=== PATIENT | male | born 1940 | race Caucasian/White ===

== ENCOUNTER → 2016-12-13 | Outpatient (CLI) | payer MEDICARE, BC ==
[2016-12-13 11:42] LABS: Anisocytosis Slight; CH 30.1; CHCM 31.1; HCT 39.5 % (39.0-53.0); HDW 2.61; HGB 12.4 gm/dL (13.0-17.5); Hypochromasia Slight; MCH 30.4 pg (25.0-35.0); MCHC 31.4 g/dL (31.0-37.0); MCV 96.9 fL (80.0-100.0); Mean Platelet Volume 7.2; RBC 4.07 m/uL (4.30-5.90); RDW 16.1 % (11.5-15.5); WBC 19.6 k/uL (3.8-10.6)
[2016-12-13 11:58] LABS: Calcium 8.7 mg/dL (8.4-10.2); Potassium 4.4 mmol/L (3.5-5.1)
== END | disposition home or self-care (01) ==
LOC: LABWHC1 11:09
PROVIDERS: ATTEND Internal Medicine Clinical Cardiac Electrophysiology
DX: I42.8 Other cardiomyopathies (principal); E11.9 Type 2 diabetes mellitus without complications; I44.2 Atrioventricular block, complete
CPT/HCPCS: 36415; 80048; 85027

== ENCOUNTER 2016-12-20 12:46 | Day surgery (SDC) | payer MEDICARE, BC ==
[2016-12-17 16:13] VITALS: BMI 27.1
[~2016-12-20 12:46] MED LIST: CLINDAMYCIN 600 MG in SODIUM CHLORIDE 0.9% IRRIGATIO 250 ML IRRIGATION ONE; CLINDAMYCIN 900 MG in DEXTROSE 5% IN WATER 50 ML IVPB ONE; SODIUM CHLORIDE 0.9% 1,000 ML IV SCH
[2016-12-20] MEDS ORDERED: diphenhydrAMINE 50 MG/ML 1 ML VIAL ONE (13:40)
[2016-12-20] MEDS ORDERED: diphenhydrAMINE 50 MG/ML 1 ML VIAL IVP STA (13:41)
[2016-12-20 13:42] LABS: Glucose,Whole Blood 77 mg/dL (75-99)
[2016-12-20] MEDS ORDERED: fentaNYL (PF) 50 MCG/ML 2 ML AMP ONE (15:34)
[2016-12-20] MEDS ORDERED: PROPOFOL 10 MG/ML 20 ML VIAL IV ONE (15:34)
[2016-12-20] MEDS ORDERED: MIDAZOLAM 2 MG/2 ML VIAL ONE (15:34)
[2016-12-20] MEDS ORDERED: LIDOCAINE 2% INJ 20 MG/ML SQ ONE (16:01)
[2016-12-20] MEDS ORDERED: CLINDAMYCIN 600 MG in SODIUM CHLORIDE 0.9% IRRIGATIO 250 ML IRRIGATION ONE (16:19)
[2016-12-20] MEDS ORDERED: LIDOCAINE 1% INJ 10MG/ML (20 ML MDV) SQ ONE (16:51)
[2016-12-20] MEDS ORDERED: HYDROcodone/APAP 5-325MG 1 EACH TAB PO PRN (17:28)
[2016-12-20] MEDS ORDERED: ACETAMINOPHEN TAB 325 MG TAB PO PRN (17:28)
[2016-12-20] MEDS ORDERED: ACETAMINOPHEN IV (For NPO) 1,000 MG in EMPTY BAG 1 BAG IVPB ONE (17:28)
[2016-12-20] MEDS ORDERED: INSULIN DETEMIR 100 UNIT/ML 10 ML VIAL SQ SCH (17:30)
[2016-12-20] MEDS ORDERED: INSULIN LISPRO (humaLOG) 300 UNIT/3 ML VIAL SQ SCH (17:30)
--- NOTE | 2016-12-20 17:30 | P.PCN ---
Preoperative Diagnosis: Transvenous temporary pacing procedure Indication for the procedure: complete heart block, pacemaker dependency Patient was brought to the EP lab in a fasting state. Written informed consent was obtained prior to the procedure. The right groin was prepped and draped as a protocol. A 6-Turkmen sheath was placed in the right femoral vein. Via this, a temporary pacing catheter was placed in the right ventricle. Thresholds were interrogated. Temporary pacing was performed through the rest of the procedure. At the end of the entire procedure, the TVP was removed. The sheath was removed and hemostasis was assured. Patient tolerated the procedure well without any acute complications. Procedure performed Transvenous temporary pacing
[2016-12-20 18:13] LABS: Glucose,Whole Blood 85 mg/dL (75-99)
--- NOTE | 2016-12-20 18:38 | PCN ---
DATE OF PROCEDURE: This is a 76-year-old male patient who has nonischemic cardiomyopathy, complete heart block, status post bi-V ICD which was on advisory and therefore he is brought in for ICD generator change. He has had sustained ventricular tachycardia recurring, antitachycardia pacing. He also has paroxysmal atrial fibrillation. He is on methotrexate and prednisone for rheumatoid arthritis. The patient was brought to the EP lab in a fasting state. Written informed consent was obtained prior to the procedure after transvenous temporary pacing from the right femoral vein. The left pectoral area was prepped and draped as per protocol. IV antibiotics administered. An incision was made directly over the ICD generator and carried down to level of the generator. The generator was explanted. Partial capsulectomy was performed. Leads were freed and inspected and then interrogated. The new generator was implanted, secured to the underlying pectoralis muscle and the wound was closed in 3 layers and dressed per protocol. The explanted generator was a [employer] medical CD 3365-40 Q. serial #[id number] that was originally implanted 02/04/2015. The new generator was a [employer] medical model number MC3571-63 Q serial #[id number]. The RA lead was a [employer] model #5568, serial #[id number]. The RV ICD lead was a [employer] medical model #7122Q 65 cm in length and serial #[id number]. The LV lead was a [employer] medical model #1458 Q 86 cm in length and serial [id number]. The P waves were 4.4 mV. The pacing impedance 340 ohms, pacing threshold 0.75 v at 0.5 ms. Pacing threshold in the RV was 0.75 v at 0.5 ms, pacing impedance 650 ohms. LV pacing impedance was 1050. Pacing threshold 1 v at 0.5 ms. DFT testing under anesthesia: A DC fib shock was used to induce ventricular fibrillation. This was adequately and appropriately detected at least sensitivity without any dropoffs and successfully internally defibrillated with a 10 joule shock in the cathodal polarity. The charge time was 1.6 seconds. Shocking impedance 75 ohms. No postshock noise. RESULT: Successful biventricular ICD generator change for secondary prevention of sudden cardiac , heart failure management and pacing for complete heart block, (pacemaker dependent). PLAN: Continue current medications and hopefully, this can be maximized as an outpatient.
--- NOTE | 2016-12-20 18:40 | DS ---
DATE OF ADMISSION: 12/20/2016 DATE OF DISCHARGE: Mr. Diaz underwent a Bi-V ICD generator change. He will be discharged home tomorrow after completion of IV antibiotics. DFT was at or below 10 joules in the cathodal polarity. He required TVP because he has complete heart block, and pacemaker dependent.
[2016-12-20 18:42] LABS: Glucose,Whole Blood 89 mg/dL (75-99)
[2016-12-20] MEDS: CARVEDILOL 12.5 MG TAB PO SCH (19:49)
[2016-12-20] MEDS: predniSONE 20 MG TAB PO SCH (19:49)
[2016-12-20] MEDS: CLINDAMYCIN 900 MG in DEXTROSE 5% IN WATER 50 ML IVPB SCH ×2 (19:49)
[2016-12-20] MEDS ORDERED: SYMBICORT 80-4.5 MCG INHALER INHALATION SCH (20:00)
[2016-12-20] MEDS ORDERED: PRAVASTATIN SODIUM 40 MG TAB PO SCH (21:00)
[2016-12-20] MEDS ORDERED: MELATONIN 3 MG TABLET PO SCH (21:00)
[2016-12-20] MEDS ORDERED: CARVEDILOL 6.25 MG TAB PO SCH (21:00)
[2016-12-20 22:14] LABS: Glucose,Whole Blood 208 mg/dL (75-99)
[2016-12-21] MEDS: CLINDAMYCIN 900 MG in DEXTROSE 5% IN WATER 50 ML IVPB SCH ×6 (03:28→14:53)
[2016-12-21 06:44] LABS: Glucose,Whole Blood 216 mg/dL (75-99)
[2016-12-21] MEDS ORDERED: INSULIN LISPRO (humaLOG) 300 UNIT/3 ML VIAL SQ SCH ×2 (07:30→12:30)
[2016-12-21] MEDS: predniSONE 20 MG TAB PO SCH (08:10)
[2016-12-21 08:13] VITALS: RESP 18
[2016-12-21 08:19] LABS: Hemoglobin A1C 6.7 % (4.2-6.1)
[2016-12-21] MEDS: CARVEDILOL 12.5 MG TAB PO SCH (08:58)
[2016-12-21] MEDS ORDERED: ASPIRIN 81 MG CHEW PO SCH (09:00)
[2016-12-21] MEDS ORDERED: LOSARTAN 25 MG TAB PO SCH (09:00)
[2016-12-21] MEDS ORDERED: TORSEMIDE 20 MG TAB PO SCH (09:00)
[2016-12-21 12:18] LABS: Glucose,Whole Blood 236 mg/dL (75-99)
[2016-12-21 12:37] VITALS: BP 147/66; PULSE 60; TEMP 97.8
--- NOTE | 2016-12-22 18:22 | PN ---
Mark Diaz is a 76-year-old male patient who underwent Bi-V ICD generator change for a device alert advisory. Postoperatively on the 21 of December, he was doing well. No shortness of breath. No orthopnea or PND, but his blood pressure was quite high and he has been complaining of being short of breath and tired and fatigued. Therefore, I had increased dose of carvedilol the night before. He denies any chest discomfort. There is no hematoma. The wound is healing well. Heart sounds are normal. Breath sounds are normal. No rhonchi. No crackles. No S3 gallop. EXTREMITIES: Warm. No edema. IMPRESSION: 1. Severe cardiomyopathy. 2. Hypertension, uncontrolled. 3. Status post biventricular implantable cardioverter-defibrillator implantation. SUGGEST: Increase the dose of carvedilol and follow up in the pacemaker clinic in 5 days.
== END 2016-12-21 15:48 | disposition home or self-care (01) ==
LOC: CATHEP 12:46 → 3OBS 17:25 → CATHEP 12-21 15:48
PROVIDERS: ATTEND Internal Medicine Clinical Cardiac Electrophysiology
DX: Z45.02 Encounter for adjustment and management of automatic implantable cardiac defibrillator (principal); I42.9 Cardiomyopathy, unspecified; I44.2 Atrioventricular block, complete; I10 Essential (primary) hypertension; E78.2 Mixed hyperlipidemia; E11.9 Type 2 diabetes mellitus without complications; Z79.4 Long term (current) use of insulin; K21.9 Gastro-esophageal reflux disease without esophagitis; M05.10 Rheumatoid lung disease with rheumatoid arthritis of unspecified site; K44.9 Diaphragmatic hernia without obstruction or gangrene; I65.21 Occlusion and stenosis of right carotid artery; Z86.73 Personal history of transient ischemic attack (TIA), and cerebral infarction without residual deficits; Z87.891 Personal history of nicotine dependence; Z79.82 Long term (current) use of aspirin; Z79.52 Long term (current) use of systemic steroids; Z79.899 Other long term (current) drug therapy; Z88.0 Allergy status to penicillin; Z88.1 Allergy status to other antibiotic agents; Z91.041 Radiographic dye allergy status
CPT/HCPCS: 93641; 33264; 83036; C1894; C1769 ×2; C1730; C1882; J2001 ×2; J2250; J1200; J3010; J2704; J7512 ×2

== ENCOUNTER 2017-01-09 16:16 | Inpatient (IN) | payer MEDICARE, BC ==
[2017-01-09] MEDS ORDERED: SODIUM CHLORIDE 0.9% 500 ML IV STA (17:19)
[2017-01-09] MEDS ORDERED: SODIUM CHLORIDE 0.9% 1,000 ML IV STA (17:19)
[2017-01-09] MEDS ORDERED: IPRATROPIUM-ALBUTEROL 3 ML NEB INHALATION STA (17:20)
[2017-01-09] MEDS ORDERED: ACETAMINOPHEN IV (For NPO) 1,000 MG in EMPTY BAG 1 BAG IVPB STA (17:20)
--- NOTE | 2017-01-09 17:32 | ED ---
General Adult HPI - General Chief complaint: Fever Stated complaint: Cough/Weakness Time Seen by Provider: 01/09/17 17:19 Source: patient, family, RN notes reviewed, old records reviewed Mode of arrival: wheelchair Limitations: no limitations - History of Present Illness Initial comments: This is a 76-year-old male here for evaluation. The patient is safe for evaluation of shortness of breath cough and congestion, positive fever. Patient states feels just like prior history of pneumonia, patient has history of COPD and mild heart disease. Patient states he has no significant chest pain at this time, mild diaphoresis occasional with fever. No modifying factors for symptoms at all, not currently on. She was. Patient states symptoms going on for about 2 days progressively worsening, to the patient was worse and unable to get activities done. - Related Data Home Medications Medication Instructions Recorded Confirmed Allopurinol [Allopurinol] 300 mg PO DAILY 05/31/16 01/09/17 Aspirin EC [Ecotrin Low Dose] 81 mg PO DAILY 05/31/16 01/09/17 Insulin Detemir [Levemir Flextouch] 48 - 50 units SQ HS 05/31/16 01/09/17 Pantoprazole Sodium [Pantoprazole 40 mg PO DAILY 05/31/16 01/09/17 Sodium] Pravastatin Sodium [Pravastatin 40 mg PO HS 05/31/16 01/09/17 Sodium] Multivitamin [Men's Multi-Vitamin] 1 tab PO DAILY 12/17/16 01/09/17 Carvedilol [Coreg] 12.5 mg PO BID 01/09/17 01/09/17 Folic Acid 1 mg PO DAILY 01/09/17 01/09/17 INSULIN LISPRO (humaLOG) [humaLOG 7 - 10 units SQ AC-TID 01/09/17 01/09/17 (formulary)] Losartan [Cozaar] 25 mg PO DAILY 01/09/17 01/09/17 Torsemide 10 mg PO DAILY 01/09/17 01/09/17 predniSONE 20 mg PO BID 01/09/17 01/09/17 Allergies Allergy/AdvReac Type Severity Reaction Status Date / Time amlodipine Allergy Swelling Verified 01/09/17 18:41 amoxicillin trihydrate Allergy Nausea & Verified 01/09/17 18:41 [From Augmentin] Vomiting iodine Allergy Rash/Hives Verified 01/09/17 17:08 metronidazole [From Flagyl] Allergy Rash/Hives Verified 01/09/17 18:41 potassium clavulanate Allergy Nausea & Verified 01/09/17 18:41 [From Augmentin] Vomiting shrimp Allergy Rash/Hives Verified 01/09/17 17:08 acarbose AdvReac Abdominal Verified 01/09/17 17:08 Pain doxycycline AdvReac Anaphylaxis Verified 01/09/17 18:41 Review of Systems ROS Statement: Those systems with pertinent positive or pertinent negative responses have been documented in the HPI. ROS Other: All systems not noted in ROS Statement are negative. Past Medical History Past Medical History: COPD, CVA/TIA, Hyperlipidemia, Hypertension Additional Past Medical History / Comment(s): Hiatal hernia, CVA, diverticulosis History of Any Multi-Drug Resistant Organisms: None Reported Past Surgical History: AICD, Back Surgery, Pacemaker Past Psychological History: No Psychological Hx Reported Smoking Status: Former smoker Past Alcohol Use History: None Reported Past Drug Use History: None Reported General Exam Limitations: no limitations General appearance: alert, anxious, in distress Head exam: Present: atraumatic, normocephalic, normal inspection Eye exam: Present: normal appearance, PERRL, EOMI. Absent: scleral icterus, conjunctival injection, periorbital swelling ENT exam: Present: normal exam, mucous membranes moist Neck exam: Present: normal inspection. Absent: tenderness, meningismus, lymphadenopathy Respiratory exam: Present: normal lung sounds bilaterally, wheezes, accessory muscle use, decreased breath sounds, prolonged expiratory. Absent: respiratory distress, rales, rhonchi, stridor Cardiovascular Exam: Present: regular rate, normal rhythm, normal heart sounds. Absent: systolic murmur, diastolic murmur, rubs, gallop, clicks GI/Abdominal exam: Present: soft, normal bowel sounds. Absent: distended, tenderness, guarding, rebound, rigid Extremities exam: Present: normal inspection, full ROM, normal capillary refill. Absent: tenderness, pedal edema, joint swelling, calf tenderness Back exam: Present: normal inspection Neurological exam: Present: alert, oriented X3, CN II-XII intact Psychiatric exam: Present: normal affect, normal mood Skin exam: Present: warm, dry, intact, normal color. Absent: rash Course Vital Signs 01/09/17 01/09/17 01/09/17 17:06 17:39 17:53 Temperature 100.0 F H Pulse Rate 97 100 100 Respiratory 20 Rate Blood Pressure 153/75 O2 Sat by Pulse 97 Oximetry 01/09/17 18:54 Temperature 100.8 F H Pulse Rate 98 Respiratory 18 Rate Blood Pressure 149/86 O2 Sat by Pulse 95 Oximetry - Reevaluation(s) Reevaluation #1: 01/09/17 19:00 Patient with no real significant improvement of breathing and/or symptoms EKG Findings - EKG Comments: EKG Findings:: EKG shows paced rhythm rate of 90, IN 140, QRS 126, QTc 479 Medical Decision Making - Medical Decision Making Rhizomelia reversed if he returns with cough and congestion COPD exacerbation with probable underlying pneumonia positive fever positive flu elevated troponin , and STEMI, no EKG changes. Patient be admitted for cardiopulmonary status and hemodynamic monitoring - Lab Data Result diagrams: 01/09/17 17:25 01/09/17 17:25 Lab Results 01/09/17 01/09/17 01/09/17 Range/Units 17:25 17:25 17:25 WBC 23.1 H (3.8-10.6) k/uL RBC 4.57 (4.30-5.90) m/uL Hgb 13.6 (13.0-17.5) gm/dL Hct 41.6 (39.0-53.0) % MCV 91.1 D (80.0-100.0) fL MCH 29.7 (25.0-35.0) pg MCHC 32.5 (31.0-37.0) g/dL RDW 16.8 H (11.5-15.5) % Plt Count 253 (150-450) k/uL Neutrophils % 59 % Lymphocytes % 35 % Monocytes % 3 % Eosinophils % 1 % Basophils % 1 % Neutrophils # 13.7 H (1.3-7.7) k/uL Lymphocytes # 8.0 H (1.0-4.8) k/uL Monocytes # 0.7 (0-1.0) k/uL Eosinophils # 0.2 (0-0.7) k/uL Basophils # 0.1 (0-0.2) k/uL Anisocytosis Slight PT (9.0-12.0) sec INR (<1.1) APTT (22.0-30.0) sec Sodium 139 (137-145) mmol/L Potassium 3.6 (3.5-5.1) mmol/L Chloride 102 (98-107) mmol/L Carbon Dioxide 27 (22-30) mmol/L Anion Gap 10 mmol/L BUN 26 H (9-20) mg/dL Creatinine 1.30 H (0.66-1.25) mg/dL Est GFR (MDRD) Af Amer >60 (>60 ml/min/1.73 sqM) Est GFR (MDRD) Non-Af 54 (>60 ml/min/1.73 sqM) Glucose 116 H (74-99) mg/dL Plasma Lactic Acid Daljit (0.7-2.0) mmol/L Calcium 8.7 (8.4-10.2) mg/dL Phosphorus 3.0 (2.5-4.5) mg/dL Magnesium 1.7 (1.6-2.3) mg/dL Total Bilirubin 0.9 (0.2-1.3) mg/dL AST 21 (17-59) U/L ALT 43 (21-72) U/L Alkaline Phosphatase 56 (38-126) U/L Total Creatine Kinase 39 L (55-170) U/L CK-MB (CK-2) 0.6 (0.0-2.4) ng/mL CK-MB (CK-2) Rel Index 1.5 Troponin I 0.137 H* (0.000-0.034) ng/mL Total Protein 6.2 L (6.3-8.2) g/dL Albumin 3.4 L (3.5-5.0) g/dL Influenza Type A RNA (Not Detectd) Influenza Type B (PCR) (Not Detectd) 01/09/17 01/09/17 01/09/17 Range/Units 17:25 17:25 17:53 WBC (3.8-10.6) k/uL RBC (4.30-5.90) m/uL Hgb (13.0-17.5) gm/dL Hct (39.0-53.0) % MCV (80.0-100.0) fL MCH (25.0-35.0) pg MCHC (31.0-37.0) g/dL RDW (11.5-15.5) % Plt Count (150-450) k/uL Neutrophils % % Lymphocytes % % Monocytes % % Eosinophils % % Basophils % % Neutrophils # (1.3-7.7) k/uL Lymphocytes # (1.0-4.8) k/uL Monocytes # (0-1.0) k/uL Eosinophils # (0-0.7) k/uL Basophils # (0-0.2) k/uL Anisocytosis PT 9.8 (9.0-12.0) sec INR 1.0 (<1.1) APTT 20.6 L (22.0-30.0) sec Sodium (137-145) mmol/L Potassium (3.5-5.1) mmol/L Chloride (98-107) mmol/L Carbon Dioxide (22-30) mmol/L Anion Gap mmol/L BUN (9-20) mg/dL Creatinine (0.66-1.25) mg/dL Est GFR (MDRD) Af Amer (>60 ml/min/1.73 sqM) Est GFR (MDRD) Non-Af (>60 ml/min/1.73 sqM) Glucose (74-99) mg/dL Plasma Lactic Acid Daljit 1.7 (0.7-2.0) mmol/L Calcium (8.4-10.2) mg/dL Phosphorus (2.5-4.5) mg/dL Magnesium (1.6-2.3) mg/dL Total Bilirubin (0.2-1.3) mg/dL AST (17-59) U/L ALT (21-72) U/L Alkaline Phosphatase (38-126) U/L Total Creatine Kinase (55-170) U/L CK-MB (CK-2) (0.0-2.4) ng/mL CK-MB (CK-2) Rel Index Troponin I (0.000-0.034) ng/mL Total Protein (6.3-8.2) g/dL Albumin (3.5-5.0) g/dL Influenza Type A RNA Detected A (Not Detectd) Influenza Type B (PCR) Detected A (Not Detectd) - Radiology Data Radiology results: report reviewed (Chest x-ray shows possible pneumonia), image reviewed Critical Care Time Critical Care Time: Yes Total Critical Care Time: 31 Disposition Clinical Impression: Influenza, NSTEMI (non-ST elevated myocardial infarction), Fever Disposition: ADMITTED IP TO THIS HOSP Condition: Serious Referrals: Rikki Trent DO [Primary Care Provider] - 1-2 days
[2017-01-09 18:10] LABS: Anisocytosis Slight; Basophils # (A) 0.1 k/uL (0-0.2); Basophils % (A) 1 %; CH 30.6; CHCM 33.6; Eosinophils # (A) 0.2 k/uL (0-0.7); Eosinophils % (A) 1 %; HCT 41.6 % (39.0-53.0); HGB 13.6 gm/dL (13.0-17.5); Luc # (Auto) 0.42; Luc % (Auto) 2; Lymphocytes % (A) 35 %; MCH 29.7 pg (25.0-35.0); MCHC 32.5 g/dL (31.0-37.0); Mean Platelet Volume 7.4; Monocytes # (A) 0.7 k/uL (0-1.0); Monocytes % (A) 3 %; Neutrophils # (A) 13.7 k/uL (1.3-7.7); Neutrophils % (A) 59 %; RBC 4.57 m/uL (4.30-5.90); RDW 16.8 % (11.5-15.5); WBC 23.1 k/uL (3.8-10.6); WBC (Perox) 22.44
[2017-01-09 18:25] LABS: Prothrombin Time 9.8 sec (9.0-12.0)
[2017-01-09 18:32] LABS: MCV 91.1 fL (80.0-100.0)
[2017-01-09 18:35] LABS: ALT 43 U/L (21-72); AST 21 U/L (17-59); Alkaline Phosphatase 56 U/L (38-126); Anion Gap 10 mmol/L; Blood Urea Nitrogen 26 mg/dL (9-20); Calcium 8.7 mg/dL (8.4-10.2); Carbon Dioxide 27 mmol/L (22-30); Chloride 102 mmol/L (98-107); Glucose 116 mg/dL (74-99); Magnesium 1.7 mg/dL (1.6-2.3); Non-African American GFR(MDRD) 54 (>60 ml/min/1.73 sqM); Potassium 3.6 mmol/L (3.5-5.1); Sodium 139 mmol/L (137-145); Total Bilirubin 0.9 mg/dL (0.2-1.3); Total Protein 6.2 g/dL (6.3-8.2)
[2017-01-09 18:40] LABS: Partial Thromboplastin Time 20.6 sec (22.0-30.0)
--- NOTE | 2017-01-09 18:40 | XR ---
EXAMINATION TYPE: XR chest 2V DATE OF EXAM: 01/09/2017 6:35 PM COMPARISON: 10/30/2016 HISTORY: Cough and congestion TECHNIQUE: Frontal and lateral views of the chest are obtained. FINDINGS: There is no heart failure nor confluent pneumonic infiltrate. There are no hilar masses. T here is a left axillary pacemaker with the lead tips in the right ventricle. There are chest leads. T here is no pleural effusion. Bony thorax is intact. IMPRESSION: No active cardiopulmonary disease. There is improved aeration of the lung bases compared to last exam. No heart failure.
[2017-01-09 18:50] LABS: Creatine Kinase MB 0.6 ng/mL (0.0-2.4)
[2017-01-09 18:52] LABS: Troponin I 0.137 ng/mL (0.000-0.034)
[2017-01-09] MEDS ORDERED: OSELTAMIVIR 75 MG CAP PO STA (18:55)
[2017-01-09] MEDS ORDERED: HEPARIN SODIUM,PORCINE 5,000 UNIT/ML 1 ML VIAL IV ONE (18:57)
[2017-01-09] MEDS ORDERED: ASPIRIN 81 MG CHEW PO STA (18:57)
[2017-01-09] MEDS ORDERED: NITROGLYCERIN SL TABS 0.4 MG TAB SUBLINGUAL PRN (18:57)
[2017-01-09] MEDS ORDERED: MORPHINE SULFATE 4 MG/ML SYRINGE IV PRN (18:57)
[2017-01-09] MEDS ORDERED: HEPARIN SODIUM,PORCINE/D5W PMX 25,000 UNIT in DEXTROSE/WATER 1 500ML.BAG IV SCH (19:00)
[2017-01-09] MEDS: SODIUM CHLORIDE 0.9% 1,000 ML IV SCH (19:25)
[2017-01-09] MEDS: IPRATROPIUM-ALBUTEROL 3 ML NEB INHALATION SCH (20:19)
[2017-01-09 23:15] LABS: Appearance,Urine Clear (Clear); Bilirubin,Urine Negative (Negative); Glucose,Urine (UA) Negative (Negative); Ketones,Urine Negative (Negative); Leukocyte Esterase,Urine Negative (Negative); Mucus,Urine Rare /hpf; Nitrite,Urine Negative (Negative); PH, Urine 5.5 (5.0-8.0); Particle Count 775; Protein,Urine 1+ (Negative); RBC,Urine 1 /hpf (0-5); Specific Gravity,Urine 1.012 (1.001-1.035); UA Billing (MACRO vs. MICRO) MICRO; Urobilinogen,Urine <2.0 mg/dL (<2.0); WBC,Urine <1 /hpf (0-5)
[2017-01-10 00:28] LABS: Glucose,Whole Blood 131 mg/dL (75-99)
[2017-01-10 01:06] LABS: Creatine Kinase MB 0.7 ng/mL (0.0-2.4)
[2017-01-10 01:09] LABS: Troponin I 0.137 ng/mL (0.000-0.034)
[2017-01-10] MEDS ORDERED: HEPARIN SODIUM,PORCINE 5,000 UNIT/ML 1 ML VIAL IV PRN (01:31)
[2017-01-10 03:32] VITALS: BMI 29.7
[2017-01-10 06:31] LABS: Mean Platelet Volume 7.7
[2017-01-10 06:32] LABS: Glucose,Whole Blood 182 mg/dL (75-99)
[2017-01-10 06:41] LABS: Cholesterol 169 mg/dL (<200); HDL Cholesterol 61 mg/dL (40-60); Triglycerides 277 mg/dL (<150)
[2017-01-10] MEDS: SODIUM CHLORIDE 0.9% 1,000 ML IV SCH ×3 (06:58→22:18)
[2017-01-10] MEDS: INSULIN LISPRO (humaLOG) 300 UNIT/3 ML VIAL SQ SCH ×4 (06:58→22:20)
[2017-01-10 07:03] LABS: Creatine Kinase MB 0.8 ng/mL (0.0-2.4)
[2017-01-10 07:05] LABS: Troponin I 0.088 ng/mL (0.000-0.034)
[2017-01-10] MEDS: IPRATROPIUM-ALBUTEROL 3 ML NEB INHALATION SCH ×4 (08:16→19:51)
[2017-01-10] MEDS: ASPIRIN 325 MG TAB PO SCH (08:39)
[2017-01-10] MEDS ORDERED: ATORVASTATIN 80 MG TAB PO SCH ×2 (09:00→21:00)
[2017-01-10] MEDS ORDERED: OSELTAMIVIR 75 MG CAP PO SCH (09:00)
[2017-01-10 10:08] LABS: Hemoglobin A1C 7.4 % (4.2-6.1)
--- NOTE | 2017-01-10 10:51 | ECHOF ---
Referral Reason:elevtROP MEASUREMENTS -------- HEIGHT: 182.9 cm WEIGHT: 99.3 kg BP: 169/75 RVIDd: 2.9 cm (< 3.3) IVSd: 1.4 cm (0.6 - 1.1) LVIDd: 4.7 cm (3.9 - 5.3) LVPWd: 1.5 cm (0.6 - 1.1) IVSs: 1.8 cm LVIDs: 3.6 cm LVPWs: 2.0 cm LA Diam: 3.7 cm (2.7 - 3.8) LAESV Index (A-L): 36.61 ml/m Ao Diam: 3.5 cm (2.0 - 3.7) AV Cusp: 2.3 cm (1.5 - 2.6) LA Diam: 3.6 cm (2.7 - 3.8) MV EXCURSION: 12.842 mm (> 18.000) MV EF SLOPE: 96 mm/s (70 - 150) EPSS: 0.9 cm MV E Valerio: 1.17 m/s MV DecT: 191 ms MV A Valerio: 1.12 m/s MV E/A Ratio: 1.04 AR PHT: 612 ms RAP: 5.00 mmHg RVSP: 40.48 mmHg FINDINGS -------- Paced rhythm. Pacerwire seen in RV and RA. This was a technically good study. There is moderate concentric left ventricular hypertrophy. Overall left ventricular systolic function is normal with, an EF between 55 - 60 %. The right ventricle is normal in size. LA is moderately dilated 34-39 ml/m2 The right atrium is normal in size. Aortic valve is trileaflet and is mildly thickened. There is mild aortic regurgitation. The mitral valve leaflets are mildly thickened. Mild mitral annular calcification present. Mild mitral regurgitation is present. Mild tricuspid regurgitation present. There is no evidence of pulmonary hypertension. The right ventricular systolic pressure, as measured by Doppler, is 40.48mmHg. Trace/mild (physiologic) pulmonic regurgitation. The aortic root size is normal. Normal inferior vena cava with normal inspiratory collapse consistent with estimated right atrial pressure of 5 mmHg. Echo free space may represent effusion or a pericardial fat pad. CONCLUSIONS -------- 1. Paced rhythm. 2. There is mild aortic regurgitation. 3. The mitral valve leaflets are mildly thickened. 4. Mild mitral annular calcification present. 5. Mild mitral regurgitation is present. 6. Mild tricuspid regurgitation present. 7. There is no evidence of pulmonary hypertension. 8. The right ventricular systolic pressure, as measured by Doppler, is 40.48mmHg. 9. Trace/mild (physiologic) pulmonic regurgitation. 10. The aortic root size is normal. 11. Echo free space may represent effusion or a pericardial fat pad. 12. Pacerwire seen in RV and RA. 13. This was a technically good study. 14. There is moderate concentric left ventricular hypertrophy. 15. Overall left ventricular systolic function is normal with, an EF between 55 - 60 %. 16. The right ventricle is normal in size. 17. LA is moderately dilated 34-39 ml/m2 18. The right atrium is normal in size. 19. Aortic valve is trileaflet and is mildly thickened. [employer]ATING SAF[employer]Y OFFICER: Lucy Christine RDCS
--- NOTE | 2017-01-10 11:07 | CONS ---
DATE OF CONSULTATION: CHIEF COMPLAINT: Elevated troponin. HISTORY OF PRESENT ILLNESS: Mark is a 74-year-old gentleman with history of sick sinus syndrome, status post permanent pacemaker placement, dyslipidemia, hypertension and insulin-dependent diabetes who presented to hospital with a flulike illness. He has had fever, cough, productive sputum for the last few days and on this admission he had a troponins done that came back elevated for which cardiology has been consulted. His tropes are at 0.1, 0.1 and 0.08. EKG reveals paced rhythm without acute ST-T wave changes. I believe the troponin elevation is related to the acute illness related to flow and patient did not have acute myocardial infarction. He is positive for both influenza A and B. I am going to stop his IV heparin and put him on subcu heparin and continue supportive care. His prognosis is guarded from the flu. Past medical history is significant for hypertension, dyslipidemia, sick sinus syndrome, status post permanent pacemaker placement. MEDICATIONS: 1. He is on pravastatin 40 daily. 2. Protonix. 3. Cozaar 25 daily. 4. Multivitamin. 5. Insulin. 6. Allopurinol. 7. Aspirin. 8. Coreg. 9. Torsemide. THE PATIENT IS ALLERGIC TO AMLODIPINE IODINE, AUGMENTIN, FLAGYL, SHRIMP AND DOXYCYCLINE. FAMILY HISTORY: Negative for premature coronary artery disease. SOCIAL HISTORY: Negative for current smoking, ETOH abuse, or drug abuse. REVIEW OF SYSTEMS: HEENT: Significant for stuffy nose. RESPIRATORY: As described above. CARDIAC: As described above. GI: Negative. GENITOURINARY: Negative. Allergy/immunology: Negative. SKIN: Negative. MUSCULOSKELETAL: Significant for aches and pains. ENDOCRINE: Negative. HEMATOLOGICAL: Negative. Oncological: Negative. DERM: Negative. The rest of the system review is not relevant. On exam, heart rate is 90 beats per minute, blood pressure 198/84, respiratory rate is 18. Chest exam reveals occasional rhonchi bilaterally. Heart exam reveals first and second heart sounds. Systolic murmur at the apex. Abdomen soft. Exam of the extremities did not reveal edema. Peripheral pulses are felt. Labs show the elevated troponins, LDL cholesterol is normal. BUN is 26. Creatinine is 1.3. Potassium is 3.6. Hemoglobin is 13.6, platelet count is 253. ASSESSMENT: 1. Elevated troponin probably related to flu like illness. 2. Uncontrolled hypertension. 3. Flu. 4. Sick sinus syndrome, status post permanent pacemaker placement. PLAN: We will control his blood pressure optimally. He does not require further cardiac evaluation on this admission but on discharge we will set up an appointment with cardiology.
[2017-01-10 11:35] LABS: Glucose,Whole Blood 188 mg/dL (75-99)
[2017-01-10] MEDS: CARVEDILOL 12.5 MG TAB PO SCH ×2 (12:16→17:38)
[2017-01-10] MEDS: LOSARTAN 25 MG TAB PO SCH (12:16)
[2017-01-10] MEDS ORDERED: HYDROcodone/APAP 5-325MG 1 EACH TAB PO PRN (13:51)
[2017-01-10] MEDS ORDERED: ACETAMINOPHEN TAB 500 MG TAB PO PRN (13:51)
[2017-01-10] MEDS ORDERED: ALPRAZolam 0.25 MG TAB PO PRN (13:51)
[2017-01-10] MEDS ORDERED: NON-FORMULARY DRUG (Aspirin Ec 81 MG) PO SCH (14:00)
--- NOTE | 2017-01-10 14:37 | HP ---
DATE OF ADMISSION: The chief complaints are fever and weakness. HISTORY OF PRESENT ILLNESS: This 76-year-old gentleman with a past medical history of diabetes mellitus, hypertension, hyperlipidemia, history of CVA, TIA, history of hiatal hernia, history of cardiomyopathy nonischemic, history of AICD, history of DJD, being followed by Dr. Rikki Trent in [place], was not feeling well for the past couple of days according to the family. The patient had initially cough and sputum and subsequently patient felt tired and weak and patient came to [facility] and admitted for further evaluation of treatment. There is no history of any headache, loss of consciousness, confusion, hematemesis, hematochezia, melena at this time. White count is elevated to 23.1, creatinine is 1.3, glucose is 188, troponin is 0.137, 0.137, 0.088. The EKG present on admission showed paced rhythm. Otherwise, the chest x-ray was also done, which showed no active pulmonary disease. A 2-D echo with a Doppler showed ejection fraction about 55% to 60% with LA moderately dilated at 34 to 39 mL. Medications prior to admission include, home medications are: 1. Torsemide 10 mg p.o. daily. 2. Coreg 12.5 mg p.o. b.i.d. 3. Ecotrin 81 mg p.o. daily. 4. Allopurinol 300 mg b.i.d. 5. Levemir 48 to 50 subQ q.h.s. 6. Humalog scale 7 to 10 units a.c. t.i.d. 7. Folic acid 1 mg daily. 8. Multivitamin 1 p.o. daily. 9. Cozaar 25 mg daily. 10. Prednisone 20 mg p.o. b.i.d. 11. Pravastatin 40 mg q.h.s. 12. Protonix 40 mg daily. ALLERGIES: AMLODIPINE, AMOXICILLIN, LODINE, METRONIDAZOLE, AUGMENTIN, ACARBOSE, DOXYCYCLINE. FAMILY HISTORY: No history of heart disease or strokes in the family. SOCIAL HISTORY: History of smoking. Occasional alcohol intake. REVIEW OF SYSTEMS: ENT: No diminished in vision or hearing. CARDIOVASCULAR: As mentioned earlier. RESPIRATORY SYSTEM: As mentioned earlier. GI: No nausea. : No dysuria. NERVOUS SYSTEM: No numbness or weakness. ALLERGY/IMMUNOLOGY: No asthma or hayfever. MUSCULOSKELETAL: As mentioned earlier. HEMATOLOGY: No history of anemia. ENDOCRINE: No history of diabetes and hypothyroidism. CONSTITUTIONAL: As mentioned earlier. DERMATOLOGY: Negative. RHEUMATOLOGY: Negative. PSYCHIATRY: As mentioned earlier. PHYSICAL EXAM: Patient is alert and oriented x3. Pulse 77, blood pressure 137/66, respirations 18, temperature 98.4, pulse ox 93% on room air. HEENT: Conjunctivae normal. Oral mucosa moist. NECK: No jugular venous distension. No carotid bruit, no lymph node enlargement. CARDIOVASCULAR SYSTEM: S1, S2, muffled. No S3, no S4. RESPIRATORY: Breath sounds diminished at the bases, a few scattered rhonchi, no crackles. Abdomen is soft, nontender. No mass palpable. EXTREMITIES: No edema, nos welling. NERVOUS SYSTEMS: Higher functions as mentioned earlier. Moves all 4 limbs. No focal motor or sensory deficits. LYMPHATICS: No lymph node palpable in neck, axillae or groin. SKIN: No ulcers, rash or bleeding. Labs are WBC is 23.1 and hemoglobin is 13.6. Otherwise APTT is 20.6, creatinine is 1.3. Other labs are noted. Influenza A is positive. ASSESSMENT: 1. Acute influenza A with respiratory distress and as well as acute purulent tracheobronchitis. 2. Increased WBC. 3. Troponin 0.137, rule out acute non-ST segment elevation myocardial infarction. 4. Increased creatinine with chronic kidney disease stage III. 5. Hypertriglyceridemia. 6. Mild hypoalbuminemia. 7. History of nonischemic cardiomyopathy and biventricular AICD. 8. History of cerebrovascular accident, transient ischemic attack. 9. Diabetes mellitus type 2. 10. Hypertension. 11. Hyperlipidemia. 12. History of hiatal hernia. 13. History of degenerative joint disease, back surgery. 14. Remote history nicotine dependence. 15. FULL CODE. RECOMMENDATION: In this 76-year-old gentleman who presented with multiple complex medical issues, will monitor the patient closely. Continue with the current medications. Continue with the symptomatic treatment Tamiflu, empiric antibiotics, bronchodilators. I would recommend a closely follow up with Cardiology. Guarded prognosis because of multiple complex medical issues and further recommendations to follow. Medication reconciliation has also been done. Ejection fraction is noted and will resume the home medications as well. Further recommendations to follow.
[2017-01-10] MEDS ORDERED: LEVOFLOXACIN 500MG-D5W PMX 500 MG in DEXTROSE/WATER 1 100ML.BAG IVPB SCH (15:00)
[2017-01-10 16:58] LABS: Glucose,Whole Blood 192 mg/dL (75-99)
[2017-01-10] MEDS: HEPARIN SODIUM,PORCINE 5,000 UNIT/ML 1 ML VIAL SQ SCH ×2 (17:38→22:19)
[2017-01-10] MEDS ORDERED: INSULIN DETEMIR 100 UNIT/ML 10 ML VIAL SQ SCH (21:00)
[2017-01-10] MEDS ORDERED: MELATONIN 3 MG TABLET PO SCH (21:00)
[2017-01-10] MEDS: predniSONE 20 MG TAB PO SCH (22:19)
[2017-01-10 22:23] LABS: Glucose,Whole Blood 150 mg/dL (75-99)
[2017-01-10 22:57] VITALS: TEMP 98.4
[2017-01-11 06:15] LABS: Anisocytosis Slight; Basophils % (A) 0 %; CH 30.7; CHCM 33.2; Eosinophils % (A) 0 %; HCT 32.5 % (39.0-53.0); HGB 10.3 gm/dL (13.0-17.5); Luc # (Auto) 0.19; Luc % (Auto) 2; Lymphocytes # (A) 2.5 k/uL (1.0-4.8); Lymphocytes % (A) 21 %; MCH 29.6 pg (25.0-35.0); MCHC 31.9 g/dL (31.0-37.0); MCV 92.9 fL (80.0-100.0); Monocytes # (A) 0.3 k/uL (0-1.0); Monocytes % (A) 3 %; Neutrophils % (A) 75 %; RDW 16.5 % (11.5-15.5); WBC 12.1 k/uL (3.8-10.6); WBC (Perox) 11.45
[2017-01-11 06:17] LABS: Anion Gap 7 mmol/L; Blood Urea Nitrogen 17 mg/dL (9-20); Calcium 7.8 mg/dL (8.4-10.2); Carbon Dioxide 25 mmol/L (22-30); Chloride 105 mmol/L (98-107); Glucose 160 mg/dL (74-99); Non-African American GFR(MDRD) >60 (>60 ml/min/1.73 sqM); Potassium 4.2 mmol/L (3.5-5.1); Sodium 137 mmol/L (137-145)
[2017-01-11 07:20] LABS: Glucose,Whole Blood 150 mg/dL (75-99)
[2017-01-11] MEDS ORDERED: PANTOPRAZOLE 40 MG TABLET PO SCH (07:30)
[2017-01-11 07:38] VITALS: RESP 19
[2017-01-11] MEDS: INSULIN LISPRO (humaLOG) 300 UNIT/3 ML VIAL SQ SCH ×2 (07:56→12:22)
[2017-01-11] MEDS: CARVEDILOL 12.5 MG TAB PO SCH (07:57)
[2017-01-11] MEDS: LOSARTAN 25 MG TAB PO SCH (08:48)
[2017-01-11] MEDS: HEPARIN SODIUM,PORCINE 5,000 UNIT/ML 1 ML VIAL SQ SCH (08:48)
[2017-01-11] MEDS: predniSONE 20 MG TAB PO SCH (08:48)
[2017-01-11] MEDS: ASPIRIN 325 MG TAB PO SCH (08:48)
[2017-01-11] MEDS ORDERED: TORSEMIDE 20 MG TAB PO SCH (09:00)
[2017-01-11] MEDS ORDERED: ALLOPURINOL 300 MG TAB PO SCH (09:00)
[2017-01-11] MEDS ORDERED: OSELTAMIVIR 75 MG CAP PO SCH ×2 (09:00→21:00)
[2017-01-11] MEDS: IPRATROPIUM-ALBUTEROL 3 ML NEB INHALATION SCH ×2 (09:56→13:16)
[2017-01-11 11:44] LABS: Glucose,Whole Blood 230 mg/dL (75-99)
[2017-01-11] MEDS ORDERED: MULTIVITAMINS, THERA 1 EACH TAB PO SCH (12:00)
[2017-01-11] MEDS ORDERED: FOLIC ACID 1 MG TAB PO SCH (12:00)
[2017-01-11] MEDS: SODIUM CHLORIDE 0.9% 1,000 ML IV SCH (12:14)
[2017-01-11 12:16] VITALS: BP 128/61; PULSE 85
--- NOTE | 2017-01-12 08:29 | DS ---
DATE OF ADMISSION: 01/09/2017 DATE OF DISCHARGE: 01/11/2017 FINAL DIAGNOSES: 1. Acute influenza A with respiratory distress as well as acute tracheobronchitis. 2. Increased WBC. 3. Troponin 0.137 possibly, indeterminate. 4. Increased creatinine with chronic kidney disease, stage III. 5. Hypertriglyceridemia. 6. Mild hypoalbuminemia. 7. History of nonischemic cardiomyopathy and biventricular automatic implantable cardioverter defibrillator. 8. History of cerebrovascular accident, transient ischemic attack. 9. Diabetes mellitus type 2. 10. Hypertension. 11. Hyperlipidemia. 12. History of hiatal hernia. 13. History of degenerative joint disease, back surgery. 14. Remote history of nicotine dependence. 15. FULL CODE. DISCHARGE DISPOSITION: The patient will be discharged in stable condition with guarded prognosis. Cardiology cleared the patient for discharge. HISTORY OF PRESENT ILLNESS: This 76-year-old gentleman with a past medical history of multiple medical problems was admitted with fever and weakness and influenza A. The patient was treated with Tamiflu and antibiotics and improved significantly. Troponins were found to be 0.137. Dr. Thacker saw the patient and recommended outpatient follow-up. On exam, vitals are stable. CARDIOVASCULAR SYSTEM: S1, S2 muffled. ABDOMEN: Soft. Nervous system: No focal deficits. Creatinine improved to 1.1 and the patient did not have chest pain at all. The patient is keen on going home. Patient and family keen on going home. The patient will be discharged in stable condition with guarded prognosis with the following advice and medications: 1. Diet is cardiac . 2. Activity limited until follow-up. 3. Follow up with Dr. Rikki Trent in 1 to 2 days. 4. Follow up with cardiology as advised in one week and continued follow-up. 5. Medications are Tylenol 500 mg q.6 p.r.n. 6. Allopurinol 300 mg p.o. daily. 7. Ecotrin 81 mg p.o. daily. 8. Coreg 12.5 mg p.o. b.i.d. 9. Folic acid 1 mg p.o. daily. 10. Humalog 7 to 10 units subcu as before. 11. Levemir 48 to 50 units subcu at bedtime as before. 12. Levaquin 500 mg p.o. daily for 5 days. 13. Cozaar 25 mg p.o. daily. 14. Multivitamins one p.o. daily. 15. Nitrostat 0.4 sublingual p.r.n. 16. Tamiflu 75 milligrams p.o. b.i.d. for 3 more days. 17. Protonix 40 mg daily. 18. Pravastatin 40 mg q.h.s. 19. Torsemide 10 mg daily. 20. Prednisone 20 mg p.o. b.i.d. Consider further evaluation including stress test as an outpatient.
== END 2017-01-11 15:56 | disposition home or self-care (01) | DRG 194 ==
LOC: EC 16:16 → 6SEL 18:57
PROVIDERS: ADMIT Hospitalist; ATTEND Hospitalist
DX: J10.1 Influenza due to other identified influenza virus with other respiratory manifestations (principal); J44.0 Chronic obstructive pulmonary disease with (acute) lower respiratory infection; I42.9 Cardiomyopathy, unspecified; E11.22 Type 2 diabetes mellitus with diabetic chronic kidney disease; E88.09 Other disorders of plasma-protein metabolism, not elsewhere classified; J44.1 Chronic obstructive pulmonary disease with (acute) exacerbation; I49.5 Sick sinus syndrome; N18.3 Chronic kidney disease, stage 3 (moderate); R74.8 Abnormal levels of other serum enzymes; E78.1 Pure hyperglyceridemia; D72.829 Elevated white blood cell count, unspecified; I12.9 Hypertensive chronic kidney disease with stage 1 through stage 4 chronic kidney disease, or unspecified chronic kidney disease; J20.9 Acute bronchitis, unspecified; E78.5 Hyperlipidemia, unspecified; R53.1 Weakness; M19.90 Unspecified osteoarthritis, unspecified site; K57.90 Diverticulosis of intestine, part unspecified, without perforation or abscess without bleeding; K44.9 Diaphragmatic hernia without obstruction or gangrene; Z79.82 Long term (current) use of aspirin; Z79.52 Long term (current) use of systemic steroids; Z95.810 Presence of automatic (implantable) cardiac defibrillator; Z86.73 Personal history of transient ischemic attack (TIA), and cerebral infarction without residual deficits; Z79.4 Long term (current) use of insulin; Z87.01 Personal history of pneumonia (recurrent); Z79.899 Other long term (current) drug therapy; Z88.8 Allergy status to other drugs, medicaments and biological substances; Z88.1 Allergy status to other antibiotic agents; Z91.041 Radiographic dye allergy status; Z88.0 Allergy status to penicillin; Z91.013 Allergy to seafood; Z87.891 Personal history of nicotine dependence
CPT/HCPCS: 36415; 71020; 80048; 80053; 80061; 81001; 82550; 82553; 83036; 83605; 83735; 84100; 84484; 85025; 85049; 85610; 85730; 87040; 87086; 87502; 93005; 93306; 94640; 96361; 96365; 96366; 96375; 96376; 99291

== ENCOUNTER → 2017-02-07 | Outpatient (CLI) | payer MEDICARE, BC ==
--- NOTE | 2017-02-07 10:51 | CT ---
EXAMINATION TYPE: High-resolution CT chest DATE OF EXAM: 02/07/2017 9:38 AM COMPARISON: 11/01/2016 HISTORY: 77-year-old male with cough and pneumonia TECHNIQUE: Contiguous high-resolution axial scanning of the chest without IV contrast. 1 mm slice thi ckness with 1 cm gap was utilized per HRCT protocol. Both supine and prone imaging was performed. CT DLP: 236 mGycm Automated exposure control for dose reduction was used. FINDINGS: There is a left anterior chest wall AICD generator with right atrial, right ventricular, and coronary sinus leads. The heart is upper limits of normal in size without pericardial effusion. Aneurysm of the ascending aorta at 4.4 cm a similar prior with mild atherosclerotic arch calcificatio ns and conventional arch vessel branching anatomy. Scattered nonenlarged mediastinal lymph nodes are demonstrated. Mild diffuse bronchial wall thickening is demonstrated. Focal area of endobronchial plugging involvin g apical segmental right upper lobe branch, axial image 14. There are subpleural reticular opacities with mild associated groundglass densities and minimal bronc hiectasis. No centrilobular nodules, tree-in-bud opacities, thickening of the bronchovascular bundles , shannon honeycombing, or mosaic attenuation. No consolidation or pleural effusion. Visualized upper abdomen shows no gross abnormality. Bones: Endplate spondylosis especially within the mid to lower thoracic spine. IMPRESSION: 1. 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 MINIMAL ASSOCIATED BASILAR BRONCHIECTASIS. NSIP IS IN THE DIFFERENTIAL. NO SHANNON HONEYCOMBING. 2. MILD DIFFUSE BRONCHIAL WALL THICKENING COULD REFLECT BRONCHITIS OR CHRONIC ASTHMA. 3. ANEURYSMAL ASCENDING AORTA (4.4 CM).
== END | disposition home or self-care (01) ==
LOC: RADCTMAIN 09:07
PROVIDERS: ATTEND Internal Medicine
DX: J84.9 Interstitial pulmonary disease, unspecified (principal); J94.8 Other specified pleural conditions; J47.9 Bronchiectasis, uncomplicated; I71.2 Thoracic aortic aneurysm, without rupture; J98.09 Other diseases of bronchus, not elsewhere classified
CPT/HCPCS: 71250

== ENCOUNTER 2017-04-08 06:13 | Day surgery (SDC) | payer MEDICARE, BC ==
[2017-04-05 12:09] VITALS: BMI 27.1
[~2017-04-08 06:13] MED LIST changes: +ALPRAZolam 0.25 MG TAB PO PRN; +ALPRAZolam 0.5 MG TAB PO PRN; +ASPIRIN 325 MG TAB PO STA; +ATORVASTATIN 80 MG TAB PO STA; -CLINDAMYCIN 600 MG in SODIUM CHLORIDE 0.9% IRRIGATIO 250 ML IRRIGATION ONE; -CLINDAMYCIN 900 MG in DEXTROSE 5% IN WATER 50 ML IVPB ONE; +NITROGLYCERIN SL TABS 0.4 MG TAB SUBLINGUAL PRN; -SODIUM CHLORIDE 0.9% 1,000 ML IV SCH; +SODIUM CHLORIDE 0.9% 1,000 ML in EMPTY BAG 1 BAG IV ONE
[2017-04-08 06:59] VITALS: RESP 16; TEMP 98.5
[2017-04-08] MEDS ORDERED: ASPIRIN 81 MG CHEW ONE (07:03)
[2017-04-08 07:08] LABS: Basophils % (A) 0 %; CHCM 34.3; Eosinophils % (A) 0 %; HCT 33.9 % (39.0-53.0); HDW 3.44; HGB 11.5 gm/dL (13.0-17.5); Luc # (Auto) 0.27; Luc % (Auto) 1; Lymphocytes # (A) 3.5 k/uL (1.0-4.8); Lymphocytes % (A) 19 %; MCH 31.7 pg (25.0-35.0); MCHC 33.8 g/dL (31.0-37.0); MCV 93.7 fL (80.0-100.0); Mean Platelet Volume 7.1; Monocytes # (A) 0.7 k/uL (0-1.0); Monocytes % (A) 4 %; Neutrophils # (A) 14.6 k/uL (1.3-7.7); Neutrophils % (A) 76 %; Poikilocytosis Slight; RBC 3.62 m/uL (4.30-5.90); RDW 15.3 % (11.5-15.5); WBC 19.1 k/uL (3.8-10.6); WBC (Perox) 18.15
[2017-04-08 07:11] LABS: Glucose,Whole Blood 222 mg/dL (75-99)
[2017-04-08] MEDS ORDERED: INSULIN LISPRO (humaLOG) 300 UNIT/3 ML VIAL SQ ONE ×2 (07:13→14:14)
[2017-04-08] MEDS ORDERED: MIDAZOLAM 2 MG/2 ML VIAL ONE (07:16)
[2017-04-08 07:28] LABS: Calcium 8.9 mg/dL (8.4-10.2); Potassium 5.2 mmol/L (3.5-5.1)
[2017-04-08] MEDS ORDERED: MIDAZOLAM 2 MG/2 ML VIAL IVP ONE (07:49)
[2017-04-08] MEDS ORDERED: LIDOCAINE 2% INJ 20 MG/ML SQ ONE (07:51)
[2017-04-08] MEDS ORDERED: IODIXANOL 320 MG/ML 100 ML INTRAARTER ONE (08:04)
[2017-04-08] MEDS ORDERED: RX INFO: IV CONTRAST WAS GIVEN 1 EACH MISC MISCELLANE PRN (08:16)
[2017-04-08] MEDS ORDERED: SODIUM CHLORIDE 0.9% 1,000 ML IV SCH (08:30)
[2017-04-08] MEDS: INSULIN LISPRO (humaLOG) 300 UNIT/3 ML VIAL SQ SCH ×3 (09:02→11:51)
[2017-04-08 09:17] LABS: Glucose,Whole Blood 228 mg/dL (75-99)
[2017-04-08 12:58] LABS: Glucose,Whole Blood 324 mg/dL (75-99)
[2017-04-08 14:05] LABS: Glucose,Whole Blood 375 mg/dL (75-99)
[2017-04-08 15:25] LABS: Glucose,Whole Blood 360 mg/dL (75-99)
--- NOTE | 2017-04-08 15:26 | CC ---
DATE OF SERVICE: 01/09/2017 PERFORMING PHYSICIAN: Darien Narvaez MD, House [facility]. PROCEDURE PERFORMED: 1. Selective right and left coronary angiogram. 2. Left heart catheterization. INDICATION: This is a pleasant 77-year-old gentleman who was struggling with exertional dyspnea in spite of multiple noninvasive testing. He was brought today to undergo a heart catheterization. APPROACH: Right common femoral artery. COMPLICATIONS: None. LEVEL OF SEDATION: Moderate with a sedation length of 20 minutes. PROCEDURE DESCRIPTION: After obtaining an informed consent, the patient was brought to the [facility]. The right common femoral artery was cannulated using micropuncture technique. The micropuncture wire passed easily. Then I placed a 6 Iraqi sheath in the right common femoral artery. Subsequently, I did selective the right and left coronary angiogram using JR4 and JL4 catheters. Then I did left heart catheterization using a 6 Iraqi pigtail catheter. The procedure was completed without any complication. SELECTIVE CORONARY ANGIOGRAM: 1. The right coronary artery is a large-caliber vessel and it is a dominant vessel. It is angiographically normal. It bifurcates into PDA and PLV branches; both are angiographically normal. 2. The left main is angiographically normal. It bifurcates into the left circumflex and left anterior descending artery. 3. The left circumflex is a small to medium caliber vessel and it is a nondominant vessel. It is angiographically normal. In the midportion, it gives rise to the first obtuse marginal branch and distally runs in the AV groove as a medium caliber vessel. 4. Left anterior descending artery. The proximal LAD is angiographically normal. It gives rise into the first diagonal branch, which is medium size caliber vessel with mild disease only. The mid LAD and distal LAD are angiographically normal. HEMODYNAMICS: The left ventricle end-diastolic pressure was 12 mmHg and no gradient was identified across the aortic valve. CONCLUSION: 1. Mild nonobstructive coronary artery disease. 2. Normal left ventricular end-diastolic pressure.
[2017-04-08 16:37] VITALS: BP 147/78; PULSE 78
== END 2017-04-08 15:50 | disposition home or self-care (01) ==
LOC: CATHCVL 06:13
PROVIDERS: ATTEND Internal Medicine Interventional Cardiology
DX: I25.10 Atherosclerotic heart disease of native coronary artery without angina pectoris (principal); I10 Essential (primary) hypertension; Z87.891 Personal history of nicotine dependence; E78.2 Mixed hyperlipidemia; E66.3 Overweight; Z68.27 Body mass index [BMI] 27.0-27.9, adult; E11.9 Type 2 diabetes mellitus without complications; Z79.4 Long term (current) use of insulin; Z95.810 Presence of automatic (implantable) cardiac defibrillator; I65.21 Occlusion and stenosis of right carotid artery; I44.2 Atrioventricular block, complete; M06.9 Rheumatoid arthritis, unspecified; M05.10 Rheumatoid lung disease with rheumatoid arthritis of unspecified site; Z79.82 Long term (current) use of aspirin; Z79.899 Other long term (current) drug therapy; Z88.1 Allergy status to other antibiotic agents; Z88.0 Allergy status to penicillin; Z91.09 Other allergy status, other than to drugs and biological substances
CPT/HCPCS: 93458; 80048; 85025; 99152; C1769 ×3; C1894 ×2; J2001; J2250; Q9967

== ENCOUNTER 2017-09-23 16:22 | Inpatient (IN) | payer MEDICARE, BC ==
[2017-09-23] MEDS ORDERED: SODIUM CHLORIDE 0.9% 1,000 ML IV STA (17:20)
[2017-09-23] MEDS ORDERED: IPRATROPIUM-ALBUTEROL 3 ML NEB INHALATION STA (17:20)
--- NOTE | 2017-09-23 17:22 | ED ---
SOB HPI - General Chief Complaint: Shortness of Breath Stated Complaint: Weakness, Poss Pneumonia Time Seen by Provider: 09/23/17 17:15 Source: patient, family, RN notes reviewed Mode of arrival: ambulatory Limitations: no limitations - History of Present Illness Initial Comments: This is a 69-year-old male who was sent over from his doctor's office for possible pneumonia. He had cough with yellow phlegm fever for last 2-3 days. He's been fatigued and sleeping a lot. He is short of breath no chest pain no other symptoms at this time. He denies any history of COPD or emphysema. MD Complaint: shortness of breath, cough - Related Data Home Medications Medication Instructions Recorded Confirmed Allopurinol 300 mg PO DAILY 05/31/16 09/23/17 Aspirin EC [Ecotrin Low Dose] 81 mg PO DAILY 05/31/16 09/23/17 Insulin Detemir [Levemir Flextouch] 30 - 35 units SQ HS 05/31/16 09/23/17 Pantoprazole Sodium 40 mg PO DAILY 05/31/16 09/23/17 Pravastatin Sodium 40 mg PO HS 05/31/16 09/23/17 Carvedilol [Coreg] 12.5 mg PO BID 01/09/17 09/23/17 Losartan [Cozaar] 25 mg PO DAILY 01/09/17 09/23/17 Torsemide 10 mg PO DAILY 01/09/17 09/23/17 Abatacept/Maltose [Orencia] 0 mg IVPB Q30D 04/05/17 09/23/17 hydrALAZINE HCL [Apresoline] 25 mg PO BID 04/05/17 09/23/17 Ascorbic Acid [Vitamin C] 1,000 mg PO DAILY 09/23/17 09/23/17 Cholecalciferol [Vitamin D3] 1,000 unit PO DAILY 09/23/17 09/23/17 Insulin Aspart [NovoLOG Flexpen] 10 units SQ AC-TID 09/23/17 09/23/17 Insulin Aspart [NovoLOG Flexpen] See Protocol SQ AC-TID 09/23/17 09/23/17 Isosorbide Mononitrate ER [Imdur] 30 mg PO DAILY 09/23/17 09/23/17 Orencia(Unknown Dose) 1 dose IVPB Q30D 09/23/17 09/23/17 Vitamin B Complex 1 cap PO DAILY 09/23/17 09/23/17 predniSONE 10 mg PO DAILY 09/23/17 09/23/17 Allergies Allergy/AdvReac Type Severity Reaction Status Date / Time amlodipine Allergy Swelling Verified 09/23/17 17:24 doxycycline Allergy Anaphylaxis Verified 09/23/17 17:24 iodine Allergy Rash/Hives Verified 09/23/17 17:24 metronidazole [From Flagyl] Allergy Rash/Hives Verified 09/23/17 17:24 shrimp Allergy Rash/Hives Verified 09/23/17 17:24 acarbose AdvReac Abdominal Verified 09/23/17 17:24 Pain amoxicillin trihydrate AdvReac Nausea & Verified 09/23/17 17:24 [From Augmentin] Vomiting potassium clavulanate AdvReac Nausea & Verified 09/23/17 17:24 [From Augmentin] Vomiting Review of Systems ROS Statement: Those systems with pertinent positive or pertinent negative responses have been documented in the HPI. ROS Other: All systems not noted in ROS Statement are negative. Past Medical History Past Medical History: CVA/TIA, Diabetes Mellitus, Hyperlipidemia, Hypertension, Musculoskeletal Disorder, Renal Disease, Rheumatoid Arthritis (RA) Additional Past Medical History / Comment(s): Hiatal Hernia. CVA in 2005, RECOVERED. HX GOUT. CMP, HAS BI-V ICD. SHORT OF BREATH EASILY. BRUISES EASILY. History of Any Multi-Drug Resistant Organisms: None Reported Past Surgical History: AICD, Back Surgery, Heart Catheterization, Pacemaker, Tonsillectomy Additional Past Surgical History / Comment(s): Recall on AICD/PACEMAKER, [facility] , HAD GENERATOR CHG 12/20/16. BACK SURG X5. Past Anesthesia/Blood Transfusion Reactions: No Reported Reaction Type of Cardiac Device: Permanent Pacemaker, AICD Device Placement Date:: 2016 Past Psychological History: No Psychological Hx Reported Smoking Status: Former smoker Past Alcohol Use History: None Reported Past Drug Use History: None Reported - Past Family History Mother Family Medical History: No Reported History Father History Unknown: Yes General Exam - General Exam Comments Initial Comments: This is a well-developed well-nourished awake alert oriented 3 male Limitations: no limitations General appearance: alert, in no apparent distress Head exam: Present: atraumatic, normocephalic, normal inspection Eye exam: Present: normal appearance, PERRL, EOMI. Absent: scleral icterus, conjunctival injection, periorbital swelling ENT exam: Present: mucous membranes dry Neck exam: Present: normal inspection. Absent: tenderness, meningismus, lymphadenopathy Respiratory exam: Present: rhonchi (Slight left lower lobe rhonchi), decreased breath sounds. Absent: respiratory distress, wheezes, rales, stridor Cardiovascular Exam: Present: normal rhythm, tachycardia, normal heart sounds. Absent: systolic murmur, diastolic murmur, rubs, gallop, clicks GI/Abdominal exam: Present: soft, normal bowel sounds. Absent: distended, tenderness, guarding, rebound, rigid Extremities exam: Present: normal inspection, full ROM, normal capillary refill. Absent: tenderness, pedal edema, joint swelling, calf tenderness Back exam: Present: normal inspection Neurological exam: Present: alert, oriented X3, CN II-XII intact Psychiatric exam: Present: normal affect, normal mood Skin exam: Present: warm, dry, intact, normal color. Absent: rash Course Vital Signs 09/23/17 09/23/17 09/23/17 16:45 17:08 17:56 Temperature 100.3 F H Pulse Rate 110 H 94 Respiratory 20 18 Rate Blood Pressure 140/60 O2 Sat by Pulse 93 L Oximetry 09/23/17 09/23/17 09/23/17 18:01 18:07 18:50 Temperature Pulse Rate 88 91 105 H Respiratory 18 18 Rate Blood Pressure 152/82 168/73 O2 Sat by Pulse 100 98 Oximetry 09/23/17 18:58 Temperature 99.3 F Pulse Rate 104 H Respiratory 18 Rate Blood Pressure 158/87 O2 Sat by Pulse 97 Oximetry - Reevaluation(s) Reevaluation #1: 09/23/17 19:49 Reevaluation after initial treatment reveals minimal improvement in the patient' s status. Medical Decision Making - Medical Decision Making I did discuss findings with patient family members patient be admitted for IV antibiotics [place] receiving hospital treatment consultation by Dr. Isaac. The elevated troponin is likely secondary to the renal status. - Lab Data Result diagrams: 09/23/17 17:12 09/23/17 17:12 Lab Results 09/23/17 09/23/17 09/23/17 Range/Units 17:12 17:12 17:12 WBC 16.6 H (3.8-10.6) k/uL RBC 4.27 L (4.30-5.90) m/uL Hgb 13.0 (13.0-17.5) gm/dL Hct 40.7 (39.0-53.0) % MCV 95.4 (80.0-100.0) fL MCH 30.4 (25.0-35.0) pg MCHC 31.9 (31.0-37.0) g/dL RDW 14.4 (11.5-15.5) % Plt Count 332 (150-450) k/uL Neutrophils % 76 % Lymphocytes % 16 % Monocytes % 6 % Eosinophils % 0 % Basophils % 0 % Neutrophils # 12.6 H (1.3-7.7) k/uL Lymphocytes # 2.6 (1.0-4.8) k/uL Monocytes # 1.1 H (0-1.0) k/uL Eosinophils # 0.1 (0-0.7) k/uL Basophils # 0.0 (0-0.2) k/uL PT (9.0-12.0) sec INR (<1.2) APTT (22.0-30.0) sec Sodium 133 L (137-145) mmol/L Potassium 5.6 H (3.5-5.1) mmol/L Chloride 101 (98-107) mmol/L Carbon Dioxide 20 L (22-30) mmol/L Anion Gap 12 mmol/L BUN 35 H (9-20) mg/dL Creatinine 1.66 H (0.66-1.25) mg/dL Est GFR (MDRD) Af Amer 49 (>60 ml/min/1.73 sqM) Est GFR (MDRD) Non-Af 40 (>60 ml/min/1.73 sqM) Glucose 293 H (74-99) mg/dL Calcium 8.8 (8.4-10.2) mg/dL Magnesium 1.9 (1.6-2.3) mg/dL Total Bilirubin 0.8 (0.2-1.3) mg/dL AST 20 (17-59) U/L ALT 31 (21-72) U/L Alkaline Phosphatase 59 (38-126) U/L Total Creatine Kinase 39 L (55-170) U/L CK-MB (CK-2) 1.0 (0.0-2.4) ng/mL CK-MB (CK-2) Rel Index 2.6 Troponin I 0.066 H* (0.000-0.034) ng/mL NT-Pro-B Natriuret Pep pg/mL Total Protein 6.3 (6.3-8.2) g/dL Albumin 3.4 L (3.5-5.0) g/dL 09/23/17 09/23/17 Range/Units 17:12 17:12 WBC (3.8-10.6) k/uL RBC (4.30-5.90) m/uL Hgb (13.0-17.5) gm/dL Hct (39.0-53.0) % MCV (80.0-100.0) fL MCH (25.0-35.0) pg MCHC (31.0-37.0) g/dL RDW (11.5-15.5) % Plt Count (150-450) k/uL Neutrophils % % Lymphocytes % % Monocytes % % Eosinophils % % Basophils % % Neutrophils # (1.3-7.7) k/uL Lymphocytes # (1.0-4.8) k/uL Monocytes # (0-1.0) k/uL Eosinophils # (0-0.7) k/uL Basophils # (0-0.2) k/uL PT 9.5 (9.0-12.0) sec INR 0.9 (<1.2) APTT 22.2 (22.0-30.0) sec Sodium (137-145) mmol/L Potassium (3.5-5.1) mmol/L Chloride (98-107) mmol/L Carbon Dioxide (22-30) mmol/L Anion Gap mmol/L BUN (9-20) mg/dL Creatinine (0.66-1.25) mg/dL Est GFR (MDRD) Af Amer (>60 ml/min/1.73 sqM) Est GFR (MDRD) Non-Af (>60 ml/min/1.73 sqM) Glucose (74-99) mg/dL Calcium (8.4-10.2) mg/dL Magnesium (1.6-2.3) mg/dL Total Bilirubin (0.2-1.3) mg/dL AST (17-59) U/L ALT (21-72) U/L Alkaline Phosphatase (38-126) U/L Total Creatine Kinase (55-170) U/L CK-MB (CK-2) (0.0-2.4) ng/mL CK-MB (CK-2) Rel Index Troponin I (0.000-0.034) ng/mL NT-Pro-B Natriuret Pep 605 pg/mL Total Protein (6.3-8.2) g/dL Albumin (3.5-5.0) g/dL - EKG Data -: No EKG Interpreted by Me (It appears be a Bi- ventricular pacemaker) - Radiology Data Radiology results: report reviewed (Imaging does show evidence of a left lower lobe atelectasis infiltrate is considered.), image reviewed Disposition Clinical Impression: Left lower lobe pneumonia, Febrile illness, acute, Bronchospasm, Renal insufficiency, Elevated troponin Disposition: ADMITTED IP TO THIS [facility] Condition: Stable Referrals: Jason Isaac MD [STAFF PHYSICIAN] - 1-2 days
[2017-09-23 18:12] LABS: INR 0.9 (<1.2); Partial Thromboplastin Time 22.2 sec (22.0-30.0); Prothrombin Time 9.5 sec (9.0-12.0)
--- NOTE | 2017-09-23 18:18 | XR ---
EXAMINATION TYPE: XR chest 2V DATE OF EXAM: 09/23/2017 COMPARISON: 01/09/2017 HISTORY: Difficulty breathing with history of pneumonia TECHNIQUE: Frontal and lateral views of the chest are obtained. FINDINGS: Retrocardiac airspace disease is unchanged from the prior and likely relates to left basil ar subsegmental atelectasis. Remaining lungs are well aerated. Cardiac silhouette is again enlarged w ith multilead left-sided cardiac device. No pleural effusion or pneumothorax is seen. Osseous structu res are intact with mild degenerative changes of the thoracic spine. IMPRESSION: Left basilar subsegmental atelectasis with no new focal consolidation.
[2017-09-23 18:21] LABS: Calcium 8.8 mg/dL (8.4-10.2); Magnesium 1.9 mg/dL (1.6-2.3); Potassium 5.6 mmol/L (3.5-5.1); Total Bilirubin 0.8 mg/dL (0.2-1.3); Total Protein 6.3 g/dL (6.3-8.2)
[2017-09-23 18:26] LABS: Basophils % (A) 0 %; CH 30.5; CHCM 32.1; Eosinophils # (A) 0.1 k/uL (0-0.7); Eosinophils % (A) 0 %; HCT 40.7 % (39.0-53.0); HDW 2.37; Luc # (Auto) 0.25; Luc % (Auto) 2; Lymphocytes # (A) 2.6 k/uL (1.0-4.8); Lymphocytes % (A) 16 %; MCH 30.4 pg (25.0-35.0); MCHC 31.9 g/dL (31.0-37.0); MCV 95.4 fL (80.0-100.0); Mean Platelet Volume 8.4; Monocytes # (A) 1.1 k/uL (0-1.0); Monocytes % (A) 6 %; Neutrophils # (A) 12.6 k/uL (1.3-7.7); Neutrophils % (A) 76 %; RBC 4.27 m/uL (4.30-5.90); RDW 14.4 % (11.5-15.5); WBC 16.6 k/uL (3.8-10.6); WBC (Perox) 15.52
[2017-09-23 18:37] LABS: Troponin I 0.066 ng/mL (0.000-0.034)
[2017-09-23] MEDS ORDERED: AZITHROMYCIN 500 MG in SODIUM CHLORIDE 0.9% 250 ML IVPB STA (19:52)
[2017-09-23] MEDS ORDERED: PNEUMONIA PROTOCOL UTILIZED 1 EACH MISC PO PRN (19:52)
[2017-09-23] MEDS ORDERED: IPRATROPIUM-ALBUTEROL 3 ML NEB INHALATION PRN (20:59)
[2017-09-23 21:39] LABS: Glucose,Whole Blood 273 mg/dL (75-99)
[2017-09-23] MEDS: INSULIN LISPRO (humaLOG) 300 UNIT/3 ML VIAL SQ SCH (21:41)
[2017-09-23] MEDS: CARVEDILOL 12.5 MG TAB PO SCH (21:41)
[2017-09-23] MEDS: PRAVASTATIN SODIUM 40 MG TAB PO SCH (21:41)
[2017-09-23] MEDS: hydrALAZINE HCL 25 MG TAB PO SCH (21:41)
[2017-09-23] MEDS: MELATONIN 3 MG TABLET PO PRN (21:41)
[2017-09-23] MEDS: SODIUM CHLORIDE 0.9% 1,000 ML IV SCH (21:45)
[2017-09-24] MEDS ORDERED: IPRATROPIUM-ALBUTEROL 3 ML NEB INHALATION SCH
[2017-09-24] MEDS: methylPREDNISolone SOD SUCCI 125 MG/2 ML VIAL IV SCH ×3 (00:02→12:15)
[2017-09-24] MEDS: INSULIN DETEMIR 100 UNIT/ML 10 ML VIAL SQ SCH ×2 (00:10→20:35)
[2017-09-24] MEDS ORDERED: AZITHROMYCIN 500 MG in SODIUM CHLORIDE 0.9% 250 ML IVPB SCH ×2 (01:00→21:00)
[2017-09-24 02:12] VITALS: BMI 27.9
--- NOTE | 2017-09-24 05:37 | HP ---
HISTORY AND PHYSICAL DATE OF SERVICE: 09/23/2017 CHIEF COMPLAINT: Shortness of breath and cough. HISTORY OF PRESENT ILLNESS: This 77-year-old gentleman with a past medical history of CVA, TIA, diabetes, hypertension, hyperlipidemia, being followed by Dr. Rikki Trent in the outpatient setting was complaining of shortness of breath and cough for the past several days. The patient also had mucopurulent sputum. Because of suspicion of pneumonia, the patient came to [facility] from the doctor's office. The patient was found to have left lower lobe pneumonia, admitted for further evaluation and treatment. There is no history of any rigors or chill. No history of headache, loss of consciousness or seizures. The patient also had a fever for the last 2 to 3 days. PAST MEDICAL HISTORY: Diabetes, hypertension, hyperlipidemia, history of rheumatoid arthritis. MEDICATIONS: Home medications are: 1. Prednisone 10 mg p.o. daily. 2. Apresoline 25 mg p.o. b.i.d. 3. Vitamin B complex 1 p.o. daily. 4. Torsemide 10 mg daily. 5. Pravastatin 40 mg q.h.s. 6. Protonix 40 mg daily. 7. Orencia. 8. Cozaar 25 mg p.o. daily. 9. Imdur 30 mg p.o. daily. 10.Levemir 30 to 35 subcutaneously q.h.s. 11.NovoLog FlexPen t.i.d. and 10 t.i.d. 12.Vitamin D3. 1000 daily. 13.Coreg 12.5 mg b.i.d. 14.Ecotrin 81 mg daily. 15.Vitamin C 1000 mg daily. 16.Allopurinol 300 mg p.o. daily. FAMILY HISTORY: No history of heart disease or strokes in the family. SOCIAL HISTORY: History of alcohol occasional. Previous history of smoking. REVIEW OF SYSTEMS: ENT: Diminished hearing and diminished vision. CARDIOVASCULAR: No angina. RESPIRATORY SYSTEM: As mentioned earlier. GI: No nausea. : No dysuria. NERVOUS SYSTEM: No numbness or weakness. ALLERGY: No history of asthma or hayfever. MUSCULOSKELETAL: As mentioned earlier. HEMATOLOGY: No history of anemia. ENDOCRINE: Diabetes. CONSTITUTIONAL: As mentioned earlier. DERMATOLOGY: Negative. RHEUMATOLOGY: As mentioned earlier. PSYCHIATRY: As mentioned earlier. PHYSICAL EXAM: The patient is alert and oriented x3. Pulse is 111, blood pressure 158/87, respirations 18, temperature 99.3, pulse ox 97% on 2 L. HEENT: Conjunctivae normal. Oral mucosa moist. Neck is no jugular venous distention. No lymph node enlargement. CARDIOVASCULAR: S1, S2 muffled. No S3 or S4. RESPIRATORY: Breath sounds diminished at the bases. Bilateral scattered rhonchi and crackles. Expiratory wheezing also present. ABDOMEN: Soft, nontender. No mass palpable. LEGS: No edema, no swelling. NERVOUS SYSTEM: Higher functions as mentioned earlier. Moves all 4 limbs. No focal motor or sensory deficits. LYMPHATICS: No lymphadenopathy of the neck, axillae or groin. LAB INVESTIGATIONS: WBC 16.6, hemoglobin is 13. Sodium 133, potassium 5.6. Troponin 0.066. The chest x-ray noted left basilar atelectasis. The EKG showed ventricular paced rhythm. ASSESSMENT: 1. Acute left lower lobe pneumonia, possibly community acquired. 2. Mild acute renal failure with hyperkalemia. 3. Diabetes mellitus type 2. 4. Troponin 0.066, indeterminate. 5. History of cerebrovascular accident, transient ischemic attack. 6. Hypertension. 7. Hyperlipidemia. 8. History of rheumatoid arthritis. 9. History of chronic renal disease stage 3. 10.History AICD pacemaker. 11.NO CODE, NO CPR, NO VENT. RECOMMENDATIONS AND DISCUSSION: In this 77-year-old gentleman who presented with multiple complex medical issues , we will monitor the patient closely. Continue the current medications. Continue symptomatic treatment. Will initiate broad-spectrum IV antibiotics. Also recommend pulmonology consultations and also a cardiology consultation for elevated troponin also. Otherwise, I would recommend continued monitoring. Repeat labs. Resume the home medications. Otherwise I would also recommend Accu-Cheks a.c. and at bedtime and continue the Levemir also. Symptomatic treatment will be provided. Otherwise, guarded prognosis because of multiple complex medical issues. Further recommendations to follow. MMODL / IJN: [id number] / PEGGY
[2017-09-24 06:15] LABS: Glucose,Whole Blood 208 mg/dL (75-99)
[2017-09-24 06:36] LABS: Basophils % (A) 0 %; CH 30.4; CHCM 31.9; Eosinophils % (A) 0 %; HCT 35.5 % (39.0-53.0); HDW 2.39; HGB 11.1 gm/dL (13.0-17.5); Luc # (Auto) 0.15; Luc % (Auto) 1; Lymphocytes # (A) 1.8 k/uL (1.0-4.8); Lymphocytes % (A) 16 %; MCHC 31.4 g/dL (31.0-37.0); MCV 95.5 fL (80.0-100.0); Mean Platelet Volume 7.5; Monocytes # (A) 0.4 k/uL (0-1.0); Monocytes % (A) 3 %; Neutrophils # (A) 9.3 k/uL (1.3-7.7); Neutrophils % (A) 79 %; RBC 3.72 m/uL (4.30-5.90); RDW 14.3 % (11.5-15.5); WBC 11.7 k/uL (3.8-10.6); WBC (Perox) 11.86
[2017-09-24] MEDS: INSULIN LISPRO (humaLOG) 300 UNIT/3 ML VIAL SQ SCH ×4 (06:43→20:35)
[2017-09-24] MEDS: CARVEDILOL 12.5 MG TAB PO SCH ×2 (06:43→17:30)
[2017-09-24 06:48] LABS: Calcium 8.5 mg/dL (8.4-10.2); Potassium 5.5 mmol/L (3.5-5.1)
--- NOTE | 2017-09-24 08:25 | XR ---
EXAMINATION TYPE: XR chest 2V DATE OF EXAM: 09/24/2017 COMPARISON: Prior chest x-ray 09/23/2017 HISTORY: Pneumonia TECHNIQUE: Frontal and lateral views of the chest are obtained. FINDINGS: Defibrillator is stable. The patient is rotated. Pulmonary artery is enlarged. Thoracic ao rta is likely enlarged. The heart is stable and enlarged. No pneumothorax or pleural effusion. Inters titium is increased. There are overlying cardiac leads. No evident pneumonia. IMPRESSION: Correlate for pulmonary venous hypertension and interstitial edema, there may be underly ing pulmonary artery hypertension. Thoracic aortic aneurysm. Cardiomegaly.
[2017-09-24] MEDS: IPRATROPIUM-ALBUTEROL 3 ML NEB INHALATION SCH ×4 (08:38→20:57)
[2017-09-24] MEDS: ISOSORBIDE MONONITRATE ER 30 MG TAB.ER.24H PO SCH (09:02)
[2017-09-24] MEDS: ALLOPURINOL 300 MG TAB PO SCH (09:02)
[2017-09-24] MEDS: ASPIRIN 81 MG PO SCH (09:02)
[2017-09-24] MEDS: hydrALAZINE HCL 25 MG TAB PO SCH ×2 (09:02→20:28)
[2017-09-24] MEDS: PANTOPRAZOLE 40 MG TABLET PO SCH (09:03)
[2017-09-24] MEDS: LOSARTAN 25 MG TAB PO SCH (09:03)
[2017-09-24] MEDS: TORSEMIDE 20 MG TAB PO SCH (09:03)
--- NOTE | 2017-09-24 09:34 | P.CRDCN ---
History of Present Illness Consult date: 09/24/17 Chief complaint: Shortness of breath History of present illness: This is a pleasant 77-year-old gentleman with a past medical history significant for hypertension, dyslipidemia, and status post bi-V ICD, was referred from his primary care physician to the hospital because of possible pneumonia. The patient has been struggling with fever and chills at home, cough productive of sputum, and overall worsening in the shortness of breath and not feeling well. He was admitted to the hospital and diagnosed with pneumonia and he was started on antibiotic with ceftriaxone as well as azithromycin. He did not have any anginal chest pain or chest discomfort. The cardiac enzymes were checked with mildly increased troponin. But the patient was tachycardic when he presented to the hospital. And he did not have any symptoms of anginal chest pain or chest discomfort. Please note that the patient underwent a heart catheterization earlier this year and that revealed mild nonobstructive CAD. The last echocardiogram from earlier this year as well revealed normal LV function without any significant valvular abnormalities. Past Medical History Past Medical History: CVA/TIA, Diabetes Mellitus, Hyperlipidemia, Hypertension, Musculoskeletal Disorder, Renal Disease, Rheumatoid Arthritis (RA) Additional Past Medical History / Comment(s): Hiatal Hernia. CVA in 2005, RECOVERED. HX GOUT. CMP, HAS BI-V ICD. SHORT OF BREATH EASILY. BRUISES EASILY. History of Any Multi-Drug Resistant Organisms: None Reported Past Surgical History: AICD, Back Surgery, Heart Catheterization, Pacemaker, Tonsillectomy Additional Past Surgical History / Comment(s): Recall on AICD/PACEMAKER, [facility] , HAD GENERATOR CHG 12/20/16. BACK SURG X5. Past Anesthesia/Blood Transfusion Reactions: No Reported Reaction Type of Cardiac Device: Permanent Pacemaker, AICD Device Placement Date:: 2016 Past Psychological History: No Psychological Hx Reported Smoking Status: Former smoker Past Alcohol Use History: None Reported Additional Past Alcohol Use History / Comment(s): SMOKED 30 YEARS, 2 1/2 PPD, QUIT 1991 EST Past Drug Use History: None Reported - Past Family History Mother Family Medical History: No Reported History Father History Unknown: Yes Medications and Allergies Home Medications Medication Instructions Recorded Confirmed Type Allopurinol 300 mg PO DAILY 05/31/16 09/23/17 History Aspirin EC [Ecotrin Low Dose] 81 mg PO DAILY 05/31/16 09/23/17 History Insulin Detemir [Levemir Flextouch] 30 - 35 units SQ HS 05/31/16 09/23/17 History Pantoprazole Sodium 40 mg PO DAILY 05/31/16 09/23/17 History Pravastatin Sodium 40 mg PO HS 05/31/16 09/23/17 History Carvedilol [Coreg] 12.5 mg PO BID 01/09/17 09/23/17 History Losartan [Cozaar] 25 mg PO DAILY 01/09/17 09/23/17 History Torsemide 10 mg PO DAILY 01/09/17 09/23/17 History Abatacept/Maltose [Orencia] 0 mg IVPB Q30D 04/05/17 09/23/17 History hydrALAZINE HCL [Apresoline] 25 mg PO BID 04/05/17 09/23/17 History Ascorbic Acid [Vitamin C] 1,000 mg PO DAILY 09/23/17 09/23/17 History Cholecalciferol [Vitamin D3] 1,000 unit PO DAILY 09/23/17 09/23/17 History Insulin Aspart [NovoLOG Flexpen] 10 units SQ AC-TID 09/23/17 09/23/17 History Insulin Aspart [NovoLOG Flexpen] See Protocol SQ AC-TID 09/23/17 09/23/17 History Isosorbide Mononitrate ER [Imdur] 30 mg PO DAILY 09/23/17 09/23/17 History Orencia(Unknown Dose) 1 dose IVPB Q30D 09/23/17 09/23/17 History Vitamin B Complex 1 cap PO DAILY 09/23/17 09/23/17 History predniSONE 10 mg PO DAILY 09/23/17 09/23/17 History Allergies Allergy/AdvReac Type Severity Reaction Status Date / Time amlodipine Allergy Swelling Verified 09/23/17 17:24 doxycycline Allergy Anaphylaxis Verified 09/23/17 17:24 iodine Allergy Rash/Hives Verified 09/23/17 17:24 metronidazole [From Flagyl] Allergy Rash/Hives Verified 09/23/17 17:24 shrimp Allergy Rash/Hives Verified 09/23/17 17:24 acarbose AdvReac Abdominal Verified 09/23/17 17:24 Pain amoxicillin trihydrate AdvReac Nausea & Verified 09/23/17 17:24 [From Augmentin] Vomiting potassium clavulanate AdvReac Nausea & Verified 09/23/17 17:24 [From Augmentin] Vomiting Physical Exam Vitals: Vital Signs Temp Pulse Pulse Resp BP BP Pulse Ox 09/24/17 08:50 68 09/24/17 08:38 60 09/24/17 08:00 98.6 F 63 16 134/60 94 L 09/24/17 04:00 97.1 F L 64 20 131/63 95 09/24/17 00:00 99.3 F 76 22 145/65 94 L 09/23/17 21:00 98.9 F 111 H 22 157/70 94 L 09/23/17 18:58 99.3 F 104 H 18 158/87 97 09/23/17 18:50 105 H 18 168/73 98 09/23/17 18:07 91 09/23/17 18:01 88 18 152/82 100 09/23/17 17:56 94 09/23/17 17:08 18 09/23/17 16:45 100.3 F H 110 H 20 140/60 93 L Intake and Output 09/23/17 09/24/17 09/24/17 22:59 06:59 14:59 Intake Total 1100 120 Output Total 725 Balance 1100 -725 120 Intake: IV 1100 Azithromycin 500 mg In 250 Sodium Chloride 0.9% 250 ml @ 125 mls/hr IVPB ONCE STA Rx#:[id number] Sodium Chloride 0.9% 1, 800 000 ml @ 100 mls/hr IV . Q10H STA Rx#:[id number] cefTRIAXone 1,000 mg In 50 Sodium Chloride 0.9% 50 ml @ 100 mls/hr IVPB ONCE STA Rx#:[id number] Oral 120 Output: Urine 725 Other: Voiding Method Urinal # Voids 1 Weight 93.44 kg 91.5 kg - Constitutional General appearance: no acute distress - Respiratory Respiratory: bilateral: rhonchi - Cardiovascular Rhythm: regular Heart sounds: normal: S1, S2 Results 09/24/17 05:45 09/24/17 05:45 Cardiac Enzymes 09/23/17 09/23/17 Range/Units 17:12 17:12 AST 20 (17-59) U/L CK-MB (CK-2) 1.0 (0.0-2.4) ng/mL Troponin I 0.066 H* (0.000-0.034) ng/mL Coagulation 09/23/17 Range/Units 17:12 PT 9.5 (9.0-12.0) sec APTT 22.2 (22.0-30.0) sec CBC 09/23/17 09/24/17 Range/Units 17:12 05:45 WBC 16.6 H 11.7 H (3.8-10.6) k/uL RBC 4.27 L 3.72 L (4.30-5.90) m/uL Hgb 13.0 11.1 L (13.0-17.5) gm/dL Hct 40.7 35.5 L (39.0-53.0) % Plt Count 332 260 (150-450) k/uL Comprehensive Metabolic Panel 09/23/17 09/24/17 Range/Units 17:12 05:45 Sodium 133 L 136 L (137-145) mmol/L Potassium 5.6 H 5.5 H (3.5-5.1) mmol/L Chloride 101 106 (98-107) mmol/L Carbon Dioxide 20 L 20 L (22-30) mmol/L BUN 35 H 38 H (9-20) mg/dL Creatinine 1.66 H 1.57 H (0.66-1.25) mg/dL Glucose 293 H 230 H (74-99) mg/dL Calcium 8.8 8.5 (8.4-10.2) mg/dL AST 20 (17-59) U/L ALT 31 (21-72) U/L Alkaline Phosphatase 59 (38-126) U/L Total Protein 6.3 (6.3-8.2) g/dL Albumin 3.4 L (3.5-5.0) g/dL Current Medications Generic Name Dose Route Start Last Admin Trade Name Freq PRN Reason Stop Dose Admin Albuterol/Ipratropium 3 ml 09/24/17 08:00 09/24/17 08:38 Duoneb 0.5 Mg-3 Mg/3 Ml Soln INHALATION 3 ml RT-QID PATTI Administration Albuterol/Ipratropium 3 ml 09/23/17 20:59 Duoneb 0.5 Mg-3 Mg/3 Ml Soln INHALATION RT-Q2H PRN Shortness Of Breath Or Wheezing Allopurinol 300 mg 09/24/17 09:00 09/24/17 09:02 Zyloprim PO 300 mg DAILY PATTI Administration Ascorbic Acid 1,000 mg 09/24/17 12:00 Vitamin C PO DAILY@1200 [facility] Aspirin 81 mg 09/24/17 09:00 09/24/17 09:02 Aspirin PO 81 mg DAILY PATTI Administration Carvedilol 12.5 mg 09/23/17 21:00 09/24/17 06:43 Coreg PO 12.5 mg BID-W/MEALS PATTI Administration Cholecalciferol 1,000 unit 09/24/17 12:00 Vitamin D3 PO DAILY@1200 PATTI Hydralazine HCl 25 mg 09/23/17 21:00 09/24/17 09:02 Apresoline PO 25 mg BID PATTI Administration Ceftriaxone Sodium 1,000 mg/ 50 mls @ 100 mls/hr 09/24/17 18:00 Sodium Chloride IVPB 09/27/17 18:01 Q24H PATTI Sodium Chloride 1,000 mls @ 20 mls/hr 09/23/17 20:00 09/23/17 21:45 Saline 0.9% IV 20 mls/hr .Q24H PATTI Administration Azithromycin 500 mg/ Sodium 250 mls @ 125 mls/hr 09/24/17 21:00 Chloride IVPB HS PATTI Insulin Detemir 35 unit 09/23/17 23:45 09/24/17 00:10 Levemir SQ 35 unit HS PATTI Administration Insulin Human Lispro 0 unit 09/23/17 21:00 09/24/17 06:43 Humalog SQ 3 unit ACHS PATTI Administration Protocol Isosorbide Mononitrate 30 mg 09/24/17 09:00 09/24/17 09:02 Imdur PO 30 mg DAILY PATTI Administration Losartan Potassium 25 mg 09/24/17 09:00 09/24/17 09:03 Cozaar PO 25 mg DAILY PATTI Administration Melatonin 6 mg 09/23/17 20:59 09/23/17 21:41 Melatonin PO 6 mg HS PRN Administration Insomnia Methylprednisolone Sodium Succinate 60 mg 09/24/17 00:00 09/24/17 06:43 Solu-Medrol IV 60 mg Q6HR PATTI Administration Miscellaneous Information 1 each 09/23/17 19:52 Pneumonia Protocol Utilized PO ONCE PRN Per Protocol Pantoprazole Sodium 40 mg 09/24/17 09:00 09/24/17 09:03 Protonix PO 40 mg DAILY PATTI Administration Pravastatin Sodium 40 mg 09/23/17 21:00 09/23/17 21:41 Pravachol PO 40 mg HS PATTI Administration Torsemide 10 mg 09/24/17 09:00 09/24/17 09:03 Demadex PO 10 mg DAILY PATTI Administration Vitamin B Complex/Vit C/Vit E/Zinc 1 each 09/24/17 12:00 Z-Bec PO DAILY@1200 PATTI Intake and Output 09/23/17 09/24/17 09/24/17 22:59 06:59 14:59 Intake Total 1100 120 Output Total 725 Balance 1100 -725 120 Intake: IV 1100 Azithromycin 500 mg In 250 Sodium Chloride 0.9% 250 ml @ 125 mls/hr IVPB ONCE STA Rx#:[id number] Sodium Chloride 0.9% 1, 800 000 ml @ 100 mls/hr IV . Q10H STA Rx#:[id number] cefTRIAXone 1,000 mg In 50 Sodium Chloride 0.9% 50 ml @ 100 mls/hr IVPB ONCE STA Rx#:[id number] Oral 120 Output: Urine 725 Other: Voiding Method Urinal # Voids 1 Weight 93.44 kg 91.5 kg 09/24/17 05:45 09/24/17 05:45 Assessment and Plan Assessment: This is a pleasant 77-year-old gentleman with known hypertension, dyslipidemia, and status post by the ICD was admitted to the hospital was cough productive of sputum associated with fever and chills and he was diagnosed with pneumonia and was started on antibiotic. I am not concerned about the mildly increased troponin which is likely secondary to the tachycardia when he presented to the hospital. The patient underwent a heart catheterization earlier this year and that revealed normal coronaries. From the cardiovascular standpoint of view, I recommended no further cardiac workup and we'll continue following up with him.
[2017-09-24 11:47] LABS: Glucose,Whole Blood 373 mg/dL (75-99)
--- NOTE | 2017-09-24 11:53 | P.CNPUL ---
History of Present Illness Consult date: 09/24/17 Reason for consult: dyspnea History of present illness: A 77-year-old male patient with known history of mild COPD followed up by Dr. Mayo on outpatient basis. The patient came in to the burst department yesterday feeling fatigued and same time was having increased cough and chest congestion and wheezing. Based on this, the patient had a chest x-ray and a pneumonia was suspected and the left lower lobe. The patient was started on broad-spectrum antibiotics including accommodation Rocephin and Zithromax. The patient was started on IV Solu-Medrol and he was admitted to the hospital. Chest x-ray shows also cardiomegaly and some mild pulmonary vascular congestion. The patient had limited troponin elevation of 0.06, however we are aware that the patient's cardiac catheterization from 04/08/2017 showed nonocclusive disease and this was done by Dr. Harris. The patient also has had an echocardiogram from 01/10/2017 that showed a preserved left ventricular systolic function with an ejection fraction of 55-60%. No significant valvular abnormalities noted. The patient however has right ventricular systolic pressure of around 40 mmHg and there may be a mild component of pulmonary hypertension. Clinically the patient is doing better. His white cell count has dropped from 16 down to 11. He is hemodynamically stable. He has a component of chronic renal failure with a creatinine of 1.57 and his potassium level is at 5.5. No EKG changes along with this hyperkalemia. ProBNP level is not elevated at 605. Influenza screen was negative. Currently is afebrile. Pulse ox on room air is around 94%. He has a biventricular AICD that was inserted many years back for history of ischemic artery myopathy. Review of Systems Constitutional: Reports fatigue, Reports poor appetite Eyes: denies blurred vision, denies bulging eye, denies decreased vision Ears: deny: ear discharge, earache, tinnitus Ears, nose, mouth and throat: Reports as per HPI Cardiovascular: Reports dyspnea on exertion, Reports shortness of breath Respiratory: Reports congestion, Reports cough, Reports dyspnea, Reports respiratory infections, Reports wheezing Gastrointestinal: Denies abdominal pain, Denies diarrhea, Denies nausea, Denies vomiting Musculoskeletal: Denies myalgias Musculoskeletal: absent: ankle stiffness, ankle swelling, as per HPI Integumentary: Denies pruritus, Denies rash Neurological: Denies numbness, Denies weakness Psychiatric: Denies anxiety, Denies depression Endocrine: Denies fatigue, Denies weight change Past Medical History Past Medical History: CVA/TIA, Diabetes Mellitus, Hyperlipidemia, Hypertension, Musculoskeletal Disorder, Renal Disease, Rheumatoid Arthritis (RA) Additional Past Medical History / Comment(s): Nonocclusive CAD base and a cardiac catheterization from 2016, chronic renal failure, chronic hyperkalemia, diabetes mellitus, hypertension, hyperlipidemia, rheumatoid arthritis maintained on a combination of methotrexate and prednisone outpatient basis, degenerative arthritis, gout, 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, CVA in 2005, hiatal hernia History of Any Multi-Drug Resistant Organisms: None Reported Past Surgical History: AICD, Back Surgery, Heart Catheterization, Pacemaker, Tonsillectomy Additional Past Surgical History / Comment(s): Biventricular AICD placement, back surgery 5, cardiac catheterization, tonsillectomy Past Anesthesia/Blood Transfusion Reactions: No Reported Reaction Type of Cardiac Device: Permanent Pacemaker, AICD Device Placement Date:: 2016 Past Psychological History: No Psychological Hx Reported Smoking Status: Former smoker Past Alcohol Use History: None Reported Additional Past Alcohol Use History / Comment(s): SMOKED 30 YEARS, 2 1/2 PPD, QUIT 1991 EST Past Drug Use History: None Reported - Past Family History Mother Family Medical History: No Reported History Father History Unknown: Yes Medications and Allergies Home Medications Medication Instructions Recorded Confirmed Type Allopurinol 300 mg PO DAILY 05/31/16 09/23/17 History Aspirin EC [Ecotrin Low Dose] 81 mg PO DAILY 05/31/16 09/23/17 History Insulin Detemir [Levemir Flextouch] 30 - 35 units SQ HS 05/31/16 09/23/17 History Pantoprazole Sodium 40 mg PO DAILY 05/31/16 09/23/17 History Pravastatin Sodium 40 mg PO HS 05/31/16 09/23/17 History Carvedilol [Coreg] 12.5 mg PO BID 01/09/17 09/23/17 History Losartan [Cozaar] 25 mg PO DAILY 01/09/17 09/23/17 History Torsemide 10 mg PO DAILY 01/09/17 09/23/17 History Abatacept/Maltose [Orencia] 0 mg IVPB Q30D 04/05/17 09/23/17 History hydrALAZINE HCL [Apresoline] 25 mg PO BID 04/05/17 09/23/17 History Ascorbic Acid [Vitamin C] 1,000 mg PO DAILY 09/23/17 09/23/17 History Cholecalciferol [Vitamin D3] 1,000 unit PO DAILY 09/23/17 09/23/17 History Insulin Aspart [NovoLOG Flexpen] 10 units SQ AC-TID 09/23/17 09/23/17 History Insulin Aspart [NovoLOG Flexpen] See Protocol SQ AC-TID 09/23/17 09/23/17 History Isosorbide Mononitrate ER [Imdur] 30 mg PO DAILY 09/23/17 09/23/17 History Orencia(Unknown Dose) 1 dose IVPB Q30D 09/23/17 09/23/17 History Vitamin B Complex 1 cap PO DAILY 09/23/17 09/23/17 History predniSONE 10 mg PO DAILY 09/23/17 09/23/17 History Allergies Allergy/AdvReac Type Severity Reaction Status Date / Time amlodipine Allergy Swelling Verified 09/23/17 17:24 doxycycline Allergy Anaphylaxis Verified 09/23/17 17:24 iodine Allergy Rash/Hives Verified 09/23/17 17:24 metronidazole [From Flagyl] Allergy Rash/Hives Verified 09/23/17 17:24 shrimp Allergy Rash/Hives Verified 09/23/17 17:24 acarbose AdvReac Abdominal Verified 09/23/17 17:24 Pain amoxicillin trihydrate AdvReac Nausea & Verified 09/23/17 17:24 [From Augmentin] Vomiting potassium clavulanate AdvReac Nausea & Verified 09/23/17 17:24 [From Augmentin] Vomiting Physical Exam Vitals: Vital Signs Temp Pulse Pulse Resp BP BP Pulse Ox 09/24/17 08:50 68 09/24/17 08:38 60 09/24/17 08:00 98.6 F 63 16 134/60 94 L 09/24/17 04:00 97.1 F L 64 20 131/63 95 09/24/17 00:00 99.3 F 76 22 145/65 94 L 09/23/17 21:00 98.9 F 111 H 22 157/70 94 L 09/23/17 18:58 99.3 F 104 H 18 158/87 97 09/23/17 18:50 105 H 18 168/73 98 09/23/17 18:07 91 09/23/17 18:01 88 18 152/82 100 09/23/17 17:56 94 09/23/17 17:08 18 09/23/17 16:45 100.3 F H 110 H 20 140/60 93 L Intake and Output 09/23/17 09/24/17 09/24/17 22:59 06:59 14:59 Intake Total 1100 120 Output Total 725 Balance 1100 -725 120 Intake: IV 1100 Azithromycin 500 mg In 250 Sodium Chloride 0.9% 250 ml @ 125 mls/hr IVPB ONCE STA Rx#:[id number] Sodium Chloride 0.9% 1, 800 000 ml @ 100 mls/hr IV . Q10H STA Rx#:[id number] cefTRIAXone 1,000 mg In 50 Sodium Chloride 0.9% 50 ml @ 100 mls/hr IVPB ONCE STA Rx#:[id number] Oral 120 Output: Urine 725 Other: Voiding Method Urinal # Voids 1 Weight 93.44 kg 91.5 kg Gen. appearance the patient is calm and comfortable. He is on acute respiratory distress. Head exam was generally normal. There was no scleral icterus or corneal arcus. Mucous membranes were moist.Neck was supple and without jugular venous distension, thyromegaly, or carotid bruits. Carotids were easily palpable bilaterally. There was no adenopathy. Lung sounds are diminished in lung with that there is some few scattered expiratory wheezes.Cardiac exam revealed the PMI to be normally situated and sized. The rhythm was regular and no extrasystoles were noted during several minutes of auscultation. The first and second heart sounds were normal and physiologic splitting of the second heart sound was noted. There were no murmurs, rubs, clicks, or gallops. The patient has an AICD generator over the left anterior chest area. The incision site and the pocket is clean.Abdominal exam revealed normal bowel sounds. The abdomen was soft, non-tender, and without masses, organomegaly, or appreciable enlargement of the abdominal aorta.Examination of the extremities revealed easily palpable radial, femoral and pedal pulses. There was no cyanosis, clubbing or edema.Examination of the skin revealed no evidence of significant rashes, suspicious appearing nevi or other concerning lesions. Neurologically the patient is awake and alert and there is no focal neurological deficit this point Results - Laboratory Findings CBC and BMP: 09/24/17 05:45 09/24/17 05:45 PT/INR, D-dimer PT 9.5 sec (9.0-12.0) 09/23/17 17:12 INR 0.9 (<1.2) 09/23/17 17:12 Abnormal lab findings: Abnormal Labs 09/23/17 09/23/17 09/23/17 17:12 17:12 17:12 WBC 16.6 H RBC 4.27 L Hgb Hct Neutrophils # 12.6 H Monocytes # 1.1 H Sodium 133 L Potassium 5.6 H Carbon Dioxide 20 L BUN 35 H Creatinine 1.66 H Glucose 293 H POC Glucose (mg/dL) Total Creatine Kinase 39 L Troponin I 0.066 H* Albumin 3.4 L 09/23/17 09/24/17 09/24/17 21:37 05:45 05:45 WBC 11.7 H RBC 3.72 L Hgb 11.1 L Hct 35.5 L Neutrophils # 9.3 H Monocytes # Sodium 136 L Potassium 5.5 H Carbon Dioxide 20 L BUN 38 H Creatinine 1.57 H Glucose 230 H POC Glucose (mg/dL) 273 H Total Creatine Kinase Troponin I Albumin 09/24/17 06:12 WBC RBC Hgb Hct Neutrophils # Monocytes # Sodium Potassium Carbon Dioxide BUN Creatinine Glucose POC Glucose (mg/dL) 208 H Total Creatine Kinase Troponin I Albumin - Diagnostic Findings Chest x-ray: image reviewed Assessment and Plan Plan: Assessment 1 acute bronchitis with suspicious left lower lobe pneumonia with secondary shortness of breath 2 nonocclusive coronary artery disease, baseline cardiac Position from 2017 3 chronic renal failure, chronic, stage III 4 chronic hyperkalemia rule out renal tubular acidosis secondary to diabetes mellitus 5 diabetes mellitus 6 hypertension 7 hyperlipidemia 8 gout 9 rheumatoid arthritis treated with a combination of methotrexate and prednisone in the past and currently the patient is taking Orencia and prednisone. As such she is at an increased risk of developing recurrent respiratory tract infections/pneumonia is in the future. 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 He may have an underlying COPD at background. He is having recurrent respiratory tract infection based on chronic immunosuppression related to methotrexate, Orencia and prednisone. For now he has symptoms of an acute bronchitis. May be a limited left lower lobe pneumonia. The patient would benefit from a combination of Rocephin and Zithromax and a prednisone burst taper at a time of discharge. Clinically warranted improved. White cell count is dropped down to 11. No signs of any decompensated heart failure. No signs of septicemia. Chest x-ray was reviewed. We'll continue to follow. Pulse ox is above 90% on room air. We will need a nephrology follow-up on outpatient basis regarding the chronic renal failure and hyperkalemia. Possible renal tubal acidosis.
[2017-09-24] MEDS: ASCORBIC ACID 500 MG TAB PO SCH (12:15)
[2017-09-24] MEDS: CHOLECALCIFEROL 1,000 UNIT TAB PO SCH (12:15)
[2017-09-24] MEDS: B COMPLEX-VIT C-VIT E-ZINC 1 EACH TAB PO SCH (12:15)
[2017-09-24] MEDS ORDERED: SODIUM POLYSTYRENE SULFONATE 15 GM/60 ML BOTTLE PO STA (13:36)
--- NOTE | 2017-09-24 14:23 | PN ---
PROGRESS NOTE DATE OF SERVICE: 09/24/2017 This is 77-year-old gentleman admitted with acute left lower lobe pneumonia, also had acute renal failure, hyperkalemia. The patient will be closely monitored. Patient is on broad-spectrum IV antibiotics. Pulmonary, Dr. Campbell is following the patient closely. Repeat chest x-ray has been noted. PAST MEDICAL HISTORY: Reviewed. REVIEW OF SYSTEMS: CARDIOVASCULAR: No angina or palpitation. RESPIRATION: As mentioned earlier. GI: As mentioned earlier. : As mentioned earlier. NERVOUS SYSTEM: No numbness or weakness. CURRENT MEDICATIONS: Reviews and include: 1. DuoNeb q.i.d. and p.r.n. 2. Zyloprim 300 mg daily. 3. Vitamin C 1000 mg p.o. daily. 4. Aspirin 81 mg p.o. daily. 5. Zithromax 250 mg IV daily. 6. Coreg 12.5 b.i.d. 7. Rocephin 1 g IV daily. 8. Vitamin D3. 9. Apresoline 25 mg p.o. b.i.d. 10.Levemir 35 units subcu b.i.d. and 35 units subcu q.h.s. 11.Humalog scale. 12.Imdur 30 mg. 13.Cozaar. 14.Melatonin. 15.Solu-Medrol 60 IV q.6. 16.Protonix. 17.Demadex. 18.Vitamin B complex. PHYSICAL EXAMINATION: Patient is alert and oriented x3. Pulse is 58, blood pressure 130/65, respirations 16, temperature 97.7, pulse ox 96% on room air. HEENT: Normal, oral mucosa moist. Neck is no jugular venous distention. No carotid bruit, no lymph node enlargement. CARDIOVASCULAR SYSTEM: S1, S2, no S3, no S4. RESPIRATORY: Breath sounds diminished at the bases. Bilateral scattered rhonchi, no crackles. ABDOMEN: Soft, nontender. No mass palpable. LEGS: No edema, no swelling. NERVOUS SYSTEM: No focal deficits. Labs are WBC 11.2, hemoglobin is 7.1, sodium 136, potassium 5.5. ASSESSMENT: 1. Acute left lower lobe pneumonia or bronchopneumonia, possibly community-acquired, present on admission. 2. Mild acute renal failure with hyperkalemia. 3. Diabetes mellitus type 2. 4. Troponin 0.066, indeterminate. 5. History of cerebrovascular accident/transient ischemic attack. 6. Hypertension. 7. Hyperlipidemia. 8. History of rheumatoid arthritis. 9. Chronic kidney disease stage 3. 10.History of AICD pacemaker. RECOMMENDATION AND DISCUSSION: Recommend to continue current medications, continue with the monitoring and symptomatic treatment. Dr. Campbell's input appreciated. Otherwise, continue with the antibiotics empirically. Taper the steroids. Otherwise, would also recommend Kayexalate 1 dose at this time and repeat lytes tomorrow. Otherwise, prognosis guarded because of multiple complex medical issues. Further recommendations to follow. See orders for further details. Discussed with the patient and family who understand. MMODL / IJN: [id number] /
[2017-09-24 16:30] LABS: Glucose,Whole Blood 344 mg/dL (75-99)
[2017-09-24] MEDS: methylPREDNISolone SOD SUCCI 40 MG/ML 1 ML VIAL IV SCH ×2 (17:30→23:27)
[2017-09-24] MEDS ORDERED: AZITHROMYCIN 500 MG TAB PO SCH (18:00)
[2017-09-24] MEDS: SODIUM CHLORIDE 0.9% 1,000 ML IV SCH (20:29)
[2017-09-24] MEDS: PRAVASTATIN SODIUM 40 MG TAB PO SCH (20:29)
[2017-09-24 20:39] LABS: Glucose,Whole Blood 384 mg/dL (75-99)
[2017-09-24] MEDS: MELATONIN 3 MG TABLET PO PRN (22:04)
[2017-09-24 23:21] VITALS: RESP 20
[2017-09-25 08:00] LABS: Glucose,Whole Blood 271 mg/dL (75-99)
[2017-09-25] MEDS: IPRATROPIUM-ALBUTEROL 3 ML NEB INHALATION SCH ×2 (08:08→11:47)
[2017-09-25] MEDS: INSULIN LISPRO (humaLOG) 300 UNIT/3 ML VIAL SQ SCH ×2 (08:13→13:19)
[2017-09-25] MEDS: ASPIRIN 81 MG PO SCH (08:14)
[2017-09-25] MEDS: ALLOPURINOL 300 MG TAB PO SCH (08:14)
[2017-09-25] MEDS: CARVEDILOL 12.5 MG TAB PO SCH (08:14)
[2017-09-25] MEDS: methylPREDNISolone SOD SUCCI 40 MG/ML 1 ML VIAL IV SCH (08:14)
[2017-09-25] MEDS: hydrALAZINE HCL 25 MG TAB PO SCH (08:15)
[2017-09-25] MEDS: PANTOPRAZOLE 40 MG TABLET PO SCH (08:15)
[2017-09-25] MEDS: LOSARTAN 25 MG TAB PO SCH (08:15)
[2017-09-25] MEDS: ISOSORBIDE MONONITRATE ER 30 MG TAB.ER.24H PO SCH (08:15)
[2017-09-25] MEDS: TORSEMIDE 20 MG TAB PO SCH (08:15)
[2017-09-25 08:24] VITALS: BP 137/59; PULSE 68; TEMP 97.7
[2017-09-25 08:28] LABS: Basophils % (A) 0 %; CH 30.5; CHCM 32.6; Eosinophils % (A) 0 %; HCT 32.5 % (39.0-53.0); HDW 2.45; HGB 10.4 gm/dL (13.0-17.5); Luc % (Auto) 1; Lymphocytes # (A) 2.3 k/uL (1.0-4.8); Lymphocytes % (A) 14 %; MCH 30.2 pg (25.0-35.0); MCV 94.2 fL (80.0-100.0); Mean Platelet Volume 7.9; Monocytes # (A) 0.7 k/uL (0-1.0); Monocytes % (A) 4 %; Neutrophils # (A) 13.1 k/uL (1.3-7.7); Neutrophils % (A) 80 %; RBC 3.45 m/uL (4.30-5.90); RDW 14.2 % (11.5-15.5); WBC 16.3 k/uL (3.8-10.6); WBC (Perox) 16.68
[2017-09-25 08:48] LABS: Calcium 8.6 mg/dL (8.4-10.2); Potassium 4.6 mmol/L (3.5-5.1)
--- NOTE | 2017-09-25 10:42 | P.PN ---
<Elissa Arboleda M - Last Filed: 09/25/17 10:35> Subjective Progress Note Date: 09/25/17 Principal diagnosis: Acute bronchitis, suspicious left lower lobe pneumonia, shortness of breath A 77-year-old male patient with known history of mild COPD followed up by Dr. Mayo on outpatient basis. The patient came in to the burst department yesterday feeling fatigued and same time was having increased cough and chest congestion and wheezing. Based on this, the patient had a chest x-ray and a pneumonia was suspected and the left lower lobe. The patient was started on broad-spectrum antibiotics including accommodation Rocephin and Zithromax. The patient was started on IV Solu-Medrol and he was admitted to the hospital. Chest x-ray shows also cardiomegaly and some mild pulmonary vascular congestion. The patient had limited troponin elevation of 0.06, however we are aware that the patient's cardiac catheterization from 04/08/2017 showed nonocclusive disease and this was done by Dr. Harris. The patient also has had an echocardiogram from 01/10/2017 that showed a preserved left ventricular systolic function with an ejection fraction of 55-60%. No significant valvular abnormalities noted. The patient however has right ventricular systolic pressure of around 40 mmHg and there may be a mild component of pulmonary hypertension. Clinically the patient is doing better. His white cell count has dropped from 16 down to 11. He is hemodynamically stable. He has a component of chronic renal failure with a creatinine of 1.57 and his potassium level is at 5.5. No EKG changes along with this hyperkalemia. ProBNP level is not elevated at 605. Influenza screen was negative. Currently is afebrile. Pulse ox on room air is around 94%. He has a biventricular AICD that was inserted many years back for history of ischemic artery myopathy. On 09/25/2017 patient is seen in follow-up on the medical surgical floor. He is resting in bed comfortably, in no acute distress. He states his breathing is much improved, no significant chest congestion or wheezing noted. He has a productive cough with small amount of white and yellow sputum. He has been afebrile, no significant events overnight, on room air with set at 96%. Lung sounds equal air entry bilaterally with a few scattered rales over posterior bases. No episodes of chest pain, hemoptysis, orthopnea. Objective - Vital Signs Vital signs: Vital Signs Temp 97.7 F 09/25/17 07:00 Pulse 66 09/25/17 08:19 Resp 20 09/25/17 07:00 BP 137/59 09/25/17 07:00 Pulse Ox 94 L 09/25/17 07:00 Intake & Output 09/24/17 09/25/17 09/25/17 18:59 06:59 18:59 Intake Total 360 1200 480 Balance 360 1200 480 Weight 92 kg Intake: Oral 360 1200 480 Other: Voiding Method Urinal # Voids 1 2 - Exam GENERAL EXAM: Alert, active, comfortable in no apparent distress. HEAD: Normocephalic/atraumatic. EYES: Normal reaction of pupils, equal size. Conjunctiva pink, sclera white. NOSE: Clear with pink turbinates. THROAT: No erythema or exudates. NECK: No masses, no JVD, no thyroid enlargement, no adenopathy. CHEST: No chest wall deformity. Symmetrical expansion. LUNGS: Equal air entry with few scattered bibasilar crackles, but no wheezes, rhonchi or dullness. CVS: Regular rate and rhythm, normal S1 and S2, no gallops, no murmurs, no rubs ABDOMEN: Soft, nontender. No hepatosplenomegaly, normal bowel sounds, no guarding or rigidity. EXTREMITIES: No clubbing, no edema, no cyanosis, 2+ pulses and upper and lower extremities. MUSCULOSKELETAL: Muscle strength and tone normal. SPINE: No scoliosis or deformity SKIN: No rashes CENTRAL NERVOUS SYSTEM: Alert and oriented 3. No focal deficits, tone is normal in all 4 extremities. PSYCHIATRIC: Alert and oriented 3. Appropriate affect. Intact judgment and insight. - Labs CBC & Chem 7: 09/25/17 07:31 09/25/17 07:31 Labs: Abnormal Lab Results - Last 24 Hours (Table) 09/24/17 09/24/17 09/24/17 Range/Units 11:39 16:28 20:30 WBC (3.8-10.6) k/uL RBC (4.30-5.90) m/uL Hgb (13.0-17.5) gm/dL Hct (39.0-53.0) % Neutrophils # (1.3-7.7) k/uL Sodium (137-145) mmol/L Carbon Dioxide (22-30) mmol/L BUN (9-20) mg/dL Creatinine (0.66-1.25) mg/dL Glucose (74-99) mg/dL POC Glucose (mg/dL) 373 H 344 H 384 H (75-99) mg/dL 09/25/17 09/25/17 09/25/17 Range/Units 07:00 07:31 07:31 WBC 16.3 H (3.8-10.6) k/uL RBC 3.45 L (4.30-5.90) m/uL Hgb 10.4 L (13.0-17.5) gm/dL Hct 32.5 L (39.0-53.0) % Neutrophils # 13.1 H (1.3-7.7) k/uL Sodium 135 L (137-145) mmol/L Carbon Dioxide 18 L (22-30) mmol/L BUN 56 H (9-20) mg/dL Creatinine 1.51 H (0.66-1.25) mg/dL Glucose 246 H (74-99) mg/dL POC Glucose (mg/dL) 271 H (75-99) mg/dL Microbiology - Last 24 Hours (Table) 09/24/17 17:15 Gram Stain - Preliminary Sputum 09/23/17 17:12 Blood Culture - Preliminary Blood No Growth after 24 hours Assessment and Plan Plan: Assessment and Plan Plan: Assessment 1 acute bronchitis with suspicious left lower lobe pneumonia with secondary shortness of breath 2 nonocclusive coronary artery disease, baseline cardiac catheterization from 2017 3 chronic renal failure, chronic, stage III 4 chronic hyperkalemia rule out renal tubular acidosis secondary to diabetes mellitus, resolved, serum potassium is 4.6 today 5 diabetes mellitus 6 hypertension 7 hyperlipidemia 8 gout 9 rheumatoid arthritis treated with a combination of methotrexate and prednisone in the past and currently the patient is taking Orencia and prednisone. As such she is at an increased risk of developing recurrent respiratory tract infections/pneumonia is in the future. 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 Denies any dyspnea, chest congestion, wheezing or hemoptysis. He may have an underlying COPD at background. He is having recurrent respiratory tract infection based on chronic immunosuppression related to methotrexate, Orencia and prednisone. For now he has symptoms of an acute bronchitis. May be a limited left lower lobe pneumonia. The patient would benefit from a combination of Rocephin and Zithromax and a prednisone burst taper at a time of discharge. Clinically improved. White cell count is up to 16.3 which may be related to IV steroids. No signs of any decompensated heart failure. No signs of septicemia. Chest x-ray was reviewed. We'll continue to follow. Pulse ox is above 90% on room air. We will need a nephrology follow-up on outpatient basis regarding the chronic renal failure and hyperkalemia. Possible renal tubal acidosis. I performed a history & physical examination of the patient and discussed their management with my nurse practitioner, Elissa Arboleda. I reviewed the nurse practitioner's note and agree with the documented findings and plan of care. Lung sounds are positive for a few bibasilar crackles. Clinically improved. No signs of septicemia. The findings and the impression was discussed with the patient. I attest to the documentation by the nurse practitioner. Time with Patient: Less than 30 <Samy Campbell - Last Filed: 09/25/17 14:10> Objective - Vital Signs Vital signs: Vital Signs Temp 97.7 F 09/25/17 07:00 Pulse 68 09/25/17 11:56 Resp 20 09/25/17 07:00 BP 137/59 09/25/17 07:00 Pulse Ox 95 09/25/17 11:41 Intake & Output 09/24/17 09/25/17 09/25/17 18:59 06:59 18:59 Intake Total 360 1200 480 Balance 360 1200 480 Weight 92 kg Intake: Oral 360 1200 480 Other: Voiding Method Urinal # Voids 1 2 - Labs CBC & Chem 7: 09/25/17 07:31 09/25/17 07:31 Labs: Abnormal Lab Results - Last 24 Hours (Table) 09/24/17 09/24/17 09/25/17 Range/Units 16:28 20:30 07:00 WBC (3.8-10.6) k/uL RBC (4.30-5.90) m/uL Hgb (13.0-17.5) gm/dL Hct (39.0-53.0) % Neutrophils # (1.3-7.7) k/uL Sodium (137-145) mmol/L Carbon Dioxide (22-30) mmol/L BUN (9-20) mg/dL Creatinine (0.66-1.25) mg/dL Glucose (74-99) mg/dL POC Glucose (mg/dL) 344 H 384 H 271 H (75-99) mg/dL 09/25/17 09/25/17 09/25/17 Range/Units 07:31 07:31 12:25 WBC 16.3 H (3.8-10.6) k/uL RBC 3.45 L (4.30-5.90) m/uL Hgb 10.4 L (13.0-17.5) gm/dL Hct 32.5 L (39.0-53.0) % Neutrophils # 13.1 H (1.3-7.7) k/uL Sodium 135 L (137-145) mmol/L Carbon Dioxide 18 L (22-30) mmol/L BUN 56 H (9-20) mg/dL Creatinine 1.51 H (0.66-1.25) mg/dL Glucose 246 H (74-99) mg/dL POC Glucose (mg/dL) 251 H (75-99) mg/dL Microbiology - Last 24 Hours (Table) 09/24/17 17:15 Gram Stain - Preliminary Sputum 09/23/17 17:12 Blood Culture - Preliminary Blood No Growth after 24 hours Assessment and Plan Plan: Patient is improving. The patient is recovering from left lower lobe pneumonia. Currently is on room air. No respiratory difficulties. No cough sputum production. He is hemodynamically stable. Discharge planning is in progress either today or tomorrow.
[2017-09-25] MEDS: B COMPLEX-VIT C-VIT E-ZINC 1 EACH TAB PO SCH (11:54)
[2017-09-25] MEDS: ASCORBIC ACID 500 MG TAB PO SCH (11:54)
[2017-09-25] MEDS: CHOLECALCIFEROL 1,000 UNIT TAB PO SCH (11:55)
[2017-09-25 13:21] LABS: Glucose,Whole Blood 251 mg/dL (75-99)
--- NOTE | 2017-09-25 14:23 | P.DS ---
Providers Date of admission: 09/23/17 19:52 Attending physician: Macy Back Consults: 09/23/17 19:52 Consult Physician Routine Consulting Provider: Jason Isaac Consult Reason/Comments: Pneumonia, dyspnea, febrile illness Do you want consulting provider notified?: Yes Primary care physician: [facility] Course: This 77-year-old gentleman with a past medical history multiple medical pulses admitted to the possibly left lower lobe bronchopneumonia, . Patient treated symptomatically. Patient was significantly. Dr. Campbell saw the patient. Patient be discharged in a stable condition with guarded prognosis. His On exam vitals are stable. Cardio S1 and S2 normal. Respirator system few crackles. Abdomen soft nontender. Final diagnosis next in 1. Acute left lower lobe pneumonia or bronchopneumonia possibly gram-negative. 2. Mild acute renal failure with hyperkalemia. 3. Diabetes mellitus type 2. 4. Troponin 0.06 significantly. Patient Condition at Discharge: Stable Plan - Discharge Summary New Discharge Prescriptions: New Azithromycin [Zithromax] 500 mg PO HS #5 tab Cefuroxime Axetil [Ceftin] 500 mg PO BID #10 tab predniSONE 10 mg PO DIRECTED #30 tab Albuterol Inhaler [Ventolin Hfa Inhaler] 2 puff INHALATION Q6HR PRN #1 inhaler PRN Reason: Shortness Of Breath Continue Aspirin EC [Ecotrin Low Dose] 81 mg PO DAILY Insulin Detemir [Levemir Flextouch] 30 - 35 units SQ HS Allopurinol 300 mg PO DAILY Pravastatin Sodium 40 mg PO HS Pantoprazole Sodium 40 mg PO DAILY Carvedilol [Coreg] 12.5 mg PO BID Losartan [Cozaar] 25 mg PO DAILY Torsemide 10 mg PO DAILY Abatacept/Maltose [Orencia] 0 mg IVPB Q30D hydrALAZINE HCL [Apresoline] 25 mg PO BID Orencia(Unknown Dose) 1 dose IVPB Q30D Vitamin B Complex 1 cap PO DAILY Isosorbide Mononitrate ER [Imdur] 30 mg PO DAILY Cholecalciferol [Vitamin D3] 1,000 unit PO DAILY Ascorbic Acid [Vitamin C] 1,000 mg PO DAILY Insulin Aspart [NovoLOG Flexpen] 10 units SQ AC-TID Insulin Aspart [NovoLOG Flexpen] See Protocol SQ AC-TID predniSONE 10 mg PO DAILY #0 Discharge Medication List Allopurinol 300 mg PO DAILY 05/31/16 [History] Aspirin EC [Ecotrin Low Dose] 81 mg PO DAILY 05/31/16 [History] Insulin Detemir [Levemir Flextouch] 30 - 35 units SQ HS 05/31/16 [History] Pantoprazole Sodium 40 mg PO DAILY 05/31/16 [History] Pravastatin Sodium 40 mg PO HS 05/31/16 [History] Carvedilol [Coreg] 12.5 mg PO BID 01/09/17 [History] Losartan [Cozaar] 25 mg PO DAILY 01/09/17 [History] Torsemide 10 mg PO DAILY 01/09/17 [History] Abatacept/Maltose [Orencia] 0 mg IVPB Q30D 04/05/17 [History] hydrALAZINE HCL [Apresoline] 25 mg PO BID 04/05/17 [History] Ascorbic Acid [Vitamin C] 1,000 mg PO DAILY 09/23/17 [History] Cholecalciferol [Vitamin D3] 1,000 unit PO DAILY 09/23/17 [History] Insulin Aspart [NovoLOG Flexpen] 10 units SQ AC-TID 09/23/17 [History] Insulin Aspart [NovoLOG Flexpen] See Protocol SQ AC-TID 09/23/17 [History] Isosorbide Mononitrate ER [Imdur] 30 mg PO DAILY 09/23/17 [History] Orencia(Unknown Dose) 1 dose IVPB Q30D 09/23/17 [History] Vitamin B Complex 1 cap PO DAILY 09/23/17 [History] Albuterol Inhaler [Ventolin Hfa Inhaler] 2 puff INHALATION Q6HR PRN #1 inhaler 09/25/17 [Rx] Azithromycin [Zithromax] 500 mg PO HS #5 tab 09/25/17 [Rx] Cefuroxime Axetil [Ceftin] 500 mg PO BID #10 tab 09/25/17 [Rx] predniSONE 10 mg PO DIRECTED #30 tab 09/25/17 [Rx] predniSONE 10 mg PO DAILY #0 09/25/17 [Rx] Follow up Appointment(s)/Referral(s): Jason Isaac MD [STAFF PHYSICIAN] - 3 Days ( wants to make own appointment) Darien Narvaez MD [STAFF PHYSICIAN] - 1 Week ( wants to make own appointments. ) Ambulatory/Diagnostic Orders: Complete Blood Count w/diff [LAB.AMB] Time Frame: 3 Days, Location: Determined By Patient Patient Instructions/Handouts: Pneumonia (DC) Activity/Diet/Wound Care/Special Instructions: Diet: Consistent carb- diabetic diet. activity: limited until follow up. Discharge Disposition: HOME SELF-CARE
[2017-09-26] MEDS ORDERED: LORATADINE 10 MG TAB PO SCH (09:00)
[2017-09-26] MEDS ORDERED: AZITHROMYCIN 500 MG TAB PO SCH (21:00)
== END 2017-09-25 14:08 | disposition home or self-care (01) | DRG 178 ==
LOC: EC 16:22 → 6SEL 19:52 → 4MS4W 09-24 17:00
PROVIDERS: ADMIT Hospitalist; ATTEND Hospitalist
DX: J15.6 Pneumonia due to other Gram-negative bacteria (principal); J44.0 Chronic obstructive pulmonary disease with (acute) lower respiratory infection; N17.9 Acute kidney failure, unspecified; E11.22 Type 2 diabetes mellitus with diabetic chronic kidney disease; E87.5 Hyperkalemia; J20.9 Acute bronchitis, unspecified; J18.0 Bronchopneumonia, unspecified organism; E78.5 Hyperlipidemia, unspecified; I12.9 Hypertensive chronic kidney disease with stage 1 through stage 4 chronic kidney disease, or unspecified chronic kidney disease; I25.10 Atherosclerotic heart disease of native coronary artery without angina pectoris; I51.7 Cardiomegaly; K44.9 Diaphragmatic hernia without obstruction or gangrene; M06.9 Rheumatoid arthritis, unspecified; M10.9 Gout, unspecified; M19.90 Unspecified osteoarthritis, unspecified site; N18.3 Chronic kidney disease, stage 3 (moderate); R00.0 Tachycardia, unspecified; R74.8 Abnormal levels of other serum enzymes; I25.5 Ischemic cardiomyopathy; H91.90 Unspecified hearing loss, unspecified ear; H54.7 Unspecified visual loss; Z79.4 Long term (current) use of insulin; Z79.52 Long term (current) use of systemic steroids; Z79.899 Other long term (current) drug therapy; Z79.82 Long term (current) use of aspirin; Z95.810 Presence of automatic (implantable) cardiac defibrillator; Z87.891 Personal history of nicotine dependence; Z88.8 Allergy status to other drugs, medicaments and biological substances; Z88.1 Allergy status to other antibiotic agents; Z91.041 Radiographic dye allergy status; Z91.013 Allergy to seafood; Z66 Do not resuscitate
CPT/HCPCS: 36415; 71020; 80048; 80053; 82550; 82553; 83735; 83880; 84484; 85025; 85610; 85730; 87040; 87070; 87205; 87502; 93005; 94640; 94760; 96360; 96361; 96365; 99285

== ENCOUNTER → 2018-02-25 | Outpatient (CLI) | payer MEDICARE, BC ==
[2018-02-25 09:00] LABS: Basophils # (A) 0.1 k/uL (0-0.2); Basophils % (A) 1 %; Eosinophils # (A) 0.6 k/uL (0-0.7); Eosinophils % (A) 4 %; HCT 37.3 % (39.0-53.0); HGB 11.9 gm/dL (13.0-17.5); Lymphocytes % (A) 34 %; MCH 27.4 pg (25.0-35.0); MCHC 31.8 g/dL (31.0-37.0); MCV 86.2 fL (80.0-100.0); Mean Platelet Volume 7.6; Monocytes # (A) 0.9 k/uL (0-1.0); Monocytes % (A) 6 %; Neutrophils # (A) 9.2 k/uL (1.3-7.7); Neutrophils % (A) 55 %; Platelet Count 385 k/uL (150-450); RBC 4.33 m/uL (4.30-5.90); RDW 14.5 % (11.5-15.5); Reticulocyte % 1.9 % (0.5-2.0); WBC 16.9 k/uL (3.8-10.6)
[2018-02-25 09:02] LABS: Lymphocytes # (A) 5.7 k/uL (1.0-4.8)
[2018-02-25 10:45] LABS: Calcium 9.4 mg/dL (8.4-10.2); Potassium 4.4 mmol/L (3.5-5.1)
[2018-02-25 11:52] LABS: T4, Free (Free Thyroxine) 1.28 ng/dL (0.78-2.19)
[2018-02-25 16:12] LABS: Iron Saturation 13.24 (15.00-50.00)
[2018-02-25 16:23] LABS: Vitamin D 25 Hydroxy 17.2 ng/mL (30.0-100.0)
[2018-02-25 16:32] LABS: Folate, Serum >24.0 ng/mL
[2018-02-25 19:24] LABS: Hemoglobin A1C 7.2 % (4.0-6.0)
== END | disposition home or self-care (01) ==
LOC: LABWHC1 08:10
PROVIDERS: ATTEND Family Medicine
DX: K90.9 Intestinal malabsorption, unspecified (principal); R73.9 Hyperglycemia, unspecified; R42 Dizziness and giddiness; E03.9 Hypothyroidism, unspecified; N62 Hypertrophy of breast
CPT/HCPCS: 36415; 80048; 82306; 82533; 82607; 82746; 83036; 83540; 83550; 84403; 84439; 84443; 85025; 85045

== ENCOUNTER → 2018-02-26 | Outpatient (CLI) | payer MEDICARE, BC ==
--- NOTE | 2018-02-26 15:35 | CT ---
EXAMINATION TYPE: CT cervical spine wo con DATE OF EXAM: 02/26/2018 COMPARISON: NONE HISTORY: 78-year-old male spinal stenosis, cervical pain TECHNIQUE: Contiguous axial scanning of the cervical spine without IV contrast. Coronal and sagittal reconstructions performed. CT DLP: 986 mGycm Automated exposure control for dose reduction was used. FINDINGS: Extensive patient motion degrading the exam. No craniocervical junction abnormality. There is degenerative change at the C1 dens articulation and evidence of a old type II odontoid fracture. No significant displacement. Some degenerative thickenin g behind the fracture margin mildly narrows the spinal canal. Hypertrophic facet and uncovertebral joint degenerative change throughout as well as advanced disc/en dplate degenerative change particularly from C3 through C7 levels. Grade 1 anterolisthesis at C2-C3 and at C7-T1. No acute fracture identified For the extensive motion artifacts. Along with disc osteophyte complex and ligamentum flavum thickening, there is at least a moderate spi nal canal stenosis at C4-C5 and at least moderate bilateral neuroforaminal stenoses. Mild spinal canal stenoses at C5-C6 and C6-C7. Moderate right and mild left neural foraminal stenosis at C5-C6 and severe right with moderate left neuroforaminal stenosis at C6-C7. IMPRESSION: 1. MOTION DEGRADED EXAM. 2. CHRONIC NONUNITED TYPE II DENS FRACTURE WITHOUT DISPLACEMENT. DEGENERATIVE SOFT TISSUE THICKENING ALONG THE POSTERIOR MARGIN OF THE FRACTURE MILDLY NARROWS THE SPINAL CANAL. 3. ADVANCED MULTILEVEL SPONDYLOTIC CHANGES. GRADE 1 ANTEROLISTHESIS AT C2-C3 AND C7-T1. 4. AT LEAST MODERATE SPINAL CANAL STENOSIS AT C4-C5 AND MILD AT C5-C6 AND C6-C7. 4. VARIABLE MODERATE NEUROFORAMINAL STENOSES MID TO LOWER CERVICAL SPINE, SEVERE ON THE RIGHT AT C6-C 7.
--- NOTE | 2018-02-26 15:42 | CT ---
EXAMINATION TYPE: CT lumbar spine wo con DATE OF EXAM: 02/26/2018 COMPARISON: NONE HISTORY: 78-year-old male spinal stenosis, lumbar pain TECHNIQUE: Contiguous axial scanning of the lumbar spine without IV contrast. Coronal and sagittal re constructions performed. CT DLP: 924 mGycm Automated exposure control for dose reduction was used. FINDINGS: Extrarenal pelvis on the right. Moderate atherosclerotic calcifications are abdominal aorta and iliac arteries. Degenerative changes right greater than left SI joints. Advanced disc session plate degenerative change throughout with degenerated, desiccated, narrowed, di ffusely bulging discs. Vacuum phenomenon is present at L3-L4 and L4-L5. 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 Vertebral body heights are maintained and alignment is preserved. At T12-L1, bulging disc without significant canal or foraminal stenosis. At L1-L2, bulging disc and facet degenerative change causing mild right and [id number] left leyla ral foraminal stenosis without significant spinal canal stenosis. At L2-L3, disc ostomy complex with facet arthropathy. This causes moderate spinal canal stenosis with moderate right and mild left neuroforaminal stenosis. At L3-L4, diffuse disc bulge with hypertrophic facet arthropathy. Suspect prior left-sided laminotomy change. There is a moderate spinal canal stenosis with severe right and [id number] left neurof oraminal stenosis. At L4-L5, there is diffuse disc bulge probably with some extruded disc material giving air tracking f rom the disc interspace along the right posterior aspect of the L4 vertebral body. Hypertrophic facet arthropathy is present. Changes result in at least mild spinal canal stenosis with severe left and m oderate to severe right neural foraminal stenosis. At L5-S1, disc osteophyte complex especially left paracentral location probably impinges the traversi ng left S1 nerve root. Eccentric left-sided disc osteophyte complex impresses onto the exiting left L 5 nerve root. There is mild right neuroforaminal stenosis. Suspect prior right-sided laminotomy here. IMPRESSION: 1. ADVANCED MULTILEVEL SPONDYLOTIC CHANGE WITH A DEGENERATED LEVOCONVEX SCOLIOSIS. NO VERTEBRAL COMPR ESSION COLLAPSE OR MALALIGNMENT. 2. SUSPECT PRIOR LEFT-SIDED LAMINOTOMY AT L3-L4 AND RIGHT-SIDED LAMINOTOMY AT L5-S1. 3. CHANGES RESULT IN MODERATE SPINAL CANAL STENOSIS AT L2-L3 AND L3-L4 AND MILD AT L4-L5. 4. VARIABLE NEUROFORAMINAL STENOSES OUTLINED ABOVE, SEVERE LEFT AND MODERATE TO SEVERE RIGHT L4-L5 AND SEVERE LEFT L5-S1. 5. DISC OSTEOPHYTE COMPLEX MAY ALSO IMPINGE THE TRAVERSING LEFT S1 NERVE ROOT AT L5-S1. 6. RIGHT GREATER THAN LEFT SI JOINT OA.
== END | disposition home or self-care (01) ==
LOC: RADCTMAIN 14:35
PROVIDERS: ATTEND Neurological Surgery
DX: M84.48XA Pathological fracture, other site, initial encounter for fracture (principal); M99.71 Connective tissue and disc stenosis of intervertebral foramina of cervical region; M43.12 Spondylolisthesis, cervical region; M47.812 Spondylosis without myelopathy or radiculopathy, cervical region; M48.061 Spinal stenosis, lumbar region without neurogenic claudication; M41.9 Scoliosis, unspecified; M47.816 Spondylosis without myelopathy or radiculopathy, lumbar region
CPT/HCPCS: 72125; 72131

== ENCOUNTER → 2018-03-04 | Outpatient (CLI) | payer MEDICARE, BC ==
[2018-03-04 09:07] LABS: T4, Free (Free Thyroxine) 1.14 ng/dL (0.78-2.19)
== END | disposition home or self-care (01) ==
LOC: LABWHC1 07:57
PROVIDERS: ATTEND Internal Medicine Endocrinology, Diabetes & Metabolism
DX: R94.6 Abnormal results of thyroid function studies (principal)
CPT/HCPCS: 36415; 84439; 84443

== ENCOUNTER 2018-03-27 20:31 | Inpatient (IN) | payer MEDICARE, BC ==
[2018-03-27] MEDS ORDERED: ACETAMINOPHEN TAB 500 MG TAB PO STA (21:37)
--- NOTE | 2018-03-27 21:40 | ED ---
General Adult HPI - General Chief complaint: Shortness of Breath Stated complaint: SOB Time Seen by Provider: 03/27/18 21:18 Source: patient, family, RN notes reviewed Mode of arrival: wheelchair Limitations: no limitations - History of Present Illness Initial comments: Patient is a pleasant 78-year-old male presenting to the emergency Department with complaints of not feeling well. Symptoms started a couple of days ago. Patient does have cough with yellow sputum production. Patient feels somewhat short of breath. Patient does have a history of similar symptoms previously associated with pneumonia. Patient has no history of COPD. Patient has myalgias and fatigue. - Related Data Home Medications Medication Instructions Recorded Confirmed Allopurinol 300 mg PO DAILY 05/31/16 03/27/18 Aspirin EC [Ecotrin Low Dose] 81 mg PO DAILY 05/31/16 03/27/18 Insulin Detemir [Levemir Flextouch] 30 - 35 units SQ HS 05/31/16 03/27/18 Pantoprazole Sodium 40 mg PO DAILY 05/31/16 03/27/18 Pravastatin Sodium 40 mg PO HS 05/31/16 03/27/18 Carvedilol [Coreg] 12.5 mg PO BID 01/09/17 03/27/18 Losartan [Cozaar] 25 mg PO DAILY 01/09/17 03/27/18 Torsemide 10 mg PO DAILY 01/09/17 03/27/18 hydrALAZINE HCL [Apresoline] 25 mg PO BID 04/05/17 03/27/18 Ascorbic Acid [Vitamin C] 1,000 mg PO DAILY 09/23/17 03/27/18 Cholecalciferol [Vitamin D3] 1,000 unit PO DAILY 09/23/17 03/27/18 Insulin Aspart [NovoLOG Flexpen] 10 units SQ AC-TID 09/23/17 03/27/18 Insulin Aspart [NovoLOG Flexpen] See Protocol SQ AC-TID 09/23/17 03/27/18 Isosorbide Mononitrate ER [Imdur] 30 mg PO DAILY 09/23/17 03/27/18 Vitamin B Complex 1 cap PO DAILY 09/23/17 03/27/18 Allergies Allergy/AdvReac Type Severity Reaction Status Date / Time amlodipine Allergy Swelling Verified 03/27/18 21:26 doxycycline Allergy Anaphylaxis Verified 03/27/18 21:26 iodine Allergy Rash/Hives Verified 03/27/18 21:26 metronidazole [From Flagyl] Allergy Rash/Hives Verified 03/27/18 21:26 shrimp Allergy Rash/Hives Verified 03/27/18 21:26 acarbose AdvReac Abdominal Verified 03/27/18 21:26 Pain amoxicillin trihydrate AdvReac Nausea & Verified 03/27/18 21:26 [From Augmentin] Vomiting potassium clavulanate AdvReac Nausea & Verified 03/27/18 21:26 [From Augmentin] Vomiting Review of Systems ROS Statement: Those systems with pertinent positive or pertinent negative responses have been documented in the HPI. ROS Other: All systems not noted in ROS Statement are negative. Constitutional: Reports: chills, weakness Eyes: Denies: eye pain ENT: Reports: congestion. Denies: ear pain Respiratory: Reports: cough, dyspnea Cardiovascular: Denies: chest pain Endocrine: Reports: fatigue Gastrointestinal: Denies: abdominal pain Genitourinary: Denies: dysuria Musculoskeletal: Denies: back pain Skin: Denies: rash Neurological: Denies: confusion Past Medical History Past Medical History: CVA/TIA, Diabetes Mellitus, Hyperlipidemia, Hypertension, Musculoskeletal Disorder, Renal Disease, Rheumatoid Arthritis (RA), Thyroid Disorder Additional Past Medical History / Comment(s): Nonocclusive CAD base and a cardiac catheterization from 2016, chronic renal failure, chronic hyperkalemia, diabetes mellitus, hypertension, hyperlipidemia, rheumatoid arthritis maintained on a combination of methotrexate and prednisone outpatient basis, degenerative arthritis, gout, 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, CVA in 2005, hiatal hernia History of Any Multi-Drug Resistant Organisms: None Reported Past Surgical History: AICD, Back Surgery, Heart Catheterization, Pacemaker, Tonsillectomy Additional Past Surgical History / Comment(s): Biventricular AICD placement, back surgery 5, cardiac catheterization, tonsillectomy Past Anesthesia/Blood Transfusion Reactions: No Reported Reaction Type of Cardiac Device: Permanent Pacemaker, AICD Device Placement Date:: 2016 Past Psychological History: No Psychological Hx Reported Smoking Status: Former smoker Past Alcohol Use History: None Reported Past Drug Use History: None Reported - Past Family History Mother Family Medical History: No Reported History Father History Unknown: Yes General Exam Limitations: no limitations General appearance: alert, in no apparent distress Head exam: Present: atraumatic Eye exam: Present: normal appearance, PERRL ENT exam: Present: normal oropharynx, other (Mild tenderness over the frontal and maxillary sinuses.) Neck exam: Present: normal inspection Respiratory exam: Present: rales (left base) Cardiovascular Exam: Present: regular rate, normal rhythm GI/Abdominal exam: Present: soft. Absent: tenderness Extremities exam: Present: normal inspection. Absent: pedal edema, calf tenderness Neurological exam: Present: alert Psychiatric exam: Present: normal affect, normal mood Skin exam: Present: normal color Course Vital Signs 03/27/18 03/27/18 03/27/18 20:34 20:56 20:57 Temperature 99.9 F H Pulse Rate 78 69 Respiratory 20 22 18 Rate Blood Pressure 151/73 166/78 O2 Sat by Pulse 97 94 L Oximetry 03/27/18 03/27/18 21:14 22:26 Temperature 100.4 F H 100.4 F H Pulse Rate 66 Respiratory 18 Rate Blood Pressure 161/69 O2 Sat by Pulse 99 Oximetry - Reevaluation(s) Reevaluation #1: 03/27/18 22:45 Patient does meet sepsis criteria diagnosed at 2245. Cultures and lactic acid have been ordered. IV antibiotics will be ordered. Medical Decision Making - Medical Decision Making Patient reevaluated. Patient and family updated. Case was discussed in detail with practitioner Mai raphael, who will admit for Dr. Back. Patient has previously seen Dr. Back. - Lab Data Result diagrams: 03/27/18 20:50 03/27/18 20:50 Lab Results 03/27/18 03/27/18 03/27/18 Range/Units 20:50 20:50 20:50 WBC 15.2 H (3.8-10.6) k/uL RBC 4.13 L (4.30-5.90) m/uL Hgb 11.0 L (13.0-17.5) gm/dL Hct 34.6 L (39.0-53.0) % MCV 83.6 (80.0-100.0) fL MCH 26.5 (25.0-35.0) pg MCHC 31.7 (31.0-37.0) g/dL RDW 15.3 (11.5-15.5) % Plt Count 354 (150-450) k/uL Neutrophils % 57 % Lymphocytes % 29 % Monocytes % 8 % Eosinophils % 4 % Basophils % 1 % Neutrophils # 8.7 H (1.3-7.7) k/uL Lymphocytes # 4.4 (1.0-4.8) k/uL Monocytes # 1.2 H (0-1.0) k/uL Eosinophils # 0.6 (0-0.7) k/uL Basophils # 0.1 (0-0.2) k/uL PT (9.0-12.0) sec INR (<1.2) APTT (22.0-30.0) sec Sodium 140 (137-145) mmol/L Potassium 4.5 (3.5-5.1) mmol/L Chloride 104 (98-107) mmol/L Carbon Dioxide 22 (22-30) mmol/L Anion Gap 14 mmol/L BUN 24 H (9-20) mg/dL Creatinine 1.50 H (0.66-1.25) mg/dL Est GFR (CKD-EPI)AfAm 51 (>60 ml/min/1.73 sqM) Est GFR (CKD-EPI)NonAf 44 (>60 ml/min/1.73 sqM) Glucose 138 H (74-99) mg/dL Plasma Lactic Acid Daljit (0.7-2.0) mmol/L Calcium 8.9 (8.4-10.2) mg/dL Total Bilirubin 0.5 (0.2-1.3) mg/dL AST 17 (17-59) U/L ALT 11 L (21-72) U/L Alkaline Phosphatase 63 (38-126) U/L Total Protein 5.9 L (6.3-8.2) g/dL Albumin 3.3 L (3.5-5.0) g/dL Influenza Type A RNA Not Detected (Not Detectd) Influenza Type B (PCR) Not Detected (Not Detectd) 03/27/18 03/27/18 Range/Units 20:50 20:50 WBC (3.8-10.6) k/uL RBC (4.30-5.90) m/uL Hgb (13.0-17.5) gm/dL Hct (39.0-53.0) % MCV (80.0-100.0) fL MCH (25.0-35.0) pg MCHC (31.0-37.0) g/dL RDW (11.5-15.5) % Plt Count (150-450) k/uL Neutrophils % % Lymphocytes % % Monocytes % % Eosinophils % % Basophils % % Neutrophils # (1.3-7.7) k/uL Lymphocytes # (1.0-4.8) k/uL Monocytes # (0-1.0) k/uL Eosinophils # (0-0.7) k/uL Basophils # (0-0.2) k/uL PT 9.3 (9.0-12.0) sec INR 0.9 (<1.2) APTT 23.1 (22.0-30.0) sec Sodium (137-145) mmol/L Potassium (3.5-5.1) mmol/L Chloride (98-107) mmol/L Carbon Dioxide (22-30) mmol/L Anion Gap mmol/L BUN (9-20) mg/dL Creatinine (0.66-1.25) mg/dL Est GFR (CKD-EPI)AfAm (>60 ml/min/1.73 sqM) Est GFR (CKD-EPI)NonAf (>60 ml/min/1.73 sqM) Glucose (74-99) mg/dL Plasma Lactic Acid Daljit 1.4 (0.7-2.0) mmol/L Calcium (8.4-10.2) mg/dL Total Bilirubin (0.2-1.3) mg/dL AST (17-59) U/L ALT (21-72) U/L Alkaline Phosphatase (38-126) U/L Total Protein (6.3-8.2) g/dL Albumin (3.5-5.0) g/dL Influenza Type A RNA (Not Detectd) Influenza Type B (PCR) (Not Detectd) - Radiology Data Radiology results: image reviewed (Left lower lobe infiltrate versus atelectasis.) Critical Care Time Critical Care Time: Yes Total Critical Care Time: 32 Disposition Clinical Impression: Left lower lobe pneumonia, Sepsis Disposition: ADMITTED IP TO THIS [facility] Is patient prescribed a controlled substance at d/c from ED?: No Referrals: Jason Isaac MD [STAFF PHYSICIAN] - 1-2 days Decision Time: 22:46
[2018-03-27] MEDS ORDERED: SODIUM CHLORIDE 0.9% 500 ML IV SCH (21:45)
[2018-03-27 21:47] LABS: Basophils # (A) 0.1 k/uL (0-0.2); Basophils % (A) 1 %; Eosinophils # (A) 0.6 k/uL (0-0.7); Eosinophils % (A) 4 %; HCT 34.6 % (39.0-53.0); Lymphocytes # (A) 4.4 k/uL (1.0-4.8); Lymphocytes % (A) 29 %; MCH 26.5 pg (25.0-35.0); MCHC 31.7 g/dL (31.0-37.0); MCV 83.6 fL (80.0-100.0); Mean Platelet Volume 7.9; Monocytes # (A) 1.2 k/uL (0-1.0); Monocytes % (A) 8 %; Neutrophils # (A) 8.7 k/uL (1.3-7.7); Neutrophils % (A) 57 %; Platelet Count 354 k/uL (150-450); RBC 4.13 m/uL (4.30-5.90); RDW 15.3 % (11.5-15.5); WBC 15.2 k/uL (3.8-10.6)
[2018-03-27 21:54] LABS: INR 0.9 (<1.2); Partial Thromboplastin Time 23.1 sec (22.0-30.0); Prothrombin Time 9.3 sec (9.0-12.0)
[2018-03-27 22:02] LABS: Albumin 3.3 g/dL (3.5-5.0); Calcium 8.9 mg/dL (8.4-10.2); Potassium 4.5 mmol/L (3.5-5.1); Total Bilirubin 0.5 mg/dL (0.2-1.3); Total Protein 5.9 g/dL (6.3-8.2)
--- NOTE | 2018-03-27 22:33 | XR ---
EXAM: XR Chest, 2 Views CLINICAL HISTORY: Patient c/o SOB and fever. Hx: pneumonia. Reason: Fever TECHNIQUE: Frontal and lateral views of the chest. COMPARISON: Chest radiograph on 02/13/2018 FINDINGS: Hardware: None. Lungs/pleura: Similar left basilar atelectasis versus pneumonia. Small left pleural effusion versus pleural thickening. Heart/mediastinum: Stable mild enlargement of the cardiac silhouette. Left-sided pacemaker/AICD. Soft tissues: Unremarkable. Bones: No acute fracture. Degenerative changes of the spine Upper abdomen: Normal. IMPRESSION: Similar mild left basilar atelectasis versus pneumonia. Small left pleural effusion versus pleural thickening.
[2018-03-27] MEDS ORDERED: AZITHROMYCIN 500 MG in SODIUM CHLORIDE 0.9% 250 ML IVPB STA (22:46)
[2018-03-27] MEDS ORDERED: IPRATROPIUM-ALBUTEROL 3 ML NEB INHALATION PRN (22:46)
[2018-03-27] MEDS ORDERED: PNEUMONIA PROTOCOL UTILIZED 1 EACH MISC PO PRN (22:46)
[2018-03-27] MEDS ORDERED: cefTRIAXone IN SWFI 1,000 MG/10 ML SYRINGE IVP STA (22:46)
[2018-03-27] MEDS: SODIUM CHLORIDE 0.9% 1,000 ML IV SCH (23:05)
[2018-03-27] MEDS ORDERED: MELATONIN 5 MG TABLET PO SCH (23:45)
[2018-03-28 01:14] VITALS: TEMP 98.6
[2018-03-28 04:29] LABS: Appearance,Urine Clear (Clear); Bilirubin,Urine Negative (Negative); Blood,Urine Negative (Negative); Color,Urine Yellow; Glucose,Urine (UA) Negative (Negative); Ketones,Urine Negative (Negative); Leukocyte Esterase,Urine Negative (Negative); Nitrite,Urine Negative (Negative); PH, Urine 5.5 (5.0-8.0); Protein,Urine Negative (Negative); Specific Gravity,Urine 1.015 (1.001-1.035); Urobilinogen,Urine <2.0 mg/dL (<2.0)
[2018-03-28 06:34] VITALS: BP 154/61; PULSE 57; RESP 20
[2018-03-28 07:12] LABS: Glucose,Whole Blood 149 mg/dL (75-99)
[2018-03-28] MEDS: SODIUM CHLORIDE 0.9% 1,000 ML IV SCH (08:18)
--- NOTE | 2018-03-28 09:48 | P.CNPUL ---
History of Present Illness Consult date: 03/28/18 Requesting physician: Macy Back Reason for consult: cough, other Chief complaint: Productive cough, chills, fatigue, body aches History of present illness: Mr. Diaz is a 78-year-old white male patient who presented emergency department on 03/27/2018 at 2138 with complaints of feeling tired, achy, patient was having chills, productive cough with yellow phlegm. Patient sees Dr. James in the pulmonary office, and was told he does not have COPD, the patient carries [id number] smoking history, and she quit 30 years ago. Denied any chest pain, did have some shortness of breath. Other past medical history includes diabetes mellitus, hyperlipidemia, hypertension, CVA/TIA, rheumatoid arthritis, hypothyroidism, chronic renal failure, ischemic cardiomyopathy with a biventricular pacemaker/AICD in place, osteoarthritis. Chest x-ray was completed, and showed mild left basilar atelectasis, small left pleural effusion, but no clear evidence of an infiltrate. Labs showed WBC of 15.2. Hemoglobin of 11.0, BUN of 24, creatinine 1.5. Electrolytes were within normal limits. Plasma lactic acid was 1.4, influenza screen was negative, urinalysis was negative. Patient was started on empiric antibiotics in the form of Rocephin and azithromycin, nebulized treatments, and admitted for further management. Review of Systems All systems: negative Constitutional: Denies chills, Denies fever Eyes: denies blurred vision, denies pain Ears, nose, mouth and throat: Denies headache, Denies sore throat Cardiovascular: Denies chest pain, Denies shortness of breath Respiratory: Reports congestion, Reports cough with sputum, Reports dyspnea, Denies cough Gastrointestinal: Denies abdominal pain, Denies diarrhea, Denies nausea, Denies vomiting Musculoskeletal: Denies myalgias Integumentary: Denies pruritus, Denies rash Neurological: Denies numbness, Denies weakness Psychiatric: Denies anxiety, Denies depression Endocrine: Denies fatigue, Denies weight change Past Medical History Past Medical History: CVA/TIA, Diabetes Mellitus, Hyperlipidemia, Hypertension, Musculoskeletal Disorder, Renal Disease, Rheumatoid Arthritis (RA), Thyroid Disorder Additional Past Medical History / Comment(s): Nonocclusive CAD base and a cardiac catheterization from 2016, chronic renal failure, chronic hyperkalemia, diabetes mellitus, hypertension, hyperlipidemia, rheumatoid arthritis maintained on a combination of methotrexate and prednisone outpatient basis, degenerative arthritis, gout, 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, CVA in 2005, hiatal hernia History of Any Multi-Drug Resistant Organisms: None Reported Past Surgical History: AICD, Back Surgery, Heart Catheterization, Pacemaker, Tonsillectomy Additional Past Surgical History / Comment(s): Biventricular AICD placement, back surgery 5, cardiac catheterization, tonsillectomy Past Anesthesia/Blood Transfusion Reactions: No Reported Reaction Type of Cardiac Device: Permanent Pacemaker, AICD Device Placement Date:: 2016 Past Psychological History: No Psychological Hx Reported Smoking Status: Former smoker Past Alcohol Use History: None Reported Additional Past Alcohol Use History / Comment(s): SMOKED 30 YEARS, 2 1/2 PPD, QUIT 1991 EST Past Drug Use History: None Reported - Past Family History Mother Family Medical History: No Reported History Father History Unknown: Yes Medications and Allergies Home Medications Medication Instructions Recorded Confirmed Type Allopurinol 300 mg PO DAILY 05/31/16 03/27/18 History Aspirin EC [Ecotrin Low Dose] 81 mg PO DAILY 05/31/16 03/27/18 History Insulin Detemir [Levemir Flextouch] 30 - 35 units SQ HS 05/31/16 03/27/18 History Pantoprazole Sodium 40 mg PO DAILY 05/31/16 03/27/18 History Pravastatin Sodium 40 mg PO HS 05/31/16 03/27/18 History Carvedilol [Coreg] 12.5 mg PO BID 01/09/17 03/27/18 History Losartan [Cozaar] 25 mg PO DAILY 01/09/17 03/27/18 History Torsemide 10 mg PO DAILY 01/09/17 03/27/18 History hydrALAZINE HCL [Apresoline] 25 mg PO BID 04/05/17 03/27/18 History Ascorbic Acid [Vitamin C] 1,000 mg PO DAILY 09/23/17 03/27/18 History Cholecalciferol [Vitamin D3] 1,000 unit PO DAILY 09/23/17 03/27/18 History Insulin Aspart [NovoLOG Flexpen] 10 units SQ AC-TID 09/23/17 03/27/18 History Insulin Aspart [NovoLOG Flexpen] See Protocol SQ AC-TID 09/23/17 03/27/18 History Isosorbide Mononitrate ER [Imdur] 30 mg PO DAILY 09/23/17 03/27/18 History Vitamin B Complex 1 cap PO DAILY 09/23/17 03/27/18 History Levothyroxine Sodium [Synthroid] 50 mcg PO DAILY 03/27/18 03/27/18 History Allergies Allergy/AdvReac Type Severity Reaction Status Date / Time amlodipine Allergy Swelling Verified 03/27/18 21:26 doxycycline Allergy Anaphylaxis Verified 03/27/18 21:26 iodine Allergy Rash/Hives Verified 03/27/18 21:26 metronidazole [From Flagyl] Allergy Rash/Hives Verified 03/27/18 21:26 shrimp Allergy Rash/Hives Verified 03/27/18 21:26 acarbose AdvReac Abdominal Verified 03/27/18 21:26 Pain amoxicillin trihydrate AdvReac Nausea & Verified 03/27/18 21:26 [From Augmentin] Vomiting potassium clavulanate AdvReac Nausea & Verified 03/27/18 21:26 [From Augmentin] Vomiting Physical Exam Vitals: Vital Signs Temp Pulse Pulse Resp BP BP Pulse Ox 03/28/18 06:00 98.6 F 57 L 20 154/61 96 03/27/18 23:30 98.6 F 72 22 148/66 93 L 03/27/18 23:01 99.2 F 64 18 150/70 94 L 03/27/18 22:26 100.4 F H 66 18 161/69 99 03/27/18 21:14 100.4 F H 03/27/18 20:57 69 18 166/78 94 L 03/27/18 20:56 22 03/27/18 20:34 99.9 F H 78 20 151/73 97 Intake and Output 03/27/18 03/28/18 03/28/18 22:59 06:59 14:59 Intake Total 800 Balance 800 Intake: IV 800 Sodium Chloride 0.9% 1, 800 000 ml @ 100 mls/hr IV . Q10H [facility] Rx#:[id number] Other: Voiding Method Urinal Weight 92.533 kg - Constitutional General appearance: average body habitus, no acute distress - EENT Eyes: EOMI ENT: NA/AT, normal oropharynx Ears: bilateral: normal - Neck Neck: no lymphadenopathy Carotids: bilateral: upstroke normal Thyroid: bilateral: normal size - Respiratory Respiratory: bilateral: rales (Left posterior pelvis) - Cardiovascular Rhythm: regular Heart sounds: normal: S1, S2 - Gastrointestinal General gastrointestinal: no organomegaly, soft, no tenderness - Integumentary Integumentary: normal turgor - Neurologic Neurologic: CNII-XII intact - Musculoskeletal Musculoskeletal: strength equal bilaterally - Psychiatric Psychiatric: A&O x's 3, appropriate affect, intact judgment & insight Results - Laboratory Findings CBC and BMP: 03/27/18 20:50 03/27/18 20:50 PT/INR, D-dimer PT 9.3 sec (9.0-12.0) 03/27/18 20:50 INR 0.9 (<1.2) 03/27/18 20:50 Abnormal lab findings: Abnormal Labs 03/27/18 03/27/18 03/28/18 20:50 20:50 07:08 WBC 15.2 H RBC 4.13 L Hgb 11.0 L Hct 34.6 L Neutrophils # 8.7 H Monocytes # 1.2 H BUN 24 H Creatinine 1.50 H Glucose 138 H POC Glucose (mg/dL) 149 H ALT 11 L Total Protein 5.9 L Albumin 3.3 L - Diagnostic Findings Chest x-ray: report reviewed, image reviewed Assessment and Plan Plan: Assessment: #1. Mild shortness of breath, chest congestion and cough with production of yellow sputum, and a chest x-ray was negative for any clear-cut evidence of an infiltrate. This is likely related to acute bronchitis #2. Mild leukocytosis #3. Chronic kidney disease #4. Anemia of chronic disease #5. Ischemic cardiomyopathy, history of biventricular pacemaker/AICD #6. Diabetes mellitus #7. Hypertension, hyperlipidemia #8. Osteoarthritis #9. History of CVA/TIA Plan: Patient reports improvement overnight his dyspnea, and chest congestion. Patient is afebrile, vital signs are stable. X-ray was reviewed, and no evidence of an infiltrate was appreciated. Patient is stable for discharge home today from pulmonary standpoint on Medrol Dosepak, and outpatient course of oral antibiotics. Follow-up with Dr. James in the office I performed a history & physical examination of the patient and discussed their management with my nurse practitioner, Elissa Arboleda. I reviewed the nurse practitioner's note and agree with the documented findings and plan of care. Lung sounds are some limited crackles at the left posterior lower base. The findings and the impression was discussed with the patient. I attest to the documentation by the nurse practitioner. Time with Patient: Greater than 30
[2018-03-28 12:40] LABS: Glucose,Whole Blood 176 mg/dL (75-99)
[2018-03-28] MEDS ORDERED: IPRATROPIUM-ALBUTEROL 3 ML NEB INHALATION SCH (13:00)
--- NOTE | 2018-03-28 13:02 | P.HPIM ---
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 Patient blood pressure apparently stays low at home because of which I'm also discontinuing hydralazine which I do not believe is necessary either. Patient presently denied fever chills patient lungs are clear to auscultation. Patient may have had mild the bronchitis mild COPD exacerbation at do not believe patient will need systemic steroids. Patient has an inhaler at home which she doesn't use. Patient will be discharged on 3 days of oral antibiotics for possible bacterial bronchitis. My suspicion is extremely low for pneumonia Review of Systems REVIEW OF SYSTEMS: CONSTITUTIONAL: No fever, no malaise, no fatigue. HEENT: No recent visual problems or hearing problems. Denied any sore throat. CARDIOVASCULAR: No chest pain, orthopnea, PND, no palpitations, no syncope. PULMONARY: As mentioned in HPI GASTROINTESTINAL: No diarrhea, no nausea, no vomiting, no abdominal pain. Normoactive bowel sounds. NEUROLOGICAL: No headaches, no weakness, no numbness. HEMATOLOGICAL: Denies any bleeding or petechiae. GENITOURINARY: Denies any burning micturition, frequency, or urgency. MUSCULOSKELETAL/RHEUMATOLOGICAL: Denies any joint pain, swelling, or any muscle pain. ENDOCRINE: Denies any polyuria or polydipsia. The rest of the 14-point review of systems is negative. 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, CVA in 2005, hiatal hernia History of Any Multi-Drug Resistant Organisms: None Reported Past Surgical History: AICD, Back Surgery, Heart Catheterization, Pacemaker, Tonsillectomy Additional Past Surgical History / Comment(s): Biventricular AICD placement, back surgery 5, cardiac catheterization, tonsillectomy Past Anesthesia/Blood Transfusion Reactions: No Reported Reaction Type of Cardiac Device: Permanent Pacemaker, AICD Device Placement Date:: 2016 Past Psychological History: No Psychological Hx Reported Smoking Status: Former smoker Past Alcohol Use History: None Reported Additional Past Alcohol Use History / Comment(s): SMOKED 30 YEARS, 2 1/2 PPD, QUIT 1991 EST Past Drug Use History: None Reported - Past Family History Mother Family Medical History: No Reported History Father History Unknown: Yes Medications and Allergies Home Medications Medication Instructions Recorded Confirmed Type Allopurinol 300 mg PO DAILY 05/31/16 03/27/18 History Aspirin EC [Ecotrin Low Dose] 81 mg PO DAILY 05/31/16 03/27/18 History Insulin Detemir [Levemir Flextouch] 30 - 35 units SQ HS 05/31/16 03/27/18 History Pantoprazole Sodium 40 mg PO DAILY 05/31/16 03/27/18 History Pravastatin Sodium 40 mg PO HS 05/31/16 03/27/18 History Carvedilol [Coreg] 12.5 mg PO BID 01/09/17 03/27/18 History Losartan [Cozaar] 25 mg PO DAILY 01/09/17 03/27/18 History Ascorbic Acid [Vitamin C] 1,000 mg PO DAILY 09/23/17 03/27/18 History Cholecalciferol [Vitamin D3] 1,000 unit PO DAILY 09/23/17 03/27/18 History Insulin Aspart [NovoLOG Flexpen] 10 units SQ AC-TID 09/23/17 03/27/18 History Insulin Aspart [NovoLOG Flexpen] See Protocol SQ AC-TID 09/23/17 03/27/18 History Isosorbide Mononitrate ER [Imdur] 30 mg PO DAILY 09/23/17 03/27/18 History Vitamin B Complex 1 cap PO DAILY 09/23/17 03/27/18 History Levothyroxine Sodium [Synthroid] 50 mcg PO DAILY 03/27/18 03/27/18 History Azithromycin [Zithromax] 500 mg PO DAILY #3 tab 03/28/18 Rx Allergies Allergy/AdvReac Type Severity Reaction Status Date / Time amlodipine Allergy Swelling Verified 03/27/18 21:26 doxycycline Allergy Anaphylaxis Verified 03/27/18 21:26 iodine Allergy Rash/Hives Verified 03/27/18 21:26 metronidazole [From Flagyl] Allergy Rash/Hives Verified 03/27/18 21:26 shrimp Allergy Rash/Hives Verified 03/27/18 21:26 acarbose AdvReac Abdominal Verified 03/27/18 21:26 Pain amoxicillin trihydrate AdvReac Nausea & Verified 03/27/18 21:26 [From Augmentin] Vomiting potassium clavulanate AdvReac Nausea & Verified 03/27/18 21:26 [From Augmentin] Vomiting Physical Exam Vitals: Vital Signs Temp Pulse Pulse Resp BP BP Pulse Ox 03/28/18 06:00 98.6 F 57 L 20 154/61 96 03/27/18 23:30 98.6 F 72 22 148/66 93 L 03/27/18 23:01 99.2 F 64 18 150/70 94 L 03/27/18 22:26 100.4 F H 66 18 161/69 99 03/27/18 21:14 100.4 F H 03/27/18 20:57 69 18 166/78 94 L 03/27/18 20:56 22 03/27/18 20:34 99.9 F H 78 20 151/73 97 Intake and Output 03/27/18 03/28/18 03/28/18 22:59 06:59 14:59 Intake Total 800 Balance 800 Intake: IV 800 Sodium Chloride 0.9% 1, 800 000 ml @ 100 mls/hr IV . Q10H [facility] Rx#:[id number] Other: Voiding Method Urinal Weight 92.533 kg PHYSICAL EXAMINATION: GENERAL: The patient is alert and oriented x3, not in any acute distress. Well developed, well nourished. HEENT: Pupils are round and equally reacting to light. EOMI. No scleral icterus. No conjunctival pallor. Normocephalic, atraumatic. No pharyngeal erythema. No thyromegaly. CARDIOVASCULAR: S1 and S2 present. No murmurs, rubs, or gallops. PULMONARY: Chest is clear to auscultation, no wheezing or crackles. ABDOMEN: Soft, nontender, nondistended, normoactive bowel sounds. No palpable organomegaly. MUSCULOSKELETAL: No joint swelling or deformity. EXTREMITIES: No cyanosis, clubbing, or pedal edema. NEUROLOGICAL: Gross neurological examination did not reveal any focal deficits. SKIN: No rashes. Results CBC & Chem 7: 03/27/18 20:50 03/27/18 20:50 Labs: Abnormal Lab Results - Last 24 Hours (Table) 03/27/18 03/27/18 03/28/18 Range/Units 20:50 20:50 07:08 WBC 15.2 H (3.8-10.6) k/uL RBC 4.13 L (4.30-5.90) m/uL Hgb 11.0 L (13.0-17.5) gm/dL Hct 34.6 L (39.0-53.0) % Neutrophils # 8.7 H (1.3-7.7) k/uL Monocytes # 1.2 H (0-1.0) k/uL BUN 24 H (9-20) mg/dL Creatinine 1.50 H (0.66-1.25) mg/dL Glucose 138 H (74-99) mg/dL POC Glucose (mg/dL) 149 H (75-99) mg/dL ALT 11 L (21-72) U/L Total Protein 5.9 L (6.3-8.2) g/dL Albumin 3.3 L (3.5-5.0) g/dL 03/28/18 Range/Units 12:34 WBC (3.8-10.6) k/uL RBC (4.30-5.90) m/uL Hgb (13.0-17.5) gm/dL Hct (39.0-53.0) % Neutrophils # (1.3-7.7) k/uL Monocytes # (0-1.0) k/uL BUN (9-20) mg/dL Creatinine (0.66-1.25) mg/dL Glucose (74-99) mg/dL POC Glucose (mg/dL) 176 H (75-99) mg/dL ALT (21-72) U/L Total Protein (6.3-8.2) g/dL Albumin (3.5-5.0) g/dL Microbiology - Last 24 Hours (Table) 03/28/18 04:04 Urine Culture - Preliminary Urine,Voided Thrombosis Risk Factor Assmnt - Choose All That Apply Any of the Below Risk Factors Present?: Yes Each Factor Represents 1 point: Obesity (BMI >25) Each Risk Factor Represents 3 Points: Age 75 years or older Thrombosis Risk Factor Assessment Total Risk Factor Score: 4 Thrombosis Risk Factor Assessment Level: Moderate Risk Assessment and Plan Plan: -Mild shortness of breath: Secondary to bronchitis which resolved at this point of time. Patient was discharged on Ativan for bronchitis I do not believe patient will use any inhaled steroids and he doesn't require oral steroids patient can use albuterol as needed which she has at home. -Leukocytosis reactive in nature -Possibly of chronic kidney disease stage III I'm actually hoping that his kidney function will improve because of which diuretic therapy was discontinued. -Anemia of chronic disease -History of Lyme's disease with the cardiac rhythm abnormalities because of which patient has a pacemaker -Type 2 diabetes mellitus -Hypertension -Osteoarthritis next and-CVA TIA in the past For above-mentioned chronic medical problems patient will continue his home medications.
--- NOTE | 2018-03-28 13:02 | P.DS ---
Providers Date of admission: 03/27/18 22:46 Attending physician: Macy Back Consults: 03/27/18 22:46 Consult Physician Routine Consulting Provider: Jason Isaac Consult Reason/Comments: pneumonia Do you want consulting provider notified?: Yes Primary care physician: Anna Jaques Hospital Course: As mentioned in HPI Patient Condition at Discharge: Good Plan - Discharge Summary Discharge Rx Participant: No New Discharge Prescriptions: New Azithromycin [Zithromax] 500 mg PO DAILY #3 tab Continue Aspirin EC [Ecotrin Low Dose] 81 mg PO DAILY Insulin Detemir [Levemir Flextouch] 30 - 35 units SQ HS Allopurinol 300 mg PO DAILY Pravastatin Sodium 40 mg PO HS Pantoprazole Sodium 40 mg PO DAILY Carvedilol [Coreg] 12.5 mg PO BID Losartan [Cozaar] 25 mg PO DAILY Vitamin B Complex 1 cap PO DAILY Isosorbide Mononitrate ER [Imdur] 30 mg PO DAILY Cholecalciferol [Vitamin D3] 1,000 unit PO DAILY Ascorbic Acid [Vitamin C] 1,000 mg PO DAILY Insulin Aspart [NovoLOG Flexpen] 10 units SQ AC-TID Insulin Aspart [NovoLOG Flexpen] See Protocol SQ AC-TID Levothyroxine Sodium [Synthroid] 50 mcg PO DAILY Discontinued Torsemide 10 mg PO DAILY hydrALAZINE HCL [Apresoline] 25 mg PO BID Discharge Medication List Allopurinol 300 mg PO DAILY 05/31/16 [History] Aspirin EC [Ecotrin Low Dose] 81 mg PO DAILY 05/31/16 [History] Insulin Detemir [Levemir Flextouch] 30 - 35 units SQ HS 05/31/16 [History] Pantoprazole Sodium 40 mg PO DAILY 05/31/16 [History] Pravastatin Sodium 40 mg PO HS 05/31/16 [History] Carvedilol [Coreg] 12.5 mg PO BID 01/09/17 [History] Losartan [Cozaar] 25 mg PO DAILY 01/09/17 [History] Ascorbic Acid [Vitamin C] 1,000 mg PO DAILY 09/23/17 [History] Cholecalciferol [Vitamin D3] 1,000 unit PO DAILY 09/23/17 [History] Insulin Aspart [NovoLOG Flexpen] 10 units SQ AC-TID 09/23/17 [History] Insulin Aspart [NovoLOG Flexpen] See Protocol SQ AC-TID 09/23/17 [History] Isosorbide Mononitrate ER [Imdur] 30 mg PO DAILY 09/23/17 [History] Vitamin B Complex 1 cap PO DAILY 09/23/17 [History] Levothyroxine Sodium [Synthroid] 50 mcg PO DAILY 03/27/18 [History] Azithromycin [Zithromax] 500 mg PO DAILY #3 tab 03/28/18 [Rx] Follow up Appointment(s)/Referral(s): Jason Isaac MD [STAFF PHYSICIAN] - 04/04/18 3:00 pm Rikki Trent DO [Primary Care Provider] - 1 Week Patient Instructions/Handouts: Pneumonia (DC) Discharge Disposition: HOME SELF-CARE
[2018-03-28] MEDS ORDERED: AZITHROMYCIN 500 MG TAB PO SCH (21:00)
[2018-03-28] MEDS ORDERED: cefTRIAXone IN SWFI 1,000 MG/10 ML SYRINGE IVP SCH (23:00)
== END 2018-03-28 12:53 | disposition home or self-care (01) | DRG 202 ==
LOC: EC 20:31 → 4MS4W 22:46
PROVIDERS: ADMIT Hospitalist; ATTEND Hospitalist
DX: J20.9 Acute bronchitis, unspecified (principal); J98.11 Atelectasis; D63.8 Anemia in other chronic diseases classified elsewhere; E03.9 Hypothyroidism, unspecified; E11.22 Type 2 diabetes mellitus with diabetic chronic kidney disease; E78.5 Hyperlipidemia, unspecified; I12.9 Hypertensive chronic kidney disease with stage 1 through stage 4 chronic kidney disease, or unspecified chronic kidney disease; I25.10 Atherosclerotic heart disease of native coronary artery without angina pectoris; I25.5 Ischemic cardiomyopathy; M06.9 Rheumatoid arthritis, unspecified; M19.90 Unspecified osteoarthritis, unspecified site; N18.3 Chronic kidney disease, stage 3 (moderate); E87.5 Hyperkalemia; K44.9 Diaphragmatic hernia without obstruction or gangrene; M10.9 Gout, unspecified; T50.2X5A Adverse effect of carbonic-anhydrase inhibitors, benzothiadiazides and other diuretics, initial encounter; Z79.4 Long term (current) use of insulin; Z79.899 Other long term (current) drug therapy; Z79.82 Long term (current) use of aspirin; Z95.810 Presence of automatic (implantable) cardiac defibrillator; Z87.891 Personal history of nicotine dependence; Z86.73 Personal history of transient ischemic attack (TIA), and cerebral infarction without residual deficits; Z87.01 Personal history of pneumonia (recurrent); Z88.8 Allergy status to other drugs, medicaments and biological substances; Z88.1 Allergy status to other antibiotic agents; Z91.041 Radiographic dye allergy status; Z88.0 Allergy status to penicillin; Z91.013 Allergy to seafood; Y92.009 Unspecified place in unspecified non-institutional (private) residence as the place of occurrence of the external cause
CPT/HCPCS: 36415; 71046; 80053; 81003; 83605; 85025; 85610; 85730; 87040; 87086; 87502; 96374; 99291

== ENCOUNTER 2018-05-01 07:40 | Day surgery (SDC) | payer MEDICARE, BC ==
[2018-04-30 08:29] VITALS: BMI 27.6
[~2018-05-01 07:40] MED LIST changes: -ALPRAZolam 0.25 MG TAB PO PRN; -ALPRAZolam 0.5 MG TAB PO PRN; -ASPIRIN 325 MG TAB PO STA; -ATORVASTATIN 80 MG TAB PO STA; +LACTATED RINGERS 1,000 ML IV SCH; +LIDOCAINE 1% 20 ML VIAL (10MG/ML) FOR IV START INTRADERMA PRN; +MIDAZOLAM 2 MG/2 ML VIAL IV PRN; -NITROGLYCERIN SL TABS 0.4 MG TAB SUBLINGUAL PRN; -SODIUM CHLORIDE 0.9% 1,000 ML in EMPTY BAG 1 BAG IV ONE
[2018-05-01 08:09] VITALS: TEMP 97.8
[2018-05-01] MEDS ORDERED: LACTATED RINGERS 1,000 ML IV ONE (08:22)
[2018-05-01 08:55] LABS: Glucose,Whole Blood 93 mg/dL (75-99)
[2018-05-01] MEDS ORDERED: PROPOFOL 10 MG/ML 20 ML VIAL IV ONE (08:56)
[2018-05-01] MEDS ORDERED: LIDOCAINE 1% INJ 10MG/ML (20 ML MDV) ONE (08:56)
--- NOTE | 2018-05-01 09:48 | P.PCN ---
Date of Procedure: 05/01/18 Procedure(s) Performed: Procedures: 1. Esophagogastroduodenoscopy and biopsy. 2. Colonoscopy and polypectomy. Preoperative diagnosis: Hemoccult-positive stools, history of polyps, and chronic reflux symptoms. Postoperative diagnosis: 1. Small hiatal hernia with no obvious esophagitis or complicated reflux disease. 2. Mild antral gastritis. 3. Sigmoid diverticulosis with no evidence of acute diverticulitis or strictures. 4. Multiple small and diminutive polyps snared but no large polyps or cancer. 5. Low-grade internal hemorrhoids without bleeding at the time of this exam. Preparation: HalfLytely prep. Sedation: Was provided by anesthesia. Brief clinical history: The patient is a 78-year-old male who I have scheduled for this evaluation because of Hemoccult positive stools, history of polyps and chronic reflux symptoms. He denied alarm symptoms or overt bleeding. His last colonoscopy was around 5 years ago. He had no prior upper endoscopy. Procedure: With the patient on his left lateral decubitus position and after informed consent and adequate, I passed the Olympus-GIF 160 video upper endoscope through the cricopharyngeus down the esophagus. GE junction was around 42-43 cm from the incisors and there was a small sliding hiatal hernia but no obvious esophagitis or complicated reflux disease. The endoscope was then passed into the stomach which was insufflated with air and inspected in detail including the retroflex view in the cardia. There was some mottling and erythema in the antrum but no ulcers or erosions. Pyloric channel, duodenal bulb, post bulbar area and descending duodenum appeared within normal limits. Because of his history and symptoms, I obtained biopsies from the duodenum, antrum and esophagus then the endoscope was withdrawn and I proceeded to do colonoscopy. Perianal area did not show any fissures or fistulas. There were no masses felt on digital rectal examination. The Olympus CFQ 160L video colonoscope was then inserted in the rectum in the usual fashion and advanced to the cecum. There were multiple diverticular orifices seen scattered in the sigmoid but no evidence of acute diverticulitis or strictures. Multiple small and diminutive polyps were seen in the cecum, around the hepatic flexure and in the sigmoid which were snared and retrieved by suction but there were no large polyps or cancer. The mucosa appeared healthy. I retroflexed the endoscope in the rectum before the endoscope was withdrawn. Low-grade internal hemorrhoids were noted with no evidence of bleeding. The patient tolerated the procedure well. Plan: The patient was reassured. Discussed dietary measures and local care for hemorrhoids. He will follow up with you as planned and further plans can be made based on his course and biopsy results. I would be happy to see in the future if needed.
[2018-05-01 09:51] VITALS: RESP 18
[2018-05-01 09:55] LABS: Glucose,Whole Blood 95 mg/dL (75-99)
[2018-05-01 10:06] VITALS: BP 170/70; PULSE 70
--- NOTE | 2018-05-05 15:04 | CDI ---
Outpatient Documentation Clarification Form Date: 05/05/18 CDS/Building Superintendent Name: Emam Linda Phone: If any questions, call Heide Carrasco Realtime Reporter at [phone] Patient Name: Mark Diaz Admit Date: 05/01/18 Discharge Date: 05/01/18 ATTENTION: The [facility] Coding Staff appreciate your assistance in clarifying documentation. Please respond to the clarification below the line at the bottom and electronically sign. The [facility] Coding staff will review the response and follow-up if needed. Please note: Queries are made part of the Legal Health Record. If you have any questions, please contact the Realtime Reporter. Dear Dr. Tate, What is the source of the GI bleed? Multiple coding resources that we are required to follow, state that the physician should identify a source and the medical record coder may not assume. Thank you for your kind consideration. MTDD
== END 2018-05-01 10:40 | disposition home or self-care (01) ==
LOC: ORWHC2ENDO 07:40
DX: R19.5 Other fecal abnormalities (principal); D12.0 Benign neoplasm of cecum; D12.3 Benign neoplasm of transverse colon; D12.5 Benign neoplasm of sigmoid colon; K29.70 Gastritis, unspecified, without bleeding; K44.9 Diaphragmatic hernia without obstruction or gangrene; K57.30 Diverticulosis of large intestine without perforation or abscess without bleeding; K64.8 Other hemorrhoids; Z86.010 Personal history of colon polyps; I25.10 Atherosclerotic heart disease of native coronary artery without angina pectoris; E11.9 Type 2 diabetes mellitus without complications; I10 Essential (primary) hypertension; E78.5 Hyperlipidemia, unspecified; M06.9 Rheumatoid arthritis, unspecified; M10.9 Gout, unspecified; E07.9 Disorder of thyroid, unspecified; N19 Unspecified kidney failure; Z95.810 Presence of automatic (implantable) cardiac defibrillator; Z86.73 Personal history of transient ischemic attack (TIA), and cerebral infarction without residual deficits; Z79.890 Hormone replacement therapy; Z79.4 Long term (current) use of insulin; Z79.52 Long term (current) use of systemic steroids; Z79.899 Other long term (current) drug therapy; Z88.1 Allergy status to other antibiotic agents; Z88.8 Allergy status to other drugs, medicaments and biological substances; Z91.09 Other allergy status, other than to drugs and biological substances
CPT/HCPCS: 88305; 45385; 43239; J2001; J2704

== ENCOUNTER 2018-05-06 01:58 | Inpatient (IN) | payer MEDICARE, BC ==
[2018-05-06 02:43] LABS: Basophils # (A) 0.1 k/uL (0-0.2); Basophils % (A) 1 %; Eosinophils # (A) 0.6 k/uL (0-0.7); Eosinophils % (A) 4 %; HCT 23.7 % (39.0-53.0); Hypochromasia Slight; Lymphocytes # (A) 3.9 k/uL (1.0-4.8); Lymphocytes % (A) 28 %; MCH 27.6 pg (25.0-35.0); MCHC 32.3 g/dL (31.0-37.0); MCV 85.6 fL (80.0-100.0); Mean Platelet Volume 7.8; Monocytes % (A) 7 %; Neutrophils # (A) 8.2 k/uL (1.3-7.7); Neutrophils % (A) 58 %; Platelet Count 291 k/uL (150-450); RBC 2.77 m/uL (4.30-5.90); RDW 15.7 % (11.5-15.5); WBC 14.1 k/uL (3.8-10.6)
[2018-05-06 02:45] LABS: HGB 7.6 gm/dL (13.0-17.5)
[2018-05-06 02:57] LABS: Albumin 2.5 g/dL (3.5-5.0); Calcium 7.7 mg/dL (8.4-10.2); Potassium 4.2 mmol/L (3.5-5.1); Prothrombin Time 10.1 sec (9.0-12.0); Total Bilirubin 0.2 mg/dL (0.2-1.3); Total Protein 4.6 g/dL (6.3-8.2)
[2018-05-06 03:01] LABS: Partial Thromboplastin Time 21.5 sec (22.0-30.0)
[2018-05-06 03:12] LABS: Creatine Kinase MB 0.7 ng/mL (0.0-2.4); Troponin I 0.054 ng/mL (0.000-0.034)
[2018-05-06] MEDS ORDERED: NALOXONE 0.4 MG/ML 1 ML VIAL IV PRN (05:36)
[2018-05-06] MEDS: SODIUM CHLORIDE 0.9% 1,000 ML IV SCH ×2 (06:02→15:24)
--- NOTE | 2018-05-06 07:32 | ED ---
GI Bleed HPI - General Chief complaint: GI Bleed Stated complaint: GI BLEED Time Seen by Provider: 05/06/18 02:08 Source: patient Mode of arrival: EMS Limitations: no limitations - History of Present Illness Initial comments: This patient is a 78-year-old man who comes to be evaluated after he has had multiple episodes of painless rectal bleeding. Patient relates that he had upper and lower endoscopy performed on May 01, by Dr. Tate. He had been doing fairly well until about 7:00 yesterday when he went to have a bowel movement and noted there was red blood. Patient believes she has had approximately 10 bowel movements with some red blood associated. Again he is not having any abdominal or perianal pain. He finally decided to seek medical attention when he was starting to experience some generalized weakness as well as fatigue. He denies other symptoms of anemia, including no chest pain, dyspnea, diaphoresis, palpitations, or syncope. The patient denies taking any blood thinning medications other than an aspirin. MD complaint: gross hematochezia Onset/Timin -: days(s) Radiation: none Quality: painless Consistency: constant Improves with: none Worsens with: none Context: other (Recent endoscopy) Treatments Prior to Arrival: none - Related Data Home Medications Medication Instructions Recorded Confirmed Allopurinol 300 mg PO DAILY 05/31/16 05/06/18 Insulin Detemir [Levemir Flextouch] 30 units SQ HS 05/31/16 05/06/18 Pantoprazole Sodium 40 mg PO DAILY 05/31/16 05/06/18 Pravastatin Sodium 40 mg PO HS 05/31/16 05/06/18 Carvedilol [Coreg] 6.25 mg PO BID 01/09/17 05/06/18 Ascorbic Acid [Vitamin C] 500 mg PO DAILY 09/23/17 05/06/18 Cholecalciferol [Vitamin D3] 1,000 unit PO DAILY 09/23/17 05/06/18 Insulin Aspart [NovoLOG Flexpen] See Protocol SQ AC-TID 09/23/17 05/06/18 Levothyroxine Sodium [Synthroid] 50 mcg PO DAILY 03/27/18 05/06/18 predniSONE 5 mg PO DAILY 04/30/18 05/06/18 Gabapentin [Neurontin] 300 mg PO TID 05/06/18 05/06/18 Isosorbide Mononitrate [Isosorbide 30 mg PO DAILY 05/06/18 05/06/18 Mononitrate ER] hydrALAZINE HCL 25 mg PO BID 05/06/18 05/06/18 Previous Rx's Medication Instructions Recorded Aspirin EC [Ecotrin Low Dose] 81 mg PO DAILY #0 05/09/18 Allergies Allergy/AdvReac Type Severity Reaction Status Date / Time amlodipine Allergy Swelling Verified 05/06/18 07:35 doxycycline Allergy Anaphylaxis Verified 05/06/18 07:35 Iodinated Contrast- Oral and Allergy Anaphylaxis Verified 05/06/18 07:36 IV Dye iodine Allergy Rash/Hives Verified 05/06/18 07:35 metronidazole [From Flagyl] Allergy Rash/Hives Verified 05/06/18 07:35 shrimp Allergy Rash/Hives Verified 05/06/18 07:35 acarbose AdvReac Abdominal Verified 05/06/18 07:35 Pain amoxicillin trihydrate AdvReac Nausea & Verified 05/06/18 07:35 [From Augmentin] Vomiting potassium clavulanate AdvReac Nausea & Verified 05/06/18 07:35 [From Augmentin] Vomiting Review of Systems ROS Statement: Those systems with pertinent positive or pertinent negative responses have been documented in the HPI. ROS Other: All systems not noted in ROS Statement are negative. Constitutional: Reports: weakness. Denies: fever, chills Respiratory: Denies: cough, dyspnea Cardiovascular: Denies: chest pain, palpitations, edema, syncope Gastrointestinal: Reports: hematochezia. 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, CVA in 2005, hiatal hernia; recent pneumonia History of Any Multi-Drug Resistant Organisms: None Reported Past Surgical History: AICD, Back Surgery, Heart Catheterization, Pacemaker, Tonsillectomy Additional Past Surgical History / Comment(s): Biventricular AICD placement, back surgery 5, cardiac catheterization, tonsillectomy; colonoscopy Past Anesthesia/Blood Transfusion Reactions: No Reported Reaction Type of Cardiac Device: Permanent Pacemaker, AICD Device Placement Date:: 2016 Past Psychological History: No Psychological Hx Reported Smoking Status: Former smoker Past Alcohol Use History: Occasional Past Drug Use History: None Reported - Past Family History Mother Family Medical History: No Reported History Father History Unknown: Yes General Exam Limitations: no limitations General appearance: alert, in no apparent distress Head exam: Present: atraumatic, normocephalic Eye exam: Present: normal appearance. Absent: scleral icterus, conjunctival injection ENT exam: Present: normal oropharynx Respiratory exam: Present: normal lung sounds bilaterally. Absent: respiratory distress, wheezes, rales, rhonchi, stridor Cardiovascular Exam: Present: regular rate, normal rhythm, normal heart sounds. Absent: systolic murmur, diastolic murmur, rubs, gallop GI/Abdominal exam: Present: soft. Absent: distended, tenderness, guarding, rebound, mass Extremities exam: Present: normal inspection, normal capillary refill. Absent: pedal edema, calf tenderness Back exam: Present: normal inspection. Absent: CVA tenderness (R), CVA tenderness (L) Neurological exam: Present: alert Skin exam: Present: warm, dry, intact, normal color. Absent: rash Course Vital Signs 05/06/18 05/06/18 05/06/18 02:06 02:32 03:08 Temperature 97.5 F L Pulse Rate 73 63 Pulse Rate [ 70 Hotel Manager ] Pulse Rate [ Pulse Oximetery ] Respiratory 20 17 Rate Blood Pressure 146/76 140/47 Blood Pressure [Left Arm] O2 Sat by Pulse 92 L 100 Oximetry 05/06/18 05/06/18 05/06/18 03:36 05:13 06:02 Temperature Pulse Rate 66 74 72 Pulse Rate [ Hotel Manager ] Pulse Rate [ Pulse Oximetery ] Respiratory 15 16 18 Rate Blood Pressure 131/57 137/60 140/67 Blood Pressure [Left Arm] O2 Sat by Pulse 100 99 100 Oximetry 05/06/18 05/06/18 05/06/18 07:58 09:44 12:05 Temperature Pulse Rate 65 68 79 Pulse Rate [ Hotel Manager ] Pulse Rate [ Pulse Oximetery ] Respiratory 18 18 18 Rate Blood Pressure 150/68 161/88 132/57 Blood Pressure [Left Arm] O2 Sat by Pulse 97 98 97 Oximetry 05/06/18 05/06/18 05/06/18 13:54 15:13 15:14 Temperature 98 F 98.6 F Pulse Rate 85 81 Pulse Rate [ Hotel Manager ] Pulse Rate [ 80 Pulse Oximetery ] Respiratory 18 14 18 Rate Blood Pressure 129/52 134/64 Blood Pressure 138/54 [Left Arm] O2 Sat by Pulse 96 98 98 Oximetry 05/06/18 05/06/18 15:23 15:53 Temperature 97.1 F L 97.6 F Pulse Rate 74 60 Pulse Rate [ Hotel Manager ] Pulse Rate [ Pulse Oximetery ] Respiratory 14 14 Rate Blood Pressure 128/58 135/60 Blood Pressure [Left Arm] O2 Sat by Pulse 99 Oximetry Medical Decision Making - Lab Data Result diagrams: 05/09/18 07:12 05/09/18 07:12 Lab Results 05/06/18 05/06/18 05/06/18 Range/Units 02:23 02:23 02:23 WBC 14.1 H (3.8-10.6) k/uL RBC 2.77 L (4.30-5.90) m/uL Hgb 7.6 L D (13.0-17.5) gm/dL Hct 23.7 L (39.0-53.0) % MCV 85.6 (80.0-100.0) fL MCH 27.6 (25.0-35.0) pg MCHC 32.3 (31.0-37.0) g/dL RDW 15.7 H (11.5-15.5) % Plt Count 291 (150-450) k/uL Neutrophils % 58 % Lymphocytes % 28 % Monocytes % 7 % Eosinophils % 4 % Basophils % 1 % Neutrophils # 8.2 H (1.3-7.7) k/uL Lymphocytes # 3.9 (1.0-4.8) k/uL Monocytes # 1.0 (0-1.0) k/uL Eosinophils # 0.6 (0-0.7) k/uL Basophils # 0.1 (0-0.2) k/uL Hypochromasia Slight PT (9.0-12.0) sec INR (<1.2) APTT (22.0-30.0) sec Sodium 140 (137-145) mmol/L Potassium 4.2 (3.5-5.1) mmol/L Chloride 107 (98-107) mmol/L Carbon Dioxide 24 (22-30) mmol/L Anion Gap 9 mmol/L BUN 27 H (9-20) mg/dL Creatinine 1.80 H (0.66-1.25) mg/dL Est GFR (CKD-EPI)AfAm 40 (>60 ml/min/1.73 sqM) Est GFR (CKD-EPI)NonAf 35 (>60 ml/min/1.73 sqM) Glucose 164 H (74-99) mg/dL Plasma Lactic Acid Daljit (0.7-2.0) mmol/L Calcium 7.7 L (8.4-10.2) mg/dL Total Bilirubin 0.2 (0.2-1.3) mg/dL AST 14 L (17-59) U/L ALT 25 (21-72) U/L Alkaline Phosphatase 47 (38-126) U/L Total Creatine Kinase 45 L (55-170) U/L CK-MB (CK-2) 0.7 (0.0-2.4) ng/mL CK-MB (CK-2) Rel Index 1.6 Troponin I 0.054 H* (0.000-0.034) ng/mL Total Protein 4.6 L (6.3-8.2) g/dL Albumin 2.5 L (3.5-5.0) g/dL Blood Type Blood Type Recheck Antibody Screen Crossmatch Spec Expiration Date 05/06/18 05/06/18 05/06/18 Range/Units 02:23 02:23 05:30 WBC (3.8-10.6) k/uL RBC (4.30-5.90) m/uL Hgb (13.0-17.5) gm/dL Hct (39.0-53.0) % MCV (80.0-100.0) fL MCH (25.0-35.0) pg MCHC (31.0-37.0) g/dL RDW (11.5-15.5) % Plt Count (150-450) k/uL Neutrophils % % Lymphocytes % % Monocytes % % Eosinophils % % Basophils % % Neutrophils # (1.3-7.7) k/uL Lymphocytes # (1.0-4.8) k/uL Monocytes # (0-1.0) k/uL Eosinophils # (0-0.7) k/uL Basophils # (0-0.2) k/uL Hypochromasia PT 10.1 (9.0-12.0) sec INR 1.0 (<1.2) APTT 21.5 L (22.0-30.0) sec Sodium (137-145) mmol/L Potassium (3.5-5.1) mmol/L Chloride (98-107) mmol/L Carbon Dioxide (22-30) mmol/L Anion Gap mmol/L BUN (9-20) mg/dL Creatinine (0.66-1.25) mg/dL Est GFR (CKD-EPI)AfAm (>60 ml/min/1.73 sqM) Est GFR (CKD-EPI)NonAf (>60 ml/min/1.73 sqM) Glucose (74-99) mg/dL Plasma Lactic Acid Daljit 1.0 (0.7-2.0) mmol/L Calcium (8.4-10.2) mg/dL Total Bilirubin (0.2-1.3) mg/dL AST (17-59) U/L ALT (21-72) U/L Alkaline Phosphatase (38-126) U/L Total Creatine Kinase (55-170) U/L CK-MB (CK-2) (0.0-2.4) ng/mL CK-MB (CK-2) Rel Index Troponin I (0.000-0.034) ng/mL Total Protein (6.3-8.2) g/dL Albumin (3.5-5.0) g/dL Blood Type A Positive Blood Type Recheck CABO Indicated Antibody Screen NEGATIVE Crossmatch See Detail Spec Expiration Date 05/09/2018 7677 - EKG Data -: EKG Interpreted by Me EKG shows normal: intervals (Normal), ST-T waves (Normal) Rate: normal Interpretation: other (Paced rhythm, rate is approximately 72 bpm) Disposition Clinical Impression: GI bleed, Acute blood loss anemia, Elevated troponin Disposition: ADMITTED IP TO THIS [facility] Condition: Stable Is patient prescribed a controlled substance at d/c from ED?: No
[2018-05-06] MEDS ORDERED: LOSARTAN 25 MG TAB PO SCH (09:00)
[2018-05-06] MEDS ORDERED: TORSEMIDE 20 MG TAB PO SCH (09:00)
[2018-05-06] MEDS ORDERED: hydrALAZINE HCL 25 MG TAB PO SCH (09:00)
[2018-05-06] MEDS: INSULIN ASPART 100 UNIT/ML 1 ML 10 ML VIAL SQ SCH ×4 (09:43→21:22)
--- NOTE | 2018-05-06 09:43 | P.CONS ---
History of Present Illness - Reason for Consult Consult date: 05/06/18 GI bleed Requesting physician: Macy Back - 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 Patient has been experiencing bloody bowel movements for at least 2 weeks in duration a mixture of black/red in color. He underwent EGD colonoscopy evaluation on 05/01/2018 with findings of colonic diverticulosis snare polypectomy cecum, hepatic flexure, sigmoid with no evidence of peptic ulcer disease and small internal hemorrhoids. Patient states he did not bleed when taking his bowel prep however a few bowel movements post colonoscopy were rust colored burgundy in nature. Over the weekend he felt fairly well had a few small bowel movements again very little blood in them however yesterday he had increased abdominal discomfort with multiple episodes of gross bloody diarrhea red in color and presents to hospital for further evaluation. No history GI bleed. Home medications include low-dose aspirin. Admission hemoglobin 7.6. MCV 85. Platelet 291. INR 1.0. BUN 27. Creatinine 1.8. Diffuse abdominal discomfort across the mid to lower abdomen. No emesis fever or chills. Previous hemoglobin has averaged between 10-13 over the last 1-2 years. Last blood tinged bowel movement prior to midnight nursing described as small in nature small amounts of red-colored smears. Review of Systems Constitutional: Denies fever, chills, sweats, weight gain, or loss. HEENT: Negative for migraines, blurred vision or loss, earaches, drainage, tinnitus, oral mucosal lesions, dysphagia, or odynophagia. Cardiac: Negative for chest pain, arrhythmias, or palpitation. Respiratory: Negative for shortness of breath, hemoptysis, cough, or sputum production. Gastrointestinal: See HPI for pertinent findings. Genitourinary: Negative for hematuria, urgency, frequency, polyuria, dysuria, or penile discharge. Musculoskeletal: Negative for muscle aches, swelling, arthritis, and arthralgias. Neurologic: Negative for stroke or TIA. Endocrine: Negative for thyroid problems. Skin: Negative for rash or itching. 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, CVA in 2005, hiatal hernia; recent pneumonia History of Any Multi-Drug Resistant Organisms: None Reported Past Surgical History: AICD, Back Surgery, Heart Catheterization, Pacemaker, Tonsillectomy Additional Past Surgical History / Comment(s): Biventricular AICD placement, back surgery 5, cardiac catheterization, tonsillectomy; colonoscopy Past Anesthesia/Blood Transfusion Reactions: No Reported Reaction Type of Cardiac Device: Permanent Pacemaker, AICD Device Placement Date:: 2016 Past Psychological History: No Psychological Hx Reported Smoking Status: Former smoker Past Alcohol Use History: Occasional Past Drug Use History: None Reported - Past Family History Mother Family Medical History: No Reported History Father History Unknown: Yes Medications and Allergies Home Medications Medication Instructions Recorded Confirmed Type Allopurinol 300 mg PO DAILY 05/31/16 05/06/18 History Aspirin EC [Ecotrin Low Dose] 81 mg PO DAILY 05/31/16 05/06/18 History Insulin Detemir [Levemir Flextouch] 30 units SQ HS 05/31/16 05/06/18 History Pantoprazole Sodium 40 mg PO DAILY 05/31/16 05/06/18 History Pravastatin Sodium 40 mg PO HS 05/31/16 05/06/18 History Carvedilol [Coreg] 6.25 mg PO BID 01/09/17 05/06/18 History Losartan [Cozaar] 25 mg PO DAILY 01/09/17 05/06/18 History Ascorbic Acid [Vitamin C] 500 mg PO DAILY 09/23/17 05/06/18 History Cholecalciferol [Vitamin D3] 1,000 unit PO DAILY 09/23/17 05/06/18 History Insulin Aspart [NovoLOG Flexpen] See Protocol SQ AC-TID 09/23/17 05/06/18 History Levothyroxine Sodium [Synthroid] 50 mcg PO DAILY 03/27/18 05/06/18 History predniSONE 5 mg PO DAILY 04/30/18 05/06/18 History Gabapentin [Neurontin] 300 mg PO TID 05/06/18 05/06/18 History Isosorbide Mononitrate [Isosorbide 30 mg PO DAILY 05/06/18 05/06/18 History Mononitrate ER] Torsemide 10 mg PO DAILY 05/06/18 05/06/18 History hydrALAZINE HCL 25 mg PO BID 05/06/18 05/06/18 History Allergies Allergy/AdvReac Type Severity Reaction Status Date / Time amlodipine Allergy Swelling Verified 05/06/18 07:35 doxycycline Allergy Anaphylaxis Verified 05/06/18 07:35 Iodinated Contrast- Oral and Allergy Anaphylaxis Verified 05/06/18 07:36 IV Dye iodine Allergy Rash/Hives Verified 05/06/18 07:35 metronidazole [From Flagyl] Allergy Rash/Hives Verified 05/06/18 07:35 shrimp Allergy Rash/Hives Verified 05/06/18 07:35 acarbose AdvReac Abdominal Verified 05/06/18 07:35 Pain amoxicillin trihydrate AdvReac Nausea & Verified 05/06/18 07:35 [From Augmentin] Vomiting potassium clavulanate AdvReac Nausea & Verified 05/06/18 07:35 [From Augmentin] Vomiting Physical Exam Vitals: Vital Signs Temp Pulse Pulse Resp BP Pulse Ox 05/06/18 07:58 65 18 150/68 97 05/06/18 06:02 72 18 140/67 100 05/06/18 05:13 74 16 137/60 99 05/06/18 03:36 66 15 131/57 100 05/06/18 03:08 63 17 140/47 100 05/06/18 02:32 70 05/06/18 02:06 97.5 F L 73 20 146/76 92 L Intake and Output 05/05/18 05/06/18 05/06/18 22:59 06:59 14:59 Other: Weight 94.347 kg General appearance: The patient is alert, oriented, in no acute distress. HET: Head is normocephalic and atraumatic. Pupils are equal and reactive. Oropharynx is clear without lesions. Neck: Supple without lymphadenopathy. Trachea midline. Heart: S1 S2. Regular rate and rhythm. Lungs: No crackles or wheezes are heard. Abdomen: Soft, mild tenderness across the bilateral lower abdomen, nondistended with bowel sounds. No peritoneal signs. No palpable organomegaly or masses. Extremities: Normal skin color and turgor. No cyanosis, rash, ulceration, clubbing, or edema. Radial and pedal pulses are 2/4 bilaterally. Neurological: No focal deficits. Strength and sensation are grossly intact. Results CBC & Chem 7: 05/06/18 02:23 05/06/18 02:23 Labs: Abnormal Lab Results - Last 24 Hours (Table) 05/06/18 05/06/18 05/06/18 Range/Units 02:23 02:23 02:23 WBC 14.1 H (3.8-10.6) k/uL RBC 2.77 L (4.30-5.90) m/uL Hgb 7.6 L D (13.0-17.5) gm/dL Hct 23.7 L (39.0-53.0) % RDW 15.7 H (11.5-15.5) % Neutrophils # 8.2 H (1.3-7.7) k/uL APTT (22.0-30.0) sec BUN 27 H (9-20) mg/dL Creatinine 1.80 H (0.66-1.25) mg/dL Glucose 164 H (74-99) mg/dL Calcium 7.7 L (8.4-10.2) mg/dL AST 14 L (17-59) U/L Total Creatine Kinase 45 L (55-170) U/L Troponin I 0.054 H* (0.000-0.034) ng/mL Total Protein 4.6 L (6.3-8.2) g/dL Albumin 2.5 L (3.5-5.0) g/dL 05/06/18 Range/Units 02:23 WBC (3.8-10.6) k/uL RBC (4.30-5.90) m/uL Hgb (13.0-17.5) gm/dL Hct (39.0-53.0) % RDW (11.5-15.5) % Neutrophils # (1.3-7.7) k/uL APTT 21.5 L (22.0-30.0) sec BUN (9-20) mg/dL Creatinine (0.66-1.25) mg/dL Glucose (74-99) mg/dL Calcium (8.4-10.2) mg/dL AST (17-59) U/L Total Creatine Kinase (55-170) U/L Troponin I (0.000-0.034) ng/mL Total Protein (6.3-8.2) g/dL Albumin (3.5-5.0) g/dL Assessment and Plan (1) GI bleed Narrative/Plan: 78-year-old male with a history of rectal bleeding 2 weeks status post EGD colonoscopy 05/01/2018 with no evidence of peptic ulcer disease colonic diverticulosis snare polypectomy 3 cecum, hepatic flexure and sigmoid with internal hemorrhoids. Admitted with post colonoscopy rectal bleeding acute blood loss anemia most likely secondary to snare polypectomy exacerbated by aspirin therapy. Current Visit: Yes Status: Acute Code(s): K92.2 - GASTROINTESTINAL HEMORRHAGE, UNSPECIFIED SNOMED Code(s): 38887346 (2) Acute blood loss anemia Current Visit: Yes Status: Acute Code(s): D62 - ACUTE POSTHEMORRHAGIC ANEMIA SNOMED Code(s): 383654928 (3) Post-polypectomy bleeding Current Visit: Yes Status: Acute Code(s): BHP8484 - SNOMED Code(s): 513936967 (4) Status post colonoscopy with polypectomy Current Visit: Yes Status: Acute Code(s): Z98.890 - OTHER SPECIFIED POSTPROCEDURAL STATES SNOMED Code(s): 151023160959 Plan: 1. Hold aspirin. Clear liquids. CBC at noon if stable repeat in a.m. Repeat endoscopy not planned at this time we will follow closely with you. Thank you for this kind referral and the opportunity to participate in the care of your patient. This consultation was discussed with Dr. Thacker. The impression and plan of care have been directed as dictated.
[2018-05-06 09:44] LABS: Glucose,Whole Blood 135 mg/dL (75-99)
[2018-05-06] MEDS: LEVOTHYROXINE 50 MCG TAB PO SCH (09:46)
[2018-05-06] MEDS: GABAPENTIN 300 MG CAP PO SCH ×3 (09:46→22:01)
[2018-05-06] MEDS: CHOLECALCIFEROL 1,000 UNIT TAB PO SCH ×2 (09:47→12:15)
[2018-05-06] MEDS: CARVEDILOL 6.25 MG TAB PO SCH ×2 (09:48→15:30)
[2018-05-06] MEDS: ISOSORBIDE MONONITRATE ER 30 MG TAB.ER.24H PO SCH (09:48)
[2018-05-06] MEDS: PANTOPRAZOLE 40 MG/10 ML VIAL IV SCH (09:49)
[2018-05-06] MEDS: predniSONE 5 MG TAB PO SCH (09:52)
[2018-05-06 12:46] LABS: Basophils # (A) 0.1 k/uL (0-0.2); Basophils % (A) 0 %; Eosinophils # (A) 0.8 k/uL (0-0.7); Eosinophils % (A) 6 %; HCT 21.7 % (39.0-53.0); Hypochromasia Slight; Lymphocytes # (A) 3.5 k/uL (1.0-4.8); Lymphocytes % (A) 25 %; MCH 27.4 pg (25.0-35.0); MCV 85.7 fL (80.0-100.0); Mean Platelet Volume 8.1; Monocytes # (A) 0.9 k/uL (0-1.0); Monocytes % (A) 7 %; Neutrophils # (A) 8.3 k/uL (1.3-7.7); Neutrophils % (A) 60 %; Platelet Count 279 k/uL (150-450); RBC 2.54 m/uL (4.30-5.90); RDW 15.7 % (11.5-15.5); WBC 13.9 k/uL (3.8-10.6)
[2018-05-06 13:59] LABS: Glucose,Whole Blood 239 mg/dL (75-99)
--- NOTE | 2018-05-06 16:55 | P.HPIM ---
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 Patient has been experiencing bloody bowel movements for at least 2 weeks in duration a mixture of black/red in color. He underwent EGD colonoscopy evaluation on 05/01/2018 with findings of colonic diverticulosis snare polypectomy cecum, hepatic flexure, sigmoid with no evidence of peptic ulcer disease and small internal hemorrhoids. Patient states he did not bleed when taking his bowel prep however a few bowel movements post colonoscopy were rust colored burgundy in nature. Over the weekend he felt fairly well had a few small bowel movements again very little blood in them however yesterday he had increased abdominal discomfort with multiple episodes of gross bloody diarrhea red in color and presents to hospital for further evaluation. Patient doesn't have any more stools since his hospitalization. Patient was evaluated by gastroenterology. Patient aspirin is being held. Patient is complaining of severe lightheadedness, patient's creatinine is elevated to 1.8 baseline is around 1.4. Diuretic therapy will be held ARB will be held, IV fluids will be continued patient's hemoglobin is around 7 considering his acute bleed and symptoms patient received 1 unit of blood transfusion. Review of Systems REVIEW OF SYSTEMS: CONSTITUTIONAL: No fever, no malaise, no fatigue. HEENT: No recent visual problems or hearing problems. Denied any sore throat. CARDIOVASCULAR: No chest pain, orthopnea, PND, no palpitations, no syncope. PULMONARY: No shortness of breath, no cough, no hemoptysis. GASTROINTESTINAL: As mentioned in HPI NEUROLOGICAL: No headaches, no weakness, no numbness. HEMATOLOGICAL: Denies any bleeding or petechiae. GENITOURINARY: Denies any burning micturition, frequency, or urgency. MUSCULOSKELETAL/RHEUMATOLOGICAL: Denies any joint pain, swelling, or any muscle pain. ENDOCRINE: Denies any polyuria or polydipsia. The rest of the 14-point review of systems is negative. Past Medical History Past Medical History: Coronary Artery Disease (CAD), CVA/TIA, Diabetes Mellitus , GERD/Reflux, Hyperlipidemia, Hypertension, Musculoskeletal Disorder, Pneumonia , Renal Disease, Rheumatoid Arthritis (RA), Thyroid Disorder Additional Past Medical History / Comment(s): IDDM type II, ischemic cardiomyopathy, CHB with pacer, bronchitis, chronic renal disease stage III, chronic hyperkalemia, DJD, chronic low back pain, gout R foot at times, hiatal hernia, diverticulosis, colon benign polyp, hypothyroid. History of Any Multi-Drug Resistant Organisms: None Reported Past Surgical History: AICD, Back Surgery, Heart Catheterization, Orthopedic Surgery, Pacemaker, Tonsillectomy Additional Past Surgical History / Comment(s): Biventricular AICD placement/ pacemaker, back surgery 5, EGD recently done 05/01/18, colonoscopies with polypectomy most recently done on 05/01/18, 5 back surgeries. Past Anesthesia/Blood Transfusion Reactions: No Reported Reaction Type of Cardiac Device: Permanent Pacemaker, AICD Device Placement Date:: 2014 Smoking Status: Former smoker - Past Family History Mother Family Medical History: No Reported History Father History Unknown: Yes Family Medical History: No Reported History Additional Family Medical History / Comment(s): Father was healthy and lived to be 88yrs old. Medications and Allergies Home Medications Medication Instructions Recorded Confirmed Type Allopurinol 300 mg PO DAILY 05/31/16 05/06/18 History Aspirin EC [Ecotrin Low Dose] 81 mg PO DAILY 05/31/16 05/06/18 History Insulin Detemir [Levemir Flextouch] 30 units SQ HS 05/31/16 05/06/18 History Pantoprazole Sodium 40 mg PO DAILY 05/31/16 05/06/18 History Pravastatin Sodium 40 mg PO HS 05/31/16 05/06/18 History Carvedilol [Coreg] 6.25 mg PO BID 01/09/17 05/06/18 History Losartan [Cozaar] 25 mg PO DAILY 01/09/17 05/06/18 History Ascorbic Acid [Vitamin C] 500 mg PO DAILY 09/23/17 05/06/18 History Cholecalciferol [Vitamin D3] 1,000 unit PO DAILY 09/23/17 05/06/18 History Insulin Aspart [NovoLOG Flexpen] See Protocol SQ AC-TID 09/23/17 05/06/18 History Levothyroxine Sodium [Synthroid] 50 mcg PO DAILY 03/27/18 05/06/18 History predniSONE 5 mg PO DAILY 04/30/18 05/06/18 History Gabapentin [Neurontin] 300 mg PO TID 05/06/18 05/06/18 History Isosorbide Mononitrate [Isosorbide 30 mg PO DAILY 05/06/18 05/06/18 History Mononitrate ER] Torsemide 10 mg PO DAILY 05/06/18 05/06/18 History hydrALAZINE HCL 25 mg PO BID 05/06/18 05/06/18 History Allergies Allergy/AdvReac Type Severity Reaction Status Date / Time amlodipine Allergy Swelling Verified 05/06/18 07:35 doxycycline Allergy Anaphylaxis Verified 05/06/18 07:35 Iodinated Contrast- Oral and Allergy Anaphylaxis Verified 05/06/18 07:36 IV Dye iodine Allergy Rash/Hives Verified 05/06/18 07:35 metronidazole [From Flagyl] Allergy Rash/Hives Verified 05/06/18 07:35 shrimp Allergy Rash/Hives Verified 05/06/18 07:35 acarbose AdvReac Abdominal Verified 05/06/18 07:35 Pain amoxicillin trihydrate AdvReac Nausea & Verified 05/06/18 07:35 [From Augmentin] Vomiting potassium clavulanate AdvReac Nausea & Verified 05/06/18 07:35 [From Augmentin] Vomiting Physical Exam Vitals: Vital Signs Temp Pulse Pulse Pulse Resp BP BP 05/06/18 15:53 97.6 F 60 14 135/60 05/06/18 15:23 97.1 F L 74 14 128/58 05/06/18 15:14 98.6 F 80 18 138/54 05/06/18 15:13 98 F 81 14 134/64 05/06/18 13:54 85 18 129/52 05/06/18 12:05 79 18 132/57 05/06/18 09:44 68 18 161/88 05/06/18 07:58 65 18 150/68 05/06/18 06:02 72 18 140/67 05/06/18 05:13 74 16 137/60 05/06/18 03:36 66 15 131/57 05/06/18 03:08 63 17 140/47 05/06/18 02:32 70 05/06/18 02:06 97.5 F L 73 20 146/76 Pulse Ox 05/06/18 15:53 99 05/06/18 15:23 05/06/18 15:14 98 05/06/18 15:13 98 05/06/18 13:54 96 05/06/18 12:05 97 05/06/18 09:44 98 05/06/18 07:58 97 05/06/18 06:02 100 05/06/18 05:13 99 05/06/18 03:36 100 05/06/18 03:08 100 05/06/18 02:32 05/06/18 02:06 92 L Intake and Output 05/06/18 05/06/18 05/06/18 06:59 14:59 22:59 Intake Total 0 Balance 0 Intake: Blood Product 0 Rc As-1 Unit 0 [id number] Other: Voiding Method Toilet Weight 94.347 kg PHYSICAL EXAMINATION: GENERAL: The patient is alert and oriented x3, not in any acute distress. Well developed, well nourished. HEENT: Pupils are round and equally reacting to light. EOMI. No scleral icterus. Does have conjunctival pallor. Normocephalic, atraumatic. No pharyngeal erythema. No thyromegaly. CARDIOVASCULAR: S1 and S2 present. No murmurs, rubs, or gallops. PULMONARY: Chest is clear to auscultation, no wheezing or crackles. ABDOMEN: Soft, nontender, nondistended, normoactive bowel sounds. No palpable organomegaly. MUSCULOSKELETAL: No joint swelling or deformity. EXTREMITIES: No cyanosis, clubbing, or pedal edema. NEUROLOGICAL: Gross neurological examination did not reveal any focal deficits. SKIN: No rashes. Results CBC & Chem 7: 05/06/18 11:59 05/06/18 02:23 Labs: Abnormal Lab Results - Last 24 Hours (Table) 05/06/18 05/06/18 05/06/18 Range/Units 02:23 02:23 02:23 WBC 14.1 H (3.8-10.6) k/uL RBC 2.77 L (4.30-5.90) m/uL Hgb 7.6 L D (13.0-17.5) gm/dL Hct 23.7 L (39.0-53.0) % RDW 15.7 H (11.5-15.5) % Neutrophils # 8.2 H (1.3-7.7) k/uL Eosinophils # (0-0.7) k/uL APTT (22.0-30.0) sec BUN 27 H (9-20) mg/dL Creatinine 1.80 H (0.66-1.25) mg/dL Glucose 164 H (74-99) mg/dL POC Glucose (mg/dL) (75-99) mg/dL Calcium 7.7 L (8.4-10.2) mg/dL AST 14 L (17-59) U/L Total Creatine Kinase 45 L (55-170) U/L Troponin I 0.054 H* (0.000-0.034) ng/mL Total Protein 4.6 L (6.3-8.2) g/dL Albumin 2.5 L (3.5-5.0) g/dL Crossmatch 05/06/18 05/06/18 05/06/18 Range/Units 02:23 02:23 09:42 WBC (3.8-10.6) k/uL RBC (4.30-5.90) m/uL Hgb (13.0-17.5) gm/dL Hct (39.0-53.0) % RDW (11.5-15.5) % Neutrophils # (1.3-7.7) k/uL Eosinophils # (0-0.7) k/uL APTT 21.5 L (22.0-30.0) sec BUN (9-20) mg/dL Creatinine (0.66-1.25) mg/dL Glucose (74-99) mg/dL POC Glucose (mg/dL) 135 H (75-99) mg/dL Calcium (8.4-10.2) mg/dL AST (17-59) U/L Total Creatine Kinase (55-170) U/L Troponin I (0.000-0.034) ng/mL Total Protein (6.3-8.2) g/dL Albumin (3.5-5.0) g/dL Crossmatch See Detail 05/06/18 05/06/18 Range/Units 11:59 13:43 WBC 13.9 H (3.8-10.6) k/uL RBC 2.54 L (4.30-5.90) m/uL Hgb 7.0 L* (13.0-17.5) gm/dL Hct 21.7 L (39.0-53.0) % RDW 15.7 H (11.5-15.5) % Neutrophils # 8.3 H (1.3-7.7) k/uL Eosinophils # 0.8 H (0-0.7) k/uL APTT (22.0-30.0) sec BUN (9-20) mg/dL Creatinine (0.66-1.25) mg/dL Glucose (74-99) mg/dL POC Glucose (mg/dL) 239 H (75-99) mg/dL Calcium (8.4-10.2) mg/dL AST (17-59) U/L Total Creatine Kinase (55-170) U/L Troponin I (0.000-0.034) ng/mL Total Protein (6.3-8.2) g/dL Albumin (3.5-5.0) g/dL Crossmatch Thrombosis Risk Factor Assmnt - Choose All That Apply Any of the Below Risk Factors Present?: Yes Each Factor Represents 1 point: Obesity (BMI >25) Other Risk Factors: Yes Each Risk Factor Represents 3 Points: Age 75 years or older Other congenital or acquired thrombophilia - If yes, enter type in comment: No Thrombosis Risk Factor Assessment Total Risk Factor Score: 4 Thrombosis Risk Factor Assessment Level: Moderate Risk Assessment and Plan Plan: -Symptomatic anemia, acute blood loss anemia from probably lower GI bleed: Blood transfusion is on mentioned above, hold off diuretic therapy patient had normal ejection fraction the past, hold off on losartan. Antiplatelet therapy is being held. Patient appears to have post polypectomy bleeding -CVA TIA in the past -Gastroesophageal reflux disease -Type 2 diabetes mellitus -Hypertension -Renal failure: Patient appears to chronic kidney disease stage III with some acute renal failure secondary to excessive diuretic therapy, GI bleed and losartan all of which are being held. -Hypothyroidism continue with levothyroxine Patient has an AICD
[2018-05-06 17:29] LABS: Glucose,Whole Blood 200 mg/dL (75-99)
[2018-05-06 19:00] LABS: Basophils % (A) 0 %; Eosinophils # (A) 0.4 k/uL (0-0.7); Eosinophils % (A) 3 %; HCT 24.3 % (39.0-53.0); HGB 7.7 gm/dL (13.0-17.5); Hypochromasia Slight; Lymphocytes # (A) 2.8 k/uL (1.0-4.8); Lymphocytes % (A) 22 %; MCHC 31.6 g/dL (31.0-37.0); MCV 85.4 fL (80.0-100.0); Mean Platelet Volume 8.1; Monocytes # (A) 0.6 k/uL (0-1.0); Monocytes % (A) 5 %; Neutrophils # (A) 8.6 k/uL (1.3-7.7); Neutrophils % (A) 68 %; Platelet Count 269 k/uL (150-450); RBC 2.85 m/uL (4.30-5.90); RDW 15.6 % (11.5-15.5); WBC 12.7 k/uL (3.8-10.6)
[2018-05-06 19:11] LABS: Ionized Calcium 4.9 mg/dL (4.5-5.3)
[2018-05-06 19:18] LABS: Magnesium 1.8 mg/dL (1.6-2.3); Phosphorus 3.7 mg/dL (2.5-4.5)
[2018-05-06 19:50] LABS: Glucose,Whole Blood 190 mg/dL (75-99)
[2018-05-06] MEDS ORDERED: Magnesium Replacement Protocol 1 EACH MISC MISCELLANE PRN (21:39)
[2018-05-06] MEDS: PRAVASTATIN SODIUM 40 MG TAB PO SCH (22:00)
[2018-05-06] MEDS: MAGNESIUM SULFATE-D5W PMX 1 GM in DEXTROSE/WATER 1 100ML.BAG IVPB SCH ×2 (22:02→23:30)
[2018-05-07] MEDS: SODIUM CHLORIDE 0.9% 1,000 ML IV SCH ×3 (01:45→21:16)
[2018-05-07 06:04] LABS: Magnesium 2.4 mg/dL (1.6-2.3); Phosphorus 3.9 mg/dL (2.5-4.5); Potassium 4.5 mmol/L (3.5-5.1)
[2018-05-07 06:06] LABS: Basophils # (A) 0.1 k/uL (0-0.2); Basophils % (A) 0 %; Eosinophils # (A) 0.9 k/uL (0-0.7); Eosinophils % (A) 7 %; HCT 24.1 % (39.0-53.0); HGB 7.7 gm/dL (13.0-17.5); Hypochromasia Slight; Lymphocytes # (A) 4.2 k/uL (1.0-4.8); Lymphocytes % (A) 30 %; MCH 27.2 pg (25.0-35.0); MCHC 31.7 g/dL (31.0-37.0); MCV 85.8 fL (80.0-100.0); Mean Platelet Volume 7.9; Monocytes # (A) 0.9 k/uL (0-1.0); Monocytes % (A) 7 %; Neutrophils # (A) 7.8 k/uL (1.3-7.7); Neutrophils % (A) 55 %; Platelet Count 259 k/uL (150-450); RBC 2.81 m/uL (4.30-5.90); RDW 15.5 % (11.5-15.5); WBC 14.1 k/uL (3.8-10.6)
[2018-05-07] MEDS: CARVEDILOL 6.25 MG TAB PO SCH ×2 (08:36→17:36)
[2018-05-07] MEDS: LEVOTHYROXINE 50 MCG TAB PO SCH (08:36)
[2018-05-07] MEDS: INSULIN ASPART 100 UNIT/ML 1 ML 10 ML VIAL SQ SCH ×4 (08:37→21:16)
[2018-05-07] MEDS: PANTOPRAZOLE 40 MG/10 ML VIAL IV SCH (08:37)
[2018-05-07] MEDS: ISOSORBIDE MONONITRATE ER 30 MG TAB.ER.24H PO SCH (08:37)
[2018-05-07] MEDS: predniSONE 5 MG TAB PO SCH (08:37)
[2018-05-07] MEDS: GABAPENTIN 300 MG CAP PO SCH ×3 (08:37→21:16)
--- NOTE | 2018-05-07 09:41 | P.CNPUL ---
History of Present Illness Consult date: 05/07/18 Requesting physician: Macy Back Reason for consult: other Chief complaint: Lower GI bleed, bright red stools History of present illness: Mr. Diaz is a 78-year-old white male patient presented to the emergency department on 05/06/2018 at 01 58 with complaints of multiple episodes of painless bright red blood bleeding per rectum. Patient had some weakness, but denied any chest pain or dyspnea. Denied any lightheadedness or dizziness. Patient was recently had upper and lower endoscopy done on 05/01/[address] Biggs. EGD and colonoscopy revealed small hiatal hernia was no esophagitis or complicated reflux disease, mild antral gastritis. Sigmoid diverticulosis with no evidence of acute diverticulitis of strictures, multiple polyps worsening ear , but no large polyps or cancers lesions were noted. There were low-grade internal hemorrhoids without bleeding. Patient was discharged home in stable condition, and was doing relatively well, until he developed the above- mentioned symptoms. Lab work showed hemoglobin of 7.6 on admission, white count of 14.1, platelet count of 291, INR is 1.0, electrolytes were within normal limits, B1 is 27, creatinine is 1.8. Patient had mildly elevated troponin 0.054. EKG showed paced rhythm without acute ischemic changes. Today' s hemoglobin is 7.0, patient had a large bright red stool last night, and again this morning. Patient had 10 or 12 episodes of bright red stools at home. He was started on IV Protonix, maintenance IV fluids are 0.9 at a rate of 100 ML per hour. He was evaluated by GI service, serial H&H's are being drawn, he remained hemodynamically stable, he did receive 2 units of blood this admission. Other medical history includes diabetes mellitus type 2, hypertension, hyperlipidemia, COPD, CVA, chronic renal failure, sick sinus syndrome status post pacemaker implantation, diverticulosis. Patient denies any EtOH abuse, only a social drinker. Remains nothing by mouth, it is possible the source of his bleeding is the polypectomy sites. Denies any acute distress at the time of my evaluation, and is requesting to go home today. He will be kept in the ICU for the most part of the day to monitor for any ongoing bleeding or hemodynamic instability. Review of Systems All systems: negative Constitutional: Denies chills, Denies fever Eyes: denies blurred vision, denies pain Ears, nose, mouth and throat: Denies headache, Denies sore throat Cardiovascular: Denies chest pain, Denies shortness of breath Respiratory: Denies cough Gastrointestinal: Reports change in bowel habits, Reports hematochezia, Denies abdominal pain, Denies diarrhea, Denies nausea, Denies vomiting Musculoskeletal: Denies myalgias Integumentary: Denies pruritus, Denies rash Neurological: Denies numbness, Denies weakness Psychiatric: Denies anxiety, Denies depression Endocrine: Denies fatigue, Denies weight change Past Medical History Past Medical History: Coronary Artery Disease (CAD), CVA/TIA, Diabetes Mellitus , GERD/Reflux, Hyperlipidemia, Hypertension, Musculoskeletal Disorder, Pneumonia , Renal Disease, Rheumatoid Arthritis (RA), Thyroid Disorder Additional Past Medical History / Comment(s): IDDM type II, ischemic cardiomyopathy, CHB with pacer, bronchitis, chronic renal disease stage III, chronic hyperkalemia, DJD, chronic low back pain, gout R foot at times, hiatal hernia, diverticulosis, colon benign polyp, hypothyroid. History of Any Multi-Drug Resistant Organisms: None Reported Past Surgical History: AICD, Back Surgery, Heart Catheterization, Orthopedic Surgery, Pacemaker, Tonsillectomy Additional Past Surgical History / Comment(s): Biventricular AICD placement/ pacemaker, back surgery 5, EGD recently done 05/01/18, colonoscopies with polypectomy most recently done on 05/01/18, 5 back surgeries. Past Anesthesia/Blood Transfusion Reactions: No Reported Reaction Type of Cardiac Device: Permanent Pacemaker, AICD Device Placement Date:: 2014 Smoking Status: Former smoker - Past Family History Mother Family Medical History: No Reported History Father History Unknown: Yes Family Medical History: No Reported History Additional Family Medical History / Comment(s): Father was healthy and lived to be 88yrs old. Medications and Allergies Home Medications Medication Instructions Recorded Confirmed Type Allopurinol 300 mg PO DAILY 05/31/16 05/06/18 History Aspirin EC [Ecotrin Low Dose] 81 mg PO DAILY 05/31/16 05/06/18 History Insulin Detemir [Levemir Flextouch] 30 units SQ HS 05/31/16 05/06/18 History Pantoprazole Sodium 40 mg PO DAILY 05/31/16 05/06/18 History Pravastatin Sodium 40 mg PO HS 05/31/16 05/06/18 History Carvedilol [Coreg] 6.25 mg PO BID 01/09/17 05/06/18 History Losartan [Cozaar] 25 mg PO DAILY 01/09/17 05/06/18 History Ascorbic Acid [Vitamin C] 500 mg PO DAILY 09/23/17 05/06/18 History Cholecalciferol [Vitamin D3] 1,000 unit PO DAILY 09/23/17 05/06/18 History Insulin Aspart [NovoLOG Flexpen] See Protocol SQ AC-TID 09/23/17 05/06/18 History Levothyroxine Sodium [Synthroid] 50 mcg PO DAILY 03/27/18 05/06/18 History predniSONE 5 mg PO DAILY 04/30/18 05/06/18 History Gabapentin [Neurontin] 300 mg PO TID 05/06/18 05/06/18 History Isosorbide Mononitrate [Isosorbide 30 mg PO DAILY 05/06/18 05/06/18 History Mononitrate ER] Torsemide 10 mg PO DAILY 05/06/18 05/06/18 History hydrALAZINE HCL 25 mg PO BID 05/06/18 05/06/18 History Allergies Allergy/AdvReac Type Severity Reaction Status Date / Time amlodipine Allergy Swelling Verified 05/06/18 07:35 doxycycline Allergy Anaphylaxis Verified 05/06/18 07:35 Iodinated Contrast- Oral and Allergy Anaphylaxis Verified 05/06/18 07:36 IV Dye iodine Allergy Rash/Hives Verified 05/06/18 07:35 metronidazole [From Flagyl] Allergy Rash/Hives Verified 05/06/18 07:35 shrimp Allergy Rash/Hives Verified 05/06/18 07:35 acarbose AdvReac Abdominal Verified 05/06/18 07:35 Pain amoxicillin trihydrate AdvReac Nausea & Verified 05/06/18 07:35 [From Augmentin] Vomiting potassium clavulanate AdvReac Nausea & Verified 05/06/18 07:35 [From Augmentin] Vomiting Physical Exam Vitals: Vital Signs Temp Pulse Pulse Resp BP BP Pulse Ox 05/07/18 09:00 78 50 H 145/64 96 05/07/18 08:00 98.1 F 68 13 149/67 98 05/07/18 07:00 60 14 137/68 99 05/07/18 06:00 67 20 149/73 99 05/07/18 05:00 60 16 146/52 97 05/07/18 04:00 98.5 F 63 16 132/53 98 05/07/18 03:00 62 16 128/56 100 05/07/18 02:00 60 16 118/61 100 05/07/18 01:00 72 23 148/63 91 L 05/07/18 00:00 98.2 F 69 16 169/77 92 L 05/06/18 23:00 69 17 179/85 89 L 05/06/18 22:46 97.9 F 74 20 179/85 97 05/06/18 22:00 71 35 H 166/57 94 L 05/06/18 21:14 98.2 F 78 16 160/71 94 L 05/06/18 21:00 79 25 H 153/31 92 L 05/06/18 20:44 98.1 F 81 20 161/65 93 L 05/06/18 20:34 98.3 F 78 23 138/64 93 L 05/06/18 20:24 98.2 F 79 16 158/85 93 L 05/06/18 20:15 89 24 145/67 95 05/06/18 20:00 98.3 F 72 20 157/70 92 L 05/06/18 18:10 97.8 F 83 18 137/84 96 05/06/18 17:10 97.4 F L 74 14 142/63 05/06/18 15:53 97.6 F 60 14 135/60 99 05/06/18 15:23 97.1 F L 74 14 128/58 05/06/18 15:14 98.6 F 80 18 138/54 98 05/06/18 15:13 98 F 81 14 134/64 98 05/06/18 13:54 85 18 129/52 96 05/06/18 12:05 79 18 132/57 97 05/06/18 09:44 68 18 161/88 98 Intake and Output 05/06/18 05/07/18 05/07/18 22:59 06:59 14:59 Intake Total 1930 800 300 Output Total 200 600 Balance 1730 200 300 Intake: IV 300 800 300 Magnesium Sulfate-D5w Pmx 100 100 1 gm In Dextrose/Water 1 100ml.bag @ 100 mls/hr IVPB Q1H PATTI Rx#: [id number] Sodium Chloride 0.9% 1, 200 700 300 000 ml @ 100 mls/hr IV . Q10H PATTI Rx#:[id number] Oral 700 Blood Product 930 As-1 Unit 310 [id number] Rc As-1 Unit 310 [id number] Output: Urine 200 600 Other: Voiding Method Bedside Commode Bedside Commode Bedside Commode Urinal # Voids 0 1 # Bowel Movements 1 Weight 89.8 kg 89.8 kg 89.8 kg - Constitutional General appearance: average body habitus, no acute distress - EENT Eyes: PERRLA ENT: NA/AT Ears: bilateral: normal - Neck Neck: no lymphadenopathy, normal ROM Carotids: bilateral: upstroke normal Thyroid: bilateral: normal size - Respiratory Respiratory: bilateral: CTA - Cardiovascular Rhythm: irregularly irregular Heart sounds: normal: S1, S2 - Gastrointestinal General gastrointestinal: no organomegaly, soft, no tenderness - Integumentary Integumentary: normal turgor - Neurologic Neurologic: CNII-XII intact - Musculoskeletal Musculoskeletal: gait normal, generalized weakness Results - Laboratory Findings CBC and BMP: 05/07/18 05:29 05/07/18 05:29 PT/INR, D-dimer PT 10.1 sec (9.0-12.0) 05/06/18 02:23 INR 1.0 (<1.2) 05/06/18 02:23 Abnormal lab findings: Abnormal Labs 05/06/18 05/06/18 05/06/18 02:23 02:23 02:23 WBC 14.1 H RBC 2.77 L Hgb 7.6 L D Hct 23.7 L RDW 15.7 H Neutrophils # 8.2 H Eosinophils # APTT BUN 27 H Creatinine 1.80 H Glucose 164 H POC Glucose (mg/dL) Calcium 7.7 L Magnesium AST 14 L Total Creatine Kinase 45 L Troponin I 0.054 H* Total Protein 4.6 L Albumin 2.5 L Crossmatch 05/06/18 05/06/18 05/06/18 02:23 02:23 09:42 WBC RBC Hgb Hct RDW Neutrophils # Eosinophils # APTT 21.5 L BUN Creatinine Glucose POC Glucose (mg/dL) 135 H Calcium Magnesium AST Total Creatine Kinase Troponin I Total Protein Albumin Crossmatch See Detail 05/06/18 05/06/18 05/06/18 11:59 13:43 17:26 WBC 13.9 H RBC 2.54 L Hgb 7.0 L* Hct 21.7 L RDW 15.7 H Neutrophils # 8.3 H Eosinophils # 0.8 H APTT BUN Creatinine Glucose POC Glucose (mg/dL) 239 H 200 H Calcium Magnesium AST Total Creatine Kinase Troponin I Total Protein Albumin Crossmatch 05/06/18 05/06/18 05/07/18 18:11 19:48 05:29 WBC 12.7 H 14.1 H RBC 2.85 L 2.81 L Hgb 7.7 L 7.7 L Hct 24.3 L 24.1 L RDW 15.6 H Neutrophils # 8.6 H 7.8 H Eosinophils # 0.9 H APTT BUN Creatinine Glucose POC Glucose (mg/dL) 190 H Calcium Magnesium AST Total Creatine Kinase Troponin I Total Protein Albumin Crossmatch 05/07/18 05:29 WBC RBC Hgb Hct RDW Neutrophils # Eosinophils # APTT BUN 25 H Creatinine 1.40 H Glucose 109 H POC Glucose (mg/dL) Calcium 8.0 L Magnesium 2.4 H AST Total Creatine Kinase Troponin I Total Protein Albumin Crossmatch - Diagnostic Findings Additional studies: 12 EKG reviewed Assessment and Plan Plan: Assessment: #1. Acute blood loss anemia secondary to lower GI bleeding, and the source of bleeding suspected to be the previous polypectomy sites. Patient has been transfused with 2 units of PRBCs for hemoglobin of 7.0 #2. Weakness, lightheadedness cleared to above #3. Recent upper and lower endoscopy on 05/01/2018 revealing small hiatal hernia was no esophagitis or complicated reflux disease, mild antral gastritis. Sigmoid diverticulosis with no evidence of acute diverticulitis of strictures , multiple polyps worsening ear, but no large polyps or cancers lesions were noted. There were low-grade internal hemorrhoids without bleeding. #4. Mild troponin leak, patient denies any chest pain, dyspnea, EKG showed no evidence of acute ischemic changes. #5. History of ischemic cardiomyopathy, with permanent pacemaker/AICD implant #6. Diabetes mellitus type 2 #7. Chronic kidney disease #8. COPD, stable Plan: Continue IV Protonix, continue IV 0.9 normal saline at a rate of 100 ML per hour , repeat hemoglobin this morning, patient is having ongoing bright red bleeding per rectum. GI service is following. Continue clear liquid diet. Continue to follow I performed a history & physical examination of the patient and discussed their management with my nurse practitioner, Elissa Arboleda. I reviewed the nurse practitioner's note and agree with the documented findings and plan of care. Lung sounds are clear. The findings and the impression was discussed with the patient. I attest to the documentation by the nurse practitioner. Time with Patient: Greater than 30
--- NOTE | 2018-05-07 10:28 | P.PN ---
Subjective Progress Note Date: 05/07/18 Principal diagnosis: Rectal bleeding 78-year-old male limited with rectal bleeding suspect post-polypectomy in nature. Patient had 2 small bowel movements last night on the general medical floor there were red blood tinged transfer to the ICU for further monitoring. He received a total of 2 units of blood since admission. Denies abdominal pain. No emesis. Hemoglobin 7.7. Objective - Vital Signs Vital signs: Vital Signs Temp 98.1 F 05/07/18 08:00 Pulse 78 05/07/18 09:00 Resp 50 H 05/07/18 09:00 BP 145/64 05/07/18 09:00 Pulse Ox 96 05/07/18 09:00 Intake & Output 05/06/18 05/07/18 05/07/18 18:59 06:59 18:59 Intake Total 310 2420 300 Output Total 800 Balance 310 1620 300 Weight 89.8 kg 89.8 kg Intake: IV 1100 300 Magnesium Sulfate-D5w Pmx 200 1 gm In Dextrose/Water 1 100ml.bag @ 100 mls/hr IVPB Q1H PATTI Rx#: [id number] Sodium Chloride 0.9% 1, 900 300 000 ml @ 100 mls/hr IV . Q10H PATTI Rx#:[id number] Oral 700 Blood Product 310 620 Rc As-1 Unit 310 [id number] Rc As-1 Unit 310 [id number] Output: Urine 800 Other: Voiding Method Toilet Bedside Commode Bedside Commode Urinal # Voids 0 1 # Bowel Movements 1 - Exam General appearance: The patient is alert, oriented, in no acute distress. HET: Head is normocephalic and atraumatic. Pupils are equal and reactive. Oropharynx is clear without lesions. Neck: Supple without lymphadenopathy. Trachea midline. Heart: S1 S2. Regular rate and rhythm. Lungs: No crackles or wheezes are heard. Abdomen: Soft, nontender, nondistended with bowel sounds. No peritoneal signs. No palpable organomegaly or masses. Extremities: Normal skin color and turgor. No cyanosis, rash, ulceration, clubbing, or edema. Radial and pedal pulses are 2/4 bilaterally. Neurological: No focal deficits. Strength and sensation are grossly intact. - Labs CBC & Chem 7: 05/07/18 05:29 06/13/18 05:29 Labs: Abnormal Lab Results - Last 24 Hours (Table) 05/06/18 05/06/18 05/06/18 Range/Units 02:23 11:59 13:43 WBC 13.9 H (3.8-10.6) k/uL RBC 2.54 L (4.30-5.90) m/uL Hgb 7.0 L* (13.0-17.5) gm/dL Hct 21.7 L (39.0-53.0) % RDW 15.7 H (11.5-15.5) % Neutrophils # 8.3 H (1.3-7.7) k/uL Eosinophils # 0.8 H (0-0.7) k/uL BUN (9-20) mg/dL Creatinine (0.66-1.25) mg/dL Glucose (74-99) mg/dL POC Glucose (mg/dL) 239 H (75-99) mg/dL Calcium (8.4-10.2) mg/dL Magnesium (1.6-2.3) mg/dL Crossmatch See Detail 05/06/18 05/06/18 05/06/18 Range/Units 17:26 18:11 19:48 WBC 12.7 H (3.8-10.6) k/uL RBC 2.85 L (4.30-5.90) m/uL Hgb 7.7 L (13.0-17.5) gm/dL Hct 24.3 L (39.0-53.0) % RDW 15.6 H (11.5-15.5) % Neutrophils # 8.6 H (1.3-7.7) k/uL Eosinophils # (0-0.7) k/uL BUN (9-20) mg/dL Creatinine (0.66-1.25) mg/dL Glucose (74-99) mg/dL POC Glucose (mg/dL) 200 H 190 H (75-99) mg/dL Calcium (8.4-10.2) mg/dL Magnesium (1.6-2.3) mg/dL Crossmatch 05/07/18 05/07/18 Range/Units 05:29 05:29 WBC 14.1 H (3.8-10.6) k/uL RBC 2.81 L (4.30-5.90) m/uL Hgb 7.7 L (13.0-17.5) gm/dL Hct 24.1 L (39.0-53.0) % RDW (11.5-15.5) % Neutrophils # 7.8 H (1.3-7.7) k/uL Eosinophils # 0.9 H (0-0.7) k/uL BUN 25 H (9-20) mg/dL Creatinine 1.40 H (0.66-1.25) mg/dL Glucose 109 H (74-99) mg/dL POC Glucose (mg/dL) (75-99) mg/dL Calcium 8.0 L (8.4-10.2) mg/dL Magnesium 2.4 H (1.6-2.3) mg/dL Crossmatch Assessment and Plan (1) GI bleed Narrative/Plan: 78-year-old male with a history of rectal bleeding 2 weeks status post EGD colonoscopy 05/01/2018 with no evidence of peptic ulcer disease colonic diverticulosis snare polypectomy 3 cecum, hepatic flexure and sigmoid with internal hemorrhoids. Admitted with post colonoscopy rectal bleeding acute blood loss anemia most likely secondary to snare polypectomy exacerbated by aspirin therapy. Current Visit: Yes Status: Acute Code(s): K92.2 - GASTROINTESTINAL HEMORRHAGE, UNSPECIFIED SNOMED Code(s): 13495106 (2) Acute blood loss anemia Current Visit: Yes Status: Acute Code(s): D62 - ACUTE POSTHEMORRHAGIC ANEMIA SNOMED Code(s): 264182860 (3) Post-polypectomy bleeding Current Visit: Yes Status: Acute Code(s): AWG6920 - SNOMED Code(s): 972550620 (4) Status post colonoscopy with polypectomy Current Visit: Yes Status: Acute Code(s): Z98.890 - OTHER SPECIFIED POSTPROCEDURAL STATES SNOMED Code(s): 543789485923 Plan: CBC at noon if stable may transfer back to [facility]. Continue to observe. Will allow clear liquids. Inpatient endoscopy not planned at this time. Assessment and plan a care discussed with Dr. Thacker
[2018-05-07 11:04] LABS: Basophils # (A) 0.1 k/uL (0-0.2); Basophils % (A) 1 %; Eosinophils # (A) 0.9 k/uL (0-0.7); Eosinophils % (A) 6 %; HCT 22.8 % (39.0-53.0); HGB 7.4 gm/dL (13.0-17.5); Hypochromasia Slight; Lymphocytes # (A) 2.8 k/uL (1.0-4.8); Lymphocytes % (A) 19 %; MCH 27.7 pg (25.0-35.0); MCHC 32.3 g/dL (31.0-37.0); MCV 85.9 fL (80.0-100.0); Mean Platelet Volume 7.3; Monocytes # (A) 0.8 k/uL (0-1.0); Monocytes % (A) 6 %; Neutrophils # (A) 9.7 k/uL (1.3-7.7); Neutrophils % (A) 67 %; Platelet Count 248 k/uL (150-450); RBC 2.65 m/uL (4.30-5.90); RDW 15.4 % (11.5-15.5); WBC 14.5 k/uL (3.8-10.6)
[2018-05-07 12:03] LABS: Glucose,Whole Blood 196 mg/dL (75-99)
[2018-05-07 17:33] LABS: Glucose,Whole Blood 240 mg/dL (75-99)
[2018-05-07] MEDS: CHOLECALCIFEROL 1,000 UNIT TAB PO SCH (17:37)
--- NOTE | 2018-05-07 17:39 | P.PN ---
Subjective Patient is admitted for post-polypectomy: Bleeding patient multiple bloody bowel movements today because of which although his hemoglobin is around 7.4 I' m expecting it to drop by tomorrow patient is still complaining of dizziness with transfusing 1 unit of blood. Can you to monitor closely in ICU. Constitutional: Denied any fatigue denied any fever. Cardio vascular: denied any chest pain, palpitations Gastrointestinal denied any nausea vomiting Pulmonary: Denied any shortness of breath cough Neurologic denied any new focal deficits Objective - Vital Signs Vital signs: Vital Signs Temp 98.1 F 05/07/18 16:41 Pulse 74 05/07/18 16:41 Resp 14 05/07/18 16:41 BP 167/65 05/07/18 16:41 Pulse Ox 97 05/07/18 16:00 Intake & Output 05/06/18 05/07/18 05/07/18 18:59 06:59 18:59 Intake Total 310 2420 1310 Output Total 800 400 Balance 310 1620 910 Weight 89.8 kg 89.8 kg Intake: IV 1100 1000 Magnesium Sulfate-D5w Pmx 200 100 1 gm In Dextrose/Water 1 100ml.bag @ 100 mls/hr IVPB Q1H PATTI Rx#: [id number] Sodium Chloride 0.9% 1, 900 900 000 ml @ 100 mls/hr IV . Q10H PATTI Rx#:[id number] Oral 700 Blood Product 310 620 310 Rc As-1 Unit 310 [id number] Rc As-1 Unit 310 [id number] Rc As-1 Unit 310 [id number] Output: Urine 800 400 Other: Voiding Method Toilet Bedside Commode Bedside Commode Urinal # Voids 0 1 # Bowel Movements 1 - Exam PHYSICAL EXAMINATION: GENERAL: The patient is alert and oriented x3, not in any acute distress. Well developed, well nourished. HEENT: Pupils are round and equally reacting to light. EOMI. No scleral icterus. Does have conjunctival pallor. Normocephalic, atraumatic. No pharyngeal erythema. No thyromegaly. CARDIOVASCULAR: S1 and S2 present. No murmurs, rubs, or gallops. PULMONARY: Chest is clear to auscultation, no wheezing or crackles. ABDOMEN: Soft, nontender, nondistended, normoactive bowel sounds. No palpable organomegaly. MUSCULOSKELETAL: No joint swelling or deformity. EXTREMITIES: No cyanosis, clubbing, or pedal edema. NEUROLOGICAL: Gross neurological examination did not reveal any focal deficits. SKIN: No rashes. - Labs CBC & Chem 7: 05/07/18 10:55 05/07/18 05:29 Labs: Abnormal Lab Results - Last 24 Hours (Table) 05/06/18 05/06/18 05/06/18 Range/Units 02:23 18:11 19:48 WBC 12.7 H (3.8-10.6) k/uL RBC 2.85 L (4.30-5.90) m/uL Hgb 7.7 L (13.0-17.5) gm/dL Hct 24.3 L (39.0-53.0) % RDW 15.6 H (11.5-15.5) % Neutrophils # 8.6 H (1.3-7.7) k/uL Eosinophils # (0-0.7) k/uL BUN (9-20) mg/dL Creatinine (0.66-1.25) mg/dL Glucose (74-99) mg/dL POC Glucose (mg/dL) 190 H (75-99) mg/dL Calcium (8.4-10.2) mg/dL Magnesium (1.6-2.3) mg/dL Crossmatch See Detail 05/07/18 05/07/18 05/07/18 Range/Units 05:29 05:29 10:55 WBC 14.1 H 14.5 H (3.8-10.6) k/uL RBC 2.81 L 2.65 L (4.30-5.90) m/uL Hgb 7.7 L 7.4 L (13.0-17.5) gm/dL Hct 24.1 L 22.8 L (39.0-53.0) % RDW (11.5-15.5) % Neutrophils # 7.8 H 9.7 H (1.3-7.7) k/uL Eosinophils # 0.9 H 0.9 H (0-0.7) k/uL BUN 25 H (9-20) mg/dL Creatinine 1.40 H (0.66-1.25) mg/dL Glucose 109 H (74-99) mg/dL POC Glucose (mg/dL) (75-99) mg/dL Calcium 8.0 L (8.4-10.2) mg/dL Magnesium 2.4 H (1.6-2.3) mg/dL Crossmatch 05/07/18 05/07/18 Range/Units 12:01 17:31 WBC (3.8-10.6) k/uL RBC (4.30-5.90) m/uL Hgb (13.0-17.5) gm/dL Hct (39.0-53.0) % RDW (11.5-15.5) % Neutrophils # (1.3-7.7) k/uL Eosinophils # (0-0.7) k/uL BUN (9-20) mg/dL Creatinine (0.66-1.25) mg/dL Glucose (74-99) mg/dL POC Glucose (mg/dL) 196 H 240 H (75-99) mg/dL Calcium (8.4-10.2) mg/dL Magnesium (1.6-2.3) mg/dL Crossmatch Assessment and Plan Plan: -Symptomatic anemia, acute blood loss anemia from lower GI bleed, post polypectomy bleeding: Blood transfusion is on mentioned above, hold off diuretic therapy patient had normal ejection fraction the past, hold off on losartan. Antiplatelet therapy is being held. Patient's creatinine did improve compared to yesterday and is presently 1.4) his baseline continue with IV fluids. Patient is saturating well on room air does not have any pulmonary edema at this time -CVA TIA in the past -Gastroesophageal reflux disease -Type 2 diabetes mellitus -Hypertension -Renal failure: Patient appears to chronic kidney disease stage III with some acute renal failure secondary to excessive diuretic therapy, GI bleed and losartan all of which are being held. -Hypothyroidism continue with levothyroxine Patient has an AICD
[2018-05-07 19:33] LABS: Basophils # (A) 0.1 k/uL (0-0.2); Basophils % (A) 0 %; Eosinophils # (A) 0.5 k/uL (0-0.7); Eosinophils % (A) 3 %; HCT 28.7 % (39.0-53.0); Hypochromasia Slight; Lymphocytes # (A) 3.1 k/uL (1.0-4.8); Lymphocytes % (A) 20 %; MCH 28.5 pg (25.0-35.0); MCHC 32.3 g/dL (31.0-37.0); MCV 88.3 fL (80.0-100.0); Mean Platelet Volume 7.7; Monocytes # (A) 0.7 k/uL (0-1.0); Monocytes % (A) 5 %; Neutrophils # (A) 10.8 k/uL (1.3-7.7); Neutrophils % (A) 70 %; Platelet Count 252 k/uL (150-450); RBC 3.25 m/uL (4.30-5.90); RDW 15.3 % (11.5-15.5); WBC 15.5 k/uL (3.8-10.6)
[2018-05-07 19:41] LABS: HGB 9.3 gm/dL (13.0-17.5)
[2018-05-07 21:08] LABS: Glucose,Whole Blood 170 mg/dL (75-99)
[2018-05-07] MEDS: PRAVASTATIN SODIUM 40 MG TAB PO SCH (21:16)
[2018-05-08 05:25] LABS: Basophils % (A) 0 %; Eosinophils # (A) 0.7 k/uL (0-0.7); Eosinophils % (A) 6 %; HCT 27.1 % (39.0-53.0); HGB 8.7 gm/dL (13.0-17.5); Hypochromasia Slight; Lymphocytes # (A) 2.8 k/uL (1.0-4.8); Lymphocytes % (A) 26 %; MCH 27.9 pg (25.0-35.0); MCHC 31.9 g/dL (31.0-37.0); MCV 87.3 fL (80.0-100.0); Mean Platelet Volume 7.5; Monocytes # (A) 0.6 k/uL (0-1.0); Monocytes % (A) 5 %; Neutrophils # (A) 6.7 k/uL (1.3-7.7); Neutrophils % (A) 61 %; Platelet Count 231 k/uL (150-450); RDW 15.4 % (11.5-15.5); WBC 11.1 k/uL (3.8-10.6)
[2018-05-08 05:39] LABS: Calcium 8.1 mg/dL (8.4-10.2); Magnesium 2.1 mg/dL (1.6-2.3); Phosphorus 3.8 mg/dL (2.5-4.5); Potassium 4.5 mmol/L (3.5-5.1)
[2018-05-08] MEDS: LEVOTHYROXINE 50 MCG TAB PO SCH (06:18)
[2018-05-08 06:58] LABS: Glucose,Whole Blood 104 mg/dL (75-99)
[2018-05-08] MEDS: INSULIN ASPART 100 UNIT/ML 1 ML 10 ML VIAL SQ SCH ×4 (08:49→21:19)
[2018-05-08] MEDS: PANTOPRAZOLE 40 MG/10 ML VIAL IV SCH (08:50)
[2018-05-08] MEDS: ISOSORBIDE MONONITRATE ER 30 MG TAB.ER.24H PO SCH (08:51)
[2018-05-08] MEDS: predniSONE 5 MG TAB PO SCH (08:51)
[2018-05-08] MEDS: CARVEDILOL 6.25 MG TAB PO SCH ×2 (08:51→16:45)
[2018-05-08] MEDS: GABAPENTIN 300 MG CAP PO SCH ×3 (08:51→21:20)
[2018-05-08] MEDS: SODIUM CHLORIDE 0.9% 1,000 ML IV SCH ×2 (08:51→17:36)
--- NOTE | 2018-05-08 10:19 | P.PN ---
Subjective Progress Note Date: 05/08/18 Principal diagnosis: Acute blood loss anemia secondary to lower GI bleeding Mr. Diaz is a 78-year-old white male patient presented to the emergency department on 05/06/2018 at 01 58 with complaints of multiple episodes of painless bright red blood bleeding per rectum. Patient had some weakness, but denied any chest pain or dyspnea. Denied any lightheadedness or dizziness. Patient was recently had upper and lower endoscopy done on 05/01/[address] Biggs. EGD and colonoscopy revealed small hiatal hernia was no esophagitis or complicated reflux disease, mild antral gastritis. Sigmoid diverticulosis with no evidence of acute diverticulitis of strictures, multiple polyps worsening ear , but no large polyps or cancers lesions were noted. There were low-grade internal hemorrhoids without bleeding. Patient was discharged home in stable condition, and was doing relatively well, until he developed the above- mentioned symptoms. Lab work showed hemoglobin of 7.6 on admission, white count of 14.1, platelet count of 291, INR is 1.0, electrolytes were within normal limits, B1 is 27, creatinine is 1.8. Patient had mildly elevated troponin 0.054. EKG showed paced rhythm without acute ischemic changes. Today' s hemoglobin is 7.0, patient had a large bright red stool last night, and again this morning. Patient had 10 or 12 episodes of bright red stools at home. He was started on IV Protonix, maintenance IV fluids are 0.9 at a rate of 100 ML per hour. He was evaluated by GI service, serial H&H's are being drawn, he remained hemodynamically stable, he did receive 2 units of blood this admission. Other medical history includes diabetes mellitus type 2, hypertension, hyperlipidemia, COPD, CVA, chronic renal failure, sick sinus syndrome status post pacemaker implantation, diverticulosis. Patient denies any EtOH abuse, only a social drinker. Remains nothing by mouth, it is possible the source of his bleeding is the polypectomy sites. Denies any acute distress at the time of my evaluation, and is requesting to go home today. He will be kept in the ICU for the most part of the day to monitor for any ongoing bleeding or hemodynamic instability. On 05/08/2018 patient seen again in the intensive care unit. He had 2 red bloody bowel movements yesterday in the morning, and one dark 1 this morning. He remains hemodynamically stable, he has received a total of 3 units of packed red blood cells this admission, and today's hemoglobin is 8.7. Continues on Protonix, IV 0.9 normal saline at a rate of 100 ML per hour, patient is tolerant clear liquid diet, will be progressed to full liquids today. No abdominal pain, no chest pain no shortness of breath. No acute events overnight , right headedness or dizziness. Patient is sitting up in the chair. Anticipate transfer to general medical floor today, GI service is following, and is not planning an endoscopic procedure at this time. The GI bleeding seems to be subsiding, and the source is suspected to be from the previous polypectomy sites. Objective - Vital Signs Vital signs: Vital Signs Temp 98.8 F 05/08/18 04:00 Pulse 60 05/08/18 07:00 Resp 16 05/08/18 07:00 BP 163/66 05/08/18 07:00 Pulse Ox 95 05/08/18 08:32 Intake & Output 05/07/18 05/08/18 05/08/18 18:59 06:59 18:59 Intake Total 1510 2040 Output Total 400 1800 Balance 1110 240 Weight 89.8 kg 88.3 kg Intake: IV 1200 1300 Magnesium Sulfate-D5w Pmx 100 1 gm In Dextrose/Water 1 100ml.bag @ 100 mls/hr IVPB Q1H PATTI Rx#: [id number] Sodium Chloride 0.9% 1, 1100 1300 000 ml @ 100 mls/hr IV . Q10H PATTI Rx#:[id number] Oral 740 Blood Product 310 Rc As-1 Unit 310 [id number] Output: Urine 400 1800 Other: Voiding Method Bedside Commode Bedside Commode Urinal Urinal # Voids 1 0 # Bowel Movements 1 - Exam - Constitutional General appearance: average body habitus, no acute distress - EENT Eyes: PERRLA ENT: NA/AT Ears: bilateral: normal - Neck Neck: no lymphadenopathy, normal ROM Carotids: bilateral: upstroke normal Thyroid: bilateral: normal size - Respiratory Respiratory: bilateral: CTA - Cardiovascular Rhythm: irregularly irregular Heart sounds: normal: S1, S2 - Gastrointestinal General gastrointestinal: no organomegaly, soft, no tenderness - Integumentary Integumentary: normal turgor - Neurologic Neurologic: CNII-XII intact - Musculoskeletal Musculoskeletal: gait normal, generalized weakness - Labs CBC & Chem 7: 05/08/18 05:13 05/08/18 05:13 Labs: Abnormal Lab Results - Last 24 Hours (Table) 05/06/18 05/07/18 05/07/18 Range/Units 02:23 10:55 12:01 WBC 14.5 H (3.8-10.6) k/uL RBC 2.65 L (4.30-5.90) m/uL Hgb 7.4 L (13.0-17.5) gm/dL Hct 22.8 L (39.0-53.0) % Neutrophils # 9.7 H (1.3-7.7) k/uL Eosinophils # 0.9 H (0-0.7) k/uL Chloride (98-107) mmol/L POC Glucose (mg/dL) 196 H (75-99) mg/dL Calcium (8.4-10.2) mg/dL Crossmatch See Detail 05/07/18 05/07/18 05/07/18 Range/Units 17:31 18:17 21:07 WBC 15.5 H (3.8-10.6) k/uL RBC 3.25 L (4.30-5.90) m/uL Hgb 9.3 L D (13.0-17.5) gm/dL Hct 28.7 L (39.0-53.0) % Neutrophils # 10.8 H (1.3-7.7) k/uL Eosinophils # (0-0.7) k/uL Chloride (98-107) mmol/L POC Glucose (mg/dL) 240 H 170 H (75-99) mg/dL Calcium (8.4-10.2) mg/dL Crossmatch 05/08/18 05/08/18 05/08/18 Range/Units 05:13 05:13 06:56 WBC 11.1 H (3.8-10.6) k/uL RBC 3.10 L (4.30-5.90) m/uL Hgb 8.7 L (13.0-17.5) gm/dL Hct 27.1 L (39.0-53.0) % Neutrophils # (1.3-7.7) k/uL Eosinophils # (0-0.7) k/uL Chloride 109 H (98-107) mmol/L POC Glucose (mg/dL) 104 H (75-99) mg/dL Calcium 8.1 L (8.4-10.2) mg/dL Crossmatch Assessment and Plan Plan: Assessment: #1. Acute blood loss anemia secondary to lower GI bleeding, and the source of bleeding suspected to be the previous polypectomy sites. Patient has been transfused with 3 units of PRBCs for hemoglobin of 7.0 #2. Weakness, lightheadedness cleared to above #3. Recent upper and lower endoscopy on 05/01/2018 revealing small hiatal hernia was no esophagitis or complicated reflux disease, mild antral gastritis. Sigmoid diverticulosis with no evidence of acute diverticulitis of strictures , multiple polyps worsening ear, but no large polyps or cancers lesions were noted. There were low-grade internal hemorrhoids without bleeding. #4. Mild troponin leak, patient denies any chest pain, dyspnea, EKG showed no evidence of acute ischemic changes. #5. History of ischemic cardiomyopathy, with permanent pacemaker/AICD implant #6. Diabetes mellitus type 2 #7. Chronic kidney disease #8. COPD, stable Plan: Patient remains hemodynamically stable, and his bleeding seems to be subsiding. No endoscopic studies are planned at this time. Continue with IV Protonix, continue with clear liquid diet, GI service is planning in advancing the diet today. From pulmonary/critical care stay standpoint patient has been stable, and may transfer to general medical floor today. I performed a history & physical examination of the patient and discussed their management with my nurse practitioner, Elissa Arboleda. I reviewed the nurse practitioner's note and agree with the documented findings and plan of care. Lung sounds are clear. The findings and the impression was discussed with the patient. I attest to the documentation by the nurse practitioner. Time with Patient: Greater than 30
--- NOTE | 2018-05-08 10:22 | P.PN ---
Subjective Progress Note Date: 05/08/18 Principal diagnosis: Rectal bleeding 78-year-old male limited with rectal bleeding suspect post-polypectomy in nature. No rectal bleeding since night before last. Received third unit of blood yesterday for reported dizziness since resolved. Tolerating clear liquids requesting advancement. Hemoglobin 8.7. Denies abdominal pain. No emesis. Hemoglobin 7.7. Objective - Vital Signs Vital signs: Vital Signs Temp 98.0 F 05/08/18 08:00 Pulse 60 05/08/18 08:00 Resp 17 05/08/18 08:00 BP 143/70 05/08/18 08:00 Pulse Ox 95 05/08/18 08:32 Intake & Output 05/07/18 05/08/18 05/08/18 18:59 06:59 18:59 Intake Total 1510 2040 Output Total 400 1800 600 Balance 1110 240 -600 Weight 89.8 kg 88.3 kg 88.3 kg Intake: IV 1200 1300 Magnesium Sulfate-D5w Pmx 100 1 gm In Dextrose/Water 1 100ml.bag @ 100 mls/hr IVPB Q1H PATTI Rx#: [id number] Sodium Chloride 0.9% 1, 1100 1300 000 ml @ 100 mls/hr IV . Q10H PATTI Rx#:[id number] Oral 740 Blood Product 310 Rc As-1 Unit 310 [id number] Output: Urine 400 1800 600 Other: Voiding Method Bedside Commode Bedside Commode Bedside Commode Urinal Urinal Urinal # Voids 1 0 0 # Bowel Movements 1 - Exam General appearance: The patient is alert, oriented, in no acute distress. HET: Head is normocephalic and atraumatic. Pupils are equal and reactive. Oropharynx is clear without lesions. Neck: Supple without lymphadenopathy. Trachea midline. Heart: S1 S2. Regular rate and rhythm. Lungs: No crackles or wheezes are heard. Abdomen: Soft, nontender, nondistended with bowel sounds. No peritoneal signs. No palpable organomegaly or masses. Extremities: Normal skin color and turgor. No cyanosis, rash, ulceration, clubbing, or edema. Radial and pedal pulses are 2/4 bilaterally. Neurological: No focal deficits. Strength and sensation are grossly intact. - Labs CBC & Chem 7: 05/08/18 05:13 05/08/18 05:13 Labs: Abnormal Lab Results - Last 24 Hours (Table) 05/06/18 05/07/18 05/07/18 Range/Units 02:23 10:55 12:01 WBC 14.5 H (3.8-10.6) k/uL RBC 2.65 L (4.30-5.90) m/uL Hgb 7.4 L (13.0-17.5) gm/dL Hct 22.8 L (39.0-53.0) % Neutrophils # 9.7 H (1.3-7.7) k/uL Eosinophils # 0.9 H (0-0.7) k/uL Chloride (98-107) mmol/L POC Glucose (mg/dL) 196 H (75-99) mg/dL Calcium (8.4-10.2) mg/dL Crossmatch See Detail 05/07/18 05/07/18 05/07/18 Range/Units 17:31 18:17 21:07 WBC 15.5 H (3.8-10.6) k/uL RBC 3.25 L (4.30-5.90) m/uL Hgb 9.3 L D (13.0-17.5) gm/dL Hct 28.7 L (39.0-53.0) % Neutrophils # 10.8 H (1.3-7.7) k/uL Eosinophils # (0-0.7) k/uL Chloride (98-107) mmol/L POC Glucose (mg/dL) 240 H 170 H (75-99) mg/dL Calcium (8.4-10.2) mg/dL Crossmatch 05/08/18 05/08/18 05/08/18 Range/Units 05:13 05:13 06:56 WBC 11.1 H (3.8-10.6) k/uL RBC 3.10 L (4.30-5.90) m/uL Hgb 8.7 L (13.0-17.5) gm/dL Hct 27.1 L (39.0-53.0) % Neutrophils # (1.3-7.7) k/uL Eosinophils # (0-0.7) k/uL Chloride 109 H (98-107) mmol/L POC Glucose (mg/dL) 104 H (75-99) mg/dL Calcium 8.1 L (8.4-10.2) mg/dL Crossmatch Assessment and Plan (1) GI bleed Narrative/Plan: 78-year-old male with a history of rectal bleeding 2 weeks status post EGD colonoscopy 05/01/2018 with no evidence of peptic ulcer disease colonic diverticulosis snare polypectomy 3 cecum, hepatic flexure and sigmoid with internal hemorrhoids. Admitted with post colonoscopy rectal bleeding acute blood loss anemia most likely secondary to snare polypectomy exacerbated by aspirin therapy. Current Visit: Yes Status: Acute Code(s): K92.2 - GASTROINTESTINAL HEMORRHAGE, UNSPECIFIED SNOMED Code(s): 35419296 (2) Acute blood loss anemia Current Visit: Yes Status: Acute Code(s): D62 - ACUTE POSTHEMORRHAGIC ANEMIA SNOMED Code(s): 492760314 (3) Post-polypectomy bleeding Current Visit: Yes Status: Acute Code(s): FNW9742 - SNOMED Code(s): 796574932 (4) Status post colonoscopy with polypectomy Current Visit: Yes Status: Acute Code(s): Z98.890 - OTHER SPECIFIED POSTPROCEDURAL STATES SNOMED Code(s): 497024375959 Plan: 1. Full liquid diet. CBC monitoring. No plans for repeat endoscopy at this time unless patient continues to bleed. We'll continue to follow with you. Continue to hold aspirin. Assessment and plan a care discussed with Dr. Thacker
[2018-05-08 12:18] LABS: Glucose,Whole Blood 201 mg/dL (75-99)
[2018-05-08] MEDS: CHOLECALCIFEROL 1,000 UNIT TAB PO SCH (13:06)
[2018-05-08 14:47] VITALS: RESP 16
[2018-05-08 17:14] LABS: Glucose,Whole Blood 228 mg/dL (75-99)
[2018-05-08 21:12] LABS: Glucose,Whole Blood 140 mg/dL (75-99)
[2018-05-08] MEDS: LORATADINE-PSEUDOEPH 5-120 MG 1 EACH TAB.ER.12H PO SCH (21:19)
[2018-05-08] MEDS: PRAVASTATIN SODIUM 40 MG TAB PO SCH (21:19)
[2018-05-08] MEDS: BENZOCAINE/MENTHOL LOZENG 1 EACH LOZENGE MUCOUS MEM PRN (21:20)
[2018-05-09 06:06] VITALS: BP 146/61; PULSE 69; TEMP 98.7
[2018-05-09] MEDS: LEVOTHYROXINE 50 MCG TAB PO SCH (06:09)
[2018-05-09] MEDS: SODIUM CHLORIDE 0.9% 1,000 ML IV SCH (06:09)
[2018-05-09 07:14] LABS: Glucose,Whole Blood 122 mg/dL (75-99)
[2018-05-09] MEDS: INSULIN ASPART 100 UNIT/ML 1 ML 10 ML VIAL SQ SCH (07:40)
[2018-05-09 07:53] LABS: Basophils # (A) 0.1 k/uL (0-0.2); Basophils % (A) 0 %; Eosinophils # (A) 0.5 k/uL (0-0.7); Eosinophils % (A) 5 %; HCT 24.4 % (39.0-53.0); HGB 7.8 gm/dL (13.0-17.5); Hypochromasia Slight; Lymphocytes # (A) 2.7 k/uL (1.0-4.8); Lymphocytes % (A) 24 %; MCH 28.1 pg (25.0-35.0); MCHC 32.1 g/dL (31.0-37.0); MCV 87.6 fL (80.0-100.0); Mean Platelet Volume 7.4; Monocytes # (A) 0.8 k/uL (0-1.0); Monocytes % (A) 7 %; Neutrophils # (A) 7.1 k/uL (1.3-7.7); Neutrophils % (A) 63 %; Platelet Count 241 k/uL (150-450); RBC 2.79 m/uL (4.30-5.90); WBC 11.4 k/uL (3.8-10.6)
[2018-05-09] MEDS: ISOSORBIDE MONONITRATE ER 30 MG TAB.ER.24H PO SCH (08:06)
[2018-05-09] MEDS: GABAPENTIN 300 MG CAP PO SCH (08:06)
[2018-05-09] MEDS: LORATADINE-PSEUDOEPH 5-120 MG 1 EACH TAB.ER.12H PO SCH (08:06)
[2018-05-09] MEDS: CARVEDILOL 6.25 MG TAB PO SCH (08:06)
[2018-05-09] MEDS: PANTOPRAZOLE 40 MG/10 ML VIAL IV SCH (08:06)
[2018-05-09] MEDS: CHOLECALCIFEROL 1,000 UNIT TAB PO SCH (08:06)
[2018-05-09] MEDS: predniSONE 5 MG TAB PO SCH (08:06)
[2018-05-09 08:12] LABS: Calcium 8.1 mg/dL (8.4-10.2); Magnesium 1.8 mg/dL (1.6-2.3); Phosphorus 3.1 mg/dL (2.5-4.5); Potassium 4.5 mmol/L (3.5-5.1)
[2018-05-09] MEDS: BENZOCAINE/MENTHOL LOZENG 1 EACH LOZENGE MUCOUS MEM PRN (08:59)
--- NOTE | 2018-05-09 09:42 | P.PN ---
Subjective Progress Note Date: 05/09/18 Principal diagnosis: Rectal bleeding No bleeding. Hemoglobin 7.8. Tolerating full liquids. Denies abdominal pain. Requesting discharge. Objective - Vital Signs Vital signs: Vital Signs Temp 98.7 F 05/09/18 06:05 Pulse 69 05/09/18 06:05 Resp 16 05/09/18 06:05 BP 146/61 05/09/18 06:05 Pulse Ox 96 05/09/18 07:07 Intake & Output 05/08/18 05/09/18 05/09/18 18:59 06:59 18:59 Output Total 1200 Balance -1200 Weight 88.3 kg Output: Urine 1200 Other: Voiding Method Bedside Commode Urinal # Voids 1 1 - Exam General appearance: The patient is alert, oriented, in no acute distress. HET: Head is normocephalic and atraumatic. Pupils are equal and reactive. Oropharynx is clear without lesions. Neck: Supple without lymphadenopathy. Trachea midline. Heart: S1 S2. Regular rate and rhythm. Lungs: No crackles or wheezes are heard. Abdomen: Soft, nontender, nondistended with bowel sounds. No peritoneal signs. No palpable organomegaly or masses. Extremities: Normal skin color and turgor. No cyanosis, rash, ulceration, clubbing, or edema. Radial and pedal pulses are 2/4 bilaterally. Neurological: No focal deficits. Strength and sensation are grossly intact. - Labs CBC & Chem 7: 05/09/18 07:12 05/09/18 07:12 Labs: Abnormal Lab Results - Last 24 Hours (Table) 05/08/18 05/08/18 05/08/18 Range/Units 12:09 16:57 21:07 WBC (3.8-10.6) k/uL RBC (4.30-5.90) m/uL Hgb (13.0-17.5) gm/dL Hct (39.0-53.0) % RDW (11.5-15.5) % Chloride (98-107) mmol/L Glucose (74-99) mg/dL POC Glucose (mg/dL) 201 H 228 H 140 H (75-99) mg/dL Calcium (8.4-10.2) mg/dL 05/09/18 05/09/18 05/09/18 Range/Units 07:10 07:12 07:12 WBC 11.4 H (3.8-10.6) k/uL RBC 2.79 L (4.30-5.90) m/uL Hgb 7.8 L (13.0-17.5) gm/dL Hct 24.4 L (39.0-53.0) % RDW 16.0 H (11.5-15.5) % Chloride 109 H (98-107) mmol/L Glucose 110 H (74-99) mg/dL POC Glucose (mg/dL) 122 H (75-99) mg/dL Calcium 8.1 L (8.4-10.2) mg/dL Assessment and Plan (1) GI bleed Narrative/Plan: 78-year-old male with a history of rectal bleeding 2 weeks status post EGD colonoscopy 05/01/2018 with no evidence of peptic ulcer disease colonic diverticulosis snare polypectomy 3 cecum, hepatic flexure and sigmoid with internal hemorrhoids. Admitted with post colonoscopy rectal bleeding acute blood loss anemia most likely secondary to snare polypectomy exacerbated by aspirin therapy. Current Visit: Yes Status: Acute Code(s): K92.2 - GASTROINTESTINAL HEMORRHAGE, UNSPECIFIED SNOMED Code(s): 15185510 (2) Acute blood loss anemia Current Visit: Yes Status: Acute Code(s): D62 - ACUTE POSTHEMORRHAGIC ANEMIA SNOMED Code(s): 885865364 (3) Post-polypectomy bleeding Current Visit: Yes Status: Acute Code(s): BFH7885 - SNOMED Code(s): 883308863 (4) Status post colonoscopy with polypectomy Current Visit: Yes Status: Acute Code(s): Z98.890 - OTHER SPECIFIED POSTPROCEDURAL STATES SNOMED Code(s): 238287789320 Plan: 1. May resume baby aspirin in 1-2 days. Follow with PCP within a week with repeat CBC in 3-5 days. Return to Hospital if rectal bleeding recurs. Recommend full liquid low residue diet for the next 2-3 days until normal bowel function returns. Discharge per medicine. Assessment and plan a care discussed with Dr. Thacker
--- NOTE | 2018-05-09 11:03 | P.PN ---
Subjective Progress Note Date: 05/09/18 Principal diagnosis: Acute blood loss anemia secondary to lower GI bleeding Mr. Diaz is a 78-year-old white male patient presented to the emergency department on 05/06/2018 at 01 58 with complaints of multiple episodes of painless bright red blood bleeding per rectum. Patient had some weakness, but denied any chest pain or dyspnea. Denied any lightheadedness or dizziness. Patient was recently had upper and lower endoscopy done on 05/01/[address] Biggs. EGD and colonoscopy revealed small hiatal hernia was no esophagitis or complicated reflux disease, mild antral gastritis. Sigmoid diverticulosis with no evidence of acute diverticulitis of strictures, multiple polyps worsening ear , but no large polyps or cancers lesions were noted. There were low-grade internal hemorrhoids without bleeding. Patient was discharged home in stable condition, and was doing relatively well, until he developed the above- mentioned symptoms. Lab work showed hemoglobin of 7.6 on admission, white count of 14.1, platelet count of 291, INR is 1.0, electrolytes were within normal limits, B1 is 27, creatinine is 1.8. Patient had mildly elevated troponin 0.054. EKG showed paced rhythm without acute ischemic changes. Today' s hemoglobin is 7.0, patient had a large bright red stool last night, and again this morning. Patient had 10 or 12 episodes of bright red stools at home. He was started on IV Protonix, maintenance IV fluids are 0.9 at a rate of 100 ML per hour. He was evaluated by GI service, serial H&H's are being drawn, he remained hemodynamically stable, he did receive 2 units of blood this admission. Other medical history includes diabetes mellitus type 2, hypertension, hyperlipidemia, COPD, CVA, chronic renal failure, sick sinus syndrome status post pacemaker implantation, diverticulosis. Patient denies any EtOH abuse, only a social drinker. Remains nothing by mouth, it is possible the source of his bleeding is the polypectomy sites. Denies any acute distress at the time of my evaluation, and is requesting to go home today. He will be kept in the ICU for the most part of the day to monitor for any ongoing bleeding or hemodynamic instability. On 05/08/2018 patient seen again in the intensive care unit. He had 2 red bloody bowel movements yesterday in the morning, and one dark 1 this morning. He remains hemodynamically stable, he has received a total of 3 units of packed red blood cells this admission, and today's hemoglobin is 8.7. Continues on Protonix, IV 0.9 normal saline at a rate of 100 ML per hour, patient is tolerant clear liquid diet, will be progressed to full liquids today. No abdominal pain, no chest pain no shortness of breath. No acute events overnight , right headedness or dizziness. Patient is sitting up in the chair. Anticipate transfer to general medical floor today, GI service is following, and is not planning an endoscopic procedure at this time. The GI bleeding seems to be subsiding, and the source is suspected to be from the previous polypectomy sites. On 05/09/2018 patient seen in follow-up on medical surgical floor. He remains stable, no further GI bleeding in the past 24 hours, today's hemoglobin 7.8, and patient has received 3 units of packed red blood cells during this admission , remains hemodynamically stable. Chest pain no dyspnea, orstable,he is tolerating full liquids,denies any abdominal pain, and cleared for discharge by the GI service. From pulmonary/critical care standpoint, stable at discharge home today. Objective - Vital Signs Vital signs: Vital Signs Temp 98.7 F 05/09/18 06:05 Pulse 69 05/09/18 06:05 Resp 16 05/09/18 06:05 BP 146/61 05/09/18 06:05 Pulse Ox 96 05/09/18 07:07 Intake & Output 05/08/18 05/09/18 05/09/18 18:59 06:59 18:59 Output Total 1200 Balance -1200 Weight 88.3 kg Output: Urine 1200 Other: Voiding Method Bedside Commode Urinal # Voids 1 1 - Exam - Constitutional General appearance: average body habitus, no acute distress - EENT Eyes: PERRLA ENT: NA/AT Ears: bilateral: normal - Neck Neck: no lymphadenopathy, normal ROM Carotids: bilateral: upstroke normal Thyroid: bilateral: normal size - Respiratory Respiratory: bilateral: CTA - Cardiovascular Rhythm: irregularly irregular Heart sounds: normal: S1, S2 - Gastrointestinal General gastrointestinal: no organomegaly, soft, no tenderness - Integumentary Integumentary: normal turgor - Neurologic Neurologic: CNII-XII intact - Musculoskeletal Musculoskeletal: gait normal, generalized weakness - Labs CBC & Chem 7: 05/09/18 07:12 05/09/18 07:12 Labs: Abnormal Lab Results - Last 24 Hours (Table) 05/08/18 05/08/18 05/08/18 Range/Units 12:09 16:57 21:07 WBC (3.8-10.6) k/uL RBC (4.30-5.90) m/uL Hgb (13.0-17.5) gm/dL Hct (39.0-53.0) % RDW (11.5-15.5) % Chloride (98-107) mmol/L Glucose (74-99) mg/dL POC Glucose (mg/dL) 201 H 228 H 140 H (75-99) mg/dL Calcium (8.4-10.2) mg/dL 05/09/18 05/09/18 05/09/18 Range/Units 07:10 07:12 07:12 WBC 11.4 H (3.8-10.6) k/uL RBC 2.79 L (4.30-5.90) m/uL Hgb 7.8 L (13.0-17.5) gm/dL Hct 24.4 L (39.0-53.0) % RDW 16.0 H (11.5-15.5) % Chloride 109 H (98-107) mmol/L Glucose 110 H (74-99) mg/dL POC Glucose (mg/dL) 122 H (75-99) mg/dL Calcium 8.1 L (8.4-10.2) mg/dL Assessment and Plan Plan: Assessment: #1. Acute blood loss anemia secondary to lower GI bleeding, and the source of bleeding suspected to be the previous polypectomy sites. Patient has been transfused with 3 units of PRBCs for hemoglobin of 7.0 #2. Weakness, lightheadedness cleared to above #3. Recent upper and lower endoscopy on 05/01/2018 revealing small hiatal hernia was no esophagitis or complicated reflux disease, mild antral gastritis. Sigmoid diverticulosis with no evidence of acute diverticulitis of strictures , multiple polyps worsening ear, but no large polyps or cancers lesions were noted. There were low-grade internal hemorrhoids without bleeding. #4. Mild troponin leak, patient denies any chest pain, dyspnea, EKG showed no evidence of acute ischemic changes. #5. History of ischemic cardiomyopathy, with permanent pacemaker/AICD implant #6. Diabetes mellitus type 2 #7. Chronic kidney disease #8. COPD, stable Plan: No further GI bleeding, hemoglobin 7.8, tolerating full liquids, and, no dyspnea , no abdominal pain, stable for discharge home today from pulmonary/critical care standpoint. I performed a history & physical examination of the patient and discussed their management with my nurse practitioner, Elissa Arboleda. I reviewed the nurse practitioner's note and agree with the documented findings and plan of care. Lung sounds are clear. The findings and the impression was discussed with the patient. I attest to the documentation by the nurse practitioner. Time with Patient: Less than 30
--- NOTE | 2018-05-09 17:56 | P.PN ---
Subjective Progress Note Date: 05/08/18 Progress note being dictated for Dr. Trejo. Interval history:Patient is admitted for post-polypectomy: Bleeding patient multiple bloody bowel movements today because of which although his hemoglobin is around 7.4 I'm expecting it to drop by tomorrow patient is still complaining of dizziness with transfusing 1 unit of blood. Can you to monitor closely in ICU. Constitutional: Denied any fatigue denied any fever. Cardio vascular: denied any chest pain, palpitations Gastrointestinal denied any nausea vomiting Pulmonary: Denied any shortness of breath cough Neurologic denied any new focal deficits 05/08/2018 hemoglobin remained stable at 8.7 with no further bleeding reported. Denies dizziness, lightheadedness or blurred vision or focal deficits. Denies chest pain, palpitations or increasing shortness of breath. Tolerating clear liquid diet with no nausea or vomiting. Renal function continues to improve. Objective - Vital Signs Vital signs: Vital Signs Temp 97.6 F 05/08/18 14:46 Pulse 76 05/08/18 14:46 Resp 16 05/08/18 14:46 BP 102/53 05/08/18 14:46 Pulse Ox 91 L 05/08/18 14:46 Intake & Output 05/07/18 05/08/18 05/08/18 18:59 06:59 18:59 Intake Total 1510 2040 Output Total 400 1800 1200 Balance 1110 240 -1200 Weight 89.8 kg 88.3 kg 88.3 kg Intake: IV 1200 1300 Magnesium Sulfate-D5w Pmx 100 1 gm In Dextrose/Water 1 100ml.bag @ 100 mls/hr IVPB Q1H PATTI Rx#: [id number] Sodium Chloride 0.9% 1, 1100 1300 000 ml @ 100 mls/hr IV . Q10H PATTI Rx#:[id number] Oral 740 Blood Product 310 Rc As-1 Unit 310 [id number] Output: Urine 400 1800 1200 Other: Voiding Method Bedside Commode Bedside Commode Bedside Commode Urinal Urinal Urinal # Voids 1 0 1 # Bowel Movements 1 - Exam GENERAL: The patient is alert and oriented x3, not in any acute distress. Well developed, well nourished. HEENT: Pupils are round and equally reacting to light. EOMI. No scleral icterus. Does have conjunctival pallor. Normocephalic, atraumatic. No pharyngeal erythema. No thyromegaly. CARDIOVASCULAR: S1 and S2 present. No murmurs, rubs, or gallops. PULMONARY: Chest is clear to auscultation, no wheezing or crackles. ABDOMEN: Soft, nontender, nondistended, normoactive bowel sounds. No palpable organomegaly. MUSCULOSKELETAL: No joint swelling or deformity. EXTREMITIES: No cyanosis, clubbing, or pedal edema. NEUROLOGICAL: Gross neurological examination did not reveal any focal deficits. SKIN: No rashes. - Labs CBC & Chem 7: 05/09/18 07:12 05/09/18 07:12 Labs: Abnormal Lab Results - Last 24 Hours (Table) 05/07/18 05/07/18 05/08/18 Range/Units 18:17 21:07 05:13 WBC 15.5 H 11.1 H (3.8-10.6) k/uL RBC 3.25 L 3.10 L (4.30-5.90) m/uL Hgb 9.3 L D 8.7 L (13.0-17.5) gm/dL Hct 28.7 L 27.1 L (39.0-53.0) % Neutrophils # 10.8 H (1.3-7.7) k/uL Chloride (98-107) mmol/L POC Glucose (mg/dL) 170 H (75-99) mg/dL Calcium (8.4-10.2) mg/dL 05/08/18 05/08/18 05/08/18 Range/Units 05:13 06:56 12:09 WBC (3.8-10.6) k/uL RBC (4.30-5.90) m/uL Hgb (13.0-17.5) gm/dL Hct (39.0-53.0) % Neutrophils # (1.3-7.7) k/uL Chloride 109 H (98-107) mmol/L POC Glucose (mg/dL) 104 H 201 H (75-99) mg/dL Calcium 8.1 L (8.4-10.2) mg/dL 05/08/18 Range/Units 16:57 WBC (3.8-10.6) k/uL RBC (4.30-5.90) m/uL Hgb (13.0-17.5) gm/dL Hct (39.0-53.0) % Neutrophils # (1.3-7.7) k/uL Chloride (98-107) mmol/L POC Glucose (mg/dL) 228 H (75-99) mg/dL Calcium (8.4-10.2) mg/dL Assessment and Plan Assessment: Symptomatic anemia, acute blood loss anemia from lower GI bleed, post polypectomy bleeding:hold off diuretic therapy patient had normal ejection fraction the past. -CVA TIA in the past -Gastroesophageal reflux disease -Type 2 diabetes mellitus -Hypertension -Renal failure: Patient appears to chronic kidney disease stage III with some acute renal failure secondary to excessive diuretic therapy, GI bleed and losartan all of which are being held. -Hypothyroidism Patient has an AICD Plan: Continue on current medication regime ,monitoring and symptomatic treatment. Patient has just transferred out of ICU to regular medical surgical floor. We'll continue monitoring overnight with discharge planning in progress for tomorrow pending clearance from GI. Close monitoring of CBC with repeat labs ordered for a.m. The impression and plan of care has been dictated as directed. : I performed a history and examination of this patient, discussed the same with the dictator. I agree with the dictator's note ,documented as a scribe. Any additional findings or plans will be noted.
--- NOTE | 2018-05-09 18:04 | P.DS ---
Providers Date of admission: 05/06/18 05:36 Expected date of discharge: 05/09/18 Attending physician: Macy Trejo Consults: 05/06/18 05:37 Consult Physician Routine Consulting Provider: Daljit Tate Consult Reason/Comments: GI Bleeding Do you want consulting provider notified?: Yes 05/06/18 18:12 Consult Physician Routine Consulting Provider: Siddharth Simons Consult Reason/Comments: ICU transfere Do you want consulting provider notified?: Yes Primary care physician: [facility] Course: Symptomatic anemia, acute blood loss anemia from lower GI bleed, post polypectomy bleeding:hold off diuretic therapy patient had normal ejection fraction the past. -CVA TIA in the past -Gastroesophageal reflux disease -Type 2 diabetes mellitus -Hypertension -Renal failure: Patient appears to chronic kidney disease stage III with some acute renal failure secondary to excessive diuretic therapy, GI bleed and losartan all of which are being held. -Hypothyroidism Patient has an AICD, history of ischemic cardiomyopathy Hospital course: This is a 78-year-old gentleman admitted with lower GI bleeding , post polypectomy. Evaluated by neurological surgery teacher and GI. Received multiple units of packed RBCs. Recent upper and lower endoscopy on 05/01/2018 reporting small hiatal hernia, no esophagitis or complicated reflux disease, mild antral gastritis, sigmoid diverticulosis with no evidence of acute diverticulitis, multiple polyps, low-grade internal hemorrhoids. Cleared to resume aspirin therapy tomorrow as per GI. Low residue diet. Patient has been cleared by all consults for discharge. Patient is being discharged home in a stable condition with guarded prognosis. EXAM:GENERAL: The patient is alert and oriented x3, not in any acute distress. CARDIOVASCULAR: S1 and S2 present. No murmurs, rubs, or gallops. PULMONARY: Chest is clear to auscultation, no wheezing or crackles. ABDOMEN: Soft, nontender, nondistended, normoactive bowel sounds. No palpable organomegaly. NEUROLOGICAL: Gross neurological examination did not reveal any focal deficits. The impression and plan of care has been dictated as directed. : I performed a history and examination of this patient, discussed the same with the dictator. I agree with the dictator's note ,documented as a scribe. Any additional findings or plans will be noted. Time taken: 35 minutes Patient Condition at Discharge: Stable Plan - Discharge Summary Discharge Rx Participant: No New Discharge Prescriptions: Continue Insulin Detemir [Levemir Flextouch] 30 units SQ HS Allopurinol 300 mg PO DAILY Pravastatin Sodium 40 mg PO HS Pantoprazole Sodium 40 mg PO DAILY Carvedilol [Coreg] 6.25 mg PO BID Cholecalciferol [Vitamin D3] 1,000 unit PO DAILY Ascorbic Acid [Vitamin C] 500 mg PO DAILY Insulin Aspart [NovoLOG Flexpen] See Protocol SQ AC-TID Levothyroxine Sodium [Synthroid] 50 mcg PO DAILY predniSONE 5 mg PO DAILY Isosorbide Mononitrate [Isosorbide Mononitrate ER] 30 mg PO DAILY hydrALAZINE HCL 25 mg PO BID Gabapentin [Neurontin] 300 mg PO TID Aspirin EC [Ecotrin Low Dose] 81 mg PO DAILY #0 Discontinued Torsemide 10 mg PO DAILY Discharge Medication List Allopurinol 300 mg PO DAILY 05/31/16 [History] Insulin Detemir [Levemir Flextouch] 30 units SQ HS 05/31/16 [History] Pantoprazole Sodium 40 mg PO DAILY 05/31/16 [History] Pravastatin Sodium 40 mg PO HS 05/31/16 [History] Carvedilol [Coreg] 6.25 mg PO BID 01/09/17 [History] Ascorbic Acid [Vitamin C] 500 mg PO DAILY 09/23/17 [History] Cholecalciferol [Vitamin D3] 1,000 unit PO DAILY 09/23/17 [History] Insulin Aspart [NovoLOG Flexpen] See Protocol SQ AC-TID 09/23/17 [History] Levothyroxine Sodium [Synthroid] 50 mcg PO DAILY 03/27/18 [History] predniSONE 5 mg PO DAILY 04/30/18 [History] Gabapentin [Neurontin] 300 mg PO TID 05/06/18 [History] Isosorbide Mononitrate [Isosorbide Mononitrate ER] 30 mg PO DAILY 05/06/18 [ History] hydrALAZINE HCL 25 mg PO BID 05/06/18 [History] Aspirin EC [Ecotrin Low Dose] 81 mg PO DAILY #0 05/09/18 [Rx] Follow up Appointment(s)/Referral(s): Lucretia Thacker MD [STAFF PHYSICIAN] - 2 Weeks (patient prefers to make own apt.) Rikki Trent DO [Primary Care Provider] - 3 Days (patient prefers to make own apt.) Ambulatory/Diagnostic Orders: Complete Blood Count w/diff [LAB.AMB] Time Frame: 3 Days, Location: Determined By Patient Patient Instructions/Handouts: Gastrointestinal Bleeding (DC), Low Fiber Diet ( DC), Type 2 Diabetes in Adults (DC) Activity/Diet/Wound Care/Special Instructions: Consistent Carb, low fiber diet Activity as tolerated. Discharge Disposition: HOME SELF-CARE
== END 2018-05-09 10:00 | disposition home or self-care (01) | DRG 920 ==
LOC: EC 01:58 → 6SEL 05:36 → 4MS4W 13:32 → 6ICU 19:39 → 4MS4W 05-08 10:45
PROVIDERS: ADMIT Hospitalist; ATTEND Hospitalist
PROC: 30233N1 Transfusion of Nonautologous Red Blood Cells into Peripheral Vein, Percutaneous Approach (ICD-10-PCS; principal; 2018-05-06)
DX: K91.840 Postprocedural hemorrhage of a digestive system organ or structure following a digestive system procedure (principal); D62 Acute posthemorrhagic anemia; N17.9 Acute kidney failure, unspecified; E03.9 Hypothyroidism, unspecified; E11.22 Type 2 diabetes mellitus with diabetic chronic kidney disease; E78.5 Hyperlipidemia, unspecified; I12.9 Hypertensive chronic kidney disease with stage 1 through stage 4 chronic kidney disease, or unspecified chronic kidney disease; I25.10 Atherosclerotic heart disease of native coronary artery without angina pectoris; I25.5 Ischemic cardiomyopathy; J44.9 Chronic obstructive pulmonary disease, unspecified; K21.9 Gastro-esophageal reflux disease without esophagitis; K44.9 Diaphragmatic hernia without obstruction or gangrene; K57.30 Diverticulosis of large intestine without perforation or abscess without bleeding; K64.8 Other hemorrhoids; M06.9 Rheumatoid arthritis, unspecified; N18.3 Chronic kidney disease, stage 3 (moderate); Y83.8 Other surgical procedures as the cause of abnormal reaction of the patient, or of later complication, without mention of misadventure at the time of the procedure; Z79.4 Long term (current) use of insulin; Z79.82 Long term (current) use of aspirin; Z86.73 Personal history of transient ischemic attack (TIA), and cerebral infarction without residual deficits; Z87.01 Personal history of pneumonia (recurrent); Z87.891 Personal history of nicotine dependence; Z95.810 Presence of automatic (implantable) cardiac defibrillator; Z79.890 Hormone replacement therapy; Z79.899 Other long term (current) drug therapy; Z88.1 Allergy status to other antibiotic agents; Z88.3 Allergy status to other anti-infective agents; Z91.041 Radiographic dye allergy status; Z91.013 Allergy to seafood; R77.8 Other specified abnormalities of plasma proteins; Z86.010 Personal history of colon polyps
CPT/HCPCS: 36415; 80048; 80053; 82330; 82550; 82553; 83605; 83735; 84100; 84484; 85025; 85610; 85730; 86850; 86900; 86901; 86920; 93005; 94760; 96374; 99285

== ENCOUNTER → 2018-05-19 | Outpatient (CLI) | payer MEDICARE, BC ==
[2018-05-19 09:28] LABS: T4, Free (Free Thyroxine) 1.41 ng/dL (0.78-2.19)
== END | disposition home or self-care (01) ==
LOC: LABWHC1 08:31
PROVIDERS: ATTEND Internal Medicine Endocrinology, Diabetes & Metabolism
DX: R94.6 Abnormal results of thyroid function studies (principal)
CPT/HCPCS: 36415; 84439; 84443

== ENCOUNTER 2018-05-30 12:58 | Inpatient (IN) | payer MEDICARE, BC ==
[2018-05-30] MEDS ORDERED: NITROGLYCERIN OINT 1 INCH/GM PACKET TOPICAL STA (13:23)
[2018-05-30] MEDS ORDERED: ASPIRIN 81 MG PO STA (13:23)
--- NOTE | 2018-05-30 13:26 | ED ---
General Adult HPI - General Chief complaint: Chest Pain Stated complaint: Chest Pain, sob Time Seen by Provider: 05/30/18 13:00 Source: patient, RN notes reviewed Mode of arrival: wheelchair Limitations: no limitations - History of Present Illness Initial comments: This is a 78-year-old male who presents emergency department with past medical history significant for diabetes high blood pressure high cholesterol. Patient also has a pacer defibrillator placed. Patient denies any heart attacks in the past or stent placements. Patient comes into the emergency department today complaining of chest pressure. Patient also states he is mildly short of breath. Patient states chest pressure started to a.m. and continues until this time. Patient states it has slightly worsened. Patient states he also has some jaw pain on the right. Patient denies any other radiation. Patient denies any shortness of breath or difficulty breathing. Patient denies any recent fever chills he states he has a dry cough but is not that bad. Patient denies any abdominal pain patient denies nausea vomiting diarrhea. Patient denies any calf pain or leg swelling. Patient denies any patient denies numbness weakness. Patient denies any lightheadedness dizziness or near syncopal episode. Patient denies any recent injury or trauma - Related Data Home Medications Medication Instructions Recorded Confirmed Allopurinol 300 mg PO DAILY 05/31/16 05/30/18 Insulin Detemir [Levemir Flextouch] 30 units SQ HS 05/31/16 05/30/18 Pantoprazole Sodium 40 mg PO DAILY 05/31/16 05/30/18 Pravastatin Sodium 40 mg PO HS 05/31/16 05/30/18 Carvedilol [Coreg] 6.25 mg PO BID 01/09/17 05/30/18 Ascorbic Acid [Vitamin C] 500 mg PO DAILY 09/23/17 05/30/18 Cholecalciferol [Vitamin D3] 1,000 unit PO DAILY 09/23/17 05/30/18 Insulin Aspart [NovoLOG Flexpen] See Protocol SQ AC-TID 09/23/17 05/30/18 Levothyroxine Sodium [Synthroid] 50 mcg PO DAILY 03/27/18 05/30/18 predniSONE 5 mg PO DAILY 04/30/18 05/30/18 Gabapentin [Neurontin] 300 mg PO TID 05/06/18 05/30/18 Isosorbide Mononitrate [Isosorbide 30 mg PO DAILY 05/06/18 05/30/18 Mononitrate ER] hydrALAZINE HCL 25 mg PO BID 05/06/18 05/30/18 Previous Rx's Medication Instructions Recorded Aspirin EC [Ecotrin Low Dose] 81 mg PO DAILY #0 05/09/18 Allergies Allergy/AdvReac Type Severity Reaction Status Date / Time amlodipine Allergy Swelling Verified 05/30/18 14:00 doxycycline Allergy Anaphylaxis Verified 05/30/18 14:00 Iodinated Contrast- Oral and Allergy Anaphylaxis Verified 05/30/18 14:00 IV Dye iodine Allergy Rash/Hives Verified 05/30/18 14:00 metronidazole [From Flagyl] Allergy Rash/Hives Verified 05/30/18 14:00 shrimp Allergy Rash/Hives Verified 05/30/18 14:00 acarbose AdvReac Abdominal Verified 05/30/18 14:00 Pain amoxicillin trihydrate AdvReac Nausea & Verified 05/30/18 14:00 [From Augmentin] Vomiting potassium clavulanate AdvReac Nausea & Verified 05/30/18 14:00 [From Augmentin] Vomiting Review of Systems ROS Statement: Those systems with pertinent positive or pertinent negative responses have been documented in the HPI. ROS Other: All systems not noted in ROS Statement are negative. 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, CVA in 2005, hiatal hernia; recent pneumonia History of Any Multi-Drug Resistant Organisms: None Reported Past Surgical History: AICD, Back Surgery, Heart Catheterization, Pacemaker, Tonsillectomy Additional Past Surgical History / Comment(s): Biventricular AICD placement, back surgery 5, cardiac catheterization, tonsillectomy; colonoscopy Past Anesthesia/Blood Transfusion Reactions: No Reported Reaction Type of Cardiac Device: Permanent Pacemaker, AICD Device Placement Date:: 2016 Past Psychological History: No Psychological Hx Reported Smoking Status: Former smoker Past Alcohol Use History: Occasional Past Drug Use History: None Reported - Past Family History Mother Family Medical History: No Reported History Father History Unknown: Yes Family Medical History: No Reported History Additional Family Medical History / Comment(s): Father was healthy and lived to be 88yrs old. General Exam - General Exam Comments Initial Comments: GENERAL: Patient is well-developed and well-nourished. Patient is nontoxic and well- hydrated and is in mild distress. ENT: Neck is soft and supple. No significant lymphadenopathy is noted. Oropharynx is clear. Moist mucous membranes. Neck has full range of motion without eliciting any pain. EYES: The sclera were anicteric and conjunctiva were pink and moist. Extraocular movements were intact and pupils were equal round and reactive to light. Eyelids were unremarkable. PULMONARY: Unlabored respirations. Good breath sounds bilaterally. No audible rales rhonchi or wheezing was noted. CARDIOVASCULAR: There is a regular rate and rhythm without any murmurs gallops or rubs. ABDOMEN: Soft and nontender with normal bowel sounds. No palpable organomegaly was noted. There is no palpable pulsatile mass. SKIN: Skin is clear with no lesions or rashes and otherwise unremarkable. NEUROLOGIC: Patient is alert and oriented x3. Cranial nerves II through XII are grossly intact. Motor and sensory are also intact. Normal speech, volume and content. Symmetrical smile. MUSCULOSKELETAL: Normal extremities with adequate strength and full range of motion. No lower extremity swelling or edema. No calf tenderness. LYMPHATICS: No significant lymphadenopathy is noted PSYCHIATRIC: Normal psychiatric evaluation. Normal interpersonal interactions appears functionally intact in deals appropriately with others. No signs of depression. No signs of anxiety. Limitations: no limitations Course Vital Signs 05/30/18 05/30/18 05/30/18 13:01 13:19 14:18 Temperature 98.3 F Pulse Rate 71 75 Respiratory 18 18 16 Rate Blood Pressure 132/57 150/67 O2 Sat by Pulse 96 97 Oximetry Medical Decision Making - Medical Decision Making EKG shows a paced rhythm at 80 bpm CA interval is 136 dresses 124 QT interval is 452 QTC is 546. Patient's EKG shows no ST segment elevation or depression. Chest x-ray no acute abnormality I started heparin because the patient's troponin was elevated and his significant story consistent with unstable angina. I admitted the patient wrote admitting orders and consult cardiology. I continue the heparin Nitropaste and aspirin on the floor. - Lab Data Result diagrams: 05/30/18 13:14 05/30/18 13:14 Lab Results 05/30/18 05/30/18 05/30/18 Range/Units 13:14 13:14 13:14 WBC 14.1 H (3.8-10.6) k/uL RBC 3.69 L (4.30-5.90) m/uL Hgb 9.8 L D (13.0-17.5) gm/dL Hct 31.6 L (39.0-53.0) % MCV 85.5 (80.0-100.0) fL MCH 26.5 (25.0-35.0) pg MCHC 31.0 (31.0-37.0) g/dL RDW 15.2 (11.5-15.5) % Plt Count 512 H D (150-450) k/uL Neutrophils % 73 % Lymphocytes % 15 % Monocytes % 6 % Eosinophils % 5 % Basophils % 0 % Neutrophils # 10.3 H (1.3-7.7) k/uL Lymphocytes # 2.1 (1.0-4.8) k/uL Monocytes # 0.8 (0-1.0) k/uL Eosinophils # 0.7 (0-0.7) k/uL Basophils # 0.1 (0-0.2) k/uL Hypochromasia Marked PT (9.0-12.0) sec INR (<1.2) APTT (22.0-30.0) sec Sodium 140 (137-145) mmol/L Potassium 4.7 (3.5-5.1) mmol/L Chloride 101 (98-107) mmol/L Carbon Dioxide 26 (22-30) mmol/L Anion Gap 13 mmol/L BUN 15 (9-20) mg/dL Creatinine 1.28 H (0.66-1.25) mg/dL Est GFR (CKD-EPI)AfAm 61 (>60 ml/min/1.73 sqM) Est GFR (CKD-EPI)NonAf 53 (>60 ml/min/1.73 sqM) Glucose 205 H (74-99) mg/dL Calcium 9.0 (8.4-10.2) mg/dL Magnesium 1.7 (1.6-2.3) mg/dL Total Bilirubin 0.6 (0.2-1.3) mg/dL AST 16 L (17-59) U/L ALT 20 L (21-72) U/L Alkaline Phosphatase 73 (38-126) U/L Total Creatine Kinase 41 L (55-170) U/L CK-MB (CK-2) 0.8 (0.0-2.4) ng/mL CK-MB (CK-2) Rel Index 2.0 Troponin I 0.068 H* (0.000-0.034) ng/mL Total Protein 6.2 L (6.3-8.2) g/dL Albumin 3.5 (3.5-5.0) g/dL 05/30/18 Range/Units 13:14 WBC (3.8-10.6) k/uL RBC (4.30-5.90) m/uL Hgb (13.0-17.5) gm/dL Hct (39.0-53.0) % MCV (80.0-100.0) fL MCH (25.0-35.0) pg MCHC (31.0-37.0) g/dL RDW (11.5-15.5) % Plt Count (150-450) k/uL Neutrophils % % Lymphocytes % % Monocytes % % Eosinophils % % Basophils % % Neutrophils # (1.3-7.7) k/uL Lymphocytes # (1.0-4.8) k/uL Monocytes # (0-1.0) k/uL Eosinophils # (0-0.7) k/uL Basophils # (0-0.2) k/uL Hypochromasia PT 9.4 (9.0-12.0) sec INR 0.9 (<1.2) APTT 22.9 (22.0-30.0) sec Sodium (137-145) mmol/L Potassium (3.5-5.1) mmol/L Chloride (98-107) mmol/L Carbon Dioxide (22-30) mmol/L Anion Gap mmol/L BUN (9-20) mg/dL Creatinine (0.66-1.25) mg/dL Est GFR (CKD-EPI)AfAm (>60 ml/min/1.73 sqM) Est GFR (CKD-EPI)NonAf (>60 ml/min/1.73 sqM) Glucose (74-99) mg/dL Calcium (8.4-10.2) mg/dL Magnesium (1.6-2.3) mg/dL Total Bilirubin (0.2-1.3) mg/dL AST (17-59) U/L ALT (21-72) U/L Alkaline Phosphatase (38-126) U/L Total Creatine Kinase (55-170) U/L CK-MB (CK-2) (0.0-2.4) ng/mL CK-MB (CK-2) Rel Index Troponin I (0.000-0.034) ng/mL Total Protein (6.3-8.2) g/dL Albumin (3.5-5.0) g/dL Critical Care Time Critical Care Time: Yes Total Critical Care Time: 35 Disposition Clinical Impression: Unstable angina pectoris Disposition: ADMITTED IP TO THIS [facility] Referrals: Jason Isaac MD [Primary Care Provider] - 1-2 days Time of Disposition: 14:52
[2018-05-30 13:50] LABS: Basophils # (A) 0.1 k/uL (0-0.2); Basophils % (A) 0 %; Eosinophils # (A) 0.7 k/uL (0-0.7); Eosinophils % (A) 5 %; HCT 31.6 % (39.0-53.0); Hypochromasia Marked; Lymphocytes # (A) 2.1 k/uL (1.0-4.8); Lymphocytes % (A) 15 %; MCH 26.5 pg (25.0-35.0); MCV 85.5 fL (80.0-100.0); Mean Platelet Volume 7.2; Monocytes # (A) 0.8 k/uL (0-1.0); Monocytes % (A) 6 %; Neutrophils # (A) 10.3 k/uL (1.3-7.7); Neutrophils % (A) 73 %; RBC 3.69 m/uL (4.30-5.90); RDW 15.2 % (11.5-15.5); WBC 14.1 k/uL (3.8-10.6)
[2018-05-30 13:51] LABS: HGB 9.8 gm/dL (13.0-17.5); Platelet Count 512 k/uL (150-450)
[2018-05-30 13:54] LABS: Albumin 3.5 g/dL (3.5-5.0); Magnesium 1.7 mg/dL (1.6-2.3); Potassium 4.7 mmol/L (3.5-5.1); Total Bilirubin 0.6 mg/dL (0.2-1.3); Total Protein 6.2 g/dL (6.3-8.2)
[2018-05-30 13:56] LABS: INR 0.9 (<1.2); Partial Thromboplastin Time 22.9 sec (22.0-30.0); Prothrombin Time 9.4 sec (9.0-12.0)
--- NOTE | 2018-05-30 14:00 | XR ---
EXAMINATION TYPE: XR chest 2V DATE OF EXAM: 05/30/2018 COMPARISON: 03/27/2018 TECHNIQUE: PA and lateral views submitted. HISTORY: Chest pain FINDINGS: Subsegmental changes at the left lung base. No overt failure or pneumothorax. No sizable pleural effu shira. Degenerative change of the spine with curvature noted. Cardiac device and cardiomegaly are stab le. Biapical pleural thickening. Interstitial septal thickening at the lung bases suggest chronic int erstitial lung disease. IMPRESSION: 1. Left basilar atelectasis favored over infiltrate correlate clinically. 2. Cardiomegaly. Mild prominence of the ascending aorta suspected, correlate for aneurysm. 3. Correlate for chronic interstitial lung disease.
[2018-05-30 14:14] LABS: Creatine Kinase MB 0.8 ng/mL (0.0-2.4)
[2018-05-30 14:25] LABS: Troponin I 0.068 ng/mL (0.000-0.034)
[2018-05-30] MEDS ORDERED: HEPARIN SODIUM,PORCINE 5,000 UNIT/ML 1 ML VIAL IV ONE (14:50)
[2018-05-30] MEDS ORDERED: NITROGLYCERIN SL TABS 0.4 MG TAB SUBLINGUAL PRN (14:52)
[2018-05-30] MEDS ORDERED: HEPARIN SOD,PORK IN 0.45% NACL 25,000 UNIT in 0.45% NACL 1 500ML.BAG IV SCH ×2 (15:00)
[2018-05-30] MEDS ORDERED: HEPARIN SODIUM,PORCINE 5,000 UNIT/ML 1 ML VIAL IV PRN (15:00)
[2018-05-30 16:29] LABS: Glucose,Whole Blood 177 mg/dL (75-99)
[2018-05-30] MEDS ORDERED: TEMAZEPAM 15 MG CAP PO PRN (17:36)
[2018-05-30] MEDS: CARVEDILOL 6.25 MG TAB PO SCH (18:19)
[2018-05-30] MEDS: NITROGLYCERIN OINT 1 INCH/GM PACKET TOPICAL SCH (18:19)
[2018-05-30] MEDS: INSULIN ASPART 100 UNIT/ML 1 ML 10 ML VIAL SQ SCH ×2 (18:19→22:03)
[2018-05-30 19:57] LABS: Creatine Kinase MB 0.7 ng/mL (0.0-2.4)
[2018-05-30 20:10] LABS: Troponin I 0.05 ng/mL (0.000-0.034)
[2018-05-30] MEDS ORDERED: ACETAMINOPHEN TAB 325 MG TAB PO PRN (20:46)
[2018-05-30] MEDS: hydrALAZINE HCL 25 MG TAB PO SCH (20:55)
[2018-05-30] MEDS ORDERED: PRAVASTATIN SODIUM 40 MG TAB PO SCH (21:00)
[2018-05-30] MEDS ORDERED: INSULIN ASPART 100 UNIT/ML 1 ML 10 ML VIAL SQ SCH (21:00)
[2018-05-30 21:11] LABS: Glucose,Whole Blood 218 mg/dL (75-99)
[2018-05-30] MEDS: INSULIN DETEMIR 100 UNIT/ML 10 ML VIAL SQ SCH ×2 (21:15→22:02)
[2018-05-30] MEDS: GABAPENTIN 300 MG CAP PO SCH (22:03)
[2018-05-31 02:50] LABS: Hemoglobin A1C 6.4 % (4.0-6.0)
[2018-05-31 03:43] LABS: Cholesterol 124 mg/dL (<200); HDL Cholesterol 42 mg/dL (40-60); LDL Cholesterol,Calculated 53 mg/dL (0-99); Triglycerides 147 mg/dL (<150)
[2018-05-31 03:57] LABS: Creatine Kinase MB 0.6 ng/mL (0.0-2.4)
[2018-05-31 04:07] LABS: Troponin I 0.05 ng/mL (0.000-0.034)
[2018-05-31] MEDS: NITROGLYCERIN OINT 1 INCH/GM PACKET TOPICAL SCH ×3 (05:37→12:24)
[2018-05-31 06:05] LABS: Glucose,Whole Blood 102 mg/dL (75-99)
[2018-05-31] MEDS ORDERED: LEVOTHYROXINE 50 MCG TAB PO SCH (06:30)
[2018-05-31 07:51] VITALS: TEMP 98.1
[2018-05-31 08:14] LABS: Calcium 8.6 mg/dL (8.4-10.2); Potassium 4.4 mmol/L (3.5-5.1)
[2018-05-31] MEDS ORDERED: ALLOPURINOL 300 MG TAB PO SCH (09:00)
[2018-05-31] MEDS ORDERED: ASPIRIN 325 MG TAB PO SCH (09:00)
[2018-05-31] MEDS ORDERED: ISOSORBIDE MONONITRATE ER 30 MG TAB.ER.24H PO SCH (09:00)
[2018-05-31] MEDS ORDERED: ASCORBIC ACID 500 MG TAB PO SCH (09:00)
[2018-05-31] MEDS ORDERED: NON-FORMULARY DRUG (Aspirin Ec 81 MG) PO SCH (09:00)
[2018-05-31] MEDS ORDERED: PANTOPRAZOLE 40 MG TABLET PO SCH (09:00)
[2018-05-31] MEDS ORDERED: predniSONE 5 MG TAB PO SCH (09:00)
[2018-05-31] MEDS ORDERED: CHOLECALCIFEROL 1,000 UNIT TAB PO SCH (09:00)
[2018-05-31 09:36] LABS: Glucose,Whole Blood 96 mg/dL (75-99)
[2018-05-31] MEDS: INSULIN ASPART 100 UNIT/ML 1 ML 10 ML VIAL SQ SCH ×2 (09:51→12:24)
[2018-05-31] MEDS: hydrALAZINE HCL 25 MG TAB PO SCH (09:52)
[2018-05-31] MEDS: CARVEDILOL 6.25 MG TAB PO SCH (09:52)
[2018-05-31] MEDS: GABAPENTIN 300 MG CAP PO SCH (09:53)
--- NOTE | 2018-05-31 10:49 | P.CRDCN ---
History of Present Illness Consult date: 05/31/18 Chief complaint: Chest discomfort History of present illness: This is a pleasant 78-year-old gentleman who I see in the office as an outpatient with a past medical history diabetes, hypertension, dyslipidemia, and chronic lung disease, who is also status post AICD, presented to the hospital complaining of chest discomfort. The patient was in his usual state of health until yesterday when he was sleeping at night when he woke up from sleep complaining of chest discomfort as a pressure in the chest with some radiation to the neck. He presented to the emergency room where he was found to be hypertensive. The EKG was checked and showed sinus rhythm without any significant ST or T- wave abnormalities. The cardiac enzymes were checked and came in to be slightly abnormal but they are flat across support. The patient underwent a heart catheterization in March 2017 and that revealed mild nonobstructive coronary artery disease. I feel that the discomfort in the chest is related to uncontrolled hypertension. I did increase the dose of hydralazine to 25 mg by mouth 3 times a day and also increase the dose of Imdur to 60 mg by mouth daily. I recommended keeping the patient overnight to tomorrow but the patient expressed the wishes that he would like to go home. 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 History of Any Multi-Drug Resistant Organisms: None Reported Past Surgical History: AICD, Back Surgery, Heart Catheterization, Pacemaker, Tonsillectomy Additional Past Surgical History / Comment(s): Biventricular AICD placement, back surgery 5, cardiac catheterization, tonsillectomy; colonoscopy Past Anesthesia/Blood Transfusion Reactions: No Reported Reaction Additional Past Anesthesia/Blood Transfusion Reaction / Comment(s): blood transfusion-no reaction Type of Cardiac Device: Permanent Pacemaker, AICD Device Placement Date:: 2016 Smoking Status: Former smoker - Past Family History Mother Family Medical History: No Reported History Father History Unknown: Yes Family Medical History: No Reported History Additional Family Medical History / Comment(s): Father was healthy and lived to be 88yrs old. Medications and Allergies Home Medications Medication Instructions Recorded Confirmed Type Allopurinol 300 mg PO DAILY 05/31/16 05/30/18 History Insulin Detemir [Levemir Flextouch] 30 units SQ HS 05/31/16 05/30/18 History Pantoprazole Sodium 40 mg PO DAILY 05/31/16 05/30/18 History Pravastatin Sodium 40 mg PO HS 05/31/16 05/30/18 History Carvedilol [Coreg] 6.25 mg PO BID 01/09/17 05/30/18 History Ascorbic Acid [Vitamin C] 500 mg PO DAILY 09/23/17 05/30/18 History Cholecalciferol [Vitamin D3] 1,000 unit PO DAILY 09/23/17 05/30/18 History Insulin Aspart [NovoLOG Flexpen] See Protocol SQ AC-TID 09/23/17 05/30/18 History Levothyroxine Sodium [Synthroid] 50 mcg PO DAILY 03/27/18 05/30/18 History predniSONE 5 mg PO DAILY 04/30/18 05/30/18 History Gabapentin [Neurontin] 300 mg PO TID 05/06/18 05/30/18 History Isosorbide Mononitrate [Isosorbide 30 mg PO DAILY 05/06/18 05/30/18 History Mononitrate ER] hydrALAZINE HCL 25 mg PO BID 05/06/18 05/30/18 History Aspirin EC [Ecotrin Low Dose] 81 mg PO DAILY #0 05/09/18 05/30/18 Rx Allergies Allergy/AdvReac Type Severity Reaction Status Date / Time amlodipine Allergy Swelling Verified 05/30/18 14:00 doxycycline Allergy Anaphylaxis Verified 05/30/18 14:00 Iodinated Contrast- Oral and Allergy Anaphylaxis Verified 05/30/18 14:00 IV Dye iodine Allergy Rash/Hives Verified 05/30/18 14:00 metronidazole [From Flagyl] Allergy Rash/Hives Verified 05/30/18 14:00 shrimp Allergy Rash/Hives Verified 05/30/18 14:00 acarbose AdvReac Abdominal Verified 05/30/18 14:00 Pain amoxicillin trihydrate AdvReac Nausea & Verified 05/30/18 14:00 [From Augmentin] Vomiting potassium clavulanate AdvReac Nausea & Verified 05/30/18 14:00 [From Augmentin] Vomiting Physical Exam Vitals: Vital Signs Temp Pulse Pulse Resp BP BP Pulse Ox 05/31/18 07:45 98.1 F 60 12 118/57 93 L 05/31/18 04:00 97.0 F L 70 18 145/78 96 05/31/18 00:00 97.2 F L 76 17 160/80 95 05/30/18 20:00 97.8 F 85 18 185/77 94 L 05/30/18 16:20 64 16 05/30/18 16:10 97 F L 64 16 167/72 95 05/30/18 14:18 75 16 150/67 97 05/30/18 13:19 18 05/30/18 13:01 98.3 F 71 18 132/57 96 Intake and Output 05/30/18 05/31/18 05/31/18 22:59 06:59 14:59 Intake Total 253.333 292.752 Output Total 750 Balance 253.333 -457.248 Intake: IV 100 Heparin Sod,Pork in 0.45% 100 NaCl 25,000 unit In 0.45 % NaCl 1 500ml.bag @ 10. 807 UNITS/KG/HR 20 mls/hr IV .Q24H [facility] Rx#: [id number] Intake, IV Titration 133.333 192.752 Amount Heparin Sod,Pork in 0.45% 133.333 192.752 NaCl 25,000 unit In 0.45 % NaCl 1 500ml.bag @ 10. 807 UNITS/KG/HR 20 mls/hr IV .Q24H [facility] Rx#: [id number] Oral 120 Output: Urine 750 Other: Weight 89 kg - Constitutional General appearance: no acute distress - Respiratory Respiratory: bilateral: CTA - Cardiovascular Rhythm: regular Heart sounds: normal: S1, S2 Results 05/30/18 13:14 05/31/18 02:52 Cardiac Enzymes 05/30/18 05/30/18 05/30/18 Range/Units 13:14 13:14 19:07 AST 16 L (17-59) U/L CK-MB (CK-2) 0.8 0.7 (0.0-2.4) ng/mL Troponin I 0.068 H* 0.050 H* (0.000-0.034) ng/mL 05/31/18 Range/Units 02:52 AST (17-59) U/L CK-MB (CK-2) 0.6 (0.0-2.4) ng/mL Troponin I 0.050 H* (0.000-0.034) ng/mL Coagulation 05/30/18 05/30/18 05/31/18 Range/Units 13:14 21:10 02:52 PT 9.4 (9.0-12.0) sec APTT 22.9 29.0 34.8 H (22.0-30.0) sec Lipids 05/31/18 Range/Units 02:52 Triglycerides 147 (<150) mg/dL Cholesterol 124 (<200) mg/dL HDL Cholesterol 42 (40-60) mg/dL CBC 05/30/18 Range/Units 13:14 WBC 14.1 H (3.8-10.6) k/uL RBC 3.69 L (4.30-5.90) m/uL Hgb 9.8 L D (13.0-17.5) gm/dL Hct 31.6 L (39.0-53.0) % Plt Count 512 H D (150-450) k/uL Comprehensive Metabolic Panel 05/30/18 05/31/18 Range/Units 13:14 02:52 Sodium 140 142 (137-145) mmol/L Potassium 4.7 4.4 (3.5-5.1) mmol/L Chloride 101 107 (98-107) mmol/L Carbon Dioxide 26 25 (22-30) mmol/L BUN 15 17 (9-20) mg/dL Creatinine 1.28 H 1.37 H (0.66-1.25) mg/dL Glucose 205 H 113 H (74-99) mg/dL Calcium 9.0 8.6 (8.4-10.2) mg/dL AST 16 L (17-59) U/L ALT 20 L (21-72) U/L Alkaline Phosphatase 73 (38-126) U/L Total Protein 6.2 L (6.3-8.2) g/dL Albumin 3.5 (3.5-5.0) g/dL Current Medications Generic Name Dose Route Start Last Admin Trade Name Fernando PRN Reason Stop Dose Admin Acetaminophen 650 mg 05/30/18 20:46 05/30/18 21:04 Tylenol Tab PO 650 mg Q4HR PRN Administration Fever and/ or MILD Pain Allopurinol 300 mg 05/31/18 09:00 05/31/18 09:52 Zyloprim PO 300 mg DAILY [facility] Administration Ascorbic Acid 500 mg 05/31/18 09:00 05/31/18 09:53 Vitamin C PO 500 mg DAILY [facility] Administration Aspirin 325 mg 05/31/18 09:00 05/31/18 09:52 Aspirin PO 325 mg DAILY [facility] Administration Carvedilol 6.25 mg 05/30/18 18:30 05/31/18 09:52 Coreg PO 6.25 mg AC-BID [facility] Administration Cholecalciferol 1,000 unit 05/31/18 09:00 05/31/18 09:53 Vitamin D3 PO 1,000 unit DAILY [facility] Administration Gabapentin 300 mg 05/30/18 22:00 05/31/18 09:53 Neurontin PO 300 mg TID [facility] Administration Heparin Sodium (Porcine) 0 unit 05/30/18 15:00 Heparin IV PER PROTOCOL PRN Low PTT Protocol Hydralazine HCl 25 mg 05/30/18 21:00 05/31/18 09:52 Apresoline PO 25 mg BID [facility] Administration Heparin Sodium/Sodium Chloride 500 mls @ 20 mls/hr 05/30/18 15:00 05/31/18 05 :37 25,000 unit/ Sodium Chloride IV 16.8 units/kg/hr .Q24H [facility] 31.09 mls/hr Titration Protocol 10.807 UNITS/KG/HR Insulin Aspart 0 unit 05/30/18 17:56 05/31/18 09:51 Novolog SQ Not Given ACHS [facility] Protocol Insulin Detemir 30 unit 05/30/18 21:00 05/30/18 22:02 Levemir SQ 30 unit HS [facility] Administration Isosorbide Mononitrate 30 mg 05/31/18 09:00 05/31/18 09:54 Imdur PO 30 mg DAILY [facility] Administration Levothyroxine Sodium 50 mcg 05/31/18 06:30 05/31/18 09:52 Synthroid PO 50 mcg 0630 [facility] Administration Nitroglycerin 1 inch 05/30/18 18:00 05/31/18 07:48 Nitro-Bid Oint TOPICAL 1 inch Q6HR [facility] Administration Nitroglycerin 0.4 mg 05/30/18 14:52 Nitrostat SUBLINGUAL Q5M PRN Chest Pain Pantoprazole Sodium 40 mg 05/31/18 09:00 05/31/18 09:54 Protonix PO 40 mg DAILY [facility] Administration Pravastatin Sodium 40 mg 05/30/18 21:00 05/30/18 21:16 Pravachol PO 40 mg HS [facility] Administration Prednisone 5 mg 05/31/18 09:00 05/31/18 09:53 PO 5 mg DAILY [facility] Administration Temazepam 15 mg 05/30/18 17:36 05/30/18 21:05 Restoril PO 15 mg HS PRN Administration Insomnia Intake and Output 05/30/18 05/31/18 05/31/18 22:59 06:59 14:59 Intake Total 253.333 292.752 Output Total 750 Balance 253.333 -457.248 Intake: IV 100 Heparin Sod,Pork in 0.45% 100 NaCl 25,000 unit In 0.45 % NaCl 1 500ml.bag @ 10. 807 UNITS/KG/HR 20 mls/hr IV .Q24H [facility] Rx#: [id number] Intake, IV Titration 133.333 192.752 Amount Heparin Sod,Pork in 0.45% 133.333 192.752 NaCl 25,000 unit In 0.45 % NaCl 1 500ml.bag @ 10. 807 UNITS/KG/HR 20 mls/hr IV .Q24H [facility] Rx#: [id number] Oral 120 Output: Urine 750 Other: Weight 89 kg 05/30/18 13:14 05/31/18 02:52 Assessment and Plan Assessment: Assessment #1 chest discomfort #2 mildly abnormal cardiac enzymes #3 uncontrolled hypertension Plan #1 the abnormal cardiac enzymes is related to uncontrolled hypertension #2 recent heart catheterization showed mild nonobstructive CAD #3 increase the dose of Imdur and increase the dose of hydralazine #4 the patient can be discharged home
[2018-05-31 11:25] VITALS: BP 163/70; PULSE 70; RESP 16
[2018-05-31 11:39] LABS: Glucose,Whole Blood 201 mg/dL (75-99)
[2018-05-31 12:26] LABS: Basophils % (A) 0 %; Eosinophils # (A) 0.6 k/uL (0-0.7); Eosinophils % (A) 5 %; HCT 27.2 % (39.0-53.0); Hypochromasia Marked; Lymphocytes # (A) 3.5 k/uL (1.0-4.8); Lymphocytes % (A) 32 %; MCH 26.8 pg (25.0-35.0); MCHC 30.3 g/dL (31.0-37.0); MCV 88.4 fL (80.0-100.0); Mean Platelet Volume 9.2; Monocytes # (A) 0.9 k/uL (0-1.0); Monocytes % (A) 8 %; Neutrophils # (A) 5.5 k/uL (1.3-7.7); Neutrophils % (A) 51 %; Platelet Count 368 k/uL (150-450); RBC 3.07 m/uL (4.30-5.90); RDW 15.3 % (11.5-15.5); WBC 10.8 k/uL (3.8-10.6)
[2018-05-31 12:29] LABS: HGB 8.2 gm/dL (13.0-17.5)
[2018-05-31] MEDS ORDERED: hydrALAZINE HCL 25 MG TAB PO SCH (16:00)
--- NOTE | 2018-05-31 17:03 | P.HPIM ---
History of Present Illness H&P Date: 05/31/18 Chief Complaint: Chest tightness Patient is a 78-year-old male with a known history of hypertension, diabetes and history of recent GI bleed, and also chronic lung disease, history of AICD placement and multiple other medical problems came to the hospital with complaints of chest discomfort. Patient felt chest tightness yesterday when he was sleeping at night. He woke up with chest discomfort and pressure-like sensation radiating to the neck. Associated some shortness of breath and dizziness. Patient was brought to the hospital for further evaluation. Patient was also found to have uncontrolled hypertension on admission. No complaints of cough or sputum production. No headache or dizziness or lightheadedness at this time. Chest discomfort lasted until he came to ER. Currently her emesis much improved. EKG showed sinus rhythm with nonspecific ST-T wave changes Troponin 0.0503 Chest x-ray showed left basilar atelectasis favored over infiltrate correlate clinically. Cardizem IV. Mild prominence of ascending aorta suspected. Correlate for aneurysm. Correlate for chronic interstitial lung disease. Patient had cardiac catheterization in March 2017 and revealed mild nonobstructive coronary artery disease. Hemoglobin 9.8 and WBC 14.8 Recent upper and lower endoscopy on 05/01/2018 reporting small hiatal hernia, no esophagitis or complicated reflux disease, mild antral gastritis, sigmoid diverticulosis with no evidence of acute diverticulitis, multiple polyps, low- grade internal hemorrhoid Review of Systems Constitutional: Patient denies any fever or chills . No generalized weakness or weight loss. Abdomen: Patient denied nausea vomiting and diarrhea and abdominal pain. Cardiovascular: Patient denies any chest pain or short of breath no palpitations. Respiratory: patient denied any cough is from production. No shortness of breath Neurologic: Patient denied any numbness or tingling headache. Musculoskeletal: Patient denies any complaints of joint swelling or deformity. Skin: Negative Psychiatric: Negative Endocrine: No heat or cold intolerance. No recent weight gain. Genitourinary: No dysuria or hematuria. 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 History of Any Multi-Drug Resistant Organisms: None Reported Past Surgical History: AICD, Back Surgery, Heart Catheterization, Pacemaker, Tonsillectomy Additional Past Surgical History / Comment(s): Biventricular AICD placement, back surgery 5, cardiac catheterization, tonsillectomy; colonoscopy Past Anesthesia/Blood Transfusion Reactions: No Reported Reaction Additional Past Anesthesia/Blood Transfusion Reaction / Comment(s): blood transfusion-no reaction Type of Cardiac Device: Permanent Pacemaker, AICD Device Placement Date:: 2016 Smoking Status: Former smoker - Past Family History Mother Family Medical History: No Reported History Father History Unknown: Yes Family Medical History: No Reported History Additional Family Medical History / Comment(s): Father was healthy and lived to be 88yrs old. Medications and Allergies Home Medications Medication Instructions Recorded Confirmed Type Allopurinol 300 mg PO DAILY 05/31/16 05/30/18 History Insulin Detemir [Levemir Flextouch] 30 units SQ HS 05/31/16 05/30/18 History Pantoprazole Sodium 40 mg PO DAILY 05/31/16 05/30/18 History Pravastatin Sodium 40 mg PO HS 05/31/16 05/30/18 History Carvedilol [Coreg] 6.25 mg PO BID 01/09/17 05/30/18 History Ascorbic Acid [Vitamin C] 500 mg PO DAILY 09/23/17 05/30/18 History Cholecalciferol [Vitamin D3] 1,000 unit PO DAILY 09/23/17 05/30/18 History Insulin Aspart [NovoLOG Flexpen] See Protocol SQ AC-TID 09/23/17 05/30/18 History Levothyroxine Sodium [Synthroid] 50 mcg PO DAILY 03/27/18 05/30/18 History predniSONE 5 mg PO DAILY 04/30/18 05/30/18 History Gabapentin [Neurontin] 300 mg PO TID 05/06/18 05/30/18 History Aspirin EC [Ecotrin Low Dose] 81 mg PO DAILY #0 05/09/18 05/30/18 Rx Isosorbide Mononitrate ER [Imdur] 60 mg PO DAILY #30 tab.er.24h 05/31/18 Rx hydrALAZINE HCL [Apresoline] 25 mg PO TID #90 tab 05/31/18 Rx Allergies Allergy/AdvReac Type Severity Reaction Status Date / Time amlodipine Allergy Swelling Verified 05/30/18 14:00 doxycycline Allergy Anaphylaxis Verified 05/30/18 14:00 Iodinated Contrast- Oral and Allergy Anaphylaxis Verified 05/30/18 14:00 IV Dye iodine Allergy Rash/Hives Verified 05/30/18 14:00 metronidazole [From Flagyl] Allergy Rash/Hives Verified 05/30/18 14:00 shrimp Allergy Rash/Hives Verified 05/30/18 14:00 acarbose AdvReac Abdominal Verified 05/30/18 14:00 Pain amoxicillin trihydrate AdvReac Nausea & Verified 05/30/18 14:00 [From Augmentin] Vomiting potassium clavulanate AdvReac Nausea & Verified 05/30/18 14:00 [From Augmentin] Vomiting Physical Exam Vitals: Vital Signs Temp Pulse Pulse Resp BP BP Pulse Ox 05/31/18 11:25 70 16 163/70 93 L 05/31/18 07:45 98.1 F 60 12 118/57 93 L 05/31/18 04:00 97.0 F L 70 18 145/78 96 05/31/18 00:00 97.2 F L 76 17 160/80 95 05/30/18 20:00 97.8 F 85 18 185/77 94 L 05/30/18 16:20 64 16 05/30/18 16:10 97 F L 64 16 167/72 95 05/30/18 14:18 75 16 150/67 97 05/30/18 13:19 18 05/30/18 13:01 98.3 F 71 18 132/57 96 Intake and Output 05/30/18 05/31/18 05/31/18 22:59 06:59 14:59 Intake Total 253.333 292.752 Output Total 750 Balance 253.333 -457.248 Intake: IV 100 Heparin Sod,Pork in 0.45% 100 NaCl 25,000 unit In 0.45 % NaCl 1 500ml.bag @ 10. 807 UNITS/KG/HR 20 mls/hr IV .Q24H [facility] Rx#: [id number] Intake, IV Titration 133.333 192.752 Amount Heparin Sod,Pork in 0.45% 133.333 192.752 NaCl 25,000 unit In 0.45 % NaCl 1 500ml.bag @ 10. 807 UNITS/KG/HR 20 mls/hr IV .Q24H [facility] Rx#: [id number] Oral 120 Output: Urine 750 Other: Weight 89 kg PHYSICAL EXAMINATION: Patient is lying in the bed comfortably, no acute distress, awake alert and oriented.. HEENT: Normocephalic. Neck is supple. Pupils reactive. Nostrils clear. Oral cavity is moist. Ears reveal no drainage. Neck reveals no JVD, carotid bruits, or thyromegaly. CHEST EXAMINATION: Trachea is central. Symmetrical expansion. Bibasilar diminished air entry. Lung ramirez clear to auscultation and percussion. CARDIAC: Normal S1, S2 with no gallops. No murmurs ABDOMEN: Soft. Bowel sounds normal. No organomegaly. No abdominal bruits. Extremities: reveal no edema. No clubbing or cyanosis Neurologically awake, alert, oriented x3 with well-coordinated movements. No focal deficits noted Skin: No rash or skin lesions. Psychiatric: Coperative. Nonsuicidal Musculoskeletal: No joint swelling or deformity. Normal range of motion. Results CBC & Chem 7: 05/31/18 02:52 05/31/18 02:52 Labs: Abnormal Lab Results - Last 24 Hours (Table) 05/30/18 05/30/18 05/30/18 Range/Units 13:14 13:14 13:14 WBC 14.1 H (3.8-10.6) k/uL RBC 3.69 L (4.30-5.90) m/uL Hgb 9.8 L D (13.0-17.5) gm/dL Hct 31.6 L (39.0-53.0) % Plt Count 512 H D (150-450) k/uL Neutrophils # 10.3 H (1.3-7.7) k/uL APTT (22.0-30.0) sec Creatinine 1.28 H (0.66-1.25) mg/dL Glucose 205 H (74-99) mg/dL POC Glucose (mg/dL) (75-99) mg/dL AST 16 L (17-59) U/L ALT 20 L (21-72) U/L Total Creatine Kinase 41 L (55-170) U/L Troponin I 0.068 H* (0.000-0.034) ng/mL Total Protein 6.2 L (6.3-8.2) g/dL 05/30/18 05/30/18 05/30/18 Range/Units 16:23 19:07 21:10 WBC (3.8-10.6) k/uL RBC (4.30-5.90) m/uL Hgb (13.0-17.5) gm/dL Hct (39.0-53.0) % Plt Count (150-450) k/uL Neutrophils # (1.3-7.7) k/uL APTT (22.0-30.0) sec Creatinine (0.66-1.25) mg/dL Glucose (74-99) mg/dL POC Glucose (mg/dL) 177 H 218 H (75-99) mg/dL AST (17-59) U/L ALT (21-72) U/L Total Creatine Kinase 36 L (55-170) U/L Troponin I 0.050 H* (0.000-0.034) ng/mL Total Protein (6.3-8.2) g/dL 05/31/18 05/31/18 05/31/18 Range/Units 02:52 02:52 02:52 WBC (3.8-10.6) k/uL RBC (4.30-5.90) m/uL Hgb (13.0-17.5) gm/dL Hct (39.0-53.0) % Plt Count (150-450) k/uL Neutrophils # (1.3-7.7) k/uL APTT 34.8 H (22.0-30.0) sec Creatinine 1.37 H (0.66-1.25) mg/dL Glucose 113 H (74-99) mg/dL POC Glucose (mg/dL) (75-99) mg/dL AST (17-59) U/L ALT (21-72) U/L Total Creatine Kinase 35 L (55-170) U/L Troponin I 0.050 H* (0.000-0.034) ng/mL Total Protein (6.3-8.2) g/dL 05/31/18 Range/Units 06:03 WBC (3.8-10.6) k/uL RBC (4.30-5.90) m/uL Hgb (13.0-17.5) gm/dL Hct (39.0-53.0) % Plt Count (150-450) k/uL Neutrophils # (1.3-7.7) k/uL APTT (22.0-30.0) sec Creatinine (0.66-1.25) mg/dL Glucose (74-99) mg/dL POC Glucose (mg/dL) 102 H (75-99) mg/dL AST (17-59) U/L ALT (21-72) U/L Total Creatine Kinase (55-170) U/L Troponin I (0.000-0.034) ng/mL Total Protein (6.3-8.2) g/dL Thrombosis Risk Factor Assmnt - Choose All That Apply Any of the Below Risk Factors Present?: No Other Risk Factors: No Each Risk Factor Represents 3 Points: Age 75 years or older Other congenital or acquired thrombophilia - If yes, enter type in comment: No Thrombosis Risk Factor Assessment Total Risk Factor Score: 3 Thrombosis Risk Factor Assessment Level: Very Low Risk Assessment and Plan Assessment: Chest discomfort / heaviness likely due to uncontrolled hypertension and underlying interstitial lung disease Mild troponin leak. With no evidence of acute EKG changes. Recent history of GI bleed. Status post EGD and colonoscopy, polypectomy. Normocytic anemia with hemoglobin level IX.8 History of ischemic cardiopathy status post AICD. Ejection fraction normal and the recent echocardiogram History of CVA/TIA with no residual weakness GERD Diabetes type 2 insulin-dependent Hypertension. Uncontrolled Chronic kidney disease stage III Hypothyroidism COPD stable Plan: Patient will be continued on telemetry monitoring. Start back on home medications. Hydralazine and Imdur dose increased. Cardiology has seen the patient. Recommended to continue to monitor for 24 hours but patient is eager to be discharged. Continue with insulin dosing and follow-up H&H and renal function. Further recommendations based on the clinical course Prognosis is guarded with multiple medical problems and comorbid conditions. Time with Patient: Greater than 30
--- NOTE | 2018-05-31 17:08 | P.DS ---
Providers Date of admission: 05/30/18 14:52 Expected date of discharge: 05/31/18 Attending physician: Bola Trejo Consults: 05/30/18 14:52 Consult Physician Urgent Consulting Provider: [facility] Reason/Comments: Unstable angina Do you want consulting provider notified?: Yes Primary care physician: Jason Isaac [facility] Course: Discharge diagnosis Chest discomfort / heaviness likely due to uncontrolled hypertension and underlying interstitial lung disease. ACS ruled out Mild troponin leak. With no evidence of acute EKG changes. Recent history of GI bleed. Status post EGD and colonoscopy, polypectomy. Normocytic anemia with hemoglobin level 9.8 History of ischemic cardiopathy status post AICD. Ejection fraction normal and the recent echocardiogram History of CVA/TIA with no residual weakness GERD Diabetes type 2 insulin-dependent Hypertension. Uncontrolled Chronic kidney disease stage III Hypothyroidism COPD stable Hospital course Patient is a 78-year-old male with a known history of hypertension, diabetes and history of recent GI bleed, and also chronic lung disease, history of AICD placement and multiple other medical problems came to the hospital with complaints of chest discomfort. Patient felt chest tightness yesterday when he was sleeping at night. He woke up with chest discomfort and pressure-like sensation radiating to the neck. Associated some shortness of breath and dizziness. Patient was brought to the hospital for further evaluation. Patient was also found to have uncontrolled hypertension on admission. No complaints of cough or sputum production. No headache or dizziness or lightheadedness at this time. Chest discomfort lasted until he came to ER. Currently her emesis much improved. EKG showed sinus rhythm with nonspecific ST-T wave changes Troponin 0.0503 Chest x-ray showed left basilar atelectasis favored over infiltrate correlate clinically. Cardizem IV. Mild prominence of ascending aorta suspected. Correlate for aneurysm. Correlate for chronic interstitial lung disease. Patient had cardiac catheterization in March 2017 and revealed mild nonobstructive coronary artery disease. Hemoglobin 9.8 and WBC 14.8 Recent upper and lower endoscopy on 05/01/2018 reporting small hiatal hernia, no esophagitis or complicated reflux disease, mild antral gastritis, sigmoid diverticulosis with no evidence of acute diverticulitis, multiple polyps, low- grade internal hemorrhoids. Patient denied any hematemesis or melena. Plan: Patient was continued on telemetry monitoring. Started back on home medications. Hydralazine increased to 3 times a day and Imdur dose increased to 60 mg. Cardiology has seen the patient. Recommended to continue to monitor for 24 hours but patient is eager to be discharged. Continued with insulin dosing and follow-up H&H and renal function. Repeat WBC is 10.9 and hemoglobin 8.2. Hemoglobin during last admission was 7.8. Otherwise patient denied any active bleeding hematemesis or melena. Patient was recommended to follow with primary care physician and GI clinic as well as hematology as an outpatient. Otherwise patient is being discharged home today. Discharge physical examination was done and vitals reviewed. Plan discussed with the patient in detail at bedside. Vital Signs 05/31/18 05/31/18 11:25 11:27 Pulse Rate [ 70 Pulse Oximetery ] Respiratory 16 16 Rate Blood Pressure 163/70 [Right Arm] O2 Sat by Pulse 93 L Oximetry Patient Condition at Discharge: Fair Plan - Discharge Summary Discharge Rx Participant: No New Discharge Prescriptions: New hydrALAZINE HCL [Apresoline] 25 mg PO TID #90 tab Isosorbide Mononitrate ER [Imdur] 60 mg PO DAILY #30 tab.er.24h Continue Insulin Detemir [Levemir Flextouch] 30 units SQ HS Allopurinol 300 mg PO DAILY Pravastatin Sodium 40 mg PO HS Pantoprazole Sodium 40 mg PO DAILY Carvedilol [Coreg] 6.25 mg PO BID Cholecalciferol [Vitamin D3] 1,000 unit PO DAILY Ascorbic Acid [Vitamin C] 500 mg PO DAILY Insulin Aspart [NovoLOG Flexpen] See Protocol SQ AC-TID Levothyroxine Sodium [Synthroid] 50 mcg PO DAILY predniSONE 5 mg PO DAILY Gabapentin [Neurontin] 300 mg PO TID Aspirin EC [Ecotrin Low Dose] 81 mg PO DAILY #0 Discontinued Isosorbide Mononitrate [Isosorbide Mononitrate ER] 30 mg PO DAILY hydrALAZINE HCL 25 mg PO BID Discharge Medication List Allopurinol 300 mg PO DAILY 05/31/16 [History] Insulin Detemir [Levemir Flextouch] 30 units SQ HS 05/31/16 [History] Pantoprazole Sodium 40 mg PO DAILY 05/31/16 [History] Pravastatin Sodium 40 mg PO HS 05/31/16 [History] Carvedilol [Coreg] 6.25 mg PO BID 01/09/17 [History] Ascorbic Acid [Vitamin C] 500 mg PO DAILY 09/23/17 [History] Cholecalciferol [Vitamin D3] 1,000 unit PO DAILY 09/23/17 [History] Insulin Aspart [NovoLOG Flexpen] See Protocol SQ AC-TID 09/23/17 [History] Levothyroxine Sodium [Synthroid] 50 mcg PO DAILY 03/27/18 [History] predniSONE 5 mg PO DAILY 04/30/18 [History] Gabapentin [Neurontin] 300 mg PO TID 05/06/18 [History] Aspirin EC [Ecotrin Low Dose] 81 mg PO DAILY #0 05/09/18 [Rx] Isosorbide Mononitrate ER [Imdur] 60 mg PO DAILY #30 tab.er.24h 05/31/18 [Rx] hydrALAZINE HCL [Apresoline] 25 mg PO TID #90 tab 05/31/18 [Rx] Follow up Appointment(s)/Referral(s): Jason Isaac MD [Primary Care Provider] - 1-2 days Quinn Griffin MD [STAFF PHYSICIAN] - 1 Week (Office closed on weekend. Please call to schedule an appointment as a new pt referred by Dr Roth for low hemoglobin. ) Darien Narvaez MD [STAFF PHYSICIAN] - 06/05/18 2:45 pm Patient Instructions/Handouts: Chest Pain (DC) Discharge Disposition: HOME SELF-CARE
[2018-06-01] MEDS ORDERED: ISOSORBIDE MONONITRATE ER 60 MG TAB.ER.24H PO SCH (09:00)
== END 2018-05-31 13:38 | disposition home or self-care (01) | DRG 683 ==
LOC: EC 12:58 → 6SEL 14:52
PROVIDERS: ADMIT Internal Medicine; ATTEND Internal Medicine
DX: I12.9 Hypertensive chronic kidney disease with stage 1 through stage 4 chronic kidney disease, or unspecified chronic kidney disease (principal); J84.9 Interstitial pulmonary disease, unspecified; J98.11 Atelectasis; D64.9 Anemia, unspecified; E03.9 Hypothyroidism, unspecified; E11.22 Type 2 diabetes mellitus with diabetic chronic kidney disease; E78.00 Pure hypercholesterolemia, unspecified; E78.5 Hyperlipidemia, unspecified; J44.9 Chronic obstructive pulmonary disease, unspecified; K21.9 Gastro-esophageal reflux disease without esophagitis; M06.9 Rheumatoid arthritis, unspecified; N18.3 Chronic kidney disease, stage 3 (moderate); Z79.4 Long term (current) use of insulin; Z86.73 Personal history of transient ischemic attack (TIA), and cerebral infarction without residual deficits; Z87.01 Personal history of pneumonia (recurrent); Z87.891 Personal history of nicotine dependence; Z95.810 Presence of automatic (implantable) cardiac defibrillator; I25.5 Ischemic cardiomyopathy; Z88.8 Allergy status to other drugs, medicaments and biological substances; Z88.1 Allergy status to other antibiotic agents; Z91.041 Radiographic dye allergy status; Z79.82 Long term (current) use of aspirin; Z79.890 Hormone replacement therapy; Z79.899 Other long term (current) drug therapy; R74.8 Abnormal levels of other serum enzymes; Z86.010 Personal history of colon polyps; K64.8 Other hemorrhoids; M10.9 Gout, unspecified; Z86.19 Personal history of other infectious and parasitic diseases; K44.9 Diaphragmatic hernia without obstruction or gangrene
CPT/HCPCS: 36415; 71046; 80048; 80053; 80061; 82550; 82553; 83036; 83735; 84484; 85025; 85610; 85730; 93005; 96365; 96376; 99291

== ENCOUNTER → 2018-07-29 | Outpatient (CLI) | payer MEDICARE, BC ==
--- NOTE | 2018-07-30 08:50 | XR ---
EXAMINATION TYPE: XR chest 2V DATE OF EXAM: 07/29/2018 COMPARISON: 05/30/2018 TECHNIQUE: PA and lateral views submitted. HISTORY: cough and congestion FINDINGS: The lungs are clear and there is no pneumothorax, pleural effusion, or focal pneumonia. Cardiac dev ice and cardiomegaly noted. No overt failure. Biapical pleural thickening. Curvature of the spine. Hy pertrophic and degenerative change of the spine. IMPRESSION: 1. No acute process.
== END | disposition home or self-care (01) ==
LOC: RADXRMAIN 15:47
PROVIDERS: ATTEND Internal Medicine
DX: R05 Cough (principal)
CPT/HCPCS: 71046

== ENCOUNTER → 2018-09-17 | Outpatient (CLI) | payer MEDICARE, BC ==
--- NOTE | 2018-09-17 12:54 | XR ---
EXAMINATION TYPE: XR chest 2V DATE OF EXAM: 09/17/2018 COMPARISON: 07/29/2018 TECHNIQUE: PA and lateral views submitted. HISTORY: Cough FINDINGS: The lungs are clear and there is no pneumothorax, pleural effusion, or focal pneumonia. The heart i s enlarged and there is a cardiac device. Hypertrophic changes and degenerative changes of the spine. There is ectasia of the thoracic aorta prominence of the upper mediastinum on the left. IMPRESSION: 1. No acute process. No acute infiltrate. 2. Cardiomegaly with prominence of the upper left mediastinum. Thoracic aortic aneurysm in the differ ential diagnosis. Recommend follow-up CT scan of the chest.
== END | disposition home or self-care (01) ==
LOC: RADXRMAIN 12:28
PROVIDERS: ATTEND Internal Medicine
DX: I51.7 Cardiomegaly (principal); J98.59 Other diseases of mediastinum, not elsewhere classified; R05 Cough
CPT/HCPCS: 71046

== ENCOUNTER → 2018-10-07 | Outpatient (CLI) | payer MEDICARE, BC | LOC: RADCTMAIN 10:30 | PROVIDERS: ATTEND Internal Medicine | DX: Z53.9 Procedure and treatment not carried out, unspecified reason (principal) ==

== ENCOUNTER → 2018-10-13 | Outpatient (CLI) | payer MEDICARE, BC ==
--- NOTE | 2018-10-13 08:49 | CT ---
EXAMINATION TYPE: CT chest wo con DATE OF EXAM: 10/13/2018 COMPARISON: 02/07/2017 HISTORY: Abnormal CXR CT DLP: 319.[address] of the chest was performed with lung and mediastinal window settings submitted. The la ck of contrast limits evaluation of the vascular, mediastinal and parenchymal structures including th e upper abdomen. LUNGS: The lungs are clear and free of infiltrate. No atelectasis. No pulmonary nodule or mass is de tected. No pleural effusion. Persistent basilar subpleural fibrosis with mild bronchiectatic change. Overall appearance may have progressed since the prior study. MEDIASTINUM/RADHA: Thoracic aorta is of normal caliber with limited evaluation given lack of contrast . The heart is not enlarged. No evidence for mediastinal mass. No lymph nodes greater than 1cm. UPPER ABDOMEN: Small layering gallstones identified. OTHER: No significant other abnormality. IMPRESSION: 1. Persistent basilar subpleural fibrosis with mild bronchiectatic change. Overall appearance may madrigal ve progressed since the prior study.
== END | disposition home or self-care (01) ==
LOC: RADCTMAIN 07:42
PROVIDERS: ATTEND Internal Medicine
DX: J84.10 Pulmonary fibrosis, unspecified (principal)
CPT/HCPCS: 71250

== ENCOUNTER → 2018-10-29 | Outpatient (CLI) | payer MEDICARE, BC ==
--- NOTE | 2018-10-29 10:19 | USB ---
Reason for exam: clinical finding. Indicated problem(s): palpable abnormality in the right breast. Physical Findings: Nurse Summary: bilateral prominent tissue posterior nipples, right nipple tenderness on exam (nurse ts). US Breast RT Right limited breast ultrasound including focal area of concern, retroareolar and axilla demonstrates a 2.4 x 2.4 x 0.9cm irregular hypoechoic lesion at the posterior nipple. Left limited breast ultrasound including focal area of concern, retroareolar and axilla demonstrates a 1.4 x 1.6 x 1.2cm irregular hypoechoic lesion at the posterior nipple. Consistent with gynecomastia. These results were verbally communicated with the patient and result sheet given to the patient on 10/29/18. ASSESSMENT: Benign, BI-RAD 2 RECOMMENDATION: Clinical management of the right breast. Manage patient on a clinical basis.
== END | disposition home or self-care (01) ==
LOC: RADUSWWP 09:22
PROVIDERS: ATTEND Internal Medicine
DX: N63.10 Unspecified lump in the right breast, unspecified quadrant (principal)

== ENCOUNTER 2018-11-24 11:02 | Inpatient (IN) | payer MEDICARE, BC ==
[2018-11-24] MEDS ORDERED: ONDANSETRON 4 MG/2 ML VIAL IVP STA (11:58)
[2018-11-24] MEDS ORDERED: SODIUM CHLORIDE 0.9% 1,000 ML IV STA (11:58)
--- NOTE | 2018-11-24 12:02 | ED ---
General Adult HPI - General Chief complaint: Chest Pain Stated complaint: chest pain, flu symptoms Time Seen by Provider: 11/24/18 11:35 Source: patient, family, RN notes reviewed Mode of arrival: wheelchair Limitations: physical limitation - History of Present Illness Initial comments: This is a 78-year-old male who presents emergency department with past medical history significant for having a pacemaker placed. Patient states he woke up this morning and was nauseated and began to vomit. Patient states he also started having diarrhea. Patient states it's ongoing until this time. Patient states he just got out of the bathroom and he did vomit while he was in the. Patient states after she was vomiting quite vigorously he started having some epigastric and lower chest pain. Patient states he feels short of breath as well. Patient denies any recent fever though he stated today he had some chills per patient denies any radiation of this pain. Patient states he was diaphoretic when he was vomiting. Patient states he has minimal epigastric abdominal pain and no pain anywhere else in his abdomen. Patient states no one around him is having similar symptoms. - Related Data Home Medications Medication Instructions Recorded Confirmed Allopurinol 300 mg PO DAILY 05/31/16 08/06/18 Insulin Detemir [Levemir Flextouch] 30 units SQ HS 05/31/16 08/06/18 Pantoprazole Sodium 40 mg PO DAILY 05/31/16 08/06/18 Pravastatin Sodium 40 mg PO HS 05/31/16 08/06/18 Carvedilol [Coreg] 6.25 mg PO BID 01/09/17 08/06/18 Ascorbic Acid [Vitamin C] 500 mg PO DAILY 09/23/17 08/06/18 Cholecalciferol [Vitamin D3] 1,000 unit PO DAILY 09/23/17 08/06/18 Insulin Aspart [NovoLOG Flexpen] See Protocol SQ AC-TID 09/23/17 08/06/18 predniSONE 5 mg PO DAILY 04/30/18 08/06/18 hydrALAZINE HCL [Apresoline] 25 mg PO BID 08/04/18 08/06/18 Previous Rx's Medication Instructions Recorded Aspirin EC [Ecotrin Low Dose] 81 mg PO DAILY #0 05/09/18 Isosorbide Mononitrate ER [Imdur] 60 mg PO DAILY #30 tab.er.24h 05/31/18 Allergies Allergy/AdvReac Type Severity Reaction Status Date / Time amlodipine Allergy Swelling Verified 08/06/18 08:32 doxycycline Allergy Anaphylaxis Verified 08/06/18 08:32 Iodinated Contrast- Oral and Allergy Anaphylaxis Verified 08/06/18 08:32 IV Dye iodine Allergy Rash/Hives Verified 08/06/18 08:32 metronidazole [From Flagyl] Allergy Rash/Hives Verified 08/06/18 08:32 shrimp Allergy Rash/Hives Verified 08/06/18 08:32 acarbose AdvReac Abdominal Verified 08/06/18 08:32 Pain amoxicillin trihydrate AdvReac Nausea & Verified 08/06/18 08:32 [From Augmentin] Vomiting potassium clavulanate AdvReac Nausea & Verified 08/06/18 08:32 [From Augmentin] Vomiting Review of Systems ROS Statement: Those systems with pertinent positive or pertinent negative responses have been documented in the HPI. ROS Other: All systems not noted in ROS Statement are negative. 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 History of Any Multi-Drug Resistant Organisms: None Reported Past Surgical History: AICD, Back Surgery, Heart Catheterization, Pacemaker, Tonsillectomy Additional Past Surgical History / Comment(s): Biventricular AICD placement, back surgery 5, cardiac catheterization, tonsillectomy; colonoscopy Past Anesthesia/Blood Transfusion Reactions: No Reported Reaction Additional Past Anesthesia/Blood Transfusion Reaction / Comment(s): blood transfusion-no reaction Type of Cardiac Device: Permanent Pacemaker, AICD Device Placement Date:: 2016 Past Psychological History: No Psychological Hx Reported Smoking Status: Former smoker Past Alcohol Use History: Occasional Past Drug Use History: None Reported - Past Family History Mother Family Medical History: No Reported History Father History Unknown: Yes Family Medical History: No Reported History Additional Family Medical History / Comment(s): Father was healthy and lived to be 88yrs old. General Exam - General Exam Comments Initial Comments: GENERAL: Patient is well-developed and well-nourished. Patient is nontoxic and well- hydrated and is in mild distress. ENT: Neck is soft and supple. No significant lymphadenopathy is noted. Oropharynx is clear. Dry mucous membranes. Neck has full range of motion without eliciting any pain. EYES: The sclera were anicteric and conjunctiva were pink and moist. Extraocular movements were intact and pupils were equal round and reactive to light. Eyelids were unremarkable. PULMONARY: Unlabored respirations. Good breath sounds bilaterally. No audible rales rhonchi or wheezing was noted. CARDIOVASCULAR: There is a regular rate and rhythm without any murmurs gallops or rubs. Patient states he has some tenderness to palpation of the anterior chest wall ABDOMEN: Patient has minimal epigastric abdominal pain. No palpable organomegaly was noted. There is no palpable pulsatile mass. SKIN: Skin is clear with no lesions or rashes and otherwise unremarkable. NEUROLOGIC: Patient is alert and oriented x3. Cranial nerves II through XII are grossly intact. Motor and sensory are also intact. Normal speech, volume and content. Symmetrical smile. MUSCULOSKELETAL: Normal extremities with adequate strength and full range of motion. LYMPHATICS: No significant lymphadenopathy is noted PSYCHIATRIC: Normal psychiatric evaluation. Normal interpersonal interactions appears functionally intact in deals appropriately with others. No signs of depression. No signs of anxiety. Limitations: physical limitation Course Vital Signs 11/24/18 11/24/18 11/24/18 11:37 12:00 13:00 Temperature 97.8 F Pulse Rate 99 86 73 Respiratory 18 16 16 Rate Blood Pressure 112/60 141/71 153/68 O2 Sat by Pulse 97 98 98 Oximetry Medical Decision Making - Medical Decision Making Patient's EKG shows a paced rhythm at 87 bpm OK interval is 140 QRS is 1:30 for QT intervals 410 QTC is 493. Chest x-ray shows no acute abnormality. I went back and reevaluate the patient after he was hydrated and given Zofran he was sleeping and when I awoke him he felt much better. Patient denied any abdominal pain or chest pain at this time. I spoke with Dr. Chaudhary he agreed to admit the patient admitted the patient and I wrote admitting orders. I may Dr. Chaudhary aware of the elevated troponin as well as a white count. I will be consulting Dr. Griffin - Lab Data Result diagrams: 11/24/18 12:17 11/24/18 12:17 Lab Results 11/24/18 11/24/18 11/24/18 Range/Units 12:17 12:17 12:17 WBC 24.3 H (3.8-10.6) k/uL RBC 5.24 (4.30-5.90) m/uL Hgb 14.7 (13.0-17.5) gm/dL Hct 46.0 (39.0-53.0) % MCV 87.8 (80.0-100.0) fL MCH 28.1 (25.0-35.0) pg MCHC 32.1 (31.0-37.0) g/dL RDW 16.2 H (11.5-15.5) % Plt Count 393 (150-450) k/uL Neutrophils % 72 % Lymphocytes % 18 % Monocytes % 5 % Eosinophils % 3 % Basophils % 0 % Neutrophils # 17.4 H (1.3-7.7) k/uL Lymphocytes # 4.3 (1.0-4.8) k/uL Monocytes # 1.3 H (0-1.0) k/uL Eosinophils # 0.8 H (0-0.7) k/uL Basophils # 0.1 (0-0.2) k/uL Anisocytosis Slight PT (9.0-12.0) sec INR (<1.2) APTT (22.0-30.0) sec Sodium 140 (137-145) mmol/L Potassium 4.6 (3.5-5.1) mmol/L Chloride 102 (98-107) mmol/L Carbon Dioxide 27 (22-30) mmol/L Anion Gap 11 mmol/L BUN 25 H (9-20) mg/dL Creatinine 1.49 H (0.66-1.25) mg/dL Est GFR (CKD-EPI)AfAm 51 (>60 ml/min/1.73 sqM) Est GFR (CKD-EPI)NonAf 44 (>60 ml/min/1.73 sqM) Glucose 217 H (74-99) mg/dL Calcium 9.9 (8.4-10.2) mg/dL Magnesium 1.8 (1.6-2.3) mg/dL Total Bilirubin 0.9 (0.2-1.3) mg/dL AST 18 (17-59) U/L ALT 18 L (21-72) U/L Alkaline Phosphatase 73 (38-126) U/L Total Creatine Kinase 30 L (55-170) U/L CK-MB (CK-2) 0.8 (0.0-2.4) ng/mL CK-MB (CK-2) Rel Index 2.7 Troponin I 0.097 H* (0.000-0.034) ng/mL Total Protein 7.3 (6.3-8.2) g/dL Albumin 3.9 (3.5-5.0) g/dL 11/24/18 Range/Units 12:17 WBC (3.8-10.6) k/uL RBC (4.30-5.90) m/uL Hgb (13.0-17.5) gm/dL Hct (39.0-53.0) % MCV (80.0-100.0) fL MCH (25.0-35.0) pg MCHC (31.0-37.0) g/dL RDW (11.5-15.5) % Plt Count (150-450) k/uL Neutrophils % % Lymphocytes % % Monocytes % % Eosinophils % % Basophils % % Neutrophils # (1.3-7.7) k/uL Lymphocytes # (1.0-4.8) k/uL Monocytes # (0-1.0) k/uL Eosinophils # (0-0.7) k/uL Basophils # (0-0.2) k/uL Anisocytosis PT 9.4 (9.0-12.0) sec INR 0.9 (<1.2) APTT 21.3 L (22.0-30.0) sec Sodium (137-145) mmol/L Potassium (3.5-5.1) mmol/L Chloride (98-107) mmol/L Carbon Dioxide (22-30) mmol/L Anion Gap mmol/L BUN (9-20) mg/dL Creatinine (0.66-1.25) mg/dL Est GFR (CKD-EPI)AfAm (>60 ml/min/1.73 sqM) Est GFR (CKD-EPI)NonAf (>60 ml/min/1.73 sqM) Glucose (74-99) mg/dL Calcium (8.4-10.2) mg/dL Magnesium (1.6-2.3) mg/dL Total Bilirubin (0.2-1.3) mg/dL AST (17-59) U/L ALT (21-72) U/L Alkaline Phosphatase (38-126) U/L Total Creatine Kinase (55-170) U/L CK-MB (CK-2) (0.0-2.4) ng/mL CK-MB (CK-2) Rel Index Troponin I (0.000-0.034) ng/mL Total Protein (6.3-8.2) g/dL Albumin (3.5-5.0) g/dL Disposition Clinical Impression: Gastroenteritis, Chest pain, Leukocytosis Disposition: ADMITTED IP TO THIS HOSP Referrals: Kenyon Chaudhary MD [Primary Care Provider] - 1-2 days Time of Disposition: 13:55
[2018-11-24 12:30] LABS: Anisocytosis Slight; Basophils # (A) 0.1 k/uL (0-0.2); Basophils % (A) 0 %; Eosinophils # (A) 0.8 k/uL (0-0.7); Eosinophils % (A) 3 %; HGB 14.7 gm/dL (13.0-17.5); Lymphocytes # (A) 4.3 k/uL (1.0-4.8); Lymphocytes % (A) 18 %; MCH 28.1 pg (25.0-35.0); MCHC 32.1 g/dL (31.0-37.0); MCV 87.8 fL (80.0-100.0); Mean Platelet Volume 7.7; Monocytes # (A) 1.3 k/uL (0-1.0); Monocytes % (A) 5 %; Neutrophils # (A) 17.4 k/uL (1.3-7.7); Neutrophils % (A) 72 %; Platelet Count 393 k/uL (150-450); RBC 5.24 m/uL (4.30-5.90); RDW 16.2 % (11.5-15.5); WBC 24.3 k/uL (3.8-10.6)
--- NOTE | 2018-11-24 12:37 | XR ---
EXAMINATION TYPE: XR chest 2V DATE OF EXAM: 11/24/2018 COMPARISON: 09/17/2018 INDICATION: Chest pain TECHNIQUE: Frontal and lateral views of the chest are obtained. FINDINGS: The heart size is enlarged. The pulmonary vasculature is normal. The lungs are clear. Pacemaker overlies left chest. IMPRESSION: 1. Mild cardiomegaly
[2018-11-24 12:39] LABS: Albumin 3.9 g/dL (3.5-5.0); Calcium 9.9 mg/dL (8.4-10.2); Magnesium 1.8 mg/dL (1.6-2.3); Potassium 4.6 mmol/L (3.5-5.1); Total Bilirubin 0.9 mg/dL (0.2-1.3); Total Protein 7.3 g/dL (6.3-8.2)
[2018-11-24 12:49] LABS: INR 0.9 (<1.2); Prothrombin Time 9.4 sec (9.0-12.0)
[2018-11-24 12:51] LABS: Partial Thromboplastin Time 21.3 sec (22.0-30.0)
[2018-11-24 13:03] LABS: Creatine Kinase MB 0.8 ng/mL (0.0-2.4)
[2018-11-24 13:14] LABS: Troponin I 0.097 ng/mL (0.000-0.034)
[2018-11-24] MEDS ORDERED: SODIUM CHLORIDE 0.9% 1,000 ML IV ONE (13:56)
[2018-11-24] MEDS ORDERED: ONDANSETRON 4 MG/2 ML VIAL IVP PRN (13:57)
--- NOTE | 2018-11-24 15:25 | P.HPIM ---
History of Present Illness H&P Date: 11/24/18 Chief Complaint: Vomiting and diarrhea This is a 78-year-old male with a known past medical history of ischemic cardiomyopathy status post AICD, coronary disease, CVA, diabetes mellitus, hyperlipidemia, hypertension, rheumatoid arthritis, chronic kidney disease stage III, Lyme disease and was now virus per chart. Patient reports that yesterday evening he started not feeling well. And then around 8:00 this morning he started having multiple episodes of vomiting and diarrhea. He also started have some chest discomfort after the vomiting. He came into the emergency room for further evaluation and treatment he is found to have a white count of 24.3 and elevated troponin of 0.097. Creatinine was elevated at 1.49 but patient does have underlying chronic kidney disease. Patient was given IV fluids and Zofran in the ER with some improvement. Infectious disease has been placed on consult. Blood culture urinalysis and influenza screen has been ordered. Chest x-ray showing mild cardiomegaly. Patient's white count is continuously elevated on his other blood work noted in his chart. Therefore hematology has also been placed on consult. Cardiology consulted for the elevated troponin and chest discomfort. EKG showing an atrial ventricular paced rhythm. Patient denies any fever chills or sweats. Denies any abdominal pain. Denies any urinary symptoms. Denies shortness of breath. Patient and and been eating the same foods. They deny eating any restaurant food or any food this been sitting out too long. They have not done any recent traveling. 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 History of Any Multi-Drug Resistant Organisms: None Reported Past Surgical History: AICD, Back Surgery, Heart Catheterization, Pacemaker, Tonsillectomy Additional Past Surgical History / Comment(s): Biventricular AICD placement, back surgery 5, cardiac catheterization, tonsillectomy; colonoscopy Past Anesthesia/Blood Transfusion Reactions: No Reported Reaction Additional Past Anesthesia/Blood Transfusion Reaction / Comment(s): blood transfusion-no reaction Type of Cardiac Device: Permanent Pacemaker, AICD Device Placement Date:: 2016 Past Psychological History: No Psychological Hx Reported Smoking Status: Former smoker Past Alcohol Use History: Occasional Past Drug Use History: None Reported - Past Family History Mother Family Medical History: No Reported History Father History Unknown: Yes Family Medical History: No Reported History Additional Family Medical History / Comment(s): Father was healthy and lived to be 88yrs old. Medications and Allergies Home Medications Medication Instructions Recorded Confirmed Type Allopurinol 300 mg PO DAILY 05/31/16 08/06/18 History Insulin Detemir [Levemir Flextouch] 30 units SQ HS 05/31/16 08/06/18 History Pantoprazole Sodium 40 mg PO DAILY 05/31/16 08/06/18 History Pravastatin Sodium 40 mg PO HS 05/31/16 08/06/18 History Carvedilol [Coreg] 6.25 mg PO BID 01/09/17 08/06/18 History Ascorbic Acid [Vitamin C] 500 mg PO DAILY 09/23/17 08/06/18 History Cholecalciferol [Vitamin D3] 1,000 unit PO DAILY 09/23/17 08/06/18 History Insulin Aspart [NovoLOG Flexpen] See Protocol SQ AC-TID 09/23/17 08/06/18 History predniSONE 5 mg PO DAILY 04/30/18 08/06/18 History Aspirin EC [Ecotrin Low Dose] 81 mg PO DAILY #0 05/09/18 08/06/18 Rx Isosorbide Mononitrate ER [Imdur] 60 mg PO DAILY #30 tab.er.24h 05/31/18 Rx hydrALAZINE HCL [Apresoline] 25 mg PO BID 08/04/18 08/06/18 History Allergies Allergy/AdvReac Type Severity Reaction Status Date / Time amlodipine Allergy Swelling Verified 08/06/18 08:32 doxycycline Allergy Anaphylaxis Verified 08/06/18 08:32 Iodinated Contrast- Oral and Allergy Anaphylaxis Verified 08/06/18 08:32 IV Dye iodine Allergy Rash/Hives Verified 08/06/18 08:32 metronidazole [From Flagyl] Allergy Rash/Hives Verified 08/06/18 08:32 shrimp Allergy Rash/Hives Verified 08/06/18 08:32 acarbose AdvReac Abdominal Verified 08/06/18 08:32 Pain amoxicillin trihydrate AdvReac Nausea & Verified 08/06/18 08:32 [From Augmentin] Vomiting potassium clavulanate AdvReac Nausea & Verified 08/06/18 08:32 [From Augmentin] Vomiting Physical Exam Vitals: Vital Signs Temp Pulse Resp BP Pulse Ox 11/24/18 14:00 81 15 151/65 98 11/24/18 13:00 73 16 153/68 98 11/24/18 12:00 86 16 141/71 98 11/24/18 11:37 97.8 F 99 18 112/60 97 Intake and Output 11/24/18 11/24/18 11/24/18 06:59 14:59 22:59 Other: Weight 85.275 kg Head normocephalic Neck supple Lungs clear to auscultation bilaterally no wheezing or crackles Heart regular rate and rhythm S1-S2, no rub or gallop Abdomen is soft nontender nondistended positive bowel sounds no hepatosplenomegaly Extremities no edema Neuro alert and orientated to 3 Results CBC & Chem 7: 11/24/18 12:17 11/24/18 12:17 Labs: Abnormal Lab Results - Last 24 Hours (Table) 11/24/18 11/24/18 11/24/18 Range/Units 12:17 12:17 12:17 WBC 24.3 H (3.8-10.6) k/uL RDW 16.2 H (11.5-15.5) % Neutrophils # 17.4 H (1.3-7.7) k/uL Monocytes # 1.3 H (0-1.0) k/uL Eosinophils # 0.8 H (0-0.7) k/uL APTT (22.0-30.0) sec BUN 25 H (9-20) mg/dL Creatinine 1.49 H (0.66-1.25) mg/dL Glucose 217 H (74-99) mg/dL ALT 18 L (21-72) U/L Total Creatine Kinase 30 L (55-170) U/L Troponin I 0.097 H* (0.000-0.034) ng/mL 11/24/18 Range/Units 12:17 WBC (3.8-10.6) k/uL RDW (11.5-15.5) % Neutrophils # (1.3-7.7) k/uL Monocytes # (0-1.0) k/uL Eosinophils # (0-0.7) k/uL APTT 21.3 L (22.0-30.0) sec BUN (9-20) mg/dL Creatinine (0.66-1.25) mg/dL Glucose (74-99) mg/dL ALT (21-72) U/L Total Creatine Kinase (55-170) U/L Troponin I (0.000-0.034) ng/mL Assessment and Plan Assessment: 1. Nausea vomiting and diarrhea with elevated white count. Concerns for possible gastroenteritis. Continue with IV fluid hydration. Continue Zofran as needed. Consult infectious disease. Also check blood culture, urinalysis, influenza. Chest x-ray negative. Check abdominal ultrasound 2. Leukocytosis: White count 24.3 on admission. Concerns that patient's white count has been continuously elevated on previous blood draws. Consult hematology. Patient is on prednisone for rheumatoid arthritis 3. Elevated troponin with chest pain. Consult cardiology. Continue to monitor cardiac enzymes 4. Diabetes mellitus type 2 insulin-dependent. Add sliding scale coverage. Resume home insulin 5. History of ischemic cardiomyopathy status post AICD 6. History of CVA 7. Essential hypertension 8. Rheumatoid arthritis on chronic prednisone 9. Hyperlipidemia 10. Acute on Chronic kidney disease stage III. Continue with IV fluid hydration. Repeat labs in a.m. GI prophylaxis Protonix and DVT prophylaxis subcu heparin Time with Patient: Greater than 30 (Greater than 50% of the total time spent in counseling and coordination of care.I performed an examination of the patient and discussed their management with the physician Chucking Lathe Operator. I have reviewed the Physician Chucking Lathe Operator's notes and agree with the documented findings and plan of care)
[2018-11-24 15:42] LABS: Amylase 81 U/L (30-110); Lipase 133 U/L (23-300)
--- NOTE | 2018-11-24 17:03 | P.CONS ---
History of Present Illness - Reason for Consult Consult date: 11/24/18 Leukocytosis Requesting physician: Jean-Paul March - Chief Complaint not feeling well, nausea chest pain - History of Present Illness Mr Diaz is a pleasant WM with a h/o RA, who was noted to have elevated WBC at 18.1 with an absolute lymphocyte count of 6000. Labs in 05/10 showed a WBC of 22 , with ALC of 7.4 and 5/100 smudge cells. The most numerous cells were still neutrophils, and their increase was felt to be due to ongoing steroid use at those times. However, the elevation of the ALC was felt to be suspicious, and the pt referred here for further evaluation, after the case was d/w Rheumatology. Addtional labs were ordered, confirming a monoclonal B cell population, c/w CLL/SLL. However, off the steroids, ALC dropped to < 5000, indicating a monoclonal lymphocytosis rather than overt CLL. He was thus placed on observation. His RA has been well controlled on Orencia. He was last seen in office by Dr. Griffin in May 2017, in which at this time appeared to have stable disease without need for intervention. 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 History of Any Multi-Drug Resistant Organisms: None Reported Past Surgical History: AICD, Back Surgery, Heart Catheterization, Pacemaker, Tonsillectomy Additional Past Surgical History / Comment(s): Biventricular AICD placement, back surgery 5, cardiac catheterization, tonsillectomy; colonoscopy Past Anesthesia/Blood Transfusion Reactions: No Reported Reaction Additional Past Anesthesia/Blood Transfusion Reaction / Comm: blood transfusion- no reaction Type of Cardiac Device: Permanent Pacemaker, AICD Device Placement Date:: 2016 Past Psychological History: No Psychological Hx Reported Smoking Status: Former smoker Past Alcohol Use History: Occasional Past Drug Use History: None Reported - Past Family History Mother Family Medical History: No Reported History Father History Unknown: Yes Family Medical History: No Reported History Additional Family Medical History / Comment(s): Father was healthy and lived to be 88yrs old. Medications and Allergies Home Medications Medication Instructions Recorded Confirmed Type Allopurinol 300 mg PO DAILY 05/31/16 11/24/18 History Ascorbic Acid [Vitamin C] 500 mg PO DAILY 09/23/17 11/24/18 History Cholecalciferol [Vitamin D3] 1,000 unit PO DAILY 09/23/17 11/24/18 History predniSONE 5 mg PO DAILY 04/30/18 11/24/18 History Aspirin EC [Ecotrin Low Dose] 81 mg PO DAILY #0 05/09/18 11/24/18 Rx Carvedilol [Coreg] 6.25 mg PO DAILY 11/24/18 11/24/18 History Insulin Aspart [NovoLOG Flexpen] 10 unit SQ AC-TID 11/24/18 11/24/18 History Insulin Aspart [NovoLOG Flexpen] See Protocol SQ AC-TID 11/24/18 11/24/18 History Insulin Detemir [Levemir Flextouch] 25 unit SQ HS 11/24/18 11/24/18 History Insulin Detemir [Levemir Flextouch] See Protocol SQ DIRECTED 11/24/18 History Omeprazole [PriLOSEC] 20 mg PO DAILY 11/24/18 11/24/18 History Torsemide [Demadex] 10 mg PO DAILY 11/24/18 11/24/18 History Allergies Allergy/AdvReac Type Severity Reaction Status Date / Time amlodipine Allergy Swelling Verified 11/24/18 15:52 doxycycline Allergy Anaphylaxis Verified 11/24/18 15:52 Iodinated Contrast- Oral and Allergy Anaphylaxis Verified 11/24/18 15:52 IV Dye iodine Allergy Rash/Hives Verified 11/24/18 15:52 metronidazole [From Flagyl] Allergy Rash/Hives Verified 11/24/18 15:52 shrimp Allergy Rash/Hives Verified 11/24/18 15:52 acarbose AdvReac Abdominal Verified 11/24/18 15:52 Pain amoxicillin trihydrate AdvReac Nausea & Verified 11/24/18 15:52 [From Augmentin] Vomiting potassium clavulanate AdvReac Nausea & Verified 11/24/18 15:52 [From Augmentin] Vomiting Physical Exam Vitals: Vital Signs Temp Pulse Resp BP Pulse Ox 11/24/18 15:00 65 18 151/65 100 11/24/18 14:00 81 15 151/65 98 11/24/18 13:00 73 16 153/68 98 11/24/18 12:00 86 16 141/71 98 11/24/18 11:37 97.8 F 99 18 112/60 97 Intake and Output 11/24/18 11/24/18 11/24/18 06:59 14:59 22:59 Other: Weight 85.275 kg - Constitutional General appearance: cooperative, no acute distress - EENT Eyes: anicteric sclerae, EOMI, dentition normal ENT: hard of hearing, NA/AT, normal oropharynx - Neck no lymphadenopathy Neck: normal ROM - Respiratory Respiratory: bilateral: CTA, diminished (bases, no increased effort) - Cardiovascular Rhythm: regular Heart sounds: normal: S1, S2 - Gastrointestinal General gastrointestinal: normal bowel sounds, soft, tenderness - Integumentary Integumentary: pale - Neurologic Neurologic: CNII-XII intact - Musculoskeletal Musculoskeletal: generalized weakness, strength equal bilaterally - Psychiatric Psychiatric: A&O x's 3, appropriate affect Results CBC & Chem 7: 11/24/18 12:17 11/24/18 12:17 Labs: Abnormal Lab Results - Last 24 Hours (Table) 11/24/18 11/24/18 11/24/18 Range/Units 12:17 12:17 12:17 WBC 24.3 H (3.8-10.6) k/uL RDW 16.2 H (11.5-15.5) % Neutrophils # 17.4 H (1.3-7.7) k/uL Monocytes # 1.3 H (0-1.0) k/uL Eosinophils # 0.8 H (0-0.7) k/uL APTT (22.0-30.0) sec BUN 25 H (9-20) mg/dL Creatinine 1.49 H (0.66-1.25) mg/dL Glucose 217 H (74-99) mg/dL ALT 18 L (21-72) U/L Total Creatine Kinase 30 L (55-170) U/L Troponin I 0.097 H* (0.000-0.034) ng/mL 11/24/18 Range/Units 12:17 WBC (3.8-10.6) k/uL RDW (11.5-15.5) % Neutrophils # (1.3-7.7) k/uL Monocytes # (0-1.0) k/uL Eosinophils # (0-0.7) k/uL APTT 21.3 L (22.0-30.0) sec BUN (9-20) mg/dL Creatinine (0.66-1.25) mg/dL Glucose (74-99) mg/dL ALT (21-72) U/L Total Creatine Kinase (55-170) U/L Troponin I (0.000-0.034) ng/mL Chest x-ray: report reviewed Assessment and Plan Plan: Assessment and Recommendations: 78 year old patient with known history of CLL/CLL, hematology consulted for leukocytosis 1. Leukocytosis: - Secondary to his CLL, his baseline is between 18-25WBC. - Other contributing factors per medicine regarding acute events or infections 2. CLL - Stable - May follow-up with Dr. Griffin in office after discharge.
[2018-11-24 18:36] LABS: Hemoglobin A1C 7.4 % (4.0-6.0)
[2018-11-24 18:39] VITALS: BMI 25.4
[2018-11-24 18:45] LABS: Glucose,Whole Blood 149 mg/dL (75-99)
[2018-11-24] MEDS: INSULIN ASPART 100 UNIT/ML 1 ML 10 ML VIAL SQ SCH ×2 (18:56→21:33)
[2018-11-24] MEDS: HEPARIN SODIUM,PORCINE 5,000 UNIT/ML 1 ML VIAL SQ SCH (21:33)
[2018-11-24 21:46] LABS: Glucose,Whole Blood 152 mg/dL (75-99)
[2018-11-24] MEDS: MELATONIN 5 MG TABLET PO SCH (22:42)
[2018-11-25 01:24] LABS: Appearance,Urine Clear (Clear); Bilirubin,Urine Negative (Negative); Blood,Urine Negative (Negative); Color,Urine Yellow; Glucose,Urine (UA) Negative (Negative); Ketones,Urine Negative (Negative); Leukocyte Esterase,Urine Negative (Negative); Nitrite,Urine Negative (Negative); PH, Urine 5.5 (5.0-8.0); Protein,Urine Negative (Negative); Specific Gravity,Urine 1.016 (1.001-1.035); Urobilinogen,Urine <2.0 mg/dL (<2.0)
[2018-11-25 06:30] LABS: Glucose,Whole Blood 121 mg/dL (75-99)
[2018-11-25] MEDS: INSULIN ASPART 100 UNIT/ML 1 ML 10 ML VIAL SQ SCH ×4 (06:32→21:29)
[2018-11-25] MEDS: PANTOPRAZOLE 40 MG TABLET PO SCH (06:52)
[2018-11-25 06:56] LABS: Anisocytosis Slight; Basophils # (A) 0.1 k/uL (0-0.2); Basophils % (A) 0 %; Eosinophils # (A) 0.7 k/uL (0-0.7); Eosinophils % (A) 6 %; HCT 39.5 % (39.0-53.0); HGB 12.4 gm/dL (13.0-17.5); Lymphocytes # (A) 3.4 k/uL (1.0-4.8); Lymphocytes % (A) 30 %; MCH 27.6 pg (25.0-35.0); MCHC 31.3 g/dL (31.0-37.0); MCV 88.4 fL (80.0-100.0); Mean Platelet Volume 8.1; Monocytes # (A) 0.6 k/uL (0-1.0); Monocytes % (A) 5 %; Neutrophils # (A) 6.5 k/uL (1.3-7.7); Neutrophils % (A) 57 %; Platelet Count 244 k/uL (150-450); RBC 4.47 m/uL (4.30-5.90); RDW 16.2 % (11.5-15.5); WBC 11.5 k/uL (3.8-10.6)
[2018-11-25 07:18] LABS: Albumin 2.9 g/dL (3.5-5.0); Calcium 8.3 mg/dL (8.4-10.2); Total Bilirubin 1.2 mg/dL (0.2-1.3)
[2018-11-25] MEDS ORDERED: ASCORBIC ACID 500 MG PO SCH (09:00)
--- NOTE | 2018-11-25 09:03 | US ---
EXAMINATION TYPE: US abdomen complete DATE OF EXAM: 11/25/2018 COMPARISON: NONE CLINICAL HISTORY: 78-year-old male vomiting, nausea. Vomiting TECHNIQUE: Multiple sonographic images of the abdomen are obtained. FINDINGS: EXAM MEASUREMENTS: Liver Length: 15.2 cm Gallbladder Wall: 2.7 mm CBD: 4.8 mm Spleen: 12.0 cm Right Kidney: 10.1 x 4.5 x 4.0 cm Left Kidney: 10.8 x 4.6 x 4.5 cm Pancreas: Obscured by bowel gas Liver: Somewhat echogenic in appearance may be technical or could represent a degree of fatty infiltr ation. Gallbladder: No abnormal gallbladder distention, wall thickening or pericholecystic fluid. The provi ded images suggest some small dependent calculi measuring up to 6 mm not identified by the sonographe r. Evidence for sonographic Ferrair's sign: No CBD: wnl Spleen: wnl Right Kidney: No hydronephrosis. Left Kidney: No hydronephrosis. There is a 1.3 cm lower pole cyst. Upper IVC: wnl Abd Aorta: wnl IMPRESSION: Suggestion of a few 6 mm and smaller gallstones as seen on the provided images but not identified or mentioned by the disk recoater. No sonographic evidence for acute cholecystitis. No biliary ductal dila tation.
[2018-11-25] MEDS: HEPARIN SODIUM,PORCINE 5,000 UNIT/ML 1 ML VIAL SQ SCH ×2 (11:44→21:29)
[2018-11-25] MEDS: ASPIRIN 81 MG PO SCH (11:45)
[2018-11-25] MEDS: ALLOPURINOL 300 MG TAB PO SCH (11:45)
[2018-11-25] MEDS: predniSONE 5 MG TAB PO SCH (11:46)
[2018-11-25] MEDS: CARVEDILOL 6.25 MG TAB PO SCH (11:46)
[2018-11-25] MEDS: CHOLECALCIFEROL 1,000 UNIT TAB PO SCH (11:46)
[2018-11-25] MEDS: TORSEMIDE 20 MG TAB PO SCH (11:47)
[2018-11-25 11:50] LABS: Glucose,Whole Blood 193 mg/dL (75-99)
[2018-11-25] MEDS ORDERED: SODIUM POLYSTYRENE SULFONATE 15 GM/60 ML BOTTLE PO ONE (13:22)
--- NOTE | 2018-11-25 13:35 | P.PN ---
Subjective Progress Note Date: 11/25/18 This is a 78-year-old male with a known past medical history of ischemic cardiomyopathy status post AICD, coronary disease, CVA, diabetes mellitus, hyperlipidemia, hypertension, rheumatoid arthritis, chronic kidney disease stage III, Lyme disease and was now virus per chart. Patient reports that yesterday evening he started not feeling well. And then around 8:00 this morning he started having multiple episodes of vomiting and diarrhea. He also started have some chest discomfort after the vomiting. He came into the emergency room for further evaluation and treatment he is found to have a white count of 24.3 and elevated troponin of 0.097. Creatinine was elevated at 1.49 but patient does have underlying chronic kidney disease. Patient was given IV fluids and Zofran in the ER with some improvement. Infectious disease has been placed on consult. Blood culture urinalysis and influenza screen has been ordered. Chest x-ray showing mild cardiomegaly. Patient's white count is continuously elevated on his other blood work noted in his chart. Therefore hematology has also been placed on consult. Cardiology consulted for the elevated troponin and chest discomfort. EKG showing an atrial ventricular paced rhythm. Patient denies any fever chills or sweats. Denies any abdominal pain. Denies any urinary symptoms. Denies shortness of breath. Patient and and been eating the same foods. They deny eating any restaurant food or any food this been sitting out too long. They have not done any recent traveling. On 11/25/2018 patient was seen and examined he is alert and oriented 3 in no apparent distress he states he has improved significantly he had diarrhea and vomiting prior to presentation all these symptoms has resolved, there is no fever or chills no headache or dizziness no chest pain no shortness of breath no cough no nausea or vomiting no abdominal pain no diarrhea and no urinary symptoms. Potassium is elevated today at 6 white blood count is down to 11 Objective - Vital Signs Vital signs: Vital Signs Temp 98.1 F 11/25/18 11:30 Pulse 72 11/25/18 11:30 Resp 16 11/25/18 11:30 BP 135/64 11/25/18 11:30 Pulse Ox 95 11/25/18 11:30 Intake & Output 11/24/18 11/25/18 11/25/18 18:59 06:59 18:59 Intake Total 930 360 Balance 930 360 Weight 85.27 kg Intake: IV 30 Invasive Line 1 30 Intake, IV Titration 900 Amount Sodium Chloride 0.9% 1, 900 000 ml @ 75 mls/hr IV . [id number] ONE Rx#:[id number] Oral 360 Other: Voiding Method Urinal Urinal # Voids 3 0 - Exam Head normocephalic and atraumatic Neck supple no JVD no goiter Lungs clear to auscultation bilaterally no wheezing or crackles Heart regular rate and rhythm S1-S2, no rub or gallop Abdomen is soft nontender nondistended positive bowel sounds no hepatosplenomegaly Extremities no edema Neuro alert and orientated to 3 - Labs CBC & Chem 7: 11/25/18 05:47 11/25/18 05:47 Labs: Abnormal Lab Results - Last 24 Hours (Table) 11/24/18 11/24/18 11/24/18 Range/Units 12:17 18:42 21:23 WBC (3.8-10.6) k/uL Hgb (13.0-17.5) gm/dL RDW (11.5-15.5) % Potassium (3.5-5.1) mmol/L Chloride (98-107) mmol/L BUN (9-20) mg/dL Glucose (74-99) mg/dL POC Glucose (mg/dL) 149 H 152 H (75-99) mg/dL Hemoglobin A1c 7.4 H (4.0-6.0) % Calcium (8.4-10.2) mg/dL ALT (21-72) U/L Troponin I (0.000-0.034) ng/mL Total Protein (6.3-8.2) g/dL Albumin (3.5-5.0) g/dL 11/24/18 11/25/18 11/25/18 Range/Units 21:48 00:40 05:47 WBC 11.5 H (3.8-10.6) k/uL Hgb 12.4 L (13.0-17.5) gm/dL RDW 16.2 H (11.5-15.5) % Potassium (3.5-5.1) mmol/L Chloride (98-107) mmol/L BUN (9-20) mg/dL Glucose (74-99) mg/dL POC Glucose (mg/dL) (75-99) mg/dL Hemoglobin A1c (4.0-6.0) % Calcium (8.4-10.2) mg/dL ALT (21-72) U/L Troponin I 0.075 H* 0.075 H* (0.000-0.034) ng/mL Total Protein (6.3-8.2) g/dL Albumin (3.5-5.0) g/dL 11/25/18 11/25/18 11/25/18 Range/Units 05:47 06:26 11:44 WBC (3.8-10.6) k/uL Hgb (13.0-17.5) gm/dL RDW (11.5-15.5) % Potassium 6.0 H (3.5-5.1) mmol/L Chloride 111 H (98-107) mmol/L BUN 25 H (9-20) mg/dL Glucose 120 H (74-99) mg/dL POC Glucose (mg/dL) 121 H 193 H (75-99) mg/dL Hemoglobin A1c (4.0-6.0) % Calcium 8.3 L (8.4-10.2) mg/dL ALT 16 L (21-72) U/L Troponin I (0.000-0.034) ng/mL Total Protein 6.0 L (6.3-8.2) g/dL Albumin 2.9 L (3.5-5.0) g/dL Assessment and Plan Plan: 1. Nausea vomiting and diarrhea with elevated white count. Concerns for possible gastroenteritis. Continue with IV fluid hydration. Continue Zofran as needed. Consult infectious disease. Also check blood culture, urinalysis, influenza. Chest x-ray negative. abdominal ultrasound, revealing evidence of multiple small stones in the gallbladder without any evidence of acute cholecystitis 2. Leukocytosis: White count 24.3 on admission. Concerns that patient's white count has been continuously elevated on previous blood draws. Consult hematology. Patient is on prednisone for rheumatoid arthritis. Patient has history of CLL, hematology input review 3. Elevated troponin with chest pain. Consult cardiology. Continue to monitor cardiac enzymes 4. Diabetes mellitus type 2 insulin-dependent. Add sliding scale coverage. Resume home insulin 5. History of ischemic cardiomyopathy status post AICD 6. History of CVA 7. Essential hypertension 8. Rheumatoid arthritis on chronic prednisone 9. Hyperlipidemia 10. Acute on Chronic kidney disease stage III. Continue with IV fluid hydration. Repeat labs in a.m. 11. Hyperkalemia potassium today is 6 will give Kayexalate 15 g today recheck labs in a.m. Patient is clinically improving possible discharge to home tomorrow Most likely diagnosis is gastroenteritis, viral versus food poisoning
--- NOTE | 2018-11-25 14:56 | P.CRDCN ---
History of Present Illness History of present illness: This is Dr. Bales dictating a consult on this patient The patient was interviewed and examined by me IMPRESSION / ASSESSMENT: Patient admitted with gastroenteritis Borderline troponins with a flat trend Biventricular paced rhythm Denies any chest discomfort PLAN: Continue cardiac medications and continue treatment for gastroenteritis When necessary follow-up HPI Patient lives with GI symptoms. Cardiac consulted for abnormal troponins Known biventricular ICD in situ ROS: No fever chills or rigors, no cough, phlegm or expectoration, no nausea, vomiting or diarrhea, no hematuria, dysuria, no musculoskeletal complaints, no strokes or seizures, no skin lesions. EXAMINATION: Afebrile, pulse rate in the 70s, blood pressure 135/64 mmHg Breath sounds are clear no rhonchi no crackles Abdomen soft Extended is warm Heart sounds are normal no murmurs or gallop REVIEW OF LABS, ECG & MEDICAL DATA Potassium 6.0 white count elevated creatinine 1.25 Borderline troponin of 0.08 0.08 and 0.097 Past Medical History Past Medical History: Coronary Artery Disease (CAD), CVA/TIA, Diabetes Mellitus , GI Bleed, Hyperlipidemia, Hypertension, Musculoskeletal Disorder, Renal Disease, Rheumatoid Arthritis (RA), Thyroid Disorder Additional Past Medical History / Comment(s): chronic renal failure, chronic hyperkalemia, gout, 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 History of Any Multi-Drug Resistant Organisms: None Reported Past Surgical History: AICD, Back Surgery, Heart Catheterization, Pacemaker, Tonsillectomy Additional Past Surgical History / Comment(s): Biventricular AICD placement, back surgery 5, cardiac catheterization, tonsillectomy; colonoscopy Past Anesthesia/Blood Transfusion Reactions: No Reported Reaction Additional Past Anesthesia/Blood Transfusion Reaction / Comment(s): blood transfusion-no reaction Type of Cardiac Device: Permanent Pacemaker, AICD Device Placement Date:: 2016 Past Psychological History: No Psychological Hx Reported Smoking Status: Former smoker Past Alcohol Use History: Occasional Past Drug Use History: None Reported - Past Family History Mother Family Medical History: No Reported History Father History Unknown: Yes Family Medical History: No Reported History Additional Family Medical History / Comment(s): Father was healthy and lived to be 88yrs old. Medications and Allergies Home Medications Medication Instructions Recorded Confirmed Type Allopurinol 300 mg PO DAILY 05/31/16 11/24/18 History Ascorbic Acid [Vitamin C] 500 mg PO DAILY 09/23/17 11/24/18 History Cholecalciferol [Vitamin D3] 1,000 unit PO DAILY 09/23/17 11/24/18 History predniSONE 5 mg PO DAILY 04/30/18 11/24/18 History Aspirin EC [Ecotrin Low Dose] 81 mg PO DAILY #0 05/09/18 11/24/18 Rx Carvedilol [Coreg] 6.25 mg PO DAILY 11/24/18 11/24/18 History Insulin Aspart [NovoLOG Flexpen] 10 unit SQ AC-TID 11/24/18 11/24/18 History Insulin Aspart [NovoLOG Flexpen] See Protocol SQ AC-TID 11/24/18 11/24/18 History Insulin Detemir [Levemir Flextouch] 25 unit SQ HS 11/24/18 11/24/18 History Insulin Detemir [Levemir Flextouch] See Protocol SQ DIRECTED 11/24/18 History Omeprazole [PriLOSEC] 20 mg PO DAILY 11/24/18 11/24/18 History Torsemide [Demadex] 10 mg PO DAILY 11/24/18 11/24/18 History Allergies Allergy/AdvReac Type Severity Reaction Status Date / Time amlodipine Allergy Swelling Verified 11/24/18 15:52 doxycycline Allergy Anaphylaxis Verified 11/24/18 15:52 Iodinated Contrast- Oral and Allergy Anaphylaxis Verified 11/24/18 15:52 IV Dye iodine Allergy Rash/Hives Verified 11/24/18 15:52 metronidazole [From Flagyl] Allergy Rash/Hives Verified 11/24/18 15:52 shrimp Allergy Rash/Hives Verified 11/24/18 15:52 acarbose AdvReac Abdominal Verified 11/24/18 15:52 Pain amoxicillin trihydrate AdvReac Nausea & Verified 11/24/18 15:52 [From Augmentin] Vomiting potassium clavulanate AdvReac Nausea & Verified 11/24/18 15:52 [From Augmentin] Vomiting Physical Exam Vitals: Vital Signs Temp Pulse Pulse Resp BP BP Pulse Ox 11/25/18 11:30 98.1 F 72 16 135/64 95 11/25/18 09:25 98.4 F 71 16 130/60 98 11/25/18 04:00 97.6 F 74 15 147/63 96 11/25/18 00:00 97.1 F L 71 16 144/66 95 11/24/18 20:00 98.4 F 69 17 158/78 94 L 11/24/18 18:10 102 H 18 11/24/18 17:55 97.8 F 11/24/18 17:45 97.8 F 11/24/18 17:00 92 18 127/52 95 11/24/18 16:00 92 18 138/58 100 11/24/18 15:00 65 18 151/65 100 Intake and Output 11/24/18 11/25/18 11/25/18 22:59 06:59 14:59 Intake Total 310 620 360 Balance 310 620 360 Intake: IV 10 20 Invasive Line 1 10 20 Intake, IV Titration 300 600 Amount Sodium Chloride 0.9% 1, 300 600 000 ml @ 75 mls/hr IV . [id number] ONE Rx#:[id number] Oral 360 Other: Voiding Method Urinal Urinal Urinal # Voids 1 3 0 Results 11/25/18 05:47 11/25/18 05:47 Cardiac Enzymes 11/24/18 11/25/18 11/25/18 Range/Units 21:48 00:40 05:47 AST 46 (17-59) U/L Troponin I 0.075 H* 0.075 H* (0.000-0.034) ng/mL CBC 11/25/18 Range/Units 05:47 WBC 11.5 H (3.8-10.6) k/uL RBC 4.47 (4.30-5.90) m/uL Hgb 12.4 L (13.0-17.5) gm/dL Hct 39.5 (39.0-53.0) % Plt Count 244 (150-450) k/uL Comprehensive Metabolic Panel 11/25/18 Range/Units 05:47 Sodium 139 (137-145) mmol/L Potassium 6.0 H (3.5-5.1) mmol/L Chloride 111 H (98-107) mmol/L Carbon Dioxide 22 (22-30) mmol/L BUN 25 H (9-20) mg/dL Creatinine 1.25 (0.66-1.25) mg/dL Glucose 120 H (74-99) mg/dL Calcium 8.3 L (8.4-10.2) mg/dL AST 46 (17-59) U/L ALT 16 L (21-72) U/L Alkaline Phosphatase 38 (38-126) U/L Total Protein 6.0 L (6.3-8.2) g/dL Albumin 2.9 L (3.5-5.0) g/dL Current Medications Generic Name Dose Route Start Last Admin Trade Name Freq PRN Reason Stop Dose Admin Allopurinol 300 mg 11/25/18 09:00 11/25/18 11:45 Zyloprim PO 300 mg DAILY [facility] Administration Aspirin 81 mg 11/25/18 09:00 11/25/18 11:45 Aspirin PO 81 mg DAILY [facility] Administration Carvedilol 6.25 mg 11/25/18 09:00 11/25/18 11:46 Coreg PO 6.25 mg DAILY [facility] Administration Cholecalciferol 1,000 unit 11/25/18 09:00 11/25/18 11:46 Vitamin D3 PO 1,000 unit DAILY [facility] Administration Heparin Sodium (Porcine) 5,000 unit 11/24/18 21:00 11/25/18 11:44 Heparin SQ Not Given Q12HR [facility] Insulin Aspart 0 unit 11/24/18 17:30 11/25/18 12:35 Novolog SQ 2 unit ACHS [facility] Administration Protocol Insulin Detemir 25 unit 11/25/18 21:00 Levemir SQ HS [facility] Melatonin 5 mg 11/24/18 22:45 11/24/18 22:42 Melatonin PO 5 mg HS [facility] Administration Ondansetron HCl 4 mg 11/24/18 13:57 Zofran IVP Q6HR PRN Nausea And Vomiting Pantoprazole Sodium 40 mg 11/25/18 07:30 11/25/18 06:52 Protonix PO 40 mg DAILY@0730 [facility] Administration Prednisone 5 mg 11/25/18 09:00 11/25/18 11:46 PO 5 mg DAILY [facility] Administration Torsemide 10 mg 11/25/18 09:00 11/25/18 11:47 Demadex PO 10 mg DAILY [facility] Administration Intake and Output 11/24/18 11/25/18 11/25/18 22:59 06:59 14:59 Intake Total 310 620 360 Balance 310 620 360 Intake: IV 10 20 Invasive Line 1 10 20 Intake, IV Titration 300 600 Amount Sodium Chloride 0.9% 1, 300 600 000 ml @ 75 mls/hr IV . [id number] ONE Rx#:[id number] Oral 360 Other: Voiding Method Urinal Urinal Urinal # Voids 1 3 0 11/25/18 05:47 11/25/18 05:47
[2018-11-25 17:08] LABS: Glucose,Whole Blood 179 mg/dL (75-99)
--- NOTE | 2018-11-25 17:37 | P.CONS ---
History of Present Illness - Reason for Consult Consult date: 11/25/18 - Chief Complaint nausea and emesis - History of Present Illness Pleasant 78-year-old male who has underlying coronary artery disease that is associated with ischemic cardiomyopathy that has required AICD placement as well as diabetes presents to Hospital feeling very poorly. It is sudden onset of abdominal discomfort associated with nausea and emesis. He had multiple bouts and was not able to ingest any fluid or food. Because he felt so poorly. He presented to the emergency center where without evidence of dehydration with acute leukocytosis and a mildly elevated troponin. He subsequently has been admitted it is now fortunately feeling considerably better. The patient does have a significant history of rheumatoid arthritis and is treated with a biological agent Orencia. 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 With hydration the patient is feeling considerably better. No further nausea or emesis. Having no abdominal pain. It is status post holidays and he has been eating leftovers since including [employer]. Noted also in the home as been ill. Review of Systems 78-year-old male feeling better HEENT:Denies headache or acute visual change. Denies sinus or mouth discomforts. Denies neck stiffness or pain. Denies significant oral cavity pain. Denies difficulty on swallowing. Lungs: Denies significant shortness of breath, cough, sputum production, or hemoptysis. Cardiovascular: Denies significant shortness of breath, chest pain, chest wall pain, orthopnea, dyspnea on exertion, syncope Gastrointestinal:[place] per the HPI had severe nausea with emesis no significant or severe abdominal pain. He did not have significant diarrhea. He had no hematemesis melena or hematochezia. Musculoskeletal: denies significant myalgias or arthralgias. No new joint swelling. Denies new back pain. Skin: Denies new rash or lesions. No new ulcers or wounds are related.. Neuro: Denies headache or visual change. Denies any new onset weakness or difficulty with ambulation. Denies falls or seizures. Psychiatric:Denies anxiety or depression. Endocrine: With the illness had significant fatigue which is improving and has not recorded any significant weight loss. 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 History of Any Multi-Drug Resistant Organisms: None Reported Past Surgical History: AICD, Back Surgery, Heart Catheterization, Pacemaker, Tonsillectomy Additional Past Surgical History / Comment(s): Biventricular AICD placement, back surgery 5, cardiac catheterization, tonsillectomy; colonoscopy Past Anesthesia/Blood Transfusion Reactions: No Reported Reaction Additional Past Anesthesia/Blood Transfusion Reaction / Comm: blood transfusion- no reaction Type of Cardiac Device: Permanent Pacemaker, AICD Device Placement Date:: 2016 Past Psychological History: No Psychological Hx Reported Additional Psychological History / Comment(s): and lives with his . Retired. service in the [employer] stationed in the [employer] with no illnesses. No international travel since. Past dogs in the home. No current tobacco or alcohol use Smoking Status: Former smoker Past Alcohol Use History: Occasional Past Drug Use History: None Reported - Past Family History Mother Family Medical History: No Reported History Father History Unknown: Yes Family Medical History: No Reported History Additional Family Medical History / Comment(s): Father was healthy and lived to be 88yrs old. Medications and Allergies Home Medications and Allergies Comment(s): Current Medications Allopurinol (Zyloprim) 300 mg PO DAILY [facility] Last Admin: 11/25/18 11:45 Dose: 300 mg Aspirin (Aspirin) 81 mg PO DAILY [facility] Last Admin: 11/25/18 11:45 Dose: 81 mg Carvedilol (Coreg) 6.25 mg PO DAILY [facility] Last Admin: 11/25/18 11:46 Dose: 6.25 mg Cholecalciferol (Vitamin D3) 1,000 unit PO DAILY [facility] Last Admin: 11/25/18 11:46 Dose: 1,000 unit Heparin Sodium (Porcine) (Heparin) 5,000 unit SQ Q12HR [facility] Last Admin: 11/25/18 11:44 Dose: Not Given Insulin Aspart (Novolog) 0 unit SQ ACHS [facility]; Protocol Last Admin: 11/25/18 12:35 Dose: 2 unit Insulin Detemir (Levemir) 25 unit SQ [facility] Melatonin (Melatonin) 5 mg PO [facility] Last Admin: 11/24/18 22:42 Dose: 5 mg Ondansetron HCl (Zofran) 4 mg IVP Q6HR PRN PRN Reason: Nausea And Vomiting Pantoprazole Sodium (Protonix) 40 mg PO DAILY@0730 [facility] Last Admin: 11/25/18 06:52 Dose: 40 mg Prednisone () 5 mg PO DAILY [facility] Last Admin: 11/25/18 11:46 Dose: 5 mg Torsemide (Demadex) 10 mg PO DAILY [facility] Last Admin: 11/25/18 11:47 Dose: 10 mg Home Medications Medication Instructions Recorded Confirmed Type Allopurinol 300 mg PO DAILY 05/31/16 11/24/18 History Ascorbic Acid [Vitamin C] 500 mg PO DAILY 09/23/17 11/24/18 History Cholecalciferol [Vitamin D3] 1,000 unit PO DAILY 09/23/17 11/24/18 History predniSONE 5 mg PO DAILY 04/30/18 11/24/18 History Aspirin EC [Ecotrin Low Dose] 81 mg PO DAILY #0 05/09/18 11/24/18 Rx Carvedilol [Coreg] 6.25 mg PO DAILY 11/24/18 11/24/18 History Insulin Aspart [NovoLOG Flexpen] 10 unit SQ AC-TID 11/24/18 11/24/18 History Insulin Aspart [NovoLOG Flexpen] See Protocol SQ AC-TID 11/24/18 11/24/18 History Insulin Detemir [Levemir Flextouch] 25 unit SQ 11/24/18 11/24/18 History Insulin Detemir [Levemir Flextouch] See Protocol SQ DIRECTED 11/24/18 History Omeprazole [PriLOSEC] 20 mg PO DAILY 11/24/18 11/24/18 History Torsemide [Demadex] 10 mg PO DAILY 11/24/18 11/24/18 History Allergies Allergy/AdvReac Type Severity Reaction Status Date / Time amlodipine Allergy Swelling Verified 11/24/18 15:52 doxycycline Allergy Anaphylaxis Verified 11/24/18 15:52 Iodinated Contrast- Oral and Allergy Anaphylaxis Verified 11/24/18 15:52 IV Dye iodine Allergy Rash/Hives Verified 11/24/18 15:52 metronidazole [From Flagyl] Allergy Rash/Hives Verified 11/24/18 15:52 shrimp Allergy Rash/Hives Verified 11/24/18 15:52 acarbose AdvReac Abdominal Verified 11/24/18 15:52 Pain amoxicillin trihydrate AdvReac Nausea & Verified 11/24/18 15:52 [From Augmentin] Vomiting potassium clavulanate AdvReac Nausea & Verified 11/24/18 15:52 [From Augmentin] Vomiting Physical Exam Vitals: Vital Signs Temp Pulse Resp BP Pulse Ox 11/25/18 11:30 98.1 F 72 16 135/64 95 11/25/18 09:25 98.4 F 71 16 130/60 98 11/25/18 04:00 97.6 F 74 15 147/63 96 11/25/18 00:00 97.1 F L 71 16 144/66 95 11/24/18 20:00 98.4 F 69 17 158/78 94 L 11/24/18 18:10 102 H 18 11/24/18 17:55 97.8 F 11/24/18 17:45 97.8 F Intake and Output 11/25/18 11/25/18 11/25/18 06:59 14:59 22:59 Intake Total 620 360 Balance 620 360 Intake: IV 20 Invasive Line 1 20 Intake, IV Titration 600 Amount Sodium Chloride 0.9% 1, 600 000 ml @ 75 mls/hr IV . [id number] ONE Rx#:[id number] Oral 360 Other: Voiding Method Urinal Urinal # Voids 3 0 pleasant 78-year-old male feeling better HEENT: Anicteric conjunctiva are pink and moist nasal mucosa grossly intact without significant lesions, there is no thrush.mucosa minimally dry Neck: The neck is supple without significant lymphadenopathy or thyromegaly. Lungs: Good bilateral air entry without significant crackles or wheezing. There is no significant bronchial sounds. There is no egophony or dullness. Heart: Regular rate and rhythm with an audible S1-S2, no S3 no S4. There is no significant murmur click or rub, PMI was nondisplaced. Abdomen: Positive bowel sounds soft and nontender without palpable masses or organomegaly. There was no guarding or rebound. Extremities: The upper extremities have excellent pulses they are symmetric, no significant petechiae or telangiectasia. No splinter hemorrhages were noted. The lower extremities are free from significant edema. The peripheral pulses were 2+ and symmetric. Neuro: Awake alert oriented to person place and time. There are no acute new gross focal sensory motor deficits. Results CBC & Chem 7: 11/25/18 05:47 11/25/18 05:47 Labs: Abnormal Lab Results - Last 24 Hours (Table) 11/24/18 11/24/18 11/24/18 Range/Units 12:17 18:42 21:23 WBC (3.8-10.6) k/uL Hgb (13.0-17.5) gm/dL RDW (11.5-15.5) % Potassium (3.5-5.1) mmol/L Chloride (98-107) mmol/L BUN (9-20) mg/dL Glucose (74-99) mg/dL POC Glucose (mg/dL) 149 H 152 H (75-99) mg/dL Hemoglobin A1c 7.4 H (4.0-6.0) % Calcium (8.4-10.2) mg/dL ALT (21-72) U/L Troponin I (0.000-0.034) ng/mL Total Protein (6.3-8.2) g/dL Albumin (3.5-5.0) g/dL 11/24/18 11/25/18 11/25/18 Range/Units 21:48 00:40 05:47 WBC 11.5 H (3.8-10.6) k/uL Hgb 12.4 L (13.0-17.5) gm/dL RDW 16.2 H (11.5-15.5) % Potassium (3.5-5.1) mmol/L Chloride (98-107) mmol/L BUN (9-20) mg/dL Glucose (74-99) mg/dL POC Glucose (mg/dL) (75-99) mg/dL Hemoglobin A1c (4.0-6.0) % Calcium (8.4-10.2) mg/dL ALT (21-72) U/L Troponin I 0.075 H* 0.075 H* (0.000-0.034) ng/mL Total Protein (6.3-8.2) g/dL Albumin (3.5-5.0) g/dL 11/25/18 11/25/18 11/25/18 Range/Units 05:47 06:26 11:44 WBC (3.8-10.6) k/uL Hgb (13.0-17.5) gm/dL RDW (11.5-15.5) % Potassium 6.0 H (3.5-5.1) mmol/L Chloride 111 H (98-107) mmol/L BUN 25 H (9-20) mg/dL Glucose 120 H (74-99) mg/dL POC Glucose (mg/dL) 121 H 193 H (75-99) mg/dL Hemoglobin A1c (4.0-6.0) % Calcium 8.3 L (8.4-10.2) mg/dL ALT 16 L (21-72) U/L Troponin I (0.000-0.034) ng/mL Total Protein 6.0 L (6.3-8.2) g/dL Albumin 2.9 L (3.5-5.0) g/dL 11/25/18 Range/Units 17:03 WBC (3.8-10.6) k/uL Hgb (13.0-17.5) gm/dL RDW (11.5-15.5) % Potassium (3.5-5.1) mmol/L Chloride (98-107) mmol/L BUN (9-20) mg/dL Glucose (74-99) mg/dL POC Glucose (mg/dL) 179 H (75-99) mg/dL Hemoglobin A1c (4.0-6.0) % Calcium (8.4-10.2) mg/dL ALT (21-72) U/L Troponin I (0.000-0.034) ng/mL Total Protein (6.3-8.2) g/dL Albumin (3.5-5.0) g/dL Laboratory Results WBC 11.5 k/uL (3.8-10.6) H 11/25/18 05:47 RBC 4.47 m/uL (4.30-5.90) 11/25/18 05:47 Hgb 12.4 gm/dL (13.0-17.5) L 11/25/18 05:47 Hct 39.5 % (39.0-53.0) 11/25/18 05:47 MCV 88.4 fL (80.0-100.0) 11/25/18 05:47 MCH 27.6 pg (25.0-35.0) 11/25/18 05:47 MCHC 31.3 g/dL (31.0-37.0) 11/25/18 05:47 RDW 16.2 % (11.5-15.5) H 11/25/18 05:47 Plt Count 244 k/uL (150-450) 11/25/18 05:47 Neutrophils % 57 % 11/25/18 05:47 Lymphocytes % 30 % 11/25/18 05:47 Monocytes % 5 % 11/25/18 05:47 Eosinophils % 6 % 11/25/18 05:47 Basophils % 0 % 11/25/18 05:47 Neutrophils # 6.5 k/uL (1.3-7.7) 11/25/18 05:47 Lymphocytes # 3.4 k/uL (1.0-4.8) 11/25/18 05:47 Monocytes # 0.6 k/uL (0-1.0) 11/25/18 05:47 Eosinophils # 0.7 k/uL (0-0.7) 11/25/18 05:47 Basophils # 0.1 k/uL (0-0.2) 11/25/18 05:47 Anisocytosis Slight 11/25/18 05:47 PT 9.4 sec (9.0-12.0) 11/24/18 12:17 INR 0.9 (<1.2) 11/24/18 12:17 APTT 21.3 sec (22.0-30.0) L 11/24/18 12:17 Sodium 139 mmol/L (137-145) 11/25/18 05:47 Potassium 6.0 mmol/L (3.5-5.1) H 11/25/18 05:47 Chloride 111 mmol/L (98-107) H 11/25/18 05:47 Carbon Dioxide 22 mmol/L (22-30) 11/25/18 05:47 Anion Gap 6 mmol/L 11/25/18 05:47 BUN 25 mg/dL (9-20) H 11/25/18 05:47 Creatinine 1.25 mg/dL (0.66-1.25) 11/25/18 05:47 Est GFR (CKD-EPI)AfAm 63 (>60 ml/min/1.73 sqM) 11/25/18 05:47 Est GFR (CKD-EPI)NonAf 55 (>60 ml/min/1.73 sqM) 11/25/18 05:47 Glucose 120 mg/dL (74-99) H 11/25/18 05:47 POC Glucose (mg/dL) 179 mg/dL (75-99) H 11/25/18 17:03 POC Glu Heel Seat Sander ID Staci Montemayor 11/25/18 17:[address] Glu mg/dL 166 11/24/18 12:17 Hemoglobin A1c 7.4 % (4.0-6.0) H 11/24/18 12:17 Calcium 8.3 mg/dL (8.4-10.2) L 11/25/18 05:47 Magnesium 1.8 mg/dL (1.6-2.3) 11/24/18 12:17 Total Bilirubin 1.2 mg/dL (0.2-1.3) 11/25/18 05:47 AST 46 U/L (17-59) 11/25/18 05:47 ALT 16 U/L (21-72) L 11/25/18 05:47 Alkaline Phosphatase 38 U/L (38-126) 11/25/18 05:47 Total Creatine Kinase 30 U/L (55-170) L 11/24/18 12:17 CK-MB (CK-2) 0.8 ng/mL (0.0-2.4) 11/24/18 12:17 CK-MB (CK-2) Rel Index 2.7 11/24/18 12:17 Troponin I 0.075 ng/mL (0.000-0.034) H* 11/25/18 00:40 Total Protein 6.0 g/dL (6.3-8.2) L 11/25/18 05:47 Albumin 2.9 g/dL (3.5-5.0) L 11/25/18 05:47 Amylase 81 U/L (30-110) 11/24/18 12:17 Lipase 133 U/L (23-300) 11/24/18 12:17 Urine Color Yellow 11/25/18 01:10 Urine Appearance Clear (Clear) 11/25/18 01:10 Urine pH 5.5 (5.0-8.0) 11/25/18 01:10 Ur Specific [place] 1.016 (1.001-1.035) 11/25/18 01:10 Urine Protein Negative (Negative) 11/25/18 01:10 Urine Glucose (UA) Negative (Negative) 11/25/18 01:10 Urine Ketones Negative (Negative) 11/25/18 01:10 Urine Blood Negative (Negative) 11/25/18 01:10 Urine Nitrite Negative (Negative) 11/25/18 01:10 Urine Bilirubin Negative (Negative) 11/25/18 01:10 Urine Urobilinogen <2.0 mg/dL (<2.0) 11/25/18 01:10 Ur Leukocyte Esterase Negative (Negative) 11/25/18 01:10 Influenza Type A RNA Not Detected (Not Detectd) 11/24/18 15:26 Influenza Type B (PCR) Not Detected (Not Detectd) 11/24/18 15:26 Assessment and Plan (1) Gastroenteritis Narrative/Plan: 78-year-old male with a history of rheumatoid arthritis and ischemic cardiomyopathy with an AICD presents to Hospital feeling weak and ill with significant nausea and emesis. Leukocytosis was noted at admission. The patient has received antiemetics and rehydration and with this is feeling considerably better. Appetite is improving. He is having no abdominal pain. He is having no fevers chills rigors or sweats. It is likely the patient has food related gastroenteritis and that he has been eating leftover food from the holiday. Given that he is immunocompromised he is more likely to become ill then his . He responded well to fluids and antiemetic therapy. Leukocytosis is in response to his significant nausea and emesis and his chronic steroid therapy. The potassium was 6.0 morning specimen but it is noted to be a hemolyzed specimen and I believe is being redrawn. There was evidence of significant dehydration at admission with an elevated creatinine of 1.49 is now generally normalized to 1.25. no antimicrobial therapy is required at this point in time. Recheck electrolytes in the morning. Current Visit: Yes Status: Acute Code(s): K52.9 - NONINFECTIVE GASTROENTERITIS AND COLITIS, UNSPECIFIED SNOMED Code(s): 12969508 (2) Leukocytosis Current Visit: Yes Status: Acute Code(s): D72.829 - ELEVATED WHITE BLOOD CELL COUNT, UNSPECIFIED SNOMED Code(s): 532013024
[2018-11-25] MEDS ORDERED: INSULIN DETEMIR 100 UNIT/ML 10 ML VIAL SQ SCH (21:00)
[2018-11-25 21:26] LABS: Glucose,Whole Blood 221 mg/dL (75-99)
[2018-11-25] MEDS: MELATONIN 5 MG TABLET PO SCH (21:29)
[2018-11-26 06:22] LABS: Glucose,Whole Blood 91 mg/dL (75-99)
[2018-11-26] MEDS: INSULIN ASPART 100 UNIT/ML 1 ML 10 ML VIAL SQ SCH ×2 (06:26→12:28)
[2018-11-26] MEDS: PANTOPRAZOLE 40 MG TABLET PO SCH (06:44)
[2018-11-26 07:23] LABS: Anisocytosis Slight; Basophils % (A) 0 %; Eosinophils # (A) 0.5 k/uL (0-0.7); Eosinophils % (A) 4 %; HCT 36.6 % (39.0-53.0); HGB 11.6 gm/dL (13.0-17.5); Lymphocytes # (A) 3.4 k/uL (1.0-4.8); Lymphocytes % (A) 29 %; MCH 27.8 pg (25.0-35.0); MCHC 31.6 g/dL (31.0-37.0); MCV 87.8 fL (80.0-100.0); Mean Platelet Volume 6.9; Monocytes # (A) 0.6 k/uL (0-1.0); Monocytes % (A) 5 %; Neutrophils # (A) 6.9 k/uL (1.3-7.7); Neutrophils % (A) 58 %; Platelet Count 278 k/uL (150-450); RBC 4.17 m/uL (4.30-5.90); RDW 16.2 % (11.5-15.5); WBC 11.8 k/uL (3.8-10.6)
[2018-11-26 07:34] LABS: Albumin 2.9 g/dL (3.5-5.0); Calcium 8.6 mg/dL (8.4-10.2); Potassium 4.2 mmol/L (3.5-5.1); Total Bilirubin 0.4 mg/dL (0.2-1.3); Total Protein 5.6 g/dL (6.3-8.2)
[2018-11-26] MEDS: TORSEMIDE 20 MG TAB PO SCH (09:29)
[2018-11-26] MEDS: ASPIRIN 81 MG PO SCH (09:29)
[2018-11-26] MEDS: CHOLECALCIFEROL 1,000 UNIT TAB PO SCH (09:29)
[2018-11-26] MEDS: ALLOPURINOL 300 MG TAB PO SCH (09:29)
[2018-11-26] MEDS: predniSONE 5 MG TAB PO SCH (09:29)
[2018-11-26] MEDS: CARVEDILOL 6.25 MG TAB PO SCH (09:29)
[2018-11-26] MEDS: HEPARIN SODIUM,PORCINE 5,000 UNIT/ML 1 ML VIAL SQ SCH (09:32)
[2018-11-26] MEDS ORDERED: LACTULOSE 20 GM/30 ML CUP PO PRN (11:25)
[2018-11-26 11:29] LABS: Glucose,Whole Blood 145 mg/dL (75-99)
[2018-11-26] MEDS ORDERED: DOCUSATE 100 MG CAP PO SCH (11:30)
--- NOTE | 2018-11-26 13:11 | P.PN ---
Subjective Progress Note Date: 11/26/18 This is a 78-year-old male with a known past medical history of ischemic cardiomyopathy status post AICD, coronary disease, CVA, diabetes mellitus, hyperlipidemia, hypertension, rheumatoid arthritis, chronic kidney disease stage III, Lyme disease and was now virus per chart. Patient reports that yesterday evening he started not feeling well. And then around 8:00 this morning he started having multiple episodes of vomiting and diarrhea. He also started have some chest discomfort after the vomiting. He came into the emergency room for further evaluation and treatment he is found to have a white count of 24.3 and elevated troponin of 0.097. Creatinine was elevated at 1.49 but patient does have underlying chronic kidney disease. Patient was given IV fluids and Zofran in the ER with some improvement. Infectious disease has been placed on consult. Blood culture urinalysis and influenza screen has been ordered. Chest x-ray showing mild cardiomegaly. Patient's white count is continuously elevated on his other blood work noted in his chart. Therefore hematology has also been placed on consult. Cardiology consulted for the elevated troponin and chest discomfort. EKG showing an atrial ventricular paced rhythm. Patient denies any fever chills or sweats. Denies any abdominal pain. Denies any urinary symptoms. Denies shortness of breath. Patient and and been eating the same foods. They deny eating any restaurant food or any food this been sitting out too long. They have not done any recent traveling. On 11/25/2018 patient was seen and examined he is alert and oriented 3 in no apparent distress he states he has improved significantly he had diarrhea and vomiting prior to presentation all these symptoms has resolved, there is no fever or chills no headache or dizziness no chest pain no shortness of breath no cough no nausea or vomiting no abdominal pain no diarrhea and no urinary symptoms. Potassium is elevated today at 6 white blood count is down to 11 On patient is alert and oriented 3. At this time patient is complaining of constipation. Colace has been added. Patient denies chest pain or shortness breath. Patient denies nausea vomiting or diarrhea. Patient denies any urinary burning or frequency. Objective - Vital Signs Vital signs: Vital Signs Temp 98.1 F 11/26/18 04:00 Pulse 67 11/26/18 04:00 Resp 15 11/26/18 04:00 BP 155/66 11/26/18 04:00 Pulse Ox 94 L 11/26/18 04:00 Intake & Output 11/25/18 11/26/18 11/26/18 18:59 06:59 18:59 Intake Total 480 240 Balance 480 240 Weight 84 kg Intake: Oral 480 240 Other: Voiding Method Urinal Urinal # Voids 1 1 # Bowel Movements 1 - Exam Head normocephalic and atraumatic Neck supple no JVD no goiter Lungs clear to auscultation bilaterally no wheezing or crackles Heart regular rate and rhythm S1-S2, no rub or gallop Abdomen is soft nontender nondistended positive bowel sounds no hepatosplenomegaly Extremities no edema Neuro alert and orientated to 3 - Labs CBC & Chem 7: 11/26/18 06:44 11/26/18 06:44 Labs: Abnormal Lab Results - Last 24 Hours (Table) 11/25/18 11/25/18 11/26/18 Range/Units 17:03 21:21 06:44 WBC 11.8 H (3.8-10.6) k/uL RBC 4.17 L (4.30-5.90) m/uL Hgb 11.6 L (13.0-17.5) gm/dL Hct 36.6 L (39.0-53.0) % RDW 16.2 H (11.5-15.5) % Chloride (98-107) mmol/L BUN (9-20) mg/dL Creatinine (0.66-1.25) mg/dL POC Glucose (mg/dL) 179 H 221 H (75-99) mg/dL AST (17-59) U/L ALT (21-72) U/L Total Protein (6.3-8.2) g/dL Albumin (3.5-5.0) g/dL 11/26/18 11/26/18 Range/Units 06:44 11:25 WBC (3.8-10.6) k/uL RBC (4.30-5.90) m/uL Hgb (13.0-17.5) gm/dL Hct (39.0-53.0) % RDW (11.5-15.5) % Chloride 108 H (98-107) mmol/L BUN 25 H (9-20) mg/dL Creatinine 1.32 H (0.66-1.25) mg/dL POC Glucose (mg/dL) 145 H (75-99) mg/dL AST 13 L (17-59) U/L ALT 16 L (21-72) U/L Total Protein 5.6 L (6.3-8.2) g/dL Albumin 2.9 L (3.5-5.0) g/dL Microbiology - Last 24 Hours (Table) 11/24/18 17:25 Blood Culture - Preliminary Blood No Growth after 24 hours Assessment and Plan Assessment: 1. Nausea vomiting and diarrhea with elevated white count. Concerns for possible gastroenteritis. Continue with IV fluid hydration. Continue Zofran as needed. Consult infectious disease. Also check blood culture, urinalysis, influenza. Chest x-ray negative. abdominal ultrasound, revealing evidence of multiple small stones in the gallbladder without any evidence of acute cholecystitis. Per infectious disease patient likely has food related gastroenteritis. No instrument Mobile therapy is recommended at this point. 2. Leukocytosis: White count 24.3 on admission. Concerns that patient's white count has been continuously elevated on previous blood draws. Consult hematology. Patient is on prednisone for rheumatoid arthritis. Patient has history of CLL, hematology input review. Oncology service is baseline WBC 18- 25. Patient may follow-up with Dr. dover office after discharge 3. Elevated troponin with chest pain. Continue to monitor cardiac enzymes. Per cardiology borderline troponins with a flat trend. Continue cardiac medications and treatment treatment for gastroenteritis follow-up when necessary 4. Diabetes mellitus type 2 insulin-dependent. Add sliding scale coverage. Resume home insulin 5. History of ischemic cardiomyopathy status post AICD 6. History of CVA 7. Essential hypertension 8. Rheumatoid arthritis on chronic prednisone 9. Hyperlipidemia 10. Acute on Chronic kidney disease stage III. Continue with IV fluid hydration. Repeat labs in a.m. creatinine 1.32 11. Hyperkalemia potassium today is 6 will give Kayexalate 15 g today recheck labs in a.m. repeat potassium 4.2 12. Constipation. Colace will be added. DVT prophylaxis heparin. GI prophylaxis Protonix. I performed an examination of the patient and discussed their management with the Nurse Practitioner. I have reviewed the Nurse Practitioner's notes and agree with the documented findings and plan of care Patient is clinically improving possible discharge to home tomorrow Most likely diagnosis is gastroenteritis, viral versus food poisoning
--- NOTE | 2018-11-26 14:26 | P.DS ---
Providers Date of admission: 11/24/18 13:56 Expected date of discharge: 11/26/18 Attending physician: Kenyon Chaudhary Consults: 11/24/18 13:58 Consult Physician Urgent Consulting Provider: Quinn Griffin Consult Reason/Comments: Leukocytosis Do you want consulting provider notified?: Yes 11/24/18 14:13 Consult Physician Stat Consulting Provider: Yossi Bales Consult Reason/Comments: chest pain Do you want consulting provider notified?: Yes 11/24/18 15:12 Consult Physician Routine Consulting Provider: Randolph Moraes Consult Reason/Comments: elevated WBC, vomiting, diarrhea Do you want consulting provider notified?: Yes Primary care physician: Kenyon [facility] Course: Discharge diagnosis 1. Nausea vomiting and diarrhea with elevated white count. Concerns for possible gastroenteritis. Continue with IV fluid hydration. Continue Zofran as needed. Consult infectious disease. Also check blood culture, urinalysis, influenza. Chest x-ray negative. abdominal ultrasound, revealing evidence of multiple small stones in the gallbladder without any evidence of acute cholecystitis. Per infectious disease patient likely has food related gastroenteritis. No antibiotic therapy is recommended at this point. 2. Leukocytosis: White count 24.3 on admission. Concerns that patient's white count has been continuously elevated on previous blood draws. Consult hematology. Patient is on prednisone for rheumatoid arthritis. Patient has history of CLL, hematology input review. Oncology service is baseline WBC 18- 25. Patient may follow-up with Dr. griffin office after discharge 3. Elevated troponin with chest pain. Continue to monitor cardiac enzymes. Per cardiology borderline troponins with a flat trend. Continue cardiac medications and treatment treatment for gastroenteritis follow-up when necessary 4. Diabetes mellitus type 2 insulin-dependent. Resume home insulin 5. History of ischemic cardiomyopathy status post AICD 6. History of CVA 7. Essential hypertension 8. Rheumatoid arthritis on chronic prednisone 9. Hyperlipidemia 10. Acute on Chronic kidney disease stage III. Continue with IV fluid hydration. Repeat labs in a.m. creatinine 1.32 11. Hyperkalemia potassium today is 6 will give Kayexalate 15 g today recheck labs in a.m. repeat potassium 4.2 12. Constipation. Colace will be added. Hospital course This is a 78-year-old male with a known past medical history of ischemic cardiomyopathy status post AICD, coronary disease, CVA, diabetes mellitus, hyperlipidemia, hypertension, rheumatoid arthritis, chronic kidney disease stage III, Lyme disease and was now virus per chart. Patient reports that yesterday evening he started not feeling well. And then around 8:00 this morning he started having multiple episodes of vomiting and diarrhea. He also started have some chest discomfort after the vomiting. He came into the emergency room for further evaluation and treatment he is found to have a white count of 24.3 and elevated troponin of 0.097. Creatinine was elevated at 1.49 but patient does have underlying chronic kidney disease. Patient was given IV fluids and Zofran in the ER with some improvement. Infectious disease has been placed on consult. Blood culture urinalysis and influenza screen has been ordered. Chest x-ray showing mild cardiomegaly. Patient's white count is continuously elevated on his other blood work noted in his chart. Therefore hematology has also been placed on consult. Cardiology consulted for the elevated troponin and chest discomfort. EKG showing an atrial ventricular paced rhythm. Patient denies any fever chills or sweats. Denies any abdominal pain. Denies any urinary symptoms. Denies shortness of breath. Patient and and been eating the same foods. They deny eating any restaurant food or any food this been sitting out too long. They have not done any recent traveling. On 11/25/2018 patient was seen and examined he is alert and oriented 3 in no apparent distress he states he has improved significantly he had diarrhea and vomiting prior to presentation all these symptoms has resolved, there is no fever or chills no headache or dizziness no chest pain no shortness of breath no cough no nausea or vomiting no abdominal pain no diarrhea and no urinary symptoms. Potassium is elevated today at 6 white blood count is down to 11 On 11/26/2018 patient is alert and oriented 3. At this time patient is complaining of constipation. Colace has been added. Patient denies chest pain or shortness breath. Patient denies nausea vomiting or diarrhea. Patient denies any urinary burning or frequency. Patient to be discharged home. Diarrhea has resolved. Patient to follow-up closely with consulting providers and PCP. No need for antibiotics per infectious disease I performed an examination of the patient and discussed their management with the Nurse Practitioner. I have reviewed the Nurse Practitioner's notes and agree with the documented findings and plan of care Patient Condition at Discharge: Stable Plan - Discharge Summary Discharge Rx Participant: No New Discharge Prescriptions: Continue Allopurinol 300 mg PO DAILY Cholecalciferol [Vitamin D3] 1,000 unit PO DAILY Ascorbic Acid [Vitamin C] 500 mg PO DAILY predniSONE 5 mg PO DAILY Aspirin EC [Ecotrin Low Dose] 81 mg PO DAILY #0 Insulin Aspart [NovoLOG Flexpen] 10 unit SQ AC-TID Insulin Detemir [Levemir Flextouch] See Protocol SQ DIRECTED Insulin Detemir [Levemir Flextouch] 25 unit SQ HS Torsemide [Demadex] 10 mg PO DAILY Omeprazole [PriLOSEC] 20 mg PO DAILY Carvedilol [Coreg] 6.25 mg PO DAILY Insulin Aspart [NovoLOG Flexpen] See Protocol SQ AC-TID Discharge Medication List Allopurinol 300 mg PO DAILY 05/31/16 [History] Ascorbic Acid [Vitamin C] 500 mg PO DAILY 09/23/17 [History] Cholecalciferol [Vitamin D3] 1,000 unit PO DAILY 09/23/17 [History] predniSONE 5 mg PO DAILY 04/30/18 [History] Aspirin EC [Ecotrin Low Dose] 81 mg PO DAILY #0 05/09/18 [Rx] Carvedilol [Coreg] 6.25 mg PO DAILY 11/24/18 [History] Insulin Aspart [NovoLOG Flexpen] 10 unit SQ AC-TID 11/24/18 [History] Insulin Aspart [NovoLOG Flexpen] See Protocol SQ AC-TID 11/24/18 [History] Insulin Detemir [Levemir Flextouch] 25 unit SQ HS 11/24/18 [History] Insulin Detemir [Levemir Flextouch] See Protocol SQ DIRECTED 11/24/18 [ History] Omeprazole [PriLOSEC] 20 mg PO DAILY 11/24/18 [History] Torsemide [Demadex] 10 mg PO DAILY 11/24/18 [History] Follow up Appointment(s)/Referral(s): Kenyon Chaudhary MD [Primary Care Provider] - 12/05/18 11:00 am (Saturday) Quinn Griffin MD [STAFF PHYSICIAN] - 1 Week Randolph Moraes MD [STAFF PHYSICIAN] - 1 Week Activity/Diet/Wound Care/Special Instructions: Diet heart healthy Activity as tolerated Discharge Disposition: HOME SELF-CARE
[2018-11-26 14:33] VITALS: PULSE 60; RESP 16
[2018-11-26 14:40] VITALS: BP 146/65; TEMP 97.8
== END 2018-11-26 15:54 | disposition home or self-care (01) | DRG 392 ==
LOC: EC 11:02 → 3SCARD 13:56
PROVIDERS: ADMIT Internal Medicine; ATTEND Internal Medicine
DX: K52.9 Noninfective gastroenteritis and colitis, unspecified (principal); N17.9 Acute kidney failure, unspecified; E86.0 Dehydration; E11.22 Type 2 diabetes mellitus with diabetic chronic kidney disease; E87.5 Hyperkalemia; I25.5 Ischemic cardiomyopathy; K80.20 Calculus of gallbladder without cholecystitis without obstruction; M06.9 Rheumatoid arthritis, unspecified; N18.3 Chronic kidney disease, stage 3 (moderate); E78.5 Hyperlipidemia, unspecified; I12.9 Hypertensive chronic kidney disease with stage 1 through stage 4 chronic kidney disease, or unspecified chronic kidney disease; D72.820 Lymphocytosis (symptomatic); I25.10 Atherosclerotic heart disease of native coronary artery without angina pectoris; K59.00 Constipation, unspecified; E07.9 Disorder of thyroid, unspecified; K44.9 Diaphragmatic hernia without obstruction or gangrene; M10.9 Gout, unspecified; R07.89 Other chest pain; R77.9 Abnormality of plasma protein, unspecified; D72.829 Elevated white blood cell count, unspecified; Z79.4 Long term (current) use of insulin; Z79.52 Long term (current) use of systemic steroids; Z79.899 Other long term (current) drug therapy; Z79.82 Long term (current) use of aspirin; Z88.8 Allergy status to other drugs, medicaments and biological substances; Z88.1 Allergy status to other antibiotic agents; Z91.041 Radiographic dye allergy status; Z88.0 Allergy status to penicillin; Z91.013 Allergy to seafood; Z86.19 Personal history of other infectious and parasitic diseases; Z86.73 Personal history of transient ischemic attack (TIA), and cerebral infarction without residual deficits; Z87.01 Personal history of pneumonia (recurrent); Z87.891 Personal history of nicotine dependence; Z95.810 Presence of automatic (implantable) cardiac defibrillator
CPT/HCPCS: 36415; 71046; 76700; 80053; 81003; 82150; 82550; 82553; 83036; 83690; 83735; 84484; 85025; 85610; 85730; 87040; 87045; 87046; 87502; 93005; 96361; 96374; 99285

== ENCOUNTER 2019-02-27 11:41 | Inpatient (IN) | payer MEDICARE, BC ==
[2019-02-27] MEDS ORDERED: ONDANSETRON 4 MG/2 ML VIAL IVP PRN (13:37)
[2019-02-27] MEDS ORDERED: ACETAMINOPHEN TAB 325 MG TAB PO PRN (13:37)
[2019-02-27] MEDS ORDERED: IPRATROPIUM-ALBUTEROL 3 ML NEB INHALATION PRN (13:44)
--- NOTE | 2019-02-27 13:59 | P.HPIM ---
History of Present Illness H&P Date: 02/27/19 Chief Complaint: Not feeling well This is a 79-year-old male with a known past medical history of ischemic cardiomyopathy status post AICD, CVA, diabetes mellitus, hypertension, rheumatoid arthritis, hyperlipidemia, chronic kidney disease, COPD and CLL. Patient is a direct admit from Dr. Chaudhary's office with complaints of a productive cough with brownish to yellowish sputum for the past 3 days. Patient reports that he had taken Augmentin in the outpatient setting for 2 days with no improvement. In fact he felt that his symptoms were worsening. He was admitted to the hospital for COPD exacerbation with bronchitis and possible pneumonia. He'll be placed on IV Rocephin and azithromycin and IV Solu-Medrol. 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 James and. Ulnar service will be placed on consult. Patient denies any fever, chills, sweats, nausea or vomiting. Does report 2 episodes of diarrhea. Stool for C. diff was ordered. Denies any burning with urination. Review of Systems Please refer to HPI otherwise unremarkable Past Medical History Past Medical History: Coronary Artery Disease (CAD), CVA/TIA, Diabetes Mellitus, GI Bleed, Hyperlipidemia, Hypertension, Musculoskeletal Disorder, Renal Disease, Rheumatoid Arthritis (RA), Thyroid Disorder Additional Past Medical History / Comment(s): chronic renal failure, chronic hyperkalemia, gout, 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 History of Any Multi-Drug Resistant Organisms: None Reported Past Surgical History: AICD, Back Surgery, Heart Catheterization, Pacemaker, Tonsillectomy Additional Past Surgical History / Comment(s): Biventricular AICD placement, back surgery 5, cardiac catheterization, tonsillectomy; colonoscopy Past Anesthesia/Blood Transfusion Reactions: No Reported Reaction Additional Past Anesthesia/Blood Transfusion Reaction / Comment(s): blood transfusion-no reaction Type of Cardiac Device: Permanent Pacemaker, AICD Device Placement Date:: 2016 Past Psychological History: No Psychological Hx Reported Additional Psychological History / Comment(s): and lives with his . 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 No international travel since. Past dogs in the home. No current tobacco or alcohol use Smoking Status: Former smoker Past Alcohol Use History: Occasional Past Drug Use History: None Reported - Past Family History Mother Family Medical History: No Reported History Father History Unknown: Yes Family Medical History: No Reported History Additional Family Medical History / Comment(s): Father was healthy and lived to be 88yrs old. Medications and Allergies Home Medications Medication Instructions Recorded Confirmed Type Allopurinol 300 mg PO DAILY 05/31/16 11/24/18 History Ascorbic Acid [Vitamin C] 500 mg PO DAILY 09/23/17 11/24/18 History Cholecalciferol [Vitamin D3] 1,000 unit PO DAILY 09/23/17 11/24/18 History predniSONE 5 mg PO DAILY 04/30/18 11/24/18 History Aspirin EC [Ecotrin Low Dose] 81 mg PO DAILY #0 05/09/18 11/24/18 Rx Carvedilol [Coreg] 6.25 mg PO DAILY 11/24/18 11/24/18 History Insulin Aspart [NovoLOG Flexpen] 10 unit SQ AC-TID 11/24/18 11/24/18 History Insulin Aspart [NovoLOG Flexpen] See Protocol SQ AC-TID 11/24/18 11/24/18 History Insulin Detemir [Levemir Flextouch] 25 unit SQ HS 11/24/18 11/24/18 History Omeprazole [PriLOSEC] 20 mg PO DAILY 11/24/18 11/24/18 History Torsemide [Demadex] 10 mg PO DAILY 11/24/18 11/24/18 History Pravastatin Sodium [Pravachol] 40 mg PO HS 02/27/19 02/27/19 History Allergies Allergy/AdvReac Type Severity Reaction Status Date / Time amlodipine Allergy Swelling Verified 02/27/19 13:28 doxycycline Allergy Anaphylaxis Verified 02/27/19 13:28 Iodinated Contrast- Oral and Allergy Anaphylaxis Verified 02/27/19 13:28 IV Dye iodine Allergy Rash/Hives Verified 02/27/19 13:28 metronidazole [From Flagyl] Allergy Rash/Hives Verified 02/27/19 13:28 shrimp Allergy Rash/Hives Verified 02/27/19 13:28 acarbose AdvReac Abdominal Verified 02/27/19 13:28 Pain amoxicillin trihydrate AdvReac Nausea & Verified 02/27/19 13:28 [From Augmentin] Vomiting potassium clavulanate AdvReac Nausea & Verified 02/27/19 13:28 [From Augmentin] Vomiting Physical Exam Vitals: Vital Signs Temp Pulse Resp BP Pulse Ox 02/27/19 13:03 98.3 F 80 20 153/69 98 Intake and Output 02/26/19 02/27/19 02/27/19 22:59 06:59 14:59 Other: Weight 85.22 kg Head normocephalic Neck supple Lungs lungs diminished no wheezing or crackles noted Heart regular rate and rhythm S1-S2, no rub or gallop Abdomen is soft nontender nondistended positive bowel sounds no hepatosplenomegaly Extremities no edema Neuro alert and orientated to 3 Thrombosis Risk Factor Assmnt - Choose All That Apply Any of the Below Risk Factors Present?: Yes Each Factor Represents 1 point: Serious lung disease incl. pneumonia (< 1month) Other Risk Factors: Yes Each Risk Factor Represents 3 Points: Age 75 years or older Other congenital or acquired thrombophilia - If yes, enter type in comment: No Thrombosis Risk Factor Assessment Total Risk Factor Score: 4 Thrombosis Risk Factor Assessment Level: Moderate Risk Assessment and Plan Assessment: 1. Productive cough: Possibly bronchitis versus pneumonia. Failed outpatient treatment with Augmentin. Start patient on Rocephin and azithromycin. Check chest x-ray. Consult pulmonary service 2. Acute COPD exacerbation: Start IV Solu-Medrol and bronchodilators. Consult pulmonary service 3. Diabetes mellitus insulin-dependent. Resume home insulin. Add sliding scale coverage scale for steroids. Check A1c 4. Essential hypertension 5. Chronic kidney disease stage III 6. Chronic lymphocytic leukemia 7. CVA 8. Rheumatoid arthritis on chronic prednisone 9. Hyperlipidemia 10. History of ischemic cardiomyopathy status post AICD 11. Diarrhea check stool for C. diff GI prophylaxis Pepcid and DVT prophylaxis subcu heparin Check routine labs CBC and CMP. Start IV steroids bronchodilators. Consult pulmonary service. Reconcile home medications Time with Patient: Greater than 30 (Greater than 50% of the total time spent in counseling and coordination of care.I performed an examination of the patient and discussed their management with the physician Staff Consultant. I have reviewed the Physician Staff Consultant's notes and agree with the documented findings and plan of care)
[2019-02-27 14:05] VITALS: BMI 25.4
--- NOTE | 2019-02-27 14:12 | XR ---
EXAMINATION TYPE: XR chest 2V DATE OF EXAM: 02/27/2019 COMPARISON: 11/24/2019 TECHNIQUE: PA and lateral views submitted. HISTORY: Cough FINDINGS: The lungs are clear and there is no pneumothorax, pleural effusion, or focal pneumonia. Mediastinum is somewhat prominent. Heart size stable. Cardiac device noted. Underlying COPD suspected. Hypertrop hic and degenerative change of the spine. IMPRESSION: 1. Stable findings suggestive of COPD. Upper mediastinum is somewhat prominent but stable from the pr ior exam and may represent ectatic vasculature.
[2019-02-27] MEDS: CARVEDILOL 6.25 MG TAB PO SCH (14:21)
[2019-02-27 14:22] LABS: Basophils # (A) 0.1 k/uL (0-0.2); Basophils % (A) 1 %; Eosinophils # (A) 1.5 k/uL (0-0.7); Eosinophils % (A) 10 %; HGB 13.1 gm/dL (13.0-17.5); Lymphocytes # (A) 4.1 k/uL (1.0-4.8); Lymphocytes % (A) 28 %; MCV 87.5 fL (80.0-100.0); Mean Platelet Volume 9.8; Monocytes % (A) 6 %; Neutrophils # (A) 7.8 k/uL (1.3-7.7); Neutrophils % (A) 53 %; Platelet Count 339 k/uL (150-450); RBC 4.68 m/uL (4.30-5.90); RDW 15.9 % (11.5-15.5); WBC 14.8 k/uL (3.8-10.6)
--- NOTE | 2019-02-27 14:33 | P.CNPUL ---
History of Present Illness Consult date: 02/27/19 Requesting physician: Kenyon Chaudhary Reason for consult: dyspnea Chief complaint: Shortness of breath, cough, congestion History of present illness: This is a very pleasant 79-year-old gentleman who follows with Dr. Chaudhary as his primary care physician. He has a history of coronary artery disease, severe ischemic cardiomyopathy status post BiV AICD, CVA/TIA, diabetes mellitus, GI bleeds, hypertension, hyperlipidemia, chronic renal failure, chronic hyperkalemia, gout, history of West Nile's disease, history of Lyme's disease, rheumatoid arthritis. The patient also follows with Dr. Isaac in our office for history of interstitial lung disease/rheumatoid lung disease and chronic dyspnea on exertion. He had previously been on methotrexate. He is maintained on 5 mg of prednisone daily. His FVC is 78%. He does have a remote [id number] smoking history. FEV1 value 86% of predicted. Not currently on any bronchodilators in the outpatient setting. He is not oxygen dependent. He was seen last 02/02/2019 and at that time his pulmonary status was fine. He presented to his primary care physician earlier today with complaints of increasing shortness of breath, cough and congestion. Yellow productive sputum. Dyspnea on exertion. He was admitted directly for suspected pneumonia. He had been on Augmentin a few days prior without much improvement. He is seen today in consultation on the selective care unit. He is currently awake and alert in no acute distress. No oxygen at present. He is maintaining O2 saturations in the upper 90s. He is afebrile. Hemodynamically stable. He does have a loose nonproductive cough. He also has complaints of 2 episodes of diarrhea. C. diff is pending. Chest x-ray pending. Lab work is pending. He has been initiated on ceftriaxone and azithromycin along with IV Solu-Medrol and DuoNeb inhalations. Lungs sounds with few scattered rhonchi, end expiratory wheeze, diminished. Review of Systems REVIEW OF SYSTEMS: CONSTITUTIONAL: Denies any recent significant weight loss or weight gain. EYES: Denies change in vision. EARS, NOSE, MOUTH, THROAT: Denies headaches, denies sore throat. CARDIOVASCULAR: Denies chest pain, palpitations or syncopal episodes. RESPIRATORY: Positive for shortness of breath, cough, congestion no hemoptysis. GASTROINTESTINAL: Denies change in appetite, denies abdominal pain. Positive for diarrhea 2. GENITOURINARY: Denies hematuria, denies infections. MUSKULOSKELETAL: Denies pain, denies swelling. INTEGUMENTARY: Denies rash, denies eczema. NEUROLOGICAL: Denies recent memory loss, no recent seizure activity. PSYCHIATRIC: Denies anxiety, denies depression. HEMATOLOGIC/LYMPHATIC: Denies anemia, denies enlarged lymph nodes. Past Medical History Past Medical History: Coronary Artery Disease (CAD), CVA/TIA, Diabetes Mellitus, GI Bleed, Hyperlipidemia, Hypertension, Musculoskeletal Disorder, Renal Disease, Rheumatoid Arthritis (RA), Thyroid Disorder Additional Past Medical History / Comment(s): Interstitial lung disease/rheumatoid lung, chronic renal failure, chronic hyperkalemia, gout, 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 History of Any Multi-Drug Resistant Organisms: None Reported Past Surgical History: AICD, Back Surgery, Heart Catheterization, Pacemaker, Tonsillectomy Additional Past Surgical History / Comment(s): Biventricular AICD placement, back surgery 5, cardiac catheterization, tonsillectomy; colonoscopy Past Anesthesia/Blood Transfusion Reactions: No Reported Reaction Additional Past Anesthesia/Blood Transfusion Reaction / Comment(s): blood transfusion-no reaction Type of Cardiac Device: Permanent Pacemaker, AICD Device Placement Date:: 2016 Past Psychological History: No Psychological Hx Reported Additional Psychological History / Comment(s): and lives with his . 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 No international travel since. No current tobacco or alcohol use Smoking Status: Former smoker Past Alcohol Use History: Occasional Additional Past Alcohol Use History / Comment(s): SMOKED 30 YEARS, 2 1/2 PPD, QUIT 1988 EST Past Drug Use History: None Reported - Past Family History Mother Family Medical History: No Reported History Father History Unknown: Yes Family Medical History: No Reported History Additional Family Medical History / Comment(s): Father was healthy and lived to be 88yrs old. Medications and Allergies Home Medications Medication Instructions Recorded Confirmed Type Allopurinol 300 mg PO DAILY 05/31/16 02/27/19 History Ascorbic Acid [Vitamin C] 1,000 mg PO DAILY 09/23/17 02/27/19 History Cholecalciferol [Vitamin D3] 1,000 unit PO DAILY 09/23/17 02/27/19 History predniSONE 5 mg PO DAILY 04/30/18 02/27/19 History Aspirin EC [Ecotrin Low Dose] 81 mg PO DAILY #0 05/09/18 02/27/19 Rx Carvedilol [Coreg] 6.25 mg PO DAILY 11/24/18 02/27/19 History Insulin Aspart [NovoLOG Flexpen] 10 unit SQ AC-TID 11/24/18 02/27/19 History Insulin Aspart [NovoLOG Flexpen] See Protocol SQ AC-TID 11/24/18 02/27/19 History Insulin Detemir [Levemir Flextouch] 30 unit SQ HS 11/24/18 02/27/19 History Omeprazole [PriLOSEC] 20 mg PO DAILY 11/24/18 02/27/19 History Torsemide [Demadex] 10 mg PO DAILY 11/24/18 02/27/19 History Pravastatin Sodium [Pravachol] 40 mg PO HS 02/27/19 02/27/19 History Allergies Allergy/AdvReac Type Severity Reaction Status Date / Time amlodipine Allergy Swelling Verified 02/27/19 13:28 doxycycline Allergy Anaphylaxis Verified 02/27/19 13:28 Iodinated Contrast- Oral and Allergy Anaphylaxis Verified 02/27/19 13:28 IV Dye iodine Allergy Rash/Hives Verified 02/27/19 13:28 metronidazole [From Flagyl] Allergy Rash/Hives Verified 02/27/19 13:28 shrimp Allergy Rash/Hives Verified 02/27/19 13:28 acarbose AdvReac Abdominal Verified 02/27/19 13:28 Pain amoxicillin trihydrate AdvReac Nausea & Verified 02/27/19 13:28 [From Augmentin] Vomiting potassium clavulanate AdvReac Nausea & Verified 02/27/19 13:28 [From Augmentin] Vomiting Physical Exam Vitals: Vital Signs Temp Pulse Resp BP Pulse Ox 02/27/19 13:03 98.3 F 80 20 153/69 98 Intake and Output 02/26/19 02/27/19 02/27/19 22:59 06:59 14:59 Other: Weight 85.22 kg GENERAL EXAM: Alert, active, comfortable in no apparent distress. On room air. HEAD: Normocephalic. EYES: Normal reaction of pupils, equal size. NOSE: Clear with pink turbinates. THROAT: No erythema or exudates. NECK: No masses, no JVD. CHEST: No chest wall deformity. LUNGS: Equal air entry with scattered rhonchi, wheeze, diminished. CVS: S1 and S2 normal with no audible murmur, regular rhythm. ABDOMEN: No hepatosplenomegaly, normal bowel sounds, no guarding or rigidity. SPINE: No scoliosis or deformity SKIN: No rashes CENTRAL NERVOUS SYSTEM: No focal deficits, tone is normal in all 4 extremities. EXTREMITIES: There is no peripheral edema. No clubbing, no cyanosis. Peripheral pulses are intact. Results - Diagnostic Findings Chest x-ray: pending Assessment and Plan Assessment: Impression: #1 Acute exacerbation of chronic obstructive pulmonary disease, care by purulent tracheobronchitis versus community-acquired pneumonia. Chest x-ray and labs pending. #2 Acute on chronic dyspnea secondary to above as well as secondary to interstitial lung disease/rheumatoid lung. #3 Rheumatoid arthritis, previously on methotrexate. Currently on prednisone 5 mg daily. #4 Previous history of [id number] smoking. #5 Coronary artery disease. #6 Ischemic cardiomyopathy status post biventricular AICD placement. #7 Diabetes mellitus. #8 Hyperlipidemia. #9 History of Lyme's disease. #10 History of West Nile's disease. #11 Chronic renal failure. #12 History of hyperkalemia. #13 History of CVA/TIA. #14 History of GI bleed. Plan: The patient was seen and evaluated by Dr. Simons. Chest x-ray and labs will be reviewed. Agree with the current treatment plan including ceftriaxone and azithromycin along with IV Solu-Medrol, bronchodilators. Obtain a sputum sample. Heparin for DVT prophylaxis. We will continue to follow and make further recommendations based on his clinical status. I, the cosigning physician, performed a history & physical examination of the patient. Lungs sounds with bilateral scattered rhonchi, wheeze, diminished. Maintaining good O2 saturations in the 90s on room air. I discussed the assessment and plan of care with my nurse practitioner, Marlene Rg. I attest to the above note as dictated by her. Time with Patient: Greater than 30
[2019-02-27] MEDS: SODIUM CHLORIDE 0.9% 1,000 ML IV SCH (15:05)
[2019-02-27 15:16] LABS: Albumin 3.7 g/dL (3.5-5.0); Calcium 9.6 mg/dL (8.4-10.2); Potassium 5.3 mmol/L (3.5-5.1); Total Bilirubin 0.5 mg/dL (0.2-1.3)
[2019-02-27] MEDS: AZITHROMYCIN 500 MG in SODIUM CHLORIDE 0.9% 250 ML IVPB SCH (15:17)
[2019-02-27] MEDS: IPRATROPIUM-ALBUTEROL 3 ML NEB INHALATION SCH ×2 (15:39→20:08)
[2019-02-27 16:43] LABS: Glucose,Whole Blood 216 mg/dL (75-99)
[2019-02-27] MEDS ORDERED: INSULIN ASPART (NovoLOG) 100 UNIT/ML VIAL SQ SCH (17:30)
[2019-02-27] MEDS: INSULIN ASPART (NovoLOG) 100 UNIT/ML VIAL SQ SCH ×3 (17:57→21:36)
[2019-02-27] MEDS: methylPREDNISolone SOD SUCCI 125 MG/2 ML VIAL IV SCH (17:58)
[2019-02-27 20:56] LABS: Glucose,Whole Blood 102 mg/dL (75-99)
[2019-02-27] MEDS: INSULIN DETEMIR (LEVEMIR) 100 UNIT/ML SYR SQ SCH (21:36)
[2019-02-27] MEDS: HEPARIN SODIUM,PORCINE 5,000 UNIT/ML 1 ML VIAL SQ SCH (21:53)
[2019-02-27] MEDS: PRAVASTATIN SODIUM 40 MG TAB PO SCH (21:53)
[2019-02-27] MEDS: ZOLPIDEM 5 MG TAB PO PRN (22:45)
[2019-02-28] MEDS: methylPREDNISolone SOD SUCCI 125 MG/2 ML VIAL IV SCH ×3 (03:19→17:32)
[2019-02-28] MEDS: SODIUM CHLORIDE 0.9% 1,000 ML IV SCH (06:14)
[2019-02-28 06:33] LABS: Glucose,Whole Blood 313 mg/dL (75-99)
[2019-02-28] MEDS: CARVEDILOL 6.25 MG TAB PO SCH (07:01)
[2019-02-28] MEDS: PANTOPRAZOLE 40 MG TABLET PO SCH ×2 (07:01→21:49)
[2019-02-28] MEDS: IPRATROPIUM-ALBUTEROL 3 ML NEB INHALATION SCH ×4 (07:14→21:35)
[2019-02-28] MEDS: INSULIN ASPART (NovoLOG) 100 UNIT/ML VIAL SQ SCH ×7 (07:23→21:45)
[2019-02-28 07:56] LABS: Anisocytosis Slight; Basophils % (A) 0 %; Eosinophils % (A) 0 %; HCT 39.5 % (39.0-53.0); HGB 12.5 gm/dL (13.0-17.5); Hypochromasia Slight; Lymphocytes # (A) 2.2 k/uL (1.0-4.8); Lymphocytes % (A) 19 %; MCH 28.3 pg (25.0-35.0); MCHC 31.7 g/dL (31.0-37.0); MCV 89.2 fL (80.0-100.0); Mean Platelet Volume 10.1; Monocytes # (A) 0.2 k/uL (0-1.0); Monocytes % (A) 2 %; Neutrophils # (A) 9.3 k/uL (1.3-7.7); Neutrophils % (A) 79 %; Platelet Count 271 k/uL (150-450); RBC 4.43 m/uL (4.30-5.90); RDW 16.3 % (11.5-15.5); WBC 11.8 k/uL (3.8-10.6)
[2019-02-28 08:15] LABS: Albumin 3.3 g/dL (3.5-5.0); Calcium 9.1 mg/dL (8.4-10.2); Potassium 5.5 mmol/L (3.5-5.1); Total Bilirubin 0.4 mg/dL (0.2-1.3); Total Protein 6.4 g/dL (6.3-8.2)
[2019-02-28] MEDS: HEPARIN SODIUM,PORCINE 5,000 UNIT/ML 1 ML VIAL SQ SCH ×2 (09:10→21:43)
[2019-02-28] MEDS: TORSEMIDE 20 MG TAB PO SCH (09:10)
[2019-02-28] MEDS: ASCORBIC ACID 500 MG TAB PO SCH (09:10)
[2019-02-28] MEDS: ALLOPURINOL 300 MG TAB PO SCH (09:10)
[2019-02-28] MEDS: ASPIRIN 81 MG PO SCH (09:10)
[2019-02-28] MEDS: CHOLECALCIFEROL 1,000 UNIT TAB PO SCH (09:10)
[2019-02-28] MEDS: FAMOTIDINE 20 MG TAB PO SCH (09:10)
[2019-02-28] MEDS: AZITHROMYCIN 500 MG in SODIUM CHLORIDE 0.9% 250 ML IVPB SCH (11:37)
--- NOTE | 2019-02-28 11:59 | P.PN ---
Subjective Progress Note Date: 02/28/19 This is a 79-year-old male with a known past medical history of ischemic cardiomyopathy status post AICD, CVA, diabetes mellitus, hypertension, rheumatoid arthritis, hyperlipidemia, chronic kidney disease, COPD and CLL. Patient is a direct admit from Dr. Chaudhary's office with complaints of a productive cough with brownish to yellowish sputum for the past 3 days. Patient reports that he had taken Augmentin in the outpatient setting for 2 days with no improvement. In fact he felt that his symptoms were worsening. He was admitted to the hospital for COPD exacerbation with bronchitis and possible pneumonia. He'll be placed on IV Rocephin and azithromycin and IV Solu-Medrol. His etl consultant is Dr. James and. Ulnar service will be placed on consult. Patient denies any fever, chills, sweats, nausea or vomiting. Does report 2 episodes of diarrhea. Stool for C. diff was ordered. Denies any burning with urination. On 02/28/2019 patient was seen and examined on the telemetry floor he is alert and oriented 3 in no apparent distress vital exam is stable he is still complaining of cough he is complaining of shortness of breath with activity otherwise there is no complaints there is no fever or chills no headache or dizziness no chest pain no shortness of breath no cough no nausea or vomiting no abdominal pain no diarrhea and no urinary symptoms. Objective - Vital Signs Vital signs: Vital Signs Temp 98.0 F 02/28/19 11:37 Pulse 92 02/28/19 11:37 Resp 20 02/28/19 11:37 BP 158/68 02/28/19 11:37 Pulse Ox 99 02/28/19 11:37 Intake & Output 02/27/19 02/28/19 02/28/19 18:59 06:59 18:59 Intake Total 230 250 180 Output Total 200 Balance 230 50 180 Weight 85.22 kg 85.3 kg Intake: Oral 230 250 180 Output: Urine 200 Other: Voiding Method Toilet Toilet Toilet # Voids 1 0 # Bowel Movements 0 - Exam Head normocephalic and atraumatic Neck supple Lungs lungs diminished no wheezing or crackles noted Heart regular rate and rhythm S1-S2, no rub or gallop Abdomen is soft nontender nondistended positive bowel sounds no hepatosplenomegaly Extremities no edema, no cyanosis or clubbing Neuro alert and orientated to 3 no gross focal deficit - Labs CBC & Chem 7: 02/28/19 07:03 02/28/19 07:03 Labs: Abnormal Lab Results - Last 24 Hours (Table) 02/27/19 02/27/19 02/27/19 Range/Units 14:12 14:12 16:41 WBC 14.8 H (3.8-10.6) k/uL Hgb (13.0-17.5) gm/dL RDW 15.9 H (11.5-15.5) % Neutrophils # 7.8 H (1.3-7.7) k/uL Eosinophils # 1.5 H (0-0.7) k/uL Sodium (137-145) mmol/L Potassium 5.3 H (3.5-5.1) mmol/L Carbon Dioxide (22-30) mmol/L BUN 26 H (9-20) mg/dL Creatinine 1.38 H (0.66-1.25) mg/dL Glucose 177 H (74-99) mg/dL POC Glucose (mg/dL) 216 H (75-99) mg/dL ALT (21-72) U/L Albumin (3.5-5.0) g/dL 02/27/19 02/28/19 02/28/19 Range/Units 20:45 06:31 07:03 WBC 11.8 H (3.8-10.6) k/uL Hgb 12.5 L (13.0-17.5) gm/dL RDW 16.3 H (11.5-15.5) % Neutrophils # 9.3 H (1.3-7.7) k/uL Eosinophils # (0-0.7) k/uL Sodium (137-145) mmol/L Potassium (3.5-5.1) mmol/L Carbon Dioxide (22-30) mmol/L BUN (9-20) mg/dL Creatinine (0.66-1.25) mg/dL Glucose (74-99) mg/dL POC Glucose (mg/dL) 102 H 313 H (75-99) mg/dL ALT (21-72) U/L Albumin (3.5-5.0) g/dL 02/28/19 Range/Units 07:03 WBC (3.8-10.6) k/uL Hgb (13.0-17.5) gm/dL RDW (11.5-15.5) % Neutrophils # (1.3-7.7) k/uL Eosinophils # (0-0.7) k/uL Sodium 136 L (137-145) mmol/L Potassium 5.5 H (3.5-5.1) mmol/L Carbon Dioxide 18 L (22-30) mmol/L BUN 29 H (9-20) mg/dL Creatinine 1.31 H (0.66-1.25) mg/dL Glucose 362 H (74-99) mg/dL POC Glucose (mg/dL) (75-99) mg/dL ALT 20 L (21-72) U/L Albumin 3.3 L (3.5-5.0) g/dL Assessment and Plan Plan: 1. Acute purulant bronchitis. Failed outpatient treatment with Augmentin. Start patient on Rocephin and azithromycin. Check chest x-ray. Consult pulmonary service 2. Acute COPD exacerbation: Start IV Solu-Medrol and bronchodilators. Consult pulmonary service 3. Diabetes mellitus insulin-dependent. Resume home insulin. Add sliding scale coverage scale for steroids. Check A1c 4. Essential hypertension 5. Chronic kidney disease stage III 6. Chronic lymphocytic leukemia 7. CVA 8. Rheumatoid arthritis on chronic prednisone 9. Hyperlipidemia 10. History of ischemic cardiomyopathy status post AICD 11. Diarrhea check stool for C. diff GI prophylaxis Pepcid and DVT prophylaxis subcu heparin
[2019-02-28 12:05] LABS: Glucose,Whole Blood 286 mg/dL (75-99)
--- NOTE | 2019-02-28 13:24 | P.PN ---
Subjective Progress Note Date: 02/28/19 Principal diagnosis: Acute tracheobronchitis complicated by bronchospasm. This is a very pleasant 79-year-old gentleman who follows with Dr. Chaudhary as his primary care physician. He has a history of coronary artery disease, severe ischemic cardiomyopathy status post BiV AICD, CVA/TIA, diabetes mellitus, GI bleeds, hypertension, hyperlipidemia, chronic renal failure, chronic hyperkalemia, gout, history of West Nile's disease, history of Lyme's disease, rheumatoid arthritis. The patient also follows with Dr. Isaac in our office for history of interstitial lung disease/rheumatoid lung disease and chronic dyspnea on exertion. He had previously been on methotrexate. He is maintained on 5 mg of prednisone daily. His FVC is 78%. He does have a remote 70-lzwk-vgbq smoking history. FEV1 value 86% of predicted. Not currently on any bronchodilators in the outpatient setting. He is not oxygen dependent. He was seen last 02/02/2019 and at that time his pulmonary status was fine. He presented to his primary care physician earlier today with complaints of increasing shortness of breath, cough and congestion. Yellow productive sputum. Dyspnea on exertion. He was admitted directly for suspected pneumonia. He had been on Augmentin a few days prior without much improvement. He is seen today in consultation on the selective care unit. He is currently awake and alert in no acute distress. No oxygen at present. He is maintaining O2 saturations in the upper 90s. He is afebrile. Hemodynamically stable. He does have a loose nonproductive cough. He also has complaints of 2 episodes of diarrhea. C. diff is pending. Chest x-ray pending. Lab work is pending. He has been initiated on ceftriaxone and azithromycin along with IV Solu-Medrol and DuoNeb i nhalations. Lungs sounds with few scattered rhonchi, end expiratory wheeze, diminished. The patient is seen again today 02/28/2019 in follow-up on the selective care unit. He is awake and alert in no acute distress. Resting quite comfortably in bed. He states he is breathing easier today as compared to yesterday. Maintaining good O2 saturations in the high 90s on room air. He remains afebri le. Hemodynamically stable. White count 11.8. Hemoglobin 12.5. Creatinine 1.31. He remains on IV Solu-Medrol, bronchodilators, ceftriaxone and azithromycin. Objective - Vital Signs Vital signs: Vital Signs Temp 98.0 F 02/28/19 11:37 Pulse 92 02/28/19 11:37 Resp 20 02/28/19 11:37 BP 158/68 02/28/19 11:37 Pulse Ox 99 02/28/19 11:37 Intake & Output 02/27/19 02/28/19 02/28/19 18:59 06:59 18:59 Intake Total 230 250 180 Output Total 200 Balance 230 50 180 Weight 85.22 kg 85.3 kg Intake: Oral 230 250 180 Output: Urine 200 Other: Voiding Method Toilet Toilet Toilet # Voids 1 0 # Bowel Movements 0 - Exam GENERAL EXAM: Alert, active, comfortable in no apparent distress. On room air. HEAD: Normocephalic. EYES: Normal reaction of pupils, equal size. NOSE: Clear with pink turbinates. THROAT: No erythema or exudates. NECK: No masses, no JVD. CHEST: No chest wall deformity. LUNGS: Equal air entry with scattered rhonchi, wheeze, diminished. CVS: S1 and S2 normal with no audible murmur, regular rhythm. ABDOMEN: No hepatosplenomegaly, normal bowel sounds, no guarding or rigidity. SPINE: No scoliosis or deformity SKIN: No rashes CENTRAL NERVOUS SYSTEM: No focal deficits, tone is normal in all 4 extremities. EXTREMITIES: There is no peripheral edema. No clubbing, no cyanosis. Peripheral pulses are intact. - Labs CBC & Chem 7: 02/28/19 07:03 02/28/19 07:03 Labs: Abnormal Lab Results - Last 24 Hours (Table) 02/27/19 02/27/19 02/27/19 Range/Units 14:12 14:12 16:41 WBC 14.8 H (3.8-10.6) k/uL Hgb (13.0-17.5) gm/dL RDW 15.9 H (11.5-15.5) % Neutrophils # 7.8 H (1.3-7.7) k/uL Eosinophils # 1.5 H (0-0.7) k/uL Sodium (137-145) mmol/L Potassium 5.3 H (3.5-5.1) mmol/L Carbon Dioxide (22-30) mmol/L BUN 26 H (9-20) mg/dL Creatinine 1.38 H (0.66-1.25) mg/dL Glucose 177 H (74-99) mg/dL POC Glucose (mg/dL) 216 H (75-99) mg/dL ALT (21-72) U/L Albumin (3.5-5.0) g/dL 02/27/19 02/28/19 02/28/19 Range/Units 20:45 06:31 07:03 WBC 11.8 H (3.8-10.6) k/uL Hgb 12.5 L (13.0-17.5) gm/dL RDW 16.3 H (11.5-15.5) % Neutrophils # 9.3 H (1.3-7.7) k/uL Eosinophils # (0-0.7) k/uL Sodium (137-145) mmol/L Potassium (3.5-5.1) mmol/L Carbon Dioxide (22-30) mmol/L BUN (9-20) mg/dL Creatinine (0.66-1.25) mg/dL Glucose (74-99) mg/dL POC Glucose (mg/dL) 102 H 313 H (75-99) mg/dL ALT (21-72) U/L Albumin (3.5-5.0) g/dL 02/28/19 02/28/19 Range/Units 07:03 12:03 WBC (3.8-10.6) k/uL Hgb (13.0-17.5) gm/dL RDW (11.5-15.5) % Neutrophils # (1.3-7.7) k/uL Eosinophils # (0-0.7) k/uL Sodium 136 L (137-145) mmol/L Potassium 5.5 H (3.5-5.1) mmol/L Carbon Dioxide 18 L (22-30) mmol/L BUN 29 H (9-20) mg/dL Creatinine 1.31 H (0.66-1.25) mg/dL Glucose 362 H (74-99) mg/dL POC Glucose (mg/dL) 286 H (75-99) mg/dL ALT 20 L (21-72) U/L Albumin 3.3 L (3.5-5.0) g/dL Assessment and Plan Assessment: Impression: #1 Acute purulent tracheobronchitis. Chest x-ray shows no pneumonia. #2 Acute on chronic dyspnea secondary to above as well as secondary to interstitial lung disease/rheumatoid lung. #3 Rheumatoid arthritis, previously on methotrexate. Currently on prednisone 5 mg daily. #4 Previous history of 75-cxuq-xgme smoking. #5 Coronary artery disease. #6 Ischemic cardiomyopathy status post biventricular AICD placement. #7 Diabetes mellitus. #8 Hyperlipidemia. #9 History of Lyme's disease. #10 History of West Nile's disease. #11 Chronic renal failure. #12 History of hyperkalemia. #13 History of CVA/TIA. #14 History of GI bleed. Plan: The patient was seen and evaluated by Dr. Simons. Chest x-ray and labs reviewed. Agree with the current treatment plan including ceftriaxone and azithromycin along with IV Solu-Medrol, bronchodilators. Heparin for DVT prophylaxis. We will continue to follow and make further recommendations based on his clinical status. Probable discharge in the a.m. I, the cosigning physician, performed a history & physical examination of the patient. Lungs sounds with bilateral scattered rhonchi, wheeze, diminished. Maintaining good O2 saturations in the 90s on room air. I discussed the assessment and plan of care with my nurse practitioner, Marlene Rg. I attest to the above note as dictated by her.
[2019-02-28 17:05] LABS: Glucose,Whole Blood 190 mg/dL (75-99)
[2019-02-28 20:37] LABS: Glucose,Whole Blood 168 mg/dL (75-99)
[2019-02-28 21:21] LABS: Hemoglobin A1C 7.1 % (4.0-6.0)
[2019-02-28] MEDS: PRAVASTATIN SODIUM 40 MG TAB PO SCH (21:43)
[2019-02-28] MEDS: ZOLPIDEM 5 MG TAB PO PRN (21:43)
[2019-02-28] MEDS: INSULIN DETEMIR (LEVEMIR) 100 UNIT/ML SYR SQ SCH (21:44)
[2019-02-28] MEDS: guaiFENesin-Coden 100-10MG/5ML 10 ML CUP PO PRN (23:27)
[2019-03-01 06:08] LABS: Glucose,Whole Blood 103 mg/dL (75-99)
[2019-03-01] MEDS: PANTOPRAZOLE 40 MG TABLET PO SCH ×2 (06:09→06:38)
[2019-03-01] MEDS: INSULIN ASPART (NovoLOG) 100 UNIT/ML VIAL SQ SCH ×4 (06:09→12:13)
[2019-03-01] MEDS: CARVEDILOL 6.25 MG TAB PO SCH (06:38)
[2019-03-01] MEDS: SODIUM CHLORIDE 0.9% 1,000 ML IV SCH (06:39)
[2019-03-01 07:05] LABS: Anisocytosis Slight; Basophils % (A) 0 %; Eosinophils # (A) 0.1 k/uL (0-0.7); Eosinophils % (A) 1 %; HCT 32.9 % (39.0-53.0); HGB 10.8 gm/dL (13.0-17.5); Lymphocytes # (A) 4.7 k/uL (1.0-4.8); Lymphocytes % (A) 32 %; MCH 27.9 pg (25.0-35.0); MCHC 32.9 g/dL (31.0-37.0); Monocytes # (A) 0.9 k/uL (0-1.0); Monocytes % (A) 6 %; Neutrophils # (A) 8.4 k/uL (1.3-7.7); Neutrophils % (A) 58 %; Platelet Count 301 k/uL (150-450); RBC 3.87 m/uL (4.30-5.90); RDW 16.9 % (11.5-15.5); WBC 14.5 k/uL (3.8-10.6)
[2019-03-01 07:20] LABS: Albumin 2.9 g/dL (3.5-5.0); Calcium 8.8 mg/dL (8.4-10.2); Total Bilirubin 0.3 mg/dL (0.2-1.3); Total Protein 5.6 g/dL (6.3-8.2)
[2019-03-01] MEDS: IPRATROPIUM-ALBUTEROL 3 ML NEB INHALATION SCH ×2 (08:04→12:40)
[2019-03-01] MEDS: AZITHROMYCIN 500 MG in SODIUM CHLORIDE 0.9% 250 ML IVPB SCH (08:26)
[2019-03-01] MEDS: TORSEMIDE 20 MG TAB PO SCH (08:31)
[2019-03-01] MEDS: ALLOPURINOL 300 MG TAB PO SCH (08:32)
[2019-03-01] MEDS: FAMOTIDINE 20 MG TAB PO SCH (08:32)
[2019-03-01] MEDS: CHOLECALCIFEROL 1,000 UNIT TAB PO SCH (08:32)
[2019-03-01] MEDS: ASCORBIC ACID 500 MG TAB PO SCH (08:32)
[2019-03-01] MEDS: guaiFENesin-Coden 100-10MG/5ML 10 ML CUP PO PRN ×2 (08:34→15:13)
[2019-03-01] MEDS: ASPIRIN 81 MG PO SCH (08:34)
[2019-03-01 08:40] VITALS: RESP 20
[2019-03-01] MEDS: methylPREDNISolone SOD SUCCI 125 MG/2 ML VIAL IV SCH ×2 (09:04)
[2019-03-01] MEDS: HEPARIN SODIUM,PORCINE 5,000 UNIT/ML 1 ML VIAL SQ SCH (09:25)
[2019-03-01 11:42] LABS: Glucose,Whole Blood 157 mg/dL (75-99)
--- NOTE | 2019-03-01 12:42 | P.PN ---
Subjective Progress Note Date: 03/01/19 Principal diagnosis: Acute exacerbation of chronic obstructive pulmonary disease This is a very pleasant 79-year-old gentleman who follows with Dr. Chaudhary as his primary care physician. He has a history of coronary artery disease, severe ischemic cardiomyopathy status post BiV AICD, CVA/TIA, diabetes mellitus, GI bleeds, hypertension, hyperlipidemia, chronic renal failure, chronic hyperkalemia, gout, history of West Nile's disease, history of Lyme's disease, rheumatoid arthritis. The patient also follows with Dr. Isaac in our office for history of interstitial lung disease/rheumatoid lung disease and chronic dyspnea on exertion. He had previously been on methotrexate. He is maintained on 5 mg of prednisone daily. His FVC is 78%. He does have a remote 20-pack-ye ar smoking history. FEV1 value 86% of predicted. Not currently on any bronchodilators in the outpatient setting. He is not oxygen dependent. He was seen last 02/02/2019 and at that time his pulmonary status was fine. He presented to his primary care physician earlier today with complaints of in creasing shortness of breath, cough and congestion. Yellow productive sputum. Dyspnea on exertion. He was admitted directly for suspected pneumonia. He had been on Augmentin a few days prior without much improvement. He is seen today in consultation on the selective care unit. He is currently awake and alert in no acute distress. No oxygen at present. He is maintaining O2 saturations in the upper 90s. He is afebrile. Hemodynamically stable. He does have a loose nonproductive cough. He also has complaints of 2 episodes of diarrhea. C. diff is pending. Chest x-ray pending. Lab work is pending. He has been initiated on ceftriaxone and azithromycin along with IV Solu-Medrol and DuoNeb inhalations. Lungs sounds with few scattered rhonchi, end expiratory wheeze, diminished. On 03/01/2019 patient is seen in follow-up on selective care unit. Doing very well, no shortness of breath, no chest pain, his lung sounds are sounding much improved, essentially clear on today's exam, vital signs are stable, room air pulse ox is 95%, no fever or chills, hemodynamically patient is stable, preliminary Gram stain of the sputum showed many gram-positive cocci, gram- negative bacilli final culture is in progress, but clinically patient has improved, less short of breath and congested, continues on Zithromax and Rocephin, patient is on IV steroids 60 mg every 8 hours, nebulized bronch odilators. No acute events overnight. Objective - Vital Signs Vital signs: Vital Signs Temp 97.9 F 03/01/19 11:25 Pulse 60 03/01/19 11:25 Resp 20 03/01/19 11:25 BP 155/67 03/01/19 11:25 Pulse Ox 95 03/01/19 11:25 Intake & Output 02/28/19 03/01/19 03/01/19 18:59 06:59 18:59 Intake Total 1310 Output Total 450 Balance 860 Weight 85.7 kg Intake: Intake, IV Titration 650 Amount Sodium Chloride 0.9% 1, 600 000 ml @ 50 mls/hr IV . Q20H PATTI Rx#:[id number] cefTRIAXone 1 gm In 50 Sodium Chloride 0.9% 50 ml @ 100 mls/hr IVPB Q24HR PATTI Rx#:[id number] Oral 660 Output: Urine 450 Other: Voiding Method Toilet Toilet Toilet # Voids 1 1 # Bowel Movements 0 0 - Exam GENERAL EXAM: Alert, pleasant, 79-year-old white male comfortable in no apparent distress. HEAD: Normocephalic/atraumatic. EYES: Normal reaction of pupils, equal size. Conjunctiva pink, sclera white. NOSE: Clear with pink turbinates. THROAT: No erythema or exudates. NECK: No masses, no JVD, no thyroid enlargement, no adenopathy. CHEST: No chest wall deformity. Symmetrical expansion. LUNGS: Equal air entry with no crackles, wheeze, rhonchi or dullness. CVS: Regular rate and rhythm, normal S1 and S2, no gallops, no murmurs, no rubs ABDOMEN: Soft, nontender. No hepatosplenomegaly, normal bowel sounds, no guarding or rigidity. EXTREMITIES: No clubbing, no edema, no cyanosis, 2+ pulses and upper and lower extremities. MUSCULOSKELETAL: Muscle strength and tone normal. SPINE: No scoliosis or deformity SKIN: No rashes CENTRAL NERVOUS SYSTEM: Alert and oriented -3. No focal deficits, tone is normal in all 4 extremities. PSYCHIATRIC: Alert and oriented -3. Appropriate affect. Intact judgment and insight. - Labs CBC & Chem 7: 04/07/19 06:19 03/01/19 06:19 Labs: Abnormal Lab Results - Last 24 Hours (Table) 02/28/19 02/28/19 02/28/19 Range/Units 07:03 17:04 20:35 WBC (3.8-10.6) k/uL RBC (4.30-5.90) m/uL Hgb (13.0-17.5) gm/dL Hct (39.0-53.0) % RDW (11.5-15.5) % Neutrophils # (1.3-7.7) k/uL BUN (9-20) mg/dL Creatinine (0.66-1.25) mg/dL Glucose (74-99) mg/dL POC Glucose (mg/dL) 190 H 168 H (75-99) mg/dL Hemoglobin A1c 7.1 H (4.0-6.0) % ALT (21-72) U/L Total Protein (6.3-8.2) g/dL Albumin (3.5-5.0) g/dL 03/01/19 03/01/19 03/01/19 Range/Units 06:07 06:19 06:19 WBC 14.5 H (3.8-10.6) k/uL RBC 3.87 L (4.30-5.90) m/uL Hgb 10.8 L (13.0-17.5) gm/dL Hct 32.9 L (39.0-53.0) % RDW 16.9 H (11.5-15.5) % Neutrophils # 8.4 H (1.3-7.7) k/uL BUN 37 H (9-20) mg/dL Creatinine 1.66 H (0.66-1.25) mg/dL Glucose 102 H (74-99) mg/dL POC Glucose (mg/dL) 103 H (75-99) mg/dL Hemoglobin A1c (4.0-6.0) % ALT 20 L (21-72) U/L Total Protein 5.6 L (6.3-8.2) g/dL Albumin 2.9 L (3.5-5.0) g/dL 03/01/19 Range/Units 11:41 WBC (3.8-10.6) k/uL RBC (4.30-5.90) m/uL Hgb (13.0-17.5) gm/dL Hct (39.0-53.0) % RDW (11.5-15.5) % Neutrophils # (1.3-7.7) k/uL BUN (9-20) mg/dL Creatinine (0.66-1.25) mg/dL Glucose (74-99) mg/dL POC Glucose (mg/dL) 157 H (75-99) mg/dL Hemoglobin A1c (4.0-6.0) % ALT (21-72) U/L Total Protein (6.3-8.2) g/dL Albumin (3.5-5.0) g/dL Microbiology - Last 24 Hours (Table) 02/28/19 08:11 Gram Stain - Preliminary Sputum Sputum Culture - Preliminary Assessment and Plan Plan: Assessment: #1 Acute exacerbation of chronic obstructive pulmonary disease, care by purulent tracheobronchitis versus community-acquired pneumonia. Chest x-ray and labs pending. #2 Acute on chronic dyspnea secondary to above as well as secondary to inters titial lung disease/rheumatoid lung. #3 Rheumatoid arthritis, previously on methotrexate. Currently on prednisone 5 mg daily. #4 Previous history of 85-jysv-brgw smoking. #5 Coronary artery disease. #6 Ischemic cardiomyopathy status post biventricular AICD placement. #7 Diabetes mellitus. #8 Hyperlipidemia. #9 History of Lyme's disease. #10 History of West Nile's disease. #11 Chronic renal failure. #12 History of hyperkalemia. #13 History of CVA/TIA. #14 History of GI bleed. Plan: Patient is doing very well, breathing easier, improved congestion, and dyspnea. Vital signs are stable, no fever or chills, from pulmonary perspective patient is stable for discharge home today on the prednisone taper, short course of oral antibiotics, follow-up with Dr. Simons in the office in 7-10 days I performed a history & physical examination of the patient and discussed their management with my nurse practitioner, Elissa Arboleda. I reviewed the nurse practitioner's note and agree with the documented findings and plan of care. Lung sounds are positive for clear breath sounds. The findings and the impression was discussed with the patient. I attest to the documentation by the nurse practitioner. Time with Patient: Less than 30
[2019-03-01 15:00] VITALS: BP 166/74; PULSE 66; TEMP 98.3
--- NOTE | 2019-03-01 16:08 | P.DS ---
Providers Date of admission: 02/27/19 12:18 Expected date of discharge: 03/01/19 Attending physician: Kenyon Chaudhary Consults: 02/27/19 13:21 Consult Physician Routine Consulting Provider: Siddharth Simons Consult Reason/Comments: bronchitis, COPD Do you want consulting provider notified?: Yes Primary care physician: Kenyon Chaudhary [place] [facility] Course: Diagnosis on discharge: 1. Acute purulant bronchitis. Failed outpatient treatment with Augmentin. Start patient on Rocephin and azithromycin. Check chest x-ray. Consult pulmonary service 2. Acute COPD exacerbation: Start IV Solu-Medrol and bronchodilators. Consult pulmonary service 3. Diabetes mellitus insulin-dependent. Resume home insulin. Add sliding scale coverage scale for steroids. Check A1c 4. Essential hypertension 5. Chronic kidney disease stage III 6. Chronic lymphocytic leukemia 7. Previous history of CVA 8. Rheumatoid arthritis on chronic prednisone 9. Hyperlipidemia 10. History of ischemic cardiomyopathy status post AICD 11. Diarrhea check stool for C. diff Hospital course: This is a 79-year-old male with a known past medical history of ischemic cardiomyopathy status post AICD, CVA, diabetes mellitus, hypertension, rheumatoid arthritis, hyperlipidemia, chronic kidney disease, COPD and CLL. Patient is a direct admit from Dr. Chaudhary's office with complaints of a productive cough with brownish to yellowish sputum for the past 3 days. Patient reports that he had taken Augmentin in the outpatient setting for 2 days with no improvement. In fact he felt that his symptoms were worsening. He was admitted to the hospital for COPD exacerbation with bronchitis and possible pneumonia. He'll be placed on IV Rocephin and azithromycin and IV Solu-Medrol. His political research scientist is Dr. James and. Ulnar service will be placed on consult. Patient denies any fever, chills, sweats, nausea or vomiting. Does report 2 episodes of diarrhea. Stool for C. diff was ordered. Denies any burning with urination. On 02/28/2019 patient was seen and examined on the telemetry floor he is alert and oriented 3 in no apparent distress vital exam is stable he is still complaining of cough he is complaining of shortness of breath with activity otherwise there is no complaints there is no fever or chills no headache or dizziness no chest pain no shortness of breath no cough no nausea or vomiting no abdominal pain no diarrhea and no urinary symptoms. On 03/01/2019 patient was seen and examined on the telemetry floor he is doing better he is having less cough and less shortness of breath, patient feeling ready to go home, he will be switched to oral antibiotic and oral steroid and will be discharged home today he has a course of Augmentin and a course of prednisone at home he was told to resume taking these medications, he was given a prescription for Robitussin with codeine and a prescription for Ventolin inhaler, he will be followed in our office within the next 5 days Plan - Discharge Summary Discharge Rx Participant: No New Discharge Prescriptions: New Zolpidem [Ambien] 5 mg PO HS PRN tab PRN Reason: for sleep Amoxic-Pot Clav 500-125 mg [Augmentin 500-125 mg] 1 tab PO Q12HR 8 Days #16 tab Albuterol Sulfate [Proventil Hfa] 2 puff INHALATION Q6HR PRN 30 Days #1 inhaler PRN Reason: Dyspnea guaiFENesin-Coden 100-10MG/5ML [Robitussin AC] 10 ml PO Q8H PRN ml PRN Reason: Cough Continue Allopurinol 300 mg PO DAILY Cholecalciferol [Vitamin D3] 1,000 unit PO DAILY Ascorbic Acid [Vitamin C] 1,000 mg PO DAILY Aspirin EC [Ecotrin Low Dose] 81 mg PO DAILY #0 Insulin Aspart [NovoLOG Flexpen] 10 unit SQ AC-TID Insulin Detemir [Levemir Flextouch] 30 unit SQ HS Torsemide [Demadex] 10 mg PO DAILY Omeprazole [PriLOSEC] 20 mg PO DAILY Carvedilol [Coreg] 6.25 mg PO DAILY Insulin Aspart [NovoLOG Flexpen] See Protocol SQ AC-TID Pravastatin Sodium [Pravachol] 40 mg PO HS Discontinued predniSONE 5 mg PO DAILY Discharge Medication List Allopurinol 300 mg PO DAILY 05/31/16 [History] Ascorbic Acid [Vitamin C] 1,000 mg PO DAILY 09/23/17 [History] Cholecalciferol [Vitamin D3] 1,000 unit PO DAILY 09/23/17 [History] Aspirin EC [Ecotrin Low Dose] 81 mg PO DAILY #0 05/09/18 [Rx] Carvedilol [Coreg] 6.25 mg PO DAILY 11/24/18 [History] Insulin Aspart [NovoLOG Flexpen] 10 unit SQ AC-TID 11/24/18 [History] Insulin Aspart [NovoLOG Flexpen] See Protocol SQ AC-TID 11/24/18 [History] Insulin Detemir [Levemir Flextouch] 30 unit SQ HS 11/24/18 [History] Omeprazole [PriLOSEC] 20 mg PO DAILY 11/24/18 [History] Torsemide [Demadex] 10 mg PO DAILY 11/24/18 [History] Pravastatin Sodium [Pravachol] 40 mg PO HS 02/27/19 [History] Albuterol Sulfate [Proventil Hfa] 2 puff INHALATION Q6HR PRN 30 Days #1 inhaler 03/01/19 [Rx] Amoxic-Pot Clav 500-125 mg [Augmentin 500-125 mg] 1 tab PO Q12HR 8 Days #16 tab 03/01/19 [Rx] Zolpidem [Ambien] 5 mg PO HS PRN tab 03/01/19 [Rx] guaiFENesin-Coden 100-10MG/5ML [Robitussin AC] 10 ml PO Q8H PRN ml 03/01/19 [Rx] Follow up Appointment(s)/Referral(s): Siddharth Simons DO [Doctor of Osteopathic Medicine] - 1 Week Kenyon Chaudhary MD [Primary Care Provider] - 1 Week Patient Instructions/Handouts: Acute Bronchitis (GEN), COPD (Chronic Obstructive Pulmonary Disease) (DC) Discharge Disposition: HOME SELF-CARE
[2019-03-02] MEDS ORDERED: predniSONE 10 MG TAB PO SCH (09:00)
== END 2019-03-01 15:15 | disposition home or self-care (01) | DRG 191 ==
LOC: 3SCARD 12:18
PROVIDERS: ADMIT Internal Medicine; ATTEND Internal Medicine
DX: J44.1 Chronic obstructive pulmonary disease with (acute) exacerbation (principal); J84.9 Interstitial pulmonary disease, unspecified; C91.10 Chronic lymphocytic leukemia of B-cell type not having achieved remission; J44.0 Chronic obstructive pulmonary disease with (acute) lower respiratory infection; J20.9 Acute bronchitis, unspecified; M05.10 Rheumatoid lung disease with rheumatoid arthritis of unspecified site; N18.3 Chronic kidney disease, stage 3 (moderate); E11.22 Type 2 diabetes mellitus with diabetic chronic kidney disease; E78.5 Hyperlipidemia, unspecified; I12.9 Hypertensive chronic kidney disease with stage 1 through stage 4 chronic kidney disease, or unspecified chronic kidney disease; I25.10 Atherosclerotic heart disease of native coronary artery without angina pectoris; I25.5 Ischemic cardiomyopathy; Z86.73 Personal history of transient ischemic attack (TIA), and cerebral infarction without residual deficits; Z79.4 Long term (current) use of insulin; Z79.52 Long term (current) use of systemic steroids; Z79.82 Long term (current) use of aspirin; Z79.899 Other long term (current) drug therapy; Z87.01 Personal history of pneumonia (recurrent); Z87.891 Personal history of nicotine dependence; Z95.810 Presence of automatic (implantable) cardiac defibrillator; Z88.8 Allergy status to other drugs, medicaments and biological substances; Z88.1 Allergy status to other antibiotic agents; Z91.041 Radiographic dye allergy status; Z88.0 Allergy status to penicillin; Z91.013 Allergy to seafood; Z87.19 Personal history of other diseases of the digestive system; R19.7 Diarrhea, unspecified; M10.9 Gout, unspecified; Z86.19 Personal history of other infectious and parasitic diseases
CPT/HCPCS: 71046; 80053; 83036; 85025; 87070; 87205; 87502; 94640

== ENCOUNTER → 2019-05-21 | Outpatient (CLI) | payer MEDICARE, BC ==
--- NOTE | 2019-05-22 08:09 | CT ---
EXAMINATION TYPE: CT chest wo con DATE OF EXAM: 05/21/2019 COMPARISON: 10/13/2018 HISTORY: Cough Unenhanced CT of the chest was performed with lung and mediastinal window settings submitted. The la ck of contrast limits evaluation of the vascular, mediastinal and parenchymal structures including th e upper abdomen. LUNGS: Basilar groundglass infiltrates are noted which may reflect acute inflammatory process. No cassidy dence for focal consolidation.. No atelectasis. No pulmonary nodule or mass is detected. No pleural effusion. No CT evidence of interstitial lung disease. MEDIASTINUM/RADHA: Thoracic aorta measures 4.5 cm AP dimension. There is evidence of cardiomegaly. No evidence for mediastinal mass. No lymph nodes greater than 1cm. UPPER ABDOMEN: No significant abnormality is seen. OTHER: No significant other abnormality. IMPRESSION: 1. Basilar groundglass infiltrates are noted which may reflect acute inflammatory process. No eviden ce for focal consolidation.
== END | disposition home or self-care (01) ==
LOC: RADCTMAIN 15:26
PROVIDERS: ATTEND Internal Medicine
DX: R06.02 Shortness of breath (principal); R05 Cough; R91.8 Other nonspecific abnormal finding of lung field
CPT/HCPCS: 36415; 71250; 82565; 84520

== ENCOUNTER 2019-07-09 23:29 | Emergency (ER) | payer MEDICARE, BC ==
[2019-07-09 23:52] VITALS: BP 160/60; PULSE 69; RESP 20; TEMP 97.7
[2019-07-10] MEDS ORDERED: ACET/COD 300 MG/30 MG STARTER PACK 6 TAB BTL PO STA (00:09)
--- NOTE | 2019-07-10 00:10 | ED ---
General Adult HPI - General Chief complaint: Dental/Oral Stated complaint: Can't remove Dentures Time Seen by Provider: 07/10/19 00:02 Source: patient, RN notes reviewed Mode of arrival: ambulatory Limitations: no limitations - History of Present Illness Initial comments: Patient is a pleasant 79-year-old male presenting to the emergency department after not being able to take his dentures out. Patient states she had all of his teeth removed yesterday. Patient was told to leave his dentures in yesterday and then remove them tonight. Patient states he is not able to move them tonight and it does cause discomfort. Patient feels her may be a little bit of swelling. No fevers. Discomfort is only mild when he is not trying to remove the dentures. No history of similar symptoms previously. - Related Data Home Medications Medication Instructions Recorded Confirmed Allopurinol 300 mg PO DAILY 05/31/16 02/27/19 Ascorbic Acid [Vitamin C] 1,000 mg PO DAILY 09/23/17 02/27/19 Cholecalciferol [Vitamin D3 (25 1,000 unit PO DAILY 09/23/17 02/27/19 Mcg = 1000 Iu)] Carvedilol [Coreg] 6.25 mg PO DAILY 11/24/18 02/27/19 Insulin Aspart [NovoLOG Flexpen] 10 unit SQ AC-TID 11/24/18 02/27/19 Insulin Aspart [NovoLOG Flexpen] See Protocol SQ AC-TID 11/24/18 02/27/19 Insulin Detemir [Levemir Flextouch] 30 unit SQ HS 11/24/18 02/27/19 Omeprazole [PriLOSEC] 20 mg PO DAILY 11/24/18 02/27/19 Torsemide [Demadex] 10 mg PO DAILY 11/24/18 02/27/19 Pravastatin Sodium [Pravachol] 40 mg PO HS 02/27/19 02/27/19 Previous Rx's Medication Instructions Recorded Aspirin EC [Ecotrin Low Dose] 81 mg PO DAILY #0 05/09/18 Albuterol Sulfate [Proventil Hfa] 2 puff INHALATION Q6HR PRN 30 Days 03/01/19 #1 inhaler Amoxic-Pot Clav 500-125 mg 1 tab PO Q12HR 8 Days #16 tab 03/01/19 [Augmentin 500-125 mg] Zolpidem [Ambien] 5 mg PO HS PRN tab 03/01/19 guaiFENesin-Coden 100-10MG/5ML 10 ml PO Q8H PRN ml 03/01/19 [Robitussin AC] Allergies Allergy/AdvReac Type Severity Reaction Status Date / Time amlodipine Allergy Swelling Verified 07/09/19 23:52 doxycycline Allergy Anaphylaxis Verified 07/09/19 23:52 Iodinated Contrast- Oral and Allergy Anaphylaxis Verified 07/09/19 23:52 IV Dye iodine Allergy Rash/Hives Verified 07/09/19 23:52 metronidazole [From Flagyl] Allergy Rash/Hives Verified 07/09/19 23:52 shrimp Allergy Rash/Hives Verified 07/09/19 23:52 acarbose AdvReac Abdominal Verified 07/09/19 23:52 Pain amoxicillin trihydrate AdvReac Nausea & Verified 07/09/19 23:52 [From Augmentin] Vomiting potassium clavulanate AdvReac Nausea & Verified 07/09/19 23:52 [From Augmentin] Vomiting Review of Systems ROS Statement: Those systems with pertinent positive or pertinent negative responses have been documented in the HPI. ROS Other: All systems not noted in ROS Statement are negative. Constitutional: Denies: fever Eyes: Denies: eye pain ENT: Reports: as per HPI. Denies: ear pain Respiratory: Denies: cough Cardiovascular: Denies: chest pain Endocrine: Denies: fatigue Gastrointestinal: Denies: abdominal pain Genitourinary: Denies: dysuria Musculoskeletal: Denies: back pain Skin: Denies: rash Neurological: Denies: weakness Past Medical History Past Medical History: Coronary Artery Disease (CAD), CVA/TIA, Diabetes Mellitus, GI Bleed, Hyperlipidemia, Hypertension, Musculoskeletal Disorder, Renal Disease, Rheumatoid Arthritis (RA), Thyroid Disorder Additional Past Medical History / Comment(s): Interstitial lung disease/rheumatoid lung, chronic renal failure, chronic hyperkalemia, gout, 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 History of Any Multi-Drug Resistant Organisms: None Reported Past Surgical History: AICD, Back Surgery, Heart Catheterization, Pacemaker, Tonsillectomy Additional Past Surgical History / Comment(s): Biventricular AICD placement, back surgery 5, cardiac catheterization, tonsillectomy; colonoscopy Past Anesthesia/Blood Transfusion Reactions: No Reported Reaction Additional Past Anesthesia/Blood Transfusion Reaction / Comment(s): blood transfusion-no reaction Type of Cardiac Device: Permanent Pacemaker, AICD Device Placement Date:: 2016 Past Psychological History: No Psychological Hx Reported Smoking Status: Former smoker Past Alcohol Use History: Occasional Past Drug Use History: None Reported - Past Family History Mother Family Medical History: No Reported History Father History Unknown: Yes Family Medical History: No Reported History Additional Family Medical History / Comment(s): Father was healthy and lived to be 88yrs old. General Exam Limitations: no limitations General appearance: alert, in no apparent distress Head exam: Present: atraumatic Eye exam: Present: normal appearance ENT exam: Present: normal oropharynx, other (Upper gums are adentalus. Patient does have dentures in the lower gumline. Patient has discomfort with mild attempt to remove dentures. No surrounding erythema or swelling visualized with complete mouth exam.) Neck exam: Present: normal inspection Respiratory exam: Present: normal lung sounds bilaterally Cardiovascular Exam: Present: regular rate, normal rhythm Neurological exam: Present: alert Psychiatric exam: Present: normal affect, normal mood Skin exam: Present: normal color Course Vital Signs 07/09/19 23:48 Temperature 97.7 F Pulse Rate 69 Respiratory 20 Rate Blood Pressure 160/60 O2 Sat by Pulse 98 Oximetry Medical Decision Making - Medical Decision Making Patient limits attempt to remove dentures with mild pressure. Options at this time include conscious sedation to remove dentures or pain medication and have patient follow-up tomorrow with his dentist. Patient does agree to the second option which does appear more realistic. Patient will be given Tylenol with codeine starter. Patient is informed to take a dose tonight and to take another dose before seen his dentist in the morning as long as he is not driving. Disposition Clinical Impression: Dentalgia Disposition: HOME SELF-CARE Condition: Stable Instructions (If sedation given, give patient instructions): Toothache (ED) Additional Instructions: Please follow-up in the morning with your dentist. If you have a mixer driver you may take an additional dose of Tylenol with codeine in the morning prior to seeing her dentist. Return for increased pain, swelling, fevers, redness, worsening symptoms or other concerns. Is patient prescribed a controlled substance at d/c from ED?: No Referrals: Kenyon Chaudhary MD [Primary Care Provider] - 1-2 days Time of Disposition: 00:10
== END 2019-07-10 00:21 | disposition home or self-care (01) ==
LOC: EC 23:29
DX: K08.89 Other specified disorders of teeth and supporting structures (principal); I25.10 Atherosclerotic heart disease of native coronary artery without angina pectoris; I12.9 Hypertensive chronic kidney disease with stage 1 through stage 4 chronic kidney disease, or unspecified chronic kidney disease; E11.22 Type 2 diabetes mellitus with diabetic chronic kidney disease; N18.9 Chronic kidney disease, unspecified; E78.5 Hyperlipidemia, unspecified; E07.9 Disorder of thyroid, unspecified; Z79.02 Long term (current) use of antithrombotics/antiplatelets; Z79.4 Long term (current) use of insulin; Z79.899 Other long term (current) drug therapy; Z88.8 Allergy status to other drugs, medicaments and biological substances; Z88.1 Allergy status to other antibiotic agents; Z91.041 Radiographic dye allergy status; Z91.048 Other nonmedicinal substance allergy status; Z91.018 Allergy to other foods; Z88.0 Allergy status to penicillin; Z95.0 Presence of cardiac pacemaker; Z95.5 Presence of coronary angioplasty implant and graft; Z87.891 Personal history of nicotine dependence; Z86.73 Personal history of transient ischemic attack (TIA), and cerebral infarction without residual deficits
CPT/HCPCS: 99282

== ENCOUNTER → 2019-08-12 | Outpatient (CLI) | payer MEDICARE, BC | END | disposition home or self-care (01) | LOC: LABPAT 16:00 | PROVIDERS: ATTEND Orthopaedic Surgery | DX: Z01.812 Encounter for preprocedural laboratory examination (principal) | CPT/HCPCS: 87070 ==

== ENCOUNTER → 2019-10-02 | Outpatient (CLI) | payer MEDICARE, BC ==
--- NOTE | 2019-10-02 11:00 | XR ---
EXAMINATION TYPE: XR chest 2V DATE OF EXAM: 10/02/2019 COMPARISON: NONE TECHNIQUE: PA and lateral views submitted. HISTORY: Heavy chest, SOB FINDINGS: The lungs are clear and there is no pneumothorax, pleural effusion, or focal pneumonia. Heart is pr ominent cardiac device. Arthropathy of the shoulders. Biapical pleural thickening. No overt failure. Hypertrophic and degenerative change of the spine. IMPRESSION: 1. No acute process.
== END | disposition home or self-care (01) ==
LOC: RADXRMAIN 10:29
PROVIDERS: ATTEND Internal Medicine
DX: R05 Cough (principal)
CPT/HCPCS: 71046

== ENCOUNTER → 2019-10-07 | Outpatient (CLI) | payer MEDICARE, BC ==
[2019-10-07 11:45] VITALS: BP 152/58; PULSE 65; RESP 22
--- NOTE | 2019-10-07 12:29 | P.PAINCN ---
History of Present Illness - Reason for Consult Consult date: 10/07/19 - History of Present Illness This is the initial consultation visit for this 79 years old male, with a chronic history of severe low back pain started more than 30 years ago, after falling accident, and from that time on patient was dealing with back pain issues, patient had 6 back surgery, and the last one was more than a year ago, patient continued to have severe low back pain, the pain is constant and increased with any activity,, currently his pain mostly axial is not radiated to the lower extremity, he denies any fever or night sweats. Denies any change in the bowel movement or urination, he is able to ambulate on his own he does not use any walker he does not use a cane, he denies any numbness or tingling sensation in the lower extremities Past Medical History Past Medical History: Coronary Artery Disease (CAD), CVA/TIA, Diabetes Mellitus, GI Bleed, Hyperlipidemia, Hypertension, Musculoskeletal Disorder, Renal Disease, Rheumatoid Arthritis (RA), Thyroid Disorder Additional Past Medical History / Comment(s): current tx for bronchitis,Interstitial lung disease/rheumatoid lung, chronic renal failure, chronic hyperkalemia, gout, 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 History of Any Multi-Drug Resistant Organisms: None Reported Past Surgical History: AICD, Back Surgery, Heart Catheterization, Pacemaker, Tonsillectomy Additional Past Surgical History / Comment(s): Biventricular AICD placement, back surgery 5, cardiac catheterization, colonoscopy Past Anesthesia/Blood Transfusion Reactions: No Reported Reaction Additional Past Anesthesia/Blood Transfusion Reaction / Comm: blood transfusion- no reaction Type of Cardiac Device: Permanent Pacemaker, AICD Device Placement Date:: 2016 Smoking Status: Former smoker - Past Family History Mother Family Medical History: No Reported History Father History Unknown: Yes Family Medical History: No Reported History Additional Family Medical History / Comment(s): Father was healthy and lived to be 88yrs old. Medications and Allergies Home Medications Medication Instructions Recorded Confirmed Type Allopurinol 300 mg PO DAILY 05/31/16 10/07/19 History Cholecalciferol [Vitamin D3 (25 1,000 unit PO DAILY 09/23/17 10/07/19 History Mcg = 1000 Iu)] Aspirin EC [Ecotrin Low Dose] 81 mg PO DAILY #0 05/09/18 10/07/19 Rx Carvedilol [Coreg] 6.25 mg PO DAILY 11/24/18 10/07/19 History Insulin Aspart [NovoLOG Flexpen] 10 unit SQ TID-W/MEALS 11/24/18 10/07/19 History Insulin Aspart [NovoLOG Flexpen] See Protocol SQ AC-TID 11/24/18 10/07/19 History Insulin Detemir [Levemir Flextouch] 36 unit SQ HS 11/24/18 10/07/19 History Omeprazole [PriLOSEC] 20 mg PO DAILY 11/24/18 10/07/19 History Torsemide [Demadex] 10 mg PO DAILY 11/24/18 10/07/19 History Pravastatin Sodium [Pravachol] 40 mg PO HS 02/27/19 10/07/19 History Albuterol Sulfate [Proventil Hfa] 2 puff INHALATION Q6HR PRN 30 Days 03/01/19 10/07/19 Rx #1 inhaler Zolpidem [Ambien] 5 mg PO HS PRN tab 03/01/19 10/07/19 Rx guaiFENesin-Coden 100-10MG/5ML 10 ml PO Q8H PRN ml 03/01/19 10/07/19 Rx [Robitussin AC] Cefuroxime [Ceftin] 500 mg PO DAILY 10/06/19 10/07/19 History Levofloxacin 500 mg PO DAILY 10/06/19 10/07/19 History predniSONE See Taper PO DIRECTED 10/06/19 10/07/19 History Allergies Allergy/AdvReac Type Severity Reaction Status Date / Time amlodipine Allergy Swelling Verified 10/06/19 15:20 doxycycline Allergy Anaphylaxis Verified 10/06/19 15:20 Iodinated Contrast Media Allergy Anaphylaxis Verified 10/06/19 15:20 [Iodinated Contrast- Oral and IV Dye] iodine Allergy Rash/Hives Verified 10/06/19 15:20 metronidazole [From Flagyl] Allergy Rash/Hives Verified 10/06/19 15:20 shrimp Allergy Rash/Hives Verified 10/06/19 15:20 acarbose AdvReac Abdominal Verified 10/06/19 15:20 Pain amoxicillin trihydrate AdvReac Nausea & Verified 10/06/19 15:20 [From Augmentin] Vomiting potassium clavulanate AdvReac Nausea & Verified 10/06/19 15:20 [From Augmentin] Vomiting Physical Exam Vitals: Vital Signs Pulse Resp BP Pulse Ox 10/07/19 11:37 65 22 152/58 97 Intake and Output 10/06/19 10/07/19 10/07/19 22:59 06:59 14:59 Other: Weight 86.183 kg Physical Examinations : -Constitutiona : Cooperative , not in acute distress . -HEENT : nech : supple , no Lymphadenopathy , normal thyroid size . : eyes : no ptosis , no icterus, no photophobia . : ENT : normal of hearing , normal oropharynx , no Thrush . - Respiratory : Chest clear to auscultations Bilaterally , no wheezing , no Rhonchi . - Cardiovascula : regular rate and rhythem , S1 , S2 , no S3 , no S4. - Gastrointestina : abdomen soft no tenderness , bowel sounds , no organomegally . - Genitourinary : Defferred . - neurologic : Cranial nerve II to XII intact , no focal neurological deffecit . -psychatric : alert , oriented X 3 , appropriate affect , intact judgment and insight . -Lymphatic : no Lymphadenopathy . - musculoskeltal : Lumber spine moter stegnth lower extremities ,thigh and legs 4-5/5 Right side , 4- 5/5 Left side deep tendon reflexes : normal Knee Jerk , normal ankle Jerk lumber facet Loading Test =positive Right , posiutive Left Range of motion of the lumbar spine Flexion 30 degrees, extension 10 degrees strait leg raising test = positive at 60 degree on the right side and is negative on the left side Fabere test= positive Right , and positive LT . Sever tenderness over the Sacroiliac joint on the Left sides Gaenslen test= negative right ,and positive left . Seated flexion test= negative right ,and positive Left . Results Labs: MRI of the lumbar spine done at [facility] at 09/14/2019 multilevel lumbar degenerative disc disease and moderate central canal stenosis and hypertrophic facet joint arthropathy at L3 4 L4 5 and L5-S1 and briefness history of laminectomy and bilateral neuroforaminal narrowing at L3-4 ,L4 5 and L5-S1 Assessment and Plan Plan: Assessment and plan= 1-second back surgery syndrome lumbar area. 2-lumbar spondylosis with lumbar facet arthropathy. 3-left sacroiliitis. 4-lumbar spinal stenosis. Patient will be good candidate to have left-sided sacroiliac joint steroid injection, and diagnostic medial branch block lumbar area at L2, L3, L4, L5 Target the facet joint at L3 4, L4 5 , L5-S1 . Procedure risk and benefits and alternatives discussed with the patient and his and they agreed with proceeding Time with Patient: Greater than 30 PQRS Measure Charge Sheet Measure #130: Documentation of Current Meds in Medical Chart: Patient's medications documented in chart Measure #226: Tobacco Use: Screen & Cessation Intervention: Pt not a tobacco user Measure #111: Pneumonia Vaccination: Pneumococcal vaccine administered or previously received Measure #47: Advance Care Plan: Advance care planning discussed & documented, pt chose/unable to give Measure #412: Opioid Treatment Agreement: No documentation of signed opioid treatment agreement Measure #408: Opioid Therapy Follow-up Evaluation: Patient had NO f/u eval minimum every 3 months during opioid therapy Measure #317: Preventitive Care & Scrn High Bld Press & F/U: Pre-hypertensive or hypertensive BP documented, pt will f/u with PCP Measure #128: Body Mass Index (BMI) Screening & Follow-up: BMI documented ABOVE normal parameters - f/u documented Measure #131: Pain Assessment & Follow-up: Pain positive & plan documented, Follow-up scheduled Measure #431: Unhealthy Alcohol Use Preventative Care & Scrn: Patient not identified as an unhealthy alcohol user PQRS Narrative: Smoking Status Former smoker Blood Pressure 152/58 Pain Intensity [Generalized] 8 Scale Used Numeric (1 - 10) Hx Alcohol Use (MH) Yes Home Medications: Ambulatory Orders Allopurinol 300 mg PO DAILY 05/31/16 Cholecalciferol [Vitamin D3 (25 Mcg = 1000 Iu)] 1,000 unit PO DAILY 09/23/17 Aspirin EC [Ecotrin Low Dose] 81 mg PO DAILY #0 05/09/18 Carvedilol [Coreg] 6.25 mg PO DAILY 11/24/18 Insulin Aspart [NovoLOG Flexpen] 10 unit SQ TID-W/MEALS 11/24/18 Insulin Aspart [NovoLOG Flexpen] See Protocol SQ AC-TID 11/24/18 Insulin Detemir [Levemir Flextouch] 36 unit SQ HS 11/24/18 Omeprazole [PriLOSEC] 20 mg PO DAILY 11/24/18 Torsemide [Demadex] 10 mg PO DAILY 11/24/18 Pravastatin Sodium [Pravachol] 40 mg PO HS 02/27/19 Albuterol Sulfate [Proventil Hfa] 2 puff INHALATION Q6HR PRN 30 Days #1 inhaler 03/01/19 Zolpidem [Ambien] 5 mg PO HS PRN tab 03/01/19 guaiFENesin-Coden 100-10MG/5ML [Robitussin AC] 10 ml PO Q8H PRN ml 03/01/19 Cefuroxime [Ceftin] 500 mg PO DAILY 10/06/19 Levofloxacin 500 mg PO DAILY 10/06/19 predniSONE See Taper PO DIRECTED 10/06/19
== END | disposition home or self-care (01) ==
LOC: PNWHC3 11:20
PROVIDERS: ATTEND Specialist
DX: M96.1 Postlaminectomy syndrome, not elsewhere classified (principal); M48.061 Spinal stenosis, lumbar region without neurogenic claudication; M47.816 Spondylosis without myelopathy or radiculopathy, lumbar region; M46.96 Unspecified inflammatory spondylopathy, lumbar region; M46.1 Sacroiliitis, not elsewhere classified; E11.9 Type 2 diabetes mellitus without complications; E78.5 Hyperlipidemia, unspecified; I10 Essential (primary) hypertension; E07.9 Disorder of thyroid, unspecified; M06.9 Rheumatoid arthritis, unspecified; N28.9 Disorder of kidney and ureter, unspecified; Z87.891 Personal history of nicotine dependence; Z95.810 Presence of automatic (implantable) cardiac defibrillator; Z79.82 Long term (current) use of aspirin; Z79.891 Long term (current) use of opiate analgesic; Z79.899 Other long term (current) drug therapy; Z79.1 Long term (current) use of non-steroidal anti-inflammatories (NSAID); Z88.1 Allergy status to other antibiotic agents; Z88.8 Allergy status to other drugs, medicaments and biological substances; Z91.041 Radiographic dye allergy status; Z91.013 Allergy to seafood; Z79.4 Long term (current) use of insulin
CPT/HCPCS: 99211

== ENCOUNTER 2019-10-12 06:54 | Day surgery (SDC) | payer MEDICARE, BC ==
[2019-10-09 11:11] VITALS: BMI 26.8
[2019-10-12 07:47] VITALS: TEMP 97.9
[2019-10-12 07:47] LABS: Glucose,Whole Blood 159 mg/dL (75-99)
[2019-10-12] MEDS ORDERED: LACTATED RINGERS 1,000 ML IV ONE (07:47)
[2019-10-12] MEDS ORDERED: LIDOCAINE 1% 20 ML VIAL (10MG/ML) FOR IV START INTRADERMA ONE (07:48)
--- NOTE | 2019-10-12 08:50 | P.PCN ---
Date of Procedure: 10/12/19 Procedure(s) Performed: Procedure canceled Patient was placed prone on the table for his procedure. When he was placed prone on the table as pressure was 216/98 even after sedation. He is currently on a steroid taper now. Thus given his blood pressures over 200, his current use of oral steroids, and the potential to increase his blood pressure to the use of steroid in the form of Kenalog, the procedure was cancelled. Further instruction will be discussed with his .
[2019-10-12] MEDS ORDERED: IV FLUID CONTINUATION 1,000 ML IV ONE (08:52)
[2019-10-12 09:11] VITALS: RESP 16
[2019-10-12 09:33] VITALS: BP 143/82; PULSE 74
--- NOTE | 2019-10-12 12:16 | FL ---
Fluoroscopy HISTORY: Pain 1 seconds fluoroscopy time supplied to the referring clinician. 1 intraoperative C-arm images docume nt the procedure. See dictated report from anesthesia.
== END 2019-10-12 10:12 | disposition home or self-care (01) ==
LOC: ORPAIN 06:54
PROVIDERS: ATTEND Student in an Organized Health Care Education/Training Program
DX: G89.29 Other chronic pain (principal); Z53.8 Procedure and treatment not carried out for other reasons; M47.896 Other spondylosis, lumbar region; M46.1 Sacroiliitis, not elsewhere classified; M48.061 Spinal stenosis, lumbar region without neurogenic claudication; M51.36 Other intervertebral disc degeneration, lumbar region; J40 Bronchitis, not specified as acute or chronic; I25.10 Atherosclerotic heart disease of native coronary artery without angina pectoris; E78.5 Hyperlipidemia, unspecified; M06.9 Rheumatoid arthritis, unspecified; E07.9 Disorder of thyroid, unspecified; J84.9 Interstitial pulmonary disease, unspecified; I12.9 Hypertensive chronic kidney disease with stage 1 through stage 4 chronic kidney disease, or unspecified chronic kidney disease; E11.22 Type 2 diabetes mellitus with diabetic chronic kidney disease; N18.9 Chronic kidney disease, unspecified; E87.5 Hyperkalemia; M19.90 Unspecified osteoarthritis, unspecified site; I25.9 Chronic ischemic heart disease, unspecified; K44.9 Diaphragmatic hernia without obstruction or gangrene; Z87.01 Personal history of pneumonia (recurrent); Z98.890 Other specified postprocedural states; Z86.73 Personal history of transient ischemic attack (TIA), and cerebral infarction without residual deficits; Z87.19 Personal history of other diseases of the digestive system; Z87.39 Personal history of other diseases of the musculoskeletal system and connective tissue; Z95.810 Presence of automatic (implantable) cardiac defibrillator; Z86.19 Personal history of other infectious and parasitic diseases; Z87.891 Personal history of nicotine dependence; Z79.899 Other long term (current) drug therapy; Z79.82 Long term (current) use of aspirin; Z79.4 Long term (current) use of insulin; Z88.8 Allergy status to other drugs, medicaments and biological substances; Z91.041 Radiographic dye allergy status; Z91.048 Other nonmedicinal substance allergy status; Z88.1 Allergy status to other antibiotic agents; Z91.013 Allergy to seafood; Z88.0 Allergy status to penicillin
CPT/HCPCS: J2250; J3010; 27096

== ENCOUNTER 2019-10-27 07:24 | Day surgery (SDC) | payer MEDICARE, BC ==
[2019-10-21 14:12] VITALS: BMI 27.1
[~2019-10-27 07:24] MED LIST changes: -LIDOCAINE 1% 20 ML VIAL (10MG/ML) FOR IV START INTRADERMA PRN; -MIDAZOLAM 2 MG/2 ML VIAL IV PRN
[2019-10-27 08:04] VITALS: RESP 18; TEMP 97.2
[2019-10-27] MEDS ORDERED: LIDOCAINE 1% 20 ML VIAL (10MG/ML) FOR IV START INTRADERMA ONE (08:04)
[2019-10-27 08:06] LABS: Glucose,Whole Blood 135 mg/dL (75-99)
--- NOTE | 2019-10-27 09:15 | P.PCN ---
Date of Procedure: 10/27/19 Procedure(s) Performed: PREOPERATIVE DIAGNOSIS : 1- Lumbar spondylosis with Facet Arthropathy without myelopathy . 2-left sacroiliitis. 3-Failed back surgery syndrome lumbar area. POSTOPERATIVE DIAGNOSIS: Same as preoperative diagnosis PROCEDURE: 1-Diagnostic bilateral L2 ,L3 , L4 , and L5 medial branch block under fluoroscopy guidance(fluoroscopy images available in the radiology Department ) ( To target the facet joint between L3-4 , L4-5 , and L5-S1 ). 2-left sacroiliac joint steroid injections under fluoroscopy guidance ANESTHESIA: Local with Ropivacain 0.5 % 6 ml , moderate sedation with intravenous Versed 1 mg and Fentanyl 50 mcg. EBL: Minimal COMPLICATION: None. IV FLUIDS: 100 mL of normal saline. PROCEDURE INDICATION: Chronic low back pain secondary to Facet arthropathy and left sacroiliitis unresponsive to conservative treatment. PROCEDURE DESCRIPTION: the patient was seen and identified in the preop holding area , risks and benefits and possible complications of the procedure and alternative were discussed with the patient, and the patient agreed to proceed with the procedure and signed the consent IV was started and vital signs monitored during the procedure and fluoroscopy was used to maximize the benefit and accuracy of the needle placement, and sedation was given to decrease patient anxiety, patient was taken to the procedure room and placed in prone position vital signs monitored in the back prepped with chlorhexidine X3 then under strict sterile technique using a right oblique fluoroscopy ,the junction of the transverse process and the superior articulating process of the right L2 ,L3 , L4 , and L5 vertebra which corresponding to the fluoroscopy image of the eye of the Papito dog on the block side for the medial branches and subsequently , after local infiltration of skin and subcu tissuies with Ropivacaine 0.5 % , one mL at each level ,then 22-gauge Quincke-type needles , 4 needle was used , each one of them placed at the junction of the base of the transverse process and the superior articular process at the appropriate level, and the needle was advanced until the periosteum contacted, needle placement confirmed with AP oblique and lateral view and after appropriate needle placement confirmed, and after negative aspiration for heme and CSF and there was no paresthesia 2 mL of Ropivacaine 0.5% mixed with 10 mg Depo-Medrol , then half mL injected at each level after negative aspiration the needle subsequently removed and the same procedure repeated for the left side at left side at L2 , L3 , L4 and L5 levels. Then after that the left sacroiliac joint injection done under sterile technique, 22-gauge Quincke type needle placed in the left sacroiliac joint under fluoroscopy guidance, we placement confirmed with AP and lateral view, after negative aspiration ropivacaine 0.5% for mL mixed with 20 mg of Depo- Medrol injected in the left sacroiliac joint after negative aspiration, At the end of the procedure and the needles removed and a bandage applied after the sk in was cleaned the cleaning solution patient taken to recovery room in stable condition and monitors in the recovery room for 20-30 minutes and discharged home in stable condition after discharge criteria met and patient will follow up with the pain clinic in 2-4 weeks
[2019-10-27 09:20] VITALS: PULSE 60
[2019-10-27] MEDS ORDERED: IV FLUID CONTINUATION 1,000 ML IV ONE (09:20)
[2019-10-27 09:40] VITALS: BP 151/70
[2019-10-27 09:40] LABS: Glucose,Whole Blood 146 mg/dL (75-99)
--- NOTE | 2019-10-27 10:51 | FL ---
EXAMINATION TYPE: FL guided pain mgmt statistic DATE OF EXAM: 10/27/2019 HISTORY: Flouroscopy time 9 seconds of fluoroscopy provided. IMPRESSION: 1. Fluoroscopy time.
== END 2019-10-27 09:48 | disposition home or self-care (01) ==
LOC: ORPAIN 07:24
PROVIDERS: ATTEND Specialist
DX: G89.29 Other chronic pain (principal); M47.816 Spondylosis without myelopathy or radiculopathy, lumbar region; M46.1 Sacroiliitis, not elsewhere classified; M96.1 Postlaminectomy syndrome, not elsewhere classified; K21.9 Gastro-esophageal reflux disease without esophagitis; E07.9 Disorder of thyroid, unspecified; E11.9 Type 2 diabetes mellitus without complications; M06.9 Rheumatoid arthritis, unspecified; Z86.73 Personal history of transient ischemic attack (TIA), and cerebral infarction without residual deficits; Z88.8 Allergy status to other drugs, medicaments and biological substances; Z88.1 Allergy status to other antibiotic agents; Z88.0 Allergy status to penicillin; Z91.013 Allergy to seafood
CPT/HCPCS: 64493; 64494; 64495; J2250; J3010; G0260; 27096; 99152

== ENCOUNTER 2019-11-10 08:51 | Day surgery (SDC) | payer MEDICARE, BC ==
[2019-11-09 09:38] VITALS: BMI 27.1
[2019-11-10] MEDS ORDERED: LACTATED RINGERS 1,000 ML IV SCH (09:03)
[2019-11-10] MEDS ORDERED: LIDOCAINE 1% 20 ML VIAL (10MG/ML) FOR IV START INTRADERMA ONE (09:13)
[2019-11-10 09:14] VITALS: TEMP 98.1
[2019-11-10 09:29] LABS: Glucose,Whole Blood 132 mg/dL (75-99)
--- NOTE | 2019-11-10 10:24 | P.PCN ---
Date of Procedure: 11/10/19 Procedure(s) Performed: PREOPERATIVE DIAGNOSIS : 1- Lumbar spondylosis with Facet Arthropathy without myelopathy . 2-left sacroiliitis. 3-Failed back surgery syndrome lumbar area. POSTOPERATIVE DIAGNOSIS: Same as preoperative diagnosis PROCEDURE: 1-Diagnostic bilateral L2 ,L3 , L4 , and L5 medial branch block under fluoroscopy guidance(fluoroscopy images available in the radiology Department ) ( To target the facet joint between L3-4 , L4-5 , and L5-S1 ). 2-left sacroiliac joint steroid injections under fluoroscopy guidance ANESTHESIA: Local with Ropivacain 0.5 % 6 ml , moderate sedation with intravenous Versed 1 mg and Fentanyl 50 mcg. EBL: Minimal COMPLICATION: None. IV FLUIDS: 100 mL of normal saline. PROCEDURE INDICATION: Chronic low back pain secondary to Facet arthropathy and left sacroiliitis unresponsive to conservative treatment. PROCEDURE DESCRIPTION: the patient was seen and identified in the preop holding area , risks and benefits and possible complications of the procedure and alternative were discussed with the patient, and the patient agreed to proceed with the procedure and signed the consent IV was started and vital signs monitored during the procedure and fluoroscopy was used to maximize the benefit and accuracy of the needle placement, and sedation was given to decrease patient anxiety, patient was taken to the procedure room and placed in prone position vital signs monitored in the back prepped with chlorhexidine X3 then under strict sterile technique using a right oblique fluoroscopy ,the junction of the transverse process and the superior articulating process of the right L2 ,L3 , L4 , and L5 vertebra which corresponding to the fluoroscopy image of the eye of the Paptio dog on the block side for the medial branches and subsequently , after local infiltration of skin and subcu tissuies with Ropivacaine 0.5 % , one mL at each level ,then 22-gauge Quincke-type needles , 4 needle was used , each one of them placed at the junction of the base of the transverse process and the superior articular process at the appropriate level, and the needle was advanced until the periosteum contacted, needle placement confirmed with AP oblique and lateral view and after appropriate needle placement confirmed, and after negative aspiration for heme and CSF and there was no paresthesia 2 mL of Ropivacaine 0.5% mixed with 10 mg Depo-Medrol , then half mL injected at each level after negative aspiration the needle subsequently removed and the same procedure repeated for the left side at left side at L2 , L3 , L4 and L5 levels. Then after that the left sacroiliac joint injection done under sterile technique, 22-gauge Quincke type needle placed in the left sacroiliac joint under fluoroscopy guidance, we placement confirmed with AP and lateral view, after negative aspiration ropivacaine 0.5% for mL mixed with 20 mg of Depo- Medrol injected in the left sacroiliac joint after negative aspiration, At the end of the procedure and the needles removed and a bandage applied after the skin was cleaned the cleaning solution patient taken to recovery room in stable condition and monitors in the recovery room for 20-30 minutes and discharged home in stable condition after discharge criteria met and patient will follow up with the pain clinic in 2-4 weeks
[2019-11-10] MEDS ORDERED: IV FLUID CONTINUATION 1,000 ML IV ONE (10:26)
[2019-11-10 10:32] VITALS: RESP 18
[2019-11-10 10:46] VITALS: BP 148/78; PULSE 67
--- NOTE | 2019-11-10 11:30 | FL ---
Fluoroscopy HISTORY: Pain 34 seconds fluoroscopy time supplied to the referring clinician. 5 intraoperative C-arm images docum ent the procedure. See dictated report from anesthesia.
== END 2019-11-10 10:56 | disposition home or self-care (01) ==
LOC: ORPAIN 08:51
PROVIDERS: ATTEND Specialist
DX: G89.29 Other chronic pain (principal); M47.816 Spondylosis without myelopathy or radiculopathy, lumbar region; M46.1 Sacroiliitis, not elsewhere classified; M96.1 Postlaminectomy syndrome, not elsewhere classified; Z88.8 Allergy status to other drugs, medicaments and biological substances; Z88.1 Allergy status to other antibiotic agents
CPT/HCPCS: 64493; 64494; 64495; J2250; J1030; J3010; G0260; 27096; 99152

== ENCOUNTER → 2019-12-03 | Outpatient (CLI) | payer MEDICARE, BC ==
[2019-12-03 11:07] VITALS: BP 158/72; PULSE 65; RESP 16
--- NOTE | 2019-12-03 11:29 | P.PAINPG ---
Subjective Progress Note Date: 12/03/19 This is a follow-up visit for this 79 yeara old male, with a chronic history of severe low back pain started more than 30 years ago, diagnosed with failed back surgery syndrome, lumbar spondylosis and left SI joint dysfunction, he underwent left SI joint injection and bilateral L2, L3, L4, L5 medial branch block on 10/27/2019 and 11/10/2019. He returns today for follow-up. He reports 100% pain relief following these procedures, he would like to proceed with radiofrequency ablation of the lumbar region, starting with the left side. Denies any change in the bowel movement or urination, he is able to ambulate on his own he does not use any walker he does not use a cane, he denies any numbness or tingling sensation in the lower extremities Review of systems is negative for chest pain, shortness of breath, new onset weakness, numbness/tingling, abdominal pain, malaise, fever, night sweats, chills, homicidal or suicidal ideation, or bowel or bladder incontinence. Physical Exam Vitals: Reviewed in EMR GENERAL: Well appearing, in no acute distress PSYCH: Mood and affect is appropriate. Awake, alert, and oriented SKIN: Skin color, texture, turgor normal, no rashes or lesions HEENT: Normocephalic, atraumatic. EOM intact CV: No pedal edema RESP: Respirations are unlabored, no audible wheezing GI: Abdomen non-distended MUSCULOSKELETAL: Bilateral lower extremity strength is normal and symmetric. No atrophy or tone abnormalities are noted. Lumbar spine: Straight leg raising in the sitting position is negative for radicular pain. No pain to palpation over the lumbar spine and paraspinous muscles. Significantly restricted lumbar extension. Buttocks: No pain to palpation over the PSIS, sacroiliac joint maneuvers are negative for pain. Extremities: Peripheral joint ROM is full and pain free without obvious instability or laxity in all four extremities. No edema or skin discolorations noted. Gait: Gait is slow NEUR: Bilaterallower extremity coordination and muscle stretch reflexes are physiologic and symmetric. Negative clonus bilaterally. No loss of sensation is noted. Results Labs: MRI of the lumbar spine done at [facility] at 09/14/2019 multilevel lumbar degenerative disc disease and moderate central canal stenosis and hypertrophic facet joint arthropathy at L3 4 L4 5 and L5-S1 and history of laminectomy and bilateral neuroforaminal narrowing at L3-4 ,L4 5 and L5-S1 Assessment and Plan Plan: Assessment and plan= 1- Failed back surgery syndrome lumbar area. 2-lumbar spondylosis with lumbar facet arthropathy. 3-left sacroiliitis. 4-lumbar spinal stenosis. Patient underwent left-sided sacroiliac joint steroid injection, and diagnostic medial branch block lumbar area at L2, L3, L4, L5 2, with excellent relief We will schedule lumbar radiofrequency ablation at L2, L3, L4, L5 for facets L3-4, L4-5 and L5-S1, left side first. Procedure risk and benefits and alternatives discussed with the patient and his and they agreed with proceeding PQRS Measure Charge Sheet Measure #130: Documentation of Current Meds in Medical Chart: Patient's medications documented in chart Measure #226: Tobacco Use: Screen & Cessation Intervention: Pt not a tobacco user Measure #111: Pneumonia Vaccination: Pneumococcal vaccine administered or previously received Measure #47: Advance Care Plan: Advance care planning discussed & documented, pt chose/unable to give Measure #412: Opioid Treatment Agreement: No documentation of signed opioid treatment agreement Measure #408: Opioid Therapy Follow-up Evaluation: Patient had NO f/u eval minimum every 3 months during opioid therapy Measure #317: Preventitive Care & Scrn High Bld Press & F/U: Pre-hypertensive or hypertensive BP documented, pt will f/u with PCP Measure #128: Body Mass Index (BMI) Screening & Follow-up: BMI documented ABOVE normal parameters - f/u documented Measure #131: Pain Assessment & Follow-up: Pain positive & plan documented, Follow-up scheduled Measure #431: Unhealthy Alcohol Use Preventative Care & Scrn: Patient not identified as an unhealthy alcohol user PQRS Measure Charge Sheet PQRS Narrative: Smoking Status Former smoker Pain Intensity [Left Lower 10 Back] Home Medications: Ambulatory Orders Cholecalciferol [Vitamin D3 (25 Mcg = 1000 Iu)] 2,000 unit PO DAILY 09/23/17 Aspirin EC [Ecotrin Low Dose] 81 mg PO DAILY #0 05/09/18 Insulin Aspart [NovoLOG Flexpen] See Protocol SQ AC-TID PRN 11/24/18 Insulin Detemir [Levemir Flextouch] 36 unit SQ HS 11/24/18 Omeprazole [PriLOSEC] 20 mg PO DAILY 11/24/18 Torsemide [Demadex] 10 mg PO DAILY 11/24/18 Pravastatin Sodium [Pravachol] 40 mg PO HS 02/27/19 Albuterol Sulfate [Proventil Hfa] 2 puff INHALATION Q6HR PRN 30 Days #1 inhaler 03/01/19 predniSONE 10 mg PO DAILY 10/06/19 Allopurinol [Zyloprim] 100 mg PO DAILY 10/09/19 Acetaminophen Tab [Tylenol Tab] 500 mg PO TID PRN 10/21/19 amLODIPine [Norvasc] 10 mg PO DAILY 10/21/19 traMADol HCL [Ultram] 50 mg PO TID PRN 10/21/19 Carvedilol [Coreg] 6.25 mg PO BID 11/30/19 HYDROcodone/APAP 7.5-325MG [Garrison 7.5-325] 1 tab PO Q6HR PRN 11/30/19 Controlled Substance Measures - Controlled Substance Measures Is patient prescribed a controlled substance at discharge?: No
== END | disposition home or self-care (01) ==
LOC: PNWHC3 10:43
PROVIDERS: ATTEND Anesthesiology
DX: G89.29 Other chronic pain (principal); M48.061 Spinal stenosis, lumbar region without neurogenic claudication; M47.816 Spondylosis without myelopathy or radiculopathy, lumbar region; M46.96 Unspecified inflammatory spondylopathy, lumbar region; M46.1 Sacroiliitis, not elsewhere classified; M96.1 Postlaminectomy syndrome, not elsewhere classified; Z87.891 Personal history of nicotine dependence; Z79.4 Long term (current) use of insulin; Z79.82 Long term (current) use of aspirin; Z79.899 Other long term (current) drug therapy
CPT/HCPCS: 99211

== ENCOUNTER → 2019-12-15 | Day surgery (SDC) | payer MEDICARE, BC ==
[2019-12-11 15:16] VITALS: BMI 27.1
[~2019-12-15] MED LIST changes: +IV FLUID CONTINUATION 1,000 ML IV ONE; +LIDOCAINE 1% 20 ML VIAL (10MG/ML) FOR IV START INTRADERMA ONE; +MIDAZOLAM 2 MG/2 ML VIAL ONE; +ROPIVACAINE 5MG/ML 20ML VIAL ONE; +fentaNYL (PF) 50 MCG/ML 2 ML AMP ONE; +methylPREDNISolone ACETATE 40 MG/ML 1 ML VIAL ONE
[2019-12-15 08:47] VITALS: RESP 18; TEMP 97.7
[2019-12-15 08:56] LABS: Glucose,Whole Blood 137 mg/dL (75-99)
--- NOTE | 2019-12-15 10:05 | P.PCN ---
Date of Procedure: 12/15/19 Procedure(s) Performed: PREOPERATIVE DIAGNOSIS: 1-Lumbar Spondylosis with Facet Arthropathy without myelopathy. 2- Lumber degenerative disc disease POSTOPERATIVE DIAGNOSIS: 1- Lumbar Spondylosis with Facet Arthropathy without myelopathy. 2- Lumber degenerative disc disease PROCEDURES : Left Radiofrequency thermocoagulation,L2 , L3 , L4 , and L5 medial branch, with fluoroscopic guidance (fluoroscopy images available in the radiology department) ( to denervate the facet joint at L3-4 ,L4-5 ,and L5-S1 levels ) ANESTHESIA: Moderate sedation with intravenous versed mg and fentaneyl mcg, and local infiltration with Ropivacaine 0.5 % . EBL: Minimal PROCEDURE INDICATION: The patient with low back pain secondary to lumbar facet arthropathy who had more than 50% relief of her pain with previous diagnostic lumbar medial branch block with bupivacaine. PROCEDURE DESCRIPTION / TECHNIQUE: The patient was seen and identified in the preoperative area. Risks, benefits, complications, including but not limited to risk of infection ,bleeding , allergic reactions to the medications and no complete pain releife , and alternatives were discussed with the patient, the patient agreed to proceed with the procedure and signed the consent. IV was started. Vital signs remained stable throughout the procedure. Patient was taken to the OR and time out was completed. The patient was placed in the prone position on the procedure table. The lumber area was prepped and draped in the usual sterile fashion. . Vital signs were closely monitored during the procedure .IV sedation was used during the procedure to decrease patients anxiety. Using AP and then oblique fluoroscopy, the ``eye of the Papito dog corresponding to the connection between the superior and transverse articular processes of Left L2 , L3, L4, and L5 were identified, marked, and localized with 1% lidocaine. Subsequently, a 18 -oo radiofrequency cannula with a 10-mm active tip was advanced guided by fluoroscopy to each of the``eyes of the Papito dog at L2, L3, L4, and L5. Each site then underwent sensory testing at 50 Hz and 0 to 1 volt and motor testing at 2.5 Hz and 0 to 3 volt with local stimulation, but no radicular symptoms down the legs. Thereafter the L2 , L3, L4 , and L5 sites underwent radiofrequency thermocoagulation at 80 degrees celsius for 90 seconds after injecting 0.5 ml of PF Ropivacaine 1ml, then after the thermocoagulation done , 1 ml of the block solution containing Depo-Medrol 40 mg and 3 ml of Ropivacaine 0.5% was injected at the Left L2 L3 , L4 , and L5 , levels after negative aspiration of CSF and blood and with no paresthesias. Cannulas were retracted while injecting lidocaine 1% until the needle is out. At the end of the procedure, the skin was cleansed and bandages were applied. COMPLICATIONS: No acute complications. DISPOSITION / PLANS: The patient was placed in a supine position and transferred to the recovery area in a stable condition for observation and was discharged from the recovery room after meeting discharge criteria. Home discharge instructions given to the patient by the staff. The patient was reexamined prior to discharge. The patient will schedule a follow up in the clinic in 2-4 weeks.
[2019-12-15 10:20] LABS: Glucose,Whole Blood 152 mg/dL (75-99)
--- NOTE | 2019-12-15 10:34 | FL ---
Fluoroscopy HISTORY: Pain 13 seconds fluoroscopy time supplied to the referring clinician. 4 intraoperative C-arm images docum ent the procedure. See dictated report from anesthesia.
[2019-12-15 10:38] VITALS: BP 154/78; PULSE 61
== END ==
LOC: ORPAIN 08:12
PROVIDERS: ATTEND Specialist
DX: M47.816 Spondylosis without myelopathy or radiculopathy, lumbar region (principal); M51.36 Other intervertebral disc degeneration, lumbar region; E11.9 Type 2 diabetes mellitus without complications; Z95.0 Presence of cardiac pacemaker
CPT/HCPCS: 64635; 64636 ×2; J2250; J1030; J3010; J2795; 99152; 99153

== ENCOUNTER 2019-12-30 08:19 | Day surgery (SDC) | payer MEDICARE, BC ==
[2019-12-28 16:00] VITALS: BMI 27.9
[~2019-12-30 08:19] MED LIST changes: +BUPIVACAINE (PF) 0.5% 30 ML VIAL ONE; -IV FLUID CONTINUATION 1,000 ML IV ONE; -LIDOCAINE 1% 20 ML VIAL (10MG/ML) FOR IV START INTRADERMA ONE; -ROPIVACAINE 5MG/ML 20ML VIAL ONE
[2019-12-30 08:50] LABS: Glucose,Whole Blood 99 mg/dL (75-99)
[2019-12-30 08:55] VITALS: RESP 16; TEMP 98.2
[2019-12-30] MEDS ORDERED: LIDOCAINE 1% 20 ML VIAL (10MG/ML) FOR IV START INTRADERMA ONE (08:55)
--- NOTE | 2019-12-30 10:02 | P.PCN ---
Date of Procedure: 12/30/19 Procedure(s) Performed: PREOPERATIVE DIAGNOSIS: 1-Lumbar Spondylosis with Facet Arthropathy without myelopathy. 2-myofascial pain syndrome lumbar area (left side). 3-failed back surgery syndrome lumbar area. 4-lumbar degenerative disc disease. POSTOPERATIVE DIAGNOSIS: Same as preoperative diagnosis. PROCEDURES : 1-Right Radiofrequency thermocoagulation, L2 , L3 , L4 , and L5 medial branch, with fluoroscopic guidance (fluoroscopy images available in the radiology department) ( to denervate the facet joint at L3-4 ,L4-5 ,and L5-S1 levels ) 2-trigger point injection left side lumbar para spinal muscles(2 trigger points injected on the left side lumbar para spinal muscles ). ANESTHESIA: Moderate sedation with intravenous versed 2 mg and fentaneyl 50 mcg, and local infiltration with Ropivacaine 0.5 % . EBL: Minimal PROCEDURE INDICATION: The patient with low back pain secondary to lumbar facet arthropathy who had more than 50% relief of her pain with previous diagnostic lumbar medial branch block with bupivacaine. PROCEDURE DESCRIPTION / TECHNIQUE: The patient was seen and identified in the preoperative area. Risks, benefits, complications, including but not limited to risk of infection ,bleeding , allergic reactions to the medications and no complete pain releife , and alternatives were discussed with the patient, the patient agreed to proceed with the procedure and signed the consent. IV was started. Vital signs remained stable throughout the procedure. Patient was taken to the OR and time out was completed. The patient was placed in the prone position on the procedure table. The lumber area was prepped and draped in the usual sterile fashion. . Vital signs were closely monitored during the procedure .IV sedation was used during the procedure to decrease patients anxiety. Using AP and then oblique fluoroscopy, the ``eye of the Papito dog corresponding to the connection between the superior and transverse articular processes of Right L2 , L3, L4, and L5 were identified, marked, and localized with 1% lidocaine. Subsequently, a 18 -dt radiofrequency cannula with a 10-mm active tip was advanced guided by fluoroscopy to each of the``eyes of the Papito dog at Right L2, L3, L4, and L5. Each site then underwent sensory testing at 50 Hz and 0 to 1 volt and motor testing at 2.5 Hz and 0 to 3 volt with local stimulation, but no radicular symptoms down the legs. Thereafter the Right L2 , L3, L4 , and L5 sites underwent radiofrequency thermocoagulation at 80 degrees celsius for 90 seconds after injecting 0.5 ml of PF Ropivacaine 1ml, then after the thermocoagulation done , 1 ml of the block solution containing Depo-Medrol 40 mg and 3 ml of Ropivacaine 0.5% was injected at the Right L2 L3 , L4 , and L5 , levels after negative aspiration of CSF and blood and with no paresthesias. Cannulas were retracted while injecting lidocaine 1% until the needle is out. Then the trigger point injection done on the left side paraspinal muscles 2 trigger point identified in the left side lumbar paraspinal muscles, each one of them injected with ropivacaine 0.5% 2 mL using 25-gauge needle, injection done after negative aspiration, and there was no paresthesia during the injection, patient tolerated the procedure well without any complications (injection done after the area was prepped with chlorhexidine 3 and done in sterile technique ). At the end of the procedure, the skin was cleansed and bandages were applied. COMPLICATIONS: No acute complications. DISPOSITION / PLANS: The patient was placed in a supine position and transferred to the recovery area in a stable condition for observation and was discharged from the recovery room after meeting discharge criteria. Home discharge instructions given to the patient by the staff. The patient was reexamined prior to discharge. The patient will schedule a follow up in the clinic in 2-4 weeks.
[2019-12-30] MEDS ORDERED: IV FLUID CONTINUATION 1,000 ML IV ONE ×2 (10:03)
[2019-12-30 10:07] VITALS: PULSE 60
--- NOTE | 2019-12-30 10:18 | FL ---
Fluoroscopy HISTORY: Pain 10 seconds fluoroscopy time supplied to the referring clinician. 3 intraoperative C-arm images docum ent the procedure. See dictated report from anesthesia.
[2019-12-30 10:19] VITALS: BP 157/71
== END 2019-12-30 10:58 | disposition home or self-care (01) ==
LOC: ORPAIN 08:19
PROVIDERS: ATTEND Specialist
DX: M47.816 Spondylosis without myelopathy or radiculopathy, lumbar region (principal); M79.18 Myalgia, other site; M51.36 Other intervertebral disc degeneration, lumbar region; M96.1 Postlaminectomy syndrome, not elsewhere classified; I10 Essential (primary) hypertension; J84.9 Interstitial pulmonary disease, unspecified; E11.9 Type 2 diabetes mellitus without complications; Z91.013 Allergy to seafood; Z91.041 Radiographic dye allergy status; Z88.1 Allergy status to other antibiotic agents; Z88.8 Allergy status to other drugs, medicaments and biological substances; Z86.73 Personal history of transient ischemic attack (TIA), and cerebral infarction without residual deficits
CPT/HCPCS: 20552; 64635; 64636 ×2; J2250; J1030; J3010; 99152; 99153

== ENCOUNTER → 2020-01-04 | Outpatient (CLI) | payer MEDICARE, BC | END | disposition home or self-care (01) | LOC: LABPAT 11:39 | PROVIDERS: ATTEND Orthopaedic Surgery | DX: Z01.812 Encounter for preprocedural laboratory examination (principal) | CPT/HCPCS: 87070 ==

== ENCOUNTER 2020-01-18 08:19 | Day surgery (SDC) | payer MEDICARE, BC ==
--- NOTE | 2020-01-17 14:03 | HP ---
HISTORY AND PHYSICAL DATE OF SURGERY: 01/18/2020 Mark Diaz is an 79-year-old patient seen with symptomatic right knee osteoarthritis. We discussed options for treatment. He elected to proceed with right total knee arthroplasty. Consent was obtained. Medical clearance was provided by Dr. Chaudhary, cardiac clearance by Dr. Narvaez. PAST MEDICAL HISTORY: Hypertension, hypothyroidism, insulin-dependent diabetes. PAST SURGICAL HISTORY: Lumbar spine surgery. DAILY MEDICATIONS: 1. Insulin. 2. Levothyroxine. 3. Omeprazole. 4. Pravastatin. ALLERGIES: IODINE. SOCIAL HISTORY: He denies tobacco use. PHYSICAL EXAMINATION: Evaluation of the right knee: Range of motion -2/3 to 120. Mild effusion. Tenderness in the medial joint line. Crepitus along the medial and patellofemoral compartments with range of motion. Ligaments stable. Hip rotation without pain. Distal neurovascular exam intact. RADIOGRAPHS: Right knee radiographs revealed moderate to severe osteoarthritic changes with a large osteochondral defect involving the medial femoral condyle. IMPRESSION: 1. Right knee osteoarthritis. 2. Hypertension. 3. Hyperlipidemia. 4. Hypothyroidism. 5. Insulin-dependent diabetes. PLAN: Right total knee arthroplasty. Surgery 01/18/2020. MMODL / IJN: [id number] /
[~2020-01-18 08:19] MED LIST changes: +ACETAMINOPHEN TAB 500 MG TAB PO ONE; -BUPIVACAINE (PF) 0.5% 30 ML VIAL ONE; +HYDROmorphone 0.5 MG/0.5 ML SYRINGE IVP PRN; -LACTATED RINGERS 1,000 ML IV SCH; +LIDOCAINE 1% 20 ML VIAL (10MG/ML) FOR IV START INTRADERMA PRN; +MELOXICAM 7.5 MG TAB PO ONE; +MIDAZOLAM 2 MG/2 ML VIAL IV PRN; -MIDAZOLAM 2 MG/2 ML VIAL ONE; +TRANEXAMIC ACID 1,000 MG in SODIUM CHLORIDE 0.9% 100 ML IVPB ONE; +fentaNYL (PF) 50 MCG/ML 2 ML AMP IVP PRN; -fentaNYL (PF) 50 MCG/ML 2 ML AMP ONE; -methylPREDNISolone ACETATE 40 MG/ML 1 ML VIAL ONE
[2020-01-18 09:04] LABS: Glucose,Whole Blood 129 mg/dL (75-99)
[2020-01-18] MEDS: LACTATED RINGERS 1,000 ML IV SCH ×3 (09:08→19:07)
[2020-01-18] MEDS ORDERED: ONDANSETRON 4 MG/2 ML VIAL IVP ONE (09:10)
[2020-01-18] MEDS ORDERED: DEXAMETHASONE SOD PHOSPHATE 10 MG/ML 1 ML VIAL IV ONE (09:10)
[2020-01-18] MEDS ORDERED: MIDAZOLAM 2 MG/2 ML VIAL IV ONE (09:31)
[2020-01-18] MEDS ORDERED: fentaNYL (PF) 50 MCG/ML 2 ML AMP IV ONE (09:31)
[2020-01-18] MEDS ORDERED: ROPIVACAINE 0.2%-NS ON-Q PUMP 1,090 MG, EMPTY PAIN BALL 1 EACH MISCELLANE PRN (10:03)
--- NOTE | 2020-01-18 10:05 | P.ANPRN ---
Procedure Note - Anesthesia - Nerve Block Performed Right Adductor Canal Infusion Time Out Performed: Yes Date of Procedure: 01/18/20 Procedure Start Time: :33 Procedure Stop Time: :40 Location of Patient: PreOp Indication: Acute Post-Operative Pain, Requested by Surgeon Specifically requested for management of pain by DrYusef: Steve Hernandez Sedation Type: Sedate with meaningful contact maintained Preparation: Sterile Prep Position: Supine Catheter Depth at Skin (cm): 6 Catheter: Indwelling Needle Types: Pajunk Needle Gauge: 18 Ultrasound used to visualize needle placement: Yes Ultrasound used to observe medication spread: Yes Injectate: 0.5% Ropivacaine (see comment for volume) (20 cc) Blood Aspirated: No Pain Paresthesia on Injection Noted: No Resistance on Injection: Normal Image Stored and Saved: Yes Events: Uneventful and Well Tolerated
[2020-01-18] MEDS ORDERED: TRANEXAMIC ACID 1,000 MG/10 ML VIAL ONE (10:07)
[2020-01-18] MEDS ORDERED: ONDANSETRON 4 MG/2 ML VIAL ONE (10:07)
[2020-01-18] MEDS ORDERED: LIDOCAINE 1% INJ 10MG/ML (20 ML MDV) ONE (10:07)
[2020-01-18] MEDS ORDERED: SUCCINYLCHOLINE CHLORIDE 100 MG/5 ML SYR IV ONE (10:07)
[2020-01-18] MEDS ORDERED: PHENYLEPHRINE-0.9% NACL SYG 1 MG/10 ML SYRINGE ONE (10:07)
[2020-01-18] MEDS ORDERED: SODIUM CHLORIDE 0.9% 100 ML BAG ONE (10:07)
[2020-01-18] MEDS ORDERED: PROPOFOL 10 MG/ML 20 ML VIAL IV ONE (10:07)
[2020-01-18] MEDS ORDERED: MIDAZOLAM 2 MG/2 ML VIAL ONE (10:07)
[2020-01-18] MEDS ORDERED: fentaNYL (PF) 50 MCG/ML 2 ML AMP ONE (10:07)
[2020-01-18] MEDS ORDERED: HYDROmorphone (PF) 1 MG/ML ONE (10:07)
[2020-01-18] MEDS ORDERED: LACTATED RINGERS 1,000 ML IV ONE (10:54)
[2020-01-18] MEDS ORDERED: ceFAZolin 3,000 MG in SODIUM CHLORIDE 0.9% IRRIGATIO 3,000 ML IRRIGATION ONE (10:55)
[2020-01-18] MEDS: ROPIVACAINE 246.25 MG, EPINEPHrine 0.5 MG, KETOROLAC 30 MG, cloNIDine HCL/PF 80 MCG, WA... MISCELLANE ONE ×10 (10:57→11:32)
[2020-01-18] MEDS ORDERED: SODIUM CHLORIDE 0.9% 1,000 ML IV SCH (12:15)
[2020-01-18] MEDS ORDERED: ONDANSETRON 4 MG/2 ML VIAL IVP PRN (12:15)
[2020-01-18] MEDS ORDERED: NALOXONE 0.4 MG/ML 1 ML VIAL IV PRN (12:15)
[2020-01-18] MEDS ORDERED: HYDROcodone/APAP 5-325MG 1 EACH TAB PO PRN ×2 (12:15)
[2020-01-18] MEDS ORDERED: HYDROmorphone 0.5 MG/0.5 ML SYRINGE IVP PRN ×3 (12:15)
--- NOTE | 2020-01-18 12:15 | P.OP ---
Date of Procedure: 01/18/20 Preoperative Diagnosis: Right knee osteoarthritis Postoperative Diagnosis: Right knee osteoarthritis Procedure(s) Performed: Right total knee arthroplasty Implants: 1. Depuy attune size 7 right cruciate-retaining cemented femur 2. Depuy attune size 8 right cemented fixed bearing tibial baseplate 3. Depuy attune size 7 fixed bearing cruciate retaining 6 mm polyethylene tibial insert 4. Depuy attune 41 mm all polyethylene cemented patella Anesthesia: GETA, regional (Adductor canal catheter), local Surgeon: Steve Hernandez Chief Investment Officer #1: Michael George Estimated Blood Loss (ml): 35 Pathology: other (Bone) Condition: stable Disposition: PACU Indications for Procedure: 79-year-old patient seen with symptomatic right knee osteoarthritis. After treatment options were discussed, he elected to proceed with total knee arthroplasty. Operative Findings: see description of procedure Description of Procedure: Patient was taken to the operative suite after having an adductor canal catheter placed by the department of anesthesia. Patient underwent a general anesthetic by the department of anesthesia. Patient was given preoperative IV intake antibiotics and TXA. A well-padded tourniquet was placed about the right lower extremity. The lower extremity was then prepped and draped in the normal sterile orthopedic fashion. The extremity was elevated, a tourniquet was insufflated to 300. A standard anterior incision was made sharply through skin. Dissection was taken down through the subcutaneous soft tissues down to the extensor mechanism. A medial arthrotomy was performed, patella was everted and knee was flexed. There was advanced osteoarthritis noted. I introduced my distal intramedullary femoral drill. I then introduced the distal femoral cutting jig. Shen TITUS secured the cutting jig with 2 pins. I held retractors in position while Shen TITUS performed the distal femoral resection through the guide area we now removed her distal femoral cutting guide. We now placed our 4-in-1 femoral cutting block and positioned and it was secured with 2 pins by Shen TITUS while I held the block in position. The distal femoral finishing was now completed. A proximal tibial cutting guide was positioned. I held the guide in the appropriate position with both hands well Shen TITUS inserted stabilizing pins into the guide. Proximal tibial cut was made. We now placed a trial femoral component into position, along with an appropriate size tibial tray and insert. We now took the knee through range of motion and had full extension good flexion and good overall soft tissue balance noted. The patella was everted and stabilized with 2 towel clips held by Shen TITUS while I performed a flush with patellar quad tendon utilizing a fresh sawblade. We templated the patella, appropriate drill holes were made. An appropriate trial patella was positioned, knee was taken through full range of motion with the patella tracking very nicely. The trial patella was removed. Drill holes were made through the femoral component. All trial components were removed after marking off the appropriate rotation of the tibia. Retractors were now positioned along the proximal tibia. An appropriate keel punch was made with the appropriate size tibial guide by myself on Shen TITUS assisted by holding retractors. At this point appropriate size implants were chosen and opened. The joint was irrigated copiously with pulse lavage mechanical irrigation. The posterior capsule was infiltrated with local analgesic. The wound was irrigated with pulse lavage mechanical irrigation. We mixed antibiotic methylmethacrylate. We placed the knee into flexion. We placed multiple retractors assisted by Shen TITUS to expose the proximal tibia. Once the methyl methacrylate was ready, the tibial component was cemented into place removing any excess methylmethacrylate form by both myself and Shen TITUS. The femoral component was cemented into place removing the removing any excess methylmethacrylate performed by both myself and Shen TITUS. We then inserted the appropriate size polyethylene tibial insert. We made sure that it was locked into position. We took the knee into full extension, and then back in a flexion making sure we had removed any excess methylmethacrylate. The patellar component was then cemented down and secured with clamp. Excess methylmethacrylate removed. We kept the knee in full extension, patellar clamp in position until methylmethacrylate had hardened. Once it had hardened the p atellar clamp was removed. The knee was taken through full range of motion. The patella tracked nicely. There was good soft tissue balancing. The tourniquet was now released. Additional hemostasis was achieved via electrocautery. A second gram of TXA was given. The wound again was irrigated with pulse lavage mechanical irrigation. The superficial soft tissues were infiltrated local analgesic. The extensor mechanism was repaired with Vicryl. We checked the repair with range of motion and it was stable. The subcutaneous soft tissues were repaired with Vicryl in layers. The skin was approximated with pernio/Dermabond. Sterile dressings were applied followed by loose web roll and Chiki bandage. The patient was transferred to a bed, and taken to recovery in stable and satisfactory condition. Shen TITUS assisted with this complex procedure.
[2020-01-18] MEDS ORDERED: PROMETHAZINE INJ 25 MG/ML 1 ML VIAL IVPB ONE (12:43)
[2020-01-18 12:59] LABS: Glucose,Whole Blood 224 mg/dL (75-99)
[2020-01-18] MEDS ORDERED: INSULIN ASPART (NovoLOG) 100 UNIT/ML VIAL SQ ONE (13:00)
--- NOTE | 2020-01-18 13:34 | XR ---
EXAMINATION TYPE: XR knee limited RT DATE OF EXAM: 01/18/2020 CLINICAL HISTORY: Right knee pain and arthritis status post total knee replacement. TECHNIQUE: Portable AP and crosstable lateral views of the right knee are obtained immediately posto peratively. COMPARISON: None FINDINGS: Metallic hardware from total right knee arthroplasty is seen and appears satisfactory in a lignment and position. There is evidence of recent surgery with diffuse subcutaneous gas and soft ti ssue swelling noted. IMPRESSION: METALLIC HARDWARE FROM TOTAL RIGHT KNEE ARTHROPLASTY IS SATISFACTORY IN ALIGNMENT.
--- NOTE | 2020-01-18 14:35 | P.CONS ---
History of Present Illness - Reason for Consult Consult date: 01/18/20 Medical Management Requesting physician: Steve Hernandez - Chief Complaint right total knee arthroplasty - History of Present Illness This is a 79-year-old male with a known history of hypertension, diabetes mellitus, hypothyroidism, ischemic cardiomyopathy with AICD, chronic kidney disease stage III, CVA, hyperlipidemia, lymphocytic leukemia, rheumatoid arthritis. Patient presents to the hospital for right total knee arthroplasty with Dr. Hernandez. We have been consulted for medical management. Prior to the procedure patient did have some nausea. Apparently he did have one episode of emesis that was clearish in color. And Phenergan has also been given. Zofran is also on board. Patient denies any abdominal pain or any bowel movement changes. He denies any chest pain or shortness of breath. He reports the nausea is improved. He denies any burning with urination. Review of Systems This for HPI otherwise unremarkable Past Medical History Past Medical History: CVA/TIA, Diabetes Mellitus, GERD/Reflux, Hyperlipidemia, Hypertension, Pneumonia, Rheumatoid Arthritis (RA), Thyroid Disorder Additional Past Medical History / Comment(s): Interstitial lung disease/rheumatoid lung SOB. Gout. CVA in 2005- no residual effects. Hiatal hernia. Bronchitis. states "had [place] virus and possibly lymes disease". Chronic back pain. History of Any Multi-Drug Resistant Organisms: None Reported Past Surgical History: AICD, Appendectomy, Back Surgery, Heart Catheterization, Tonsillectomy Additional Past Surgical History / Comment(s): PAIN CLINIC PROCEDURE ON 12/30/2019. Biventricular AICD placement. Battery change r/t recall. Back surgery 6. Colonoscopy. Cataract sx. O ral sx "to smooth down bones in mouth". Past Anesthesia/Blood Transfusion Reactions: No Reported Reaction Additional Past Anesthesia/Blood Transfusion Reaction / Comm: Blood transfusion- no reaction, BP was high when came in for his 1st pain procedure-procedure was canceled- states no problem since. Type of Cardiac Device: AICD Device Placement Date:: 2016 Past Psychological History: No Psychological Hx Reported Additional Psychological History / Comment(s): . Smoking Status: Former smoker Past Alcohol Use History: Occasional Additional Past Alcohol Use History / Comment(s): SMOKED 30 YEARS, 2 1/2 PPD, QUIT 1988 EST Past Drug Use History: None Reported Additional Drug Use History / Comment(s): . - Past Family History Mother Family Medical History: No Reported History Father History Unknown: Yes Family Medical History: No Reported History Additional Family Medical History / Comment(s): Father was healthy and lived to be 88yrs old. Medications and Allergies Home Medications Medication Instructions Recorded Confirmed Type Cholecalciferol [Vitamin D3 (25 2,000 unit PO DAILY 09/23/17 01/18/20 History Mcg = 1000 Iu)] Aspirin EC [Ecotrin Low Dose] 81 mg PO DAILY #0 05/09/18 01/18/20 Rx Insulin Aspart [NovoLOG Flexpen] See Protocol SQ AC-TID PRN 11/24/18 01/18/20 History Insulin Detemir [Levemir Flextouch] 38 unit SQ HS 11/24/18 01/18/20 History Omeprazole [PriLOSEC] 20 mg PO QAM 11/24/18 01/18/20 History Torsemide [Demadex] 10 mg PO QAM 11/24/18 01/18/20 History Pravastatin Sodium [Pravachol] 40 mg PO HS 02/27/19 01/18/20 History predniSONE 10 mg PO QAM 10/06/19 01/18/20 History Allopurinol [Zyloprim] 100 mg PO PC-SUPPER 10/09/19 01/18/20 History Carvedilol [Coreg] 6.25 mg PO BID 11/30/19 01/18/20 History Levothyroxine Sodium [Synthroid] 25 mcg PO QAM 12/11/19 01/18/20 History amLODIPine [Norvasc] 10 mg PO QAM 12/11/19 01/18/20 History predniSONE 5 mg PO QAM 01/12/20 01/18/20 History Allergies Allergy/AdvReac Type Severity Reaction Status Date / Time amlodipine Allergy Swelling Verified 01/18/20 08:39 doxycycline Allergy Anaphylaxis Verified 01/18/20 08:39 Iodinated Contrast Media Allergy Anaphylaxis Verified 01/18/20 08:39 [Iodinated Contrast- Oral and IV Dye] iodine Allergy Anaphylaxis Verified 01/18/20 08:39 metronidazole [From Flagyl] Allergy Rash/Hives Verified 01/18/20 08:39 shrimp Allergy Rash/Hives Verified 01/18/20 08:39 acarbose AdvReac Abdominal Verified 01/18/20 08:39 Pain amoxicillin trihydrate AdvReac Nausea & Verified 01/18/20 08:39 [From Augmentin] Vomiting potassium clavulanate AdvReac Nausea & Verified 01/18/20 08:39 [From Augmentin] Vomiting Physical Exam Vitals: Vital Signs Temp Pulse Resp BP Pulse Ox 01/18/20 13:15 60 16 140/61 93 L 01/18/20 13:01 62 16 142/67 94 L 01/18/20 12:45 60 16 161/69 92 L 01/18/20 12:28 60 16 149/66 96 01/18/20 08:52 98.2 F 76 16 158/73 96 Intake and Output 01/17/20 01/18/20 01/18/20 22:59 06:59 14:59 Intake Total 1551 Output Total 35 Balance 1516 Intake: IV 1551 Output: Estimated Blood Loss 35 Other: Weight 92 kg Head normocephalic Neck supple Lungs clear to auscultation bilaterally no wheezing or crackles Heart regular rate and rhythm S1-S2, no rub or gallop Abdomen is soft nontender nondistended positive bowel sounds no hepatosplenomegaly Extremities no edema right leg dressing clean dry and intact. Has ice pack in place. Patient has full sensation in his toes. He is to move his foot. No calf tenderness. Neuro alert and orientated to 3 Results Labs: Abnormal Lab Results - Last 24 Hours (Table) 01/18/20 01/18/20 Range/Units 09:00 12:57 POC Glucose (mg/dL) 129 H 224 H (75-99) mg/dL Assessment and Plan Assessment: 1. Osteoarthritis status post Right total knee arthroplasty with Dr. Hernandez. Estimated blood loss 35 mL. Continue pain control per orthopedics. Continue the Lovenox for DVT prophylaxis. 2. Diabetes mellitus insulin-dependent: Resume patient's Levemir and scheduled NovoLog. We'll add sliding scale coverage and check a hemoglobin A1c 3. History of chronic kidney disease stage III. We'll continue to monitor kidney functions closely. We will discontinue the Mobic to avoid any kidney injury. 4. Chronic lymphocytic leukemia 5. History of CVA 6. History of COPD stable 7. History of rheumatoid arthritis on chronic prednisone. 8. History of ischemic cardiacmyopathy status post AICD 9. Hyperlipidemia: Continue Pravachol 10. Hypothyroidism resume Synthroid Thank you for this consultation. We will continue to follow along during patient's hospitalization. Time with Patient: Greater than 30 (Greater than 50% of the total time spent in counseling and coordination of care.I performed an examination of the patient and discussed their management with the physician Glass Blower Helper. I have reviewed the Physician Glass Blower Helper's notes and agree with the documented findings and plan of care)
[2020-01-18 16:56] LABS: Glucose,Whole Blood 213 mg/dL (75-99)
[2020-01-18] MEDS: CARVEDILOL 6.25 MG TAB PO SCH (17:08)
[2020-01-18] MEDS: INSULIN ASPART (NovoLOG) 100 UNIT/ML VIAL SQ SCH ×3 (17:08→20:21)
[2020-01-18] MEDS ORDERED: ALLOPURINOL 100 MG TAB PO SCH (18:30)
[2020-01-18 20:11] LABS: Glucose,Whole Blood 304 mg/dL (75-99)
[2020-01-18] MEDS ORDERED: SENNOSIDES-DOCUSATE SODIUM 1 EACH TAB PO SCH (21:00)
[2020-01-18] MEDS ORDERED: PRAVASTATIN SODIUM 40 MG TAB PO SCH (21:00)
[2020-01-18] MEDS ORDERED: INSULIN DETEMIR (LEVEMIR) 100 UNIT/ML SYR SQ SCH (21:00)
[2020-01-19] MEDS: ENOXAPARIN 30 MG/0.3 ML SYRINGE SQ SCH ×2 (00:05→12:11)
[2020-01-19] MEDS ORDERED: LEVOTHYROXINE 25 MCG TAB PO SCH (06:30)
--- NOTE | 2020-01-19 06:54 | P.PN ---
Progress Note - Text Progress Note Date: 01/19/20 Postoperative day # 1 status post total knee arthroplasty, under spinal anesthesia, and adductor canal catheter placed for postoperative analgesia, currently at ropivacaine 0.2% 8 mL per hour and continuous infusion, visual analogue scale is 2-3/10, patient using oral pain medication for breakthrough pain. Assessment and plan= Acute postoperative pain, adductor canal catheter for pain control, pain is well controlled we'll continue the same management.
[2020-01-19 07:07] LABS: Glucose,Whole Blood 212 mg/dL (75-99)
[2020-01-19] MEDS ORDERED: PANTOPRAZOLE 40 MG TABLET PO SCH (07:30)
[2020-01-19] MEDS: CARVEDILOL 6.25 MG TAB PO SCH (07:45)
[2020-01-19] MEDS: INSULIN ASPART (NovoLOG) 100 UNIT/ML VIAL SQ SCH ×2 (07:46)
[2020-01-19 07:48] VITALS: BP 129/52; PULSE 71; RESP 18; TEMP 97.9
[2020-01-19 07:49] LABS: Basophils % (A) 0 %; Eosinophils % (A) 0 %; HCT 32.8 % (39.0-53.0); HGB 10.2 gm/dL (13.0-17.5); Lymphocytes # (A) 2.9 k/uL (1.0-4.8); Lymphocytes % (A) 13 %; MCHC 31.1 g/dL (31.0-37.0); MCV 86.7 fL (80.0-100.0); Mean Platelet Volume 7.9; Monocytes # (A) 1.4 k/uL (0-1.0); Monocytes % (A) 6 %; Neutrophils % (A) 79 %; Platelet Count 271 k/uL (150-450); RBC 3.78 m/uL (4.30-5.90); RDW 14.8 % (11.5-15.5); WBC 22.7 k/uL (3.8-10.6)
[2020-01-19 08:11] LABS: Albumin 3.2 g/dL (3.5-5.0); Calcium 8.4 mg/dL (8.4-10.2); Potassium 5.4 mmol/L (3.5-5.1); Total Bilirubin 0.1 mg/dL (0.2-1.3); Total Protein 5.7 g/dL (6.3-8.2)
[2020-01-19] MEDS ORDERED: TORSEMIDE 20 MG TAB PO SCH (09:00)
[2020-01-19] MEDS ORDERED: amLODIPine 10 MG TAB PO SCH (09:00)
[2020-01-19] MEDS ORDERED: MELOXICAM 7.5 MG TAB PO SCH (09:00)
[2020-01-19] MEDS ORDERED: predniSONE 10 MG TAB PO SCH (09:00)
[2020-01-19] MEDS ORDERED: CHOLECALCIFEROL 1,000 UNIT TAB PO SCH (09:00)
[2020-01-19] MEDS ORDERED: predniSONE 5 MG TAB PO SCH (09:00)
[2020-01-19] MEDS ORDERED: SODIUM POLYSTYRENE SULFONATE 15 GM/60 ML BOTTLE PO STA (10:03)
[2020-01-19] MEDS ORDERED: FERROUS SULFATE 325 MG TAB PO SCH (10:15)
[2020-01-19 12:06] LABS: Glucose,Whole Blood 72 mg/dL (75-99)
--- NOTE | 2020-01-19 13:24 | P.PN ---
Subjective Progress Note Date: 01/19/20 Principal diagnosis: Status post right total knee arthroplasty Patient evaluated at bedside, his is present. He is doing very well. His tolerated physical therapy very well. His pain is well-controlled. Denies chest pain or shortness of breath. Objective - Vital Signs Vital signs: Vital Signs Temp 97.9 F 01/19/20 07:00 Pulse 71 01/19/20 08:00 Resp 18 01/19/20 08:00 BP 129/52 01/19/20 07:00 Pulse Ox 91 L 01/19/20 07:00 Intake & Output 01/18/20 01/19/20 01/19/20 18:59 06:59 18:59 Intake Total 1551 Output Total 35 250 Balance 1516 -250 Weight 92 kg Intake: IV 1551 Output: Urine 250 Estimated Blood Loss 35 Other: # Voids 1 - Exam Right lower extremity: Incision is clean, dry, and intact. The exofin fusion tape is in good condition. There is bloody serosanguineous drainage noted below the Tegaderm near the abductor canal block. There is minimal soft tissue swelling and ecch ymosis surrounding the medial and lateral aspects of the incision. Calf is soft, no tenderness with palpation. Plantar flexion, dorsiflexion, EHL, FHL are intact. Sensory exam to light touch throughout the extremity is intact, dorsal pedis pulses 2+. - Labs CBC & Chem 7: 01/19/20 07:15 01/19/20 07:15 Labs: Abnormal Lab Results - Last 24 Hours (Table) 01/18/20 01/18/20 01/19/20 Range/Units 16:54 20:02 07:06 WBC (3.8-10.6) k/uL RBC (4.30-5.90) m/uL Hgb (13.0-17.5) gm/dL Hct (39.0-53.0) % Neutrophils # (1.3-7.7) k/uL Monocytes # (0-1.0) k/uL Potassium (3.5-5.1) mmol/L BUN (9-20) mg/dL Creatinine (0.66-1.25) mg/dL Glucose (74-99) mg/dL POC Glucose (mg/dL) 213 H 304 H 212 H (75-99) mg/dL Total Bilirubin (0.2-1.3) mg/dL Total Protein (6.3-8.2) g/dL Albumin (3.5-5.0) g/dL 01/19/20 01/19/20 01/19/20 Range/Units 07:15 07:15 11:54 WBC 22.7 H (3.8-10.6) k/uL RBC 3.78 L (4.30-5.90) m/uL Hgb 10.2 L (13.0-17.5) gm/dL Hct 32.8 L (39.0-53.0) % Neutrophils # 18.0 H (1.3-7.7) k/uL Monocytes # 1.4 H (0-1.0) k/uL Potassium 5.4 H (3.5-5.1) mmol/L BUN 33 H (9-20) mg/dL Creatinine 1.81 H (0.66-1.25) mg/dL Glucose 225 H (74-99) mg/dL POC Glucose (mg/dL) 72 L (75-99) mg/dL Total Bilirubin 0.1 L (0.2-1.3) mg/dL Total Protein 5.7 L (6.3-8.2) g/dL Albumin 3.2 L (3.5-5.0) g/dL Assessment and Plan Plan: Assessment: Postoperative day #1 status post right total knee arthroplasty Plan: Pain control, plan for discharge home on oral medication GI and DVT prophylaxis, aspirin 81 mg twice a day Wound care instructions discussed. Discussed with nursing to remove the abduct or canal block for discharge Icing and elevating techniques discuss Home physical therapy and nursing after discharge Medical recommendations Plan for discharge home today Time with Patient: Less than 30
--- NOTE | 2020-01-19 13:26 | P.DS ---
Providers Date of admission: 01/18/2020 Expected date of discharge: 01/19/20 Attending physician: Steve Hernandez Consults: 01/18/20 12:15 Consult Physician Routine Consulting Provider: Kenyon Chaudhary Consult Reason/Comments: Medical management Do you want consulting provider notified?: Yes Primary care physician: Kenyon Chaudhary [facility] Course: Date of admission: 01/18/2020 Date of discharge: 01/19/2020] Admission diagnosis: Status post right total knee arthroplasty Discharge diagnosis: Same Attending physician: Dr. Hernandez Surgical procedures: Right total knee arthroplasty Brief history: Patient is a 79-year-old male with a history of progressive primary right knee osteoarthritis. At this point patient has failed conservative treatment measures and has opted to proceed with a elective right total knee arthroplasty. Hospital course: Details of patient's surgery can be found in operative report. Patient tolerated the procedure well and was subsequently transported to orthopedic floor. Patient's orthopeidc and medical care was provided daily. Patient had daily laboratory tests performed for evaluation of overall blood counts. Patient had daily physical therapy to include strengthening range of motion as well as education with walker ambulation. Patient had daily CPM usage as part of their physical therapy program. Patient was treated with Lovenox for their postoperative DVT prophylaxis during their inpatient stay. Patient was noted to have a relatively uneventful postoperative course. Patient reported satisfactory pain control with oral pain medications by postoperative day 0. Patient showed satisfactory progress with physical therapy. Patient moved steadily through the program and had no difficulty meeting the goals by postoperative day 1. Given patient's otherwise satisfactory course and having met physical therapy goals, plan is to discharge patient home on postoperative day 1. Discharge condition/disposition: Patient will be discharged home in stable condition. Discharge medications: Instructions are given on resumption of patient's normal daily medications per primary care recommendation, in addition patient will be prescribed [place] 5 mg/325 mg, Colace 100 mg, aspirin 81 mg. Discharge instructions: 1. Wound care and infection precautions, keep incision dry and covered while showering, no lotions, creams, moisturizers. No soaking, tubs, pools, hottubs. Do not scrub over the incision. 2. Weight-bear as tolerated with walker / cane until follow-up. 3. Ice and elevate when necessary. Do not exceed 20 minutes per hour with ice pack. 4. Utilize compression sleeve until seen at first follow up appointment. 5. Visiting nursing care. 6. Home physical therapy including home CPM. 7. Pain meds and anticoagulants per prescription. 8. Pain medication has potential to cause constipation. Increase oral fluid and fiber intake. Contact primary care provider if you have not had a bowel movement within 48 hours after discharge 9. No anti-inflammatory medication until discussed at first post operative visit, this including Motrin, Aleve, Mobic, Diclofenac. 10. Follow up in office at 2 weeks postop with Shen George PA-C 11. Follow up with your primary care doctor 7-10 days after discharge. 12. Contact [facility] with any questions, . Procedures: Right total knee arthroplasty Patient Condition at Discharge: Good Plan - Discharge Summary Discharge Rx Participant: No New Discharge Prescriptions: New Aspirin [Adult Low Dose Aspirin EC] 81 mg PO BID #60 tablet. Docusate [Colace] 100 mg PO DAILY #30 capsule Hydrocodone/Acetaminophen [[place] 5-325] 1 - 2 each PO Q6HR PRN #40 tab PRN Reason: Pain No Action Cholecalciferol [Vitamin D3 (25 Mcg = 1000 Iu)] 2,000 unit PO DAILY Insulin Detemir [Levemir Flextouch] 38 unit SQ HS Torsemide [Demadex] 10 mg PO QAM Omeprazole [PriLOSEC] 20 mg PO QAM Insulin Aspart [NovoLOG Flexpen] See Protocol SQ AC-TID PRN PRN Reason: blood sugar high Pravastatin Sodium [Pravachol] 40 mg PO HS predniSONE 10 mg PO QAM Allopurinol [Zyloprim] 100 mg PO PC-SUPPER Carvedilol [Coreg] 6.25 mg PO BID amLODIPine [Norvasc] 10 mg PO QAM Levothyroxine Sodium [Synthroid] 25 mcg PO QAM predniSONE 5 mg PO QAM Discharge Medication List Cholecalciferol [Vitamin D3 (25 Mcg = 1000 Iu)] 2,000 unit PO DAILY 09/23/17 [History] Insulin Aspart [NovoLOG Flexpen] See Protocol SQ AC-TID PRN 11/24/18 [History] Insulin Detemir [Levemir Flextouch] 38 unit SQ HS 11/24/18 [History] Omeprazole [PriLOSEC] 20 mg PO QAM 11/24/18 [History] Torsemide [Demadex] 10 mg PO QAM 11/24/18 [History] Pravastatin Sodium [Pravachol] 40 mg PO HS 02/27/19 [History] predniSONE 10 mg PO QAM 10/06/19 [History] Allopurinol [Zyloprim] 100 mg PO PC-SUPPER 10/09/19 [History] Carvedilol [Coreg] 6.25 mg PO BID 11/30/19 [History] Levothyroxine Sodium [Synthroid] 25 mcg PO QAM 12/11/19 [History] amLODIPine [Norvasc] 10 mg PO QAM 12/11/19 [History] predniSONE 5 mg PO QAM 01/12/20 [History] Aspirin [Adult Low Dose Aspirin EC] 81 mg PO BID #60 tablet. 01/19/20 [Rx] Docusate [Colace] 100 mg PO DAILY #30 capsule 01/19/20 [Rx] Hydrocodone/Acetaminophen [[place] 5-325] 1 - 2 each PO Q6HR PRN #40 tab 01/19/20 [Rx] Follow up Appointment(s)/Referral(s): [facility],Equipment [NON-STAFF] - As Needed (Continuous Passive Motion knee machine) [facility], [NON-STAFF] - As Needed Michael George PAC [PHYSICIAN AIR COMPRESSOR ENGINEER] - 02/03/20 3:00 pm Kenyon Chaudhary MD [Primary Care Provider] - 01/28/20 9:45 am Activity/Diet/Wound Care/Special Instructions: Orthopedic Discharge Instructions: 1. Wound care and infection precautions, keep incision dry and covered while showering, no lotions, creams, moisturizers. No soaking, pools, hot tubs. Do not scrub over incision. 2. Weight-bear as tolerated with walker / cane until follow-up. 3. Ice and elevate when necessary. Do not exceed 20 minutes per hour with ice pack. 4. Utilize compression sleeve until seen at first follow up appointment. 5. Pain meds and anticoagulants per prescription. 6. Pain medication has potential to cause constipation. Increase oral fluid and fiber intake. Contact primary care provider if you have not had a bowel movement within 48 hours after discharge. 7. No anti-inflammatory medication until discussed at first post operative vis it, this including Motrin, Aleve, Mobic, Diclofenac. 8. Follow up in office at 2 weeks postop with Shen George PA-C 9. Follow up with your primary care doctor 7-10 days after discharge. 10. Contact [facility] with any questions, . Discharge Disposition: HOME WITH HOME HEALTH SERVICES
--- NOTE | 2020-01-19 13:50 | P.PN ---
Subjective Progress Note Date: 01/19/20 This is a 79-year-old male with a known history of hypertension, diabetes mellitus, hypothyroidism, ischemic cardiomyopathy with AICD, chronic kidney disease stage III, CVA, hyperlipidemia, lymphocytic leukemia, rheumatoid arthritis. Patient presents to the hospital for right total knee arthroplasty with Dr. Hernandez. We have been consulted for medical management. Prior to the procedure patient did have some nausea. Apparently he did have one episode of emesis that was clearish in color. And Phenergan has also been given. Zofran is also on board. Patient denies any abdominal pain or any bowel movement changes. He denies any chest pain or shortness of breath. He reports the nausea is improved. He denies any burning with urination. 01/19/2020 patient is postop day #1 status post right total knee arthroplasty. Patient tolerated surgery well. He's been up and ambulating with physical therapy. He reports that his pain is controlled. Orthopedics have cleared him for discharge. He denies any chest pain or shortness of breath. He denies any nausea or vomiting. He reports passing gas no bowel movement yet. Denies any difficulty urinating. Potassium is 5.4 patient received Kayexalate. Patient's hemoglobin is 10.2. Creatinine is 1.81. Patient has known chronic kidney disease. Has known iron deficiency anemia. WBC 22.7 likely relation to patient's prednisone and leukemia Objective - Vital Signs Vital signs: Vital Signs Temp 97.9 F 01/19/20 07:00 Pulse 71 01/19/20 08:00 Resp 18 01/19/20 08:00 BP 129/52 01/19/20 07:00 Pulse Ox 91 L 01/19/20 07:00 Intake & Output 01/18/20 01/19/20 01/19/20 18:59 06:59 18:59 Intake Total 1551 Output Total 35 250 Balance 1516 -250 Weight 92 kg Intake: IV 1551 Output: Urine 250 Estimated Blood Loss 35 Other: # Voids 1 - Exam Head normocephalic Neck supple Lungs clear to auscultation bilaterally no wheezing or crackles Heart regular rate and rhythm S1-S2, no rub or gallop Abdomen is soft nontender nondistended positive bowel sounds no hepatosplenomegaly Extremities no edema bilaterally. Right calf soft nontender Neuro alert and orientated to 3 - Labs CBC & Chem 7: 01/19/20 07:15 01/19/20 07:15 Labs: Abnormal Lab Results - Last 24 Hours (Table) 01/18/20 01/18/20 01/19/20 Range/Units 16:54 20:02 07:06 WBC (3.8-10.6) k/uL RBC (4.30-5.90) m/uL Hgb (13.0-17.5) gm/dL Hct (39.0-53.0) % Neutrophils # (1.3-7.7) k/uL Monocytes # (0-1.0) k/uL Potassium (3.5-5.1) mmol/L BUN (9-20) mg/dL Creatinine (0.66-1.25) mg/dL Glucose (74-99) mg/dL POC Glucose (mg/dL) 213 H 304 H 212 H (75-99) mg/dL Total Bilirubin (0.2-1.3) mg/dL Total Protein (6.3-8.2) g/dL Albumin (3.5-5.0) g/dL 01/19/20 01/19/20 01/19/20 Range/Units 07:15 07:15 11:54 WBC 22.7 H (3.8-10.6) k/uL RBC 3.78 L (4.30-5.90) m/uL Hgb 10.2 L (13.0-17.5) gm/dL Hct 32.8 L (39.0-53.0) % Neutrophils # 18.0 H (1.3-7.7) k/uL Monocytes # 1.4 H (0-1.0) k/uL Potassium 5.4 H (3.5-5.1) mmol/L BUN 33 H (9-20) mg/dL Creatinine 1.81 H (0.66-1.25) mg/dL Glucose 225 H (74-99) mg/dL POC Glucose (mg/dL) 72 L (75-99) mg/dL Total Bilirubin 0.1 L (0.2-1.3) mg/dL Total Protein 5.7 L (6.3-8.2) g/dL Albumin 3.2 L (3.5-5.0) g/dL Assessment and Plan Assessment: 1. Osteoarthritis status post Right total knee arthroplasty with Dr. Hernandez. Estimated blood loss 35 mL. orthopedics recommending aspirin 81 mg twice a day for DVT prophylaxis 2. Diabetes mellitus insulin-dependent: Resume patient's Levemir and scheduled NovoLog. Patient did have some elevated blood sugars. Currently on Levemir 38 units. He usually takes 40 units at home. Recommend that he continues his home insulin at time of discharge 3. History of chronic kidney disease stage III. We'll continue to monitor kidney functions closely. We will discontinue the Mobic to avoid any kidney injury. 4. Chronic lymphocytic leukemia 5. History of CVA 6. History of COPD stable 7. History of rheumatoid arthritis on chronic prednisone. 8. History of ischemic cardiacmyopathy status post AICD 9. Hyperlipidemia: Continue Pravachol 10. Hypothyroidism resume Synthroid 11. Leukocytosis secondary to prednisone and leukemia 12. Hyperkalemia potassium 5.4. Patient received Kayexalate today. Recommend low potassium diet. Repeat BMP in 1 week 13. Anemia likely expected acute blood loss anemia due to surgery. Patient also has a history of chronic iron deficiency anemia and likely anemia due to chronic kidney disease. We'll place patient on iron supplement twice a day. Repeat CBC in 1 week. Patient is medical stable for discharge. We'll have him follow up with Dr. Chaudhary in 1 week. Recommend checking CBC and BMP in 1 week I performed an examination of the patient and discussed their management with the physician Telephone Advice Nurse. I have reviewed the Physician Telephone Advice Nurse's notes and agree with the documented findings and plan of care
[2020-01-19 14:02] LABS: Hemoglobin A1C 7.4 % (4.0-6.0)
== END 2020-01-19 14:53 | disposition home health service (06) ==
LOC: OR 08:19 → 4SSUR 12:06 → OR 01-19 14:53
PROVIDERS: ATTEND Orthopaedic Surgery
DX: M17.11 Unilateral primary osteoarthritis, right knee (principal); I47.1 Supraventricular tachycardia; I42.0 Dilated cardiomyopathy; R06.00 Dyspnea, unspecified; R00.2 Palpitations; E78.5 Hyperlipidemia, unspecified; I12.9 Hypertensive chronic kidney disease with stage 1 through stage 4 chronic kidney disease, or unspecified chronic kidney disease; E11.22 Type 2 diabetes mellitus with diabetic chronic kidney disease; N18.3 Chronic kidney disease, stage 3 (moderate); Z87.891 Personal history of nicotine dependence; Z79.4 Long term (current) use of insulin; E03.9 Hypothyroidism, unspecified; I44.2 Atrioventricular block, complete; Z95.810 Presence of automatic (implantable) cardiac defibrillator; M06.9 Rheumatoid arthritis, unspecified; M05.10 Rheumatoid lung disease with rheumatoid arthritis of unspecified site; J44.9 Chronic obstructive pulmonary disease, unspecified; I35.1 Nonrheumatic aortic (valve) insufficiency; I38 Endocarditis, valve unspecified; I42.8 Other cardiomyopathies; M10.9 Gout, unspecified; I25.10 Atherosclerotic heart disease of native coronary artery without angina pectoris; K21.9 Gastro-esophageal reflux disease without esophagitis; K44.9 Diaphragmatic hernia without obstruction or gangrene; Z86.73 Personal history of transient ischemic attack (TIA), and cerebral infarction without residual deficits; Z85.6 Personal history of leukemia; Z87.01 Personal history of pneumonia (recurrent); G89.29 Other chronic pain; M54.9 Dorsalgia, unspecified; D72.829 Elevated white blood cell count, unspecified; Z98.49 Cataract extraction status, unspecified eye; Z98.890 Other specified postprocedural states; Z79.82 Long term (current) use of aspirin; Z79.890 Hormone replacement therapy; Z79.891 Long term (current) use of opiate analgesic; Z79.52 Long term (current) use of systemic steroids; Z79.899 Other long term (current) drug therapy; Z88.1 Allergy status to other antibiotic agents; Z91.041 Radiographic dye allergy status; Z88.0 Allergy status to penicillin; Z91.013 Allergy to seafood; Z88.8 Allergy status to other drugs, medicaments and biological substances; Z91.048 Other nonmedicinal substance allergy status
CPT/HCPCS: 97161; 64448; 76942; 80053; 85025; 88300; 83036; 73560; 27447; C1776; C1713; J2250; J0171; J1100; J2550; J0690 ×3; J2405; J2001; J3010; J1885; J1650; J1170; J2795 ×2; J2370; J0330; J2704; J0735; J7512 ×2

== ENCOUNTER → 2020-02-01 | Outpatient (CLI) | payer MEDICARE, BC ==
[2020-02-01 14:05] VITALS: BP 129/68; PULSE 67; RESP 16
--- NOTE | 2020-02-01 14:56 | P.PN ---
Progress Note - Text Progress Note Date: 02/01/20 Progress Note Date: 01/29/2020 Patient resents for follow-up visit status post bilateral lumbar radio frequency ablation of the L3-L4, L4-L5, L5-S1 facet joints bilaterally. He denies any improvement from the radiofrequency ablations. He still complaining of low back pain radiating across his low back and upper buttock. He's had a history of multiple lumbar laminectomies without instrumentation. Pain is mostly on the right and upper buttock sometimes radiating into the lateral aspect of the hip. He states is worse with walking and standing for long periods and improved with rest. He denies any neurogenic claudication signs or symptoms, or any radicular symptoms. He denies any pain with flexion or extension of the lumbar spine which is very well preserved. He most recently had a right total knee arthroplasty with Dr. Hernandez and is recovering well. He denies any bowel bladder incontinence or saddle anesthesia. Physical Exam Vitals: Reviewed in EMR GENERAL: Well appearing, in no acute distress PSYCH: Mood and affect is appropriate. Awake, alert, and oriented SKIN: Skin color, texture, turgor normal, no rashes or lesions HEENT: Normocephalic, atraumatic. EOM intact CV: No pedal edema RESP: Respirations are unlabored, no audible wheezing GI: Abdomen non-distended MUSCULOSKELETAL: Bilateral lower extremity strength is normal and symmetric. No atrophy or tone abnormalities are noted. Lumbar spine: Straight leg raising in the sitting position is negative for radicular pain. No pain to palpation over the lumbar spine and paraspinous muscles. Normal flexion and extension. He does endorse pain with external rotation and flexion of the right leg more so than the left. There is tenderness to palpation along the sacroiliac joint on the right greater than left.. Extremities: Peripheral joint ROM is full and pain free without obvious instability or laxity in all four extremities. No edema or skin discolorations noted. Gait: Gait is slow NEUR: Bilateral lower extremity coordination and muscle stretch reflexes are physiologic and symmetric. No loss of sensation is noted. Results Labs: MRI of the lumbar spine done at [facility] at 09/14/2019 multilevel lumbar degenerative disc disease and moderate central canal stenosis and hypertrophic facet joint arthropathy at L3 4 L4 5 and L5-S1 and history of laminectomy and bilateral neuroforaminal narrowing at L3-4 ,L4 5 and L5-S1 Assessment and Plan 1. Failed back surgery syndrome lumbar area. 2. Lumbar spondylosis with lumbar facet arthropathy. 3. Lumbosacral spondylosis. 4. Sacroiliac joint dysfunction, bilateral Plan: 1. We'll schedule patient for bilateral sacroiliac joint injection. He does have significant tenderness to palpation along right SI joint. Did not receive significant relief with radio frequency ablation bilaterally. 2. Discussed the risks and benefits of the procedure with patient detail. They're include but not limited to infection, bleeding/hematoma, rare nerve injury, not receiving benefit from the procedure, making the pain slightly worse. Patient wishes to proceed knowing these risks. PQRS Measure Charge Sheet Measure #130: Documentation of Current Meds in Medical Chart: Patient's medications documented in chart Measure #226: Tobacco Use: Screen & Cessation Intervention: Pt not a tobacco user Measure #111: Pneumonia Vaccination: Pneumococcal vaccine administered or previously received Measure #47: Advance Care Plan: Advance care planning discussed & documented, pt chose/unable to give Measure #412: Opioid Treatment Agreement: No documentation of signed opioid treatment agreement Measure #408: Opioid Therapy Follow-up Evaluation: Patient had NO f/u eval minimum every 3 months during opioid therapy Measure #317: Preventitive Care & Scrn High Bld Press & F/U: Pre-hypertensive or hypertensive BP documented, pt will f/u with PCP Measure #128: Body Mass Index (BMI) Screening & Follow-up: BMI documented ABOVE normal parameters - f/u documented Measure #131: Pain Assessment & Follow-up: Pain positive & plan documented, Follow-up scheduled Measure #431: Unhealthy Alcohol Use Preventative Care & Scrn: Patient not identified as an unhealthy alcohol user PQRS Measure Charge Sheet PQRS Narrative: Smoking Status Former smoker Pain Intensity [Left Lower 10 Back] Home Medications: Ambulatory Orders Cholecalciferol [Vitamin D3 (25 Mcg = 1000 Iu)] 2,000 unit PO DAILY 09/23/17 Aspirin EC [Ecotrin Low Dose] 81 mg PO DAILY #0 05/09/18 Insulin Aspart [NovoLOG Flexpen] See Protocol SQ AC-TID PRN 11/24/18 Insulin Detemir [Levemir Flextouch] 36 unit SQ HS 11/24/18 Omeprazole [PriLOSEC] 20 mg PO DAILY 11/24/18 Torsemide [Demadex] 10 mg PO DAILY 11/24/18 Pravastatin Sodium [Pravachol] 40 mg PO HS 02/27/19 Albuterol Sulfate [Proventil Hfa] 2 puff INHALATION Q6HR PRN 30 Days #1 inhaler 03/01/19 predniSONE 10 mg PO DAILY 10/06/19 Allopurinol [Zyloprim] 100 mg PO DAILY 10/09/19 Acetaminophen Tab [Tylenol Tab] 500 mg PO TID PRN 10/21/19 amLODIPine [Norvasc] 10 mg PO DAILY 10/21/19 traMADol HCL [Ultram] 50 mg PO TID PRN 10/21/19 Carvedilol [Coreg] 6.25 mg PO BID 11/30/19 HYDROcodone/APAP 7.5-325MG [[place] 7.5-325] 1 tab PO Q6HR PRN 11/30/19
== END | disposition home or self-care (01) ==
LOC: PNWHC3 13:17
PROVIDERS: ATTEND Internal Medicine Cardiovascular Disease
DX: M47.816 Spondylosis without myelopathy or radiculopathy, lumbar region (principal); M47.817 Spondylosis without myelopathy or radiculopathy, lumbosacral region; M96.1 Postlaminectomy syndrome, not elsewhere classified; M53.3 Sacrococcygeal disorders, not elsewhere classified; Z87.891 Personal history of nicotine dependence; Z79.82 Long term (current) use of aspirin; Z79.4 Long term (current) use of insulin; Z79.52 Long term (current) use of systemic steroids; Z79.891 Long term (current) use of opiate analgesic; Z79.899 Other long term (current) drug therapy
CPT/HCPCS: 99211

== ENCOUNTER 2020-02-09 06:50 | Day surgery (SDC) | payer MEDICARE, BC ==
[~2020-02-09 06:50] MED LIST changes: -ACETAMINOPHEN TAB 500 MG TAB PO ONE; -HYDROmorphone 0.5 MG/0.5 ML SYRINGE IVP PRN; +LACTATED RINGERS 1,000 ML IV SCH; -LIDOCAINE 1% 20 ML VIAL (10MG/ML) FOR IV START INTRADERMA PRN; -MELOXICAM 7.5 MG TAB PO ONE; -MIDAZOLAM 2 MG/2 ML VIAL IV PRN; -TRANEXAMIC ACID 1,000 MG in SODIUM CHLORIDE 0.9% 100 ML IVPB ONE; -fentaNYL (PF) 50 MCG/ML 2 ML AMP IVP PRN
[2020-02-09 07:41] VITALS: TEMP 97.5
[2020-02-09 07:48] LABS: Glucose,Whole Blood 91 mg/dL (75-99)
[2020-02-09] MEDS ORDERED: ROPIVACAINE 5MG/ML 20ML VIAL ONE (08:17)
[2020-02-09] MEDS ORDERED: methylPREDNISolone ACETATE 40 MG/ML 1 ML VIAL ONE (08:17)
--- NOTE | 2020-02-09 08:28 | P.PCN ---
Date of Procedure: 02/09/20 Surgeon: Wilmer Lemons Pathology: none sent Condition: stable Disposition: PACU Description of Procedure: Preoperative diagnoses= sacroiliac joint dysfunction and sacroiliitis bilateral ly Postoperative diagnoses= same as preoperative diagnosis. Procedure= sacroiliac joint steroid injection under fluoroscopic guidance. Anesthesia= local anesthesia with lidocaine 1% Estimated blood loss=minimal. Procedure indication= the patient had a history of severe chronic low back pain, diagnosed with sacroiliitis and lumbar sacral facet arthropathy unresponsive to conservative treatment. Procedure description= the patient was seen and identified in the preoperative holding area, risks and benefits and alternative of the procedure and possible complications discussed with the patient, patient signed the consent. an IV was started, and vital signs were monitored and were stable throughout the procedure, patient was placed in the prone position or table and the lumbosacral area was prepped and draped with a sterile fashion, vital signs were closely monitored during the procedure.The sacroiliac joint was identified on the AP view of fluoroscopy then the C-arm was tilted to the contralateral oblique position to superimpose the anterior and posterior joint lines on each other and to have a unified joint line with the target point at the inferior one third of this line. I used 22-gauge 3-1/2 inch Quincke spinal needle for this procedure and after getting into the sacroiliac joint I injected 20 mg of Kenalog +2 MLS of Ropivacaine 0.5%. The same procedure was repeated on the contralateral side. Patient tolerated the procedure well without any complication, The patient returned to supine position after the back was cleaned and a Band- Aid applied, the patient transported to recovery room in stable condition and he was monitored for 30 minutes before he was discharged home and then patient was reexamined before going home and patient was discharged in stable condition and patient will follow up with the pain clinic in a few weeks
[2020-02-09 08:42] VITALS: RESP 20
[2020-02-09 08:45] LABS: Glucose,Whole Blood 87 mg/dL (75-99)
--- NOTE | 2020-02-09 08:48 | FL ---
EXAMINATION TYPE: FL guided pain mgmt statistic DATE OF EXAM: 02/09/2020 CLINICAL HISTORY: Bilateral sacroiliac joint pain. TECHNIQUE: Fluoroscopy. COMPARISON: None. FINDINGS: Fluoroscopic guidance was provided during pain relief procedure performed by Dr. Lemons. A total of 17 seconds of fluoroscopic time was utilized during the procedure and two spot images are acquired. Images acquired shows needle localization over the bilateral sacroiliac joints. IMPRESSION: As Above.
[2020-02-09 08:56] VITALS: BP 142/65; PULSE 65
== END 2020-02-09 09:04 | disposition home or self-care (01) ==
LOC: ORPAIN 06:50
PROVIDERS: ATTEND Anesthesiology
DX: G89.29 Other chronic pain (principal); M46.1 Sacroiliitis, not elsewhere classified; M53.3 Sacrococcygeal disorders, not elsewhere classified; I10 Essential (primary) hypertension; I25.10 Atherosclerotic heart disease of native coronary artery without angina pectoris; E11.9 Type 2 diabetes mellitus without complications; Z91.041 Radiographic dye allergy status; Z88.1 Allergy status to other antibiotic agents; Z88.8 Allergy status to other drugs, medicaments and biological substances; Z88.0 Allergy status to penicillin; Z95.0 Presence of cardiac pacemaker
CPT/HCPCS: J1030; J2795; G0260

== ENCOUNTER 2020-02-24 07:21 | Day surgery (SDC) | payer MEDICARE, BC ==
[2020-02-23 13:32] VITALS: BMI 27.8
--- NOTE | 2020-02-23 13:43 | HP ---
HISTORY AND PHYSICAL Surgery scheduled for 02/24/2020. Mark Diaz is an 80-year-old patient who had undergone right total knee arthroplasty on 01/18/2020, injured his right knee several days ago. He states that he was pushing down, scooting in a chair when felt a pop in the knee. He states since that point, he is unable to extend his knee and has significant pain and swelling. He denies any fevers or chills. PAST MEDICAL HISTORY: Insulin-dependent diabetes, hypertension, hyperlipidemia, hypothyroidism. PAST SURGICAL HISTORY: Lumbar spine surgeries. DAILY MEDICATIONS: 1. Allopurinol. 2. Aspirin. 3. Carvedilol. 4. Levothyroxine. 5. NovoLog. 6. Omeprazole. 7. Pravastatin. ALLERGIES: None reported. SOCIAL HISTORY: He denies current tobacco use. PHYSICAL EXAMINATION: Physical evaluation of the right knee: His range of motion is -25 to 85. He has a mild effusion. There is no obvious palpable defect to the medial retinaculum and distal quadriceps tendon. The patient is unable to extend his knee when he tries to extend the knee. It visually subluxes the patella. His collateral ligaments are stable. His incision is well healed. There is no evidence for erythema or infective process. RADIOGRAPHS: Radiographs of the right knee reveal a stable appearing right total knee arthroplasty. IMPRESSION: 1. Right knee medial retinacular/quadriceps tendon tear. 2. History of right total knee arthroplasty. 3. Insulin-dependent diabetes. 4. Hypertension. 5. Hyperlipidemia. PLAN: Right knee open quadriceps tendon and medial retinacular repair. MMODL / IJN: [id number] /
[2020-02-24 08:13] LABS: Glucose,Whole Blood 131 mg/dL (75-99)
[2020-02-24] MEDS: LACTATED RINGERS 1,000 ML IV SCH (08:15)
[2020-02-24] MEDS ORDERED: ONDANSETRON 4 MG/2 ML VIAL IVP ONE (08:16)
[2020-02-24] MEDS ORDERED: HYDROCORTISONE SUCCINATE 100 MG/2 ML VIAL IVP ONE (08:16)
[2020-02-24] MEDS ORDERED: DEXAMETHASONE SOD PHOSPHATE 10 MG/ML 1 ML VIAL IV ONE (08:17)
[2020-02-24 08:37] LABS: Basophils % (A) 0 %; Eosinophils # (A) 0.5 k/uL (0-0.7); Eosinophils % (A) 2 %; HCT 38.7 % (39.0-53.0); HGB 12.7 gm/dL (13.0-17.5); Lymphocytes # (A) 6.5 k/uL (1.0-4.8); Lymphocytes % (A) 28 %; MCH 28.3 pg (25.0-35.0); MCHC 32.7 g/dL (31.0-37.0); MCV 86.5 fL (80.0-100.0); Mean Platelet Volume 7.9; Monocytes # (A) 1.1 k/uL (0-1.0); Monocytes % (A) 5 %; Neutrophils # (A) 14.6 k/uL (1.3-7.7); Neutrophils % (A) 63 %; Platelet Count 369 k/uL (150-450); RBC 4.48 m/uL (4.30-5.90); RDW 15.1 % (11.5-15.5)
[2020-02-24 08:44] LABS: Calcium 9.1 mg/dL (8.4-10.2); Potassium 4.9 mmol/L (3.5-5.1)
[2020-02-24] MEDS ORDERED: LIDOCAINE 1% INJ 10MG/ML (20 ML MDV) ONE (08:48)
[2020-02-24] MEDS ORDERED: PROPOFOL 10 MG/ML 20 ML VIAL IV ONE (08:48)
[2020-02-24] MEDS ORDERED: MIDAZOLAM 2 MG/2 ML VIAL ONE (08:48)
[2020-02-24] MEDS ORDERED: fentaNYL (PF) 50 MCG/ML 2 ML AMP ONE (08:48)
[2020-02-24 08:55] LABS: WBC 23.1 k/uL (3.8-10.6)
[2020-02-24] MEDS ORDERED: ONDANSETRON 4 MG/2 ML VIAL IVP PRN (10:02)
[2020-02-24] MEDS ORDERED: ACETAMINOPHEN TAB 325 MG TAB PO PRN (10:02)
[2020-02-24] MEDS ORDERED: HYDROcodone/APAP 5-325MG 1 EACH TAB PO PRN (10:02)
[2020-02-24] MEDS ORDERED: traMADol 50 MG TAB PO PRN (10:02)
[2020-02-24] MEDS ORDERED: MAGNESIUM HYDROXIDE 2,400 MG/10 ML CUP PO PRN (10:02)
[2020-02-24] MEDS ORDERED: NALOXONE 0.4 MG/ML 1 ML VIAL IV PRN (10:02)
[2020-02-24] MEDS: HYDROmorphone 0.5 MG/0.5 ML SYRINGE IVP PRN ×4 (10:03→19:40)
--- NOTE | 2020-02-24 10:03 | P.OP ---
Date of Procedure: 02/24/20 Preoperative Diagnosis: Right knee quadriceps tendon/medial retinacular tear Postoperative Diagnosis: Right knee quadriceps tendon/medial retinacular tear Procedure(s) Performed: Open repair right knee quadriceps tendon and medial retinacular tear Implants: None Anesthesia: JAJA Surgeon: Steve Hernandez Interior Mechanic #1: Michael George Estimated Blood Loss (ml): 15 Pathology: none sent Condition: stable Disposition: PACU Indications for Procedure: 80-year-old patient who had undergone right total knee arthroplasty approximately 1 month ago injured his right knee with resultant clinical tear of the medial retinaculum and quadriceps tendon. I recommended open repair. Patient was agreeable and consent was obtained. Operative Findings: see description of procedure Description of Procedure: Patient was taken to the operative suite. Patient received preoperative IV antibiotics. The patient underwent a general anesthetic by the department of anesthesia. A well-padded tourniquet was now placed along the proximal right lower extremity. The right lower extremity was prepped and draped in the normal sterile orthopedic fashion. The extremity was elevated and tourniquet insufflated to 300. I now made an incision through the previous cicatrix sharply through skin. We immediately encountered a hemarthrosis which was evacuated. There was complete tear of the medial retinaculum and a tear along the medial aspect of the quadriceps tendon. All residual suture material was removed. We irrigated the joint and wound with pulse lavage mechanical irrigation. We now repaired the medial retinaculum and quadriceps tendon utilizing several #3 Ethibond sutures followed by a generous amount of #3 Vicryl sutures. I now tested the repair with full range of motion of the knee where a good solid repair. We irrigated the subcu soft tissues. The subcutaneous soft tissues and our repaired with 2-0 Vicryl. The skin was repaired with skin chad. The tourniquet was released with immediate capillary refill noted. Sterile dressings were applied. The extremity was placed into a knee immobilizer. The patient was awakened, transferred to a bed and taken recovery in stable condition. Shen TITUS assisted with the procedure.
[2020-02-24] MEDS ORDERED: diphenhydrAMINE 50 MG/ML 1 ML VIAL IVP ONE (10:08)
[2020-02-24 10:11] LABS: Glucose,Whole Blood 165 mg/dL (75-99)
[2020-02-24] MEDS: fentaNYL (PF) 50 MCG/ML 2 ML AMP IVP ONE ×4 (10:27→10:55)
[2020-02-24] MEDS ORDERED: SODIUM CHLORIDE 0.9% 1,000 ML IV ONE ×2 (10:35)
[2020-02-24 11:39] LABS: Glucose,Whole Blood 214 mg/dL (75-99)
[2020-02-24] MEDS: PANTOPRAZOLE 40 MG TABLET PO SCH (13:07)
[2020-02-24 13:09] VITALS: RESP 18
[2020-02-24] MEDS ORDERED: hydrALAZINE HCL 20 MG/ML 1 ML VIAL IVP PRN (15:06)
--- NOTE | 2020-02-24 15:06 | P.CONS ---
History of Present Illness - Reason for Consult Consult date: 02/24/20 Medical management while hospitalized - History of Present Illness Mark Diaz is an 80-year-old male well-known to my practice, with recent history of right total knee arthroplasty done on 01/18/2020 who sustained an injury to his right knee several days ago since then he has been and able to extend his knee and was having pain and swelling in the right knee. Patient was evaluated by Dr. Hernandez and decision was made to proceed with open right knee quadriceps tendon and medial retinacular tear repair. Patient has a known history of hypertension, insulin-dependent diabetes, hyperlipidemia, and history of hypothyroidism Past Medical History Past Medical History: CVA/TIA, Diabetes Mellitus, GERD/Reflux, Hyperlipidemia, Hypertension, Pneumonia, Rheumatoid Arthritis (RA), Thyroid Disorder Additional Past Medical History / Comment(s): Interstitial lung disease/rheumatoid lung, gout, CVA in 2005- no residual effects, hiatal hernia; bronchitis, states "had [place] virus and possibly lymes disease". chronic back pain, SOB, History of Any Multi-Drug Resistant Organisms: None Reported Past Surgical History: AICD, Appendectomy, Back Surgery, Heart Catheterization, Joint Replacement, Tonsillectomy Additional Past Surgical History / Comment(s): Biventricular AICD placement, battery change r/t recall, back surgery 6, colonoscopy, past hx of pain clinic procedure, cataract sx, Oral sx "to smooth down bones in mouth" RIGHT TOTAL KNEE Past Anesthesia/Blood Transfusion Reactions: No Reported Reaction Additional Past Anesthesia/Blood Transfusion Reaction / Comm: blood transfusion- no reaction, BP was high when came in for his 1st pain procedure-procedure was canceled- states no problem since. Type of Cardiac Device: AICD Device Placement Date:: 2016 Smoking Status: Former smoker - Past Family History Father History Unknown: Yes Additional Family Medical History / Comment(s): Father was healthy and lived to be 88yrs old. Mother Family Medical History: Hyperlipidemia, Hypertension, Myocardial Infarction ([place]) Additional Family Medical History / Comment(s): . Medications and Allergies Home Medications Medication Instructions Recorded Confirmed Type Cholecalciferol [Vitamin D3 (25 2,000 unit PO DAILY 09/23/17 02/24/20 History Mcg = 1000 Iu)] Insulin Aspart [NovoLOG Flexpen] See Protocol SQ AC-TID PRN 11/24/18 02/24/20 History Omeprazole [PriLOSEC] 20 mg PO QAM 11/24/18 02/24/20 History Torsemide [Demadex] 10 mg PO QAM 11/24/18 02/24/20 History Pravastatin Sodium [Pravachol] 40 mg PO HS 02/27/19 02/24/20 History predniSONE 10 mg PO QAM 10/06/19 02/24/20 History Allopurinol [Zyloprim] 100 mg PO PC-SUPPER 10/09/19 02/24/20 History Carvedilol [Coreg] 6.25 mg PO BID 11/30/19 02/24/20 History Levothyroxine Sodium [Synthroid] 25 mcg PO QAM 12/11/19 02/24/20 History amLODIPine [Norvasc] 10 mg PO QAM 12/11/19 02/24/20 History Aspirin [Adult Low Dose Aspirin EC] 81 mg PO BID #60 tablet. 01/19/20 02/24/20 Rx Insulin Detemir [Levemir Flextouch] 36 unit SQ HS 02/23/20 02/24/20 History Allergies Allergy/AdvReac Type Severity Reaction Status Date / Time amlodipine Allergy Swelling Verified 02/24/20 07:54 doxycycline Allergy Anaphylaxis Verified 02/24/20 07:54 Iodinated Contrast Media Allergy Anaphylaxis Verified 02/24/20 07:54 [Iodinated Contrast- Oral and IV Dye] iodine Allergy Anaphylaxis Verified 02/24/20 07:54 metronidazole [From Flagyl] Allergy Rash/Hives Verified 02/24/20 07:54 shrimp Allergy Rash/Hives Verified 02/24/20 07:54 acarbose AdvReac Abdominal Verified 02/24/20 07:54 Pain adhesive tape AdvReac SKIN PULLS Verified 02/24/20 07:54 OFF " amoxicillin trihydrate AdvReac Nausea & Verified 02/24/20 07:54 [From Augmentin] Vomiting potassium clavulanate AdvReac Nausea & Verified 02/24/20 07:54 [From Augmentin] Vomiting Physical Exam Vitals: Vital Signs Temp Pulse Pulse Resp BP Pulse Ox 02/24/20 10:52 97.2 F L 60 16 167/70 94 L 02/24/20 10:43 61 16 170/74 98 04/01/20 10:28 60 16 175/79 97 02/24/20 10:13 60 16 183/80 100 02/24/20 09:58 97.7 F 60 16 183/81 98 02/24/20 08:12 98.1 F 71 18 166/77 98 Intake and Output 02/23/20 02/24/20 02/24/20 22:59 06:59 14:59 Intake Total 1125 Output Total 15 Balance 1110 Intake: IV 1125 Output: Estimated Blood Loss 15 Other: Weight 89.81 kg In general patient is alert and oriented 3 in no apparent distress HEENT head normocephalic and atraumatic Neck is supple no JVD no goiter no lymphadenopathy Chest exam reveals a few scattered crackles no wheezing Cardiac exam reveals regular heart sounds no gallops no murmurs Abdomen is soft nontender no organomegaly with normal bowel sounds Extremity exam reveals no edema no cyanosis or clubbing Neurological examination reveals no gross focal deficit Results CBC & Chem 7: 02/24/20 08:10 02/24/20 08:10 Labs: Abnormal Lab Results - Last 24 Hours (Table) 02/24/20 02/24/20 02/24/20 Range/Units 07:56 08:10 08:10 WBC 23.1 H (3.8-10.6) k/uL Hgb 12.7 L (13.0-17.5) gm/dL Hct 38.7 L (39.0-53.0) % Neutrophils # 14.6 H (1.3-7.7) k/uL Lymphocytes # 6.5 H (1.0-4.8) k/uL Monocytes # 1.1 H (0-1.0) k/uL BUN 36 H (9-20) mg/dL Creatinine 1.63 H (0.66-1.25) mg/dL Glucose 145 H (74-99) mg/dL POC Glucose (mg/dL) 131 H (75-99) mg/dL 02/24/20 02/24/20 Range/Units 10:05 11:38 WBC (3.8-10.6) k/uL Hgb (13.0-17.5) gm/dL Hct (39.0-53.0) % Neutrophils # (1.3-7.7) k/uL Lymphocytes # (1.0-4.8) k/uL Monocytes # (0-1.0) k/uL BUN (9-20) mg/dL Creatinine (0.66-1.25) mg/dL Glucose (74-99) mg/dL POC Glucose (mg/dL) 165 H 214 H (75-99) mg/dL Assessment and Plan Plan: 1. Knee injury status post recent total knee replacement, patient was admitted to the hospital by Dr. Hernandez and underwent open repair of the right knee quadriceps tendon and medial retinacular tear 2. Underlying history of hypertension will resume Coreg and give hydralazine when necessary for elevated blood pressure 3. Underlying history of diabetes mellitus will resume long-acting insulin and cover was a sliding scale 4. Pain management and DVT prophylaxis per orthopedic protocol, patient jhonathan nevarez on subcu Lovenox, aspirin, will add Protonix for GI prophylaxis
[2020-02-24 16:52] LABS: Glucose,Whole Blood 317 mg/dL (75-99)
[2020-02-24] MEDS: CARVEDILOL 6.25 MG TAB PO SCH (16:57)
[2020-02-24] MEDS ORDERED: MELATONIN 5 MG TABLET PO PRN (17:07)
[2020-02-24] MEDS: INSULIN ASPART (NovoLOG) 100 UNIT/ML VIAL SQ SCH ×2 (17:48→20:50)
[2020-02-24] MEDS ORDERED: ALLOPURINOL 100 MG TAB PO SCH (18:30)
[2020-02-24 20:21] LABS: Glucose,Whole Blood 299 mg/dL (75-99)
[2020-02-24] MEDS: HYDROcodone/APAP 5-325MG 1 EACH TAB PO PRN (20:50)
[2020-02-24] MEDS: ASPIRIN 81 MG PO SCH (20:50)
[2020-02-24] MEDS: ENOXAPARIN 30 MG/0.3 ML SYRINGE SQ SCH (20:51)
[2020-02-24] MEDS ORDERED: INSULIN DETEMIR (LEVEMIR) 100 UNIT/ML SYR SQ SCH (21:00)
[2020-02-24] MEDS ORDERED: SENNOSIDES-DOCUSATE SODIUM 1 EACH TAB PO SCH (21:00)
[2020-02-24] MEDS ORDERED: PRAVASTATIN SODIUM 40 MG TAB PO SCH (21:00)
[2020-02-25] MEDS: HYDROmorphone 0.5 MG/0.5 ML SYRINGE IVP PRN (00:40)
[2020-02-25] MEDS: LACTATED RINGERS 1,000 ML IV SCH (03:48)
[2020-02-25 04:56] VITALS: BP 140/57; PULSE 58; TEMP 97.8
[2020-02-25] MEDS: HYDROcodone/APAP 5-325MG 1 EACH TAB PO PRN (05:42)
[2020-02-25] MEDS ORDERED: LEVOTHYROXINE 25 MCG TAB PO SCH (06:30)
[2020-02-25 07:00] LABS: Glucose,Whole Blood 136 mg/dL (75-99)
[2020-02-25] MEDS: CARVEDILOL 6.25 MG TAB PO SCH (07:48)
[2020-02-25] MEDS: ENOXAPARIN 30 MG/0.3 ML SYRINGE SQ SCH (07:49)
[2020-02-25] MEDS: ASPIRIN 81 MG PO SCH (07:49)
[2020-02-25] MEDS: INSULIN ASPART (NovoLOG) 100 UNIT/ML VIAL SQ SCH (07:49)
[2020-02-25] MEDS: PANTOPRAZOLE 40 MG TABLET PO SCH (07:49)
[2020-02-25] MEDS ORDERED: predniSONE 10 MG TAB PO SCH (09:00)
[2020-02-25] MEDS ORDERED: FUROSEMIDE 20 MG TAB PO SCH (09:00)
[2020-02-25] MEDS ORDERED: CHOLECALCIFEROL 1,000 UNIT TAB PO SCH (09:00)
--- NOTE | 2020-02-25 09:57 | P.PN ---
Subjective Progress Note Date: 02/25/20 Principal diagnosis: Status post right knee quadriceps tendon/medial retinacular repair Patient evaluated today at bedside, he is resting comfortably. He notes some discomfort in the knee. It is controlled with current medication. Denies any chest pain, shortness of breath, fever or chills. Objective - Vital Signs Vital signs: Vital Signs Temp 97.8 F 02/25/20 04:55 Pulse 58 L 02/25/20 04:55 Resp 18 02/25/20 04:55 BP 140/57 02/25/20 04:55 Pulse Ox 95 02/25/20 04:55 Intake & Output 02/24/20 02/25/20 02/25/20 18:59 06:59 18:59 Intake Total 2425 500 Output Total 15 1050 Balance 2410 -550 Weight 89.81 kg Intake: IV 1125 Intake, IV Titration 100 500 Amount Lactated Ringers 1,000 ml 450 @ 50 mls/hr IV .[facility]H [facility] Rx#:[id number] ceFAZolin 2 gm In Sodium 50 Chloride 0.9% 50 ml @ 100 mls/hr IVPB ONCE ONE Rx# :[id number] ceFAZolin 2 gm In Sodium 50 50 Chloride 0.9% 50 ml @ 100 mls/hr IVPB Q8HR [facility] Rx# :[id number] Oral 1200 Output: Urine 1050 Estimated Blood Loss 15 Other: Voiding Method Urinal Urinal # Voids 2 1 - Exam Right lower extremity: Optifoam dressing intact, minimal soft tissue swelling and ecchymosis. Calf is soft, no tenderness with palpation. Plantar flexion, dorsiflexion, EHL, FHL are intact. Sensory exam light touch throughout extremities intact - Labs CBC & Chem 7: 02/24/20 08:10 02/24/20 08:10 Labs: Abnormal Lab Results - Last 24 Hours (Table) 02/24/20 02/24/20 02/24/20 Range/Units 10:05 11:38 16:51 POC Glucose (mg/dL) 165 H 214 H 317 H (75-99) mg/dL 02/24/20 02/25/20 Range/Units 20:19 06:58 POC Glucose (mg/dL) 299 H 136 H (75-99) mg/dL Assessment and Plan Plan: Assessment: Postoperative day 1 status post medial retinacular repair/quadriceps tendon repair right knee Plan: Pain control, [place] 5 mg/325 mg at discharge Wound care instructions were discussed Knee immobilizer will be worn at all times, discuss this with patient GI and DVT prophylaxis, aspirin 81 mg twice a day Activity level instructions are discussed Plan for follow-up in 2 weeks Time with Patient: Less than 30
--- NOTE | 2020-02-25 10:04 | P.DS ---
Providers Date of admission: 02/24/2020 Expected date of discharge: 02/25/20 Attending physician: Steve Hernandez Consults: 02/24/20 10:02 Consult Physician Routine Consulting Provider: Kenyon Chaudhary Reason/Comments: medical management Do you want consulting provider notified?: Yes Primary care physician: Kenyon Chaudhary [facility] Course: Date of admission: 02/24/2020 Date of discharge: 02/25/2020 Admission diagnosis: Status post open repair right knee medial retinaculum and quadriceps tendon Discharge diagnosis: Same Attending physician: Dr. Hernandez Surgical procedures: Open repair right knee medial retinaculum and quadriceps tendon Brief history: Patient is a 80-year-old male with a history of a previous right knee arthroplasty that was done about a month ago. He was evaluated in the outpatient setting a few days ago after he sustained an injury. It was determined clinically he had a medial retinaculum and quadriceps tendon repair, he was scheduled for surgery. Hospital course: Details of patient's surgery can be found in operative report. Patient tolerated the procedure well and was subsequently transported to orthopedic floor. Patient's orthopeidc and medical care was provided daily. Patient had daily laboratory tests performed for evaluation of overall blood counts. Patient had daily physical therapy to include strengthening range of m otion as well as education with walker ambulation. Patient was treated with Lovenox for their postoperative DVT prophylaxis during their inpatient stay. Patient was noted to have a relatively uneventful postoperative course. Patient reported satisfactory pain control with oral pain medications by postoperative day 0. Patient showed satisfactory progress with physical therapy. Patient moved steadily through the program and had no difficulty meeting the goals by postoperative day 1. Given patient's otherwise satisfactory course and having met physical therapy goals, plan is to discharge patient home on postoperative day 1. Discharge condition/disposition: Patient will be discharged home in stable condition. Discharge medications: Instructions are given on resumption of patient's normal daily medications per primary care recommendation, in addition patient will be prescribed [place] 5 mg/325 mg, Colace 100 mg, aspirin 81 mg. Discharge instructions: 1. Wound care and infection precautions, keep incision dry and covered while showering, no lotions, creams, moisturizers. No soaking, tubs, pools, hottubs. Do not scrub over the incision. 2. Utilize knee immobilizer when ambulating with walker 3. Ice and elevate when necessary. Do not exceed 20 minutes per hour with ice pack. 4. Utilize compression sleeve until seen at first follow up appointment. 5. Visiting nursing care. 7. Pain meds and anticoagulants per prescription. 8. Pain medication has potential to cause constipation. Increase oral fluid and fiber intake. Contact primary care provider if you have not had a bowel movement within 48 hours after discharge 9. No anti-inflammatory medication until discussed at first post operative visit, this including Motrin, Aleve, Mobic, Diclofenac. 10. Follow up in office at 2 weeks postop with Shen George PA-C 11. Follow up with your primary care doctor 7-10 days after discharge. 12. Contact [facility] with any questions, . Procedures: Open repair right knee medial retinacular/quadriceps tendon Patient Condition at Discharge: Good Plan - Discharge Summary Discharge Rx Participant: No New Discharge Prescriptions: New Aspirin [Adult Low Dose Aspirin EC] 81 mg PO BID #60 tablet. Docusate [Colace] 100 mg PO DAILY #30 capsule No Action Cholecalciferol [Vitamin D3 (25 Mcg = 1000 Iu)] 2,000 unit PO DAILY Torsemide [Demadex] 10 mg PO QAM Omeprazole [PriLOSEC] 20 mg PO QAM Insulin Aspart [NovoLOG Flexpen] See Protocol SQ AC-TID PRN PRN Reason: blood sugar high TO SCALE Pravastatin Sodium [Pravachol] 40 mg PO HS predniSONE 10 mg PO QAM Allopurinol [Zyloprim] 100 mg PO PC-SUPPER Carvedilol [Coreg] 6.25 mg PO BID amLODIPine [Norvasc] 10 mg PO QAM Levothyroxine Sodium [Synthroid] 25 mcg PO QAM Insulin Detemir [Levemir Flextouch] 36 unit SQ HS Discharge Medication List Cholecalciferol [Vitamin D3 (25 Mcg = 1000 Iu)] 2,000 unit PO DAILY 09/23/17 [History] Insulin Aspart [NovoLOG Flexpen] See Protocol SQ AC-TID PRN 11/24/18 [History] Omeprazole [PriLOSEC] 20 mg PO QAM 11/24/18 [History] Torsemide [Demadex] 10 mg PO QAM 11/24/18 [History] Pravastatin Sodium [Pravachol] 40 mg PO HS 02/27/19 [History] predniSONE 10 mg PO QAM 10/06/19 [History] Allopurinol [Zyloprim] 100 mg PO PC-SUPPER 10/09/19 [History] Carvedilol [Coreg] 6.25 mg PO BID 11/30/19 [History] Levothyroxine Sodium [Synthroid] 25 mcg PO QAM 12/11/19 [History] amLODIPine [Norvasc] 10 mg PO QAM 12/11/19 [History] Insulin Detemir [Levemir Flextouch] 36 unit SQ HS 02/23/20 [History] Aspirin [Adult Low Dose Aspirin EC] 81 mg PO BID #60 tablet. 02/25/20 [Rx] Docusate [Colace] 100 mg PO DAILY #30 capsule 02/25/20 [Rx] Follow up Appointment(s)/Referral(s): [facility] Visiting Nurse, [NON-STAFF] - 1 Week Michael George PAC [PHYSICIAN OBJECT ORIENTED PROGRAMMER] - 2 Weeks Activity/Diet/Wound Care/Special Instructions: Wound care instructions: 1. Optifoam dressing may be removed on 03/05/2020 2. Once dressing is removed, keep stitches clean and dry while showering Orthopedic Discharge Instructions: 1. Wound care and infection precautions, keep incision dry and covered while showering, no lotions, creams, moisturizers. No soaking, pools, hot tubs. Do not scrub over incision. 2. Utilize a knee immobilizer at all times when ambulating with walker 3. Ice and elevate when necessary. Do not exceed 20 minutes per hour with ice pack. 4. Utilize compression sleeve until seen at first follow up appointment. 5. Pain meds and anticoagulants per prescription. 6. Pain medication has potential to cause constipation. Increase oral fluid and fiber intake. Contact primary care provider if you have not had a bowel movement within 48 hours after discharge. 7. No anti-inflammatory medication until discussed at first post operative visit, this including Motrin, Aleve, Mobic, Diclofenac. 8. Follow up in office at 2 weeks postop with Shen George PA-C 9. Follow up with your primary care doctor 7-10 days after discharge. 10. Contact [facility] with any questions, . Discharge Disposition: HOME WITH HOME HEALTH SERVICES
== END 2020-02-25 11:03 | disposition home health service (06) ==
LOC: OR 07:21 → 5NMEDONC 10:20 → OR 02-25 11:03
PROVIDERS: ATTEND Orthopaedic Surgery
DX: S76.111A Strain of right quadriceps muscle, fascia and tendon, initial encounter (principal); S86.811A Strain of other muscle(s) and tendon(s) at lower leg level, right leg, initial encounter; I10 Essential (primary) hypertension; E11.9 Type 2 diabetes mellitus without complications; E78.5 Hyperlipidemia, unspecified; E03.9 Hypothyroidism, unspecified; K21.9 Gastro-esophageal reflux disease without esophagitis; M10.9 Gout, unspecified; M05.10 Rheumatoid lung disease with rheumatoid arthritis of unspecified site; M54.9 Dorsalgia, unspecified; G89.29 Other chronic pain; Z96.651 Presence of right artificial knee joint; Z87.01 Personal history of pneumonia (recurrent); Z86.73 Personal history of transient ischemic attack (TIA), and cerebral infarction without residual deficits; Z90.49 Acquired absence of other specified parts of digestive tract; Z90.89 Acquired absence of other organs; Z98.890 Other specified postprocedural states; Z95.810 Presence of automatic (implantable) cardiac defibrillator; Z98.49 Cataract extraction status, unspecified eye; Z87.891 Personal history of nicotine dependence; Z82.49 Family history of ischemic heart disease and other diseases of the circulatory system; Z79.4 Long term (current) use of insulin; Z79.52 Long term (current) use of systemic steroids; Z79.02 Long term (current) use of antithrombotics/antiplatelets; Z79.890 Hormone replacement therapy; Z79.82 Long term (current) use of aspirin; Z79.899 Other long term (current) drug therapy; Z88.1 Allergy status to other antibiotic agents; Z88.0 Allergy status to penicillin; Z91.041 Radiographic dye allergy status; Z91.013 Allergy to seafood; Z88.8 Allergy status to other drugs, medicaments and biological substances; Z91.048 Other nonmedicinal substance allergy status; W07.XXXA Fall from chair, initial encounter
CPT/HCPCS: 80048; 85025; 27385; J1200; J1100; J1720; J0690; J2405; J3010; J1650; J1170; 83036

== ENCOUNTER 2020-03-24 06:19 | Day surgery (SDC) | payer MEDICARE, BC ==
[2020-03-23 09:09] VITALS: BMI 27.1
--- NOTE | 2020-03-23 14:00 | HP ---
HISTORY AND PHYSICAL DATE OF SURGERY: 03/24/2020 HISTORY: Mark Diaz is an 80-year-old patient who had previously undergone a total knee replacement. Subsequently, repair of a medial retinacular repair. He was seen in the office with a small open wound drainage consistent with probable recurrent partial retinacular tear. I recommended open repair of that. I discussed the procedure. He was agreeable. Consent was obtained. PAST MEDICAL HISTORY: Hypertension, insulin-dependent diabetes, hyperlipidemia. PAST SURGICAL HISTORY: Total knee arthroplasty. DAILY MEDICATIONS: Allopurinol, aspirin, carvedilol, insulin, pravastatin. ALLERGIES: IODINE. SOCIAL HISTORY: Denies tobacco use. PHYSICAL EVALUATION OF THE RIGHT KNEE: His previous anterior incision is well healed. There is an approximately 1/2 cm wound along the medial aspect of the knee with some synovial fluid-type drainage through that. His range of motion is -2 to 90. He has quadriceps weakness. There is no evidence for any erythema, hyperemia, or evidence for infective process. Homans mows is negative. Distal neurovascular exam is intact. RADIOGRAPHS: Right knee revealed stable-appearing total knee arthroplasty. IMPRESSION: 1. Right knee medial retinacular tear. 2. History of right total knee arthroplasty. 3. History of previous recent medial retinacular repair, right knee. 4. Hypertension. 5. Hyperlipidemia. 6. Insulin-dependent diabetes. PLAN: Right knee open medial retinacular repair. MMODL / IJN: [id number] /
[2020-03-24 06:51] LABS: Glucose,Whole Blood 114 mg/dL (75-99)
[2020-03-24] MEDS ORDERED: ONDANSETRON 4 MG/2 ML VIAL IVP ONE ×2 (06:59→09:16)
[2020-03-24] MEDS ORDERED: LACTATED RINGERS 1,000 ML IV ONE (06:59)
[2020-03-24] MEDS ORDERED: DEXAMETHASONE SOD PHOS (MDV) 100 MG/10 ML VIAL ONE (07:28)
[2020-03-24] MEDS ORDERED: fentaNYL (PF) 50 MCG/ML 2 ML AMP ONE (07:28)
[2020-03-24] MEDS ORDERED: SUCCINYLCHOLINE CHLORIDE 100 MG/5 ML SYR IV ONE (07:28)
[2020-03-24] MEDS ORDERED: PROPOFOL 10 MG/ML 20 ML VIAL IV ONE (07:28)
[2020-03-24] MEDS ORDERED: LIDOCAINE 1% INJ 10MG/ML (20 ML MDV) ONE (07:28)
[2020-03-24] MEDS ORDERED: ceFAZolin 3,000 MG in SODIUM CHLORIDE 0.9% IRRIGATIO 3,000 ML IRRIGATION ONE (07:59)
[2020-03-24] MEDS ORDERED: HYDROmorphone 1 MG/ML 1 ML SYRINGE IVP ONE ×2 (09:00→09:15)
--- NOTE | 2020-03-24 09:01 | P.OP ---
Date of Procedure: 03/24/20 Preoperative Diagnosis: Right knee medial retinacular tear Postoperative Diagnosis: Right knee quadriceps tendon tear Procedure(s) Performed: Right knee open quadriceps tendon repair Anesthesia: JAJA Surgeon: Steve Hernandez [employer] Teacher #1: Michael George Estimated Blood Loss (ml): 5 Pathology: none sent Condition: stable Disposition: PACU Indications for Procedure: 80-year-old patient seen with a small medial wound and symptoms consistent with probable medial retinacular tear with history of previous total knee arthroplasty. I recommended repair. He was agreeable and consent was obtained. Operative Findings: See description of procedure Description of Procedure: Patient was taken to the operative suite. The patient underwent a general anesthetic by the department of anesthesia. The patient received preoperative IV antibiotics. A well-padded tourniquet placed proximal right thigh. Right lower extremity prepped and draped in the normal sterile fashion. The tourniquet was insufflated. I made an incision of the previous cicatrix. I dissected medially. The medial retinaculum had maybe a small rent in it. I did discover a 23 centimeter tear at the quadriceps tendon area. This communicated with the joint. We irrigated the wound out copiously. I repaired the small rent in the medial retinaculum with #3 Vicryl. I repaired the quadriceps tendon tear with #3 Vicryl. We checked the repair with range of motion and noted a solid repair. There was no leakage of any serous/synovial fluid at this time. We irrigated the wound out again. The subcu soft tissues were repaired with 2-0 Vicryl. The skin was repaired with skin chad. The small medial wound was debrided and repaired with nylon suture. We again took drain these range of motion noted good stability. Sterile dressings were applied. The tourniquet was released and immediate capillary refill noted. Sterile web bone Chiki bandage were applied. The patient was awakened, transferred to a bed and taken recovery stable condition. Shen TITUS assisted with the procedure.
[2020-03-24 09:12] VITALS: TEMP 98.3
[2020-03-24] MEDS ORDERED: KETOROLAC 30 MG/ML 1 ML VIAL IVP ONE (09:20)
[2020-03-24] MEDS ORDERED: SODIUM CHLORIDE 0.9% 1,000 ML IV ONE (09:28)
[2020-03-24] MEDS ORDERED: HYDROmorphone 0.5 MG/0.5 ML SYRINGE IVP ONE (09:29)
[2020-03-24 09:36] LABS: Glucose,Whole Blood 123 mg/dL (75-99)
[2020-03-24] MEDS ORDERED: diphenhydrAMINE 50 MG/ML 1 ML VIAL IVP ONE (09:42)
[2020-03-24 10:15] LABS: Glucose,Whole Blood 158 mg/dL (75-99)
[2020-03-24] MEDS ORDERED: HYDROcodone/APAP 5-325MG 1 EACH TAB PO ONE (10:18)
[2020-03-24 10:46] VITALS: BP 147/70; PULSE 66; RESP 18
== END 2020-03-24 11:10 | disposition home or self-care (01) ==
LOC: OR 06:19
PROVIDERS: ATTEND Orthopaedic Surgery
DX: S76.111A Strain of right quadriceps muscle, fascia and tendon, initial encounter (principal); S86.811A Strain of other muscle(s) and tendon(s) at lower leg level, right leg, initial encounter; I10 Essential (primary) hypertension; E78.5 Hyperlipidemia, unspecified; E11.9 Type 2 diabetes mellitus without complications; Z79.4 Long term (current) use of insulin; Z96.651 Presence of right artificial knee joint; Z79.82 Long term (current) use of aspirin; Z79.899 Other long term (current) drug therapy; Z88.0 Allergy status to penicillin; Z88.1 Allergy status to other antibiotic agents; Z91.048 Other nonmedicinal substance allergy status; Z95.810 Presence of automatic (implantable) cardiac defibrillator; Z79.890 Hormone replacement therapy; Z79.52 Long term (current) use of systemic steroids; Z90.49 Acquired absence of other specified parts of digestive tract; Z98.890 Other specified postprocedural states; X58.XXXA Exposure to other specified factors, initial encounter
CPT/HCPCS: 87635; 27385; J1200; J0690 ×2; J2405; J2001; J3010; J1885; J1170 ×2; J1100; J0330; J2704

== ENCOUNTER 2020-04-28 15:53 | Emergency (ER) | payer MEDICARE, BC ==
[2020-04-28 16:59] LABS: Albumin 3.7 g/dL (3.5-5.0); Calcium 9.4 mg/dL (8.4-10.2); Potassium 4.7 mmol/L (3.5-5.1); Total Bilirubin 0.4 mg/dL (0.2-1.3); Total Protein 6.6 g/dL (6.3-8.2)
[2020-04-28 17:10] LABS: Basophils # (A) 0.1 k/uL (0-0.2); Basophils % (A) 1 %; Eosinophils # (A) 0.7 k/uL (0-0.7); Eosinophils % (A) 4 %; HCT 38.8 % (39.0-53.0); HGB 11.6 gm/dL (13.0-17.5); Hypochromasia Moderate; Lymphocytes # (A) 4.6 k/uL (1.0-4.8); Lymphocytes % (A) 27 %; MCH 25.6 pg (25.0-35.0); MCV 85.5 fL (80.0-100.0); Mean Platelet Volume 7.5; Monocytes # (A) 0.8 k/uL (0-1.0); Monocytes % (A) 5 %; Neutrophils # (A) 10.8 k/uL (1.3-7.7); Neutrophils % (A) 62 %; Platelet Count 421 k/uL (150-450); RBC 4.54 m/uL (4.30-5.90); RDW 14.5 % (11.5-15.5); WBC 17.4 k/uL (3.8-10.6)
--- NOTE | 2020-04-28 17:12 | ED ---
General Adult HPI - General Chief complaint: Shortness of Breath Stated complaint: SOB Time Seen by Provider: 04/28/20 16:00 Source: patient, RN notes reviewed, old records reviewed Mode of arrival: ambulatory Limitations: physical limitation - History of Present Illness Initial comments: This is an 80-year-old male who presents to the emergency department from Dr. Isaac's office. Dr. Isaac wanted the patient have a computed tomography scan to rule out PE even though he thought this was very low probability. Recent arrived I told him I would order this but the patient informed me that he can have IV contrast. Patient states she's been short of breath for quite a while and he said his heart worked up and he was told it was not his heart Dr. Isaac told him his pulmonary function tests were normal so they're trying to get to the bottom of this after many months of shortness of breath. Patient states there is no change in his symptoms today he denies any chest pain or palpitations. Patient denies any lightheadedness or dizziness. Patient denies any fever chills or cough per patient denies abdominal pain. Once I realized with the patient was here for I spoke with Dr. Isaac he wanted the patient to get a VQ scan because of the kidney dysfunction the patient has an he was unaware of this when he ordered the CT. - Related Data Home Medications Medication Instructions Recorded Confirmed Cholecalciferol [Vitamin D3 (25 2,000 unit PO DAILY 09/23/17 03/23/20 Mcg = 1000 Iu)] Insulin Aspart [NovoLOG Flexpen] See Protocol SQ AC-TID PRN 11/24/18 03/23/20 Omeprazole [PriLOSEC] 20 mg PO QAM 11/24/18 03/23/20 Torsemide [Demadex] 10 mg PO QAM 11/24/18 03/23/20 Pravastatin Sodium [Pravachol] 40 mg PO HS 02/27/19 03/23/20 predniSONE 10 mg PO QAM 10/06/19 03/23/20 Allopurinol [Zyloprim] 100 mg PO PC-SUPPER 10/09/19 03/23/20 Carvedilol [Coreg] 6.25 mg PO BID 11/30/19 03/23/20 Levothyroxine Sodium [Synthroid] 25 mcg PO QAM 12/11/19 03/23/20 amLODIPine [Norvasc] 10 mg PO QAM 12/11/19 03/23/20 Insulin Detemir [Levemir Flextouch] 36 unit SQ HS 02/23/20 03/23/20 Aspirin [Adult Low Dose Aspirin EC] 81 mg PO DAILY 03/23/20 03/23/20 HYDROcodone/APAP 5-325MG [[place] 1 - 2 tab PO Q6HR PRN 03/23/20 03/23/20 5-325] Previous Rx's Medication Instructions Recorded Cephalexin [Keflex] 500 mg PO Q6HR 7 Days #28 cap 03/24/20 Hydrocodone/Acetaminophen [[place] 1 each PO Q6HR PRN #28 tab 03/24/20 5-325] Allergies Allergy/AdvReac Type Severity Reaction Status Date / Time amlodipine Allergy Swelling Verified 04/28/20 16:03 doxycycline Allergy Anaphylaxis Verified 04/28/20 16:03 Iodinated Contrast Media Allergy Anaphylaxis Verified 04/28/20 16:03 [Iodinated Contrast- Oral and IV Dye] iodine Allergy Anaphylaxis Verified 04/28/20 16:03 metronidazole [From Flagyl] Allergy Rash/Hives Verified 04/28/20 16:03 shrimp Allergy Rash/Hives Verified 04/28/20 16:03 acarbose AdvReac Abdominal Verified 04/28/20 16:03 Pain adhesive tape AdvReac SKIN PULLS Verified 04/28/20 16:03 OFF " amoxicillin trihydrate AdvReac Nausea & Verified 04/28/20 16:03 [From Augmentin] Vomiting potassium clavulanate AdvReac Nausea & Verified 04/28/20 16:03 [From Augmentin] Vomiting Review of Systems ROS Statement: Those systems with pertinent positive or pertinent negative responses have been documented in the HPI. ROS Other: All systems not noted in ROS Statement are negative. Past Medical History Past Medical History: CVA/TIA, Diabetes Mellitus, GERD/Reflux, Hearing Disorder / Deafness, Hyperlipidemia, Hypertension, Musculoskeletal Disorder, Pneumonia, Rheumatoid Arthritis (RA), Thyroid Disorder Additional Past Medical History / Comment(s): Hx CMP w/ BiVICD. 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 chronic back pain, SOB. Hx Rt Total Knee, then injury to tendon w/ repair, ongoing Rt Knee wound,wearing brace. History of Any Multi-Drug Resistant Organisms: None Reported Past Surgical History: AICD, Appendectomy, Back Surgery, Heart Catheterization, Joint Replacement, Tonsillectomy Additional Past Surgical History / Comment(s): Biventricular AICD placement/[employer], battery change r/t recall, Back surgery 6, colonoscopy, past hx of pain clinic procedure, cataract sx, Oral sx "to smooth down bones in mouth." 01/18/20 RT TOTAL KNEE; 02/24/20 Repair Rt knee tendon. Past Anesthesia/Blood Transfusion Reactions: No Reported Reaction Additional Past Anesthesia/Blood Transfusion Reaction / Comment(s): blood transfusion-no reaction; BP was high when came in for his 1st pain procedure- procedure was canceled- states no problem since. Type of Cardiac Device: AICD Device Placement Date:: 2016 Past Psychological History: No Psychological Hx Reported Smoking Status: Former smoker Past Alcohol Use History: Occasional Past Drug Use History: None Reported - Past Family History Father History Unknown: Yes Mother Family Medical History: Hyperlipidemia, Hypertension, Myocardial Infarction ([place]) Additional Family Medical History / Comment(s): . General Exam - General Exam Comments Initial Comments: GENERAL: Patient is well-developed and well-nourished. Patient is nontoxic and well- hydrated and is in no acute distress. ENT: Neck is soft and supple. No significant lymphadenopathy is noted. Oropharynx is clear. Moist mucous membranes. Neck has full range of motion without eliciting any pain. EYES: The sclera were anicteric and conjunctiva were pink and moist. Extraocular movements were intact and pupils were equal round and reactive to light. Eyelids were unremarkable. PULMONARY: Unlabored respirations. Good breath sounds bilaterally. No audible rales rhonchi or wheezing was noted. CARDIOVASCULAR: There is a regular rate and rhythm without any murmurs gallops or rubs. ABDOMEN: Soft and nontender with normal bowel sounds. SKIN: Skin is clear with no lesions or rashes and otherwise unremarkable. NEUROLOGIC: Patient is alert and oriented x3. Cranial nerves II through XII are grossly intact. Motor and sensory are also intact. Normal speech, volume and content. Symmetrical smile. MUSCULOSKELETAL: Normal extremities with adequate strength and full range of motion. No lower extremity swelling or edema. No calf tenderness. LYMPHATICS: No significant lymphadenopathy is noted PSYCHIATRIC: Normal psychiatric evaluation. Limitations: physical limitation Course Vital Signs 04/28/20 04/28/20 16:00 16:03 Temperature 98.1 F Pulse Rate 60 Respiratory 20 20 Rate Blood Pressure 142/70 O2 Sat by Pulse 95 Oximetry Medical Decision Making - Medical Decision Making EKG shows a paced rhythm at 60 bpm NH interval 292 QRS on a 42 QT intervals 460 QTC is 460. Patient's EKG shows no ST segment elevation or depression. I spoke with Dr. Isaac he wanted the patient have a VQ scan he stated that if the VQ scan was low or intermediate probability the patient was to be sent home and follow-up with him. I went back in the room after the VQ scan came back low probability and the patient was feeling fine and wanted to be discharged. Patient agrees he will follow-up with Dr. Isaac - Lab Data Result diagrams: 04/28/20 15:25 04/28/20 15:25 Lab Results 04/28/20 04/28/20 04/28/20 Range/Units 15:25 15:25 15:25 WBC 17.4 H (3.8-10.6) k/uL RBC 4.54 (4.30-5.90) m/uL Hgb 11.6 L (13.0-17.5) gm/dL Hct 38.8 L (39.0-53.0) % MCV 85.5 (80.0-100.0) fL MCH 25.6 (25.0-35.0) pg MCHC 30.0 L (31.0-37.0) g/dL RDW 14.5 (11.5-15.5) % Plt Count 421 (150-450) k/uL Neutrophils % 62 % Lymphocytes % 27 % Monocytes % 5 % Eosinophils % 4 % Basophils % 1 % Neutrophils # 10.8 H (1.3-7.7) k/uL Lymphocytes # 4.6 (1.0-4.8) k/uL Monocytes # 0.8 (0-1.0) k/uL Eosinophils # 0.7 (0-0.7) k/uL Basophils # 0.1 (0-0.2) k/uL Hypochromasia Moderate D-Dimer 2.54 H (<0.60) mg/L FEU Sodium 137 (137-145) mmol/L Potassium 4.7 (3.5-5.1) mmol/L Chloride 105 (98-107) mmol/L Carbon Dioxide 23 (22-30) mmol/L Anion Gap 9 mmol/L BUN 26 H (9-20) mg/dL Creatinine 1.92 H (0.66-1.25) mg/dL Est GFR (CKD-EPI)AfAm 37 (>60 ml/min/1.73 sqM) Est GFR (CKD-EPI)NonAf 32 (>60 ml/min/1.73 sqM) Glucose 61 L (74-99) mg/dL Calcium 9.4 (8.4-10.2) mg/dL Total Bilirubin 0.4 (0.2-1.3) mg/dL AST 19 (17-59) U/L ALT 11 (4-49) U/L Alkaline Phosphatase 68 (38-126) U/L Total Protein 6.6 (6.3-8.2) g/dL Albumin 3.7 (3.5-5.0) g/dL Disposition Clinical Impression: Chronic dyspnea Disposition: HOME SELF-CARE Instructions (If sedation given, give patient instructions): Dyspnea (ED) Is patient prescribed a controlled substance at d/c from ED?: No Referrals: Kenyon Chaudhary MD [Primary Care Provider] - 1-2 days Time of Disposition: 18:33
--- NOTE | 2020-04-28 18:26 | NM ---
EXAMINATION TYPE: NM pul vent and perfuse DATE OF EXAM: 04/28/2020 COMPARISON: Outside chest x-ray earlier today. HISTORY: Shortness of breath and wheezing. Elevated d-dimer. TECHNIQUE: Utilizing inhalation of 35.6 mCi Tc 99m DTPA aerosol and intravenous injection of 4.8 mCi of Tc 99m MAA, ventilation and perfusion images are acquired post injection in multiple projections. FINDINGS: Central clumping of particles on ventilation images consistent with underlying COPD. Improved radiotr acer uptake on perfusion images There is no evidence of mismatched defects. IMPRESSION: Low scintigraphic evidence for acute pulmonary embolism.
[2020-04-28 18:59] VITALS: BP 140/60; PULSE 66; RESP 16; TEMP 97.9
== END 2020-04-28 19:01 | disposition home or self-care (01) ==
LOC: EC 15:53
DX: R06.00 Dyspnea, unspecified (principal); E11.9 Type 2 diabetes mellitus without complications; K21.9 Gastro-esophageal reflux disease without esophagitis; I10 Essential (primary) hypertension; E78.5 Hyperlipidemia, unspecified; Z79.4 Long term (current) use of insulin; Z79.82 Long term (current) use of aspirin; Z79.02 Long term (current) use of antithrombotics/antiplatelets; Z79.890 Hormone replacement therapy; Z79.899 Other long term (current) drug therapy; Z88.8 Allergy status to other drugs, medicaments and biological substances; Z88.1 Allergy status to other antibiotic agents; Z91.041 Radiographic dye allergy status; Z91.048 Other nonmedicinal substance allergy status; Z91.013 Allergy to seafood; Z88.0 Allergy status to penicillin; Z87.891 Personal history of nicotine dependence; Z95.810 Presence of automatic (implantable) cardiac defibrillator; Z86.73 Personal history of transient ischemic attack (TIA), and cerebral infarction without residual deficits
CPT/HCPCS: 99285; 36415; 93005; 85379; 80053; 85025; 78582; A9540; A9567

== ENCOUNTER → 2020-05-18 | Outpatient (CLI) | payer MEDICARE, BC ==
[2020-05-18 09:15] VITALS: BP 131/60; PULSE 71; RESP 18
--- NOTE | 2020-05-18 09:34 | P.PAINPG ---
Subjective Progress Note Date: 05/18/20 This is follow up visit for this 79 years old male, with a chronic history of severe low back pain started more than 30 years ago, after falling accident, and from that time on patient was dealing with back pain issues, patient had 6 back surgery, he is diagnosed with failed back surgery syndrome and lumbar area, and lumbar spondylosis with lumbar facet arthropathy, and sacroiliitis, status post RFA of the medial branch lumbar area, and sacroiliac joint steroid injection, he continued to have severe and constant low back pain, he denies any fever or night sweats. Denies any change in the bowel movement or urination, he is able to ambulate on his own he does not use any walker he does not use a cane, he denies any numbness or tingling sensation in the lower extremities Objective - Vital Signs Vital signs: Vital Signs Temp Pulse 71 05/18/20 09:08 Resp 18 05/18/20 09:08 BP 131/60 05/18/20 09:08 Pulse Ox - Exam -Constitutiona : Cooperative , not in acute distress . -HEENT : nech : supple , no Lymphadenopathy , normal thyroid size . : eyes : no ptosis , no icterus, no photophobia . - neurologic : Cranial nerve II to XII intact , no focal neurological deffecit . -psychatric : alert , oriented X 3 , appropriate affect , intact judgment and insight . -Lymphatic : no Lymphadenopathy . - musculoskeltal : Lumber spine moter stegnth lower extremities ,thigh and legs 4-5/5 Right side , 4- 5/5 Left side deep tendon reflexes : normal Knee Jerk , normal ankle Jerk lumber facet Loading Test =positive Right , posiutive Left Range of motion of the lumbar spine Flexion 30 degrees, extension 10 degrees strait leg raising test = positive at 60 degree on the right side and is negative on the left side Fabere test= positive Right , and positive LT . Assessment and Plan Plan: Assessment and plan= chronic severe low back pain secondary to failed back surgery syndrome and lumbar area Lumbar spondylosis with lumbar facet arthropathy, sacroiliitis. Patient continued to have severe low back pain after RFA of the medial branch lumbar area, and after left sacroiliac joint steroid injection Recommend to start patient on Neurontin 100 mg twice a day and new prescription given, Mobic 7.5 mg daily. Patient could benefit from caudal epidural steroid injection with lysis of epidural adhesions. Narcotic agreement signed today. Time with Patient: Less than 30 PQRS Measure Charge Sheet Measure #130: Documentation of Current Meds in Medical Chart: Patient's medications documented in chart Measure #226: Tobacco Use: Screen & Cessation Intervention: Pt not a tobacco user Measure #111: Pneumonia Vaccination: Pneumococcal vaccine administered or previously received Measure #47: Advance Care Plan: Advance care planning discussed & documented, pt chose/unable to give Measure #412: Opioid Treatment Agreement: Documented signed opioid trtmnt agreemnt min once during opioid trtmnt Measure #408: Opioid Therapy Follow-up Evaluation: Patient had f/u eval minimum every 3 months during opioid therapy Measure #317: Preventitive Care & Scrn High Bld Press & F/U: Normal blood pressure, f/u not required Measure #128: Body Mass Index (BMI) Screening & Follow-up: BMI documented ABOVE normal parameters - f/u documented Measure #131: Pain Assessment & Follow-up: Pain positive & plan documented, Follow-up scheduled Measure #431: Unhealthy Alcohol Use Preventative Care & Scrn: Patient not identified as an unhealthy alcohol user PQRS Narrative: Smoking Status Former smoker Blood Pressure 131/60 Pain Intensity [Lower Back] 9 Scale Used Numeric (1 - 10) Hx Alcohol Use (MH) No Home Medications: Ambulatory Orders Cholecalciferol [Vitamin D3 (25 Mcg = 1000 Iu)] 2,000 unit PO DAILY 09/23/17 Insulin Aspart [NovoLOG Flexpen] See Protocol SQ AC-TID PRN 11/24/18 Omeprazole [PriLOSEC] 20 mg PO QAM 11/24/18 Torsemide [Demadex] 10 mg PO QAM 11/24/18 Pravastatin Sodium [Pravachol] 40 mg PO HS 02/27/19 predniSONE 10 mg PO QAM 10/06/19 Allopurinol [Zyloprim] 100 mg PO AC-SUPPER 10/09/19 Carvedilol [Coreg] 6.25 mg PO BID 11/30/19 Levothyroxine Sodium [Synthroid] 25 mcg PO QAM 12/11/19 amLODIPine [Norvasc] 10 mg PO QAM 12/11/19 Insulin Detemir [Levemir Flextouch] 36 unit SQ HS 02/23/20 Aspirin [Adult Low Dose Aspirin EC] 81 mg PO DAILY 03/23/20 HYDROcodone/APAP 7.5-325MG [[facility] 7.5-325] 1 tab PO Q4H PRN 05/12/20 Controlled Substance Measures - Controlled Substance Measures Is patient prescribed a controlled substance at discharge?: Yes When asked, does pt state using other controlled substances?: No If prescribed controlled substance>3 days was MAPS reviewed?: Yes If Rx opioid, was Start Talking consent form obtained?: Yes If opioid is for acute pain is fill amount 7 days or less?: No Was information provided regarding opioid addiction?: Yes
== END | disposition home or self-care (01) ==
LOC: PNWHC3 08:37
PROVIDERS: ATTEND Specialist
DX: G89.29 Other chronic pain (principal); M47.816 Spondylosis without myelopathy or radiculopathy, lumbar region; M96.1 Postlaminectomy syndrome, not elsewhere classified; M46.1 Sacroiliitis, not elsewhere classified; Z98.890 Other specified postprocedural states; Z87.891 Personal history of nicotine dependence; Z79.4 Long term (current) use of insulin; Z79.890 Hormone replacement therapy; Z79.82 Long term (current) use of aspirin; Z79.891 Long term (current) use of opiate analgesic; Z79.899 Other long term (current) drug therapy
CPT/HCPCS: 99211

== ENCOUNTER 2020-05-19 10:13 | Day surgery (SDC) | payer MEDICARE, BC ==
[2020-05-19 10:49] VITALS: TEMP 97
[2020-05-19] MEDS ORDERED: LACTATED RINGERS 1,000 ML IV ONE (10:50)
[2020-05-19 10:53] LABS: Glucose,Whole Blood 180 mg/dL (75-99)
[2020-05-19] MEDS ORDERED: fentaNYL (PF) 50 MCG/ML 2 ML AMP ONE (11:28)
[2020-05-19] MEDS ORDERED: methylPREDNISolone ACETATE 40 MG/ML 1 ML VIAL ONE (11:28)
[2020-05-19] MEDS ORDERED: SODIUM CHLORIDE 0.9% (PF) 10 ML VIAL ONE (11:28)
[2020-05-19] MEDS ORDERED: IOPAMIDOL M200 10 ML VIAL ONE (11:28)
[2020-05-19] MEDS ORDERED: MIDAZOLAM 2 MG/2 ML VIAL ONE (11:28)
--- NOTE | 2020-05-19 11:49 | P.PCN ---
Date of Procedure: 05/19/20 Procedure(s) Performed: PREOP DIAGNOSIS: 1- Lumbar postlaminectomy syndrome. 2-lumbar spondylosis with lumbar facet arthropathy without myelopathy POSTOP DIAGNOSIS:1- Lumbar postlaminectomy syndrome. 2-lumbar spondylosis with lumbar facet arthropathy without myelopathy PROCEDURE: 1-Caudal epidural steroid injection with epidurolysis and epidurogram under fluoroscopic guidance. (Fluoroscopy images available in the radiology Department ) ANESTHESIA: Local with 1% lidocaine 3 ml ,and moderate sedation, with Versed 2 mg and fentanyl 100 g. EBL: Minimal. PROCEDURE INDICATION: The patient with post-laminectomy syndrome with low back pain and radiculopathy radiating down in both legs, here for a caudal epidural steroid injection with epidurolysis. PROCEDURE DESCRIPTION: The patient was seen and identified in the preoperative area. Risks, benefits, complications, and alternatives were discussed with the patient. The patient agreed to proceed with the procedure and signed the consent. IV was started, and vital signs were stable. Patient was taken to the OR and time out was completed. The patient was placed in the prone position on procedure table and a pillow was placed under the abdomen to reduce lumbar lordosis. The lumbosacral area was prepped and draped in the usual sterile fashion. Vital signs were closely monitored during the procedure. lateral view and the anterior-posterior plates of the sacrum were identified with infiltration of the area overlying the sacral hiatus with 1% lidocaine .A 17 gauge RK epidural needle was used to advance through the sacral hiatus into the caudal epidural space. Omnipaque was not injected because patient had an ALLERGY to iodine. the position of the needle was verified to be in the midline. A Racz catheter was introduced into the epidural space and was advanced towards the L5-S1 interspace under direct fluoroscopic guidance. Multiple passes were made with the catheter for lysis of epidural adhesions. Depo-Medrol 40 mg with 3ml of preservative free Lidocaine 1% and 5 ml of preservative free normal saline was injected slowly. Additional spread was seen to L4 under fluoroscopy. The needle and the catheter were withdrawn intact. note= Omnipaque was not injected because patient had an ALLERGY to iodine COMPLICATIONS: None. DISPOSITION / PLANS: The patient was placed in a supine position and transferred to the recovery area in a stable condition for observation and was discharged from the recovery room after meeting discharge criteria. Home discharge instructions given to the patient by the staff. The patient was reexamined prior to discharge. The patient will schedule a follow up in the clinic in 2-4 weeks.
[2020-05-19 11:55] VITALS: PULSE 68; RESP 16
[2020-05-19] MEDS ORDERED: IV FLUID CONTINUATION 800 ML IV ONE (11:55)
[2020-05-19 11:58] LABS: Glucose,Whole Blood 209 mg/dL (75-99)
[2020-05-19 12:18] VITALS: BP 150/62
[2020-05-19] MEDS ORDERED: LACTATED RINGERS 1,000 ML IV SCH (12:53)
--- NOTE | 2020-05-19 13:09 | FL ---
EXAMINATION TYPE: FL guided pain mgmt statistic DATE OF EXAM: 05/19/2020 HISTORY: Fluoroscopy time 6 seconds of fluoroscopy provided. IMPRESSION: 1. Fluoroscopy time.
== END 2020-05-19 12:40 | disposition home or self-care (01) ==
LOC: ORPAIN 10:13
PROVIDERS: ATTEND Specialist
DX: M47.26 Other spondylosis with radiculopathy, lumbar region (principal); M96.1 Postlaminectomy syndrome, not elsewhere classified; E11.9 Type 2 diabetes mellitus without complications; Z88.0 Allergy status to penicillin; Z88.1 Allergy status to other antibiotic agents; Z91.013 Allergy to seafood; Z91.041 Radiographic dye allergy status; Z91.048 Other nonmedicinal substance allergy status
CPT/HCPCS: 62264; J2250; J1030; J3010; Q9966; C1894; 99152

== ENCOUNTER → 2020-05-24 | Outpatient (CLI) | payer MEDICARE, BC ==
--- NOTE | 2020-05-24 19:04 | CT ---
EXAMINATION TYPE: CT soft tissue neck wo con DATE OF EXAM: 05/24/2020 COMPARISON: Correlation cervical spine 02/26/2018 HISTORY: 80-year-old male with Sore throat TECHNIQUE: Contiguous axial scanning of the soft tissues of the neck without IV contrast. Coronal and sagittal reconstructions performed. CT DLP: 679 mGycm Automated exposure control for dose reduction was used. FINDINGS: Lack of IV contrast limits assessment of the cervical mucosal space and vascular structures. Mild generalized supratentorial volume loss. Visualized orbits and globes, paranasal sinuses, and mas toid air cells appear clear. Nasopharynx and oropharynx appear clear. Epiglottis and prevertebral soft tissues within normal limits. Glottic and subglottic structures as well as the tracheal column appear clear. Mild aneurysm proximal arch at 4.1 cm. 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 Hazy densities in the [place] ngs likely relate to areas of generalized atelectasis. Left-sided pacemaker generator is present with leads going along the left brachycephalic vein. Noncontrast appearance of the thyroid and parotid glands show no gross abnormality. The submandibular glands are atrophic. No cervical lymphadenopathy identified. Moderate to severe atherosclerotic calcifications of the bilateral carotid bifurcations. Moderate to advanced spondylitic change throughout the cervical spine. Grade 1 anterolisthesis at C2- C3. Chronic ununited type II dens fracture. Grade 1 anterolisthesis C7-T1. IMPRESSION: 1. LIMITED ASSESSMENT OF THE CERVICAL MUCOSAL SPACE AND VASCULAR STRUCTURES DUE TO LACK OF IV CONTRAS T. 2. NO OBVIOUS MUCOSAL SPACE LESION. NO RETROPHARYNGEAL SOFT TISSUE THICKENING. NO CERVICAL LYMPHADENO MARY ANNE SEEN. 3. MILDLY ANEURYSMAL PROXIMAL ARCH OF 4.1 CM. MEDIASTINAL LIPOMATOSIS INCIDENTALLY NOTED. ATROPHIC JACOBSEN BMANDIBULAR GLANDS. 4. MODERATE TO SEVERE ATHEROSCLEROTIC CHANGES AT THE BILATERAL CAROTID BIFURCATIONS. CAROTID DOPPLER ULTRASOUND CAN BE CONSIDERED IF CONCERN FOR CAROTID STENOSIS.
== END | disposition home or self-care (01) ==
LOC: RADCTMAIN 14:41
PROVIDERS: ATTEND Internal Medicine
DX: I65.23 Occlusion and stenosis of bilateral carotid arteries (principal); R59.0 Localized enlarged lymph nodes
CPT/HCPCS: 70490

== ENCOUNTER 2020-06-02 09:21 | Day surgery (SDC) | payer MEDICARE, BC ==
[2020-05-31 10:08] VITALS: BMI 26.6
[2020-06-02] MEDS ORDERED: fentaNYL (PF) 50 MCG/ML 2 ML AMP ONE (10:25)
[2020-06-02] MEDS ORDERED: MIDAZOLAM 2 MG/2 ML VIAL ONE (10:25)
[2020-06-02] MEDS ORDERED: methylPREDNISolone ACETATE 40 MG/ML 1 ML VIAL ONE (10:25)
--- NOTE | 2020-06-02 10:40 | P.PCN ---
Date of Procedure: 06/02/20 Procedure(s) Performed: PREOP DIAGNOSIS: 1- Lumbar postlaminectomy syndrome. 2-lumbar spondylosis with lumbar facet arthropathy without myelopathy POSTOP DIAGNOSIS:1- Lumbar postlaminectomy syndrome. 2-lumbar spondylosis with lumbar facet arthropathy without myelopathy PROCEDURE: 1-Caudal epidural steroid injection with epidurolysis and epidurogram under fluoroscopic guidance. (Fluoroscopy images available in the radiology Department ) ANESTHESIA: Local with 1% lidocaine 3 ml ,and moderate sedation, with Versed 2 mg and fentanyl 100 g. EBL: Minimal. PROCEDURE INDICATION: The patient with post-laminectomy syndrome with low back pain and radiculopathy radiating down in both legs, here for a caudal epidural steroid injection with epidurolysis. PROCEDURE DESCRIPTION: The patient was seen and identified in the preoperative area. Risks, benefits, complications, and alternatives were discussed with the patient. The patient agreed to proceed with the procedure and signed the consent. IV was started, and vital signs were stable. Patient was taken to the OR and time out was completed. The patient was placed in the prone position on procedure table and a pillow was placed under the abdomen to reduce lumbar lordosis. The lumbosacral area was prepped and draped i n the usual sterile fashion. Vital signs were closely monitored during the procedure. lateral view and the anterior-posterior plates of the sacrum were identified with infiltration of the area overlying the sacral hiatus with 1% lidocaine .A 17 gauge RK epidural needle was used to advance through the sacral hiatus into the caudal epidural space. Omnipaque was not injected because patient had an ALLERGY to iodine. the position of the needle was verified to be in the midline. A Racz catheter was introduced into the epidural space and was advanced towards the L5-S1 interspace under direct fluoroscopic guidance. Multiple passes were made with the catheter for lysis of epidural adhesions. Depo-Medrol 40 mg with 3ml of preservative free Lidocaine 1% and 5 ml of preservative free normal saline was injected slowly. Additional spread was seen to L4 under fluoroscopy. The needle and the catheter were withdrawn intact. note= Omnipaque was not injected because patient had an ALLERGY to iodine COMPLICATIONS: None. DISPOSITION / PLANS: The patient was placed in a supine position and transferred to the recovery area in a stable condition for observation and was discharged from the recovery room after meeting discharge criteria. Home discharge instructions given to the patient by the staff. The patient was reexamined prior to discharge. The patient will schedule a follow up in the clinic in 2-4 weeks.
[2020-06-02] MEDS ORDERED: IV FLUID CONTINUATION 1,000 ML IV ONE (10:46)
[2020-06-02 10:57] LABS: Glucose,Whole Blood 130 mg/dL (75-99)
--- NOTE | 2020-06-02 11:51 | FL ---
Fluoroscopy HISTORY: Pain 7 seconds fluoroscopy time supplied to the referring clinician. 4 intraoperative C-arm images docume nt the procedure. See dictated report from anesthesia.
[2020-06-02 15:27] LABS: Glucose,Whole Blood 105 mg/dL (75-99)
[2020-06-03 08:40] VITALS: BP 145/72; PULSE 61; RESP 18; TEMP 98.3
== END 2020-06-02 11:17 | disposition home or self-care (01) ==
LOC: ORPAIN 09:21
PROVIDERS: ATTEND Specialist
DX: M96.1 Postlaminectomy syndrome, not elsewhere classified (principal); M47.26 Other spondylosis with radiculopathy, lumbar region; E11.9 Type 2 diabetes mellitus without complications; Z88.1 Allergy status to other antibiotic agents; Z91.041 Radiographic dye allergy status; Z91.013 Allergy to seafood; Z95.0 Presence of cardiac pacemaker
CPT/HCPCS: 62264; J2250; J1030; J3010; C1894

== ENCOUNTER → 2020-06-16 | Outpatient (CLI) | payer MEDICARE, BC ==
[2020-06-16 13:23] VITALS: BP 119/59; PULSE 84; RESP 18
--- NOTE | 2020-06-17 08:32 | P.PAINPG ---
Subjective Progress Note Date: 06/16/20 This is a follow up visit for this 80 year old male, with a chronic history of severe low back pain started more than 30 years ago, after falling accident, and from that time on patient was dealing with back pain issues, patient had 6 back surgeries, he is diagnosed with failed back surgery syndrome and lumbar area, and lumbar spondylosis with lumbar facet arthropathy, and sacroiliitis, status post caudal epidural steroid injection with lysis visit of the lesions 2 done on 05/19/2020 and 06/02/2020. In the past, he has undergone RFA of the medial branch lumbar area, and sacroiliac joint steroid injection, he returns today for follow-up. He reports no significant benefit from any procedure we have done. He has also trialed several different medications including neuropathic pain medications and narcotics with no significant benefit. Pain is primarily located in the low back, rated as 9/10, described as aching, worse with walking and any movements. He does not describe any relieving factors. He is very frustrated with the pain level and the fact that no medications or procedures have helped him. He denies any fever or night sweats. Denies any change in the bowel movement or urination, he is able to ambulate on his own he does not use any walker he does not use a cane, he denies any numbness or tingling sensation in the lower extremities Review of systems is negative for chest pain, shortness of breath, new onset weakness, numbness/tingling, abdominal pain, malaise, fever, night sweats, chills, homicidal or suicidal ideation, or bowel or bladder incontinence. Physical exam: Vitals: Reviewed in EMR GENERAL: Well appearing, in no acute distress PSYCH: Mood and affect is appropriate. Awake, alert, and oriented SKIN: Skin color, texture, turgor normal, no rashes or lesions HEENT: Normocephalic, atraumatic. EOM intact CV: No pedal edema RESP: Respirations are unlabored, no audible wheezing GI: Abdomen non-distended MUSCULOSKELETAL: Bilateral lower extremity strength is normal and symmetric. No atrophy or tone abnormalities are noted. Lumbar spine: Straight leg raising in the sitting position is negative for radicular pain. Tenderness to palpation over the lumbar spine and paraspinous muscles bilaterally. Positive for pain with facet loading. Surgical scar visible and well-healed Buttocks: No pain to palpation over the PSIS Extremities: Peripheral joint ROM is full and pain free without obvious instability or laxity in all four extremities. No edema or skin discolorations noted. NEUR: Bilateral lower extremity coordination and muscle stretch reflexes are physiologic and symmetric. Negative clonus bilaterally. No loss of sensation is noted. Assessment and Plan Plan: Assessment and plan= chronic severe low back pain secondary to failed back surgery syndrome lumbar area Lumbar spondylosis with lumbar facet arthropathy, sacroiliitis. Patient has undergone several different procedures including caudal epidural steroid injection with lysis of adhesions, RFA of the medial branch lumbar area, sacroiliac joint steroid injection with no benefit noted from any procedure. He has also trialed different medications including neuropathic pain medications and opioids with no significant benefit. Today, we had a lengthy discussion regarding options for low back pain. Since he has failed multiple medication options and multiple interventional pain procedures, I recommended evaluation for spinal cord stimulator. He was provided a handout for [employer] [facility]. I will fax over his information to [facility] in [place] for him to be scheduled for a spinal cord stimulator trial. I also ordered a thoracic spine computed tomography scan for preoperative evaluation. Of note, he does have a defibrillator. Follow-up: With [facility] in [place]. He will return to our pain clinic when necessary PQRS Measure Charge Sheet Measure #130: Documentation of Current Meds in Medical Chart: Patient's medications documented in chart Measure #226: Tobacco Use: Screen & Cessation Intervention: Pt not a tobacco user Measure #111: Pneumonia Vaccination: Pneumococcal vaccine administered or previously received Measure #47: Advance Care Plan: Advance care planning discussed & documented, pt chose/unable to give Measure #412: Opioid Treatment Agreement: Documented signed opioid trtmnt agreemnt min once during opioid trtmnt Measure #408: Opioid Therapy Follow-up Evaluation: Patient had f/u eval minimum every 3 months during opioid therapy Measure #128: Body Mass Index (BMI) Screening & Follow-up: BMI documented within normal parameters Measure #131: Pain Assessment & Follow-up: Pain positive & plan documented, Follow-up when necessary Measure #431: Unhealthy Alcohol Use Preventative Care & Scrn: Patient not identified as an unhealthy alcohol user Objective - Vital Signs Vital signs: Intake & Output 06/15/20 06/16/20 06/16/20 18:59 06:59 18:59 Weight 89.358 kg PQRS Measure Charge Sheet PQRS Narrative: Smoking Status Former smoker Pain Intensity [Lower Back] 8 Hx Alcohol Use (MH) No Home Medications: Ambulatory Orders Cholecalciferol [Vitamin D3 (25 Mcg = 1000 Iu)] 2,000 unit PO DAILY 09/23/17 Insulin Aspart [NovoLOG Flexpen] See Protocol SQ AC-TID PRN 11/24/18 Omeprazole [PriLOSEC] 20 mg PO QAM 11/24/18 Torsemide [Demadex] 10 mg PO QAM 11/24/18 Pravastatin Sodium [Pravachol] 40 mg PO HS 02/27/19 predniSONE 10 mg PO QAM 10/06/19 allopurinoL [Zyloprim] 100 mg PO AC-SUPPER 10/09/19 Carvedilol [Coreg] 6.25 mg PO BID 11/30/19 Levothyroxine Sodium [Synthroid] 25 mcg PO QAM 12/11/19 Insulin Detemir [Levemir Flextouch] 36 unit SQ HS 02/23/20 Aspirin [Adult Low Dose Aspirin EC] 81 mg PO DAILY 03/23/20 HYDROcodone/APAP 7.5-325MG [[facility] 7.5-325] 1 tab PO Q4H PRN 05/12/20 Controlled Substance Measures - Controlled Substance Measures Is patient prescribed a controlled substance at discharge?: No
== END | disposition home or self-care (01) ==
LOC: PNWHC3 12:50
PROVIDERS: ATTEND Anesthesiology
DX: G89.29 Other chronic pain (principal); M47.816 Spondylosis without myelopathy or radiculopathy, lumbar region; M46.1 Sacroiliitis, not elsewhere classified; M46.96 Unspecified inflammatory spondylopathy, lumbar region; M96.1 Postlaminectomy syndrome, not elsewhere classified; Z87.891 Personal history of nicotine dependence; Z79.899 Other long term (current) drug therapy; Z79.52 Long term (current) use of systemic steroids; Z79.4 Long term (current) use of insulin; Z79.82 Long term (current) use of aspirin; Z79.890 Hormone replacement therapy; Z79.891 Long term (current) use of opiate analgesic
CPT/HCPCS: 99211

== ENCOUNTER → 2020-07-05 | Outpatient (CLI) | payer MEDICARE, BC ==
--- NOTE | 2020-07-05 11:18 | CT ---
EXAMINATION TYPE: CT thoracic spine wo con DATE OF EXAM: 07/05/2020 COMPARISON: 2 view chest x-ray May 18, 2020. HISTORY: Post laminectomy syndrome. History of 6 prior back surgeries with persistent back pain. CT DLP: 1097.7 mGycm Automated exposure control for dose reduction was used. FINDINGS: There is associated scoliosis that is levoconvex curvature in the upper thoracic spine and dextroconvex in curvature in the mid to lower thoracic spine. Spine is straightened on sagittal image s. Vertebral body heights are maintained. [id number] disc space narrowing with vacuum disc phen omenon at T10-T11 level. Moderate multilevel anterior and lateral spurring greatest right aspect of t he mid thoracic spine and anterior aspect in the mid to lower thoracic spine and left aspect and the inferior thoracic spine. Severe disc space narrowing with posterior spurring effacing anterior thecal sac and marginal spurrin g causing moderate to severe bilateral neural foraminal narrowing at C6-C7 level on axial image 5 and sagittal image 26. Small spur effacing the anterior thecal sac at T4-T5 level axial image 39. Posterior spur disc complex effacing the anterior thecal sac at T10-T11 level axial image 91 and sagi ttal image 28. [id number] multilevel facet arthropathy in the lower thoracic spine on axial images. Visualized lungs show chronic emphysematous and pulmonary fibrotic changes with basilar honeycombing or fibrosis. Cardiomegaly with multi lead pacemaker/AICD noted on localizer. Mild/moderate calcified plaque in the visualized aorta. IMPRESSION: As above.
== END | disposition home or self-care (01) ==
LOC: RADCTMAIN 07-01 15:19
PROVIDERS: ATTEND Anesthesiology
DX: M48.061 Spinal stenosis, lumbar region without neurogenic claudication (principal); M96.1 Postlaminectomy syndrome, not elsewhere classified; M46.96 Unspecified inflammatory spondylopathy, lumbar region
CPT/HCPCS: 72128

== ENCOUNTER → 2020-07-13 | Outpatient (CLI) | payer MEDICARE, BC ==
[2020-07-13 10:54] VITALS: BP 158/72; PULSE 72; RESP 18; TEMP 97.6
--- NOTE | 2020-07-13 12:15 | P.PAINPG ---
Subjective Progress Note Date: 07/13/20 his is a follow up visit for this 80 year old male, with a chronic history of severe low back pain started more than 30 years ago, after falling accident, and from that time on patient was dealing with back pain issues, patient had 6 back surgeries, he is diagnosed with failed back surgery syndrome and lumbar area, and lumbar spondylosis with lumbar facet arthropathy, and sacroiliitis, status post caudal epidural steroid injection with lysis visit of the lesions 2 done on 05/19/2020 and 06/02/2020. In the past, he has undergone RFA of the medial branch lumbar area, and sacroiliac joint steroid injection unfortunately with no significant relief. We referred him to [facility] in [place] for consideration of SCS trial. He returns for follow up today. Patient unfortunately is a significant amount of pain and feels nothing is helping with this pain. He is scheduled to see [facility] in [place] for consideration of spinal cord stim trial this month. Patient is unsure which medications he has been taking from our clinic, recalls gabapentin and low back but is unsure of anything that is helpful. At this point he would like a refill the gabapentin and mobic. Pain is primarily located in the low back, rated as 9/10, described as aching, worse with walking and any movements. He does not describe any relieving factors. He is very frustrated with the pain level and the fact that no medications or procedures have helped him. He denies any fever or night sweats. Denies any change in the bowel movement or urination, he is able to ambulate on his own he does not use any walker he does not use a cane, he denies any numbness or tingling sensation in the lower extremities Review of systems is negative for chest pain, shortness of breath, new onset weakness, numbness/tingling, abdominal pain, malaise, fever, night sweats, chills, homicidal or suicidal ideation, or bowel or bladder incontinence. Physical exam: Vitals: Reviewed in EMR GENERAL: Well appearing, in no acute distress PSYCH: Mood and affect is appropriate. Awake, alert, and oriented SKIN: Skin color, texture, turgor normal, no rashes or lesions HEENT: Normocephalic, atraumatic. EOM intact CV: No pedal edema RESP: Respirations are unlabored, no audible wheezing GI: Abdomen non-distended MUSCULOSKELETAL: Bilateral lower extremity strength is normal and symmetric. No atrophy or tone abnormalities are noted. Lumbar spine: Straight leg raising in the sitting position is negative for radicular pain. Tenderness to palpation over the lumbar spine and paraspinous muscles bilaterally. Positive for pain with facet loading. Surgical scar visible and well-healed Buttocks:pain to palpation over the PSIS Extremities: Peripheral joint ROM is full and pain free without obvious instability or laxity in all four extremities. No edema or skin discolorations noted. NEUR: Bilateral lower extremity coordination and muscle stretch reflexes are physiologic and symmetric. Negative clonus bilaterally. No loss of sensation is noted. Assessment and Plan Plan: Assessment and plan= chronic severe low back pain secondary to failed back surgery syndrome lumbar area Lumbar spondylosis with lumbar facet arthropathy, sacroiliitis. Patient has undergone several different procedures including caudal epidural steroid injection with lysis of adhesions, RFA of the medial branch lumbar area, sacroiliac joint steroid injection with no benefit noted from any procedure. He has also trialed different medications including neuropathic pain medications and opioids with no significant benefit. Today, we had a lengthy discussion regarding options for low back pain. Since he has failed multiple medication options and multiple interventional pain procedures, he had been referred to [place] [facility] for consideration of spinal cord stimulator. He is scheduled to see them this month as well. I refilled gabapentin 100 mg twice a day and Mobic 7.5 once a day. He is very frustrated in general this pain control and walked out of the interview just due to the fact that he is having so much pain. Of note he has a defibrillator. Follow-up: With [facility] in [place]. He will return to our pain clinic when necessary PQRS Measure Charge Sheet PQRS Narrative: Smoking Status Former smoker Pain Intensity [Lower Back] 8 Hx Alcohol Use (MH) No Controlled Substance Measures - Controlled Substance Measures Is patient prescribed a controlled substance at discharge?: No PQRS Measure Charge Sheet Measure #226: Tobacco Use: Screen & Cessation Intervention: Pt not a tobacco user Measure #111: Pneumonia Vaccination: Pneumococcal vaccine administered or previously received Measure #47: Advance Care Plan: Advance care planning discussed & documented, pt chose/unable to give Measure #412: Opioid Treatment Agreement: Documented signed opioid trtmnt agreemnt min once during opioid trtmnt Measure #408: Opioid Therapy Follow-up Evaluation: Patient had f/u eval minimum every 3 months during opioid therapy Measure #131: Pain Assessment & Follow-up: Pain positive & plan documented, Follow-up scheduled Measure #431: Unhealthy Alcohol Use Preventative Care & Scrn: Patient not identified as an unhealthy alcohol user PQRS Narrative: Smoking Status Former smoker Pain Intensity [Lower Back] 10 Hx Alcohol Use (MH) No Home Medications: Ambulatory Orders Cholecalciferol [Vitamin D3 (25 Mcg = 1000 Iu)] 2,000 unit PO DAILY 09/23/17 Insulin Aspart [NovoLOG Flexpen] See Protocol SQ AC-TID PRN 11/24/18 Omeprazole [PriLOSEC] 20 mg PO QAM 11/24/18 Torsemide [Demadex] 10 mg PO QAM 11/24/18 Pravastatin Sodium [Pravachol] 40 mg PO HS 02/27/19 predniSONE 10 mg PO QAM 10/06/19 allopurinoL [Zyloprim] 100 mg PO AC-SUPPER 10/09/19 Carvedilol [Coreg] 6.25 mg PO BID 11/30/19 Levothyroxine Sodium [Synthroid] 25 mcg PO QAM 12/11/19 Insulin Detemir [Levemir Flextouch] 36 unit SQ HS 02/23/20 Aspirin [Adult Low Dose Aspirin EC] 81 mg PO DAILY 03/23/20 HYDROcodone/APAP 7.5-325MG [[place] 7.5-325] 1 tab PO Q4H PRN 05/12/20 Gabapentin [Neurontin] 100 mg PO BID 30 Days #60 cap 07/13/20 Meloxicam [Mobic] 7.5 mg PO DAILY 30 Days #30 tab 07/13/20 Controlled Substance Measures - Controlled Substance Measures Is patient prescribed a controlled substance at discharge?: No
== END | disposition home or self-care (01) ==
LOC: PNWHC3 10:23
PROVIDERS: ATTEND Anesthesiology
DX: G89.29 Other chronic pain (principal); M47.816 Spondylosis without myelopathy or radiculopathy, lumbar region; M96.1 Postlaminectomy syndrome, not elsewhere classified; M46.1 Sacroiliitis, not elsewhere classified; Z87.891 Personal history of nicotine dependence; Z79.4 Long term (current) use of insulin; Z79.890 Hormone replacement therapy; Z79.82 Long term (current) use of aspirin; Z79.891 Long term (current) use of opiate analgesic; Z79.1 Long term (current) use of non-steroidal anti-inflammatories (NSAID); Z79.899 Other long term (current) drug therapy
CPT/HCPCS: 99211

== ENCOUNTER → 2020-07-25 | Outpatient (CLI) | payer MEDICARE, BC ==
[2020-07-25 07:56] VITALS: BP 112/72; PULSE 86; RESP 16; TEMP 98.1
--- NOTE | 2020-07-26 09:44 | P.PAINPG ---
Subjective Progress Note Date: 07/25/20 his is a follow up visit for this 80 year old male, with a chronic history of severe low back pain started more than 30 years ago, after falling accident, and from that time on patient was dealing with back pain issues, patient had 6 back surgeries, he is diagnosed with failed back surgery syndrome and lumbar area, and lumbar spondylosis with lumbar facet arthropathy, and sacroiliitis, status post caudal epidural steroid injection with lysis visit of the lesions 2 done on 05/19/2020 and 06/02/2020. In the past, he has undergone RFA of the medial branch lumbar area, and sacroiliac joint steroid injection unfortunately with no significant relief. We referred him to [place] [facility] in [place] for consideration of SCS trial. He returns for follow up today. Patient unfortunately is a significant amount of pain and feels nothing is helping with this pain. He is scheduled to see [place] [facility] in [place] for consideration of spinal cord stim trial this month. Patient is unsure which medications he has been taking from our clinic, recalls gabapentin and low back but is unsure of anything that is helpful. At this point he would like a refill the gabapentin and mobic. Pain is primarily located in the low back, rated as 9/10, described as aching, worse with walking and any movements. He does not describe any relieving factors. He is very frustrated with the pain level and the fact that no medications or procedures have helped him. He denies any fever or night sweats. Denies any change in the bowel movement or urination, he is able to ambulate on his own he does not use any walker he does not use a cane, he denies any numbness or tingling sensation in the lower extremities Review of systems is negative for chest pain, shortness of breath, new onset weakness, numbness/tingling, abdominal pain, malaise, fever, night sweats, chills, homicidal or suicidal ideation, or bowel or bladder incontinence. Patient had the spinal cord stimulator percutaneous lead trial done last week at [facility], and he is here today for percutaneous lead removal and f or documentation about the results of the spinal cord stimulator , patient reported that he had almost 30% improvement of his pain, he is not very satisfied with the results, he is not willing to proceed with the permanent implant because of inadequate coverage, for this reason I don't recommend the implantation of the permanent leads Physical exam: Vitals: Reviewed in EMR GENERAL: Well appearing, in no acute distress PSYCH: Mood and affect is appropriate. Awake, alert, and oriented SKIN: Skin color, texture, turgor normal, no rashes or lesions HEENT: Normocephalic, atraumatic. EOM intact CV: No pedal edema RESP: Respirations are unlabored, no audible wheezing GI: Abdomen non-distended MUSCULOSKELETAL: Bilateral lower extremity strength is normal and symmetric. No atrophy or tone abnormalities are noted. Lumbar spine: Straight leg raising in the sitting position is negative for radicular pain. Tenderness to palpation over the lumbar spine and paraspinous muscles bilaterally. Positive for pain with facet loading. Surgical scar visible and well-healed Buttocks:pain to palpation over the PSIS Extremities: Peripheral joint ROM is full and pain free without obvious insta bility or laxity in all four extremities. No edema or skin discolorations noted. NEUR: Bilateral lower extremity coordination and muscle stretch reflexes are physiologic and symmetric. Negative clonus bilaterally. No loss of sensation is noted. Assessment and plan= chronic severe low back pain secondary to failed back surgery syndrome lumbar area Lumbar spondylosis with lumbar facet arthropathy, sacroiliitis. Patient has undergone several different procedures including caudal epidural steroid injection with lysis of adhesions, RFA of the medial branch lumbar area, sacroiliac joint steroid injection with no benefit noted from any procedure. Patient is not a candidate for spinal cord stimulator implant, because he got 30% improvement of his pain after the trial. Recommend continue Neurontin 100 mg twice a day and Mobic 7.5 mg daily and patient given prescription for [place] 7.5/325 every 8 hours dispense 90 . Patient signed a narcotic agreement, and I discussed with the patient the risks and benefits of opioid Lengthy discussion with the patient about side effect of the opioid . Procedure note= under strict sterile technique the back prepped with chlorhexidine 3, using suture removal kit I was able to remove the percutaneous lead under sterile technique to leads removed and the tip was intact, and a dressing was applied The procedure area was cleaned is no sign of infection no discharge no erythema, and patient will follow up in the pain clinic in 4 weeks Objective - Vital Signs Vital signs: Vital Signs Temp 98.1 F 07/25/20 07:52 Pulse 86 07/25/20 07:52 Resp 16 07/25/20 07:52 BP 112/72 07/25/20 07:52 Pulse Ox 97 07/25/20 07:52 PQRS Measure Charge Sheet Measure #130: Documentation of Current Meds in Medical Chart: Patient's medications documented in chart Measure #226: Tobacco Use: Screen & Cessation Intervention: Pt not a tobacco user Measure #111: Pneumonia Vaccination: Pneumococcal vaccine administered or previously received Measure #47: Advance Care Plan: Advance care planning discussed & documented, pt chose/unable to give Measure #412: Opioid Treatment Agreement: Documented signed opioid trtmnt agreemnt min once during opioid trtmnt Measure #408: Opioid Therapy Follow-up Evaluation: Patient had f/u eval minimum every 3 months during opioid therapy Measure #317: Preventitive Care & Scrn High Bld Press & F/U: Normal blood pressure, f/u not required Measure #128: Body Mass Index (BMI) Screening & Follow-up: BMI documented ABOVE normal parameters - f/u documented Measure #131: Pain Assessment & Follow-up: Pain positive & plan documented, Follow-up scheduled Measure #431: Unhealthy Alcohol Use Preventative Care & Scrn: Patient identified as unhealthy alcohol user; counseling given PQRS Narrative: Smoking Status Former smoker Narcotic Agreement Date Signed 05/19/20 Blood Pressure 112/72 Pain Intensity [Generalized] 8 Scale Used Numeric (1 - 10) Hx Alcohol Use (MH) No Home Medications: Ambulatory Orders Cholecalciferol [Vitamin D3 (25 Mcg = 1000 Iu)] 2,000 unit PO DAILY 09/23/17 Insulin Aspart [NovoLOG Flexpen] See Protocol SQ AC-TID PRN 11/24/18 Omeprazole [PriLOSEC] 20 mg PO QAM 11/24/18 Torsemide [Demadex] 10 mg PO QAM 11/24/18 Pravastatin Sodium [Pravachol] 40 mg PO HS 02/27/19 predniSONE 10 mg PO QAM 10/06/19 allopurinoL [Zyloprim] 100 mg PO AC-SUPPER 10/09/19 Carvedilol [Coreg] 6.25 mg PO BID 11/30/19 Levothyroxine Sodium [Synthroid] 25 mcg PO QAM 12/11/19 Insulin Detemir [Levemir Flextouch] 36 unit SQ HS 02/23/20 Aspirin [Adult Low Dose Aspirin EC] 81 mg PO DAILY 03/23/20 HYDROcodone/APAP 7.5-325MG [[place] 7.5-325] 1 tab PO Q8HR PRN 05/12/20 Gabapentin [Neurontin] 100 mg PO BID 30 Days #60 cap 07/13/20 Meloxicam [Mobic] 7.5 mg PO DAILY 30 Days #30 tab 07/13/20 Controlled Substance Measures - Controlled Substance Measures Is patient prescribed a controlled substance at discharge?: Yes
== END | disposition home or self-care (01) ==
LOC: PNWHC3 07:30
PROVIDERS: ATTEND Specialist
DX: M47.816 Spondylosis without myelopathy or radiculopathy, lumbar region (principal); M46.1 Sacroiliitis, not elsewhere classified; M96.1 Postlaminectomy syndrome, not elsewhere classified; G89.29 Other chronic pain; Z87.891 Personal history of nicotine dependence; Z79.4 Long term (current) use of insulin; Z79.890 Hormone replacement therapy; Z79.82 Long term (current) use of aspirin; Z79.899 Other long term (current) drug therapy
CPT/HCPCS: 99211

== ENCOUNTER → 2020-08-10 | Outpatient (CLI) | payer MEDICARE, BC ==
--- NOTE | 2020-08-10 08:44 | CT ---
EXAMINATION TYPE: CT lumbar spine wo con DATE OF EXAM: 08/10/2020 8:19 AM COMPARISON: CT lumbar spine February 26, 2018. Outside lumbar spine x-ray July 29, 2020 HISTORY: Low back pain into right thigh with right leg weakness, history of prior surgery L4-L5 level all probation. CT DLP: 850.5 mGycm Automated exposure control for dose reduction was used. Unenhanced CT of the lumbar spine was performed. Bone and soft tissue window settings are submitted as well as coronal and sagittal reconstructions. There are 5 lumbar type vertebra redemonstrated. Persistent levoconvex scoliosis centered at L2-L3 le becca. Persistent loss of normal lumbar lordosis on sagittal images. Stable grade 1 anterolisthesis L3 on L4 and retrolisthesis L4 on L5. Vertebral body heights are maintained. Since prior CT there is int erval surgical change posteriorly at L3 and L4 levels sagittal image 28 for reference. Persistent lester rly advanced disc space narrowing L5-S1 level with posterior spur. Additional multilevel dqog-tw-xtzi rate disc space narrowing along with moderate multilevel anterior and lateral spurring is redemonstra cee. Without interval change. Findings greatest along the right aspect. Vacuum disc phenomenon noted L3-L4 and L4-L5 level similar to prior. At T12-L1, stable small posterior spur disc complex mildly effacing anterior thecal sac. At L1-L2, stable mild facet degenerative change with bkfw-er-aabtitde broad disc bulge mildly effacin g the anterior thecal sac with mild right and dsvx-dk-caqhfxgn left neural foraminal stenosis redemon strated. No significant interval change. At L2-L3, interval posterior surgery. Persistent moderate left-sided facet arthropathy. Surrounding scar tissue. Interval improvement in posterior effacement. Moderate broad disc bulge tez ins present. Stable moderate right and mild left-sided neural foraminal narrowing. At L3-L4, persistent moderate to severe facet arthropathy. Interval posterior osseous resection. Spon dylolisthesis with moderate to severe broad-based disc bulge effaces the anterior thecal sac. Persist ent severe right and moderate left-sided neural foraminal narrowing.Progression of right-sided narrow ing noted, sagittal image 24 shows definitive exiting right L3 nerve root effacement. At L4-L5, persistent sgke-ad-gqnbrrrh bilateral facet arthropathy. Interval posterior osseous resecti on. Spondylolisthesis with mild/moderate broad-based disc protrusion mildly effaces left anterolatera l thecal sac. Persistent severe left and moderate right neural foraminal stenosis. For reference sagi ttal image 33. Effacement exiting left L4 nerve is present. No significant change from prior of this finding. At L5-S1, moderate left greater than right facet arthropathy bilaterally redemonstrated. Left paracen tral spur disc complex effaces central left S1 nerve similar to prior axial image 73. Persistent mode cuix-ef-cuumoc left and mild right-sided neural foraminal narrowing. Suspect prior right-sided lamino antwan here similar to prior. Spurring and narrowing right greater than left bilateral sacroiliac joints is redemonstrated. Moderat e calcified plaque of the abdominal aorta extends into branch vessels. IMPRESSION: Underlying levoconvex scoliosis. Interval successful multilevel posterior decompression m id to lower lumbar spine. Alignment stable. Multilevel degenerative changes redemonstrated as detaile d above.
== END | disposition home or self-care (01) ==
LOC: RADCTMAIN 07:54
PROVIDERS: ATTEND Orthopaedic Surgery
DX: M47.896 Other spondylosis, lumbar region (principal); M41.9 Scoliosis, unspecified; Z91.048 Other nonmedicinal substance allergy status
CPT/HCPCS: 72131

== ENCOUNTER 2020-08-16 11:41 | Day surgery (SDC) | payer MEDICARE, BC ==
[2020-08-15 13:15] VITALS: BMI 25.4
[2020-08-16 12:06] VITALS: TEMP 98.3
[2020-08-16 12:08] LABS: Glucose,Whole Blood 180 mg/dL (75-99)
[2020-08-16] MEDS ORDERED: LACTATED RINGERS 1,000 ML IV ONE (12:10)
[2020-08-16] MEDS ORDERED: ROPIVACAINE 5MG/ML 20ML VIAL ONE (12:46)
[2020-08-16] MEDS ORDERED: TRIAMCINOLONE ACETONIDE 40 MG/ML 1 ML VIAL ONE (12:46)
[2020-08-16] MEDS ORDERED: MIDAZOLAM 2 MG/2 ML VIAL ONE (12:46)
[2020-08-16 13:07] VITALS: PULSE 60; RESP 16
[2020-08-16] MEDS ORDERED: IV FLUID CONTINUATION 700 ML IV ONE (13:10)
[2020-08-16 13:22] VITALS: BP 175/72
--- NOTE | 2020-08-16 15:07 | FL ---
Fluoroscopy HISTORY: Pain 7 seconds fluoroscopy time supplied to the referring clinician. 1 intraoperative C-arm images docume nt the procedure. See dictated report from anesthesia.
--- NOTE | 2020-08-17 11:59 | P.PCN ---
Date of Procedure: 08/16/20 Description of Procedure: Preoperative diagnoses: rightsacroilitis Postoperative diagnoses: right sacroilitis. Procedure: right sacroiliac joint steroid injection under fluoroscopic guidance. Surgeon: Brodie Gagnon MD Anesthesia: [2 mL of 1% lidocaine and moderate sedation per [facility] gu[facility] ], sedation time 7 min Fluoroscopy was used for the procedure and fluoroscopic images were saved to the radiology portion of the patient's chart. EBL: None Procedure indication: The patient had a history of severe chronic low back pain, diagnosed with sacroiliitis unresponsive to conservative treatment. Procedure description: The patient was seen and identified in the preoperative holding area, risks and benefits and alternative of the procedure and possible complications discussed with the patient, and patient agreed with the preceding, patient signed the consent, an IV was started, and vital signs were monitored and were stable throughout the procedure, patient was placed in the prone position on table and the lumbosacral area was prepped and draped with a sterile fashion, vital signs were closely monitored during the procedure, the fluoroscopy camera was placed in the contralateral oblique view on the right sacroiliac joint and the lower part of the joint was identified . Then the skin and subcutaneous tissue was anesthetized using 2 mL of 1% lidocaine then a 22- gauge Quincke-type spinal needle advanced slowly under fluoroscopy and placed in the posterior and inferior border of the right sacroiliac joint, placement confirmed with AP and lateral view, and after appropriate needle placement confirmed and after negative aspiration for heme, 1 mL of Isovue 200 was inject ed revealing intra-articular spread. Then a solution consisting of 3ml of ropivacaine 0.5% and 40 mg of Kenalog injected after negative aspiration, no paresthesia during the injection, no resistance to injection, and the needle was removed. The procedure was then repeated on the left side. Total of 40 mg of Kenalog was used for the procedure. Patient tolerated the procedure well without any complication. The patient was returned to supine position after the back was cleaned and a Band-Aid applied, the patient was transported to recovery room in stable condition and monitored for 30 minutes before being discharged home. The patient will follow up with the pain clinic in a few weeks
== END 2020-08-16 13:38 | disposition home or self-care (01) ==
LOC: ORPAIN 11:41
PROVIDERS: ATTEND Anesthesiology
DX: G89.29 Other chronic pain (principal); M46.1 Sacroiliitis, not elsewhere classified; M54.5 Low back pain; E11.9 Type 2 diabetes mellitus without complications; Z91.041 Radiographic dye allergy status; Z88.0 Allergy status to penicillin; Z88.1 Allergy status to other antibiotic agents
CPT/HCPCS: J2250; J3301; J2795; G0260; 27096

== ENCOUNTER → 2020-08-22 | Outpatient (CLI) | payer MEDICARE, BC ==
--- NOTE | 2020-08-16 13:00 | P.PCN ---
Date of Procedure: 08/16/20 Description of Procedure: Preoperative diagnoses: rightsacroilitis Postoperative diagnoses: right sacroilitis. Procedure: right sacroiliac joint steroid injection under fluoroscopic guidance. Surgeon: Brodie Gagnon MD Anesthesia: [2 mL of 1% lidocaine and moderate sedation per [facility] ], sedation time 7 min Fluoroscopy was used for the procedure and fluoroscopic images were saved to the radiology portion of the patient's chart. EBL: None Procedure indication: The patient had a history of severe chronic low back pain, diagnosed with sacroiliitis unresponsive to conservative treatment. Procedure description: The patient was seen and identified in the preoperative holding area, risks and benefits and alternative of the procedure and possible complications discussed with the patient, and patient agreed with the preceding, patient signed the consent, an IV was started, and vital signs were monitored and were stable throughout the procedure, patient was placed in the prone position on table and the lumbosacral area was prepped and draped with a sterile fashion, vital signs were closely monitored during the procedure, the fluoroscopy camera was placed in the contralateral oblique view on the right sacroiliac joint and the lower part of the joint was identified . Then the skin and subcutaneous tissue was anesthetized using 2 mL of 1% lidocaine then a 22- gauge Quincke-type spinal needle advanced slowly under fluoroscopy and placed in the posterior and inferior border of the right sacroiliac joint, placement confirmed with AP and lateral view, and after appropriate needle placement confirmed and after negative aspiration for heme, 1 mL of Isovue 200 was inject ed revealing intra-articular spread. Then a solution consisting of 3ml of ropivacaine 0.5% and 40 mg of Kenalog injected after negative aspiration, no paresthesia during the injection, no resistance to injection, and the needle was removed. The procedure was then repeated on the left side. Total of 40 mg of Kenalog was used for the procedure. Patient tolerated the procedure well without any complication. The patient was returned to supine position after the back was cleaned and a Band-Aid applied, the patient was transported to recovery room in stable condition and monitored for 30 minutes before being discharged home. The patient will follow up with the pain clinic in a few weeks
[2020-08-22 08:47] VITALS: BP 152/61; PULSE 71; RESP 18; TEMP 98
--- NOTE | 2020-08-22 09:41 | P.PAINPG ---
Subjective Progress Note Date: 08/22/20 This is a follow-up visit for this 17-year-old years old male with a chronic history of severe low back pain is diagnosed with failed back surgery syndrome lumbar area, lumbar spondylosis with lumbar facet arthropathy and sacroiliitis, patient had no benefit from interventional pain management, and he feels spinal cord stimulator trial, recently we did right sacroiliac joint steroid injection patient reported that he had only 20% benefit from it , he continued to have severe pain, the pain increases with any activity, the intensity of the pain interferes with the quality of life Objective - Vital Signs Vital signs: Vital Signs Temp 98 F 08/22/20 08:43 Pulse 71 08/22/20 08:43 Resp 18 08/22/20 08:43 BP 152/61 08/22/20 08:43 Pulse Ox 100 08/22/20 08:43 - Exam . -Constitutiona : Cooperative , not in acute distress . -HEENT : nech : supple , no Lymphadenopathy , normal thyroid size . : eyes : no ptosis , no icterus, no photophobia . - neurologic : Cranial nerve II to XII intact , no focal neurological deffecit . -psychatric : alert , oriented X 3 , appropriate affect , intact judgment and insight . -Lymphatic : no Lymphadenopathy . - musculoskeltal : Lumber spine moter stegnth lower extremities ,thigh and legs 4-5/5 Right side , 4- 5/5 Left side deep tendon reflexes : normal Knee Jerk , normal ankle Jerk lumber facet Loading Test =positive Right , posiutive Left Range of motion of the lumbar spine Flexion 30 degrees, extension 10 degrees strait leg raising test = positive at 60 degree on the right side and is negative on the left side Fabere test= positive Right , and positive LT . Assessment and Plan Plan: Assessment and plan= chronic severe low back pain secondary to failed back surgery syndrome and lumbar area Lumbar spondylosis with lumbar facet arthropathy, Right sacroiliitis. Patient continued to have severe low back pain after RFA of the medial branch lumbar area, and after sacroiliac joint steroid injection Recommend continue current medication [place] 7.5/325 every 8 hours when necessary Narcotic agreement already signed. Risk and benefit of opioid Discussed with the patient. She will follow up with orthopedic/spine surgeon for evaluation for possible surgical interventions PQRS Measure Charge Sheet Measure #130: Documentation of Current Meds in Medical Chart: Patient's medications documented in chart Measure #226: Tobacco Use: Screen & Cessation Intervention: Pt not a tobacco user Measure #111: Pneumonia Vaccination: Pneumococcal vaccine administered or previously received Measure #47: Advance Care Plan: Advance care planning discussed & documented, pt chose/unable to give Measure #412: Opioid Treatment Agreement: Documented signed opioid trtmnt agreemnt min once during opioid trtmnt Measure #408: Opioid Therapy Follow-up Evaluation: Patient had f/u eval minimum every 3 months during opioid therapy Measure #317: Preventitive Care & Scrn High Bld Press & F/U: Pre-hypertensive or hypertensive BP documented, pt will f/u with PCP Measure #128: Body Mass Index (BMI) Screening & Follow-up: BMI documented within normal parameters Measure #131: Pain Assessment & Follow-up: Pain positive & plan documented, Follow-up scheduled Measure #431: Unhealthy Alcohol Use Preventative Care & Scrn: Patient not identified as an unhealthy alcohol user PQRS Narrative: Smoking Status Former smoker Narcotic Agreement Date Signed 05/19/20 Blood Pressure 152/61 Pain Intensity [Back] 5 Scale Used Numeric (1 - 10) Hx Alcohol Use (MH) No Home Medications: Ambulatory Orders Cholecalciferol [Vitamin D3 (25 Mcg = 1000 Iu)] 2,000 unit PO DAILY 09/23/17 Insulin Aspart [NovoLOG Flexpen] See Protocol SQ AC-TID PRN 11/24/18 Omeprazole [PriLOSEC] 20 mg PO QAM 11/24/18 Torsemide [Demadex] 10 mg PO QAM 11/24/18 Pravastatin Sodium [Pravachol] 40 mg PO HS 02/27/19 predniSONE 10 mg PO QAM 10/06/19 allopurinoL [Zyloprim] 100 mg PO AC-SUPPER 10/09/19 Carvedilol [Coreg] 6.25 mg PO BID 11/30/19 Levothyroxine Sodium [Synthroid] 25 mcg PO QAM 12/11/19 Insulin Detemir [Levemir Flextouch] 36 unit SQ HS 02/23/20 Aspirin [Adult Low Dose Aspirin EC] 81 mg PO DAILY 03/23/20 HYDROcodone/APAP 7.5-325MG [[place] 7.5-325] 1 tab PO Q8HR PRN #90 tab 08/22/20 HYDROcodone/APAP 7.5-325MG [[place] 7.5-325] 1 tab PO Q8HR PRN 30 Days #90 tab 08/22/20 Controlled Substance Measures - Controlled Substance Measures Is patient prescribed a controlled substance at discharge?: Yes
== END | disposition home or self-care (01) ==
LOC: PNWHC3 08:36
PROVIDERS: ATTEND Specialist
DX: G89.29 Other chronic pain (principal); M47.816 Spondylosis without myelopathy or radiculopathy, lumbar region; M46.1 Sacroiliitis, not elsewhere classified; M96.1 Postlaminectomy syndrome, not elsewhere classified; Z98.890 Other specified postprocedural states; Z87.891 Personal history of nicotine dependence; Z79.4 Long term (current) use of insulin; Z79.82 Long term (current) use of aspirin
CPT/HCPCS: 99211

== ENCOUNTER → 2020-09-26 | Outpatient (CLI) | payer MEDICARE, BC | END | disposition home or self-care (01) | LOC: LABPAT 09:24 | PROVIDERS: ATTEND Orthopaedic Surgery | DX: Z01.812 Encounter for preprocedural laboratory examination (principal); M41.86 Other forms of scoliosis, lumbar region; M47.816 Spondylosis without myelopathy or radiculopathy, lumbar region; Z79.01 Long term (current) use of anticoagulants | CPT/HCPCS: 36415; 80051; 85025; 85610; 86850; 86900; 86901; 87070 ==

== ENCOUNTER 2020-10-04 05:45 | Inpatient (IN) | payer MEDICARE, BC ==
[2020-09-26 10:52] LABS: Anisocytosis Slight; Basophils # (A) 0.1 k/uL (0-0.2); Basophils % (A) 1 %; Eosinophils # (A) 0.3 k/uL (0-0.7); Eosinophils % (A) 2 %; HCT 42.3 % (39.0-53.0); HGB 13.1 gm/dL (13.0-17.5); Hypochromasia Slight; Lymphocytes # (A) 6.2 k/uL (1.0-4.8); Lymphocytes % (A) 36 %; MCH 27.9 pg (25.0-35.0); MCV 89.9 fL (80.0-100.0); Mean Platelet Volume 7.6; Monocytes # (A) 0.7 k/uL (0-1.0); Monocytes % (A) 4 %; Neutrophils # (A) 9.4 k/uL (1.3-7.7); Neutrophils % (A) 55 %; Platelet Count 313 k/uL (150-450); RDW 16.4 % (11.5-15.5); WBC 17.2 k/uL (3.8-10.6)
[2020-09-26 10:59] LABS: INR 0.9 (<1.2); Prothrombin Time 9.3 sec (9.0-12.0)
[2020-09-30 16:16] VITALS: BMI 27.3
[~2020-10-04 05:45] MED LIST changes: +ACETAMINOPHEN TAB 500 MG TAB PO ONE; +DEXAMETHASONE SOD PHOSPHATE 4 MG/ML 1 ML VIAL IV ONE; +GABAPENTIN 300 MG CAP PO ONE; -LACTATED RINGERS 1,000 ML IV SCH; +LIDOCAINE 1% (10MG/ML) FOR IV START INTRADERMA PRN; +MIDAZOLAM 2 MG/2 ML VIAL IV PRN; +ONDANSETRON 4 MG/2 ML VIAL IVP ONE; +TRANEXAMIC ACID 1,000 MG in SODIUM CHLORIDE 0.9% 100 ML IVPB ONE
[2020-10-04] MEDS: LACTATED RINGERS 1,000 ML IV SCH (06:21)
[2020-10-04 06:28] LABS: Glucose,Whole Blood 115 mg/dL (75-99)
[2020-10-04] MEDS ORDERED: MIDAZOLAM 2 MG/2 ML VIAL IVP ONE (06:38)
[2020-10-04] MEDS ORDERED: HYDROCORTISONE SUCCINATE 100 MG/2 ML VIAL IVP ONE (06:57)
[2020-10-04] MEDS ORDERED: TRANEXAMIC ACID 2,000 MG in SODIUM CHLORIDE 0.9% 80 ML IV ONE (07:00)
[2020-10-04] MEDS ORDERED: ETOMIDATE 2 MG/ML 10 ML VIAL ONE (07:21)
[2020-10-04] MEDS ORDERED: CALCIUM CHLORIDE 100 MG/ML 10 ML SYRINGE ONE (07:21)
[2020-10-04] MEDS ORDERED: INSULIN REGULAR 100 UNIT/ML VIAL ONE (07:21)
[2020-10-04] MEDS ORDERED: TRANEXAMIC ACID 1,000 MG/10 ML VIAL ONE (07:21)
[2020-10-04] MEDS ORDERED: ROCURONIUM 10 MG/ML (10 ML VIAL) IV ONE (07:21)
[2020-10-04] MEDS ORDERED: GLYCOPYRROLATE 0.2 MG/ML 2 ML VIAL ONE (07:21)
[2020-10-04] MEDS ORDERED: KETAMINE 10 MG/ML 20 ML VIAL ONE (07:21)
[2020-10-04] MEDS ORDERED: ALBUMIN HUMAN 5% (12.5gm) 250 ML BOTTLE IVPB ONE (07:21)
[2020-10-04] MEDS ORDERED: SUCCINYLCHOLINE CHLORIDE 100 MG/5 ML SYR IV ONE (07:21)
[2020-10-04] MEDS ORDERED: HYDROmorphone (PF) 1 MG/ML ONE (07:21)
[2020-10-04] MEDS ORDERED: PROPOFOL 10 MG/ML 20 ML VIAL IV ONE (07:21)
[2020-10-04] MEDS ORDERED: HEPARIN SODIUM,PORCINE 10,000 UNIT/ML 1 ML VIAL ONE (07:21)
[2020-10-04] MEDS ORDERED: PHENYLEPHRINE-0.9% NACL SYG 1 MG/10 ML SYRINGE ONE (07:21)
[2020-10-04] MEDS ORDERED: ceFAZolin 1,000 MG VIAL ONE (07:21)
[2020-10-04] MEDS ORDERED: LIDOCAINE 1% INJ 10MG/ML (20 ML MDV) ONE (07:21)
[2020-10-04] MEDS ORDERED: SODIUM CHLORIDE 0.9% IRRIG 1,000 ML BTL IRRIGATION ONE (07:21)
[2020-10-04] MEDS ORDERED: ePHEDrine SULFATE/0.9% NACL/PF 50 MG/5 ML SYRINGE IV ONE (07:21)
[2020-10-04] MEDS ORDERED: fentaNYL (PF) 50 MCG/ML 2 ML AMP ONE (07:21)
[2020-10-04] MEDS ORDERED: SODIUM CHLORIDE 0.9% 100 ML BAG ONE ×2 (07:21)
[2020-10-04 09:03] LABS: Anisocytosis Slight; HCT 30.9 % (39.0-53.0); HGB 10.3 gm/dL (13.0-17.5); MCH 28.6 pg (25.0-35.0); MCHC 33.4 g/dL (31.0-37.0); MCV 85.5 fL (80.0-100.0); Mean Platelet Volume 7.7; Platelet Count 303 k/uL (150-450); RBC 3.62 m/uL (4.30-5.90); RDW 16.6 % (11.5-15.5); WBC 17.4 k/uL (3.8-10.6)
[2020-10-04] MEDS ORDERED: BUPIVACAINE (PF) 0.25% 30 ML VIAL SQ ONE (09:03)
[2020-10-04] MEDS ORDERED: THROMBIN (BOVINE) 5,000 UNIT VIAL TOPICAL ONE ×2 (09:04→09:05)
[2020-10-04] MEDS ORDERED: GELATIN SPONGE,ABSORB (LARGE) 1 EACH SPONGE TOPICAL ONE (09:06)
[2020-10-04] MEDS ORDERED: GELATIN SPONGE,ABSORBABLE 1 GM POWDER TOPICAL ONE (09:06)
[2020-10-04 09:11] LABS: Potassium 4.5 mmol/L (3.5-5.1)
[2020-10-04 10:14] LABS: Glucose,Whole Blood 131 mg/dL (75-99)
[2020-10-04 10:52] LABS: Anisocytosis Slight; MCH 28.6 pg (25.0-35.0); MCHC 33.3 g/dL (31.0-37.0); MCV 85.8 fL (80.0-100.0); Mean Platelet Volume 7.9; Platelet Count 304 k/uL (150-450); RBC 3.49 m/uL (4.30-5.90); RDW 16.6 % (11.5-15.5); WBC 15.7 k/uL (3.8-10.6)
[2020-10-04 13:31] LABS: Glucose,Whole Blood 188 mg/dL (75-99)
[2020-10-04 13:49] LABS: Anisocytosis Slight; HCT 28.9 % (39.0-53.0); HGB 9.6 gm/dL (13.0-17.5); MCH 28.6 pg (25.0-35.0); MCHC 33.2 g/dL (31.0-37.0); Mean Platelet Volume 7.7; Platelet Count 267 k/uL (150-450); RBC 3.36 m/uL (4.30-5.90); RDW 16.7 % (11.5-15.5); WBC 18.1 k/uL (3.8-10.6)
[2020-10-04 14:30] LABS: Calcium 8.1 mg/dL (8.4-10.2); Potassium 5.6 mmol/L (3.5-5.1)
[2020-10-04] MEDS ORDERED: VANCOMYCIN 1,000 MG VIAL MISCELLANE ONE (14:49)
[2020-10-04 14:51] LABS: Allen Test Performed? Yes
[2020-10-04 14:52] LABS: ABG Base Excess -2.4 mmol/L; ABG HCO3 23 mmol/L (21-25); ABG Oxygen Saturation 99.6 % (94-97); ABG PCO2 44 mmHg (35-45); ABG PH 7.34 (7.35-7.45); ABG PO2 249 mmHg (83-108)
--- NOTE | 2020-10-04 15:19 | P.HPOR ---
History of Present Illness Chief Complaint: I have low back pain and cannot walk far anymore because my legs are weak Occupation: Retired Age: 80 year Height: 6' Weight: 204 lbs BP:130/74 BMI: 27.67 kg/m2 Physical Therapy: Yes How many sessions? several Did it help? temporary Injections: Yes How many? several with the most recent 06/16/2020 Did they help?temporary No Activity Modifications: unable to do daily activity without severe pain can only walk 50 ft before too painful. Brace: No This 80 year old male returns for a follow up on his low back pain and would like to discuss scheduling surgery. Patient notes right sided pain. He takes [place] as needed. Patient ambulates independently. He has done PT, injections, RF ablation, Nerve stimulator trial and nothing has helped his pain. He is frustrated due to this taking so much time and he says he has been dealing with this for over 2 years now. He has recently visited his Pulmonary, cardiology, and PCP doctors who have all cleared him to have a surgical procedure. He states he is done with the conservative measures, he is unable to perform his ADLs to his satisfaction and he wants to have surgery. He feels that he has done everything else possible and nothing has worked and while surgery is his last resort he feels that it will help him as nothing else has. His is in the room with him again today and she agrees as he is suffering and miserable at this time due to his back pain, leg pain, weakness in his LE, inability to ambulate more than 20 ft. The SI joint injections did NOT help him at all.He feels that he has tried all of the conservative measure possible and is tired of these things and getting the "run around" from people. He states he wants surgery and is ready for it as he will ever be. He understands that surgery is difficult and can be a long recovery and his is in the room and is supportive of him at this time. He denies any f/c/sob/cp at this time. Review of Systems 14 points review of systems completed and as stated in HPI or otherwise n egative. Past Medical History Past Medical History: CVA/TIA, Diabetes Mellitus, GERD/Reflux, Hearing Disorder / Deafness, Hyperlipidemia, Hypertension, Musculoskeletal Disorder, Pneumonia, Rheumatoid Arthritis (RA), Thyroid Disorder Additional Past Medical History / Comment(s): Hx CMP w/ BiVICD. Interstitial lung disease/rheumatoid lung, gout, CVA in 2006- no residual effects, hiatal hernia; bronchitis, states "had [place] virus, possibly lymes disease". chronic back pain, History of Any Multi-Drug Resistant Organisms: None Reported Past Surgical History: AICD, Appendectomy, Back Surgery, Heart Catheterization, Joint Replacement, Tonsillectomy Additional Past Surgical History / Comment(s): Biventricular AICD placement/[employer], battery change r/t recall, Back surgery 6, colonoscopy, past hx of pain clinic procedure, cataract sx, Oral sx "to smooth down bones in mouth." 01/18/20 RT TOTAL KNEE; 02/24/20 Repair Rt knee tendon. Past Anesthesia/Blood Transfusion Reactions: No Reported Reaction Additional Past Anesthesia/Blood Transfusion Reaction / Comment(s): blood transfusion-no reaction; BP was high when came in for his 1st pain procedure- procedure was canceled- states no problem since. Type of Cardiac Device: AICD Device Placement Date:: 2016 Smoking Status: Former smoker - Past Family History Father History Unknown: Yes Mother Family Medical History: Hyperlipidemia, Hypertension, Myocardial Infarction ([place]) Additional Family Medical History / Comment(s): . Medications and Allergies Home Medications Medication Instructions Recorded Confirmed Type Cholecalciferol [Vitamin D3 (25 2,000 unit PO DAILY 09/23/17 09/30/20 History Mcg = 1000 Iu)] Insulin Aspart [NovoLOG Flexpen] See Protocol SQ AC-TID PRN 11/24/18 09/30/20 H istory Omeprazole [PriLOSEC] 20 mg PO QAM 11/24/18 09/30/20 History Torsemide [Demadex] 10 mg PO QAM 11/24/18 09/30/20 History Pravastatin Sodium [Pravachol] 40 mg PO HS 02/27/19 09/30/20 History predniSONE 10 mg PO QAM 10/06/19 09/30/20 History allopurinoL [Zyloprim] 100 mg PO AC-SUPPER 10/09/19 09/30/20 History Carvedilol [Coreg] 6.25 mg PO BID 11/30/19 09/30/20 History Levothyroxine Sodium [Synthroid] 25 mcg PO QAM 12/11/19 09/30/20 History Insulin Detemir [Levemir Flextouch] 36 unit SQ HS 02/23/20 09/30/20 History Aspirin [Adult Low Dose Aspirin EC] 81 mg PO DAILY 03/23/20 09/30/20 History HYDROcodone/APAP 7.5-325MG [[place] 1 tab PO Q8HR PRN 30 Days #90 tab 08/22/20 Rx 7.5-325] Calcium Carbonate [Calcium] 600 mg PO BID 09/30/20 09/30/20 History Allergies Allergy/AdvReac Type Severity Reaction Status Date / Time amlodipine Allergy swelling Verified 09/30/20 16:09 of feet doxycycline Allergy Anaphylaxis Verified 09/30/20 16:09 Iodinated Contrast Media Allergy Anaphylaxis Verified 09/30/20 16:09 [Iodinated Contrast- Oral and IV Dye] iodine Allergy Anaphylaxis Verified 09/30/20 16:09 metronidazole [From Flagyl] Allergy Rash/Hives Verified 09/30/20 16:09 shrimp Allergy Rash/Hives Verified 09/30/20 16:09 acarbose AdvReac Abdominal Verified 09/30/20 16:09 Pain adhesive tape AdvReac SKIN PULLS Verified 09/30/20 16:09 OFF " amoxicillin trihydrate AdvReac Nausea & Verified 09/30/20 16:09 [From Augmentin] Vomiting potassium clavulanate AdvReac Nausea & Verified 09/30/20 16:09 [From Augmentin] Vomiting Physical Examination Osteopathic Statement: *. No significant issues noted on an osteopathic structu ral exam other than those noted in the History and Physical/Consult. General: Awake, alert, appropriate for age, in no acute distress. HEENT: No unusual neck masses around region of lateral neck triangle, thyroid, supraclavicular groove Heart: Regular rate and rhythm, normal S1, S2 and no murmur/gallop. Lungs: Clear to auscultation bilaterally with no use of accessory muscles. Extremities: Skin warm and dry without acute lesions, coloration, temperature, skin intact, no tenderness or erythema Integument: Hairy patches: Absent Dorsal skin dimples: Absent Cafe au lait spots: Absent Surgical incisions: Surgical incisions: well healed midline lumbar incision without pain on palpation Palpation: Palpation: Please see Pain drawing on Intake sheet for further detail. Midline spinal tenderness: yes lumbar sacral E6 Paralumbar tenderness: yes bilateral E6 Parathoracic tenderness: No E6 Buttocks tenderness: yes bilateral E6 Special findings: none POSTURAL and MUSCULO-SKELETAL EVALUATION: Coronal Balance: Neutral Recumbent testing: Patient is able to lay flat on back Sagittal Balance: Neutral Shoulder Profile: level Pelvic Girdle: level Neck ROM: Unrestricted Lumbar ROM: Unrestricted Shoulder ROM: Symmetric in abduction, ER/IR Hip ROM: Symmetric in abduction, adduction, ER/IR Knee ROM: Symmetric and intact in Flexion / extension Hands: Normal appearance Feet: Normal appearance VASCULAR STATUS : LEFT RIGHT Wrist Pulses intact intact Pedal Pulses (Dors. pedis & post.tibialis) intact intact Color normal normal Edema Absent Absent NEUROLOGIC EXAMINATION: Mental Status: Awake and alert, fully oriented, with normal attention, concentration and memory, and fluent, appropriate speech. Cranial Nerves: I: Olfactory not tested. II: Visual acuity normal, no visual field deficit noted with confrontation. III,IV: Normal pupillary reflexes & intact extraocular movements without nystagmus. V,: Intact symmetrical facial sensation. VII: Intact symmetrical facial motor movement VIII: Hearing intact. IX,X: Intact gag, swallow, & normal voice. XI: Sternocleidomastoid, trapezius function intact. XII: Tongue midline with normal movements. L'hermitte's Sign: Neg Sp[place]ling'Sign: Neg Cubital percussion test: Neg Lona-Tinel sign - Carpal region: Neg Straight Leg Raising: positive on the right with compression Crossed straight leg raise: negative O8 MOTOR EXAM (0-5/5, N/T) STRENGTH RIGHT LEFT Shoulder Abd (not part of the CANDACE score) 5 5 Elbow Flexors 5 5 Elbow Extensor 5 5 Wrist Dorsiflexors 5 5 Finger Abductor 5 5 Commercial Lines Manager 5 5 Hip Flexor (Not part of CANDACE Motor score) 5 5 Knee Flexor 5 5 Knee Extensor 5 5 Ankle dorsiflexor 5 5 Ankle plantarflexion 5 5 Extensor hallucis 5 5 REFLEXES(0-4/2, NT) RIGHT LEFT Upper Extremities 2 2 Lower Extremities 2 2 Pathological Reflexes RIGHT LEFT Modi's Absent Absent Clonus Absent Absent Muscle appearance: Normal tone, no faciculations Rectal Tone: not tested Sensory system (0-4, N/T) Test type RU ENID RL LL Joint-Position 2 2 2 2 Vibration 2 2 2 2 Pain & LT sense 2 2 2 2 Dermatomal Deficit: none none none none Gait and Functional Evaluation: Ambulatory aids: Independent Romberg's test: Intact bilaterally Toe heel walk / heel-toe walk intact while maintaining satisfactory balance? yes Squatting/straightening w/o assistance to a min of 60 degree knee flexion? yes Single leg stance: intact [place] pos, bi/L Hand and finger dexterity intact bilaterally? yes Disdiadochokinesis examination negative bilaterally? yes Results CT of the lumbar spine is reviewed. Pt has widespread spondylosis of the lumbar spine with lumbar degenerative scoliosis. There are vaccum discs from L3-L5 and L5-S1 appears partially autofused. He has evidence of previous laminectomy defect from L2-S1 howevere there is residual foraminal stenosis from L3-S1 b/l due to facet overgrowth, disc collapse and deformity. There are no fractures or dislocations noted. AP/LAT/FLEX/EXT views of the lumbar spine were obtained in office today and reviewed. These demonstrate severe Spondylotic changes within the lumbar spine with degenerative scoliosis, post surgical changes from L2-L5, facet arthropathy and sagittal as well as coronal imbalance. There is approximately 18 of robin nal deformity with a levoscoliosis. patient demonstrates 18 of lumbar lordosis with a pelvic incidence of approximate a 64. This shows a PI: LL mismatch of 45.there are large overflowing osteophytes of the anterior portion of the spinal column. There is severe facet arthrosis throughout the lumbar spine.AP of the pelvis demonstrates level pelvic brim congruent femoral acetabular joints with moderate to severe osteoarthritic changes no fractures or dislocations noted. There is increased sclerosis within the right SI joint compared to the left. - Labs Labs: H & H 09/26/20 Range/Units 10:25 Hgb 13.1 (13.0-17.5) gm/dL Hct 42.3 (39.0-53.0) % Coagulation 09/26/20 Range/Units 10:25 INR 0.9 (<1.2) Result Diagrams: 09/26/20 10:25 09/26/20 10:25 Assessment and Plan Assessment: 1. Degenerative lumbar scoliosis with sagittal and coronal imbalance 2. L3-4 and L4-5 severe spondylosis 3. Neurogenic claudication 4. 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 Complex medical patient Plan: Spine Surgery Risk Review [Mark Diaz] is a [80 yo active male] presenting for evaluation of [low back pain, neurogenic claudication, LE weakness, inability to ambulate]. It was my pleasure to have seen and examined [Mark Diaz]. In our visit today we have had a chance to go over subjective complaints, physical examination findings and treatments including the natural course history without intervention and various interventional options. The patients imaging demonstrates [PI:LL mismatch, severe degenerative lumbar scoliosis, spondylosis, stenosis s/p multiple surgereis]. On physical exam, [Mark Diaz] demonstrates [LE weakness, inability to ambulate more than 20 ft without pain and difficulty, positive sagittal balance]. I have explained to the patient that as their condition progresses it will cause further neurological deficits and eventual paralysis. Based on the patients imaging, physical exam, and the rapid progression and disabling nature of their symptoms, at this time I recommend surgery in the form or a: [lumbar decompr ession and fusion]. I discussed the risk and benefits of this procedure at length with [Justice Diaz]. The patient [and his agreed to considered pursuing the procedure abovementioned. Prior to surgery, she should follow up with her PCP (Cardio, ID, IM etc) for clearance. Questions were invited and an swered, and the patient wishes to proceed as outlined below. Currently, I am recommendin.One stage procedure. Thoracic 10 to pelvis posterior stabilized fusion with Lumbar 3 to Lumbar 5 interbody fusion with screws, cages, rods and bone graft. 2.Follow up with PCP for surgical clearance 3.Review of surgical risks and benefits as well as an educational packet on the proposed surgical procedure. Risks: All surgical procedures come with inherent risks, including those related to positioning, anesthesia, intraoperative findings, and postoperative complications. It is important to understand that surgery does not come with any guarantee of a successful outcome as complications and adverse events are always possible. The patient was given a handout in office today discussing the surgical procedure and risks associated with the intervention, both of which were discussed with the patient. These risks include but are not limited to the following: * Experiencing same, different or even worse symptoms in back, neck, arms, or legs compared to before surgery. Requiring further surgery or other forms of treatment presently or at some time in the future at same or other levels of the intended spine surgery. On an extreme but fortunately relatively rare basis severe complication such as blindness, stroke, heart attack, temporary and/or permanent nerve injury, paralysis, coma, or may occur, sometimes without known explanation. Surgical complications may include but are not limited to risk of infection, fluid accumulation in the surgical dissection site, including a seroma or hematoma, that requires additional surgery, wound drainage, bleeding, new numbness or weakness, vision changes/loss, spinal fluid leakage, non-healing and/or infected incision, headaches, difficulty or inability to swallow, hoarseness, hemopneumothorax, pneumothorax, impotence, retrograde ejaculation, vaginal dryness; injury to nerves, spinal cord, blood vessels, lymphatics or other vital organs (i.e., bowel injury, injury to the great vessels); h eterotopic bone formation; complications related to the hardware such as screws, rods, cages including misplaced hardware, device failure, instrumentation at the wrong spine level, hardware fracture/breakage, or hardware loosening; vertebral failure of the spinal column above or below the newly placed hardware; retained surgical instrumentations or devices and the need for further surgery. * Medical risks of the planned spine surgery include but are not limited to generalized Infections to the whole body or local areas outside of the surgical site (sepsis), heart attack, bleeding, anaphylaxis, meningitis, seizure, epilepsy, hearing loss, burn desir, laceration of the head or other areas of the body, bruising, hypersensitivity of the skin, bladder over distension; allergic reaction; shoulder injury related to positioning; fat, blood and air clots to other areas of the body like heart, lungs, brain; failure of internal organs such as lungs, kidneys, liver and excessive bleeding. If blood transfusions are necessary, note that transfusions may cause intolerance reactions such as anaphylaxis or other complex reactions. Despite best efforts, the results of spine surgery might not heal in terms of bone, soft tissues such as skin, fascia, ligaments, and joints. Additionally, in order to achieve best possible results, spine surgery may be carried out beyond the initially planned levels and involve decompression, fusion including insertion of hardware at levels other than the original intended area of surgical interest change some portions of the procedure in order to ensure the best possible outcomes. With spine surgery and spinal fusion, there are different off label uses of instrumentation (devices, implants and hardware) as well as biological substances (bone morphogenic proteins, demineralized bone matrix) as well as using extra bone from allograft sources (i.e. cadaver bone) or autograft (iliac crest bone, ribs, or the spine itself). The patient has been given information about these practices and their inherent risks and benefits. [facility] is an educational center that serves as a training facility for neurosurgical and orthopedic spine residents and fellows. Residents are physicians who are completing their surgical intensive training following medical school. They assist in the operating room with direct supervision of the attending surgeons. [place] are surgeons who have completed their training and eligible for board certification. They have opted for an elective year of more specialized training in their field. They assist in the operating room under the supervision of the attending surgeons. Physician assistants are [facility] trained surgical providers who function in the outpatient, inpatient, and operating room setting under the direct supervision of the attending surgeon. [facility] has multiple operating rooms with single and overlapping rooms running daily. They currently function under the required guidelines as produced by the [facility] Finance Committee with regards to the overlapping rooms and will continue to comply with changes to this policy as they occur. The requirements include and are complied with as follows: (1) the critical portions of the overlapping rooms will not occur at the same time, (2) the attending physician will be physically present during the critical portions of the procedure and immediately available during the entire case, and (3) a back-up attending is designated should the primary attending not be immediately available. The patient has had a chance to review all the listed information, has been given print outs detailing this information, and has had all his/her questions answered to their satisfaction. It was my pleasure to have seen and examined [Mark Diaz]. In our visit today we have had a chance to go over my understanding of our patient's current condition, the natural course history without intervention and various interventional options. Questions were invited and answered, and the patient wishes to proceed as outlined above. I have seen and examined the patient for 25 minutes and we have spent more than 50% of the time in repeat and detailed counseling about the patient's condition, its natural course history with out and as much as can be predicted with surgery and re-review of various surgical treatment options. In conclusion, [Mark Diaz] and [His ] requested we proceed with the above suggested surgery and are willing to accept risks and limitations of the suggested surgery as nature of the disease process and our best attempts at treatment for the condition. Thank you again for allowing us to be part of your patient's care. Please don't hesitate to contact me if you have any further questions. Time with Patient: Greater than 30
[2020-10-04] MEDS ORDERED: HYDROmorphone 0.5 MG/0.5 ML SYRINGE IVP PRN (15:48)
[2020-10-04] MEDS ORDERED: DEXAMETHASONE SOD PHOSPHATE 10 MG/ML 1 ML VIAL IV PRN (15:52)
[2020-10-04] MEDS ORDERED: CYCLOBENZAPRINE 10 MG TAB PO PRN (15:52)
[2020-10-04] MEDS ORDERED: ONDANSETRON 4 MG/2 ML VIAL IVP PRN (15:52)
--- NOTE | 2020-10-04 15:57 | XR ---
EXAM TYPE: LUMBAR SPINE X RAY SERIES COMPARISON: NONE HISTORY: Postsurgical TECHNIQUE: 2 views are submitted. FINDINGS: Intraoperative view of the lumbar spine demonstrates postsurgical changes. Resolution is limited by i ntraoperative technique IMPRESSION: 1. Intraoperative changes.
--- NOTE | 2020-10-04 15:59 | FL ---
EXAMINATION TYPE: FL guidance operating room DATE OF EXAM: 10/04/2020 HISTORY: Fluoroscopy time 4 minutes and 16 seconds of fluoroscopy provided. IMPRESSION: 1. Fluoroscopy time.
[2020-10-04] MEDS ORDERED: HYDROCORTISONE SUCCINATE 100 MG/2 ML VIAL IV ONE (16:01)
[2020-10-04 16:27] LABS: Glucose,Whole Blood 167 mg/dL (75-99)
[2020-10-04] MEDS: HYDROmorphone 0.5 MG/0.5 ML SYRINGE IVP PRN ×3 (16:32→20:44)
[2020-10-04] MEDS ORDERED: SODIUM CHLORIDE 0.9% 1,000 ML IV ONE (17:21)
[2020-10-04] MEDS: GABAPENTIN 300 MG CAP PO SCH ×2 (20:30→22:10)
[2020-10-04] MEDS: 0.9% NACL WITH KCL 20 MEQ/L 1,000 ML IV SCH (20:30)
[2020-10-04] MEDS: DOCUSATE 100 MG CAP PO SCH (20:49)
[2020-10-05] MEDS: 0.9% NACL WITH KCL 20 MEQ/L 1,000 ML IV SCH ×3 (02:50→16:48)
[2020-10-05 06:48] LABS: Glucose,Whole Blood 192 mg/dL (75-99)
[2020-10-05 07:13] LABS: Anisocytosis Slight; Basophils % (A) 0 %; Eosinophils # (A) 0.1 k/uL (0-0.7); Eosinophils % (A) 0 %; HGB 9.3 gm/dL (13.0-17.5); Lymphocytes # (A) 3.1 k/uL (1.0-4.8); Lymphocytes % (A) 21 %; MCH 28.1 pg (25.0-35.0); MCHC 32.1 g/dL (31.0-37.0); MCV 87.5 fL (80.0-100.0); Mean Platelet Volume 7.9; Monocytes # (A) 0.7 k/uL (0-1.0); Monocytes % (A) 4 %; Neutrophils # (A) 11.2 k/uL (1.3-7.7); Neutrophils % (A) 73 %; Platelet Count 205 k/uL (150-450); RBC 3.32 m/uL (4.30-5.90); RDW 16.7 % (11.5-15.5); WBC 15.3 k/uL (3.8-10.6)
[2020-10-05] MEDS: LACTATED RINGERS 1,000 ML IV SCH (07:23)
[2020-10-05] MEDS: oxyCODONE-APAP 10-325MG 1 EACH TAB PO PRN ×2 (07:45→13:33)
--- NOTE | 2020-10-05 08:18 | P.PN ---
Progress Note - Text Progress Note Date: 10/05/20 Subjective: Patient was seen and examined this morning. He is awake and alert and doing very well. We did efface time call with his Staci he was very happy to see her. He states his pain is under control at this time he has no pain down his legs and he feels that his back is more stable. He denies any fevers chills shortness of breath or chest pain. Denies any nausea vomiting. He denies any numbness or tingling. Objective: Vital signs are stable at this time. Patient is slightly hypertensive however doing well. Laboratories are reviewed and as stated in chart. Hemoglobin dropped to 9.6 however this is a minimal drop and he is asymptomatic. Lumbar spine exam: Dressing is clean dry and intact. Drain is in place and has good output. There is a partially 50 mL and at this morning. Serosanguineous No hematomas. Minimal tenderness to palpation. Patient has 5/5 strength in all major muscle groups the lower extremities bilaterally. 5/5 strength all major muscle groups of the upper extremity's bilaterally. Patient has a chronically weak right shoulder secondary to rotator cuff tear. Sensation is intact to light touch L2 to S1. Palpable dorsalis pedis was posterior tibial pulses Compartments soft and compressible Negative Lolita's bilaterally Negative Babinskis bilaterally No clonus Assessment: 80-year-old male postop day 1 L2 to pelvis fusion, L2-3, L3 4, L4 5 interbody fusion with decompression, doing well Plan: -Check postoperative CT today -Up ad etelvina., TLSO ordered. TLSO when up and about and walking no need for in bed or in chair -All meals out of bed -Aggressive ambulation protocol -Gooden when up and about -Pain control as needed -Okay to start heparin today for DVT prophylaxis -PT/OT evaluation and treatment -GI prophylaxis, docusate and MiraLAX -Medical evaluation, appreciate help with management -ELOS: 1-2 days. Dispo will be to home with home care likely.
--- NOTE | 2020-10-05 08:55 | P.OP ---
Date of Procedure: 10/04/20 Preoperative Diagnosis: 1. Degenerative lumbar scoliosis with sagittal and coronal imbalance 2. L2-3, L3-4 and L4-5 severe spondylosis 3. Neurogenic claudication 4. 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 Complex medical patient Postoperative Diagnosis: 1. Degenerative lumbar scoliosis with sagittal and coronal imbalance 2. L2-3, L3-4 and L4-5 severe spondylosis 3. Neurogenic claudication 4. 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 Complex medical patient Procedure(s) Performed: 1. L2 to Pelvis posterolateral stabilized fusion 2. L2-3, L3-4 and L4-5 Interdiscal osteotomy (3 column osteotomy) for deformity correction 3. L2-3, L3-4 and L4-5 interbody fusion 4. L2-S1 revision decompressive laminectomy Implants: Sina [place] screws 6.5 and 7.5 mm x 50, 55. Illiac bolts 9.5mm x 70 and 80 mm Prolift cages x 2 8-13 mm 12 deg lordotic 11 mm Peek Alutian Cage Anesthesia: GETA Surgeon: Golden Price (NESTOR Rodriguez was present for the entirety of the case, all major portions and was neecssary and instrumental to the case) Estimated Blood Loss (ml): 450 (Cell saver 100 cc back) IV fluids (ml): 3,800 Urine output (ml): 200 Pathology: none sent Condition: stable Disposition: PACU Indications for Procedure: This 80 year old male returns for a follow up on his low back pain and would like to discuss scheduling surgery. Patient notes right sided pain. He takes [place] as needed. Patient ambulates independently. He has done PT, injections, RF ablation, Nerve stimulator trial and nothing has helped his pain. He is frustrated due to this taking so much time and he says he has been dealing with this for over 2 years now. He has recently visited his Pulmonary, cardiology, and PCP doctors who have all cleared him to have a surgical procedure. He states he is done with the conservative measures, he is unable to perform his ADLs to his satisfaction and he wants to have surgery. He feels that he has done everything else possible and nothing has worked and while surgery is his last resort he feels that it will help him as nothing else has. His is in the room with him again today and she agrees as he is suffering and miserable at this time due to his back pain, leg pain, weakness in his LE, inability to ambulate more than 20 ft. The SI joint injections did NOT help him at all.He feels that he has tried all of the conservative measure possible and is tired of these things and getting the "run around" from people. He states he wants surgery and is ready for it as he will ever be. He understands that surgery is difficult and can be a long recovery and his is in the room and is supportive of him at this time. He denies any f/c/sob/cp at this time. Operative Findings: Diffuse scarring of the dural sac with dysmorphic and extremely hypertrophic facet joints with gross instability noted at L3-4 and L4-5 with L2-3 collapse, severe. No dural tearing, lesions or punctate lesions. IONM signals remained stable through the case. All screws tested above 20 mA Description of Procedure: The patient was seen and examined in the preoperative area. All preoperative protocols were followed. Informed consent was obtained risks and benefits of the procedure were discussed at length. Risks including bleeding infection damage to the surrounding tissue and risk of reoperation were discussed with the patient. Risk of anesthesia up to and including was a discussed with the patient. These are outlined in the risk review. They were willing to accept these risks and all of the risks of surgery. The patient was given a weight- based dose of antibiotics in the form of 2 g Ancef IVPB 1. The patient was seen and evaluated by the anesthesia team who deemed them fit for surgery. The site was marked, the patient was willing to proceed with the procedure. The patient was transferred to the operative suite by the Department of anesthesia. They were then drifted off to sleep by the department anesthesia GETA. The patient tolerated this well. Gooden catheter was placed by the nursing staff, atraumatically. Once confirmation of lines and ventilation the patient was transferred to a prone Andrea table very K carefully. All bony prominences including wrists, elbows, axilla, chest, hips, and thighs, and feet were padded very well. Special attention was paid to the genitalia and these were padded accordingly. SCDs were placed on bilateral lower extremities and were connected. Arms were well padded and placed on arm boards up and out in the 9090 position. Once in position, again we confirmed good ventilation capabilities and that lines were running appropriately. The patient's lumbothoracic spine was then exposed. 1010s were placed outlining the incision site. Standard alcohol was used to clean the incision site and allowed to dry. C-arm was used to biomark the patient and confirm level for incision which was marked with a skin marker. Operative briefing was performed with all teams and everyone in agreement to proceed. The patient was then prepped and draped in a normal sterile fashion. Timeout was then performed and all parties were in agreement with the procedure to be performed. Sharp incision was made in the previously marked skin, electrocautery dissection was then taken down to the lumbar sacral and thoracolumbar fascia which was identified and cleaned with a Richardson. Previous surgeries caused extensive scarring of this area and there were Ethibond stitches to ronnell the fascia in this area which were removed. Electrocautery dissection was then taken over the spinous processes in a subperiosteal fashion down and out to the facet joints from L1 to the pelvis. Care was taken in the midline of L2 down to S1 due to previous laminectomy. The scar tissue formation over the dural sac was removed. This allowed visualization of the bony edges of the previous laminectomies which were then followed out past the facets into the tissue TPs bilaterally. Once all transverse processes were visualized from L1 down to the pelvis the PSIS was exposed bilaterally for visualization of pelvic screw placement. Meticulous hemostasis was obtained using bipolar electrocautery as well as FloSeal. Once good visualization of been obtained under fluoroscopic guidance pedicle screws were placed from L2 to the pelvis. This was done in a sequential fashion by first using a bur for an opening hole followed by a pedicle finder and a feeler. A 55 tap was used to start screw threads. Screws then placed atraumatically in all these areas. Once screws were placed a 3-D Ziehm spin was obtained intraoperatively to check screw placement. All screws were in good position. Once this was accomplished screws were then tested with intraoperative neuro monitoring and all screws tested above 20 mA. We then proceeded to cementing of fenestrated screws which were placed at L2 and L3 bilaterally. The centering jig was placed in the screw heads and under live fluoroscopic imaging cement was placed into the L2 screws bilaterally followed by the L3 screws bilaterally. Careful attention was paid to any cement extravasation which did not happen. There is no change in vital signs intraoperative neuro monitoring during the cementing of screws. Once this had been accomplished a malleable template was used to template the rods which were then bent and set aside to be ready for insertion if needed. Decompression then ensued from L2 to S1. This was followed by right-sided interbody placements at L2-3, L3 4, L3 5. At L2-3 a 11 mm static peek cage was placed on the right-hand side for a transforaminal approach. An intradiscal osteotomy (3 column) was performed to allow for deformity correction as well as entrance into the disc space due to collapse. Sequential same shaving allowed for preparation of the endplates. Allograft and autograft placed anterior to the cage as well as within the cage and under fluoroscopic guidance the cage was impacted into place and confirmed to be in good position. This transforaminal approach was repeated at L34 and L4 5 levels. An intradiscal osteotomy (3 column) was performed to allow for deformity correction as well as entrance into the disc space due to collapse. Sequential shaving at these levels to prepare the endplates followed by bear claws to remove any excess cartilage and to obtain bleeding bone. Allograft and autograft were placed anterior to the cage. At the L3 4 and L4 5 levels and expandable prolific cage was placed. This was done under lateral fluoroscopic guidance for good cage placement. The cages then expanded under fluoroscopic guidance to ensure no violation of the endplates. Once in good position and good expansion have been obtained the case was back filled with more autograft and allograft. This all was done under live fluoroscopic imaging which ensured good cage. Placement, no endplate violation, no cage migration. Final AP confirmed good placement of the cages as well. The wound was then copiously irrigated with 2 L of normal sterile saline followed by Irricept followed by 1 L of normal sterile saline. With this having been accomplished, we now performed our final decortication of the transverse processes as well as lamina sacral Bee and SI joints bilaterally. Rods were then placed within the pelvic screws and secured into place and sequentially reduced into to the heads bilaterally. We performed a load reduction up to L2. The set caps were then final tightened with a torque wrench. 2 cross-links were placed and final tightened. Meticulous hemostasis was performed. A mixture of autograft and allograft was then placed in the posterior lateral gutters. A small round Vitaliy drain was placed on the right hand with the patient and this was placed deep. Surgicel was placed over the dura. There were no dural leaks. 2 g of vancomycin powder were then placed into the wound. The wound was then closed with #1 Vicryl in the lumbosacral fascia as well as 0 PDS in simple fashion followed by 2-0 Vicryl in the subcutaneous tissue followed by chad in the skin which was then covered with skin glue. This was dressed sterilely with an operative foam dressing. The drain was stitched in place with a 2-0 Vicryl. This was then covered with a drain sponge and Tegaderm. The patient was transferred back to his hospital bed atraumatically. Drain continued to hold suction and were in good position. Patient was then awakened and extubated by the department of anesthesia having tolerated the procedure very well with no complications. She was transferred to the postoperative care unit in stable condition.
[2020-10-05] MEDS: GABAPENTIN 300 MG CAP PO SCH ×3 (09:30→21:34)
[2020-10-05] MEDS: DOCUSATE 100 MG CAP PO SCH ×2 (09:30→21:34)
[2020-10-05] MEDS: polyethylene glycoL 3350 17 GM POWD.PACK PO SCH (09:30)
[2020-10-05] MEDS: LEVOTHYROXINE 25 MCG TAB PO SCH (09:49)
[2020-10-05] MEDS: carvediloL 6.25 MG TAB PO SCH ×2 (09:49→16:50)
--- NOTE | 2020-10-05 09:52 | CT ---
EXAMINATION TYPE: CT lumbar spine wo con DATE OF EXAM: 10/05/2020 8:20 AM COMPARISON: 08/10/2020 HISTORY: post op lumbar fusion CT DLP: 1799.6 mGycm Automated exposure control for dose reduction was used. Unenhanced CT of the lumbar spine was performed. Bone and soft tissue window settings are submitted as well as coronal and sagittal reconstructions. Subcutaneous air is present in a small amount of com patible with postsurgical state. I do not see evidence for definite collection to suggest abscess. St reak artifact does limit evaluation. Extensive decompressive laminectomy change with pedicular screws and intervertebral spacers in place. Postoperative alignment is stable relative to preoperative examination. IMPRESSION: Extensive postsurgical changes as discussed.
[2020-10-05 11:31] LABS: Glucose,Whole Blood 245 mg/dL (75-99)
[2020-10-05 11:46] LABS: African American GFR (CKD) 42.9 (60.0-200.0); Anion Gap 7.7 mmol/L (4.00-12.00); BUN/Creat Ratio 14.71 Ratio (12.00-20.00); Calcium 8.7 mg/dL (8.7-10.3); Carbon Dioxide 25.3 mmol/L (21.6-31.8); Potassium 4.9 mmol/L (3.5-5.5)
--- NOTE | 2020-10-05 11:50 | P.CONS ---
History of Present Illness - Reason for Consult Consult date: 10/05/20 Medical management Requesting physician: Golden Price - Chief Complaint Lumbar scoliosis - History of Present Illness This is an 80-year-old male patient presented to the hospital for an elective lumbar fusion for degenerative lumbar scoliosis with sagittal and coronal imbalance with Dr. Price. Patient is currently postop day 1. Patient has a past medical history of AICD, CVA, diabetes mellitus, GERD, hyperlipidemia, essential hypertension, rheumatoid arthritis, GERD, deafness. Today patient is currently sitting up in chair. Patient reports that his back pain is improved. Patient has been up. Dressing is clean dry and intact. White blood cell is abby vated but patient is maintained on daily prednisone along with seeming dexamethasone during procedure. Patient denies any acute complaints. Patient denies chest pain or shortness of breath. Patient denies nausea vomiting or diarrhea. Patient denies any urinary burning or frequency Review of Systems Please refer to HPI otherwise unremarkable Past Medical History Past Medical History: CVA/TIA, Diabetes Mellitus, GERD/Reflux, Hearing Disorder / Deafness, Hyperlipidemia, Hypertension, Musculoskeletal Disorder, Pneumonia, Rheumatoid Arthritis (RA), Thyroid Disorder Additional Past Medical History / Comment(s): Hx CMP w/ BiVICD. Interstitial lung disease/rheumatoid lung, gout, CVA in 2006- no residual effects, hiatal hernia; bronchitis, states "had [place] virus, possibly lymes disease". chronic back pain, History of Any Multi-Drug Resistant Organisms: None Reported Past Surgical History: AICD, Appendectomy, Back Surgery, Heart Catheterization, Joint Replacement, Tonsillectomy Additional Past Surgical History / Comment(s): Biventricular AICD placement/St [facility], battery change r/t recall, Back surgery 6, colonoscopy, past hx of pain clinic procedure, cataract sx, Oral sx "to smooth down bones in mouth." 01/18/20 RT TOTAL KNEE; 02/24/20 Repair Rt knee tendon. Past Anesthesia/Blood Transfusion Reactions: No Reported Reaction Additional Past Anesthesia/Blood Transfusion Reaction / Comm: blood transfusion- no reaction; BP was high when came in for his 1st pain procedure-procedure was canceled- states no problem since. Type of Cardiac Device: AICD Device Placement Date:: 2016 Smoking Status: Former smoker - Past Family History Father History Unknown: Yes Mother Family Medical History: Hyperlipidemia, Hypertension, Myocardial Infarction ([place]) Additional Family Medical History / Comment(s): . Medications and Allergies Home Medications Medication Instructions Recorded Confirmed Type Cholecalciferol [Vitamin D3 (25 2,000 unit PO DAILY 09/23/17 09/30/20 History Mcg = 1000 Iu)] Insulin Aspart [NovoLOG Flexpen] See Protocol SQ AC-TID PRN 11/24/18 09/30/20 History Omeprazole [PriLOSEC] 20 mg PO QAM 11/24/18 09/30/20 History Torsemide [Demadex] 10 mg PO QAM 11/24/18 09/30/20 History Pravastatin Sodium [Pravachol] 40 mg PO HS 02/27/19 09/30/20 History predniSONE 10 mg PO QAM 10/06/19 09/30/20 History allopurinoL [Zyloprim] 100 mg PO AC-SUPPER 10/09/19 09/30/20 History Carvedilol [Coreg] 6.25 mg PO BID 11/30/19 09/30/20 History Levothyroxine Sodium [Synthroid] 25 mcg PO QAM 12/11/19 09/30/20 History Insulin Detemir [Levemir Flextouch] 36 unit SQ HS 02/23/20 09/30/20 History Aspirin [Adult Low Dose Aspirin EC] 81 mg PO DAILY 03/23/20 09/30/20 History HYDROcodone/APAP 7.5-325MG [[place] 1 tab PO Q8HR PRN 30 Days #90 tab 08/22/20 09/30/20 Rx 7.5-325] Calcium Carbonate [Calcium] 600 mg PO BID 09/30/20 09/30/20 History Allergies Allergy/AdvReac Type Severity Reaction Status Date / Time amlodipine Allergy swelling Verified 10/04/20 06:18 of feet doxycycline Allergy Anaphylaxis Verified 10/04/20 06:18 Iodinated Contrast Media Allergy Anaphylaxis Verified 10/04/20 06:18 [Iodinated Contrast- Oral and IV Dye] iodine Allergy Anaphylaxis Verified 10/04/20 06:18 metronidazole [From Flagyl] Allergy Rash/Hives Verified 10/04/20 06:18 shrimp Allergy Rash/Hives Verified 10/04/20 06:18 acarbose AdvReac Abdominal Verified 10/04/20 06:18 Pain adhesive tape AdvReac SKIN PULLS Verified 10/04/20 06:18 OFF " amoxicillin trihydrate AdvReac Nausea & Verified 10/04/20 06:18 [From Augmentin] Vomiting potassium clavulanate AdvReac Nausea & Verified 10/04/20 06:18 [From Augmentin] Vomiting Physical Exam Vitals: Vital Signs Temp Pulse Resp BP Pulse Ox 10/05/20 07:12 98.9 F 91 17 166/67 96 10/05/20 02:29 98.4 F 87 166/77 93 L 10/05/20 00:02 16 10/04/20 19:59 97.6 F 79 172/64 93 L 10/04/20 19:44 77 176/67 10/04/20 19:29 80 170/66 10/04/20 19:14 85 168/63 10/04/20 18:59 77 176/66 94 L 10/04/20 18:44 82 167/71 92 L 10/04/20 18:29 77 165/70 92 L 10/04/20 18:14 76 166/66 93 L 10/04/20 17:59 77 165/69 92 L 10/04/20 17:15 80 16 155/55 93 L 10/04/20 17:00 79 16 152/67 97 10/04/20 16:45 75 16 164/72 95 10/04/20 16:30 71 16 170/75 94 L 10/04/20 16:15 71 16 158/73 96 10/04/20 16:00 72 16 157/69 96 10/04/20 15:42 97.3 F L 69 16 151/68 96 Intake and Output 10/04/20 10/05/20 10/05/20 22:59 06:59 14:59 Intake Total 200 Output Total 810 695 80 Balance -610 -695 -80 Intake: IV 200 Output: Drainage 100 70 80 Back 100 70 80 Urine 260 625 Estimated Blood Loss 450 Other: Voiding Method Indwelling Catheter Indwelling Catheter Weight 85.2 kg Head normocephalic Neck supple Lungs clear to auscultation bilaterally no wheezing or crackles Heart regular rate and rhythm S1-S2, no rub or gallop Abdomen is soft nontender nondistended positive bowel sounds no hepatosplenomegaly Extremities no edema Neuro alert and orientated to 3. Hard of hearing Back dressing is clean dry and intact small amount of shadowing noted to lower dressing Results CBC & Chem 7: 10/05/20 06:44 10/04/20 13:25 Labs: Abnormal Lab Results - Last 24 Hours (Table) 10/04/20 10/04/20 10/04/20 Range/Units 13:25 13:25 13:29 WBC 18.1 H (3.8-10.6) k/uL RBC 3.36 L (4.30-5.90) m/uL Hgb 9.6 L (13.0-17.5) gm/dL Hct 28.9 L (39.0-53.0) % RDW 16.7 H (11.5-15.5) % Neutrophils # (1.3-7.7) k/uL ABG pH (7.35-7.45) ABG pO2 (83-108) mmHg ABG O2 Saturation (94-97) % Sodium 134 L (137-145) mmol/L Potassium 5.6 H (3.5-5.1) mmol/L BUN 26 H (9-20) mg/dL Creatinine 1.80 H (0.66-1.25) mg/dL Glucose 188 H (74-99) mg/dL POC Glucose (mg/dL) 188 H (75-99) mg/dL Calcium 8.1 L (8.4-10.2) mg/dL 10/04/20 10/04/20 10/05/20 Range/Units 14:43 16:25 06:44 WBC 15.3 H (3.8-10.6) k/uL RBC 3.32 L (4.30-5.90) m/uL Hgb 9.3 L (13.0-17.5) gm/dL Hct 29.0 L (39.0-53.0) % RDW 16.7 H (11.5-15.5) % Neutrophils # 11.2 H (1.3-7.7) k/uL ABG pH 7.34 L (7.35-7.45) ABG pO2 249 H (83-108) mmHg ABG O2 Saturation 99.6 H (94-97) % Sodium (137-145) mmol/L Potassium (3.5-5.1) mmol/L BUN (9-20) mg/dL Creatinine (0.66-1.25) mg/dL Glucose (74-99) mg/dL POC Glucose (mg/dL) 167 H (75-99) mg/dL Calcium (8.4-10.2) mg/dL 10/05/20 10/05/20 Range/Units 06:46 11:29 WBC (3.8-10.6) k/uL RBC (4.30-5.90) m/uL Hgb (13.0-17.5) gm/dL Hct (39.0-53.0) % RDW (11.5-15.5) % Neutrophils # (1.3-7.7) k/uL ABG pH (7.35-7.45) ABG pO2 (83-108) mmHg ABG O2 Saturation (94-97) % Sodium (137-145) mmol/L Potassium (3.5-5.1) mmol/L BUN (9-20) mg/dL Creatinine (0.66-1.25) mg/dL Glucose (74-99) mg/dL POC Glucose (mg/dL) 192 H 245 H (75-99) mg/dL Calcium (8.4-10.2) mg/dL Assessment and Plan Assessment: 1. Status post lumbar fusion with decompression. Patient is currently postop day 1. 2. Diabetes mellitus type 2. Sliding scale and home insulin ordered 3. History of CVA in 2005 4. Hyperlipidemia. Maintained on statin 5. History of biventricular AICD placement 6. Essential hypertension 7. Rheumatoid arthritis 8. Hypothyroidism. Maintained on Synthroid 9. Hyperlipidemia. Maintained on statin 10. History of GERD 11. Elevated WBC this is likely secondary to steroids. Patient received dexamethasone during procedure and is maintained on daily prednisone. Denies any acute complaints 12. Chronic kidney disease. Creatinine 1.80 bun is 26 this does appear around patient's baseline Thank you for this consultation we'll continue to follow patient closely throughout stay Per patient upon discharge patient is planning to return home Time with Patient: Greater than 30 (Greater than 60% of the total time spent in counseling and coordination of care)
--- NOTE | 2020-10-05 13:11 | CDI ---
Documentation Clarification Form Date: 10/05/2020 01:01:23 PM From: Caren Alvarez CCS, CCDS Admit Date: 10/04/2020 05:45:00 AM Patient Name: Mark Diaz Visit Number: [id number] Discharge Date: ATTENTION: The Clinical Documentation Specialists (CDI) and [facility] Coding Staff appreciate your assistance in clarifying documentation. Please respond to the clarification below the line at the bottom and electronically sign. The CDI & [facility] Coding staff will review the response and follow-up if needed. Please note: Queries are made part of the Legal Health Record. If you have any questions, please contact the author of this message via ITS. Dr. Kenyon Chaudhary: CKD is documented in the 10/05 Medical Management Consult without further specificity: "Chronic kidney disease. Creatinine 1.80, BUN is 26, this does appear around patient's baseline." History/Risk Factors: CKD nos, IDDM II, Hypertension, Hypothyroidism, Hyperlipidemia. Clinical Indicators: Patient is admitted on 10/04 for elective Lumbar Fusion due to severe Lumbar stenosis, scoliosis & neurogenic claudication. Per Medical Management Consult, patient's baseline Cr & BUN is 1.80 & 26. Current Creatinine on 10/04: 1.80^, BUN 26^, GFR 35 10/05 Creatinine: 1.7^, BUN (25.0), GFR 27.0*. Historical GFR on 09/25/2017: 45 Treatment Postop Spinal Surgery: IV Zofran, IV Dilaudid, IV Cefazolin, IV SoluCortef, IV Kcl, O2 2 - 8Lnc on 10/04. 2Lnc - RA on 10/05. Nephrology is not consulted. In order to capture the severity of condition, please clarify the stage of the CKD, if known: CKD Stage 3 (GFR 30-59) o Stage 3a o Stage 3b o Other, unspecified CKD Stage 4 (GFR 15-29) Other, please specify Unable to determine (Last Revision: December 2019) chronic kidney stage 3 MTDD
[2020-10-05] MEDS: INSULIN ASPART (NovoLOG) 100 UNIT/ML VIAL SQ SCH ×3 (13:22→21:34)
[2020-10-05 16:38] LABS: Glucose,Whole Blood 200 mg/dL (75-99)
[2020-10-05] MEDS: CALCIUM CARBONATE 500 MG CHEWABLE PO SCH (16:48)
[2020-10-05] MEDS: allopurinoL 100 MG TAB PO SCH (16:48)
[2020-10-05 20:24] LABS: Glucose,Whole Blood 185 mg/dL (75-99)
[2020-10-05] MEDS: INSULIN DETEMIR (LEVEMIR) 100 UNIT/ML SYR SQ SCH (21:34)
[2020-10-05] MEDS: PRAVASTATIN SODIUM 40 MG TAB PO SCH (21:34)
[2020-10-06] MEDS: LEVOTHYROXINE 25 MCG TAB PO SCH (05:53)
[2020-10-06 06:45] LABS: Anisocytosis Slight; Basophils # (A) 0.1 k/uL (0-0.2); Basophils % (A) 0 %; Eosinophils # (A) 0.3 k/uL (0-0.7); Eosinophils % (A) 2 %; HCT 28.2 % (39.0-53.0); HGB 8.8 gm/dL (13.0-17.5); Hypochromasia Slight; Lymphocytes # (A) 4.3 k/uL (1.0-4.8); Lymphocytes % (A) 28 %; MCH 27.6 pg (25.0-35.0); MCHC 31.3 g/dL (31.0-37.0); MCV 88.2 fL (80.0-100.0); Mean Platelet Volume 7.7; Monocytes % (A) 6 %; Neutrophils # (A) 9.4 k/uL (1.3-7.7); Neutrophils % (A) 61 %; Platelet Count 217 k/uL (150-450); RBC 3.19 m/uL (4.30-5.90); RDW 17.1 % (11.5-15.5); WBC 15.5 k/uL (3.8-10.6)
[2020-10-06 06:59] LABS: Glucose,Whole Blood 125 mg/dL (75-99)
[2020-10-06] MEDS: INSULIN ASPART (NovoLOG) 100 UNIT/ML VIAL SQ SCH ×4 (07:13→21:40)
[2020-10-06] MEDS: polyethylene glycoL 3350 17 GM POWD.PACK PO SCH (07:19)
[2020-10-06] MEDS: carvediloL 6.25 MG TAB PO SCH ×2 (07:19→17:42)
[2020-10-06] MEDS: predniSONE 10 MG TAB PO SCH (07:19)
[2020-10-06] MEDS: GABAPENTIN 300 MG CAP PO SCH (07:19)
[2020-10-06] MEDS: CALCIUM CARBONATE 500 MG CHEWABLE PO SCH ×2 (07:19→17:38)
[2020-10-06] MEDS: 0.9% NACL WITH KCL 20 MEQ/L 1,000 ML IV SCH ×2 (07:19→17:43)
[2020-10-06] MEDS: TORSEMIDE 20 MG TAB PO SCH (07:19)
[2020-10-06] MEDS: PANTOPRAZOLE 40 MG TABLET PO SCH (07:19)
[2020-10-06] MEDS: CHOLECALCIFEROL 1,000 UNIT TAB PO SCH (07:19)
[2020-10-06] MEDS: DOCUSATE 100 MG CAP PO SCH ×2 (07:19→21:56)
[2020-10-06] MEDS ORDERED: HYDROmorphone 0.5 MG/0.5 ML SYRINGE IVP PRN (10:03)
--- NOTE | 2020-10-06 10:07 | P.PN ---
Progress Note - Text Progress Note Date: 10/06/20 Subjective: Patient was seen and examined this morning. He is slightly more confused this morning. He did receive a dose of Dilaudid at 3 AM. We did face time call with his Staci he was very happy to see her. He denies any pain at this time he has no pain down his legs and he feels that his back is more stable. He denies any fevers chills shortness of breath or chest pain. Denies any nausea vomiting. He denies any numbness or tingling. Medicine notes reviewed appreciate consult management Objective: Vital signs are stable at this time. Patient is slightly hypertensive however doing well. He is a little bit more sedated and confused this morning with this is likely due to medication sensitivity. Laboratories are reviewed and as stated in chart. Labs are stable at this time Lumbar spine exam: Dressing is clean dry and intact. Drain is in place and has good output. There is a partially 50 mL and at this morning. Serosanguineous. No hematomas. Minimal tenderness to palpation. Patient has 5/5 strength in all major muscle groups the lower extremities bilaterally. 5/5 strength all major muscle groups of the upper extremity's bilaterally. Patient has a chronically weak right shoulder secondary to rotator cuff tear. Sensation is intact to light touch L2 to S1. Palpable dorsalis pedis was posterior tibial pulses Compartments soft and compressible Negative Lolita's bilaterally Negative Babinskis bilaterally No clonus Assessment: 80-year-old male postop day 2 L2 to pelvis fusion, L2-3, L3 4, L4 5 interbody fusion with decompression, doing well, confusion likely due to medication and kendra to opoids. Plan: -Postoperative CT reviewed. All hardware in good position. Cages in good position. Reduction of coronal and sagittal planes noted. -Up ad etelvina., TLSO ordered. TLSO when up and about and walking no need for in bed or in chair -All meals out of bed -Aggressive ambulation protocol -Gooden out today. Trial voids. PVR measurements. -Pain control as needed. Decreased dosages and change to regiment of scheduled Tylenol 1000 mg every 6 hours. OxyIR 5 mg every 6 hours when necessary pain. No IV narcotics. -heparin today for DVT prophylaxis -PT/OT evaluation and treatment -GI prophylaxis, docusate and MiraLAX -Medical management -ELOS: 1-2 days. Dispo will be to home with home care likely.
[2020-10-06 11:30] LABS: Glucose,Whole Blood 162 mg/dL (75-99)
[2020-10-06] MEDS: ACETAMINOPHEN TAB 500 MG TAB PO SCH ×2 (12:40→17:43)
[2020-10-06 16:57] LABS: Glucose,Whole Blood 176 mg/dL (75-99)
[2020-10-06] MEDS: allopurinoL 100 MG TAB PO SCH (17:42)
--- NOTE | 2020-10-06 18:29 | P.PN ---
Subjective Progress Note Date: 10/06/20 This is an 80-year-old male patient presented to the hospital for an elective lumbar fusion for degenerative lumbar scoliosis with sagittal and coronal imbalance with Dr. Price. Patient is currently postop day 1. Patient has a past medical history of AICD, CVA, diabetes mellitus, GERD, hyperlipidemia, essential hypertension, rheumatoid arthritis, GERD, deafness. Today patient is currently sitting up in chair. Patient reports that his back pain is improved. Patient has been up. Dressing is clean dry and intact. White blood cell is elevated but patient is maintained on daily prednisone along with seeming dexamethasone during procedure. Patient denies any acute complaints. Patient denies chest pain or shortness of breath. Patient denies nausea vomiting or diarrhea. Patient denies any urinary burning or frequency On 10/06/2020 patient was seen and examined on the medical floor he is alert and oriented 3 he is complaining of severe weakness otherwise he denies any complaints there is no fever or chills no headache or dizziness no chest pain no shortness of breath no cough no nausea or vomiting no abdominal pain no diarrhea and no urinary symptoms Objective - Vital Signs Vital signs: Vital Signs Temp 98.9 F 10/06/20 07:00 Pulse 59 L 10/06/20 07:00 Resp 18 10/06/20 00:00 BP 165/67 10/06/20 07:00 Pulse Ox 92 L 10/06/20 07:00 Intake & Output 10/05/20 10/06/20 10/06/20 18:59 06:59 18:59 Intake Total 1300 Output Total 120 690 100 Balance -120 610 -100 Intake: Intake, IV Titration 1300 Amount 0.9% NaCl with KCl 20 Meq 1200 /l 1,000 ml @ 100 mls/hr IV .Q10H PATTI Rx#: [id number] ceFAZolin 2 gm In Sodium 100 Chloride 0.9% 50 ml @ 100 mls/hr IVPB Q8HR PATTI Rx# :[id number] Output: Drainage 120 90 100 Back 120 90 100 Urine 600 Other: Voiding Method Indwelling Catheter Indwelling Catheter - Exam Head normocephalic Neck supple Lungs clear to auscultation bilaterally no wheezing or crackles Heart regular rate and rhythm S1-S2, no rub or gallop Abdomen is soft nontender nondistended positive bowel sounds no hepatosplenomegaly Extremities no edema Neuro alert and orientated to 3. Hard of hearing Back dressing is clean dry and intact small amount of shadowing noted to lower dressing - Labs CBC & Chem 7: 10/06/20 06:07 10/05/20 06:44 Labs: Abnormal Lab Results - Last 24 Hours (Table) 10/05/20 10/05/20 10/06/20 Range/Units 16:35 20:23 06:07 WBC 15.5 H (3.8-10.6) k/uL RBC 3.19 L (4.30-5.90) m/uL Hgb 8.8 L (13.0-17.5) gm/dL Hct 28.2 L (39.0-53.0) % RDW 17.1 H (11.5-15.5) % Neutrophils # 9.4 H (1.3-7.7) k/uL POC Glucose (mg/dL) 200 H 185 H (75-99) mg/dL 10/06/20 10/06/20 Range/Units 06:57 11:28 WBC (3.8-10.6) k/uL RBC (4.30-5.90) m/uL Hgb (13.0-17.5) gm/dL Hct (39.0-53.0) % RDW (11.5-15.5) % Neutrophils # (1.3-7.7) k/uL POC Glucose (mg/dL) 125 H 162 H (75-99) mg/dL Assessment and Plan Assessment: 1. Status post lumbar fusion with decompression. Patient is currently postop day 1. 2. Diabetes mellitus type 2. Sliding scale and home insulin ordered 3. History of CVA in 2005 4. Hyperlipidemia. Maintained on statin 5. History of biventricular AICD placement 6. Essential hypertension 7. Rheumatoid arthritis 8. Hypothyroidism. Maintained on Synthroid 9. Hyperlipidemia. Maintained on statin 10. History of GERD 11. Elevated WBC this is likely secondary to steroids. Patient received dexamethasone during procedure and is maintained on daily prednisone. Denies a ny acute complaints 12. Chronic kidney disease. Creatinine 1.80 bun is 26 this does appear around patient's baseline Thank you for this consultation we'll continue to follow patient closely throu ghout stay Per patient upon discharge patient is planning to return home
[2020-10-06 20:50] LABS: Glucose,Whole Blood 143 mg/dL (75-99)
[2020-10-06] MEDS: INSULIN DETEMIR (LEVEMIR) 100 UNIT/ML SYR SQ SCH (21:55)
[2020-10-06] MEDS: PRAVASTATIN SODIUM 40 MG TAB PO SCH (21:56)
[2020-10-07] MEDS: ACETAMINOPHEN TAB 500 MG TAB PO SCH ×5 (00:02→23:31)
[2020-10-07] MEDS: 0.9% NACL WITH KCL 20 MEQ/L 1,000 ML IV SCH ×3 (00:03→23:35)
[2020-10-07] MEDS: LEVOTHYROXINE 25 MCG TAB PO SCH (05:55)
[2020-10-07 07:19] LABS: Glucose,Whole Blood 68 mg/dL (75-99)
[2020-10-07 07:35] LABS: Glucose,Whole Blood 69 mg/dL (75-99)
[2020-10-07 07:51] LABS: Glucose,Whole Blood 74 mg/dL (75-99)
[2020-10-07 08:09] LABS: Anisocytosis Slight; Basophils % (A) 0 %; Eosinophils # (A) 0.4 k/uL (0-0.7); Eosinophils % (A) 3 %; HCT 25.7 % (39.0-53.0); HGB 8.2 gm/dL (13.0-17.5); Hypochromasia Slight; Lymphocytes # (A) 3.4 k/uL (1.0-4.8); Lymphocytes % (A) 27 %; MCH 28.1 pg (25.0-35.0); MCHC 31.8 g/dL (31.0-37.0); MCV 88.4 fL (80.0-100.0); Monocytes # (A) 0.6 k/uL (0-1.0); Monocytes % (A) 5 %; Neutrophils # (A) 7.9 k/uL (1.3-7.7); Neutrophils % (A) 62 %; Platelet Count 197 k/uL (150-450); RBC 2.91 m/uL (4.30-5.90); RDW 16.8 % (11.5-15.5); WBC 12.6 k/uL (3.8-10.6)
--- NOTE | 2020-10-07 09:12 | P.PN ---
Progress Note - Text Progress Note Date: 10/07/20 Subjective: Patient was seen and examined this morning. He is doing much better this morning much more coherent been up to the bathroom and had a bowel movement. He denies any pain at this time he has no pain down his legs and he feels that his back is more stable. He denies any fevers chills shortness of breath or chest pain. Denies any nausea vomiting. He denies any numbness or tingling. Medicine notes reviewed appreciate consult management Objective: Vital signs are stable at this time. Patient is slightly hypertensive however doing well. He is a little bit more sedated and confused this morning with this is likely due to medication sensitivity. Laboratories are reviewed and as stated in chart. Labs are stable at this time Lumbar spine exam: Dressing is clean dry and intact. Drain is in place and has good output. There is a partially 50 mL and at this morning. Serosanguineous. No hematomas. Minimal tenderness to palpation. Patient has 5/5 strength in all major muscle groups the lower extremities bilaterally. 5/5 strength all major muscle groups of the upper extremity's bilaterally. Patient has a chronically weak right shoulder secondary to rotator cuff tear. Sensation is intact to light touch L2 to S1. Palpable dorsalis pedis was posterior tibial pulses Compartments soft and compressible Negative Lolita's bilaterally Negative Babinskis bilaterally No clonus Assessment: 80-year-old male postop day 2 L2 to pelvis fusion, L2-3, L3 4, L4 5 interbody fusion with decompression, doing well, confusion likely due to medication and kendra to opoids. Plan: -Up ad etelvina., TLSO ordered. TLSO when up and about and walking no need for in bed or in chair -All meals out of bed -Aggressive ambulation protocol -Pain control as needed. Decreased dosages and change to regiment of scheduled Tylenol 1000 mg every 6 hours. OxyIR 5 mg every 6 hours when necessary pain. No IV narcotics. -heparin today for DVT prophylaxis -PT/OT evaluation and treatment -GI prophylaxis, docusate and MiraLAX -Medical management -ELOS: 1-2 days. Discussed dispose with case management as well as PT and OT for recommendations. Patient's is at home however she is elderly and it depends on how much care he would need at home care can come out making get by with a several be great but I feel like he may need a few days in rehab before he goes home to get strong. The patient and his are amenable to this.
[2020-10-07] MEDS: DOCUSATE 100 MG CAP PO SCH ×2 (09:29→21:47)
[2020-10-07] MEDS: predniSONE 10 MG TAB PO SCH (09:29)
[2020-10-07] MEDS: TORSEMIDE 20 MG TAB PO SCH (09:30)
[2020-10-07] MEDS: PANTOPRAZOLE 40 MG TABLET PO SCH (09:30)
[2020-10-07] MEDS: carvediloL 6.25 MG TAB PO SCH ×2 (09:30→17:30)
[2020-10-07] MEDS: CHOLECALCIFEROL 1,000 UNIT TAB PO SCH (09:30)
[2020-10-07] MEDS: INSULIN ASPART (NovoLOG) 100 UNIT/ML VIAL SQ SCH ×4 (09:31→21:47)
[2020-10-07] MEDS: CALCIUM CARBONATE 500 MG CHEWABLE PO SCH ×2 (09:31→17:30)
[2020-10-07] MEDS: polyethylene glycoL 3350 17 GM POWD.PACK PO SCH (09:31)
[2020-10-07 11:04] LABS: Albumin 2.8 g/dL (3.80-4.90); Albumin/Globulin Ratio 1.75 (1.60-3.17); Anion Gap 7.2 mmol/L (4.00-12.00); BUN/Creat Ratio 16.67 Ratio (12.00-20.00); Calcium 8.3 mg/dL (8.7-10.3); Carbon Dioxide 25.8 mmol/L (21.6-31.8); Globulin 1.6 g/dL (1.6-3.3); Non-African American GFR(CKD) 34.5 (60.0-200.0); Potassium 4.8 mmol/L (3.5-5.5); Total Bilirubin 0.5 mg/dL (0.3-1.2); Total Protein 4.4 g/dL (6.2-8.2)
--- NOTE | 2020-10-07 11:15 | CDI ---
Documentation Clarification Form Date: 10/07/2020 11:03:25 AM From: Caren Alvarez CCS, CCDS Admit Date: 10/04/2020 05:45:00 AM Patient Name: Mark Diaz Visit Number: [id number] Discharge Date: ATTENTION: The Clinical Documentation Specialists (CDI) and [facility] Coding Staff appreciate your assistance in clarifying documentation. Please respond to the clarification below the line at the bottom and electronically sign. The CDI & [facility] Coding staff will review the response and follow-up if needed. Please note: Queries are made part of the Legal Health Record. If you have any questions, please contact the author of this message via ITS. Dr. Kenyon Chaudhary: Please render your opinion on the clinical significance of the patients hemoglobin/hematocrit levels. History/Risk Factors: Lumbar Scoliosis, CVA, AICD, DM, GERD, Hyperlipidemia, Hypertension, CKD nos, RA. 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 Procedure: L2 - Pelvis Posterolateral stabilized fusion. L2-3, L3-4 & L4-5 Interdiscal osteotomy (3 col) for deformity correction. L2-3, L3-4 & L4-5 interbody fusion. L2-S1 revision Decompressive laminectomy. Hgb 09/26: 13.1; 10/04: 10.3 - 9.6*; 10/05: 9.3*; 10/06: 8.8*; 10/07: 8.2* Hct: 09/26: 42.3; 10/04: 30.9* - 28.9*; 10/05: 29.0*; 10/06: 28.2*; 10/07: 25.7* Treatment 10/04: IV Dilaudid, IV Cefazolin, IV SoluCortef, IV Kcl. po Prednisone restarted 10/06. In order to capture the severity of condition, please clarify if the labs/clinical indicators signify: Acute blood loss anemia Was this an expected or unexpected post procedural condition, please specify: - Drug induced anemia Anemia of chronic kidney disease Unable to determine Other, please specify (Last Form Revision: January 2020) expected acute blood loss anemia MTDD
[2020-10-07 11:49] LABS: Glucose,Whole Blood 135 mg/dL (75-99)
--- NOTE | 2020-10-07 11:54 | P.PN ---
Subjective Progress Note Date: 10/07/20 This is an 80-year-old male patient presented to the hospital for an elective lumbar fusion for degenerative lumbar scoliosis with sagittal and coronal imbalance with Dr. Price. Patient is currently postop day 1. Patient has a past medical history of AICD, CVA, diabetes mellitus, GERD, hyperlipidemia, essential hypertension, rheumatoid arthritis, GERD, deafness. Today patient is currently sitting up in chair. Patient reports that his back pain is improved. Patient has been up. Dressing is clean dry and intact. White blood cell is elevated but patient is maintained on daily prednisone along with seeming dexamethasone during procedure. Patient denies any acute complaints. Patient denies chest pain or shortness of breath. Patient denies nausea vomiting or diarrhea. Patient denies any urinary burning or frequency On 10/06/2020 patient was seen and examined on the medical floor he is alert and oriented 3 he is complaining of severe weakness otherwise he denies any complaints there is no fever or chills no headache or dizziness no chest pain no shortness of breath no cough no nausea or vomiting no abdominal pain no diarrhea and no urinary symptoms On 10/07/2020 patient is alert and oriented 3. Patient has been working with physical therapy but it appears that they are recommending rehab. Discussed with patient and rehab was encouraged. Patient denies chest pain. Patient denies shortness breath. Patient denies nausea vomiting or diarrhea. Patient denies any urinary burning or frequency Objective - Vital Signs Vital signs: Vital Signs Temp 97.9 F 10/07/20 07:00 Pulse 63 10/07/20 07:00 Resp 16 10/07/20 07:00 BP 156/58 10/07/20 07:00 Pulse Ox 90 L 10/07/20 07:00 Intake & Output 10/06/20 10/07/20 10/07/20 18:59 06:59 18:59 Intake Total 200 650 Output Total 960 700 30 Balance -760 -50 -30 Intake: Intake, IV Titration 500 Amount 0.9% NaCl with KCl 20 Meq 500 /l 1,000 ml @ 100 mls/hr IV .Q10H PATTI Rx#: [id number] Oral 200 150 Output: Drainage 160 30 Back 160 30 Urine 800 700 Other: Voiding Method Indwelling Catheter # Voids 0 - Exam Head normocephalic Neck supple Lungs clear to auscultation bilaterally no wheezing or crackles Heart regular rate and rhythm S1-S2, no rub or gallop Abdomen is soft nontender nondistended positive bowel sounds no hepatosplenomegaly Extremities no edema Neuro alert and orientated to 3. Hard of hearing Back dressing is clean dry and intact small amount of shadowing noted to lower dressing - Labs CBC & Chem 7: 10/07/20 06:36 10/07/20 06:36 Labs: Abnormal Lab Results - Last 24 Hours (Table) 10/06/20 10/06/20 10/07/20 Range/Units 16:55 20:47 06:36 WBC 12.6 H (3.8-10.6) k/uL RBC 2.91 L (4.30-5.90) m/uL Hgb 8.2 L (13.0-17.5) gm/dL Hct 25.7 L (39.0-53.0) % RDW 16.8 H (11.5-15.5) % Neutrophils # 7.9 H (1.3-7.7) k/uL Chloride (96-109) mmol/L BUN (9.0-27.0) mg/dL Creatinine (0.6-1.5) mg/dL Est GFR (CKD-EPI)AfAm (60.0-200.0) Est GFR (CKD-EPI)NonAf (60.0-200.0) Glucose (70-110) mg/dL POC Glucose (mg/dL) 176 H 143 H (75-99) mg/dL Calcium (8.7-10.3) mg/dL ALT (10-49) U/L Total Protein (6.2-8.2) g/dL Albumin (3.80-4.90) g/dL 10/07/20 10/07/20 10/07/20 Range/Units 06:36 07:17 07:33 WBC (3.8-10.6) k/uL RBC (4.30-5.90) m/uL Hgb (13.0-17.5) gm/dL Hct (39.0-53.0) % RDW (11.5-15.5) % Neutrophils # (1.3-7.7) k/uL Chloride 111 H (96-109) mmol/L BUN 30.0 H (9.0-27.0) mg/dL Creatinine 1.8 H (0.6-1.5) mg/dL Est GFR (CKD-EPI)AfAm 40.0 L (60.0-200.0) Est GFR (CKD-EPI)NonAf 34.5 L (60.0-200.0) Glucose 65 L (70-110) mg/dL POC Glucose (mg/dL) 68 L 69 L (75-99) mg/dL Calcium 8.3 L (8.7-10.3) mg/dL ALT 9 L (10-49) U/L Total Protein 4.4 L (6.2-8.2) g/dL Albumin 2.80 L (3.80-4.90) g/dL 10/07/20 10/07/20 Range/Units 07:49 11:46 WBC (3.8-10.6) k/uL RBC (4.30-5.90) m/uL Hgb (13.0-17.5) gm/dL Hct (39.0-53.0) % RDW (11.5-15.5) % Neutrophils # (1.3-7.7) k/uL Chloride (96-109) mmol/L BUN (9.0-27.0) mg/dL Creatinine (0.6-1.5) mg/dL Est GFR (CKD-EPI)AfAm (60.0-200.0) Est GFR (CKD-EPI)NonAf (60.0-200.0) Glucose (70-110) mg/dL POC Glucose (mg/dL) 74 L 135 H (75-99) mg/dL Calcium (8.7-10.3) mg/dL ALT (10-49) U/L Total Protein (6.2-8.2) g/dL Albumin (3.80-4.90) g/dL Assessment and Plan Assessment: 1. Status post lumbar fusion with decompression. Patient is currently postop day 3. 2. Diabetes mellitus type 2. Sliding scale and home insulin ordered 3. History of CVA in 2005 4. Hyperlipidemia. Maintained on statin 5. History of biventricular AICD placement 6. Essential hypertension 7. Rheumatoid arthritis 8. Hypothyroidism. Maintained on Synthroid 9. Hyperlipidemia. Maintained on statin 10. History of GERD 11. Elevated WBC this is likely secondary to steroids. Patient received dexamethasone during procedure and is maintained on daily prednisone. Denies any acute complaints 12. Chronic kidney disease. Creatinine 1.80 bun is 26 this does appear around patient's baseline Thank you for this consultation we'll continue to follow patient closely throughout stay Patient will likely need rehab upon discharge to discuss case management
[2020-10-07 11:57] LABS: Anisocytosis Slight; Basophils % (A) 0 %; Eosinophils # (A) 0.4 k/uL (0-0.7); Eosinophils % (A) 3 %; HCT 25.9 % (39.0-53.0); HGB 8.4 gm/dL (13.0-17.5); Hypochromasia Slight; Lymphocytes # (A) 3.1 k/uL (1.0-4.8); Lymphocytes % (A) 25 %; MCH 28.6 pg (25.0-35.0); MCHC 32.2 g/dL (31.0-37.0); MCV 88.6 fL (80.0-100.0); Mean Platelet Volume 7.8; Monocytes # (A) 0.5 k/uL (0-1.0); Monocytes % (A) 4 %; Neutrophils # (A) 7.9 k/uL (1.3-7.7); Neutrophils % (A) 65 %; Platelet Count 214 k/uL (150-450); RBC 2.92 m/uL (4.30-5.90); WBC 12.2 k/uL (3.8-10.6)
[2020-10-07 17:23] LABS: Glucose,Whole Blood 142 mg/dL (75-99)
[2020-10-07] MEDS: allopurinoL 100 MG TAB PO SCH (17:30)
[2020-10-07 21:25] LABS: Glucose,Whole Blood 169 mg/dL (75-99)
[2020-10-07] MEDS: PRAVASTATIN SODIUM 40 MG TAB PO SCH (21:47)
[2020-10-07] MEDS: INSULIN DETEMIR (LEVEMIR) 100 UNIT/ML SYR SQ SCH (21:47)
[2020-10-08] MEDS: ACETAMINOPHEN TAB 500 MG TAB PO SCH (06:15)
[2020-10-08] MEDS: LEVOTHYROXINE 25 MCG TAB PO SCH (06:15)
[2020-10-08 06:53] LABS: Anisocytosis Slight; Basophils % (A) 0 %; Eosinophils # (A) 0.4 k/uL (0-0.7); Eosinophils % (A) 3 %; HGB 7.8 gm/dL (13.0-17.5); Hypochromasia Slight; Lymphocytes # (A) 3.4 k/uL (1.0-4.8); Lymphocytes % (A) 30 %; MCH 27.2 pg (25.0-35.0); MCHC 31.3 g/dL (31.0-37.0); MCV 86.6 fL (80.0-100.0); Mean Platelet Volume 8.2; Monocytes # (A) 0.5 k/uL (0-1.0); Monocytes % (A) 5 %; Neutrophils # (A) 6.9 k/uL (1.3-7.7); Neutrophils % (A) 60 %; Platelet Count 223 k/uL (150-450); RBC 2.89 m/uL (4.30-5.90); RDW 17.2 % (11.5-15.5); WBC 11.5 k/uL (3.8-10.6)
[2020-10-08 06:58] LABS: Glucose,Whole Blood 83 mg/dL (75-99)
[2020-10-08] MEDS: INSULIN ASPART (NovoLOG) 100 UNIT/ML VIAL SQ SCH (07:29)
[2020-10-08 07:40] VITALS: BP 150/56; PULSE 66; RESP 18; TEMP 98
[2020-10-08] MEDS: polyethylene glycoL 3350 17 GM POWD.PACK PO SCH (07:53)
[2020-10-08] MEDS: CHOLECALCIFEROL 1,000 UNIT TAB PO SCH (07:53)
[2020-10-08] MEDS: CALCIUM CARBONATE 500 MG CHEWABLE PO SCH (07:53)
[2020-10-08] MEDS: DOCUSATE 100 MG CAP PO SCH (07:55)
[2020-10-08] MEDS: TORSEMIDE 20 MG TAB PO SCH (07:55)
[2020-10-08] MEDS: carvediloL 6.25 MG TAB PO SCH (07:55)
[2020-10-08] MEDS: predniSONE 10 MG TAB PO SCH (07:55)
[2020-10-08] MEDS: PANTOPRAZOLE 40 MG TABLET PO SCH (07:55)
--- NOTE | 2020-10-08 08:50 | P.PN ---
Progress Note - Text Progress Note Date: 10/08/20 Subjective: Patient was seen and examined this morning. He is doing much better this morning much more coherent been up to the bathroom and had a bowel movement. He denies any pain at this time he has no pain down his legs and he feels that his back is more stable. He denies any fevers chills shortness of breath or chest pain. Denies any nausea vomiting. He denies any numbness or tingling. Medicine notes reviewed appreciate consult management Objective: Vital signs are stable at this time. Patient is slightly hypertensive however doing well. He is a little bit more sedated and confused this morning with this is likely due to medication sensitivity. Laboratories are reviewed and as stated in chart. Labs are stable at this time Lumbar spine exam: Dressing is clean dry and intact. Drain is in place and has good output. There is a partially 50 mL and at this morning. Serosanguineous. No hematomas. Minimal tenderness to palpation. Patient has 5/5 strength in all major muscle groups the lower extremities bilaterally. 5/5 strength all major muscle groups of the upper extremity's bilaterally. Patient has a chronically weak right shoulder secondary to rotator cuff tear. Sensation is intact to light touch L2 to S1. Palpable dorsalis pedis was posterior tibial pulses Compartments soft and compressible Negative Lolita's bilaterally Negative Babinskis bilaterally No clonus Assessment: 80-year-old male postop day 3 L2 to pelvis fusion, L2-3, L3 4, L4 5 interbody fusion with decompression, doing well, confusion likely due to medication and kendra to opoids. Plan: -Up ad etelvina., TLSO ordered. TLSO when up and about and walking no need for in bed or in chair -All meals out of bed -Aggressive ambulation protocol -Pain control as needed. Decreased dosages and change to regiment of scheduled Tylenol 1000 mg every 6 hours. OxyIR 5 mg every 6 hours when necessary pain. No IV narcotics. -heparin today for DVT prophylaxis -PT/OT evaluation and treatment -GI prophylaxis, docusate and MiraLAX -Medical management -Dispo: To rehab today. Discussed with pt and via facetime.
[2020-10-08] MEDS: 0.9% NACL WITH KCL 20 MEQ/L 1,000 ML IV SCH (09:49)
[2020-10-08 09:58] LABS: African American GFR (CKD) 42.9 (60.0-200.0); Albumin 2.8 g/dL (3.80-4.90); Albumin/Globulin Ratio 1.75 (1.60-3.17); BUN/Creat Ratio 19.41 Ratio (12.00-20.00); Calcium 8.2 mg/dL (8.7-10.3); Globulin 1.6 g/dL (1.6-3.3); Potassium 4.9 mmol/L (3.5-5.5); Total Bilirubin 0.4 mg/dL (0.3-1.2); Total Protein 4.4 g/dL (6.2-8.2)
[2020-10-08 10:43] LABS: % Iron Saturation 6.37 (15.00-50.00)
--- NOTE | 2020-10-08 13:04 | P.PN ---
Subjective Progress Note Date: 10/08/20 This is an 80-year-old male patient presented to the hospital for an elective lumbar fusion for degenerative lumbar scoliosis with sagittal and coronal imbalance with Dr. Price. Patient is currently postop day 1. Patient has a past medical history of AICD, CVA, diabetes mellitus, GERD, hyperlipidemia, essential hypertension, rheumatoid arthritis, GERD, deafness. Today patient is currently sitting up in chair. Patient reports that his back pain is improved. Patient has been up. Dressing is clean dry and intact. White blood cell is elevated but patient is maintained on daily prednisone along with seeming dexamethasone during procedure. Patient denies any acute complaints. Patient denies chest pain or shortness of breath. Patient denies nausea vomiting or diarrhea. Patient denies any urinary burning or frequency On 10/06/2020 patient was seen and examined on the medical floor he is alert and oriented 3 he is complaining of severe weakness otherwise he denies any complaints there is no fever or chills no headache or dizziness no chest pain no shortness of breath no cough no nausea or vomiting no abdominal pain no diarrhea and no urinary symptoms On 10/07/2020 patient is alert and oriented 3. Patient has been working with physical therapy but it appears that they are recommending rehab. Discussed with patient and rehab was encouraged. Patient denies chest pain. Patient denies shortness breath. Patient denies nausea vomiting or diarrhea. Patient denies any urinary burning or frequency 10/08/2020 patient was seen and examined on the medical floor he is alert and oriented 3 in no apparent distress he is complaining of pain in his back otherwise he denies any complaints there is no fever or chills no headache or dizziness no chest pain no shortness of breath no cough no nausea or vomiting no abdominal pain no diarrhea and no urinary symptoms. He is scheduled to be discharged today to [facility] on [facility] for rehabilitation. Will follow patient at [facility] on [facility] for further evaluation and treatment. Objective - Vital Signs Vital signs: Vital Signs Temp 98.0 F 10/08/20 07:00 Pulse 66 10/08/20 07:00 Resp 18 10/08/20 07:00 BP 150/56 10/08/20 07:00 Pulse Ox 98 10/08/20 07:00 Intake & Output 10/07/20 10/08/20 10/08/20 18:59 06:59 18:59 Output Total 30 450 Balance -30 -450 Output: Drainage 30 Back 30 Urine 450 Other: Voiding Method Toilet Toilet Urinal Urinal # Voids 3 3 # Bowel Movements 1 - Exam Head normocephalic Neck supple Lungs clear to auscultation bilaterally no wheezing or crackles Heart regular rate and rhythm S1-S2, no rub or gallop Abdomen is soft nontender nondistended positive bowel sounds no hepatosplenomegaly Extremities no edema Neuro alert and orientated to 3. Hard of hearing Back dressing is clean dry and intact small amount of shadowing noted to lower dressing - Labs CBC & Chem 7: 10/08/20 06:04 10/08/20 06:04 Labs: Abnormal Lab Results - Last 24 Hours (Table) 10/07/20 10/07/20 10/08/20 Range/Units 17:21 21:22 06:04 WBC 11.5 H (3.8-10.6) k/uL RBC 2.89 L (4.30-5.90) m/uL Hgb 7.8 L (13.0-17.5) gm/dL Hct 25.0 L (39.0-53.0) % RDW 17.2 H (11.5-15.5) % Chloride (96-109) mmol/L BUN (9.0-27.0) mg/dL Creatinine (0.6-1.5) mg/dL Est GFR (CKD-EPI)AfAm (60.0-200.0) Est GFR (CKD-EPI)NonAf (60.0-200.0) POC Glucose (mg/dL) 142 H 169 H (75-99) mg/dL Calcium (8.7-10.3) mg/dL Iron (65-175) ug/dL TIBC (228-460) ug/dL % Saturation (15.00-50.00) ALT (10-49) U/L Total Protein (6.2-8.2) g/dL Albumin (3.80-4.90) g/dL 10/08/20 10/08/20 Range/Units 06:04 06:04 WBC (3.8-10.6) k/uL RBC (4.30-5.90) m/uL Hgb (13.0-17.5) gm/dL Hct (39.0-53.0) % RDW (11.5-15.5) % Chloride 110 H (96-109) mmol/L BUN 33.0 H (9.0-27.0) mg/dL Creatinine 1.7 H (0.6-1.5) mg/dL Est GFR (CKD-EPI)AfAm 42.9 L (60.0-200.0) Est GFR (CKD-EPI)NonAf 37.0 L (60.0-200.0) POC Glucose (mg/dL) (75-99) mg/dL Calcium 8.2 L (8.7-10.3) mg/dL Iron 13 L (65-175) ug/dL TIBC 204 L (228-460) ug/dL % Saturation 6.37 L (15.00-50.00) ALT 9 L (10-49) U/L Total Protein 4.4 L (6.2-8.2) g/dL Albumin 2.80 L (3.80-4.90) g/dL Assessment and Plan Assessment: 1. Status post lumbar fusion with decompression. Patient is currently postop day 3. 2. Diabetes mellitus type 2. Sliding scale and home insulin ordered 3. History of CVA in 2005 4. Hyperlipidemia. Maintained on statin 5. History of biventricular AICD placement 6. Essential hypertension 7. Rheumatoid arthritis 8. Hypothyroidism. Maintained on Synthroid 9. Hyperlipidemia. Maintained on statin 10. History of GERD 11. Elevated WBC this is likely secondary to steroids. Patient received dexamethasone during procedure and is maintained on daily prednisone. Denies any acute complaints 12. Chronic kidney disease. Creatinine 1.80 bun is 26 this does appear around patient's baseline Thank you for this consultation we'll continue to follow patient closely throughout stay Patient will likely need rehab upon discharge to discuss case management
== END 2020-10-08 10:55 | DRG 454 ==
LOC: 2ORMAIN 05:45 → 4SSUR 17:12
PROVIDERS: ADMIT Orthopaedic Surgery; ATTEND Orthopaedic Surgery
PROC: 0SG1071 Fusion of 2 or more Lumbar Vertebral Joints with Autologous Tissue Substitute, Posterior Approach, Posterior Column, Open Approach (ICD-10-PCS; 2020-10-04)
PROC: 0QB00ZZ Excision of Lumbar Vertebra, Open Approach (ICD-10-PCS; 2020-10-04)
PROC: 01NB0ZZ Release Lumbar Nerve, Open Approach (ICD-10-PCS; 2020-10-04)
PROC: 0SG10AJ Fusion of 2 or more Lumbar Vertebral Joints with Interbody Fusion Device, Posterior Approach, Anterior Column, Open Approach (ICD-10-PCS; principal; 2020-10-04 07:00)
DX: M41.56 Other secondary scoliosis, lumbar region (principal); J84.9 Interstitial pulmonary disease, unspecified; D62 Acute posthemorrhagic anemia; M05.10 Rheumatoid lung disease with rheumatoid arthritis of unspecified site; E11.22 Type 2 diabetes mellitus with diabetic chronic kidney disease; N18.30 Chronic kidney disease, stage 3 unspecified; M46.1 Sacroiliitis, not elsewhere classified; Z79.4 Long term (current) use of insulin; M47.816 Spondylosis without myelopathy or radiculopathy, lumbar region; M48.062 Spinal stenosis, lumbar region with neurogenic claudication; E78.5 Hyperlipidemia, unspecified; H91.90 Unspecified hearing loss, unspecified ear; I12.9 Hypertensive chronic kidney disease with stage 1 through stage 4 chronic kidney disease, or unspecified chronic kidney disease; K21.9 Gastro-esophageal reflux disease without esophagitis; E03.9 Hypothyroidism, unspecified; M10.9 Gout, unspecified; G89.29 Other chronic pain; T38.0X5A Adverse effect of glucocorticoids and synthetic analogues, initial encounter; Z79.899 Other long term (current) drug therapy; Z79.82 Long term (current) use of aspirin; Z79.890 Hormone replacement therapy; Z79.52 Long term (current) use of systemic steroids; Z86.73 Personal history of transient ischemic attack (TIA), and cerebral infarction without residual deficits; Z87.01 Personal history of pneumonia (recurrent); Z95.810 Presence of automatic (implantable) cardiac defibrillator; Z90.49 Acquired absence of other specified parts of digestive tract; Z98.890 Other specified postprocedural states; Z98.49 Cataract extraction status, unspecified eye; Z87.891 Personal history of nicotine dependence; Z88.0 Allergy status to penicillin; Z88.8 Allergy status to other drugs, medicaments and biological substances; Z88.1 Allergy status to other antibiotic agents; Z91.041 Radiographic dye allergy status; Z82.49 Family history of ischemic heart disease and other diseases of the circulatory system
CPT/HCPCS: 36415; 72100; 72131; 80048; 80051; 80053; 82805; 83540; 83550; 85025; 85027; 85610; 86850; 86891; 86900; 86901; 87070

== ENCOUNTER 2021-02-01 06:40 | Day surgery (SDC) | payer MEDICARE, BC ==
[2021-01-30 09:23] VITALS: BMI 27.1
[~2021-02-01 06:40] MED LIST changes: -ACETAMINOPHEN TAB 500 MG TAB PO ONE; -DEXAMETHASONE SOD PHOSPHATE 4 MG/ML 1 ML VIAL IV ONE; -GABAPENTIN 300 MG CAP PO ONE; +LACTATED RINGERS 1,000 ML IV SCH; -MIDAZOLAM 2 MG/2 ML VIAL IV PRN; -ONDANSETRON 4 MG/2 ML VIAL IVP ONE; -TRANEXAMIC ACID 1,000 MG in SODIUM CHLORIDE 0.9% 100 ML IVPB ONE
[2021-02-01 07:18] VITALS: TEMP 97.6
[2021-02-01] MEDS ORDERED: LIDOCAINE 1% (10MG/ML) FOR IV START INTRADERMA ONE (07:20)
[2021-02-01] MEDS ORDERED: LACTATED RINGERS 1,000 ML IV ONE (07:20)
[2021-02-01 07:27] LABS: Glucose,Whole Blood 101 mg/dL (75-99)
[2021-02-01] MEDS ORDERED: PROPOFOL 10 MG/ML 20 ML VIAL IV ONE (07:38)
[2021-02-01] MEDS ORDERED: LIDOCAINE 1% INJ 10MG/ML (20 ML MDV) ONE (07:38)
--- NOTE | 2021-02-01 08:09 | P.PCN ---
Date of Procedure: 02/01/21 Procedure(s) Performed: Brief history: Patient is a pleasant 79-year-old white male scheduled for an elective upper endoscopy as well as colonoscopy as a part of evaluation of Iron deficiency anemia. Procedure performed: Esophagogastroduodenoscopy with biopsy Colonoscopy with snare polypectomy, argon plasma coagulation Preoperative diagnosis: Iron deficiency anemia Anesthesia: MAC Procedure: After informed consent was obtained from the patient was brought into the endoscopy unit and IV sedation was administered by anesthesia under continuous monitoring. Initially upper endoscopy was done. The Olympus GF 160 video endoscope was inserted inserted into the mouth and esophagus intubated without a ny difficulty and was gradually advanced into the stomach and duodenum and carefully examined. The bulb and second part of the duodenum appeared normal. His were done from the duodenum to rule out celiac disease. The scope was then withdrawn into the stomach adequately insufflated with air and upon careful examination the antrum had mild gastritis and biopsies were done from this area. The body, cardia and fundus appeared normal. The scope was then withdrawn into the esophagus. The GE junction was located at 40 cm to the incisors. It appeared regular with no erythema erosions or ulcerations. Rest of the esophagus appeared normal. Patient tolerated the procedure well. At this time the patient continued to remain sedation. Initial digital rectal examination was normal. Olympus CF 160 video colonoscope was then inserted into the rectum and gradually advanced to the cecum without any difficulty. Careful examination was performed as the scope was gradually being withdrawn. The prep was excellent. The base of the cecum there was a 5 mm and 2 cm broad-based polyps removed by snare polypectomy. Also there was a 1.5 cm nonbleeding arteriovenous malformation was coagulated using argon plasma. The rest of the cecum, ascending colon appeared normal. The transverse colon there was a 5 mm polyp that was removed by snare polypectomy. Rest of the transverse colon, descending colon, sigmoid colon and rectum appeared normal. scattered sigmoid diverticulosis seen. Retroflexion was performed in the rectum and grade 2 internal hemorrhoidsr were noted. Patient tolerated the procedure well. Impression: 1. Upper endoscopy revealed mild antral gastritis and small hiatal hernia 2. Colonoscopy revealed: a) 5 mm and 2 cm broad-based cecal polyp status post polypectomy b) 5 mm descending colon polyp serous posterior polypectomy c) 1.5 cm nonbleeding arteriovenous malformation in the cecum status post argon plasma coagulation d) scattered sigmoid diverticulosis e) 2 grade 2 internal hemorrhoids Recommendations: Findings of this examination were discussed with the patient as well as his family. He was advised to follow with the biopsy results. If the biopsy shows an adenoma he can have a repeat colonoscopy in 3 years.
[2021-02-01 08:17] VITALS: PULSE 60; RESP 16
[2021-02-01 08:32] VITALS: BP 164/71
== END 2021-02-01 09:00 | disposition home or self-care (01) ==
LOC: ORWHC2ENDO 06:40
PROVIDERS: ATTEND Internal Medicine Gastroenterology
DX: D12.0 Benign neoplasm of cecum (principal); D12.4 Benign neoplasm of descending colon; Q27.33 Arteriovenous malformation of digestive system vessel; D50.9 Iron deficiency anemia, unspecified; K29.50 Unspecified chronic gastritis without bleeding; K44.9 Diaphragmatic hernia without obstruction or gangrene; K57.30 Diverticulosis of large intestine without perforation or abscess without bleeding; M06.9 Rheumatoid arthritis, unspecified; K64.1 Second degree hemorrhoids; Z95.810 Presence of automatic (implantable) cardiac defibrillator; J40 Bronchitis, not specified as acute or chronic; E07.9 Disorder of thyroid, unspecified; M10.9 Gout, unspecified; Z86.73 Personal history of transient ischemic attack (TIA), and cerebral infarction without residual deficits; Z97.2 Presence of dental prosthetic device (complete) (partial); K21.9 Gastro-esophageal reflux disease without esophagitis; Z79.4 Long term (current) use of insulin; Z79.82 Long term (current) use of aspirin; Z79.899 Other long term (current) drug therapy; Z88.1 Allergy status to other antibiotic agents; Z88.0 Allergy status to penicillin
CPT/HCPCS: 88305; 45382; 45385; 43239; J2001; J2704

== ENCOUNTER → 2021-04-10 | Outpatient (CLI) | payer MEDICARE, BC ==
--- NOTE | 2021-04-10 15:27 | CT ---
EXAMINATION TYPE: CT lumbar spine wo con DATE OF EXAM: 04/10/2021 2:20 PM COMPARISON: CT lumbar spine October 05, 2020 HISTORY: Low back pain; weakness in both legs. Most recent surgery October 04, 2020 CT DLP: 1014 mGycm Automated exposure control for dose reduction was used. Unenhanced CT of the lumbar spine was performed. Bone and soft tissue window settings are submitted as well as coronal and sagittal reconstructions. Persistent posterior interpedicular rods and screws transfixing L2-S1 levels bilaterally. Persistent vertebral plasty at L2 level. Persistent and stable grade 1 anterolisthesis L3 on L4. Artificial disc material L2-L3 level redemonstrated. Artificial metallic disc material L3-L4 and L4-L5 level redemon strated. Moderate to severe disc space narrowing L5-S1 level redemonstrated. Levoconvex scoliosis ranjeet tered at L2-L3 level redemonstrated. Loss of normal lumbar lordosis. Hardware positioning and alignme nt stable. Extensive artifact from metallic fusion hardware again seen. Evidence of posterior decompression L2-L 5 levels. No significant interval change. No new large posterior disc herniations. Axial images at T12-L1 level demonstrate mild to moderate broad disc bulge mildly effacing the anteri or thecal sac and mild facet arthropathy. Axial images at L1-L2 level demonstrate vacuum disc phenomenon and moderate broad disc bulge effacing the anterior thecal sac. Sigmoid colonic diverticula partially imaged. Moderate calcified plaque of the aorta extends into bra nmh vessels. Some cortical thinning both kidneys redemonstrated. IMPRESSION: As above. No significant change from most recent CT.
== END | disposition home or self-care (01) ==
LOC: RADCTMAIN 13:52
PROVIDERS: ATTEND Orthopaedic Surgery
DX: M51.26 Other intervertebral disc displacement, lumbar region (principal); M48.07 Spinal stenosis, lumbosacral region; M43.16 Spondylolisthesis, lumbar region; M41.9 Scoliosis, unspecified; M12.88 Other specific arthropathies, not elsewhere classified, other specified site
CPT/HCPCS: 72131

== ENCOUNTER → 2021-05-03 | Outpatient (CLI) | payer MEDICARE, BC ==
[2021-05-03 20:10] LABS: Basophils # (A) 0.11 X 10*3/uL (0.00-0.10); Basophils % (A) 0.7 %; Eosinophils # (A) 1.04 X 10*3/uL (0.04-0.35); Eosinophils % (A) 6.4 %; HCT 42.5 % (39.6-50.0); HGB 13.2 g/dL (13.0-17.0); Lymphocytes # (A) 6.31 X 10*3/uL (0.90-5.00); Lymphocytes % (A) 39.1 %; MCH 29.7 pg (27.0-32.0); MCHC 31.1 g/dL (32.0-37.0); MCV 95.7 fL (80.0-97.0); Mean Platelet Volume 11.7 fL (9.5-12.2); Monocytes # (A) 1.35 X 10*3/uL (0.20-1.00); Monocytes % (A) 8.4 %; Neutrophils # (A) 7.19 X 10*3/uL (1.80-7.70); Neutrophils % (A) 44.6 %; Platelet Count 316 X 10*3/uL (140-440); RBC 4.44 X 10*6/uL (4.40-5.60); RDW 16.5 % (11.5-14.5); WBC 16.13 X 10*3/uL (4.50-10.00)
[2021-05-03 21:26] LABS: ALT 18 U/L (10-49); AST 18 U/L (14-35); African American GFR (CKD) 53.8 (60.0-200.0); Alkaline Phosphatase 58 U/L (41-126); C Reactive Protein <0.4 mg/dL (0.0-0.8); Calcium 8.9 mg/dL (8.7-10.3); Carbon Dioxide 26.4 mmol/L (21.6-31.8); Chloride 105 mmol/L (96-109); Globulin 2.5 g/dL (1.6-3.3); Glucose 153 mg/dL (70-110); Non-African American GFR(CKD) 46.5 (60.0-200.0); Potassium 4.6 mmol/L (3.5-5.5); Sodium 141 mmol/L (135-145); Total Bilirubin 0.4 mg/dL (0.3-1.2)
[2021-05-03 23:54] LABS: Erythrocyte Sedimentation Rate 29 mm/Hr (0-20)
== END | disposition home or self-care (01) ==
LOC: LABWHC1 11:47
PROVIDERS: ATTEND Orthopaedic Surgery
DX: M54.5 Low back pain (principal)
CPT/HCPCS: 36415; 80053; 85025; 85652; 86140

== ENCOUNTER → 2021-05-19 | Outpatient (CLI) | payer MEDICARE, BC ==
--- NOTE | 2021-05-19 16:52 | CT ---
EXAMINATION TYPE: CT lumbar spine wo con DATE OF EXAM: 05/19/2021 COMPARISON: 04/10/2021 HISTORY: Low back pain. CT DLP: 527 mGycm CONTRAST: None TECHNIQUE: CT of the lumbar spine is performed on a spiral scan at 3 mm thick sections. Reconstructed images are performed in the coronal and sagittal planes. FINDINGS: Fixation pedicle screws are present L2-L5. Laminectomies performed through these levels. S 1 pedicle screws are present There is straightening of the lumbar spine sagittal plane. Scoliosis is probably projection. Vacuum d isc phenomenon is present L1-L2 3 disc spaces are utilized at L3-4 L4-5. There is loss of disc at L5- S1. There is some mild disc bulging with anterior thecal sac compression is present at L1-2. IMPRESSION: 1. Postsurgical changes and advanced degenerative disc changes through the lumbar spine. No spinal ca nal stenosis is evident. 2. Scoliosis
== END | disposition home or self-care (01) ==
LOC: RADCTMAIN 15:56
PROVIDERS: ATTEND Orthopaedic Surgery
DX: M51.36 Other intervertebral disc degeneration, lumbar region (principal); M41.86 Other forms of scoliosis, lumbar region
CPT/HCPCS: 72131

== ENCOUNTER 2021-06-05 09:38 | Inpatient (IN) | payer MEDICARE, BC ==
--- NOTE | 2021-06-05 10:27 | ED ---
Neuro HPI - General Chief Complaint: Neuro Symptoms/Deficit Stated Complaint: R Arm Numbness Source: family Mode of arrival: wheelchair Limitations: physical limitation - History of Present Illness Is the patient presenting with stroke symptoms?: Yes Initial Comments: Patient is an 81-year-old male with past history of CVA, diabetes, hypertension who presents to the emergency department with a reported stroke like symptoms. Patient went to bed at 10 PM last night asymptomatic. Awoke at 8 AM this morning with right-sided numbness and tingling. Patient also had weakness in his right lower extremity. Patient is not on any blood thinners. No facial droop or speech difficulties. Patient had no previous deficits from prior stroke. No recent head trauma. Patient denies any visual changes. Denies any chest pain. No other alleviating, ST or modifying factors - Related Data Home Medications: Home Medications Medication Instructions Recorded Confirmed Omeprazole [PriLOSEC] 20 mg PO DAILY 11/24/18 06/05/21 Torsemide [Demadex] 10 mg PO DAILY 11/24/18 06/05/21 Pravastatin Sodium [Pravachol] 40 mg PO HS 02/27/19 06/05/21 predniSONE 10 mg PO Q48H 10/06/19 06/05/21 allopurinoL [Zyloprim] 100 mg PO AC-SUPPER 10/09/19 06/05/21 Carvedilol [Coreg] 6.25 mg PO BID 11/30/19 06/05/21 Aspirin [Adult Low Dose Aspirin EC] 81 mg PO DAILY 03/23/20 06/05/21 Gabapentin 300 mg PO TID 01/30/21 06/05/21 Calcium Carbonate/Vitamin D3 1 tab PO DAILY 06/05/21 06/05/21 [Calcium 600 mg-Vit D3 5 mcg (200 unit)] INSULIN ASPART (NovoLOG) [NovoLOG 14 unit SQ AC-TID 06/05/21 06/05/21 (formulary)] INSULIN ASPART (NovoLOG) [NovoLOG See Protocol SQ AC-TID PRN 06/05/21 06/05/21 (formulary)] Insulin Detemir (Levemir) [Levemir] 28 unit SQ HS 06/05/21 06/05/21 Insulin Detemir (Levemir) [Levemir] See Protocol SQ HS PRN 06/05/21 06/05/21 Tamsulosin HCl [Flomax] 0.4 mg PO DAILY 06/05/21 06/05/21 oxyCODONE-APAP 5-325MG [Percocet 1 - 2 tab PO Q4-6H PRN 06/05/21 06/05/21 5-325 mg] predniSONE 5 mg PO Q48H 06/05/21 06/05/21 Allergies/Adverse Reactions: Allergies Allergy/AdvReac Type Severity Reaction Status Date / Time amlodipine Allergy swelling Verified 06/05/21 10:54 of feet doxycycline Allergy Anaphylaxis Verified 06/05/21 10:54 Iodinated Contrast Media Allergy Anaphylaxis Verified 06/05/21 10:54 [Iodinated Contrast- Oral and IV Dye] iodine Allergy Anaphylaxis Verified 06/05/21 10:54 metronidazole [From Flagyl] Allergy Rash/Hives Verified 06/05/21 10:54 shrimp Allergy Rash/Hives Verified 06/05/21 10:54 acarbose AdvReac Abdominal Verified 06/05/21 10:54 Pain adhesive tape AdvReac SKIN PULLS Verified 06/05/21 10:54 OFF " amoxicillin trihydrate AdvReac Nausea & Verified 06/05/21 10:54 [From Augmentin] Vomiting potassium clavulanate AdvReac Nausea & Verified 06/05/21 10:54 [From Augmentin] Vomiting Review of Systems ROS Statement: Those systems with pertinent positive or pertinent negative responses have been documented in the HPI. ROS Other: All systems not noted in ROS Statement are negative. General Exam Limitations: physical limitation Stroke MDM - Lab Data Result diagrams: 06/05/21 10:12 06/05/21 10:12 Lab Results 06/05/21 06/05/21 06/05/21 Range/Units 10:12 10:12 10:12 WBC 15.8 H (3.8-10.6) k/uL RBC 5.07 (4.30-5.90) m/uL Hgb 15.2 (13.0-17.5) gm/dL Hct 47.5 (39.0-53.0) % MCV 93.7 (80.0-100.0) fL MCH 29.9 (25.0-35.0) pg MCHC 32.0 (31.0-37.0) g/dL RDW 15.4 (11.5-15.5) % Plt Count 340 (150-450) k/uL MPV 8.2 Neutrophils % 55 % Lymphocytes % 32 % Monocytes % 5 % Eosinophils % 5 % Basophils % 1 % Neutrophils # 8.8 H (1.3-7.7) k/uL Lymphocytes # 5.0 H (1.0-4.8) k/uL Monocytes # 0.7 (0-1.0) k/uL Eosinophils # 0.8 H (0-0.7) k/uL Basophils # 0.1 (0-0.2) k/uL Manual Slide Review Performed RBC Morphology Normal PT 9.5 (9.0-12.0) sec INR 0.9 (<1.2) APTT 22.7 (22.0-30.0) sec Sodium 136 L (137-145) mmol/L Potassium 5.2 H (3.5-5.1) mmol/L Chloride 99 (98-107) mmol/L Carbon Dioxide 29 (22-30) mmol/L Anion Gap 8 mmol/L BUN 28 H (9-20) mg/dL Creatinine 1.38 H (0.66-1.25) mg/dL Est GFR (CKD-EPI)AfAm 55 (>60 ml/min/1.73 sqM) Est GFR (CKD-EPI)NonAf 47 (>60 ml/min/1.73 sqM) Glucose 206 H (74-99) mg/dL POC Glucose (mg/dL) (75-99) mg/dL POC Glu High Tension Tester ID Calcium 9.4 (8.4-10.2) mg/dL Total Bilirubin 0.7 (0.2-1.3) mg/dL AST 23 (17-59) U/L ALT 13 (4-49) U/L Alkaline Phosphatase 77 (38-126) U/L Troponin I (0.000-0.034) ng/mL Total Protein 6.5 (6.3-8.2) g/dL Albumin 3.6 (3.5-5.0) g/dL 06/05/21 06/05/21 Range/Units 10:12 10:12 WBC (3.8-10.6) k/uL RBC (4.30-5.90) m/uL Hgb (13.0-17.5) gm/dL Hct (39.0-53.0) % MCV (80.0-100.0) fL MCH (25.0-35.0) pg MCHC (31.0-37.0) g/dL RDW (11.5-15.5) % Plt Count (150-450) k/uL MPV Neutrophils % % Lymphocytes % % Monocytes % % Eosinophils % % Basophils % % Neutrophils # (1.3-7.7) k/uL Lymphocytes # (1.0-4.8) k/uL Monocytes # (0-1.0) k/uL Eosinophils # (0-0.7) k/uL Basophils # (0-0.2) k/uL Manual Slide Review RBC Morphology PT (9.0-12.0) sec INR (<1.2) APTT (22.0-30.0) sec Sodium (137-145) mmol/L Potassium (3.5-5.1) mmol/L Chloride (98-107) mmol/L Carbon Dioxide (22-30) mmol/L Anion Gap mmol/L BUN (9-20) mg/dL Creatinine (0.66-1.25) mg/dL Est GFR (CKD-EPI)AfAm (>60 ml/min/1.73 sqM) Est GFR (CKD-EPI)NonAf (>60 ml/min/1.73 sqM) Glucose (74-99) mg/dL POC Glucose (mg/dL) 203 H (75-99) mg/dL POC Glu High Tension Tester ID [place], Agueda Calcium (8.4-10.2) mg/dL Total Bilirubin (0.2-1.3) mg/dL AST (17-59) U/L ALT (4-49) U/L Alkaline Phosphatase (38-126) U/L Troponin I 0.110 H* (0.000-0.034) ng/mL Total Protein (6.3-8.2) g/dL Albumin (3.5-5.0) g/dL - Medical Decision Making Upon arrival patient is placed in room 8. NIH is obtained and the patient scores a 3. Stroke is activated with an onset of time as 10 PM last night. I did speak with Dr. Moffett. IV is placed. I did send over the patient to CT however CT is requesting that he be pretreated before contrasted is administered. Patient was given retreatment medications. Laboratory studies were obtained. Review laboratory studies demonstrate a creatinine of 1.3, troponin is 0.110. CT of the patient's brain demonstrates age-related atrophic and chronic small vessel ischemic change. CT injected demonstrates proximal ICA of 70% occlusion and right 50-60%. Results are discussed with the patient. He is given a full dose aspirin. Recommend hospital physician for vascular and neurology consult. NH remained stable. Patient did agree to this and he was transported to floor in stable condition 06/05/21 10:49 EKG demonstrates atrial sensed ventricularly paced rhythm with a rate of 79. HI interval 144. QRS 138. QTC of 499. No acute ST segment elevations or depressions. Past Medical History Past Medical History: CVA/TIA, Diabetes Mellitus, GERD/Reflux, Hearing Disorder / Deafness, Hyperlipidemia, Hypertension, Musculoskeletal Disorder, Pneumonia, Rheumatoid Arthritis (RA), Thyroid Disorder Additional Past Medical History / Comment(s): LOW IRON LEVELS AND FATIGUE. Hx CMP w/ BiVICD. 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 chronic back pain, History of Any Multi-Drug Resistant Organisms: None Reported Past Surgical History: AICD, Appendectomy, Back Surgery, Heart Catheterization, Joint Replacement, Tonsillectomy Additional Past Surgical History / Comment(s): Biventricular AICD placement/[employer], battery change r/t recall, Back surgery 6, colonoscopy, past hx of pain clinic procedure, cataract sx, Oral sx "to smooth down bones in mouth." 01/18/20 RT TOTAL KNEE; 02/24/20 Repair Rt knee tendon. Past Anesthesia/Blood Transfusion Reactions: No Reported Reaction Additional Past Anesthesia/Blood Transfusion Reaction / Comment(s): blood transfusion-no reaction; BP was high when came in for his 1st pain procedure- procedure was canceled- states no problem since. Type of Cardiac Device: AICD Device Placement Date:: 2016 Past Psychological History: No Psychological Hx Reported Smoking Status: Former smoker Past Alcohol Use History: None Reported Past Drug Use History: None Reported - Past Family History Father History Unknown: Yes Mother Family Medical History: Hyperlipidemia, Hypertension, Myocardial Infarction (MS) Additional Family Medical History / Comment(s): . Course Vital Signs 06/05/21 06/05/21 06/05/21 09:44 10:00 10:02 Temperature 97.8 F Pulse Rate 81 70 71 Pulse Rate [ Pulse Oximetery ] Respiratory 18 16 16 Rate Blood Pressure 152/68 162/65 174/68 Blood Pressure [Right Arm] O2 Sat by Pulse 97 96 97 Oximetry 06/05/21 06/05/21 11:16 12:35 Temperature 98.4 F Pulse Rate 60 Pulse Rate [ 74 Pulse Oximetery ] Respiratory 16 18 Rate Blood Pressure 179/77 Blood Pressure 194/86 [Right Arm] O2 Sat by Pulse 98 94 L Oximetry - Reevaluation(s) Reevaluation #1: Patient is not allergic to contrast. Told not to take due to decreased creatinine. I recommended CT due to acute stroke symptoms. Patient will be hydrated. Spoke with electrocardiograph technician who states she will not do CT without radiologist approval - calling radiologist now. I stated pt is okay for CT with contrast and requesting them to take patient. 06/05/21 10:25 Reevaluation #2: 06/05/21 10:28 Dr. Mcnamara requesting pretreatment meds - will not perform CT without meds. Meds ordered. CT delayed due to this reason Reevaluation #3: Case discussed with Dr. Maldonado 06/05/21 10:32 Disposition Clinical Impression: Cerebrovascular accident (CVA), Right sided weakness Disposition: ADMITTED IP TO THIS [facility] Condition: Serious Is patient prescribed a controlled substance at d/c from ED?: No Decision to Admit Reason: Admit from EC Decision Date: 06/05/21 Decision Time: 12:04
[2021-06-05] MEDS ORDERED: SODIUM CHLORIDE 0.9% 1,000 ML IV ONE (10:29)
[2021-06-05] MEDS ORDERED: diphenhydrAMINE 50 MG/ML 1 ML VIAL IVP STA (10:29)
[2021-06-05] MEDS ORDERED: methylPREDNISolone SOD SUCCI 125 MG/2 ML VIAL IV STA (10:29)
[2021-06-05] MEDS ORDERED: FAMOTIDINE 20 MG/2 ML VIAL IV STA (10:29)
[2021-06-05 10:32] LABS: Glucose,Whole Blood 203 mg/dL (75-99)
--- NOTE | 2021-06-05 11:15 | CT ---
EXAMINATION TYPE: CT brain wo con DATE OF EXAM: 06/05/2021 COMPARISON: None HISTORY: CODE STROKE CT DLP: 1675.[address] of the brain was performed. The ventricles, basal cisterns and sulci overlying the cerebral convexities demonstrate mild enlargem ent. Remote insult posterior right parietal region. There is no evidence for intracranial hemorrhage or sulcal effacement. There is decreased attenuation about the periventricular white matter and deep white matter of both c erebral hemispheres, compatible with chronic small vessel ischemia. Differential diagnosis does inclu de demyelination. No mass effects are seen.No midline shift. Osseous calvarium is intact. If symptoms persist consider MRI. IMPRESSION: 1. Age related atrophic and chronic small vessel ischemic change without acute intracranial process s een at this time.
--- NOTE | 2021-06-05 11:50 | CT ---
EXAMINATION TYPE: CT angio head neck DATE OF EXAM: 06/05/2021 COMPARISON: None HISTORY: CODE STROKE CT DLP: 1675.7 mGycm CONTRAST: Performed without and with IV Contrast, patient injected with 65 ml mL of Isovue 370. Combination Contrast CTA cervical carotids and [place] CTA cervical carotids with 3-D recons truction Contrast CTA of the cervical carotids was performed 3-D reconstruction imaging obtained at a separate workstation. Right carotid system: Mild plaque is seen of the right common carotid artery. There is mild plaque a lso noted at the carotid bulb and proximal ICA. Estimated diameter reduction of 50-60%. ECA is null nt. Right vertebral artery appears unremarkable. Left carotid system: Mild plaque is seen of the left common carotid artery. There is mild to moderat e plaque also noted at the carotid bulb and proximal ICA. Estimated diameter reduction approximately 70%. ECA is patent. Left vertebral artery appears unremarkable. IMPRESSION: 1. Estimated diameter reduction proximal left ICA of 70% on the right 50-60%. CTA [place] with 3-D reconstruction Contrast CTA of the [place] was performed 3-D reconstruction imaging obtained at a separate workstation. Vertebrobasilar system as well as intracranial portions of the internal carotid arteries and their ma [place] tributaries are patent. I do not see evidence for sizable aneurysm or vascular malformation. Pl ease note MRI provides greater sensitivity and specificity. Visualized brain appears grossly unremar kable. IMPRESSION: 1. No significant abnormality.
[2021-06-05] MEDS ORDERED: ASPIRIN 325 MG TAB PO STA (12:01)
[2021-06-05] MEDS: SODIUM CHLORIDE 0.9% 1,000 ML IV SCH ×2 (12:07→20:35)
[2021-06-05 12:14] LABS: Albumin 3.6 g/dL (3.5-5.0); Calcium 9.4 mg/dL (8.4-10.2); INR 0.9 (<1.2); Partial Thromboplastin Time 22.7 sec (22.0-30.0); Potassium 5.2 mmol/L (3.5-5.1); Prothrombin Time 9.5 sec (9.0-12.0); Total Bilirubin 0.7 mg/dL (0.2-1.3); Total Protein 6.5 g/dL (6.3-8.2)
[2021-06-05 12:18] LABS: Basophils # (A) 0.1 k/uL (0-0.2); Basophils % (A) 1 %; Eosinophils # (A) 0.8 k/uL (0-0.7); Eosinophils % (A) 5 %; HCT 47.5 % (39.0-53.0); HGB 15.2 gm/dL (13.0-17.5); Lymphocytes % (A) 32 %; MCH 29.9 pg (25.0-35.0); MCV 93.7 fL (80.0-100.0); Mean Platelet Volume 8.2; Monocytes # (A) 0.7 k/uL (0-1.0); Monocytes % (A) 5 %; Neutrophils # (A) 8.8 k/uL (1.3-7.7); Neutrophils % (A) 55 %; Platelet Count 340 k/uL (150-450); RBC 5.07 m/uL (4.30-5.90); RDW 15.4 % (11.5-15.5); WBC 15.8 k/uL (3.8-10.6)
[2021-06-05] MEDS ORDERED: ATORVASTATIN 40 MG TAB PO SCH (12:30)
[2021-06-05] MEDS: CLOPIDOGREL 75 MG TAB PO SCH (15:03)
[2021-06-05] MEDS: oxyCODONE-APAP 5-325MG 1 EACH TAB PO PRN (15:07)
--- NOTE | 2021-06-05 15:49 | P.CNNES ---
History of Present Illness Consult date: 06/05/21 Requesting physician: Erin Kaplan Reason for Consult: Acute right-sided weakness, acute CVA History of Present Illness: Patient is a 81-year-old right-handed male, brought in by his to the hospital today at 9:38 AM for possible CVA. Patient has history of diabetes hypertension, currently taking aspirin 81 mg daily. Patient went to bed last night at 10-11 p.m. in usual state of health. He slept through the night. He woke up this morning at 8 AM and could not pick his right arm or right leg. He did not have any slurred speech or facial droop. His helped him get up, and gave him some coffee. After some time, his symptoms improved to the point that he was able to get up. As his symptoms persisted his brought him to the hospital. He states that his symptoms are significantly improved. Vital signs on arrival blood pressure 152/68, pulse [address] head showed age-related atrophic and chronic small vessel ischemic changes without acute intracranial process seen at this time. CTA of head and neck showed estimated diameter reduction proximal left ICA of 70%, and on the right 50-60%. CTA of [place] of [place] is normal. EKG shows atrial sensed ventricular paced rhythm. Biventricular pacemaker detected. Patient's blood tests shows WBC 15.8 hemoglobin 15.2 and platelets are normal 340. PT/PTT normal, sodium 136 potassium 5.2, BUN 28, creatinine 1.38. Troponin is mildly elevated 0.11/0.034. Patient's last hemoglobin A1c 6.6 on 11/16/2020. Lipid panel was normal with LDL 59.4 on 11/16/2020. B12 431, TSH normal. Patient was not a candidate for TPA, as he woke up with this neurological symptoms and last known well was 10 hours prior to waking up. Patient takes aspirin 81 mg, gabapentin 300 mg 3 times a day, Flomax, insulin, oxycodone, prednisone 5 mg every 48 hours, Coreg 6.25 mg twice a day, allopurinol, prednisone 10 mg every 48 hours Pravachol 40 mg and Demadex. Patient has history of diabetes since 1996. He has "arthritis of the lungs". He had history of a small stroke in 2005, that affected his left hand but recovered very well. Patient has hypertension, hyperlipidemia. He has smoked 2 packs per day for 30 years, quit in 1996. Review of Systems As above in detail. Denies any headache, problem with the vision. Denies any double vision, hoarseness, sore throat, dysphagia. Denies any chest pain shortness of breath. Denies any wheezing cough. No fever or chills. No rash. Patient does have arthritis. Denies anxiety and depression. No weight loss. History of right total knee replacement, low back pain. Back surgeries. Past Medical History Past Medical History: CVA/TIA, Diabetes Mellitus, GERD/Reflux, Hearing Disorder / Deafness, Hyperlipidemia, Hypertension, Musculoskeletal Disorder, Pneumonia, Rheumatoid Arthritis (RA), Thyroid Disorder Additional Past Medical History / Comment(s): LOW IRON LEVELS AND FATIGUE. Hx CMP w/ BiVICD. 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 chronic back pain, History of Any Multi-Drug Resistant Organisms: None Reported Past Surgical History: AICD, Appendectomy, Back Surgery, Heart Catheterization, Joint Replacement, Tonsillectomy Additional Past Surgical History / Comment(s): Biventricular AICD placement/[employer], battery change r/t recall, Back surgery 6, colonoscopy, past hx of pain clinic procedure, cataract sx, Oral sx "to smooth down bones in mouth." 01/18/20 RT TOTAL KNEE; 02/24/20 Repair Rt knee tendon. Past Anesthesia/Blood Transfusion Reactions: No Reported Reaction Additional Past Anesthesia/Blood Transfusion Reaction / Comment(s): blood transfusion-no reaction; BP was high when came in for his 1st pain procedure-procedure was canceled- states no problem since. Type of Cardiac Device: AICD Device Placement Date:: 2016 Past Psychological History: No Psychological Hx Reported Smoking Status: Former smoker Past Alcohol Use History: None Reported Past Drug Use History: None Reported - Past Family History Father History Unknown: Yes Mother Family Medical History: Hyperlipidemia, Hypertension, Myocardial Infarction ([place]) Additional Family Medical History / Comment(s): . Medications and Allergies Home Medications Medication Instructions Recorded Confirmed Type Omeprazole [PriLOSEC] 20 mg PO DAILY 11/24/18 06/05/21 History Torsemide [Demadex] 10 mg PO DAILY 11/24/18 06/05/21 History Pravastatin Sodium [Pravachol] 40 mg PO HS 02/27/19 06/05/21 History predniSONE 10 mg PO Q48H 10/06/19 06/05/21 History allopurinoL [Zyloprim] 100 mg PO AC-SUPPER 10/09/19 06/05/21 History Carvedilol [Coreg] 6.25 mg PO BID 11/30/19 06/05/21 History Aspirin [Adult Low Dose Aspirin EC] 81 mg PO DAILY 03/23/20 06/05/21 History Gabapentin 300 mg PO TID 01/30/21 06/05/21 History Calcium Carbonate/Vitamin D3 1 tab PO DAILY 06/05/21 06/05/21 History [Calcium 600 mg-Vit D3 5 mcg (200 unit)] INSULIN ASPART (NovoLOG) [NovoLOG 14 unit SQ AC-TID 06/05/21 06/05/21 History (formulary)] INSULIN ASPART (NovoLOG) [NovoLOG See Protocol SQ AC-TID PRN 06/05/21 06/05/21 History (formulary)] Insulin Detemir (Levemir) [Levemir] 28 unit SQ HS 06/05/21 06/05/21 History Insulin Detemir (Levemir) [Levemir] See Protocol SQ HS PRN 06/05/21 06/05/21 History Tamsulosin HCl [Flomax] 0.4 mg PO DAILY 06/05/21 06/05/21 History oxyCODONE-APAP 5-325MG [Percocet 1 - 2 tab PO Q4-6H PRN 06/05/21 06/05/21 History 5-325 mg] predniSONE 5 mg PO Q48H 06/05/21 06/05/21 History Allergies Allergy/AdvReac Type Severity Reaction Status Date / Time amlodipine Allergy swelling Verified 06/05/21 10:54 of feet doxycycline Allergy Anaphylaxis Verified 06/05/21 10:54 Iodinated Contrast Media Allergy Anaphylaxis Verified 06/05/21 10:54 [Iodinated Contrast- Oral and IV Dye] iodine Allergy Anaphylaxis Verified 06/05/21 10:54 metronidazole [From Flagyl] Allergy Rash/Hives Verified 06/05/21 10:54 shrimp Allergy Rash/Hives Verified 06/05/21 10:54 acarbose AdvReac Abdominal Verified 06/05/21 10:54 Pain adhesive tape AdvReac SKIN PULLS Verified 06/05/21 10:54 OFF " amoxicillin trihydrate AdvReac Nausea & Verified 06/05/21 10:54 [From Augmentin] Vomiting potassium clavulanate AdvReac Nausea & Verified 06/05/21 10:54 [From Augmentin] Vomiting Physical Examination - Vital Signs Vital Signs: Vital Signs Temp Pulse Resp BP Pulse Ox 06/05/21 11:16 60 16 179/77 98 06/05/21 10:02 71 16 174/68 97 06/05/21 10:00 70 16 162/65 96 06/05/21 09:44 97.8 F 81 18 152/68 97 Intake and Output 06/04/21 06/05/21 06/05/21 22:59 06:59 14:59 Other: Weight 90.718 kg Patient is an elderly male, in no acute distress. Patient is alert, awake, oriented to time place and person. Speech and language functions are normal. Attention, concentration and fund of knowledge is adequate. On cranial examination, pupils are round and reacting to light, visual ramirez are full on confrontation with no neglect on double simultaneous stimulation, extraocular muscles are intact with no nystagmus. Face is symmetric, tongue protrudes to the midline. Palatal elevation and sensation normal, hearing and shoulder shrug normal, facial sensation normal. On muscle strength testing, there is no pronator drift and the strength is normal in arms and legs distally and proximally, except right deltoid 4- and right hip flexion about 5-4+. Deep tendon reflexes are 1+ and plantars are downgoing. Sensory to touch is decreased in the right arm and leg as compared to left. Cerebellar function showed no ataxia for [id number] testing. No dysdiadochokinesia. Tone and bulk of muscles normal. Gait: Patient is able to walk, although appears slightly wobbly but has much improved as compared to this morning. On general examination, there is no carotid bruit or murmur, S1-S2 audible. Abdomen is soft nontender. Chest is clear. Peripheral pulses are present. Results - Laboratory Findings CBC and BMP: 06/05/21 10:12 06/05/21 10:12 Abnormal Lab Findings: Abnormal Labs 06/05/21 06/05/21 06/05/21 10:12 10:12 10:12 WBC 15.8 H Neutrophils # 8.8 H Lymphocytes # 5.0 H Eosinophils # 0.8 H Sodium 136 L Potassium 5.2 H BUN 28 H Creatinine 1.38 H Glucose 206 H POC Glucose (mg/dL) Troponin I 0.110 H* 06/05/21 10:12 WBC Neutrophils # Lymphocytes # Eosinophils # Sodium Potassium BUN Creatinine Glucose POC Glucose (mg/dL) 203 H Troponin I Assessment and Plan Assessment: * Probable acute stroke/TIA manifesting with right hemiparesis mainly involving the right arm and leg. Patient still has slightly decreased sensation of the right arm and leg as compared to the left, and also with mild proximal weakne ss in the same extremities. * Diabetes * Hypertension * Hyperlipidemia * Bilateral ICA stenosis, left side 70% (symptomatic), whereas moderate 50-60% right side. * Pacemaker placement. * X tobacco use Plan: * Patient probably has stroke/TIA. Patient's neurological symptoms have much improved, with mild residual right-sided numbness involving arm and leg. * Patient was on aspirin 81 mg. We will add Plavix 75 mg to the regimen. * Patient has bilateral ICA stenosis. Suggest vascular surgical consultation. * 2-D echo with bubble study to rule out PFO. * Fasting lipid panel, hemoglobin A1c. * Telemetry monitoring rule out arrhythmia/A. fib. * Patient cannot have MRI due to pacemaker. * Neurology will follow.
--- NOTE | 2021-06-05 16:02 | P.GSCN ---
History of Present Illness Consult date: 06/05/21 Reason for Consult: CVA, carotid stenosis History of present illness: This is a 81-year-old white male who presented to the emergency department as a code stroke with complaints of right upper and lower extremity weakness that began today. He has a past medical history of TIA, diabetes mellitus, GERD, hearing disorder, hyperlipidemia, hypertension, rheumatoid arthritis, thyroid disorder, coronary artery disease status post biventricular AICD and previous heart catheterization. He states he's had no previous symptoms, this has not recurred before although after looking at discharge states that he had a CVA in 2005 with no residual effects. States he was a former smoker but quit many years ago. He is no longer having any symptoms. States that he has a history of left ICA stenosis and it has been followed, however he is unsure by who. He denies any shortness of breath, chest pain, abdominal pain, nausea, vomiting, or other focal deficits. On admission he had a CT of the brain showing age-related atrophic and chronic small vessel ischemic changes without acute intracranial process seen at this time. CT a of head and neck shows estimated diameter reduction proximal left ICA of 70% and on the right 50-60%. No significant abnormality in the brain. He currently has been on aspirin and Plavix. Review of Systems 14 point review of systems was completed all pertinent positives and negatives as stated in the HPI. Past Medical History Past Medical History: CVA/TIA, Diabetes Mellitus, GERD/Reflux, Hearing Disorder / Deafness, Hyperlipidemia, Hypertension, Musculoskeletal Disorder, Pneumonia, Rheumatoid Arthritis (RA), Thyroid Disorder Additional Past Medical History / Comment(s): LOW IRON LEVELS AND FATIGUE. Hx CMP w/ BiVICD. 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 chronic back pain, History of Any Multi-Drug Resistant Organisms: None Reported Past Surgical History: AICD, Appendectomy, Back Surgery, Heart Catheterization, Joint Replacement, Tonsillectomy Additional Past Surgical History / Comment(s): Biventricular AICD placement/[employer], battery change r/t recall, Back surgery 6, colonoscopy, past hx of pain clinic procedure, cataract sx, Oral sx "to smooth down bones in mouth." 01/18/20 RT TOTAL KNEE; 02/24/20 Repair Rt knee tendon. Past Anesthesia/Blood Transfusion Reactions: No Reported Reaction Additional Past Anesthesia/Blood Transfusion Reaction / Comm: blood transfusion- no reaction; BP was high when came in for his 1st pain procedure-procedure was canceled- states no problem since. Type of Cardiac Device: AICD Device Placement Date:: 2016 Past Psychological History: No Psychological Hx Reported Smoking Status: Former smoker Past Alcohol Use History: None Reported Past Drug Use History: None Reported - Past Family History Father History Unknown: Yes Mother Family Medical History: Hyperlipidemia, Hypertension, Myocardial Infarction ([place]) Additional Family Medical History / Comment(s): . Medications and Allergies Home Medications Medication Instructions Recorded Confirmed Type Omeprazole [PriLOSEC] 20 mg PO DAILY 11/24/18 06/05/21 History Torsemide [Demadex] 10 mg PO DAILY 11/24/18 06/05/21 History Pravastatin Sodium [Pravachol] 40 mg PO HS 02/27/19 06/05/21 History predniSONE 10 mg PO Q48H 10/06/19 06/05/21 History allopurinoL [Zyloprim] 100 mg PO AC-SUPPER 10/09/19 06/05/21 History Carvedilol [Coreg] 6.25 mg PO BID 11/30/19 06/05/21 History Aspirin [Adult Low Dose Aspirin EC] 81 mg PO DAILY 03/23/20 06/05/21 History Gabapentin 300 mg PO TID 01/30/21 06/05/21 History Calcium Carbonate/Vitamin D3 1 tab PO DAILY 06/05/21 06/05/21 History [Calcium 600 mg-Vit D3 5 mcg (200 unit)] INSULIN ASPART (NovoLOG) [NovoLOG 14 unit SQ AC-TID 06/05/21 06/05/21 History (formulary)] INSULIN ASPART (NovoLOG) [NovoLOG See Protocol SQ AC-TID PRN 06/05/21 06/05/21 History (formulary)] Insulin Detemir (Levemir) [Levemir] 28 unit SQ HS 06/05/21 06/05/21 History Insulin Detemir (Levemir) [Levemir] See Protocol SQ HS PRN 06/05/21 06/05/21 History Tamsulosin HCl [Flomax] 0.4 mg PO DAILY 06/05/21 06/05/21 History oxyCODONE-APAP 5-325MG [Percocet 1 - 2 tab PO Q4-6H PRN 06/05/21 06/05/21 History 5-325 mg] predniSONE 5 mg PO Q48H 06/05/21 06/05/21 History Allergies Allergy/AdvReac Type Severity Reaction Status Date / Time amlodipine Allergy swelling Verified 06/05/21 10:54 of feet doxycycline Allergy Anaphylaxis Verified 06/05/21 10:54 Iodinated Contrast Media Allergy Anaphylaxis Verified 06/05/21 10:54 [Iodinated Contrast- Oral and IV Dye] iodine Allergy Anaphylaxis Verified 06/05/21 10:54 metronidazole [From Flagyl] Allergy Rash/Hives Verified 06/05/21 10:54 shrimp Allergy Rash/Hives Verified 06/05/21 10:54 acarbose AdvReac Abdominal Verified 06/05/21 10:54 Pain adhesive tape AdvReac SKIN PULLS Verified 06/05/21 10:54 OFF " amoxicillin trihydrate AdvReac Nausea & Verified 06/05/21 10:54 [From Augmentin] Vomiting potassium clavulanate AdvReac Nausea & Verified 06/05/21 10:54 [From Augmentin] Vomiting Surgical - Exam Vital Signs Temp Pulse Resp BP Pulse Ox 97.8 F 81 18 152/68 97 06/05/21 09:44 06/05/21 09:44 06/05/21 09:44 06/05/21 09:44 06/05/21 09:44 General appearance: The patient is alert, oriented, in no acute distress. HET: Head is normocephalic and atraumatic. Pupils are equal and reactive. Neck: Supple without lymphadenopathy. Trachea midline. No carotid bruit noted. Heart: S1 S2. Regular rate and rhythm. Lungs: Clear to auscultation. Abdomen: Soft, nontender, nondistended. Extremities: Normal skin color and turgor. No cyanosis, rash, ulceration, clubbing, or edema. Palpable bilateral radial pulses, palpable left dorsalis pedis and right posterior tibialis. Neurological: No focal deficits. Strength and sensation are grossly intact. Results - Labs 06/05/21 10:12 06/05/21 10:12 Abnormal Lab Results - Last 24 Hours (Table) 06/05/21 06/05/21 06/05/21 Range/Units 10:12 10:12 10:12 WBC 15.8 H (3.8-10.6) k/uL Neutrophils # 8.8 H (1.3-7.7) k/uL Lymphocytes # 5.0 H (1.0-4.8) k/uL Eosinophils # 0.8 H (0-0.7) k/uL Sodium 136 L (137-145) mmol/L Potassium 5.2 H (3.5-5.1) mmol/L BUN 28 H (9-20) mg/dL Creatinine 1.38 H (0.66-1.25) mg/dL Glucose 206 H (74-99) mg/dL POC Glucose (mg/dL) (75-99) mg/dL Troponin I 0.110 H* (0.000-0.034) ng/mL 06/05/21 Range/Units 10:12 WBC (3.8-10.6) k/uL Neutrophils # (1.3-7.7) k/uL Lymphocytes # (1.0-4.8) k/uL Eosinophils # (0-0.7) k/uL Sodium (137-145) mmol/L Potassium (3.5-5.1) mmol/L BUN (9-20) mg/dL Creatinine (0.66-1.25) mg/dL Glucose (74-99) mg/dL POC Glucose (mg/dL) 203 H (75-99) mg/dL Troponin I (0.000-0.034) ng/mL Diabetes panel 06/05/21 Range/Units 10:12 Sodium 136 L (137-145) mmol/L Potassium 5.2 H (3.5-5.1) mmol/L Chloride 99 (98-107) mmol/L Carbon Dioxide 29 (22-30) mmol/L BUN 28 H (9-20) mg/dL Creatinine 1.38 H (0.66-1.25) mg/dL Glucose 206 H (74-99) mg/dL Calcium 9.4 (8.4-10.2) mg/dL AST 23 (17-59) U/L ALT 13 (4-49) U/L Alkaline Phosphatase 77 (38-126) U/L Total Protein 6.5 (6.3-8.2) g/dL Albumin 3.6 (3.5-5.0) g/dL Calcium panel 06/05/21 Range/Units 10:12 Calcium 9.4 (8.4-10.2) mg/dL Albumin 3.6 (3.5-5.0) g/dL Pituitary panel 06/05/21 Range/Units 10:12 Sodium 136 L (137-145) mmol/L Potassium 5.2 H (3.5-5.1) mmol/L Chloride 99 (98-107) mmol/L Carbon Dioxide 29 (22-30) mmol/L BUN 28 H (9-20) mg/dL Creatinine 1.38 H (0.66-1.25) mg/dL Glucose 206 H (74-99) mg/dL Calcium 9.4 (8.4-10.2) mg/dL Adrenal panel 06/05/21 Range/Units 10:12 Sodium 136 L (137-145) mmol/L Potassium 5.2 H (3.5-5.1) mmol/L Chloride 99 (98-107) mmol/L Carbon Dioxide 29 (22-30) mmol/L BUN 28 H (9-20) mg/dL Creatinine 1.38 H (0.66-1.25) mg/dL Glucose 206 H (74-99) mg/dL Calcium 9.4 (8.4-10.2) mg/dL Total Bilirubin 0.7 (0.2-1.3) mg/dL AST 23 (17-59) U/L ALT 13 (4-49) U/L Alkaline Phosphatase 77 (38-126) U/L Total Protein 6.5 (6.3-8.2) g/dL Albumin 3.6 (3.5-5.0) g/dL - Imaging Comments: CT of the brain showing age-related atrophic and chronic small vessel ischemic changes without acute intracranial process seen at this time. CTA of head and neck shows estimated diameter reduction proximal left ICA of 70% and on the right 50-60%. No significant abnormality in the brain. He currently has been on aspirin and Plavix. Assessment and Plan Assessment: 1. Right upper and lower extremity weakness 2. Bilateral internal carotid artery stenosis 3. History coronary artery disease, status post AICD 4. History of CVA/TIA 5. Diabetes mellitus 6. Hyperlipidemia 7. Hypertension 8. Rheumatoid arthritis 9. Thyroid disorder Plan: 1. CTA head and neck reviewed 2. Carotid Doppler ultrasound ordered 3. Continue aspirin, Plavix, and statin 4. Cardiology consult for possible carotid endarterectomy/TCAR 5. Further recommendations to follow Thank you for this consultation and allowing us take part in the plan of care of your patient during his hospital stay The impression and plan of care has been dictated as directed. Dr. Jha I performed a history and examination of this patient, discussed the same with the dictator. I agree with the dictator's note ,documented as a scribe. Any additional findings or plans will be noted.
--- NOTE | 2021-06-05 16:18 | XR ---
EXAMINATION TYPE: XR chest 2V DATE OF EXAM: 06/05/2021 HISTORY: Shortness of breath. COMPARISON: 10/02/2019 TECHNIQUE: Single view of the chest is submitted. FINDINGS: Demonstrated are scattered senescent parenchymal change. There is no evidence for focal infiltrate. The heart is stable. Hilar and mediastinal structures are within normal limits. Degenerative changes are seen of the dorsal spine. IMPRESSION: 1. Chronic changes without evidence for acute pulmonary disease.
[2021-06-05] MEDS: ATORVASTATIN 40 MG TAB PO SCH (16:20)
[2021-06-05] MEDS: GABAPENTIN 300 MG CAP PO SCH ×2 (16:20→20:34)
[2021-06-05] MEDS: carvediloL 6.25 MG TAB PO SCH (16:21)
[2021-06-05] MEDS: allopurinoL 100 MG TAB PO SCH (16:21)
[2021-06-05 16:49] LABS: Glucose,Whole Blood 334 mg/dL (75-99)
--- NOTE | 2021-06-05 17:02 | US ---
EXAMINATION TYPE: US carotid duplex BILAT DATE OF EXAM: 06/05/2021 COMPARISON: CTA 06/05/2021 CLINICAL HISTORY: CVA. Difficult exam. EXAM MEASUREMENTS: RIGHT: Peak Systolic Velocity (PSV) cm/sec ----- Right CCA: 89.0 ----- Right ICA: 151 ----- Right ECA: 123 ICA/CCA ratio: 1.7 RIGHT: End Diastole cm/sec ----- Right CCA: 6.5 ----- Right ICA: 10.9 ----- Right ECA: 0.0 LEFT: Peak Systolic Velocity (PSV) cm/sec ----- Left CCA: 130 ----- Left ICA: 98.2 ----- Left ECA: 174 ICA/CCA ratio: 0.7 LEFT: End Diastole cm/sec ----- Left CCA: 0.0 ----- Left ICA: 0.0 ----- Left ECA: 0.0 VERTEBRALS (direction of flow): Right Vertebral: Antegrade Left Vertebral: Antegrade Rhythm: Normal Severe amount of plaque visualized bilaterally. Elevated velocities right ICA, left CCA, and left ECA IMPRESSION: There is extensive calcified plaque and measurements of the velocity are not reliable in view of the extensive shadowing. There is antegrade flow in the vertebral arteries. There is estimated more than 70% stenosis in both internal carotid arteries. There are high resistanc e waveforms and decreased diastolic flow in the internal carotid arteries. Criteria for Assigning % of Stenosis / Diameter reduction (Estimation based on the indirect measurements of the internal carotid artery velocities (ICA PSV). 1. Normal (no stenosis)=ICA PSV < 125 cm/s: ratio < 2.0: ICA EDV<40 cm/s. 2. Less than 50% stenosis=ICA PSV < 125 cm/s: ratio < 2.0: ICA EDV<40 cm/s. 3. 50 to 69% stenosis=ICA PSV of 125 to 230 cm/s: ration 2.0 ? 4.0: ICA EDV 40-100 cm/s. 4. Greater than 70% stenosis to near occlusion= ICA PSV > 230 cm/s: ratio > 4.0: ICA EDV > 100 cm/s. 5. Near occlusion= ICA PSV velocities may be low or undetectable: variable ratio and ICA EDV. 6. Total occlusion=unable to detect flow.
[2021-06-05] MEDS: INSULIN ASPART (NovoLOG) 100 UNIT/ML VIAL SQ SCH ×3 (17:29→20:33)
--- NOTE | 2021-06-05 18:38 | ECHOF ---
Referral Reason:Stroke MEASUREMENTS -------- HEIGHT: 177.8 cm WEIGHT: 90.7 kg BP: IVSd: 1.8 cm (0.6 - 1.1) LVIDd: 4.1 cm (3.9 - 5.3) LVPWd: 1.5 cm (0.6 - 1.1) EDV(Teich): 74 ml IVSs: 2.1 cm LVIDs: 2.3 cm LVPWs: 2.2 cm %IVS Thck: 18 % ESV(Teich): 18 ml EF(Teich): 76 % %FS: 44 % SV(Teich): 56 ml RVIDd: 2.2 cm (< 3.3) IVC: 19.43 mm LALs A4C: 6.5 cm LAAs A4C: 24.7 cm LAESV A-L A4C: 80 ml LAESV MOD A4C: 72 ml LALs A2C: 6.9 cm LAAs A2C: 26.1 cm LAESV A-L A2C: 84 ml LAESV MOD A2C: 77 ml LAESV(A-L): 85 ml LAESV Index (A-L): 40.56 ml/m Ao Diam: 3.8 cm (2.0 - 3.7) LA Diam: 4.3 cm (2.7 - 3.8) AV Cusp: 2.3 cm (1.5 - 2.6) EPSS: 0.9 cm MV E Valerio: 0.96 m/s MV DecT: 274 ms MV Dec Gordon: 3.5 m/s MV A Valerio: 1.05 m/s MV E/A Ratio: 0.92 MV PHT: 79 ms AV Vmax: 1.45 m/s AV maxP.39 mmHg AR Vmax: 3.59 m/s AR maxP.47 mmHg AR PHT: 1083 ms AR Dec Time: 3736 ms AR Dec Gordon: 1.0 m/s TR Vmax: 2.15 m/s TR maxP.57 mmHg RAP: 5.00 mmHg RVSP: 23.57 mmHg MV EF SLOPE: 38.63 mm/s (70 - 150) MV EXCURSION: 17.01 mm (> 18.000) FINDINGS -------- This was a technically good study. The left ventricular size is normal. There is moderate concentric left ventricular hypertrophy. O verall left ventricular systolic function is normal with, an EF between 55 - 60 %. Left ventricular fillimg pressure cannot be estimated due to paced rhythm. The right ventricle is normal in size. LA is severely dilated >40 ml/m2 The right atrial size is normal. Electronic pacemaker lead seen in the right atrial cavity. The aortic valve is trileaflet and appears structurally normal. There is mild aortic regurgitation. The mitral valve is normal. The mitral valve leaflets are mildly thickened. Mild mitral regurgita tion is present. The tricuspid valve appears structurally normal. Mild tricuspid regurgitation present. Right vent ricular systolic pressure is normal at < 35 mmHg. There is no pulmonic regurgitation present. The aortic root size is normal. Normal inferior vena cava with normal inspiratory collapse consistent with estimated right atrial pre ssure of 5 mmHg. There is no pericardial effusion. CONCLUSIONS -------- 1. The left ventricular size is normal. 2. There is moderate concentric left ventricular hypertrophy. 3. Overall left ventricular systolic function is normal with, an EF between 55 - 60 %. 4. Left ventricular fillimg pressure cannot be estimated due to paced rhythm. 5. LA is severely dilated >40 ml/m2 6. Electronic pacemaker lead seen in the right atrial cavity. 7. There is mild aortic regurgitation. 8. The mitral valve leaflets are mildly thickened. 9. Mild mitral regurgitation is present. 10. Mild tricuspid regurgitation present. 11. There is no pericardial effusion. DRUM PRINTER: Opal Conte RDCS
[2021-06-05 20:16] LABS: Glucose,Whole Blood 351 mg/dL (75-99)
[2021-06-05] MEDS: HEPARIN SODIUM,PORCINE/PF 5,000 UNIT/0.5 ML SYRINGE SQ SCH (20:33)
[2021-06-05] MEDS: INSULIN DETEMIR (LEVEMIR) 100 UNIT/ML SYR SQ SCH (20:33)
[2021-06-05] MEDS ORDERED: PRAVASTATIN SODIUM 40 MG TAB PO SCH (21:00)
[2021-06-05] MEDS: ALPRAZolam 0.25 MG TAB PO PRN (23:01)
[2021-06-06] MEDS: oxyCODONE-APAP 5-325MG 1 EACH TAB PO PRN ×2 (02:57→20:01)
[2021-06-06 05:53] LABS: Glucose,Whole Blood 240 mg/dL (75-99)
[2021-06-06] MEDS: carvediloL 6.25 MG TAB PO SCH ×2 (06:30→15:25)
[2021-06-06] MEDS: PANTOPRAZOLE 40 MG TABLET PO SCH (06:30)
[2021-06-06 07:40] LABS: Glucose,Whole Blood 244 mg/dL (75-99)
[2021-06-06 08:01] LABS: Basophils % (A) 0 %; Eosinophils % (A) 0 %; HCT 39.6 % (39.0-53.0); HGB 13.3 gm/dL (13.0-17.5); Lymphocytes # (A) 3.3 k/uL (1.0-4.8); Lymphocytes % (A) 18 %; MCHC 33.6 g/dL (31.0-37.0); MCV 92.4 fL (80.0-100.0); Mean Platelet Volume 7.5; Monocytes # (A) 0.8 k/uL (0-1.0); Monocytes % (A) 4 %; Neutrophils # (A) 13.9 k/uL (1.3-7.7); Neutrophils % (A) 76 %; Platelet Count 305 k/uL (150-450); RBC 4.28 m/uL (4.30-5.90); RDW 14.8 % (11.5-15.5); WBC 18.2 k/uL (3.8-10.6)
[2021-06-06 08:06] LABS: Albumin 3.1 g/dL (3.5-5.0); Calcium 9.1 mg/dL (8.4-10.2); Potassium 5.1 mmol/L (3.5-5.1); Total Bilirubin 0.3 mg/dL (0.2-1.3); Total Protein 5.8 g/dL (6.3-8.2)
[2021-06-06] MEDS: INSULIN ASPART (NovoLOG) 100 UNIT/ML VIAL SQ SCH ×7 (08:49→19:55)
[2021-06-06] MEDS: CLOPIDOGREL 75 MG TAB PO SCH (08:50)
[2021-06-06] MEDS: CALCIUM CARB-VIT D 500 MG-5 MCG TAB PO SCH (08:50)
[2021-06-06] MEDS: TAMSULOSIN 0.4 MG CAP.ER.24H PO SCH (08:50)
[2021-06-06] MEDS: ATORVASTATIN 40 MG TAB PO SCH (08:50)
[2021-06-06] MEDS: GABAPENTIN 300 MG CAP PO SCH ×3 (08:50→19:55)
[2021-06-06] MEDS: ASPIRIN 81 MG PO SCH (08:51)
[2021-06-06] MEDS: ASPIRIN 325 MG TAB PO SCH (08:51)
[2021-06-06] MEDS: HEPARIN SODIUM,PORCINE/PF 5,000 UNIT/0.5 ML SYRINGE SQ SCH ×2 (08:51→19:54)
[2021-06-06] MEDS ORDERED: NON FORMULARY DRUG (Omeprazole 20 MG Capsule.Dr) PO SCH (09:00)
[2021-06-06] MEDS ORDERED: predniSONE 5 MG TAB PO SCH (09:00)
--- NOTE | 2021-06-06 09:30 | HP ---
HISTORY AND PHYSICAL DATE OF SERVICE: 06/05/2021 CHIEF COMPLAINTS: Right arm numbness and weakness. HISTORY OF PRESENT ILLNESS: This 81-year-old gentleman with a past medical history of CVA, TIA, diabetes, GERD, hypertension, hyperlipidemia, history of DJD, hypothyroidism, AICD, history of appendectomy, history of back surgery, being followed by Dr. Madalyn Doss and Opal benavidez in the outpatient setting, was complaining of right arm numbness and weakness. The patient woke up with symptoms this morning and the patient is rating a nih scale of 3. The patient evaluation in the ER, the patient underwent CT of the brain, which I reviewed personally, showed age-related changes small-vessel ischemic changes. A CT angio of the head was also done, which showed left proximal ICA stenosis 70% and right 50-60%. Patient admitted for evaluation and treatment. There is no history of fever, rigors. No headache, loss of consciousness, seizures. PAST MEDICAL HISTORY: History of CVA, TIA, diabetes mellitus, GERD, hypertension, hyperlipidemia, history of DJD, history of hypothyroidism, history of rheumatoid arthritis. MEDICATIONS: Admission home medications are zyloprim, Demadex, Coreg, Prilosec, NovoLog, Levemir, Percocet, aspirin, prednisone, Flomax, calcium with vitamin D3. ALLERGIES: AMLODIPINE,CONTRAST DYES, FLAGYL, SHRIMP, POTASSIUM SOCIAL HISTORY: History of smoking. REVIEW OF SYSTEMS: ENT: Diminished vision. CARDIOVASCULAR: No angina. RESPIRATION: Mentioned earlier. GI: As mentioned. : No dysuria. NERVOUS SYSTEM: Mentioned earlier. ALLERGY: No asthma or hay fever. MUSCULOSKELETAL: As mentioned earlier. ENDOCRINE: Diabetes and hypothyroidism. HEMATOLOGY/ONCOLOGY: No history of anemia. RHEUMATOLOGY: Negative. RHEUMATOLOGY: Negative. PSYCHIATRY: As mentioned earlier. PHYSICAL EXAM: Patient is alert, oriented x2. Pulse 74, blood pressure 190/83, respiration 18, temperature 98.4, pulse ox 94% on room air. HEENT: Conjunctivae normal. Oral mucosa moist. NECK: No JVD. CARDIOVASCULAR: S1, S2, muffled. LUNGS: Respiration at the bases, no rhonchi, no crackles. ABDOMEN: Soft, nontender. No mass palpable. NERVOUS SYSTEM: As mentioned earlier. No cranial deficit appreciated. Minimal weakness, numbness of the right arm and right leg also present. Pulses are diminished. Gait not tested. SKIN: No ulcer seen. JOINTS: No active deforming arthropathy. LYMPHATICS: No lymph nodes. LAB: At this time shows WBC 10.8, hemoglobin 15.2, sodium 132, potassium 5.2, creatinine 1.38. Troponin 0.110. ASSESSMENT: 1. Numbness and weakness of the right side, possible acute CVA, acute stroke involving the left hemisphere. 2. Left carotid stenosis 70% and right carotid stenosis around 50-60%. 3. Increased WBC. 4. Hyponatremia. 5. Hyperkalemia. 6. Acute renal failure with acute tubular necrosis. 7. Chronic kidney disease, stage 2 baseline. 8. Troponin 0.110, indeterminate. 9. History of CVA, TIA. 10.Diabetes mellitus, type 2. 11.Gastroesophageal reflux disease. 12.Hypertension. 13.History of pneumonia. 14.History rheumatoid arthritis. 15.History of iron deficiency anemia. 16.History of hypothyroidism. 17.History of gout. 18.History of biventricular AICD. 19.History of nicotine dependence. RECOMMENDATION: This 81-year-old gentleman who presented with multiple complex medical issues, we will monitor the patient closely, continue the current management, antiplatelet agents. Neurology evaluation. Resume the home medications. hypertension. DVT prophylaxis. Full neurovascular workup. Cardiology consultation because of elevated troponin. Vascular surgery consultation. Overall prognosis guarded because of multiple complex medical issues. Discussed with the family at the bedside. DISHA / ANAND: [id number] / MTDD
--- NOTE | 2021-06-06 09:46 | P.PN ---
Subjective Progress Note Date: 06/06/21 Principal diagnosis: Left-sided weakness, TIA, carotid stenosis Patient is seen and examined lying in bed. He states he's had no acute changes through the night. He denies any weakness in his upper or lower extremities. Denies any other focal deficits. Denies any shortness of breath or chest pain. He underwent carotid Doppler yesterday showing approximately 70% stenosis in bilateral internal carotid arteries. Objective - Vital Signs Vital signs: Vital Signs Temp 97.7 F 06/06/21 03:18 Pulse 72 06/06/21 03:18 Resp 16 06/06/21 03:18 BP 164/88 06/06/21 03:18 Pulse Ox 94 L 06/06/21 03:18 Intake & Output 06/05/21 06/06/21 06/06/21 18:59 06:59 18:59 Intake Total 480 250 Balance 480 250 Weight 90.718 kg Intake: Oral 480 250 Other: Voiding Method Toilet # Voids 1 - Exam General appearance: The patient is alert, oriented, in no acute distress. HET: Head is normocephalic and atraumatic. Pupils are equal and reactive. Neck: Supple without lymphadenopathy. Trachea midline. Heart: S1 S2. Regular rate and rhythm. Lungs: Clear to auscultation. Abdomen: Soft, nontender, nondistended. Extremities: Normal skin color and turgor. No cyanosis, rash, ulceration, clubbing, or edema. Neurological: No focal deficits. Strength and sensation are grossly intact. - Labs CBC & Chem 7: 06/06/21 07:28 06/06/21 07:28 Labs: Abnormal Lab Results - Last 24 Hours (Table) 06/05/21 06/05/21 06/05/21 Range/Units 10:12 10:12 10:12 WBC 15.8 H (3.8-10.6) k/uL RBC (4.30-5.90) m/uL Neutrophils # 8.8 H (1.3-7.7) k/uL Lymphocytes # 5.0 H (1.0-4.8) k/uL Eosinophils # 0.8 H (0-0.7) k/uL Sodium 136 L (137-145) mmol/L Potassium 5.2 H (3.5-5.1) mmol/L BUN 28 H (9-20) mg/dL Creatinine 1.38 H (0.66-1.25) mg/dL Glucose 206 H (74-99) mg/dL POC Glucose (mg/dL) (75-99) mg/dL Troponin I 0.110 H* (0.000-0.034) ng/mL Total Protein (6.3-8.2) g/dL Albumin (3.5-5.0) g/dL 06/05/21 06/05/21 06/05/21 Range/Units 10:12 16:46 20:14 WBC (3.8-10.6) k/uL RBC (4.30-5.90) m/uL Neutrophils # (1.3-7.7) k/uL Lymphocytes # (1.0-4.8) k/uL Eosinophils # (0-0.7) k/uL Sodium (137-145) mmol/L Potassium (3.5-5.1) mmol/L BUN (9-20) mg/dL Creatinine (0.66-1.25) mg/dL Glucose (74-99) mg/dL POC Glucose (mg/dL) 203 H 334 H 351 H (75-99) mg/dL Troponin I (0.000-0.034) ng/mL Total Protein (6.3-8.2) g/dL Albumin (3.5-5.0) g/dL 06/06/21 06/06/21 06/06/21 Range/Units 05:52 07:28 07:28 WBC 18.2 H (3.8-10.6) k/uL RBC 4.28 L (4.30-5.90) m/uL Neutrophils # 13.9 H (1.3-7.7) k/uL Lymphocytes # (1.0-4.8) k/uL Eosinophils # (0-0.7) k/uL Sodium 134 L (137-145) mmol/L Potassium (3.5-5.1) mmol/L BUN 31 H (9-20) mg/dL Creatinine 1.44 H (0.66-1.25) mg/dL Glucose 265 H (74-99) mg/dL POC Glucose (mg/dL) 240 H (75-99) mg/dL Troponin I (0.000-0.034) ng/mL Total Protein 5.8 L (6.3-8.2) g/dL Albumin 3.1 L (3.5-5.0) g/dL 06/06/21 Range/Units 07:36 WBC (3.8-10.6) k/uL RBC (4.30-5.90) m/uL Neutrophils # (1.3-7.7) k/uL Lymphocytes # (1.0-4.8) k/uL Eosinophils # (0-0.7) k/uL Sodium (137-145) mmol/L Potassium (3.5-5.1) mmol/L BUN (9-20) mg/dL Creatinine (0.66-1.25) mg/dL Glucose (74-99) mg/dL POC Glucose (mg/dL) 244 H (75-99) mg/dL Troponin I (0.000-0.034) ng/mL Total Protein (6.3-8.2) g/dL Albumin (3.5-5.0) g/dL Assessment and Plan Assessment: 1. Symptomatic right carotid stenosis 2. Left upper and lower extremity weakness, likely TIA 3. Bilateral internal carotid artery stenosis 4. History coronary artery disease, status post AICD 5. History of CVA/TIA 6. Diabetes mellitus 7. Hyperlipidemia 8. Hypertension 9. Rheumatoid arthritis 10. Thyroid disorder Plan: 1. CTA head and neck reviewed 2. Carotid Doppler ultrasound ordered and reviewed 3. Continue aspirin, Plavix, and statin 4. Cardiology consult for possible carotid endarterectomy/TCAR 5. Discussion had with patient and regarding possible surgical intervention including risks and benefits of both cartotid endartectomy and whittaker s Carotid artery revascularization 6. Patient may be discharged home from a vascular surgical standpoint with outpatient follow up with Dr. Gooden and will plan to schedule patient next week for TCAR Thank you for this consultation and allowing us take part in the plan of care of your patient during his hospital stay The impression and plan of care has been dictated as directed. Dr. Blanca I performed a history and examination of this patient, discussed the same with the dictator. I agree with the dictator's note ,documented as a scribe. Any additional findings or plans will be noted.
--- NOTE | 2021-06-06 11:21 | P.CRDCN ---
History of Present Illness Consult date: 06/06/21 History of present illness: HISTORY OF PRESENT ILLNESS: This is a 81-year-old male with a past medical history significant for mild nonobstructive coronary artery disease, carotid stenosis, previous CVA, hypertension, hyperlipidemia, and diabetes. Patient follows in the office with Dr. Narvaez. We have been asked to see the patient in consultation for cardiac clearance. Patient examined at the bedside. Patient presented to the hospital secondary to right sided weakness. Patient denied having any vision or speech difficulty. At the time of examination, the patient states his right-sided weakness has resolved. Patient denies any chest pain or pressure. He denies shortness of breath. Patient is able to lay flat in bed without dyspnea. Patie nt states he is able to ambulate in his room without shortness of breath. EKG reveals biventricular paced rhythm. Chest xray chronic changes without evidence for acute pulmonary disease Laboratory data: WBC 18.2. Hemoglobin 13.3. Platelet count 305. Sodium 134. Potassium 5.1. BUN 31. Creatinine 1.44. Current home cardiac medications include Demadex 10 mg daily, carvedilol 6.25 mg twice a day, pravastatin 40 mg daily, aspirin 81 mg daily Most recent echocardiogram obtained in March 2020 revealed ejection fraction 55%. Moderate aortic regurgitation. [id number] mitral regurgitation. Mild tricuspid regurgitation repeat echocardiogram performed this admission revealed ejection fraction 55- 60%, atrophic pacemaker lead seen in the right atrial cavity. Mild tricuspid regurgitation. Patient underwent a low level treadmill exercise stress test in 2016 which was inconclusive secondary to baseline EKG abnormalities due to paced rhythm. carotid Doppler: Estimated more than 70% stenosis in both internal carotid arteries. CT angio head and neck: Estimated diameter reduction proximal left internal carotid artery of 70% and right 50-60% Patient underwent cardiac catheterization in March 2017 revealing mild nonobstructive coronary artery disease. Normal left ventricular end-diastolic pressure. CT of brain: Age related atrophic and chronic small vessel ischemic changes without acute intracranial process REVIEW OF SYSTEMS: At the time of my exam: CONSTITUTIONAL: Denies fever or chills. HEENT: Denies blurred vision, vision changes, or eye pain. Denies hemoptysis CARDIOVASCULAR: Denies chest pain. Denies orthopnea. Denies PND. Denies palpitations RESPIRATORY: Denies shortness of breath. GASTROINTESTINAL: Denies abdominal pain. Denies nausea or vomiting. HEMATOLOGIC: Denies bleeding disorders. GENITOURINARY: Denies any blood in urine. SKIN: Denies pruitis. Denies rash. PHYSICAL EXAM: VITAL SIGNS: Reviewed. GENERAL: Well-developed in no acute distress. HEENT: Head is normocephalic. Pupils are equal, round. Sclerae anicteric. Mucous membranes of the mouth are moist. Neck supple. No JVD or thyromegaly LUNGS: Respirations even and unlabored. Lungs essentially clear to auscultation bilaterally. HEART: Regular rate and rhythm. S1 and S2 heard. Soft systolic murmur. ABDOMEN: Soft. Nondistended. Nontender. EXTREMITIES: Normal range of motion. No clubbing or cyanosis. Peripheral pulses intact. No lower extremity edema NEUROLOGIC: Awake and alert. Oriented x 3. ASSESSMENT: Acute CVA/TIA Mild nonobstructive coronary artery disease Previous CVA Hypertension Hyperlipidemia Diabetes Valvular heart disease PLAN: Continue current cardiac medications Patient has no complaints of angina and is not clinically in heart failure There are no absolute contraindications to undergo intervention with vascular surgery for carotid stenosis Nurse practitioner note has been reviewed by physician. Signing provider agrees with the documented findings, assessment, and plan of care. Past Medical History Past Medical History: CVA/TIA, Diabetes Mellitus, GERD/Reflux, Hearing Disorder / Deafness, Hyperlipidemia, Hypertension, Musculoskeletal Disorder, Pneumonia, Rheumatoid Arthritis (RA), Thyroid Disorder Additional Past Medical History / Comment(s): LOW IRON LEVELS AND FATIGUE. Hx CMP w/ BiVICD. Interstitial lung disease/rheumatoid lung, gout, CVA in 2006- no residual effects, hiatal hernia; bronchitis, states "had [place] virus, possibly lymes disease". chronic back pain, History of Any Multi-Drug Resistant Organisms: None Reported Past Surgical History: AICD, Appendectomy, Back Surgery, Heart Catheterization, Joint Replacement, Tonsillectomy Additional Past Surgical History / Comment(s): Biventricular AICD placement/[employer], battery change r/t recall, Back surgery 6, colonoscopy, past hx of pain clinic procedure, cataract sx, Oral sx "to smooth down bones in mouth." 01/18/20 RT TOTAL KNEE; 02/24/20 Repair Rt knee tendon. Past Anesthesia/Blood Transfusion Reactions: No Reported Reaction Additional Past Anesthesia/Blood Transfusion Reaction / Comment(s): blood transfusion-no reaction; BP was high when came in for his 1st pain procedure- procedure was canceled- states no problem since. Type of Cardiac Device: AICD Device Placement Date:: 2016 Past Psychological History: No Psychological Hx Reported Smoking Status: Former smoker Past Alcohol Use History: None Reported Past Drug Use History: None Reported - Past Family History Father History Unknown: Yes Mother Family Medical History: Hyperlipidemia, Hypertension, Myocardial Infarction ([place]) Additional Family Medical History / Comment(s): . Medications and Allergies Home Medications Medication Instructions Recorded Confirmed Type Omeprazole [PriLOSEC] 20 mg PO DAILY 11/24/18 06/05/21 History Torsemide [Demadex] 10 mg PO DAILY 11/24/18 06/05/21 History Pravastatin Sodium [Pravachol] 40 mg PO HS 02/27/19 06/05/21 History predniSONE 10 mg PO Q48H 10/06/19 06/05/21 History allopurinoL [Zyloprim] 100 mg PO AC-SUPPER 10/09/19 06/05/21 History Carvedilol [Coreg] 6.25 mg PO BID 11/30/19 06/05/21 History Aspirin [Adult Low Dose Aspirin EC] 81 mg PO DAILY 03/23/20 06/05/21 History Gabapentin 300 mg PO TID 01/30/21 06/05/21 History Calcium Carbonate/Vitamin D3 1 tab PO DAILY 06/05/21 06/05/21 History [Calcium 600 mg-Vit D3 5 mcg (200 unit)] INSULIN ASPART (NovoLOG) [NovoLOG 14 unit SQ AC-TID 06/05/21 06/05/21 History (formulary)] INSULIN ASPART (NovoLOG) [NovoLOG See Protocol SQ AC-TID PRN 06/05/21 06/05/21 History (formulary)] Insulin Detemir (Levemir) [Levemir] 28 unit SQ HS 06/05/21 06/05/21 History Insulin Detemir (Levemir) [Levemir] See Protocol SQ HS PRN 06/05/21 06/05/21 History Tamsulosin HCl [Flomax] 0.4 mg PO DAILY 06/05/21 06/05/21 History oxyCODONE-APAP 5-325MG [Percocet 1 - 2 tab PO Q4-6H PRN 06/05/21 06/05/21 History 5-325 mg] predniSONE 5 mg PO Q48H 06/05/21 06/05/21 History Allergies Allergy/AdvReac Type Severity Reaction Status Date / Time amlodipine Allergy swelling Verified 06/05/21 10:54 of feet doxycycline Allergy Anaphylaxis Verified 06/05/21 10:54 Iodinated Contrast Media Allergy Anaphylaxis Verified 06/05/21 10:54 [Iodinated Contrast- Oral and IV Dye] iodine Allergy Anaphylaxis Verified 06/05/21 10:54 metronidazole [From Flagyl] Allergy Rash/Hives Verified 06/05/21 10:54 shrimp Allergy Rash/Hives Verified 06/05/21 10:54 acarbose AdvReac Abdominal Verified 06/05/21 10:54 Pain adhesive tape AdvReac SKIN PULLS Verified 06/05/21 10:54 OFF " amoxicillin trihydrate AdvReac Nausea & Verified 06/05/21 10:54 [From Augmentin] Vomiting potassium clavulanate AdvReac Nausea & Verified 06/05/21 10:54 [From Augmentin] Vomiting Physical Exam Vitals: Vital Signs Temp Pulse Pulse Resp BP BP Pulse Ox 06/06/21 03:18 97.7 F 72 16 164/88 94 L 06/06/21 00:00 98.6 F 82 16 158/70 93 L 06/05/21 20:00 97.7 F 83 18 132/69 94 L 06/05/21 17:58 96 06/05/21 15:40 98.4 F 74 18 194/86 94 L 06/05/21 15:21 98 F 72 16 198/84 94 L 06/05/21 14:00 74 16 06/05/21 11:16 60 16 179/77 98 06/05/21 10:02 71 16 174/68 97 06/05/21 10:00 70 16 162/65 96 06/05/21 09:44 97.8 F 81 18 152/68 97 Intake and Output 06/05/21 06/06/21 06/06/21 22:59 06:59 14:59 Intake Total 240 240 Balance 240 240 Intake: Oral 240 240 Other: Voiding Method Toilet Toilet # Voids 1 1 Results 06/06/21 07:28 06/06/21 07:28 Cardiac Enzymes 06/05/21 06/05/21 06/06/21 Range/Units 10:12 10:12 07:28 AST 23 18 (17-59) U/L Troponin I 0.110 H* (0.000-0.034) ng/mL Coagulation 06/05/21 Range/Units 10:12 PT 9.5 (9.0-12.0) sec APTT 22.7 (22.0-30.0) sec CBC 06/05/21 06/06/21 Range/Units 10: 07:28 WBC 15.8 H 18.2 H (3.8-10.6) k/uL RBC 5.07 4.28 L (4.30-5.90) m/uL Hgb 15.2 13.3 (13.0-17.5) gm/dL Hct 47.5 39.6 (39.0-53.0) % Plt Count 340 305 (150-450) k/uL Comprehensive Metabolic Panel 06/05/21 06/06/21 Range/Units 10: 07:28 Sodium 136 L 134 L (137-145) mmol/L Potassium 5.2 H 5.1 (3.5-5.1) mmol/L Chloride 99 102 (98-107) mmol/L Carbon Dioxide 29 26 (22-30) mmol/L BUN 28 H 31 H (9-20) mg/dL Creatinine 1.38 H 1.44 H (0.66-1.25) mg/dL Glucose 206 H 265 H (74-99) mg/dL Calcium 9.4 9.1 (8.4-10.2) mg/dL AST 23 18 (17-59) U/L ALT 13 13 (4-49) U/L Alkaline Phosphatase 77 70 (38-126) U/L Total Protein 6.5 5.8 L (6.3-8.2) g/dL Albumin 3.6 3.1 L (3.5-5.0) g/dL Current Medications Generic Name Dose Route Start Last Admin Trade Name Freq PRN Reason Stop Dose Admin Allopurinol 100 mg 06/05/21 17:30 06/05/21 16:21 Allopurinol 100 Mg Tab PO 100 mg AC-SUPPER PATTI Administration Alprazolam 0.25 mg 06/05/21 15:12 06/05/21 23:01 Alprazolam 0.25 Mg Tab PO 0.25 mg TID PRN Administration Anxiety Aspirin 325 mg 06/06/21 09:00 Aspirin 325 Mg Tab PO DAILY PATTI Aspirin 81 mg 06/06/21 09:00 Aspirin 81 Mg PO DAILY PATTI Atorvastatin Calcium 40 mg 06/05/21 15:30 06/05/21 16:20 Atorvastatin 40 Mg Tab PO 40 mg DAILY PATTI Administration Calcium Carbonate 1 each 06/06/21 09:00 Calcium Carb-Vit D 500 Mg-5 Mcg Tab PO DAILY PATTI Carvedilol 6.25 mg 06/05/21 17:30 06/06/21 06:30 Carvedilol 6.25 Mg Tab PO 6.25 mg AC-BID PATTI Administration Clopidogrel Bisulfate 75 mg 06/05/21 14:30 06/05/21 15:03 Clopidogrel 75 Mg Tab PO 75 mg DAILY PATTI Administration Gabapentin 300 mg 06/05/21 16:00 06/05/21 20:34 Gabapentin 300 Mg Cap PO 300 mg TID PATTI Administration Heparin Sodium (Porcine) 5,000 unit 06/05/21 21:00 06/05/21 20:33 Heparin Sodium,Porcine/Pf 5,000 Unit/0.5 Ml Syringe SQ 5,000 unit Q12HR PATTI Administration Sodium Chloride 1,000 mls @ 50 mls/hr 06/05/21 12:15 06/05/21 20:35 Saline 0.9% IV 50 mls/hr .Q20H PATTI Administration Insulin Aspart 14 unit 06/05/21 17:30 06/05/21 17:29 Insulin Aspart (Novolog) 100 Unit/Ml Vial SQ 14 unit AC-TID PATTI Administration Insulin Aspart 0 unit 06/05/21 17:30 06/05/21 20:33 Insulin Aspart (Novolog) 100 Unit/Ml Vial SQ 6 unit ACHS PATTI Administration Protocol Insulin Detemir 28 unit 06/05/21 21:00 06/05/21 20:33 Insulin Detemir (Levemir) 100 Unit/Ml Syr SQ 28 unit HS PATTI Administration Oxycodone/Acetaminophen 1 each 06/05/21 12:22 06/06/21 02:57 Oxycodone-Apap 5-325mg 1 Each Tab PO 1 each Q4H PRN Administration Pain Pantoprazole Sodium 40 mg 06/06/21 07:30 06/06/21 06:30 Pantoprazole 40 Mg Tablet PO 40 mg AC-BRKFST PATTI Administration Prednisone 5 mg 06/06/21 09:00 Prednisone 5 Mg Tab PO Q48H PATTI Prednisone 10 mg 06/07/21 09:00 Prednisone 10 Mg Tab PO Q48H PATTI Tamsulosin HCl 0.4 mg 06/06/21 09:00 Tamsulosin 0.4 Mg Cap.Er.24h PO DAILY PATTI Intake and Output 06/05/21 06/06/21 06/06/21 22:59 06:59 14:59 Intake Total 240 240 Balance 240 240 Intake: Oral 240 240 Other: Voiding Method Toilet Toilet # Voids 1 1 06/06/21 07:28 06/06/21 07:28
[2021-06-06 11:54] LABS: Glucose,Whole Blood 177 mg/dL (75-99)
--- NOTE | 2021-06-06 15:01 | P.PN ---
Subjective Progress Note Date: 06/06/21 Patient was seen for a follow-up. Patient states all symptoms have resolved. No deficits. Telemetry showing dual-paced, V-paced rhythm, PVCs and couplets. Objective - Vital Signs Vital signs: Vital Signs Temp 97.7 F 06/06/21 03:18 Pulse 83 06/06/21 12:00 Resp 16 06/06/21 12:00 BP 149/72 06/06/21 12:00 Pulse Ox 98 06/06/21 12:00 Intake & Output 06/05/21 06/06/21 06/06/21 18:59 06:59 18:59 Intake Total 480 430 Balance 480 430 Weight 90.718 kg Intake: Oral 480 430 Other: Voiding Method Toilet Toilet # Voids 1 1 - Exam Patient is an elderly male, very pleasant, in no acute distress. Patient is alert awake oriented to time place and person. Speech and language functions are normal. Attention, concentration and fund of knowledge is adequate. On cranial examination, pupils are round and reacting to light, visual ramirez are full on confrontation, extraocular muscles are intact with no nystagmus. Face is symmetric, tongue protrudes to the midline. Palatal elevation and sensation normal, hearing and shoulder shrug normal, facial sensation normal. Shoulder shrug normal. On muscle strength testing, there is no pronator drift and the strength is normal in arms and legs distally and proximally. Deep tendon reflexes are symmetric and plantars downgoing. Sensory to touch is equal with no neglect. Cerebellar function showed no ataxia for [id number] testing. No dysdiadochokinesia. Tone and bulk of muscles normal. Gait normal. On general examination, there is no carotid bruit or murmur, S1-S2 audible. Abdomen is soft nontender. Chest is clear. Peripheral pulses are present. No edema. - Labs CBC & Chem 7: 06/06/21 07:28 06/06/21 07:28 Labs: Abnormal Lab Results - Last 24 Hours (Table) 06/05/21 06/05/21 06/06/21 Range/Units 16:46 20:14 05:52 WBC (3.8-10.6) k/uL RBC (4.30-5.90) m/uL Neutrophils # (1.3-7.7) k/uL Sodium (137-145) mmol/L BUN (9-20) mg/dL Creatinine (0.66-1.25) mg/dL Glucose (74-99) mg/dL POC Glucose (mg/dL) 334 H 351 H 240 H (75-99) mg/dL Total Protein (6.3-8.2) g/dL Albumin (3.5-5.0) g/dL 06/06/21 06/06/21 06/06/21 Range/Units 07:28 07:28 07:36 WBC 18.2 H (3.8-10.6) k/uL RBC 4.28 L (4.30-5.90) m/uL Neutrophils # 13.9 H (1.3-7.7) k/uL Sodium 134 L (137-145) mmol/L BUN 31 H (9-20) mg/dL Creatinine 1.44 H (0.66-1.25) mg/dL Glucose 265 H (74-99) mg/dL POC Glucose (mg/dL) 244 H (75-99) mg/dL Total Protein 5.8 L (6.3-8.2) g/dL Albumin 3.1 L (3.5-5.0) g/dL 06/06/21 Range/Units 11:52 WBC (3.8-10.6) k/uL RBC (4.30-5.90) m/uL Neutrophils # (1.3-7.7) k/uL Sodium (137-145) mmol/L BUN (9-20) mg/dL Creatinine (0.66-1.25) mg/dL Glucose (74-99) mg/dL POC Glucose (mg/dL) 177 H (75-99) mg/dL Total Protein (6.3-8.2) g/dL Albumin (3.5-5.0) g/dL Assessment and Plan Assessment: * Probable TIA manifesting with right hemiparesis mainly involving the right arm and leg. All neuro deficits has now resolved. * Diabetes * Hypertension * Hyperlipidemia * Bilateral ICA stenosis, left side 70% (symptomatic), whereas moderate 50-60% right side. * Pacemaker placement. * X tobacco use Plan: * Patient probably has stroke/TIA. Patient's neurological symptoms have much improved, with mild residual right-sided numbness involving arm and leg. * Patient was on aspirin 81 mg. We will add Plavix 75 mg to the regimen. * Vascular surgery seen the patient, recommending revascularization surgery as an outpatient. * Patient has bilateral ICA stenosis. Suggest vascular surgical consultation. * 2-D echo with bubble study revealed normal left ventricular size. Moderate concentric LVH. EF is between 55-60%. Left atrium is severely dilated. Electronic pacemaker lead seen in the right atrial cavity. Mild ER. * Fasting lipid panel with cholesterol 154, LDL 59.4, HDL 56 and triglycerides 193. Continue Lipitor 40 mg. * Hemoglobin A1c 6.6 on 11/16/2020. * Telemetry monitoring revealed paced rhythm, no evidence of A. fib. * Patient cannot have MRI due to pacemaker. * Neurologically clear for discharge.
[2021-06-06] MEDS: allopurinoL 100 MG TAB PO SCH (15:25)
[2021-06-06 15:42] LABS: Chol/HDL Ratio 3.76; LDL Cholesterol,Calculated 78.4 mg/dL (0.0-131.0); VLDL Calculation 37.6 mg/dL (5.00-40.00)
[2021-06-06 16:31] LABS: Glucose,Whole Blood 329 mg/dL (75-99)
--- NOTE | 2021-06-06 16:49 | PN ---
PROGRESS NOTE DATE OF SERVICE: 06/06/2021 This 81-year-old gentleman admitted with right arm weakness, numbness had features of acute stroke. The patient also had carotid stenosis. Vascular surgery is following the patient closely. No chest pain. No palpitations. No fever. A 2D echo with Doppler was ordered by Cardiology, shows ejection fraction about 50-60 percent, severely dilated LA, mild aortic regurgitation, mild mitral regurgitation and mild tricuspid regurgitation. No chest pain. No palpitations. No fever. PHYSICAL EXAMINATION: Alert and oriented x2. Pulse 87. Blood pressure 154/76, respirations 16, temperature 97.7, pulse ox 99% on room air. HEENT: Conjunctivae normal. NECK: NO JVD. CARDIOVASCULAR: S1, S2 muffled. RESPIRATORY: Breath sounds diminished in the bases. A few scattered rhonchi. ABDOMEN: Soft, nontender. NERVOUS SYSTEM: Mild diffuse weakness. LABS: WBC 8.2 and creatinine is 1.44. ASSESSMENT: 1. Numbness and weakness of the right leg possible acute cerebrovascular accident and acute stroke involving the left hemisphere. 2. Left carotid artery stenosis 70%, right carotid artery stenosis, 50 to 60%. 3. Troponin 0.113 indeterminate. 4. Hyponatremia. 5. Hyperkalemia. 6. Acute renal failure with acute tubular necrosis. 7. Chronic kidney stage 2 baseline. 8. History of cerebrovascular accident, transient ischemic attack. 9. Diabetes mellitus type 2. 10.History of gastroesophageal reflux disease. 11.Hypertension. 12.History of pneumonia. 13.History of rheumatoid arthritis. 14.History of iron deficiency anemia. 15.History of hypothyroidism. 16.History of gout. 17.History of interventricular AICD. 18.History of nicotine dependence. 19.Hyponatremia. 20.Increased WBC. RECOMMENDATIONS AND DISCUSSION: Recommend to continue current medications, management and symptomatic treatment. Otherwise, at this time I recommend continue with antiplatelet agents. Continue with Lipitor. Closely follow with Vascular Surgery. Monitor blood sugars closely. I would also recommend UA on a stat basis. Otherwise guarded prognosis because of multiple complex medical issues. Further recommendations to follow. MMODL / IJN: [id number] /
[2021-06-06 19:42] LABS: Glucose,Whole Blood 173 mg/dL (75-99)
[2021-06-06 20:27] LABS: Appearance,Urine Clear (Clear); Bilirubin,Urine Negative (Negative); Blood,Urine Negative (Negative); Color,Urine Light Yellow; Glucose,Urine (UA) 1+ (Negative); Ketones,Urine Negative (Negative); Leukocyte Esterase,Urine Negative (Negative); Nitrite,Urine Negative (Negative); Protein,Urine Negative (Negative); Specific Gravity,Urine 1.016 (1.001-1.035); Urobilinogen,Urine <2.0 mg/dL (<2.0)
[2021-06-06] MEDS: INSULIN DETEMIR (LEVEMIR) 100 UNIT/ML SYR SQ SCH (20:39)
[2021-06-06] MEDS: ALPRAZolam 0.25 MG TAB PO PRN (23:10)
[2021-06-06 23:57] VITALS: PULSE 60; RESP 16
[2021-06-07] MEDS: SODIUM CHLORIDE 0.9% 1,000 ML IV SCH (03:14)
[2021-06-07 03:31] VITALS: TEMP 98.4
[2021-06-07] MEDS: carvediloL 6.25 MG TAB PO SCH (06:27)
[2021-06-07] MEDS: PANTOPRAZOLE 40 MG TABLET PO SCH (06:27)
[2021-06-07] MEDS: oxyCODONE-APAP 5-325MG 1 EACH TAB PO PRN (06:40)
[2021-06-07 07:26] LABS: Glucose,Whole Blood 102 mg/dL (75-99)
[2021-06-07] MEDS: ASPIRIN 325 MG TAB PO SCH (08:01)
[2021-06-07 08:08] LABS: Basophils # (A) 0.1 k/uL (0-0.2); Basophils % (A) 0 %; Eosinophils # (A) 0.3 k/uL (0-0.7); Eosinophils % (A) 2 %; HCT 40.3 % (39.0-53.0); HGB 13.1 gm/dL (13.0-17.5); Lymphocytes # (A) 4.7 k/uL (1.0-4.8); Lymphocytes % (A) 34 %; MCH 30.4 pg (25.0-35.0); MCHC 32.5 g/dL (31.0-37.0); MCV 93.5 fL (80.0-100.0); Mean Platelet Volume 7.8; Monocytes # (A) 0.6 k/uL (0-1.0); Monocytes % (A) 4 %; Neutrophils % (A) 57 %; Platelet Count 277 k/uL (150-450); RBC 4.31 m/uL (4.30-5.90); RDW 15.5 % (11.5-15.5)
[2021-06-07 08:14] LABS: Calcium 9.3 mg/dL (8.4-10.2)
[2021-06-07] MEDS: CLOPIDOGREL 75 MG TAB PO SCH (08:38)
[2021-06-07] MEDS: ASPIRIN 81 MG PO SCH (08:38)
[2021-06-07] MEDS: INSULIN ASPART (NovoLOG) 100 UNIT/ML VIAL SQ SCH ×2 (08:38)
[2021-06-07] MEDS: CALCIUM CARB-VIT D 500 MG-5 MCG TAB PO SCH (08:38)
[2021-06-07] MEDS: ATORVASTATIN 40 MG TAB PO SCH (08:38)
[2021-06-07] MEDS: GABAPENTIN 300 MG CAP PO SCH (08:39)
[2021-06-07] MEDS: HEPARIN SODIUM,PORCINE/PF 5,000 UNIT/0.5 ML SYRINGE SQ SCH (08:39)
[2021-06-07] MEDS: TAMSULOSIN 0.4 MG CAP.ER.24H PO SCH (08:39)
[2021-06-07] MEDS ORDERED: predniSONE 10 MG TAB PO SCH (09:00)
[2021-06-07 10:12] VITALS: BP 189/75
--- NOTE | 2021-06-07 11:58 | P.PN ---
Subjective Progress Note Date: 06/07/21 HISTORY OF PRESENT ILLNESS: This is a 81-year-old male with a past medical history significant for mild nonobstructive coronary artery disease, carotid stenosis, previous CVA, hypert ension, hyperlipidemia, and diabetes. Patient follows in the office with Dr. Narvaez. We have been asked to see the patient in consultation for cardiac clearance. Patient examined at the bedside. Patient presented to the hospital secondary to right sided weakness. Patient denied having any vision or speech difficulty. At the time of examination, the patient states his right-sided weakness has resolved. Patient denies any chest pain or pressure. He denies shortness of breath. Patient is able to lay flat in bed without dyspnea. Patient states he is able to ambulate in his room without shortness of breath. EKG reveals biventricular paced rhythm. Chest xray chronic changes without evidence for acute pulmonary disease Laboratory data: WBC 18.2. Hemoglobin 13.3. Platelet count 305. Sodium 134. Potassium 5.1. BUN 31. Creatinine 1.44. Current home cardiac medications include Demadex 10 mg daily, carvedilol 6.25 mg twice a day, pravastatin 40 mg daily, aspirin 81 mg daily Most recent echocardiogram obtained in March 2020 revealed ejection fraction 55%. Moderate aortic regurgitation. [id number] mitral regurgitation. Mild tricuspid regurgitation repeat echocardiogram performed this admission revealed ejection fraction 55- 60%, atrophic pacemaker lead seen in the right atrial cavity. Mild tricuspid regurgitation. Patient underwent a low level treadmill exercise stress test in 2016 which was inconclusive secondary to baseline EKG abnormalities due to paced rhythm. carotid Doppler: Estimated more than 70% stenosis in both internal carotid arteries. CT angio head and neck: Estimated diameter reduction proximal left internal carotid artery of 70% and right 50-60% Patient underwent cardiac catheterization in March 2017 revealing mild nonobstructive coronary artery disease. Normal left ventricular end-diastolic pressure. CT of brain: Age related atrophic and chronic small vessel ischemic changes without acute intracranial process 06/07/2021 Patient examined this morning at the bedside. Patient denies chest pain or pressure. He denies shortness of breath. Vital signs stable. Echocardiogram completed revealed ejection fraction 55-60%. Mild aortic regurgitation. Mild mitral regurgitation. Mild tricuspid regurgitation. PHYSICAL EXAM: VITAL SIGNS: Reviewed. GENERAL: Well-developed in no acute distress. HEENT: Head is normocephalic. Pupils are equal, round. Sclerae anicteric. Mucous membranes of the mouth are moist. Neck supple. No JVD or thyromegaly LUNGS: Respirations even and unlabored. Lungs essentially clear to auscultation bilaterally. HEART: Regular rate and rhythm. S1 and S2 heard. Soft systolic murmur. ABDOMEN: Soft. Nondistended. Nontender. EXTREMITIES: Normal range of motion. No clubbing or cyanosis. Peripheral pulses intact. No lower extremity edema NEUROLOGIC: Awake and alert. Oriented x 3. ASSESSMENT: Acute CVA/TIA Mild nonobstructive coronary artery disease Previous CVA Hypertension Hyperlipidemia Diabetes Valvular heart disease PLAN: Continue current cardiac medications Patient has no complaints of angina and is not clinically in heart failure There are no absolute contraindications to undergo intervention with vascular surgery for carotid stenosis Plan is for patient to be discharged home today and will be brought back next week for vascular intervention We will sign off. Please reconsult if needed. Nurse practitioner note has been reviewed by physician. Signing provider agrees with the documented findings, assessment, and plan of care. Objective - Vital Signs Vital signs: Vital Signs Temp 98.4 F 06/07/21 03:29 Pulse 60 06/07/21 08:00 Resp 16 06/07/21 08:00 BP 189/75 06/07/21 08:00 Pulse Ox 97 06/07/21 08:00 Intake & Output 06/06/21 06/07/21 06/07/21 18:59 06:59 18:59 Intake Total 670 480 240 Output Total 300 200 Balance 370 280 240 Weight 86.5 kg Intake: Oral 670 480 240 Output: Urine 300 200 Other: Voiding Method Toilet Toilet # Voids 1 1 - Labs CBC & Chem 7: 06/07/21 07:27 06/07/21 07:27 Labs: Abnormal Lab Results - Last 24 Hours (Table) 06/06/21 06/06/21 06/06/21 Range/Units 07:28 16:29 19:41 WBC (3.8-10.6) k/uL Neutrophils # (1.3-7.7) k/uL BUN (9-20) mg/dL Creatinine (0.66-1.25) mg/dL POC Glucose (mg/dL) 329 H 173 H (75-99) mg/dL Triglycerides 188.0 H (0.0-149.0) mg/dL Urine Glucose (UA) (Negative) 06/06/21 06/07/21 06/07/21 Range/Units 20:14 07:25 07:27 WBC 14.0 H (3.8-10.6) k/uL Neutrophils # 8.0 H (1.3-7.7) k/uL BUN (9-20) mg/dL Creatinine (0.66-1.25) mg/dL POC Glucose (mg/dL) 102 H (75-99) mg/dL Triglycerides (0.0-149.0) mg/dL Urine Glucose (UA) 1+ H (Negative) 06/07/21 Range/Units 07:27 WBC (3.8-10.6) k/uL Neutrophils # (1.3-7.7) k/uL BUN 33 H (9-20) mg/dL Creatinine 1.51 H (0.66-1.25) mg/dL POC Glucose (mg/dL) (75-99) mg/dL Triglycerides (0.0-149.0) mg/dL Urine Glucose (UA) (Negative)
[2021-06-07 12:10] LABS: Glucose,Whole Blood 110 mg/dL (75-99)
--- NOTE | 2021-06-07 12:40 | P.PN ---
Subjective Progress Note Date: 06/07/21 Patient was seen for a follow-up. Patient states all symptoms have resolved. No deficits. Patient is laying comfortably in the bed. Denies headache. Telemetry showing dual-paced, V-paced rhythm, PVCs and couplets. Objective - Vital Signs Vital signs: Vital Signs Temp 98.4 F 06/07/21 03:29 Pulse 60 06/07/21 08:00 Resp 16 06/07/21 08:00 BP 189/75 06/07/21 08:00 Pulse Ox 97 06/07/21 08:00 Intake & Output 06/06/21 06/07/21 06/07/21 18:59 06:59 18:59 Intake Total 670 480 240 Output Total 300 200 Balance 370 280 240 Weight 86.5 kg Intake: Oral 670 480 240 Output: Urine 300 200 Other: Voiding Method Toilet Toilet # Voids 1 1 - Exam Patient is an elderly male, very pleasant, in no acute distress. Patient is alert awake oriented to time place and person. Speech and language functions are normal. Attention, concentration and fund of knowledge is adequate. On cranial examination, pupils are round and reacting to light, visual ramirez are full on confrontation, extraocular muscles are intact with no nystagmus. Face is symmetric, tongue protrudes to the midline. Palatal elevation and sensation normal, hearing and shoulder shrug normal, facial sensation normal. Shoulder shrug normal. On muscle strength testing, there is no pronator drift and the strength is normal in arms and legs distally and proximally. Deep tendon reflexes are symmetric and plantars downgoing. Sensory to touch is equal with no neglect. Cerebellar function showed no ataxia for [id number] testing. No dysdiadochokinesia. Tone and bulk of muscles normal. Gait normal. On general examination, there is no carotid bruit or murmur, S1-S2 audible. Abdomen is soft nontender. Chest is clear. Peripheral pulses are present. No edema. - Labs CBC & Chem 7: 06/07/21 07:27 06/07/21 07:27 Labs: Abnormal Lab Results - Last 24 Hours (Table) 06/06/21 06/06/21 06/06/21 Range/Units 07:28 16:29 19:41 WBC (3.8-10.6) k/uL Neutrophils # (1.3-7.7) k/uL BUN (9-20) mg/dL Creatinine (0.66-1.25) mg/dL POC Glucose (mg/dL) 329 H 173 H (75-99) mg/dL Triglycerides 188.0 H (0.0-149.0) mg/dL Urine Glucose (UA) (Negative) 06/06/21 06/07/21 06/07/21 Range/Units 20:14 07:25 07:27 WBC 14.0 H (3.8-10.6) k/uL Neutrophils # 8.0 H (1.3-7.7) k/uL BUN (9-20) mg/dL Creatinine (0.66-1.25) mg/dL POC Glucose (mg/dL) 102 H (75-99) mg/dL Triglycerides (0.0-149.0) mg/dL Urine Glucose (UA) 1+ H (Negative) 06/07/21 06/07/21 Range/Units 07:27 12:08 WBC (3.8-10.6) k/uL Neutrophils # (1.3-7.7) k/uL BUN 33 H (9-20) mg/dL Creatinine 1.51 H (0.66-1.25) mg/dL POC Glucose (mg/dL) 110 H (75-99) mg/dL Triglycerides (0.0-149.0) mg/dL Urine Glucose (UA) (Negative) Assessment and Plan Assessment: * Probable TIA manifesting with right hemiparesis mainly involving the right arm and leg. All neuro deficits has now resolved. * Diabetes * Hypertension * Hyperlipidemia * Bilateral ICA stenosis, left side 70% (symptomatic), whereas moderate 50-60% right side. * Pacemaker placement. * X tobacco use Plan: * Patient probably had a TIA. Patient's neurological symptoms have much completely resolved. NIH stroke scale 0. * Patient was on aspirin 81 mg. We will add Plavix 75 mg to the regimen. * Vascular surgery seen the patient, recommending revascularization surgery as an outpatient in 1 week. * 2-D echo with bubble study revealed normal left ventricular size. Moderate concentric LVH. EF is between 55-60%. Left atrium is severely dilated. Electronic pacemaker lead seen in the right atrial cavity. Mild ER. * Fasting lipid panel with cholesterol 154, LDL 59.4, HDL 56 and triglycerides 193. Continue Lipitor 40 mg. * Hemoglobin A1c 6.6 on 11/16/2020. * Telemetry monitoring revealed paced rhythm, no evidence of A. fib. * Patient cannot have MRI due to pacemaker. * Neurologically clear for discharge. Patient will follow up with less neurosurgery as outpatient.
--- NOTE | 2021-06-07 13:32 | P.PN ---
Subjective Progress Note Date: 06/07/21 Principal diagnosis: Left-sided weakness, TIA, carotid stenosis Patient seen and examined lying in bed. He is without any changes through the night. He has no complaints of any focal deficit. No complaints of right upper or lower extremity weakness. Plan is for discharge and follow up next week for outpatient TCAR. Objective - Vital Signs Vital signs: Vital Signs Temp 98.4 F 06/07/21 03:29 Pulse 60 06/07/21 03:29 Resp 16 06/07/21 03:29 BP 153/62 06/07/21 03:29 Pulse Ox 95 06/07/21 03:29 Intake & Output 06/06/21 06/07/21 06/07/21 18:59 06:59 18:59 Intake Total 670 480 Output Total 300 200 Balance 370 280 Weight 86.5 kg Intake: Oral 670 480 Output: Urine 300 200 Other: Voiding Method Toilet Toilet # Voids 1 1 - Exam General appearance: The patient is alert, oriented, in no acute distress. HET: Head is normocephalic and atraumatic. Pupils are equal and reactive. Neck: Supple without lymphadenopathy. Trachea midline. Heart: S1 S2. Regular rate and rhythm. Lungs: Clear to auscultation. Abdomen: Soft, nontender, nondistended. Extremities: Normal skin color and turgor. No cyanosis, rash, ulceration, clubbing, or edema. Neurological: No focal deficits. Strength and sensation are grossly intact. - Labs CBC & Chem 7: 06/07/21 07:27 06/07/21 07:27 Labs: Abnormal Lab Results - Last 24 Hours (Table) 06/06/21 06/06/21 06/06/21 Range/Units 07:28 11:52 16:29 WBC (3.8-10.6) k/uL Neutrophils # (1.3-7.7) k/uL BUN (9-20) mg/dL Creatinine (0.66-1.25) mg/dL POC Glucose (mg/dL) 177 H 329 H (75-99) mg/dL Triglycerides 188.0 H (0.0-149.0) mg/dL Urine Glucose (UA) (Negative) 06/06/21 06/06/21 06/07/21 Range/Units 19:41 20:14 07:25 WBC (3.8-10.6) k/uL Neutrophils # (1.3-7.7) k/uL BUN (9-20) mg/dL Creatinine (0.66-1.25) mg/dL POC Glucose (mg/dL) 173 H 102 H (75-99) mg/dL Triglycerides (0.0-149.0) mg/dL Urine Glucose (UA) 1+ H (Negative) 06/07/21 06/07/21 Range/Units 07:27 07:27 WBC 14.0 H (3.8-10.6) k/uL Neutrophils # 8.0 H (1.3-7.7) k/uL BUN 33 H (9-20) mg/dL Creatinine 1.51 H (0.66-1.25) mg/dL POC Glucose (mg/dL) (75-99) mg/dL Triglycerides (0.0-149.0) mg/dL Urine Glucose (UA) (Negative) Assessment and Plan Assessment: 1. Symptomatic left sided carotid stenosis 2. Right upper and lower extremity weakness, likely TIA 3. Bilateral internal carotid artery stenosis 4. History coronary artery disease, status post AICD 5. History of CVA/TIA 6. Diabetes mellitus 7. Hyperlipidemia 8. Hypertension 9. Rheumatoid arthritis 10. Thyroid disorder Plan: 1. CTA head and neck reviewed 2. Carotid Doppler ultrasound ordered and reviewed 3. Continue aspirin, Plavix, and statin 4. Cardiology consulted for clearance for possible carotid endarterectomy/TCAR 5. Discussion had with patient and regarding possible surgical intervention including risks and benefits of both cartotid endartectomy and trans Carotid artery revascularization 6. Patient may be discharged home from a vascular surgical standpoint with outpatient follow up with Dr. Gooden and will plan to schedule patient next week for TCAR Thank you for this consultation and allowing us take part in the plan of care of your patient during his hospital stay The impression and plan of care has been dictated as directed. Dr. Gooden I performed a history and examination of this patient, discussed the same with the dictator. I agree with the dictator's note ,documented as a scribe. Any additional findings or plans will be noted.
--- NOTE | 2021-06-07 14:40 | P.DS ---
Providers Date of admission: 06/05/21 12:20 Expected date of discharge: 06/07/21 Attending physician: Macy Back Consults: 06/05/21 12:20 Consult Physician Urgent Consulting Provider: Edda Gooden Consult Reason/Comments: acute cva, carotid disease Do you want consulting provider notified?: Yes Consult Physician Urgent Consulting Provider: Carri Reeves Consult Reason/Comments: acute right sided weakness, acute cva Do you want consulting provider notified?: Yes 06/05/21 15:22 Consult Physician Routine Consulting Provider: Darien Narvaez Consult Reason/Comments: cardiac clearance for carotid endartectomy Do you want consulting provider notified?: Yes Primary care physician: Madalyn Doss Hospital Course: Final diagnosis Numbness and weakness of the right leg possible acute cerebrovascular accident an acute stroke involving the left hemisphere Left carotid artery stenosis 70%, right carotid artery stenosis 50-60% Troponin 0.113 indeterminate Hyponatremia Hyperkalemia Acute renal failure with acute tubular necrosis Chronic kidney disease stage II baseline History of CVA, TIA Diabetes mellitus type 2 history of gastroesophageal reflux disease hypertension History of pneumonia history of rheumatoid arthritis History of iron deficiency anemia History of hypothyroidism history of gout History of intraventricular AICD placement, unable to have MRI History of nicotine dependence Increased white blood count Discharge disposition Patient is being discharged in a stable condition with guarded prognosis to home. Patient will follow-up with Dr. Madalyn Doss in the outpatient setting upon discharge. Patient is to also follow-up with vascular surgery Dr. Gooden at his scheduled appointment in 2 weeks. Patient will continue on baby aspirin along with Plavix upon discharge. Patient also instructed to follow-up with his neurologist in the outpatient setting. Total time taken is greater than 35 minutes. Hospital course This is an 81-year-old male who was recently admitted with right arm weakness, numbness features of an acute stroke being closely monitored. Vascular surgery along with neurology closely following. Patient was started on Plavix and will continue along with aspirin 81 mg and will be following closely with Dr. Gooden in the outpatient setting in 1-2 weeks as he was found to have carotid stenosis of the left side proximally 70% and right carotid artery stenosis 50-60%. Patient states his symptoms have resolved and is adamant about being discharged today. Multiple medical consultations have cleared the patient for discharge and recommending continued outpatient monitoring closely with neurologist along with vascular surgery. Also instructed to follow-up with primary care provider this week. Prescription provided to monitor kidney functions along with electrolytes and CBC in the outpatient setting. Currently no reports of chest pain, shortness of breath, or palpitations. Patient is afebrile. No reports of nausea or vomiting and patient is tolerating diet. Patient will be discharged home today. On exam vital signs are stable. Cardio S1, S2 are muffled. Respiratory system shows diminished breath sounds at the bases with no wheezing or rhonchi noted. Abdomen is soft and nontender. Nervous system shows no focal deficits. Please refer to medication reconciliation sheet for a list of medications. Patient Condition at Discharge: Stable Plan - Discharge Summary New Discharge Prescriptions: New Clopidogrel [Plavix] 75 mg PO DAILY #30 tab Continue Omeprazole [PriLOSEC] 20 mg PO DAILY Pravastatin Sodium [Pravachol] 40 mg PO HS predniSONE 10 mg PO Q48H allopurinoL [Zyloprim] 100 mg PO AC-SUPPER Carvedilol [Coreg] 6.25 mg PO BID Aspirin [Adult Low Dose Aspirin EC] 81 mg PO DAILY Gabapentin 300 mg PO TID Tamsulosin HCl [Flomax] 0.4 mg PO DAILY Calcium Carbonate/Vitamin D3 [Calcium 600 mg-Vit D3 5 mcg (200 unit)] 1 tab PO DAILY Insulin Detemir (Levemir) [Levemir] See Protocol SQ HS PRN PRN Reason: HIGH BLOOD SUGAR INSULIN ASPART (NovoLOG) [NovoLOG (formulary)] 14 unit SQ AC-TID INSULIN ASPART (NovoLOG) [NovoLOG (formulary)] See Protocol SQ AC-TID PRN PRN Reason: HIGH BLOOD SUGAR oxyCODONE-APAP 5-325MG [Percocet 5-325 mg] 1 - 2 tab PO Q4-6H PRN PRN Reason: Pain predniSONE 5 mg PO Q48H Insulin Detemir (Levemir) [Levemir] 28 unit SQ HS Discontinued Torsemide [Demadex] 10 mg PO DAILY Discharge Medication List Omeprazole [PriLOSEC] 20 mg PO DAILY 11/24/18 [History] Pravastatin Sodium [Pravachol] 40 mg PO HS 02/27/19 [History] predniSONE 10 mg PO Q48H 10/06/19 [History] allopurinoL [Zyloprim] 100 mg PO AC-SUPPER 10/09/19 [History] Carvedilol [Coreg] 6.25 mg PO BID 11/30/19 [History] Aspirin [Adult Low Dose Aspirin EC] 81 mg PO DAILY 03/23/20 [History] Gabapentin 300 mg PO TID 01/30/21 [History] Calcium Carbonate/Vitamin D3 [Calcium 600 mg-Vit D3 5 mcg (200 unit)] 1 tab PO DAILY 06/05/21 [History] INSULIN ASPART (NovoLOG) [NovoLOG (formulary)] 14 unit SQ AC-TID 06/05/21 [Hi story] INSULIN ASPART (NovoLOG) [NovoLOG (formulary)] See Protocol SQ AC-TID PRN 06/05/21 [History] Insulin Detemir (Levemir) [Levemir] 28 unit SQ HS 06/05/21 [History] Insulin Detemir (Levemir) [Levemir] See Protocol SQ HS PRN 06/05/21 [History] Tamsulosin HCl [Flomax] 0.4 mg PO DAILY 06/05/21 [History] oxyCODONE-APAP 5-325MG [Percocet 5-325 mg] 1 - 2 tab PO Q4-6H PRN 06/05/21 [History] predniSONE 5 mg PO Q48H 06/05/21 [History] Clopidogrel [Plavix] 75 mg PO DAILY #30 tab 06/07/21 [Rx] Follow up Appointment(s)/Referral(s): Madalyn Doss MD [Primary Care Provider] - 06/12/21 2:00 pm Edda Gooden DO [STAFF PHYSICIAN] - 06/21/21 9:30 am Ambulatory/Diagnostic Orders: Complete Blood Count w/diff [LAB.AMB] Time Frame: 3 Days, Location: None Selected Patient Instructions/Handouts: Peripheral Artery Disease (DC), Stroke (DC), Type 2 Diabetes in the Older Adult (DC) Activity/Diet/Wound Care/Special Instructions: Activity Limited until follow-up Follow-up with primary care provider upon discharge Follow-up with vascular surgery as discussed continue with medications as prescribed continue to hold torsemide until follow-up with primary care provider Repeat labs in 2-3 days to monitor kidney functions and white blood count continue with heart healthy diet and consistent carb diet Continue to monitor blood sugars before meals and at bedtime and keep a diary for primary care follow-up Discharge Disposition: HOME SELF-CARE
== END 2021-06-07 13:16 | disposition home or self-care (01) | DRG 64 ==
LOC: EC 09:38 → 3SCARD 12:20
PROVIDERS: ADMIT Hospitalist; ATTEND Hospitalist
DX: I63.232 Cerebral infarction due to unspecified occlusion or stenosis of left carotid arteries (principal); N17.0 Acute kidney failure with tubular necrosis; G81.91 Hemiplegia, unspecified affecting right dominant side; E87.1 Hypo-osmolality and hyponatremia; R29.703 NIHSS score 3; E03.9 Hypothyroidism, unspecified; E87.5 Hyperkalemia; E78.5 Hyperlipidemia, unspecified; E11.22 Type 2 diabetes mellitus with diabetic chronic kidney disease; N18.2 Chronic kidney disease, stage 2 (mild); H91.90 Unspecified hearing loss, unspecified ear; K21.9 Gastro-esophageal reflux disease without esophagitis; M19.90 Unspecified osteoarthritis, unspecified site; M06.9 Rheumatoid arthritis, unspecified; I08.0 Rheumatic disorders of both mitral and aortic valves; I49.3 Ventricular premature depolarization; I65.21 Occlusion and stenosis of right carotid artery; I25.10 Atherosclerotic heart disease of native coronary artery without angina pectoris; M10.9 Gout, unspecified; I12.9 Hypertensive chronic kidney disease with stage 1 through stage 4 chronic kidney disease, or unspecified chronic kidney disease; Z96.651 Presence of right artificial knee joint; Z79.4 Long term (current) use of insulin; Z79.82 Long term (current) use of aspirin; Z79.899 Other long term (current) drug therapy; Z79.52 Long term (current) use of systemic steroids; Z86.73 Personal history of transient ischemic attack (TIA), and cerebral infarction without residual deficits; Z95.810 Presence of automatic (implantable) cardiac defibrillator; Z87.891 Personal history of nicotine dependence; Z87.01 Personal history of pneumonia (recurrent); Z90.49 Acquired absence of other specified parts of digestive tract; Z82.49 Family history of ischemic heart disease and other diseases of the circulatory system; Z88.8 Allergy status to other drugs, medicaments and biological substances; Z88.1 Allergy status to other antibiotic agents; Z91.041 Radiographic dye allergy status; Z91.013 Allergy to seafood
CPT/HCPCS: 36415; 70450; 70496; 70498; 71046; 80048; 80053; 80061; 81003; 82150; 84484; 85025; 85610; 85730; 93005; 93306; 93880; 96361; 96374; 96375; 99285

== ENCOUNTER → 2021-06-08 | Outpatient (CLI) | payer MEDICARE, BC ==
[2021-06-08 15:34] LABS: HCT 42.1 % (39.6-50.0); HGB 13.3 g/dL (13.0-17.0); MCH 30.5 pg (27.0-32.0); MCHC 31.6 g/dL (32.0-37.0); MCV 96.6 fL (80.0-97.0); Mean Platelet Volume 11.5 fL (9.5-12.2); Platelet Count 324 X 10*3/uL (140-440); RBC 4.36 X 10*6/uL (4.40-5.60); RDW 15.1 % (11.5-14.5); WBC 17.23 X 10*3/uL (4.50-10.00)
[2021-06-08 16:39] LABS: Basophils # (M) 0 X 10*3/uL (0.00-0.10); Eosinophils # (M) 0.34 X 10*3/uL (0.04-0.35); Lymphocytes # (M) 8.79 X 10*3/uL (0.90-5.00); Monocytes # (M) 0.52 X 10*3/uL (0.20-1.00); Neutrophils # (M) 7.58 X 10*3/uL (2.00-8.90); Neutrophils % (M) 44 %; Smudge Cells PRESENT
[2021-06-08 20:35] LABS: African American GFR (CKD) 53.8 (60.0-200.0); Anion Gap 9.9 mmol/L (4.00-12.00); BUN/Creat Ratio 22.86 Ratio (12.00-20.00); Calcium 8.4 mg/dL (8.7-10.3); Carbon Dioxide 24.1 mmol/L (21.6-31.8); Non-African American GFR(CKD) 46.5 (60.0-200.0)
== END | disposition home or self-care (01) ==
LOC: LABWHC1 09:11
PROVIDERS: ATTEND Registered Nurse
DX: D72.829 Elevated white blood cell count, unspecified (principal); R94.4 Abnormal results of kidney function studies
CPT/HCPCS: 36415; 80048; 85025

== ENCOUNTER 2021-06-23 07:48 | Inpatient (IN) | payer MEDICARE, BC ==
[2021-06-22 09:07] VITALS: BMI 27.6
[~2021-06-23 07:48] MED LIST changes: +ALPRAZolam 0.25 MG TAB PO PRN; +ALPRAZolam 0.5 MG TAB PO PRN; +ASPIRIN 81 MG PO PRN; +CLINDAMYCIN 600 MG in SODIUM CHLORIDE 0.9% 250 ML IRRIGATION PRN; +CLINDAMYCIN 900 MG in DEXTROSE 5% IN WATER 50 ML IVPB PRN; +CLOPIDOGREL 75 MG TAB PO PRN; -LACTATED RINGERS 1,000 ML IV SCH; -LIDOCAINE 1% (10MG/ML) FOR IV START INTRADERMA PRN; +NITROGLYCERIN SL TABS 0.4 MG TAB SUBLINGUAL PRN; +SODIUM CHLORIDE 0.9% 1,000 ML in EMPTY BAG 1 BAG IV ONE
[2021-06-23 08:25] LABS: Glucose,Whole Blood 239 mg/dL (75-99)
[2021-06-23 08:43] LABS: Basophils % (A) 0 %; Eosinophils % (A) 0 %; HCT 41.9 % (39.0-53.0); HGB 14.1 gm/dL (13.0-17.5); Lymphocytes # (A) 2.9 k/uL (1.0-4.8); Lymphocytes % (A) 23 %; MCH 31.9 pg (25.0-35.0); MCHC 33.6 g/dL (31.0-37.0); Mean Platelet Volume 8.1; Monocytes # (A) 0.1 k/uL (0-1.0); Monocytes % (A) 1 %; Neutrophils # (A) 8.9 k/uL (1.3-7.7); Neutrophils % (A) 73 %; Platelet Count 275 k/uL (150-450); RBC 4.41 m/uL (4.30-5.90); RDW 14.3 % (11.5-15.5); WBC 12.2 k/uL (3.8-10.6)
[2021-06-23 08:52] LABS: Potassium 5.1 mmol/L (3.5-5.1)
[2021-06-23] MEDS ORDERED: INSULIN ASPART (NovoLOG) 100 UNIT/ML VIAL SQ ONE ×2 (08:53→21:33)
[2021-06-23] MEDS ORDERED: HEPARIN SODIUM,PORCINE 10,000 UNIT/ML 1 ML VIAL ONE (11:08)
[2021-06-23] MEDS ORDERED: DEXMEDETOMIDINE/0.9% NACL(PMX) 400 MCG/100 ML IV ONE (11:08)
[2021-06-23] MEDS ORDERED: PHENYLEPHRINE-0.9% NACL SYG 1,000 MCG/10 ML SYRINGE ONE (11:08)
[2021-06-23] MEDS ORDERED: SUCCINYLCHOLINE CHLORIDE 100 MG/5 ML SYR IV ONE (11:08)
[2021-06-23] MEDS ORDERED: NITROGLYCERIN-D5W PMX 50 MG/250 ML BOTTLE IV ONE (11:08)
[2021-06-23] MEDS ORDERED: fentaNYL (PF) 50 MCG/ML 2 ML AMP ONE (11:08)
[2021-06-23] MEDS ORDERED: INSULIN REGULAR 100 UNIT/ML VIAL (IV) IV ONE (11:08)
[2021-06-23] MEDS ORDERED: PROTAMINE SULFATE 10 MG/ML 5 ML VIAL IV ONE (11:08)
[2021-06-23] MEDS ORDERED: PROPOFOL 10 MG/ML 20 ML VIAL IV ONE (11:08)
[2021-06-23] MEDS ORDERED: GELATIN SPONGE,ABSORB (LARGE) 1 EACH SPONGE TOPICAL ONE (12:54)
[2021-06-23] MEDS ORDERED: THROMBIN (BOVINE) 5,000 UNIT VIAL TOPICAL ONE (12:54)
[2021-06-23] MEDS ORDERED: LIDOCAINE 1% INJ 10MG/ML (20 ML MDV) SQ ONE (12:55)
[2021-06-23] MEDS ORDERED: HEPARIN SODIUM,PORCINE 10,000 UNIT in SODIUM CHLORIDE 0.9% 1,000 ML IRRIGATION ONE (12:55)
[2021-06-23 12:57] LABS: Glucose,Whole Blood 245 mg/dL (75-99)
[2021-06-23] MEDS ORDERED: BENZOCAINE/MENTHOL LOZENG 1 EACH LOZENGE MUCOUS MEM PRN (13:18)
[2021-06-23] MEDS ORDERED: MAG HYDROX/AL HYDROX/SIMETH 30 ML CUP PO PRN (13:18)
[2021-06-23] MEDS ORDERED: TRIMETHOBENZAMIDE 100 MG/ML 2 ML VIAL IM PRN (13:18)
[2021-06-23] MEDS ORDERED: ACETAMINOPHEN TAB 325 MG TAB PO PRN (13:18)
--- NOTE | 2021-06-23 13:18 | P.OP ---
Date of Procedure: 06/23/21 Description of Procedure: Preoperative diagnosis:[ Left] internal carotid artery [high-grade stenosis, symptomatic, greater than 70%] Postoperative diagnosis: Same Procedure: [Left]Transcarotid artery revascularization with stenting. [Right] common femoral vein central venous catheter placement under ultrasound guidance Surgeon: Edda Gooden DO Speech/Language Therapist: [Dayan Scanlon] Anesthesia: Gen. endotracheal Complications: None Condition: Stable Flow reversal time: [8] minutes Lesion length: [20] mm Indication for procedure: [Mark is an 81-year-old male who previously came in with right-sided weakness and some speech difficulties and was found to have high-grade left internal carotid artery stenosis, 70%. At that time he was initiated on dual antiplatelet therapy and plan to come back for a left trans- carotid artery revascularization given his age and symptomatically nature of his disease. Risks and benefits were discussed with he and his family who seemingly understood and were willing to proceed as such ] Operative narrative: After written and informed consent was obtained the patient all risks benefits and competitions were described the patient was brought to the [facility] and laid in a supine position. The area of the neck and groins were prepped and draped in usual sterile fashion after appropriate anesthetic was performed per the anesthesiologist. A timeout was performed in normal fashion and antibiotics were administered prior to incision. Utilizing ultrasound the left common carotid artery was located and a transverse incision was created overlying this area.. Dissection was carried between the sternocleidomastoid musculature down to the carotid sheath. The sheath was then incised and the common carotid artery was located and dissected free in a circumferential manner and controlled with umbilical tape. Once controlled, attention was placed down to the common femoral vein and utilizing ultrasound the vein was cannulated and the 8-[place] sheath was placed in normal fashion. Attention was then placed back to the carotid artery and the patient was administered heparin and followed with ACTs and redosed as needed for ACT above 250. A pursestring suture was then placed at the common carotid artery with 5-0 Prolene and utilizing a micropuncture needle the common carotid artery was accessed and wire was placed followed by a 4-[place] sheath. Carotid angiogram was then showing the areas of stenosis in the internal carotid artery, although hard to find an area of 70% stenosis on this image. Given his symptomatic nature and still greater than 50% stenosis the plan was to go forward with the procedure. Stiff wire was then placed followed by the 8 [place] sheath. Flow reversal was then established with the enroute PLATE MAKER system after patient's blood pressure was increased to above 160, heart rate above 60 and ACT above 250. 014 wire was then placed across the lesion followed by a 6 x 30 mm [place] balloon and balloon angioplasty was performed followed by an 10 x 40 mm [place] stent. Postdilatation was [not] performed and final angiogram was obtained demonstrating complete resolution of the stenosis. All guidewires and catheters were removed and the sheath was removed and the arteriotomy was secured with the previously placed pursestring suture. Hemostasis was assured with Gelfoam and thrombin. The area was irrigated and closed. The platysma was closed with 3-0 Vicryl. The skin was closed with running 4-0 Monocryl in subcuticular fashionThe femoral sheath was also removed and pressure was held for hemostasis. The patient all procedure well and was moving all extremities and following commands. The patient was then sent to PACU for recovery.
[2021-06-23] MEDS ORDERED: IV FLUID CONTINUATION 1,000 ML IV ONE (13:21)
[2021-06-23 13:28] LABS: Glucose,Whole Blood 248 mg/dL (75-99)
--- NOTE | 2021-06-23 13:39 | IR ---
EXAMINATION TYPE: IR stent intravas non coronary DATE OF EXAM: 06/23/2021 COMPARISON: NONE HISTORY: Fluoroscopy time. Fluoroscopy was provided to the referring clinician.
[2021-06-23 14:33] LABS: Glucose,Whole Blood 220 mg/dL (75-99)
[2021-06-23 16:23] LABS: Glucose,Whole Blood 209 mg/dL (75-99)
[2021-06-23] MEDS ORDERED: allopurinoL 100 MG TAB PO SCH (17:30)
[2021-06-23] MEDS ORDERED: INSULIN ASPART (NovoLOG) 100 UNIT/ML VIAL SQ SCH (17:30)
[2021-06-23 18:26] LABS: Glucose,Whole Blood 299 mg/dL (75-99)
[2021-06-23] MEDS ORDERED: oxyCODONE-APAP 5-325MG 1 EACH TAB PO PRN (18:32)
[2021-06-23] MEDS: INSULIN ASPART (NovoLOG) 100 UNIT/ML VIAL SQ SCH ×2 (18:46→21:49)
[2021-06-23] MEDS: carvediloL 6.25 MG TAB PO SCH (18:47)
[2021-06-23] MEDS ORDERED: PRAVASTATIN SODIUM 40 MG TAB PO SCH (21:00)
[2021-06-23] MEDS ORDERED: INSULIN DETEMIR (LEVEMIR) 100 UNIT/ML SYR SQ SCH (21:00)
[2021-06-23 21:13] LABS: Glucose,Whole Blood 425 mg/dL (75-99)
[2021-06-23] MEDS ORDERED: hydrALAZINE HCL 20 MG/ML 1 ML VIAL IVP STA (21:13)
[2021-06-23] MEDS: GABAPENTIN 300 MG CAP PO SCH (21:48)
--- NOTE | 2021-06-24 01:12 | P.CONS ---
History of Present Illness - Reason for Consult Consult date: 06/23/21 Medical management - Chief Complaint Status post left carotid revascularization. - History of Present Illness Patient is a 81-year-old male with a known history of hypertension, hyperlipidemia, diabetes type 2 insulin-dependent, diabetic peripheral neuropathy, pancreatitis, hypothyroidism, cardiomyopathy status post biventricular ICD, interstitial lung disease and history of CVA 2005 and recent admission due to CVA with right-sided weakness and speech difficulties. Was admitted hospital for elective carotid stent placement. Patient had ultrasound duplex on 06/05/2021 showed more than 70% stenosis seen in left internal carotid artery.. Today patient underwent transcarotid artery revascularization with stenting.. Patient tolerated the procedure well. Currently denies any complaints of chest pain or shortness of breath. No nausea vomiting or abdominal pain. No headache or dizziness. Laboratory data show WBC 12.2 hemoglobin 14.1 and platelets 275 Sodium 132 potassium 5.1 BUN 37 creatinine 1.38 and blood sugar is 239 Review of Systems Constitutional: Patient denies any fever or chills . No generalized weakness or weight loss. Abdomen: Patient denied nausea vomiting and diarrhea and abdominal pain. Cardiovascular: Patient denies any chest pain or short of breath no palpitations. Respiratory: patient denied any cough or sputum production. No shortness of breath Neurologic: Patient denied any numbness or tingling headache. Musculoskeletal: Patient denies any complaints of joint swelling or deformity. Skin: Negative Psychiatric: Negative Endocrine: No heat or cold intolerance. No recent weight gain. Genitourinary: No dysuria or hematuria. All other 14 point ROS negative except the above Past Medical History Past Medical History: CVA/TIA, Diabetes Mellitus, GERD/Reflux, Hearing Disorder / Deafness, Hyperlipidemia, Hypertension, Musculoskeletal Disorder, Pneumonia, Renal Disease, Rheumatoid Arthritis (RA), Thyroid Disorder Additional Past Medical History / Comment(s): LOW IRON LEVELS AND FATIGUE. Hx CMP w/ BiVICD. 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 chronic back pain, recent adm. due to CVA, hx. chronic elevated white count, anemia per spouse History of Any Multi-Drug Resistant Organisms: None Reported Past Surgical History: AICD, Appendectomy, Back Surgery, Heart Catheterization, Joint Replacement, Tonsillectomy Additional Past Surgical History / Comment(s): Biventricular AICD placement/[facility] [employer], battery change r/t recall, Back surgery 6, colonoscopy, past hx of pain clinic procedure, cataract sx, Oral sx "to smooth down bones in mouth." 01/18/20 RT TOTAL KNEE; 02/24/20 Repair Rt knee tendon. Past Anesthesia/Blood Transfusion Reactions: No Reported Reaction Additional Past Anesthesia/Blood Transfusion Reaction / Comm: blood transfusion- no reaction; BP was high when came in for his 1st pain procedure-procedure was canceled- states no problem since. Type of Cardiac Device: AICD Device Placement Date:: 2016 Smoking Status: Former smoker - Past Family History Father History Unknown: Yes Mother Family Medical History: Hyperlipidemia, Hypertension, Myocardial Infarction (MD) Additional Family Medical History / Comment(s): . Medications and Allergies Home Medications Medication Instructions Recorded Confirmed Type Omeprazole [PriLOSEC] 20 mg PO DAILY 11/24/18 06/23/21 History Pravastatin Sodium [Pravachol] 40 mg PO HS 02/27/19 06/23/21 History predniSONE 10 mg PO Q48H 10/06/19 06/23/21 History allopurinoL [Zyloprim] 100 mg PO AC-SUPPER 10/09/19 06/23/21 History Carvedilol [Coreg] 6.25 mg PO BID 11/30/19 06/23/21 History Aspirin [Adult Low Dose Aspirin EC] 81 mg PO DAILY 03/23/20 06/23/21 History Gabapentin 300 mg PO TID 01/30/21 06/23/21 History Calcium Carbonate/Vitamin D3 1 tab PO DAILY 06/05/21 06/23/21 History [Calcium 600 mg-Vit D3 5 mcg (200 unit)] INSULIN ASPART (NovoLOG) [NovoLOG See Protocol SQ AC-TID 06/05/21 06/23/21 History (formulary)] Insulin Detemir (Levemir) [Levemir] 28 unit SQ HS 06/05/21 06/23/21 History Tamsulosin HCl [Flomax] 0.4 mg PO DAILY 06/05/21 06/23/21 History oxyCODONE-APAP 5-325MG [Percocet 1 tab PO Q4-6H PRN 06/05/21 06/23/21 History 5-325 mg] predniSONE 5 mg PO Q48H 06/05/21 06/23/21 History Clopidogrel [Plavix] 75 mg PO DAILY #30 tab 06/07/21 06/23/21 Rx Allergies Allergy/AdvReac Type Severity Reaction Status Date / Time amlodipine Allergy swelling Verified 06/22/21 08:33 of feet doxycycline Allergy Anaphylaxis Verified 06/22/21 08:33 Iodinated Contrast Media Allergy Anaphylaxis Verified 06/22/21 08:33 [Iodinated Contrast- Oral and IV Dye] iodine Allergy Anaphylaxis Verified 06/22/21 08:33 metronidazole [From Flagyl] Allergy Rash/Hives Verified 06/22/21 08:33 shrimp Allergy Rash/Hives Verified 06/22/21 08:33 acarbose AdvReac Abdominal Verified 06/22/21 08:33 Pain adhesive tape AdvReac SKIN PULLS Verified 06/22/21 08:33 OFF " amoxicillin trihydrate AdvReac Nausea & Verified 06/22/21 08:33 [From Augmentin] Vomiting potassium clavulanate AdvReac Nausea & Verified 06/22/21 08:33 [From Augmentin] Vomiting Physical Exam Vitals: Vital Signs Temp Pulse Pulse Resp BP BP BP 06/23/21 15:00 60 15 06/23/21 14:50 60 12 06/23/21 14:40 60 14 06/23/21 14:31 97.9 F 60 19 134/62 06/23/21 14:06 60 16 127/62 142/51 06/23/21 13:50 60 16 140/51 06/23/21 13:35 60 18 131/62 135/47 06/23/21 13:21 97.3 F L 60 16 146/47 06/23/21 08:20 97.7 F 61 16 194/85 195/84 Pulse Ox 06/23/21 15:00 91 L 06/23/21 14:50 94 L 06/23/21 14:40 92 L 06/23/21 14:31 92 L 06/23/21 14:06 96 06/23/21 13:50 98 06/23/21 13:35 97 06/23/21 13:21 96 06/23/21 08:20 94 L Intake and Output 06/23/21 06/23/21 06/23/21 06:59 14:59 22:59 Intake Total 53 50 Balance 53 50 Intake: IV 53 50 0.9NS 50 Other: Weight 85.5 kg ABP, PAP, CO, CI - Last 8 Hours Arterial Blood Pressure 145/53 Arterial Blood Pressure 141/51 Arterial Blood Pressure 142/54 Arterial Blood Pressure 141/52 Results CBC & Chem 7: 06/23/21 08:25 06/23/21 08:25 Labs: Abnormal Lab Results - Last 24 Hours (Table) 06/23/21 06/23/21 06/23/21 Range/Units 08:16 08:25 08:25 WBC 12.2 H (3.8-10.6) k/uL Neutrophils # 8.9 H (1.3-7.7) k/uL Sodium 132 L (137-145) mmol/L BUN 37 H (9-20) mg/dL Creatinine 1.38 H (0.66-1.25) mg/dL Glucose 281 H (74-99) mg/dL POC Glucose (mg/dL) 239 H (75-99) mg/dL 06/23/21 06/23/21 06/23/21 Range/Units 12:56 13:26 14:31 WBC (3.8-10.6) k/uL Neutrophils # (1.3-7.7) k/uL Sodium (137-145) mmol/L BUN (9-20) mg/dL Creatinine (0.66-1.25) mg/dL Glucose (74-99) mg/dL POC Glucose (mg/dL) 245 H 248 H 220 H (75-99) mg/dL 06/23/21 Range/Units 16:12 WBC (3.8-10.6) k/uL Neutrophils # (1.3-7.7) k/uL Sodium (137-145) mmol/L BUN (9-20) mg/dL Creatinine (0.66-1.25) mg/dL Glucose (74-99) mg/dL POC Glucose (mg/dL) 209 H (75-99) mg/dL Assessment and Plan Assessment: High-grade carotid stenosis status post left carotid revascularization with stent placement. Recent history of CVA with right-sided numbness and weakness. Diabetes type 2 insulin-dependent Diabetic peripheral neuropathy Hypertension Interstitial lung disease/rheumatoid lung Rheumatoid arthritis Hypothyroidism Cardiomyopathy status post biventricular ICD placement History of CVA/TIA. Hypertension Hyperlipidemia Previous history of smoking DVT prophylaxis Plan: Patient is status post left carotid revascularization and stent placement. Continue to monitor the patient in the MICU. Continue with neurochecks. Patient's blood sugar is elevated and will be continued insulin sliding scale and Levemir 28 units at bedtime as per home dose. Continue with aspirin, plavix, Coreg and statins. Continue pain management with [place] and gabapentin. Will continue to follow and further recommendations based on clinical course. Follow-up CBC and BMP. Thank you for your consult. Time with Patient: Greater than 30
[2021-06-24 04:43] LABS: Basophils # (A) 0.1 k/uL (0-0.2); Basophils % (A) 0 %; Eosinophils % (A) 0 %; HCT 38.3 % (39.0-53.0); HGB 13.1 gm/dL (13.0-17.5); Lymphocytes # (A) 4.4 k/uL (1.0-4.8); Lymphocytes % (A) 19 %; MCHC 34.1 g/dL (31.0-37.0); MCV 93.9 fL (80.0-100.0); Mean Platelet Volume 8.4; Monocytes # (A) 1.4 k/uL (0-1.0); Monocytes % (A) 6 %; Neutrophils # (A) 16.8 k/uL (1.3-7.7); Neutrophils % (A) 72 %; Platelet Count 304 k/uL (150-450); RBC 4.08 m/uL (4.30-5.90); RDW 14.4 % (11.5-15.5); WBC 23.2 k/uL (3.8-10.6)
[2021-06-24 06:33] LABS: Glucose,Whole Blood 146 mg/dL (75-99)
[2021-06-24] MEDS: carvediloL 6.25 MG TAB PO SCH (06:46)
[2021-06-24] MEDS: INSULIN ASPART (NovoLOG) 100 UNIT/ML VIAL SQ SCH ×2 (06:46→12:38)
[2021-06-24 07:05] VITALS: PULSE 60; RESP 14
[2021-06-24] MEDS ORDERED: TAMSULOSIN 0.4 MG CAP.ER.24H PO SCH (08:30)
[2021-06-24] MEDS ORDERED: CLOPIDOGREL 75 MG TAB PO SCH (09:00)
[2021-06-24] MEDS ORDERED: ASPIRIN 81 MG PO SCH ×2 (09:00)
[2021-06-24] MEDS ORDERED: CALCIUM CARB-VIT D 500 MG-5 MCG TAB PO SCH (09:00)
[2021-06-24] MEDS: GABAPENTIN 300 MG CAP PO SCH (09:13)
[2021-06-24 10:06] VITALS: BP 172/71; TEMP 98.8
[2021-06-24 10:59] LABS: Potassium 4.6 mmol/L (3.5-5.1)
[2021-06-24 12:09] LABS: Glucose,Whole Blood 251 mg/dL (75-99)
--- NOTE | 2021-06-24 12:38 | P.DS ---
Providers Date of admission: 06/23/21 07:48 Attending physician: Edda Gooden DO Consults: 06/23/21 13:18 Consult Physician Routine Consulting Provider: Sagrario Rodriguez Reason/Comments: post carotid surgery Do you want consulting provider notified?: Yes 06/23/21 15:38 Consult Physician Routine Consulting Provider: aMcy Back Reason/Comments: medical management;dr. sagrario rodriguez patient Do you want consulting provider notified?: Yes Primary care physician: Sagrario Rodriguez Hospital Course: Mark is an 81-year-old male who came into the hospital on 06/23/2021 for a trans-carotid artery revascularization due to with symptomatic left internal carotid artery stenosis. He tolerated the procedure well. He is tolerating a diet, urinating without difficulty and maintaining blood pressures appropriately. The arterial line has been removed. His incision is clean and dry. He is ready to go home and already is dressed to do so Plan - Discharge Summary Discharge Rx Participant: No New Discharge Prescriptions: No Action Omeprazole [PriLOSEC] 20 mg PO DAILY Pravastatin Sodium [Pravachol] 40 mg PO HS predniSONE 10 mg PO Q48H allopurinoL [Zyloprim] 100 mg PO AC-SUPPER Carvedilol [Coreg] 6.25 mg PO BID Aspirin [Adult Low Dose Aspirin EC] 81 mg PO DAILY Gabapentin 300 mg PO TID Tamsulosin HCl [Flomax] 0.4 mg PO DAILY Calcium Carbonate/Vitamin D3 [Calcium 600 mg-Vit D3 5 mcg (200 unit)] 1 tab PO DAILY INSULIN ASPART (NovoLOG) [NovoLOG (formulary)] See Protocol SQ AC-TID oxyCODONE-APAP 5-325MG [Percocet 5-325 mg] 1 tab PO Q4-6H PRN PRN Reason: Pain predniSONE 5 mg PO Q48H Insulin Detemir (Levemir) [Levemir] 28 unit SQ HS Clopidogrel [Plavix] 75 mg PO DAILY #30 tab Discharge Medication List Omeprazole [PriLOSEC] 20 mg PO DAILY 11/24/18 [History] Pravastatin Sodium [Pravachol] 40 mg PO HS 02/27/19 [History] predniSONE 10 mg PO Q48H 10/06/19 [History] allopurinoL [Zyloprim] 100 mg PO AC-SUPPER 10/09/19 [History] Carvedilol [Coreg] 6.25 mg PO BID 11/30/19 [History] Aspirin [Adult Low Dose Aspirin EC] 81 mg PO DAILY 03/23/20 [History] Gabapentin 300 mg PO TID 01/30/21 [History] Calcium Carbonate/Vitamin D3 [Calcium 600 mg-Vit D3 5 mcg (200 unit)] 1 tab PO DAILY 06/05/21 [History] INSULIN ASPART (NovoLOG) [NovoLOG (formulary)] See Protocol SQ AC-TID 06/05/21 [History] Insulin Detemir (Levemir) [Levemir] 28 unit SQ HS 06/05/21 [History] Tamsulosin HCl [Flomax] 0.4 mg PO DAILY 06/05/21 [History] oxyCODONE-APAP 5-325MG [Percocet 5-325 mg] 1 tab PO Q4-6H PRN 06/05/21 [History] predniSONE 5 mg PO Q48H 06/05/21 [History] Clopidogrel [Plavix] 75 mg PO DAILY #30 tab 06/07/21 [Rx] Follow up Appointment(s)/Referral(s): Edda Gooden DO [STAFF PHYSICIAN] - 2 Weeks Activity/Diet/Wound Care/Special Instructions: Resume regular activity. May shower tomorrow. Resume regular medications. May take [id number] medications for pain control Discharge Disposition: HOME SELF-CARE
== END 2021-06-24 13:40 | disposition home or self-care (01) | DRG 36 ==
LOC: 2ORMAIN 07:48 → EDSTATUS 10:00 → 2SICU 13:16
PROVIDERS: ADMIT Surgery; ATTEND Surgery
PROC: 037L3DZ Dilation of Left Internal Carotid Artery with Intraluminal Device, Percutaneous Approach (ICD-10-PCS; principal; 2021-06-23 10:00)
DX: I65.22 Occlusion and stenosis of left carotid artery (principal); E03.9 Hypothyroidism, unspecified; E11.42 Type 2 diabetes mellitus with diabetic polyneuropathy; E78.5 Hyperlipidemia, unspecified; I10 Essential (primary) hypertension; H91.90 Unspecified hearing loss, unspecified ear; K21.9 Gastro-esophageal reflux disease without esophagitis; M10.9 Gout, unspecified; Z95.810 Presence of automatic (implantable) cardiac defibrillator; Z87.891 Personal history of nicotine dependence; Z82.49 Family history of ischemic heart disease and other diseases of the circulatory system; Z79.899 Other long term (current) drug therapy; Z79.82 Long term (current) use of aspirin; Z79.4 Long term (current) use of insulin; Z79.02 Long term (current) use of antithrombotics/antiplatelets
CPT/HCPCS: 37215; 80048; 85025

== ENCOUNTER → 2021-07-26 | Outpatient (CLI) | payer MEDICARE, BC ==
--- NOTE | 2021-07-26 15:52 | XR ---
Scoliosis series HISTORY: Scoliosis Frontal and lateral views of the thoracic lumbar spine on 4 images There is an S-shaped thoracic lumbar scoliosis present. Postop changes are noted status post posterio r fusion at the lumbar spine extending to the sacrum and bilateral ilium. Some vertebroplasty change is present at L2. Lateral view of the thoracic spine shows reversal the normal kyphosis of the lower thoracic spine. The scoliosis centered at the upper thoracic spine at approximately T3-4 shows a levoscoliosis of [place] roximately 18 degrees, dextroscoliosis centered at the lower thoracic spine at approximately T10-11 s hows a scoliosis of approximately 18 degrees. Levoscoliosis centered at approximately L3 shows a curv ature of approximately 21 degrees. There is underlying degenerative disc change. Thoracic and lumbar vertebral bodies show preserved height. Kyphosis is centered at L1-2. Atherosclerotic vascular calcif ications are present. There are intracardiac defibrillator leads present. IMPRESSION: Spinal curvatures as described. Generative disc disease and findings above.
== END | disposition home or self-care (01) ==
LOC: RADXRMAIN 11:33
PROVIDERS: ATTEND Orthopaedic Surgery
DX: M41.85 Other forms of scoliosis, thoracolumbar region (principal); M51.36 Other intervertebral disc degeneration, lumbar region
CPT/HCPCS: 72082

== ENCOUNTER → 2021-08-28 | Outpatient (CLI) | payer MEDICARE, BC ==
[2021-08-28 11:03] VITALS: BP 144/69; PULSE 90; RESP 20; TEMP 98.1
--- NOTE | 2021-08-28 11:06 | P.PAINPG ---
Subjective Progress Note Date: 08/28/21 Principal diagnosis: lumbar back pain Mr. Diaz is a 81 -year-old pleasant male came to the [facility] pain clinic for follow-up visit . Patient has ongoing pain for many years. patient had a total of 6 lumbar back surgeries. The last surgery was sep [address] Price. patient is taking and Neurontin 300 mg 3 times a day as needed along with Tylenol 500 mg 3 times a day. Which is helping to some extent in relieving his pain. His neurosurgeon recommended to follow up with pain clinic for further management. Patient had computed tomography scan done on the 04/13/2021 showed fixation pedicle screws present L2 to L5. Laminectomies performed throughout these levels. S1 pedicle screws are present. Patient describes pain is aching, throbbing, constant type of pain. Pain is radiating to up to knee area bilaterally Patient rated pain levels are 8 out of 10 in severity. With the help of medications pain levels are 5-6out of 10 in severity. Activities making pain worse. Medications, resting, interventional procedures helping in relieving patient's pain. Patient pain some days better than others. Overall activities decreased secondary to pain. Because of the pain sometimes patient is feeling lack of sleep, interest, and en ergy. Denied any bowel or bladder problems at this time. Patient is using long stick for walking support. Patient denies any suicidal or homicidal ideations intent or plan. Patient denies any auditory or visual hallucinations. Patient denied any red flag symptoms related to pain. Objective - Exam General: Well-developed, well-nourished, no acute distress HEENT: Normocephalic, and atraumatic Neck: Supple, no neck swelling Psychiatric: Appropriate mood, and affect DIRECTOR OF RESEARCH AND DEVELOPMENT: No noticeable focal neurological deficits Musculoskeletal: Upper extremity: Normal strength, and range of motion. Sensation grossly intact Lower extremity: Normal strength, and decreased range of motion secondary to pain Lumbar spine: Paravertebral tenderness: positive . healed lumbar scar. Lumbar facet load test : positive Strait leg raising test: not done Sacroiliac joint tenderness: Positive Thigh thrust test: Positive SI joint compression test: Positive Fabere test: Positive - Constitutional Constitutional Comment(s): 13 point review of symptoms negative except as mentioned in the history of present illness. 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 Diagnoses, prognosis, and multiple treatment options including but not limited to physical therapy, interventional therapy, adjunct medication therapy, narcotic medication, and surgical options were discussed with the patient. And all questions were answered to the patient's satisfaction. #2 Opioid agreement: Patient was discussed regarding the medication side effects, and complications associated with narcotic use. Also counsels against driving while using narcotic medications, and also against using any alcohol or illicit or recreational drugs in conjunction with opioids. Patient understood the consequences. Patient has signed narcotic agreement and was again asked to re-read this document and will be given a copy to take home if requested. This document outlines the policies of the [facility]. It specifically counsels the patient to not misuse, overuse, abuse, divert, or sell medications, and to take them as prescribed by only one healthcare provider and store the medications in a safe and preferably locked location. This document also counsels against driving while using narcotic medications and also against using any alcohol or illicit or recreational drugs in conjunction with opioids. The patient verbalized understanding to staff that lack of compliance with any of the above will likely result in failure to renew narcotic prescriptions, possible discharge from the clinic, and possible legal ramifications thereafter. #3 Patient was counseled on importance of regular exercise. Including shruthi chi, aerobic exercises as tolerated. Which helps for chronic pain, and overall well- being. Patient also counseled regarding importance of weight control rolling chronic pain, and overall other health issues. #4 consultation: none #5 investigations: MAPS , urine drug test- reviewed #6 interventional procedures: bilateral sacroiliac joint injection, and lumbar trigger point injection. Procedure, complications, and alternatives discussed with the patient. And answered all the questions. #7 medications #1 Neurontin 300 mg by mouth every 8 hours dispense 90 with no refill #2 Tylenol 500 mg by mouth by mouth every 8 hours dispense 90, total dose of Tylenol not more than 2 g per day Medication side effects, complications, long-term consequences discussed with the patient. Patient recommended to contact the pain clinic if noticed any issues with given medications. #8 morphine milligrams equivalents dose ( MME) per day: 0 from the pain clinic. but patient maps showed he was given 6 days worth of Percocet by Dr. staci Palafox.. but patient and her family refused to admit that Getting any narcotic medications from anyone and that are not aware with Dr. Palafox #9 disposition scheduled to follow up with pain clinic in [ ] . I have spent 20minutes with this patient. Including but not limited to: uced-dw-peto time, on physical examination, electronic medical record review, counseling, and documentation. Time with Patient: Less than 30 PQRS Measure Charge Sheet Measure #130: Documentation of Current Meds in Medical Chart: Patient's medica tions documented in chart (White) Measure #226: Tobacco Use: Screen & Cessation Intervention: Pt not a tobacco user Measure #111: Pneumonia Vaccination: Pneumococcal vaccine administered or previously received Measure #47: Advance Care Plan: Advance care planning discussed & documented, plan or surrogate given Measure #412: Opioid Treatment Agreement: Documented signed opioid trtmnt agreemnt min once during opioid trtmnt Measure #408: Opioid Therapy Follow-up Evaluation: Patient had f/u eval minimum every 3 months during opioid therapy Measure #317: Preventitive Care & Scrn High Bld Press & F/U: Pre-hypertensive or hypertensive BP documented, pt will f/u with PCP Measure #128: Body Mass Index (BMI) Screening & Follow-up: BMI documented within normal parameters (he was referred by ) Measure #131: Pain Assessment & Follow-up: Pain positive & plan documented ( he had surgery in his right) Measure #431: Unhealthy Alcohol Use Preventative Care & Scrn: Patient not identified as an unhealthy alcohol user - Pain Location Back Non-Pharmacological Interventions: Inactivity, Position/Reposition PQRS Narrative: Smoking Status Former smoker Narcotic Agreement Date Signed 05/19/20 Pain Intensity [Back] 7 Scale Used Numeric (1 - 10) Hx Alcohol Use (MH) No Home Medications: Ambulatory Orders Omeprazole [PriLOSEC] 20 mg PO DAILY 11/24/18 Pravastatin Sodium [Pravachol] 40 mg PO HS 02/27/19 predniSONE 10 mg PO Q48H 10/06/19 allopurinoL [Zyloprim] 100 mg PO AC-SUPPER 10/09/19 Carvedilol [Coreg] 6.25 mg PO BID 11/30/19 Aspirin [Adult Low Dose Aspirin EC] 81 mg PO DAILY 03/23/20 Gabapentin 300 mg PO BID 01/30/21 Calcium Carbonate/Vitamin D3 [Calcium 600 mg-Vit D3 5 mcg (200 unit)] 1 tab PO DAILY 06/05/21 INSULIN ASPART (NovoLOG) [NovoLOG (formulary)] See Protocol SQ TID-W/MEALS 06/05/21 Insulin Detemir (Levemir) [Levemir] 0 unit SQ DIRECTED 06/05/21 Tamsulosin HCl [Flomax] 0.4 mg PO W/SUPPER 06/05/21 predniSONE 5 mg PO Q48H 06/05/21 Alpha Lipoic Acid 50 mg PO DAILY 08/23/21 Clopidogrel [Plavix] 75 mg PO DAILY 08/23/21 Gabapentin 600 mg PO HS 08/23/21 Nf-Tumeric 1 tab PO DAILY 08/23/21 Torsemide [Demadex] 10 mg PO DAILY 08/23/21 Controlled Substance Measures - Controlled Substance Measures Is patient prescribed a controlled substance at discharge?: Yes When asked, does pt state using other controlled substances?: Yes If prescribed controlled substance>3 days was MAPS reviewed?: Yes If Rx opioid, was Start Talking consent form obtained?: Yes If opioid is for acute pain is fill amount 7 days or less?: No Was information provided regarding opioid addiction?: Yes
== END ==
LOC: PNWHC3 10:07
DX: M96.1 Postlaminectomy syndrome, not elsewhere classified (principal); M47.816 Spondylosis without myelopathy or radiculopathy, lumbar region; M79.18 Myalgia, other site; M53.3 Sacrococcygeal disorders, not elsewhere classified; G89.4 Chronic pain syndrome; Z87.891 Personal history of nicotine dependence; Z88.8 Allergy status to other drugs, medicaments and biological substances; Z88.1 Allergy status to other antibiotic agents; Z91.041 Radiographic dye allergy status; Z91.048 Other nonmedicinal substance allergy status; Z91.013 Allergy to seafood
CPT/HCPCS: 99211

== ENCOUNTER 2021-10-04 13:44 | Inpatient (IN) | payer MEDICARE, BC ==
[2021-10-04] MEDS ORDERED: SODIUM CHLORIDE 0.9% 1,000 ML IV STA (14:37)
[2021-10-04] MEDS ORDERED: ONDANSETRON 4 MG/2 ML VIAL IVP STA (14:37)
--- NOTE | 2021-10-04 14:59 | ED ---
Chest Pain HPI - General Chief Complaint: Chest Pain Stated Complaint: chest pain Time Seen by Provider: 10/04/21 14:03 Source: patient Mode of arrival: wheelchair Limitations: no limitations - History of Present Illness Initial Comments: 81-year-old male with multiple medical conditions including CVA, diabetes, high blood pressure, hypertension and cardiomyopathy with AICD placement who presents emergency Department with multiple complaints. Patient reports to left-sided chest pain without radiation. Has associated shortness of breath and dry cough. Also reports to nausea and vomiting with lower abdominal pain. Admits to abdominal cramping with diarrhea. Denies any black or bloody stools. No ripping or tearing sensation to his back. No numbness, tingling or weakness in his extremities. Denies any fevers. No sick contacts. Patient is vaccinated against Covid. Admits that he was just placed on [place] for pain control. Patient does have chronic back pain. Denies any changes in his back pain. Denies eating any tainted foods. No recent antibiotic use. No other alleviating, precipitating or modifying factors - Related Data Home Medications Medication Instructions Recorded Confirmed Omeprazole [PriLOSEC] 20 mg PO QAM 11/24/18 10/18/21 Pravastatin Sodium [Pravachol] 40 mg PO HS 02/27/19 10/18/21 predniSONE 10 mg PO Q48H 10/06/19 10/18/21 allopurinoL [Zyloprim] 100 mg PO DAILY 10/09/19 10/18/21 Carvedilol [Coreg] 6.25 mg PO BID 11/30/19 10/18/21 Aspirin [Adult Low Dose Aspirin EC] 81 mg PO DAILY 03/23/20 10/18/21 Calcium Carbonate/Vitamin D3 1 tab PO DAILY 06/05/21 10/18/21 [Calcium 600 mg-Vit D3 5 mcg (200 unit)] INSULIN ASPART (NovoLOG) [NovoLOG See Protocol SQ TID-W/MEALS PRN 06/05/21 10/18/21 (formulary)] Insulin Detemir (Levemir) [Levemir] 10 unit SQ HS 06/05/21 10/18/21 Tamsulosin HCl [Flomax] 0.4 mg PO W/SUPPER 06/05/21 10/18/21 predniSONE 5 mg PO Q48H 06/05/21 10/18/21 Clopidogrel [Plavix] 75 mg PO DIRECTED 08/23/21 10/18/21 Gabapentin 300 mg PO TID 08/23/21 10/18/21 Torsemide [Demadex] 10 mg PO DAILY 08/23/21 10/18/21 Previous Rx's Medication Instructions Recorded Pantoprazole [Protonix] 40 mg PO AC-BRKFST #30 tab 10/06/21 Allergies Allergy/AdvReac Type Severity Reaction Status Date / Time amlodipine Allergy swelling Verified 10/18/21 09:25 of feet doxycycline Allergy Anaphylaxis Verified 10/18/21 09:25 Iodinated Contrast Media Allergy Anaphylaxis Verified 10/18/21 09:25 [Iodinated Contrast- Oral and IV Dye] iodine Allergy Anaphylaxis Verified 10/18/21 09:25 metronidazole [From Flagyl] Allergy Rash/Hives Verified 10/18/21 09:25 shrimp Allergy Rash/Hives Verified 10/18/21 09:25 acarbose AdvReac Abdominal Verified 10/18/21 09:25 Pain adhesive tape AdvReac SKIN PULLS Verified 10/18/21 09:25 OFF " amoxicillin trihydrate AdvReac Nausea & Verified 10/18/21 09:25 [From Augmentin] Vomiting potassium clavulanate AdvReac Nausea & Verified 10/18/21 09:25 [From Augmentin] Vomiting Review of Systems ROS Statement: Those systems with pertinent positive or pertinent negative responses have been documented in the HPI. ROS Other: All systems not noted in ROS Statement are negative. EKG Findings - EKG Comments: EKG Findings:: EKG demonstrates atrial sensed ventricularly paced rhythm. Rate of 82. When necessary interval 140. QRS 152. QTC of 486. Pacemaker captures appropriately. No acute ST segment elevations or depressions Past Medical History Past Medical History: CVA/TIA, Diabetes Mellitus, GERD/Reflux, Hearing Disorder / Deafness, Hyperlipidemia, Hypertension, Musculoskeletal Disorder, Pneumonia, Renal Disease, Rheumatoid Arthritis (RA), Thyroid Disorder Additional Past Medical History / Comment(s): LOW IRON LEVELS AND FATIGUE. Hx CMP w/ BiVICD. 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 chronic back pain, recent adm. due to CVA, hx. chronic elevated white count, anemia per spouse History of Any Multi-Drug Resistant Organisms: None Reported Past Surgical History: AICD, Appendectomy, Back Surgery, Heart Catheterization, Joint Replacement, Tonsillectomy Additional Past Surgical History / Comment(s): Biventricular AICD placement/[employer], battery change r/t recall, Back surgery 6, colonoscopy, past hx of pain clinic procedure, cataract sx, Oral sx "to smooth down bones in mouth." 01/18/20 RT TOTAL KNEE; 02/24/20 Repair Rt knee tendon. Past Anesthesia/Blood Transfusion Reactions: No Reported Reaction Additional Past Anesthesia/Blood Transfusion Reaction / Comment(s): blood transfusion-no reaction; BP was high when came in for his 1st pain procedure- procedure was canceled- states no problem since. Type of Cardiac Device: AICD Device Placement Date:: 2016 Past Psychological History: No Psychological Hx Reported Smoking Status: Former smoker Past Alcohol Use History: Occasional Past Drug Use History: None Reported - Past Family History Father History Unknown: Yes Mother Family Medical History: Hyperlipidemia, Hypertension, Myocardial Infarction ([place]) Additional Family Medical History / Comment(s): . General Exam Limitations: no limitations General appearance: alert, in no apparent distress Head exam: Present: atraumatic, normocephalic, normal inspection Eye exam: Present: normal appearance, PERRL, EOMI. Absent: scleral icterus, conjunctival injection, periorbital swelling ENT exam: Present: normal exam, mucous membranes moist Neck exam: Present: normal inspection. Absent: tenderness, meningismus, lymphadenopathy Respiratory exam: Present: normal lung sounds bilaterally. Absent: respiratory distress, wheezes, rales, rhonchi, stridor Cardiovascular Exam: Present: regular rate, normal rhythm, normal heart sounds. Absent: systolic murmur, diastolic murmur, rubs, gallop, clicks GI/Abdominal exam: Present: soft, normal bowel sounds. Absent: distended, tenderness, guarding, rebound, rigid Extremities exam: Present: normal inspection, full ROM, normal capillary refill. Absent: tenderness, pedal edema, joint swelling, calf tenderness Back exam: Present: normal inspection Neurological exam: Present: alert, oriented X3, CN II-XII intact Psychiatric exam: Present: normal affect, normal mood Skin exam: Present: warm, dry, intact, normal color. Absent: rash Course Vital Signs 10/04/21 10/04/21 10/04/21 13:54 15:00 16:00 Temperature 98.2 F Pulse Rate 95 77 80 Respiratory 22 16 18 Rate Blood Pressure 120/64 146/80 147/64 O2 Sat by Pulse 98 96 95 Oximetry 10/04/21 10/04/21 10/04/21 17:00 18:00 20:37 Temperature Pulse Rate 80 79 82 Respiratory 20 18 16 Rate Blood Pressure 143/66 152/68 132/80 O2 Sat by Pulse 95 95 94 L Oximetry Chest Pain MDM - MDM Upon arrival patient is placed into room 4. A thorough history and physical exam was performed. IV is established. Patient was given 4 mg of Zofran for his nausea and started on gentle fluids at 50 mL per hour. Labs are conducted. Patient swab for Covid. Chest x-rays performed. Laboratory studies are reviewed. White count of 17.9. Glucose 62. Patient is given an amp of dextrose. Troponin 0.202. Covid is negative. Chest x-ray is performed which demonstrates no acute process. Recommended admission for elevated troponin and initially a heparin drip was ordered. Soak with Dr. Back who requested that a PCR Covid test be sent and the patient change to Lovenox subcu daily. Also requesting CT of the chest abdomen and pelvis which does not demonstrate any acute process. Patient will be admitted to trend his troponins with cardio evaluation. Patient remained in stable condition awaiting a bed on the floor Disposition Clinical Impression: Chest pain, Nausea and vomiting, NSTEMI (non-ST elevated myocardial infarction), Hypoglycemia Disposition: ADMITTED IP TO THIS HOSP Condition: Serious Is patient prescribed a controlled substance at d/c from ED?: No Decision to Admit Reason: Admit from EC Decision Date: 10/04/21 Decision Time: 16:40
[2021-10-04 15:08] LABS: Basophils # (A) 0.1 k/uL (0-0.2); Basophils % (A) 1 %; Eosinophils # (A) 0.8 k/uL (0-0.7); Eosinophils % (A) 4 %; HGB 15.4 gm/dL (13.0-17.5); Lymphocytes # (A) 5.9 k/uL (1.0-4.8); Lymphocytes % (A) 33 %; MCH 31.6 pg (25.0-35.0); MCHC 33.5 g/dL (31.0-37.0); MCV 94.2 fL (80.0-100.0); Mean Platelet Volume 8.3; Monocytes % (A) 5 %; Neutrophils # (A) 9.6 k/uL (1.3-7.7); Neutrophils % (A) 53 %; Platelet Count 324 k/uL (150-450); RBC 4.89 m/uL (4.30-5.90); RDW 13.9 % (11.5-15.5); WBC 17.9 k/uL (3.8-10.6)
[2021-10-04 15:20] LABS: Albumin 3.6 g/dL (3.5-5.0); Calcium 9.4 mg/dL (8.4-10.2); Magnesium 1.9 mg/dL (1.6-2.3); Potassium 4.4 mmol/L (3.5-5.1); Total Bilirubin 0.7 mg/dL (0.2-1.3); Total Protein 6.6 g/dL (6.3-8.2)
[2021-10-04 15:29] LABS: INR 0.9 (<1.2); Prothrombin Time 9.7 sec (9.0-12.0)
--- NOTE | 2021-10-04 15:43 | XR ---
EXAMINATION TYPE: XR chest 2V DATE OF EXAM: 10/04/2021 COMPARISON: Chest x-ray 06/05/2021, CT 06/05/2021 HISTORY: Chest pain TECHNIQUE: Frontal and lateral views of the chest are obtained. FINDINGS: There is no focal air space opacity, pleural effusion, or pneumothorax seen. The cardiac silhouette size is stable accounting for differences in technique, prominence of the mediastinum is c hronic, there are prominent epicardial fat pads. There is a generator in left pectoral region, leads are present in the coronary sinus, right atrium and right ventricle as on prior exam. The osseous st ructures are intact. IMPRESSION: No acute cardiopulmonary process.
[2021-10-04] MEDS ORDERED: ASPIRIN 81 MG PO STA (15:45)
[2021-10-04] MEDS ORDERED: HEPARIN SODIUM 1,000 UN/ML (10ML VL) IV PRN (15:46)
[2021-10-04] MEDS ORDERED: HEPARIN SODIUM 1,000 UN/ML (10ML VL) IV ONE (15:46)
[2021-10-04] MEDS ORDERED: HEPARIN SOD,PORK IN 0.45% NACL 25,000 UNIT in 0.45% NACL 1 250ML.BAG IV SCH (16:00)
[2021-10-04] MEDS ORDERED: DEXTROSE 50% SYRINGE 50 ML IVP STA (16:42)
[2021-10-04] MEDS ORDERED: SODIUM CHLORIDE 0.9% 1,000 ML IV SCH (16:45)
[2021-10-04] MEDS ORDERED: NALOXONE 0.4 MG/ML 1 ML VIAL IV PRN (16:45)
[2021-10-04] MEDS ORDERED: ONDANSETRON 4 MG/2 ML VIAL IVP PRN (16:45)
[2021-10-04] MEDS ORDERED: CLOPIDOGREL 75 MG TAB PO SCH (18:15)
[2021-10-04] MEDS: ENOXAPARIN 40 MG/0.4 ML SYRINGE SQ SCH (18:17)
--- NOTE | 2021-10-04 19:01 | HP ---
HISTORY AND PHYSICAL DATE OF SERVICE: 10/04/2021 CHIEF COMPLAINTS: Chest pain, nausea, vomiting, diarrhea. HISTORY OF PRESENT ILLNESS: This 81-year-old gentleman with a past medical history of multiple medical problems, including CVA, TIA, diabetes mellitus, GERD, history of hypertension, hyperlipidemia, history of hypothyroidism, history of AICD, history of apparent low ejection fraction, chronic CHF, being followed by Dr. Doss in the outpatient setting, was not feeling well over the past several days; at least 2 or 3 days. The patient was not feeling well and the patient also had some chest pain which was mostly left-sided. Patient also had some nausea, vomiting and significant diarrhea. The patient came to [facility] and was admitted for further evaluation and treatment. The COVID-19 testing was negative, but the patient had multiple abnormalities, including elevated WBC, elevated creatinine indicating some dehydration, and elevated troponin up to 0.202. Patient had some amount of chronic elevation of troponin, but this is definitely significantly more. There is no history of any fever, rigor or chills at this time. PAST MEDICAL HISTORY: History of diabetes mellitus, type 2, history of hypertension, hyperlipidemia, history of musculoskeletal disorder, history of pneumonia, history of rheumatoid arthritis, multiple other medical issues. HOME MEDICATIONS: Reviewed. They include Percocet, Levemir, NovoLog, Demadex, Flomax, prednisone, Pravachol, Prilosec, Glucophage, Plavix, zyloprim, Coreg, calcium with vitamin D. Doses are reviewed. Other medications are reviewed. ALLERGIES: MULTIPLE. AMLODIPINE, DOXYCYCLINE, IODINATED CONTRAST DYES, FLAGYL, SHRIMP, [QAMARKER] ADHESIVE TAPES, AMOXICILLIN. FAMILY HISTORY: History of hypertension, hyperlipidemia, history of myocardial infarction. SOCIAL HISTORY: History of alcohol. No current smoking. Previous history of smoking. REVIEW OF SYSTEMS: ENT: Diminished hearing. Diminished vision. CARDIOVASCULAR SYSTEM: As mentioned earlier. RESPIRATORY SYSTEM: As mentioned earlier. GI: As mentioned earlier. : No dysuria. NERVOUS SYSTEM: No numbness, weakness. ALLERGY/IMMUNOLOGY: As mentioned earlier. HEMATOLOGY/ONCOLOGY: No history of anemia. ENDOCRINE: As mentioned earlier. CONSTITUTIONAL: As mentioned earlier. DERMATOLOGY: Negative. RHEUMATOLOGY: Negative. PSYCHIATRY: As mentioned earlier. PHYSICAL EXAMINATION: Patient alert and oriented x3. Pulse is 95, blood pressure 120/64, respiration 22, temperature 98.2, pulse ox 98% on room air. HEENT: Conjunctivae normal. Oral mucosa moist. NECK: No jugular venous distention. No carotid bruit. No lymph node enlargement. CARDIOVASCULAR: S1, S2 muffled. RESPIRATION: Breath sounds diminished at the bases. A few scattered rhonchi. ABDOMEN: Soft. Obese. Non-tender. No mass palpable. No guarding or rigidity. No ascites. LEGS: No edema. No swelling. NERVOUS SYSTEM: Higher functions as mentioned earlier. Moves all 4 limbs. No focal motor or sensory deficit. LYMPHATICS: No lymph node palpable in neck, axillae or groin. SKIN: No ulcer, rash, bleeding. JOINTS: No active deforming arthropathy. LABS: WBC 17.2, hemoglobin 15.4, sodium 139, potassium 3.4. Creatinine is 1.39. Troponin 0.202. Otherwise, the chest x-ray, which was reviewed personally by me, showed no acute abnormality, probably some minimal increased bronchovascular markings. The EKG in the ER, reviewed personally by me, showed paced rhythm. ASSESSMENT: 1. Chest pain, nausea, vomiting, diarrhea; possible acute gastroenteritis. Rule out acute viral syndrome and COVID-19. 2. Dehydration with acute renal failure with acute tubular necrosis. 3. Increased white count. 4. Troponin elevated at 0.202. Rule out acute ogw-FK-twnezxi-elevation myocardial infarction. 5. Hypoglycemia. 6. History of cerebrovascular accident, transient ischemic attack. 7. Diabetes mellitus, type 2, history. 8. Gastroesophageal reflux disease. 9. Hard of hearing. 10.Hypertension. 11.Hyperlipidemia. 12.History of degenerative joint disease. 13.History of pneumonia. 14.History of rheumatoid arthritis. 15.History of hyp thyroidism. 16.History of iron deficiency anemia. 17.History of cardiomyopathy with biventricular AICD. 18.History of interstitial lung disease and rheumatoid lung. 19.History of gout. 20.History of cerebrovascular accident. 21.History of West Nile virus/Lyme disease. 22.History of AICD. 23.History of appendectomy. 24.History of back surgery, degenerative joint disease. 25.History of cataracts. 26.Remote history of nicotine dependence. 27.FULL CODE. RECOMMENDATIONS AND DISCUSSION: In this 81-year-old gentleman who presented with multiple complex medical issues, we will monitor the patient closely. I would provide symptomatic treatment with IV fluids. Will check the COVID-19 PCR testing. Also check D-dimer; if it is elevated, I would also recommend a V/Q scan, and CT scan of the chest without any contrast also may be done along with CT of the abdomen and pelvis. The overall prognosis is guarded because of multiple complex medical issues, which I discussed with the patient and his at the bedside, who understand and agree. Further recommendations to follow. A copy of this dictation is being forwarded to Dr. Madalyn Doss, who is the primary physician. MMODL / IJN: [id number] /
--- NOTE | 2021-10-04 19:08 | CT ---
EXAMINATION TYPE: CT ChestAbdPelvis wo con DATE OF EXAM: 10/04/2021 COMPARISON: Chest CT scan 05/21/2019. Abdomen CT scan 05/31/2016 HISTORY: Abdominal pain, leukocytosis. CT DLP: 950.9 mGycm Automated exposure control for dose reduction was used. Images obtained from the thoracic inlet to the floor the pelvis without contrast. There is some mild interstitial infiltrate and subsegmental atelectasis at the posterior lung bases. There is no pleural effusion. Heart is borderline enlarged. There is no pericardial effusion. There i s coronary artery calcification. Thoracic aorta is atheromatous. There are no hilar masses. There is no significant mediastinal adenopathy. There are a few paratracheal lymph nodes less than 1 cm. There are calcified small gallstones. Liver shows no focal defect. Spleen is intact. There is no panc reatic mass. The stomach is intact. There is no adrenal mass. Kidneys have normal size. There is no hydronephrosis. There is metallic ova l-shaped density in the posterior right:. There is no retroperitoneal adenopathy. Abdominal aorta is atheromatous. Bladder distends smoothly. T here is no inguinal hernia. There are numerous sigmoid diverticula. There is no diverticulitis. There is no evidence of thickened appendix. Appendix not clearly seen. Terminal ileum appears normal. Ther e is no sign of a bowel obstruction. There is multilevel posterior fusion surgery in the lumbar spine. There is multilevel spondylotic tammy nges in the thoracic and lumbar spine. Sternum is intact. The bony pelvis is intact. There is no evid ence of hip fracture. There is no mesenteric edema. There is no ascites or free air. IMPRESSION: Extensive posterior fusion surgery in the spine. New graft cholelithiasis. Mild subsegmental atelectasis at the lung bases. This appears improved compared to old exam. No acute abnormality within the abdomen pelvis. Sigmoid diverticulosis.
[2021-10-04 19:26] LABS: C Reactive Protein 3.5 mg/dL (<1.0)
[2021-10-04] MEDS: GABAPENTIN 300 MG CAP PO SCH (19:30)
[2021-10-04] MEDS: INSULIN DETEMIR (LEVEMIR) 100 UNIT/ML SYR SQ SCH (20:32)
[2021-10-04] MEDS: carvediloL 6.25 MG TAB PO SCH (20:32)
[2021-10-04] MEDS: TEMAZEPAM 15 MG CAP PO PRN (20:32)
[2021-10-04] MEDS: PRAVASTATIN SODIUM 40 MG TAB PO SCH (20:32)
[2021-10-04 20:35] LABS: Glucose,Whole Blood 206 mg/dL (75-99)
[2021-10-04 21:05] LABS: Glucose,Whole Blood 186 mg/dL (75-99)
[2021-10-05] MEDS: GABAPENTIN 300 MG CAP PO SCH ×3 (04:07→21:57)
[2021-10-05 06:02] LABS: Glucose,Whole Blood 91 mg/dL (75-99)
[2021-10-05] MEDS: carvediloL 6.25 MG TAB PO SCH ×2 (06:37→17:26)
[2021-10-05] MEDS: PANTOPRAZOLE 40 MG TABLET PO SCH (06:37)
[2021-10-05] MEDS ORDERED: PANTOPRAZOLE 40 MG TABLET PO SCH (07:30)
[2021-10-05 08:07] LABS: Calcium 8.9 mg/dL (8.4-10.2); Potassium 4.8 mmol/L (3.5-5.1)
[2021-10-05 08:08] LABS: INR 0.9 (<1.2); Prothrombin Time 9.9 sec (9.0-12.0)
--- NOTE | 2021-10-05 08:43 | CDI ---
Documentation Clarification Form Date: 10/05/2021 08:30:37 AM From: Yelena Almonte RN CCDS Admit Date: 10/04/2021 04:47:00 PM Patient Name: Mark Diaz Visit Number: [id number] Discharge Date: ATTENTION: The Clinical Documentation Specialists (CDI) and [facility] Coding Staff appreciate your assistance in clarifying documentation. Please respond to the clarification below the line at the bottom and electronically sign. The CDI & [facility] Coding staff will review the response and follow-up if needed. Please note: Queries are made part of the Legal Health Record. If you have any questions, please contact the author of this message via ITS. Dr. Macy Back Your patient has the documented diagnosis of unspecified CHF 10/04, H&P. Additional information regarding the type and acuity of CHF is requested. History/Risk Factors: [id number] presents to the ED for chest pain, nausea, vomiting and diarrhea. Medical History: H&P, 10/04. Chronic CHF, DM & HTN. Clinical Indicators: VS/Pulse OX 10/04: B/P 120/64, HR 95, Temp 98.2, RR 22, SpO2 98% ra BNP 10/04: 2210 Echocardiogram Results:06/05/21 Moderate concentric left ventricular hypertrophy. Left ventricular systolic function is normal with, an EF between 55-60%. LA severely dilated, Mild aortic regurgitation. Mitral valve leaflets are mildly thickened. Mild mitral regurgitation. Mild tricuspid regurgitation present. Chest X Ray 10/04: No acute cardiopulmonary process. Home Medications: H&P, 10/04. Demadex and Coreg Treatment: 10/04 to current Coreg AC-BID. In your professional opinion, can you please clarify the [acuity and type] of CHF if known? [ ] Chronic Diastolic Heart Failure (preserved EF) [ ] Other, please specify [ ] Unable to determine (Template Last Revised: December 2020) Chronic Diastolic Heart Failure (preserved EF) MTDD
[2021-10-05 09:29] LABS: HCT 41.6 % (39.0-53.0); HGB 13.5 gm/dL (13.0-17.5); MCH 31.2 pg (25.0-35.0); MCHC 32.4 g/dL (31.0-37.0); MCV 96.3 fL (80.0-100.0); Mean Platelet Volume 8.2; Platelet Count 262 k/uL (150-450); RBC 4.32 m/uL (4.30-5.90); RDW 13.9 % (11.5-15.5); WBC 15.1 k/uL (3.8-10.6)
[2021-10-05] MEDS: CALCIUM CARB-VIT D 500 MG-5 MCG TAB PO SCH (09:43)
[2021-10-05] MEDS: ENOXAPARIN 40 MG/0.4 ML SYRINGE SQ SCH ×2 (09:43→09:52)
[2021-10-05] MEDS: allopurinoL 100 MG TAB PO SCH (09:43)
--- NOTE | 2021-10-05 11:25 | P.CRDCN ---
History of Present Illness Consult date: 10/05/21 History of present illness: HISTORY OF PRESENT ILLNESS: This is a 81-year-old male with a past medical history significant for hypertension, hyperlipidemia, aortic insufficiency, carotid disease status post left carotid revascularization, and biventricular AICD.. Patient follows in the office with Dr. Narvaez. We have been asked to see the patient in consultation for chest pain. Patient examined at the bedside. Patient states he presented to the hospital with a chief complaint of diarrhea. He states he has been having diarrhea for the past 2-3 days. Patient currently states his diarrhea has resolved. He does report having some chest discomfort has been constant over the past 1.5 days. He states the pain is worse with deep inspiration. He is unsure if the pain was worse with movement or chest wall to palpation. He denied any radiation of the pain. At the time of my examination, the patient denied any chest pain or discomfort. EKG reveals paced rhythm Chest xray negative for acute process Laboratory data: WBC 15.1. Hemoglobin 13.5. Platelet count 262. Sodium 140. Potassium 4.8. BUN 31. Creatinine 1.76. Troponin 0.202. 0.191. 0.193. CT abdomen and pelvis: Mild subsegmental atelectasis at lung bases. This appears improved compared to old exam. No acute abnormality within the abdomen and pelvis. Sigmoid diverticulosis. Extensive posterior fusion surgery in the spine. Most recent echocardiogram obtained in May 2021 revealed ejection fraction 55- 60%, mild mitral regurgitation, and mild tricuspid regurgitation. He underwent cardiac catheterization in March 2017 revealing minimal coronary artery disease. REVIEW OF SYSTEMS: At the time of my exam: CONSTITUTIONAL: Denies fever or chills. HEENT: Denies blurred vision, vision changes, or eye pain. Denies hemoptysis CARDIOVASCULAR: Denies chest pain. Denies orthopnea. Denies PND. Denies palpitations RESPIRATORY: Denies shortness of breath. GASTROINTESTINAL: Denies abdominal pain. Denies nausea or vomiting. HEMATOLOGIC: Denies bleeding disorders. GENITOURINARY: Denies any blood in urine. SKIN: Denies pruitis. Denies rash. PHYSICAL EXAM: VITAL SIGNS: Reviewed. GENERAL: Well-developed in no acute distress. HEENT: Head is normocephalic. Pupils are equal, round. Sclerae anicteric. Mucous membranes of the mouth are moist. Neck supple. No JVD or thyromegaly LUNGS: Respirations even and unlabored. Lungs essentially clear to auscultation bilaterally. HEART: Regular rate and rhythm. S1 and S2 heard. ABDOMEN: Soft. Nondistended. Nontender. EXTREMITIES: Normal range of motion. No clubbing or cyanosis. Peripheral pulses intact. No lower extremity edema NEUROLOGIC: Awake and alert. Oriented x 3. ASSESSMENT: Diarrhea x 2-3 days, resolved Chest pain, atypical, resolved Acute kidney injury Chronic kidney disease Abnormal troponins, acute coronary syndrome ruled out Hypertension Hyperlipidemia History of aortic insufficiency Carotid disease status post left carotid revascularization History of biventricular AICD PLAN: An acute coronary event has been ruled out Resume home cardiac medications Obtain 2D echo to assess cardiac structure and function If echo does not reveal any significant abnormalities, the patient may be discharged home today and follow up outpatient with Dr. Narvaez Nurse practitioner note has been reviewed by physician. Signing provider agrees with the documented findings, assessment, and plan of care. Past Medical History Past Medical History: CVA/TIA, Diabetes Mellitus, GERD/Reflux, Hearing Disorder / Deafness, Hyperlipidemia, Hypertension, Musculoskeletal Disorder, Pneumonia, Renal Disease, Rheumatoid Arthritis (RA), Thyroid Disorder Additional Past Medical History / Comment(s): LOW IRON LEVELS AND FATIGUE. Hx CMP w/ BiVICD. 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 chronic back pain, recent adm. due to CVA, hx. chronic elevated white count, anemia per spouse History of Any Multi-Drug Resistant Organisms: None Reported Past Surgical History: AICD, Appendectomy, Back Surgery, Heart Catheterization, Joint Replacement, Tonsillectomy Additional Past Surgical History / Comment(s): Biventricular AICD placement/[employer], battery change r/t recall, Back surgery 6, colonoscopy, past hx of pain clinic procedure, cataract sx, Oral sx "to smooth down bones in mouth." 01/18/20 RT TOTAL KNEE; 02/24/20 Repair Rt knee tendon. Past Anesthesia/Blood Transfusion Reactions: No Reported Reaction Additional Past Anesthesia/Blood Transfusion Reaction / Comment(s): blood whittaker sfusion-no reaction; BP was high when came in for his 1st pain procedure- procedure was canceled- states no problem since. Type of Cardiac Device: AICD Device Placement Date:: 2016 Past Psychological History: No Psychological Hx Reported Smoking Status: Former smoker Past Alcohol Use History: Occasional Additional Past Alcohol Use History / Comment(s): STARTED SMOKING AT AGE 16, SMOKED 1- 2 1/2 PPD, QUIT 1980 EST. Occasional use of alcohol Past Drug Use History: None Reported - Past Family History Father History Unknown: Yes Mother Family Medical History: Hyperlipidemia, Hypertension, Myocardial Infarction ([place]) Additional Family Medical History / Comment(s): . Medications and Allergies Home Medications Medication Instructions Recorded Confirmed Type Omeprazole [PriLOSEC] 20 mg PO DAILY 11/24/18 10/04/21 History Pravastatin Sodium [Pravachol] 40 mg PO HS 02/27/19 10/04/21 History predniSONE 10 mg PO Q48H 10/06/19 10/04/21 History allopurinoL [Zyloprim] 100 mg PO DAILY 10/09/19 10/04/21 History Carvedilol [Coreg] 6.25 mg PO BID 11/30/19 10/04/21 History Aspirin [Adult Low Dose Aspirin EC] 81 mg PO DAILY 03/23/20 10/04/21 History Calcium Carbonate/Vitamin D3 1 tab PO DAILY 06/05/21 10/04/21 History [Calcium 600 mg-Vit D3 5 mcg (200 unit)] INSULIN ASPART (NovoLOG) [NovoLOG See Protocol SQ TID-W/MEALS 06/05/21 10/04/21 History (formulary)] Insulin Detemir (Levemir) [Levemir] 20 unit SQ HS 06/05/21 10/04/21 History Tamsulosin HCl [Flomax] 0.4 mg PO W/SUPPER 06/05/21 10/04/21 History predniSONE 5 mg PO Q48H 06/05/21 10/04/21 History Clopidogrel [Plavix] 75 mg PO DIRECTED 08/23/21 10/04/21 History Gabapentin 300 mg PO Q8H 08/23/21 10/04/21 History Torsemide [Demadex] 10 mg PO DAILY 08/23/21 10/04/21 History INSULIN ASPART (NovoLOG) [NovoLOG 10 unit SQ AC-TID 10/04/21 10/04/21 History (formulary)] oxyCODONE-APAP 5-325MG [Percocet 1 tab PO QID PRN 10/04/21 10/04/21 History 5-325 mg] Allergies Allergy/AdvReac Type Severity Reaction Status Date / Time amlodipine Allergy swelling Verified 10/04/21 16:25 of feet doxycycline Allergy Anaphylaxis Verified 10/04/21 16:25 Iodinated Contrast Media Allergy Anaphylaxis Verified 10/04/21 16:25 [Iodinated Contrast- Oral and IV Dye] iodine Allergy Anaphylaxis Verified 10/04/21 16:25 metronidazole [From Flagyl] Allergy Rash/Hives Verified 10/04/21 16:25 shrimp Allergy Rash/Hives Verified 10/04/21 16:25 acarbose AdvReac Abdominal Verified 10/04/21 16:25 Pain adhesive tape AdvReac SKIN PULLS Verified 10/04/21 16:25 OFF " amoxicillin trihydrate AdvReac Nausea & Verified 10/04/21 16:25 [From Augmentin] Vomiting potassium clavulanate AdvReac Nausea & Verified 10/04/21 16:25 [From Augmentin] Vomiting Physical Exam Vitals: Vital Signs Temp Pulse Pulse Resp BP BP Pulse Ox 10/05/21 08:00 98.7 F 62 18 124/61 100 10/05/21 03:55 98.6 F 60 18 110/57 98 10/04/21 23:20 68 17 102/56 94 L 10/04/21 21:10 98 F 81 18 142/63 92 L 10/04/21 20:37 82 16 132/80 94 L 10/04/21 18:00 79 18 152/68 95 10/04/21 17:00 80 20 143/66 95 10/04/21 16:00 80 18 147/64 95 10/04/21 15:00 77 16 146/80 96 10/04/21 13:54 98.2 F 95 22 120/64 98 Intake and Output 10/04/21 10/05/21 10/05/21 22:59 06:59 14:59 Output Total 335 Balance -335 Output: Urine 335 Other: Voiding Method Urinal Urinal # Voids 1 Weight 92.986 kg 78.5 kg Results 10/05/21 07:13 10/05/21 07:13 Cardiac Enzymes 10/04/21 10/04/21 10/04/21 Range/Units 14:41 14:41 18:24 AST 26 (17-59) U/L Lactate Dehydrogenase (313-618) U/L Troponin I 0.202 H* 0.191 H* (0.000-0.034) ng/mL 10/04/21 10/04/21 Range/Units 18:41 21:15 AST (17-59) U/L Lactate Dehydrogenase 421 (313-618) U/L Troponin I 0.193 H* (0.000-0.034) ng/mL Coagulation 10/04/21 10/04/21 10/05/21 Range/Units 14:41 21:15 07:13 PT 9.7 9.9 (9.0-12.0) sec APTT 19.0 L 24.6 (22.0-30.0) sec CBC 10/04/21 10/05/21 Range/Units 14:41 07:13 WBC 17.9 H 15.1 H (3.8-10.6) k/uL RBC 4.89 4.32 (4.30-5.90) m/uL Hgb 15.4 13.5 (13.0-17.5) gm/dL Hct 46.0 41.6 (39.0-53.0) % Plt Count 324 262 (150-450) k/uL Comprehensive Metabolic Panel 10/04/21 10/05/21 Range/Units 14:41 07:13 Sodium 139 140 (137-145) mmol/L Potassium 4.4 4.8 (3.5-5.1) mmol/L Chloride 108 H 108 H (98-107) mmol/L Carbon Dioxide 21 L 26 (22-30) mmol/L BUN 28 H 31 H (9-20) mg/dL Creatinine 1.39 H 1.76 H (0.66-1.25) mg/dL Glucose 62 L 102 H (74-99) mg/dL Calcium 9.4 8.9 (8.4-10.2) mg/dL AST 26 (17-59) U/L ALT 17 (4-49) U/L Alkaline Phosphatase 60 (38-126) U/L Total Protein 6.6 (6.3-8.2) g/dL Albumin 3.6 (3.5-5.0) g/dL Current Medications Generic Name Dose Route Start Last Admin Trade Name Freq PRN Reason Stop Dose Admin Allopurinol 100 mg 10/05/21 09:00 10/05/21 09:43 Allopurinol 100 Mg Tab PO 100 mg DAILY PATTI Administration Calcium Carbonate 1 each 10/05/21 09:00 10/05/21 09:43 Calcium Carb-Vit D 500 Mg-5 Mcg Tab PO 1 each DAILY PATTI Administration Carvedilol 6.25 mg 10/04/21 21:00 10/05/21 06:37 Carvedilol 6.25 Mg Tab PO 6.25 mg AC-BID PATTI Administration Enoxaparin Sodium 40 mg 10/04/21 17:00 10/05/21 09:52 Enoxaparin 40 Mg/0.4 Ml Syringe SQ Not Given DAILY PATTI Gabapentin 300 mg 10/04/21 19:00 10/05/21 09:44 Gabapentin 300 Mg Cap PO 300 mg Q8H PATTI Administration Insulin Detemir 20 unit 10/04/21 21:00 10/04/21 20:32 Insulin Detemir (Levemir) 100 Unit/Ml Syr SQ 20 unit HS PATTI Administration Naloxone HCl 0.2 mg 10/04/21 16:45 Naloxone 0.4 Mg/Ml 1 Ml Vial IV Q2M PRN Opioid Reversal Ondansetron HCl 4 mg 10/04/21 16:45 Ondansetron 4 Mg/2 Ml Vial IVP Q8HR PRN Nausea And Vomiting Oxycodone/Acetaminophen 1 each 10/04/21 18:07 Oxycodone-Apap 5-325mg 1 Each Tab PO QID PRN Pain Pantoprazole Sodium 40 mg 10/05/21 07:30 10/05/21 06:37 Pantoprazole 40 Mg Tablet PO 40 mg AC-BRKFST PATTI Administration Pravastatin Sodium 40 mg 10/04/21 21:00 10/04/21 20:32 Pravastatin Sodium 40 Mg Tab PO 40 mg HS PATTI Administration Tamsulosin HCl 0.4 mg 10/05/21 17:30 Tamsulosin 0.4 Mg Cap.Er.24h PO W/SUPPER PATTI Temazepam 15 mg 10/04/21 18:08 10/04/21 20:32 Temazepam 15 Mg Cap PO 15 mg HS PRN Administration Insomnia Intake and Output 10/04/21 10/05/21 10/05/21 22:59 06:59 14:59 Output Total 335 Balance -335 Output: Urine 335 Other: Voiding Method Urinal Urinal # Voids 1 Weight 92.986 kg 78.5 kg 10/05/21 07:13 10/05/21 07:13
[2021-10-05 11:30] LABS: Glucose,Whole Blood 177 mg/dL (75-99)
[2021-10-05 15:33] LABS: Lymphocytes # (M) 6.19 k/uL (1.0-4.8); Monocytes # (M) 0.76 k/uL (0-1.0); Neutrophils # (M) 7.85 k/uL (1.3-7.7); Neutrophils % (M) 52 %; Nucleated Red Blood Cells 0 /100 WBC (0-0); Total Cells Counted 100
[2021-10-05 16:18] LABS: Glucose,Whole Blood 139 mg/dL (75-99)
[2021-10-05] MEDS: oxyCODONE-APAP 5-325MG 1 EACH TAB PO PRN ×2 (17:25→21:57)
[2021-10-05] MEDS: SODIUM CHLORIDE 0.9% 1,000 ML IV SCH (17:26)
[2021-10-05] MEDS ORDERED: TAMSULOSIN 0.4 MG CAP.ER.24H PO SCH (17:30)
[2021-10-05 17:53] LABS: Appearance,Urine Clear (Clear); Bilirubin,Urine Negative (Negative); Blood,Urine Negative (Negative); Color,Urine Yellow; Glucose,Urine (UA) Negative (Negative); Ketones,Urine Negative (Negative); Leukocyte Esterase,Urine Negative (Negative); Nitrite,Urine Negative (Negative); Protein,Urine Trace (Negative); Specific Gravity,Urine 1.019 (1.001-1.035); Urobilinogen,Urine <2.0 mg/dL (<2.0)
--- NOTE | 2021-10-05 18:05 | ECHOF ---
Referral Reason:LV function MEASUREMENTS -------- HEIGHT: 182.9 cm WEIGHT: 78.5 kg BP: RVIDd: 2.9 cm (< 3.3) IVSd: 1.5 cm (0.6 - 1.1) LVIDd: 4.5 cm (3.9 - 5.3) LVPWd: 1.5 cm (0.6 - 1.1) IVSs: 1.8 cm LVIDs: 2.7 cm LVPWs: 2.1 cm LAESV Index (A-L): 58.14 ml/m Ao Diam: 2.7 cm (2.0 - 3.7) AV Cusp: 2.0 cm (1.5 - 2.6) LA Diam: 4.1 cm (2.7 - 3.8) MV EXCURSION: 17.658 mm (> 18.000) MV EF SLOPE: 57 mm/s (70 - 150) EPSS: 0.6 cm MV E Valerio: 1.11 m/s MV DecT: 260 ms MV A Valerio: 0.80 m/s MV E/A Ratio: 1.40 AR PHT: 537 ms RAP: 5.00 mmHg RVSP: 36.81 mmHg FINDINGS -------- Sinus rhythm. Pacerwire seen in RV and RA. This was a technically adequate study. The left ventricular size is normal. There is moderate concentric left ventricular hypertrophy. O verall left ventricular systolic function is normal with, an EF between 55 - 60 %. The right ventricle is normal in size. LA is severely dilated >40 ml/m2 The right atrial size is normal. Interatrial and interventricular septum intact. Aortic valve is trileaflet and is mildly thickened. There is moderate aortic regurgitation. There is no evidence of aortic stenosis. Moderate mitral annular calcification present. Moderate mitral regurgitation is present. Mild tricuspid regurgitation present. There is mild pulmonary hypertension. The right ventricular systolic pressure, as measured by Doppler, is 36.81mmHg. There is no pulmonic regurgitation present. The aortic root size is normal. IVC Not well visulized. There is no pericardial effusion. CONCLUSIONS -------- 1. Pacerwire seen in RV and RA. 2. There is moderate concentric left ventricular hypertrophy. 3. Overall left ventricular systolic function is normal with, an EF between 55 - 60 %. 4. LA is severely dilated >40 ml/m2 5. There is moderate aortic regurgitation. 6. Moderate mitral annular calcification present. 7. Moderate mitral regurgitation is present. 8. Mild tricuspid regurgitation present. 9. There is mild pulmonary hypertension. INFORMATION TECHNOLOGY INTERN: Laurie Mcarthur RDCS
[2021-10-05 19:40] VITALS: TEMP 97.6
[2021-10-05 19:41] LABS: Glucose,Whole Blood 134 mg/dL (75-99)
--- NOTE | 2021-10-05 21:07 | PN ---
PROGRESS NOTE DATE OF SERVICE: 10/05/2021 This 81-year-old gentleman who was admitted with chest pain and abdominal discomfort also had continued diarrhea. Patient had renal failure also. No chest pain. No palpitation. Extremely keen on going home at this time. Cardiology saw the patient and a 2D echo with Doppler was done which showed ejection fraction about 50% to 60%. There is moderate mitral regurgitation and moderate mitral annular calcification also. Otherwise, Cardiology has recommended continuing the current medications. No chest pain. No palpitations. No fever. PHYSICAL EXAMINATION: Alert and oriented x3. Pulse is 58, blood pressure 152/65, respiration 17, temperature 97.6, pulse ox 94% on room air. HEENT: Conjunctivae normal. NECK: No jugular venous distention. CARDIOVASCULAR: S1, S2 muffled. RESPIRATION: Breath sounds diminished at the bases. A few rhonchi. No crackles. ABDOMEN: Soft, nontender. NERVOUS SYSTEM: No focal deficit. LABS: WBC 15.1, creatinine is 1.76. ASSESSMENT: 1. Chest pain, nausea, vomiting, diarrhea; possible acute gastroenteritis, viral syndrome. Rule out acute COVID-19 infection. 2. Dehydration with acute renal failure, acute tubular necrosis. 3. Increased white count. 4. Troponin elevated up to 0.202 of undetermined significance. Myocardial infarction ruled out per Cardiology. 5. Hypoglycemia. 6. History of cerebrovascular accident, transient ischemic attack. 7. Diabetes mellitus, type 2 history. 8. Gastroesophageal reflux disease. 9. Hard of hearing. 10.Hypertension. 11.Hyperlipidemia. 12.History of degenerative joint disease. 13.History of pneumonia. 14.History of rheumatoid arthritis. 15.History of hypothyroidism. 16.History of iron deficiency anemia. 17.History of cardiomyopathy with biventricular AICD. 18.Interstitial lung disease and rheumatoid lung. 19.History of gout. 20.History of cerebrovascular accident. 21.History of West Nile virus/Lyme disease. 22.History of AICD. 23.History of appendectomy. 24.History of back surgery, degenerative joint disease. 25.History of cataracts. 26.Remote history of nicotine dependence. 27.FULL CODE. RECOMMENDATIONS AND DISCUSSION: I recommend to continue current medications, continue with symptomatic treatment. Repeat labs. Continue with IV fluids at 75 mL/hour. Avoid nephrotoxic medications and consult Dr. Vargas. C difficile, which has not been done. Otherwise, I would recommend to follow the patient closely. The prognosis is guarded because of multiple complex medical issues. Further recommendations to follow. MMODL / IJN: [id number] /
[2021-10-05] MEDS: TEMAZEPAM 15 MG CAP PO PRN (21:56)
[2021-10-05] MEDS: PRAVASTATIN SODIUM 40 MG TAB PO SCH (21:56)
[2021-10-05] MEDS: INSULIN DETEMIR (LEVEMIR) 100 UNIT/ML SYR SQ SCH (21:58)
[2021-10-06] MEDS: oxyCODONE-APAP 5-325MG 1 EACH TAB PO PRN ×2 (02:42→08:17)
[2021-10-06] MEDS: SODIUM CHLORIDE 0.9% 1,000 ML IV SCH (02:42)
[2021-10-06] MEDS: GABAPENTIN 300 MG CAP PO SCH ×2 (03:55→08:18)
[2021-10-06 05:53] LABS: Glucose,Whole Blood 58 mg/dL (75-99)
[2021-10-06] MEDS: PANTOPRAZOLE 40 MG TABLET PO SCH (05:58)
[2021-10-06] MEDS: carvediloL 6.25 MG TAB PO SCH (05:58)
[2021-10-06 06:06] LABS: Glucose,Whole Blood 54 mg/dL (75-99)
[2021-10-06 06:20] LABS: Glucose,Whole Blood 60 mg/dL (75-99)
[2021-10-06] MEDS ORDERED: DEXTROSE 50% SYRINGE 50 ML IVP STA (06:20)
[2021-10-06 06:40] LABS: Glucose,Whole Blood 59 mg/dL (75-99)
[2021-10-06 06:49] LABS: Glucose,Whole Blood 112 mg/dL (75-99)
[2021-10-06] MEDS: ENOXAPARIN 40 MG/0.4 ML SYRINGE SQ SCH (08:18)
[2021-10-06] MEDS: CALCIUM CARB-VIT D 500 MG-5 MCG TAB PO SCH (08:18)
[2021-10-06] MEDS: allopurinoL 100 MG TAB PO SCH (08:18)
[2021-10-06 08:42] VITALS: BP 160/67; PULSE 60; RESP 16
[2021-10-06 09:22] LABS: HCT 42.9 % (39.0-53.0); MCH 31.9 pg (25.0-35.0); MCHC 32.7 g/dL (31.0-37.0); MCV 97.5 fL (80.0-100.0); Mean Platelet Volume 7.9; Platelet Count 244 k/uL (150-450); RDW 13.8 % (11.5-15.5); WBC 12.6 k/uL (3.8-10.6)
--- NOTE | 2021-10-06 09:27 | P.NPCON ---
History of Present Illness - Reason for Consult acute renal failure, chronic renal failure - History of Present Illness Reason for consultation: Acute kidney injury on chronic kidney disease History of present illness: Patient is a 81-year-old male seen in renal consultation for acute kidney injury on chronic kidney disease. Patient has chronic kidney disease stage IIIa with baseline creatinine in the range of 1.3-1.5. Creatinine was 1.76 yesterday. He presented to the hospital with left-sided chest pain he describes the pain as sharp. No pain in his arm. No shortness of breath. Patient states the chest pain is now resolved. He has been evaluated by cardiology. Echocardiogram revealed ejection fraction of 55-60% with moderate mitral regurgitation. Has been voiding. No hematuria or dysuria. Patient does have history of diabetes. He was initially on IV fluids but now off. Oral intake is fair. Denies use of nonsteroidals. Vital signs are stable. General: The patient appeared well nourished and normally developed. HEENT: Head exam is unremarkable. LUNGS: Breath sounds decreased. HEART: Rate and Rhythm are regular. ABDOMEN: Soft, no distention. EXTREMITITES: No edema. Past Medical History Past Medical History: CVA/TIA, Diabetes Mellitus, GERD/Reflux, Hearing Disorder / Deafness, Hyperlipidemia, Hypertension, Musculoskeletal Disorder, Pneumonia, Renal Disease, Rheumatoid Arthritis (RA), Thyroid Disorder Additional Past Medical History / Comment(s): LOW IRON LEVELS AND FATIGUE. Hx CMP w/ BiVICD. 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 chronic back pain, recent adm. due to CVA, hx. chronic elevated white count, anemia per spouse History of Any Multi-Drug Resistant Organisms: None Reported Past Surgical History: AICD, Appendectomy, Back Surgery, Heart Catheterization, Joint Replacement, Tonsillectomy Additional Past Surgical History / Comment(s): Biventricular AICD placement/[employer], battery change r/t recall, Back surgery 6, colonoscopy, past hx of pain clinic procedure, cataract sx, Oral sx "to smooth down bones in mouth." 01/18/20 RT TOTAL KNEE; 02/24/20 Repair Rt knee tendon. Past Anesthesia/Blood Transfusion Reactions: No Reported Reaction Additional Past Anesthesia/Blood Transfusion Reaction / Comment(s): blood transfusion-no reaction; BP was high when came in for his 1st pain procedure- procedure was canceled- states no problem since. Type of Cardiac Device: AICD Device Placement Date:: 2016 Past Psychological History: No Psychological Hx Reported Smoking Status: Former smoker Past Alcohol Use History: Occasional Additional Past Alcohol Use History / Comment(s): STARTED SMOKING AT AGE 16, SMOKED 1- 2 1/2 PPD, QUIT 1980 EST. Occasional use of alcohol Past Drug Use History: None Reported - Past Family History Father History Unknown: Yes Mother Family Medical History: Hyperlipidemia, Hypertension, Myocardial Infarction ([place]) Additional Family Medical History / Comment(s): . Medications and Allergies Home Medications Medication Instructions Recorded Confirmed Type Omeprazole [PriLOSEC] 20 mg PO DAILY 11/24/18 10/04/21 History Pravastatin Sodium [Pravachol] 40 mg PO HS 02/27/19 10/04/21 History predniSONE 10 mg PO Q48H 10/06/19 10/04/21 History allopurinoL [Zyloprim] 100 mg PO DAILY 10/09/19 10/04/21 History Carvedilol [Coreg] 6.25 mg PO BID 11/30/19 10/04/21 History Aspirin [Adult Low Dose Aspirin EC] 81 mg PO DAILY 03/23/20 10/04/21 History Calcium Carbonate/Vitamin D3 1 tab PO DAILY 06/05/21 10/04/21 History [Calcium 600 mg-Vit D3 5 mcg (200 unit)] INSULIN ASPART (NovoLOG) [NovoLOG See Protocol SQ TID-W/MEALS 06/05/21 10/04/21 History (formulary)] Insulin Detemir (Levemir) [Levemir] 20 unit SQ HS 06/05/21 10/04/21 History Tamsulosin HCl [Flomax] 0.4 mg PO W/SUPPER 06/05/21 10/04/21 History predniSONE 5 mg PO Q48H 06/05/21 10/04/21 History Clopidogrel [Plavix] 75 mg PO DIRECTED 08/23/21 10/04/21 History Gabapentin 300 mg PO Q8H 08/23/21 10/04/21 History Torsemide [Demadex] 10 mg PO DAILY 08/23/21 10/04/21 History INSULIN ASPART (NovoLOG) [NovoLOG 10 unit SQ AC-TID 10/04/21 10/04/21 History (formulary)] oxyCODONE-APAP 5-325MG [Percocet 1 tab PO QID PRN 10/04/21 10/04/21 History 5-325 mg] Allergies Allergy/AdvReac Type Severity Reaction Status Date / Time amlodipine Allergy swelling Verified 10/04/21 16:25 of feet doxycycline Allergy Anaphylaxis Verified 10/04/21 16:25 Iodinated Contrast Media Allergy Anaphylaxis Verified 10/04/21 16:25 [Iodinated Contrast- Oral and IV Dye] iodine Allergy Anaphylaxis Verified 10/04/21 16:25 metronidazole [From Flagyl] Allergy Rash/Hives Verified 10/04/21 16:25 shrimp Allergy Rash/Hives Verified 10/04/21 16:25 acarbose AdvReac Abdominal Verified 10/04/21 16:25 Pain adhesive tape AdvReac SKIN PULLS Verified 10/04/21 16:25 OFF " amoxicillin trihydrate AdvReac Nausea & Verified 10/04/21 16:25 [From Augmentin] Vomiting potassium clavulanate AdvReac Nausea & Verified 10/04/21 16:25 [From Augmentin] Vomiting Physical Exam Vitals: Vital Signs Temp Pulse Resp BP Pulse Ox 10/06/21 08:00 60 16 160/67 97 10/06/21 04:00 68 18 142/62 98 10/05/21 19:39 97.6 F 65 17 152/65 95 10/05/21 16:54 58 L 17 10/05/21 16:01 98.2 F 95 16 173/75 96 10/05/21 12:00 60 18 160/68 98 Intake and Output 10/05/21 10/06/21 10/06/21 22:59 06:59 14:59 Intake Total 240 485 Output Total 200 550 Balance 40 -65 Intake: Oral 240 485 Output: Urine 200 550 Other: Voiding Method Urinal Urinal # Voids 1 1 Weight 78.9 kg Results - Lab Results Most recent lab results Calcium 8.9 mg/dL (8.4-10.2) 10/05/21 07:13 Magnesium 1.9 mg/dL (1.6-2.3) 10/04/21 14:41 10/05/21 07:13 10/05/21 07:13 Assessment and Plan Plan: Assessment: 1. Acute kidney injury secondary to hemodynamic ATN. Creatinine 1.76 yesterday. UA fairly benign. No hydronephrosis noted on CAT scan. 2. Chronic kidney disease stage IIIa with baseline creatinine in the range of 1.3-1.5 secondary to nephrosclerosis. 3. Atypical chest pain. Resolved. Cardiology following. 4. Diabetes mellitus. Plan: Encourage oral intake. Avoid nephrotoxins. If renal function stable today, he can be discharged home. Follow up outpatient in 1-2 weeks. Thank you for the consultation. I will continue to follow the patient with you during his hospital stay.
[2021-10-06 09:31] LABS: Calcium 8.5 mg/dL (8.4-10.2); Potassium 4.5 mmol/L (3.5-5.1)
[2021-10-06 10:23] LABS: Eosinophils # (M) 0.88 k/uL (0-0.7); Lymphocytes # (M) 4.91 k/uL (1.0-4.8); Monocytes # (M) 1.01 k/uL (0-1.0); Neutrophils # (M) 5.92 k/uL (1.3-7.7); Neutrophils % (M) 47 %; Nucleated Red Blood Cells 0 /100 WBC (0-0); Total Cells Counted 200
[2021-10-06 11:45] LABS: Glucose,Whole Blood 149 mg/dL (75-99)
--- NOTE | 2021-10-06 15:49 | PN ---
PROGRESS NOTE Mr. Diaz has a known case of hypertension, hyperlipidemia, aortic insufficiency, biventricular AICD, being followed by Dr. Narvaez. We were asked to see the patient because of complaints of chest pain, though patient came mainly to the hospital with complaints of diarrhea for the last 2-3 days. He had some chest pain which seemed to be respirophasic and atypical. Previous lab work showed a creatinine of 1.76 on admission. Cardiac-meelndez, patient seems to be stable. Patient was seen by ambulance driver today. His lab values showed creatinine of 1.57, which is an improvement compared to the previous reading. Most probably his high creatinine is related to prerenal azotemia. From cardiac standpoint, patient is stable. No further cardiac workup is suggested. Physical examination at this time reveals an 81-year-old gentleman who is alert, oriented, does not appear to be in acute distress. Blood pressure is fluctuating between 140 and 150. Pulse is 60. Respirations 16. Lungs are clear. Heart is regular. No JVD. His lab values showed improved creatinine of 1.57. White count was 12,000. FINAL IMPRESSION: 1. Prerenal azotemia, probably related to diarrhea. 2. Diarrhea. 3. Atypical chest pain. 4. History of cardiomyopathy and biventricular pacemaker. PLAN: From cardiac standpoint, patient does not need any further workup. When medically stable, patient could be discharged home to have followup with Dr. Narvaez. DISHA / ANAND: [id number] /
== END 2021-10-06 15:21 | disposition home or self-care (01) | DRG 683 ==
LOC: EC 13:44 → 3SCARD 16:47
PROVIDERS: ADMIT Hospitalist; ATTEND Hospitalist
DX: N17.0 Acute kidney failure with tubular necrosis (principal); I42.9 Cardiomyopathy, unspecified; I13.0 Hypertensive heart and chronic kidney disease with heart failure and stage 1 through stage 4 chronic kidney disease, or unspecified chronic kidney disease; J84.9 Interstitial pulmonary disease, unspecified; I50.32 Chronic diastolic (congestive) heart failure; K52.9 Noninfective gastroenteritis and colitis, unspecified; R07.9 Chest pain, unspecified; E03.9 Hypothyroidism, unspecified; E11.649 Type 2 diabetes mellitus with hypoglycemia without coma; E78.5 Hyperlipidemia, unspecified; E86.0 Dehydration; G89.29 Other chronic pain; H91.90 Unspecified hearing loss, unspecified ear; I08.0 Rheumatic disorders of both mitral and aortic valves; N18.31 Chronic kidney disease, stage 3a; E11.22 Type 2 diabetes mellitus with diabetic chronic kidney disease; K21.9 Gastro-esophageal reflux disease without esophagitis; M05.10 Rheumatoid lung disease with rheumatoid arthritis of unspecified site; Z20.822 Contact with and (suspected) exposure to COVID-19; Z79.4 Long term (current) use of insulin; Z79.82 Long term (current) use of aspirin; Z79.899 Other long term (current) drug therapy; Z82.49 Family history of ischemic heart disease and other diseases of the circulatory system; Z86.73 Personal history of transient ischemic attack (TIA), and cerebral infarction without residual deficits; Z87.01 Personal history of pneumonia (recurrent); Z87.891 Personal history of nicotine dependence; Z90.49 Acquired absence of other specified parts of digestive tract; Z95.810 Presence of automatic (implantable) cardiac defibrillator
CPT/HCPCS: 36415; 71046; 71250; 74176; 80048; 80053; 81003; 83615; 83690; 83735; 83880; 84484; 85025; 85379; 85610; 85730; 86140; 87636; 93005; 93306; 96361; 96374; 99285

== ENCOUNTER 2021-10-11 15:15 | Emergency (ER) | payer MEDICARE, BC ==
[2021-10-11 15:59] VITALS: TEMP 98.3
[2021-10-11] MEDS ORDERED: ONDANSETRON 4 MG/2 ML VIAL IVP STA (16:14)
[2021-10-11] MEDS ORDERED: SODIUM CHLORIDE 0.9% 1,000 ML IV STA (16:14)
[2021-10-11 18:27] LABS: HCT 41.3 % (39.0-53.0); HGB 13.7 gm/dL (13.0-17.5); MCH 31.5 pg (25.0-35.0); MCHC 33.2 g/dL (31.0-37.0); MCV 94.9 fL (80.0-100.0); Platelet Count 289 k/uL (150-450); RBC 4.36 m/uL (4.30-5.90); RDW 13.2 % (11.5-15.5); WBC 15.3 k/uL (3.8-10.6)
[2021-10-11 18:36] LABS: Albumin 3.3 g/dL (3.5-5.0); Calcium 8.7 mg/dL (8.4-10.2); Potassium 4.3 mmol/L (3.5-5.1); Total Bilirubin 0.4 mg/dL (0.2-1.3); Total Protein 6.1 g/dL (6.3-8.2)
--- NOTE | 2021-10-11 19:54 | XR ---
EXAMINATION TYPE: XR KUB DATE OF EXAM: 10/11/2021 6:32 PM CLINICAL HISTORY: Nausea, vomiting, diarrhea, weakness, pain TECHNIQUE: Upright images of the abdomen and pelvis were obtained COMPARISON: None. FINDINGS: Cardiac AICD. Lumbosacral and sacroiliac fixation hardware. Levocurvature of the thoracolum bar spine. Degenerative changes of the hips. Nonspecific bowel gas pattern. Several similar-appearing ovoid densities of the right lower quadrant and left midabdomen are seen, likely radiopaque ingested medication. No pneumoperitoneum. Lung bases are clear. IMPRESSION: Nonspecific bowel gas pattern.
--- NOTE | 2021-10-11 20:15 | ED ---
Nausea/Vomiting/Diarrhea HPI - General Chief complaint: Nausea/Vomiting/Diarrhea Stated complaint: Nausea/Vomiting Time Seen by Provider: 10/11/21 16:04 Source: patient, RN notes reviewed Mode of arrival: wheelchair Limitations: no limitations - History of Present Illness Initial comments: Patient is an 81-year-old male that presents to the emergency department complaining of abdominal pain and not feeling well for the past several days. He was recently discharged from the hospital the same complaint. Patient is otherwise a well-appearing gentleman in no apparent distress. He notes no aggravating or alleviating factors. He notes every time he does try to eat food he does get nauseous. Patient denied any chest pain shortness of breath headac he diarrhea constipation fever fatigue chills. - Related Data Home Medications Medication Instructions Recorded Confirmed Omeprazole [PriLOSEC] 20 mg PO DAILY 11/24/18 10/11/21 Pravastatin Sodium [Pravachol] 40 mg PO HS 02/27/19 10/11/21 predniSONE 10 mg PO Q48H 10/06/19 10/11/21 allopurinoL [Zyloprim] 100 mg PO DAILY 10/09/19 10/11/21 Carvedilol [Coreg] 6.25 mg PO BID 11/30/19 10/11/21 Aspirin [Adult Low Dose Aspirin EC] 81 mg PO DAILY 03/23/20 10/11/21 Calcium Carbonate/Vitamin D3 1 tab PO DAILY 06/05/21 10/11/21 [Calcium 600 mg-Vit D3 5 mcg (200 unit)] INSULIN ASPART (NovoLOG) [NovoLOG See Protocol SQ TID-W/MEALS 06/05/21 10/11/21 (formulary)] Insulin Detemir (Levemir) [Levemir] 20 unit SQ HS 06/05/21 10/11/21 Tamsulosin HCl [Flomax] 0.4 mg PO W/SUPPER 06/05/21 10/11/21 predniSONE 5 mg PO Q48H 06/05/21 10/11/21 Clopidogrel [Plavix] 75 mg PO DIRECTED 08/23/21 10/11/21 Gabapentin 300 mg PO Q8H 08/23/21 10/11/21 Torsemide [Demadex] 10 mg PO DAILY 08/23/21 10/11/21 INSULIN ASPART (NovoLOG) [NovoLOG 10 unit SQ AC-TID 10/04/21 10/11/21 (formulary)] oxyCODONE-APAP 5-325MG [Percocet 1 tab PO QID PRN 10/04/21 10/11/21 5-325 mg] Previous Rx's Medication Instructions Recorded Pantoprazole [Protonix] 40 mg PO AC-BRKFST #30 tab 10/06/21 Allergies Allergy/AdvReac Type Severity Reaction Status Date / Time amlodipine Allergy swelling Verified 10/11/21 17:24 of feet doxycycline Allergy Anaphylaxis Verified 10/11/21 17:24 Iodinated Contrast Media Allergy Anaphylaxis Verified 10/11/21 17:24 [Iodinated Contrast- Oral and IV Dye] iodine Allergy Anaphylaxis Verified 10/11/21 17:24 metronidazole [From Flagyl] Allergy Rash/Hives Verified 10/11/21 17:24 shrimp Allergy Rash/Hives Verified 10/11/21 17:24 acarbose AdvReac Abdominal Verified 10/11/21 17:24 Pain adhesive tape AdvReac SKIN PULLS Verified 10/11/21 17:24 OFF " amoxicillin trihydrate AdvReac Nausea & Verified 10/11/21 17:24 [From Augmentin] Vomiting potassium clavulanate AdvReac Nausea & Verified 10/11/21 17:24 [From Augmentin] Vomiting Review of Systems ROS Statement: Those systems with pertinent positive or pertinent negative responses have been documented in the HPI. ROS Other: All systems not noted in ROS Statement are negative. Past Medical History Past Medical History: CVA/TIA, Diabetes Mellitus, GERD/Reflux, Hearing Disorder / Deafness, Hyperlipidemia, Hypertension, Musculoskeletal Disorder, Pneumonia, Renal Disease, Rheumatoid Arthritis (RA), Thyroid Disorder Additional Past Medical History / Comment(s): LOW IRON LEVELS AND FATIGUE. Hx CMP w/ BiVICD. Interstitial lung disease/rheumatoid lung, gout, CVA in 2006- no residual effects, hiatal hernia; bronchitis, states "had [place] virus, possibly lymes disease". chronic back pain, recent adm. due to CVA, hx. chronic elevated white count, anemia per spouse History of Any Multi-Drug Resistant Organisms: None Reported Past Surgical History: AICD, Appendectomy, Back Surgery, Heart Catheterization, Joint Replacement, Tonsillectomy Additional Past Surgical History / Comment(s): Biventricular AICD placement/[employer], battery change r/t recall, Back surgery 6, colonoscopy, past hx of pain clinic procedure, cataract sx, Oral sx "to smooth down bones in mouth." 01/18/20 RT TOTAL KNEE; 02/24/20 Repair Rt knee tendon. Past Anesthesia/Blood Transfusion Reactions: No Reported Reaction Additional Past Anesthesia/Blood Transfusion Reaction / Comment(s): blood transfusion-no reaction; BP was high when came in for his 1st pain procedure- procedure was canceled- states no problem since. Type of Cardiac Device: AICD Device Placement Date:: 2016 Past Psychological History: No Psychological Hx Reported Smoking Status: Former smoker Past Alcohol Use History: Occasional Past Drug Use History: None Reported - Past Family History Father History Unknown: Yes Mother Family Medical History: Hyperlipidemia, Hypertension, Myocardial Infarction ([place]) Additional Family Medical History / Comment(s): . General Exam Limitations: no limitations General appearance: alert, in no apparent distress Head exam: Present: atraumatic, normocephalic, normal inspection Eye exam: Present: normal appearance, PERRL, EOMI. Absent: scleral icterus, conjunctival injection, periorbital swelling ENT exam: Present: normal exam, mucous membranes moist Neck exam: Present: normal inspection Respiratory exam: Present: normal lung sounds bilaterally. Absent: respiratory distress, wheezes, rales, rhonchi, stridor Cardiovascular Exam: Present: regular rate, normal rhythm, normal heart sounds. Absent: systolic murmur, diastolic murmur, rubs, gallop, clicks GI/Abdominal exam: Present: soft, normal bowel sounds. Absent: distended, tenderness, guarding, rebound, rigid Extremities exam: Present: normal inspection, full ROM, normal capillary refill. Absent: tenderness, pedal edema, joint swelling, calf tenderness Neurological exam: Present: alert, oriented X3 Psychiatric exam: Present: normal affect, normal mood Skin exam: Present: warm, dry, intact, normal color. Absent: rash Course Vital Signs 10/11/21 15:56 Temperature 98.3 F Pulse Rate 57 L Respiratory 20 Rate Blood Pressure 135/60 O2 Sat by Pulse 95 Oximetry Medical Decision Making - Medical Decision Making 81-year-old male complaining of abdominal pain with nausea vomiting. Labs, KUB, 1 L normal saline ordered. Labs unremarkable from baseline. KUB shows nonspecific bowel gas pattern. Patient is agreeable with discharge home with follow-up to primary care. Recent is Covid negative. Case discussed with Dr. Porter, patient can discharge home. - Lab Data Result diagrams: 10/11/21 18:19 10/11/21 18:19 Lab Results 10/11/21 10/11/21 10/11/21 Range/Units 18:19 18:19 18:19 WBC 15.3 H (3.8-10.6) k/uL RBC 4.36 (4.30-5.90) m/uL Hgb 13.7 (13.0-17.5) gm/dL Hct 41.3 (39.0-53.0) % MCV 94.9 (80.0-100.0) fL MCH 31.5 (25.0-35.0) pg MCHC 33.2 (31.0-37.0) g/dL RDW 13.2 (11.5-15.5) % Plt Count 289 (150-450) k/uL MPV 8.0 Sodium 136 L (137-145) mmol/L Potassium 4.3 (3.5-5.1) mmol/L Chloride 104 (98-107) mmol/L Carbon Dioxide 25 (22-30) mmol/L Anion Gap 7 mmol/L BUN 26 H (9-20) mg/dL Creatinine 1.53 H (0.66-1.25) mg/dL Est GFR (CKD-EPI)AfAm 48 (>60 ml/min/1.73 sqM) Est GFR (CKD-EPI)NonAf 42 (>60 ml/min/1.73 sqM) Glucose 174 H (74-99) mg/dL Calcium 8.7 (8.4-10.2) mg/dL Total Bilirubin 0.4 (0.2-1.3) mg/dL AST 21 (17-59) U/L ALT 16 (4-49) U/L Alkaline Phosphatase 65 (38-126) U/L Total Protein 6.1 L (6.3-8.2) g/dL Albumin 3.3 L (3.5-5.0) g/dL Amylase 43 (30-110) U/L Lipase 33 (23-300) U/L Coronavirus (PCR) Not Detected (Not Detectd) - Radiology Data Radiology results: report reviewed, image reviewed KUB: Nonspecific bowel gas pattern. Disposition Clinical Impression: Abdominal pain, Nausea & vomiting Disposition: HOME SELF-CARE Condition: Stable Instructions (If sedation given, give patient instructions): Abdominal Pain (ED) Additional Instructions: Please return to the Emergency Department if symptoms worsen or any other concerns. Follow-up with primary care 1-2 days. Is patient prescribed a controlled substance at d/c from ED?: No Referrals: Madalyn Doss MD [Primary Care Provider] - 1-2 days Time of Disposition: 20:15
[2021-10-11 20:29] LABS: Nucleated Red Blood Cells 0 /100 WBC (0-0)
[2021-10-11 20:46] LABS: Eosinophils # (M) 1.07 k/uL (0-0.7); Lymphocytes # (M) 5.05 k/uL (1.0-4.8); Monocytes # (M) 0.92 k/uL (0-1.0); Neutrophils # (M) 8.42 k/uL (1.3-7.7); Neutrophils % (M) 55 %; Total Cells Counted 200
[2021-10-11 20:59] LABS: Appearance,Urine Clear (Clear); Bilirubin,Urine Negative (Negative); Blood,Urine Negative (Negative); Color,Urine Yellow; Glucose,Urine (UA) Negative (Negative); Ketones,Urine Negative (Negative); Leukocyte Esterase,Urine Negative (Negative); Nitrite,Urine Negative (Negative); PH, Urine 5.5 (5.0-8.0); Protein,Urine Negative (Negative); Specific Gravity,Urine 1.017 (1.001-1.035); Urobilinogen,Urine <2.0 mg/dL (<2.0)
[2021-10-11 21:30] VITALS: BP 113/69; PULSE 78; RESP 18
== END 2021-10-11 20:49 | disposition home or self-care (01) ==
LOC: EC 15:15
DX: R10.9 Unspecified abdominal pain (principal); R11.2 Nausea with vomiting, unspecified; E11.36 Type 2 diabetes mellitus with diabetic cataract; I10 Essential (primary) hypertension; E78.5 Hyperlipidemia, unspecified; K21.9 Gastro-esophageal reflux disease without esophagitis; M06.9 Rheumatoid arthritis, unspecified; M10.9 Gout, unspecified; Z79.02 Long term (current) use of antithrombotics/antiplatelets; Z79.4 Long term (current) use of insulin; Z79.52 Long term (current) use of systemic steroids; Z79.82 Long term (current) use of aspirin; Z87.891 Personal history of nicotine dependence; Z88.0 Allergy status to penicillin; Z88.1 Allergy status to other antibiotic agents; Z88.8 Allergy status to other drugs, medicaments and biological substances; Z90.49 Acquired absence of other specified parts of digestive tract; Z86.73 Personal history of transient ischemic attack (TIA), and cerebral infarction without residual deficits; Z83.49 Family history of other endocrine, nutritional and metabolic diseases; Z82.49 Family history of ischemic heart disease and other diseases of the circulatory system; Z20.822 Contact with and (suspected) exposure to COVID-19
CPT/HCPCS: 36415; 80053; 82150; 83690; 85025; 81003; 87635; 74018; 99284; 96374; J2405

== ENCOUNTER 2021-10-24 06:18 | Day surgery (SDC) | payer MEDICARE, BC ==
[2021-10-18 09:45] VITALS: BMI 27.1
[~2021-10-24 06:18] MED LIST changes: -ALPRAZolam 0.25 MG TAB PO PRN; -ALPRAZolam 0.5 MG TAB PO PRN; -ASPIRIN 81 MG PO PRN; -CLINDAMYCIN 600 MG in SODIUM CHLORIDE 0.9% 250 ML IRRIGATION PRN; -CLINDAMYCIN 900 MG in DEXTROSE 5% IN WATER 50 ML IVPB PRN; -CLOPIDOGREL 75 MG TAB PO PRN; +DEXAMETHASONE SOD PHOSPHATE 4 MG/ML 1 ML VIAL IV ONE; +HYDROmorphone 0.5 MG/0.5 ML SYRINGE IVP PRN; +LACTATED RINGERS 1,000 ML IV SCH; -NITROGLYCERIN SL TABS 0.4 MG TAB SUBLINGUAL PRN; +ONDANSETRON 4 MG/2 ML VIAL IVP ONE; -SODIUM CHLORIDE 0.9% 1,000 ML in EMPTY BAG 1 BAG IV ONE
[2021-10-24 06:41] VITALS: TEMP 97.6
--- NOTE | 2021-10-24 06:55 | P.HPOR ---
History of Present Illness H&P Date: 10/24/21 Chief Complaint: Neck mass Benjy is a pt well known to me with a long history of multiple medical comorbidities and an L2-P fusion about 1 year ago. He has been doing OK from this. He presented to the office with c/o a neck mass that he saw his PCP for. They offered him to remove in the office but he did not feel comfortable and requested that it be done in the OR so he presented to our office for evaluation. He states the mass has been the same size for years now, it is on the LHS of his trapezial region and is less than 2 cm. He states no pain related. He does have a hx of a similar mass 20-30 years ago that was removed but in a different area. No hx of cancers or other issues related. The mass previously was also benign. It does not cause him pain but asthetically bothers him. He requests that it be removed in the OR. Denies any other sx. no F/c/sob/cp at this time. Review of Systems 14 points review of systems completed and as stated in HPI, all other systems reviewed are negative. Past Medical History Past Medical History: CVA/TIA, Diabetes Mellitus, GERD/Reflux, Hearing Disorder / Deafness, Hyperlipidemia, Hypertension, Musculoskeletal Disorder, Pneumonia, Renal Disease, Rheumatoid Arthritis (RA), Thyroid Disorder Additional Past Medical History / Comment(s): LOW IRON LEVELS AND FATIGUE, hx Anemia, chronic elevated white count. 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 Hiatal hernia. Hx Bronchitis, "had west n[place] virus, possibly lymes disease". Chronic back pain. History of Any Multi-Drug Resistant Organisms: None Reported Past Surgical History: AICD, Appendectomy, Back Surgery, Heart Catheterization, Joint Replacement, Orthopedic Surgery, Pacemaker, Tonsillectomy Additional Past Surgical History / Comment(s): Biventricular AICD placement/[employer], battery change due to recall, back surgery X6, colonoscopy, pain clinic procedure, cataract and eyelid surgery, oral surgery, total right knee replacement, right knee tendon repair, 1 cardiac stent(06/23/21). Past Anesthesia/Blood Transfusion Reactions: No Reported Reaction Additional Past Anesthesia/Blood Transfusion Reaction / Comment(s): Blood transfusion-no reaction. Type of Cardiac Device: AICD Device Placement Date:: 2017 Past Psychological History: No Psychological Hx Reported Smoking Status: Former smoker Past Alcohol Use History: None Reported Additional Past Alcohol Use History / Comment(s): STARTED SMOKING AT AGE 16, SMO KED 1- 2 1/2 PPD, QUIT IN 1988. Past Drug Use History: None Reported - Past Family History Father History Unknown: Yes Mother Family Medical History: Hyperlipidemia, Hypertension, Myocardial Infarction ([place]) Additional Family Medical History / Comment(s): . Medications and Allergies Home Medications Medication Instructions Recorded Confirmed Type Omeprazole [PriLOSEC] 20 mg PO QAM 11/24/18 10/24/21 History Pravastatin Sodium [Pravachol] 40 mg PO HS 02/27/19 10/24/21 History predniSONE 10 mg PO Q48H 10/06/19 10/24/21 History allopurinoL [Zyloprim] 100 mg PO DAILY 10/09/19 10/24/21 History Carvedilol [Coreg] 6.25 mg PO BID 11/30/19 10/24/21 History Aspirin [Adult Low Dose Aspirin EC] 81 mg PO DAILY 03/23/20 10/18/21 History Calcium Carbonate/Vitamin D3 1 tab PO DAILY 06/05/21 10/18/21 History [Calcium 600 mg-Vit D3 5 mcg (200 unit)] INSULIN ASPART (NovoLOG) [NovoLOG See Protocol SQ TID-W/MEALS PRN 06/05/21 10/24/21 History (formulary)] Insulin Detemir (Levemir) [Levemir] 10 unit SQ HS 06/05/21 10/24/21 History Tamsulosin HCl [Flomax] 0.4 mg PO W/SUPPER 06/05/21 10/24/21 History predniSONE 5 mg PO Q48H 06/05/21 10/24/21 History Clopidogrel [Plavix] 75 mg PO DIRECTED 08/23/21 10/18/21 History Gabapentin 300 mg PO TID 08/23/21 10/18/21 History Torsemide [Demadex] 10 mg PO DAILY 08/23/21 10/24/21 History Pantoprazole [Protonix] 40 mg PO AC-BRKFST #30 tab 10/06/21 10/24/21 Rx Allergies Allergy/AdvReac Type Severity Reaction Status Date / Time amlodipine Allergy swelling Verified 10/18/21 09:25 of feet doxycycline Allergy Anaphylaxis Verified 10/18/21 09:25 Iodinated Contrast Media Allergy Anaphylaxis Verified 10/18/21 09:25 [Iodinated Contrast- Oral and IV Dye] iodine Allergy Anaphylaxis Verified 10/18/21 09:25 metronidazole [From Flagyl] Allergy Rash/Hives Verified 10/18/21 09:25 shrimp Allergy Rash/Hives Verified 10/18/21 09:25 acarbose AdvReac Abdominal Verified 10/18/21 09:25 Pain adhesive tape AdvReac SKIN PULLS Verified 10/18/21 09:25 OFF " amoxicillin trihydrate AdvReac Nausea & Verified 10/18/21 09:25 [From Augmentin] Vomiting potassium clavulanate AdvReac Nausea & Verified 10/18/21 09:25 [From Augmentin] Vomiting Physical Examination Osteopathic Statement: *. No significant issues noted on an osteopathic structural exam other than those noted in the History and Physical/Consult. General: Awake, alert, appropriate for age, in no acute distress. HEENT: No unusual neck masses around region of lateral neck triangle, thyroid, supraclavicular groove Heart: Regular rate and rhythm, normal S1, S2 and no murmur/gallop. Lungs: Clear to auscultation bilaterally with no use of accessory muscles. Extremities: Skin warm and dry without acute lesions, coloration, temperature, skin intact, no tenderness or erythema Integument: 1x1 cm well circumscribed mass of the Lt suprascapular region at the anterior edge of the trapezius. This is a mildly mobile, soft mass that has the feeling of a ganglion like cyst. It is mobile and suprafacial in nature. There is no skin stippling, dimpling in this area. There is no skin breakthrough. NV intact all 4 extremities Well healed posterior midline spinal incision mild TTP around the lumbar spine SILT C5-T1 and L2-S1 no pathological reflexes Assessment and Plan Assessment: 1. Lt neck ST mass, superficial, mobile 2. Multiple medical comorbidities Plan: Plan for or today for soft tissue mass excision biopsy pathology Orthopedic Surgery Risk Review Benjy Diaz is a 81-year-old male presenting for evaluation of left trapezial region soft tissue mass. It was my pleasure to have seen and examined Benjy Diaz. In our visit today we have had a chance to go over subjective complaints, physical examination findings and treatments including the natural course history without intervention and various interventional options. On physical exam, Benjy diaz demonstrates a 1 x 1 cm mobile superficial soft tissue mass over the trapezial region in the left neck area. This is asthetically displeasing to the patient I have explained to the patient that this fracture needs stabilization. Based on the patients imaging, physical exam, and the rapid progression and disabling nature of her symptoms, at this time I recommend surgery in the form or a: Soft tissue mass excision I discussed the risk and benefits of this procedure at length with Benjy Diaz. Questions were invited and answered, and the patient wishes to proceed as outlined below. Currently, I am recommendin. Left neck soft tissue mass excision 2. Review of surgical risks and benefits as well as an educational packet on the proposed surgical procedure. Risks: All surgical procedures come with inherent risks, including those related to positioning, anesthesia, intraoperative findings, and postoperative complications. It is important to understand that surgery does not come with any guarantee of a successful outcome as complications and adverse events are always possible. The patient was given a handout discussing the surgical procedure and risks associated with the intervention, both of which were discussed with the patient. These risks include but are not limited to the following: - Experiencing same, different or even worse symptoms compared to before surgery. - Requiring further surgery or other forms of treatment presently or at some time in the future . - On an extreme but fortunately relatively rare basis severe complication such as blindness, stroke, heart attack, temporary and/or permanent nerve injury, paralysis, coma, or may occur, sometimes without known explanation. - Surgical complications may include but are not limited to risk of infection, fluid accumulation in the surgical dissection site, including a seroma or hematoma, that requires additional surgery, wound drainage, bleeding, new numbness or weakness, vision changes/loss, spinal fluid leakage, non-healing and/or infected incision, headaches, difficulty or inability to swallow, hoarseness, hemopneumothorax, pneumothorax, injury to nerves, spinal cord, blood vessels, lymphatics or other vital organs (i.e., bowel injury, injury to the great vessels); heterotopic bone formation; complications related to the hardware such as screws, rods, including misplaced hardware, device failure, hardware fracture/breakage, or hardware loosening; retained surgical instrumentations or devices and the need for further surgery. - Medical risks of the planned surgery include but are not limited to generalized Infections to the whole body or local areas outside of the surgical site (sepsis), heart attack, bleeding, anaphylaxis, meningitis, seizure, epilepsy, hearing loss, burn desir, laceration of the head or other areas of the body, bruising, hypersensitivity of the skin, bladder over distension; allergic reaction; shoulder injury related to positioning; fat, blood and air clots to other areas of the body like heart, lungs, brain; failure of internal organs such as lungs, kidneys, liver and excessive bleeding. If blood transfusions are necessary, note that transfusions may cause intolerance reactions such as anaphylaxis or other complex reactions. Despite best efforts, the results of surgery might not heal in terms of bone, soft tissues such as skin, fascia, ligaments, and joints. [facility] is an educational center that serves as a training facility for physician assistants, nurses, orthopedic residents and fellows. Residents are physicians who are completing their surgical intensive training following medical school. They assist in the operating room with direct supervision of the attending surgeons. [place] are surgeons who have completed their training and eligible for board certification. They have opted for an elective year of more specialized training in their field. They assist in the operating room under the supervision of the attending surgeons. Physician assistants are medically trained surgical providers who function in the outpatient, inpatient, and operating room setting under the direct supervision of the attending surgeon. [facility] has multiple operating rooms with single and overlapping rooms running daily. They currently function under the required guidelines as produced by the [facility] Finance Committee with regards to the overlapping rooms and will continue to comply with changes to this policy as they occur. The requirements include and are complied with as follows: (1) the critical portions of the overlapping rooms will not occur at the same time, (2) the attending physician will be physically present during the critical portions of the procedure and immediately available during the entire case, and (3) a back-up attending is designated should the primary attending not be immediately available. The patient has had a chance to review all the listed information, has been given print outs detailing this information, and has had all his/her questions answered to their satisfaction. It was my pleasure to have seen and examined Benjy Diaz. In our visit today we have had a chance to go over my understanding of our patient's current condition, the natural course history without intervention and various interventional options. Questions were invited and answered, and the patient wishes to proceed as outlined above. I have seen and examined the patient for 25 minutes and we have spent more than 50% of the time in repeat and detailed counseling about the patient's condition, its natural course history with out a nd as much as can be predicted with surgery and re-review of various surgical treatment options. In conclusion, Benjy Diaz requested we proceed with the above suggested surgery and are willing to accept risks and limitations of the suggested surgery as nature of the disease process and our best attempts at treatment for the condition. Thank you again for allowing us to be part of your patient's care. Please don't hesitate to contact me if you have any further questions. Signed and authenticated by: Golden [facility] [address] [facility], [address] [address]
[2021-10-24 07:05] LABS: Glucose,Whole Blood 148 mg/dL (75-99)
[2021-10-24] MEDS ORDERED: PROPOFOL 10 MG/ML 20 ML VIAL IV ONE (07:19)
[2021-10-24] MEDS ORDERED: MIDAZOLAM 2 MG/2 ML VIAL ONE (07:19)
[2021-10-24] MEDS ORDERED: fentaNYL (PF) 50 MCG/ML 2 ML AMP ONE (07:19)
[2021-10-24 07:26] LABS: HCT 41.2 % (39.0-53.0); HGB 14.4 gm/dL (13.0-17.5); MCH 31.8 pg (25.0-35.0); Mean Platelet Volume 8.1; Platelet Count 371 k/uL (150-450); RBC 4.53 m/uL (4.30-5.90); WBC 21.9 k/uL (3.8-10.6)
[2021-10-24] MEDS ORDERED: BUPIVACAIN-EPI 0.25%-1:200,000 30 ML VIAL SQ ONE (07:45)
[2021-10-24 08:06] LABS: Eosinophils # (M) 0.66 k/uL (0-0.7); Lymphocytes # (M) 8.98 k/uL (1.0-4.8); Monocytes # (M) 1.97 k/uL (0-1.0); Neutrophils # (M) 10.29 k/uL (1.3-7.7); Neutrophils % (M) 47 %; Nucleated Red Blood Cells 0 /100 WBC (0-0); Total Cells Counted 100
[2021-10-24 08:11] LABS: Glucose,Whole Blood 178 mg/dL (75-99)
[2021-10-24 08:15] VITALS: PULSE 60
[2021-10-24] MEDS ORDERED: LABETALOL 5 MG/ML VIAL MDV IV ONE (09:28)
[2021-10-24 09:56] VITALS: RESP 16
[2021-10-24 10:02] VITALS: BP 151/54
--- NOTE | 2021-10-24 13:06 | P.PN ---
Progress Note - Text Progress Note Date: 10/24/21 Brief Post Op: Surgeon: Albert Pre op dx; left neck soft tissue mass Post op dx: Left neck soft tissue cyst Procedure: Left neck soft tissue mass removal Anesthesia: Local with sedation EBL: 5 mL Fluids: 100 mL UO: none Dispo: Stable to PACU Post op Plan: Standard postoperative care per PACU and anesthesia Discharge home when awake in stable per PACU anesthesia
--- NOTE | 2021-10-24 13:15 | P.OP ---
Date of Procedure: 10/24/21 Preoperative Diagnosis: 1. Lt neck soft tissue mass Postoperative Diagnosis: 1. Left neck soft tissue mass, likely cyst Procedure(s) Performed: 1. Enbloc resection Left neck soft tissue mass 2 x 2 x 2 cm 2. Soft tissue biopsy cyst bed, left neck Implants: none Anesthesia: local, other (Sedation) Surgeon: Golden Price Visual Merchandising Specialist #1: Stanislaw Olivares (Was present and necessary to the case) Estimated Blood Loss (ml): 5 IV fluids (ml): 100 Urine output (ml): 0 Pathology: other (2x2x2 cm cystic like structure, soft with white capsule resected enbloc) Condition: stable Disposition: PACU Indications for Procedure: 81 yo male with left neck cyst like structure over the left trapezial region well circumscribed 2 by 2 x 2 centimeters. He has had something like this 23 years ago which was resected and he would like it resected again as it is Asthetically unpleasent for him and bothers him when it touches his face. We discussed alternatives and potential outcomes. We discussed risks and benefits of the procedure. He was willing to proceed. Operative Findings: 2x2x2 cm well circumscribed white capulated mass, soft with dry cheese like insides. Capsular bed resected. Did not go deep. Was completely superficial within fat tissues. Description of Procedure: The patient was seen and examined in the preoperative area. All preoperative protocols were followed. Informed consent was obtained risks and benefits of the procedure were discussed at length. Risks including bleeding infection damage to the surrounding tissue and risk of reoperation were discussed with the patient. Risk of anesthesia up to and including was a discussed with the patient. These are outlined in the risk reviewed. They were willing to accept these risks and all of the risks of surgery. The patient was given a weight- based dose of antibiotics in the form of Ancef 2 g. The patient was seen and evaluated by the anesthesia team who deemed them fit for surgery. The site was marked, the patient was willing to proceed with the procedure. The patient was transferred to the operative suite by the Department of anesthesia. There were then drifted off to sleep by the department of anesthesia and local anesthetic with sedation anesthesia was used. Once adequate anesthesia had been obtained the patient was carefully transferred to the operative bed. All bony prominences were padded accordingly. SCDs were placed on the nonoperative lower extremities. Arms were well padded. Patient was placed on his right side with an axillary roll and pillows to pad him which allowed better access to his left trapezial and lateral neck region. Preoperative briefing was done with the operative team and everyone was ready fo r the procedure to start. The patients left neck and shoulder was then prepped and draped in the normal sterile fashion. Timeout was then performed and all parties in agreement with the procedure to be performed. Local anesthetic was used and the skin was anesthetized. We tested the skin and the patient had no pain. An incision was made in line with the Sabas lines over the mass. We then used blunt dissection down to the mass. It was encapsulated and was easily removed with tenotomy. We dissected completely around the mass again which was well circumscribed. The mass was then removed en bloc measured and opened. It was sent for pathology as well as culture. We irrigated the wound. We then removed what appeared to be a secondary capsule or just hardened tissue around where the cyst like structure was this was done with blunt dissection and tenotomy. This revealed normal looking fatty tissue. This was also sent for pathology and culture. We then performed bipolar electr ocautery to stave any small bleeding. We then irrigated the wound thoroughly. The wound was then closed with 3-0 Vicryl in the subcu tissue followed by skin glue on the skin. The wound edges approximated very well and there were no complications. The patient was then transferred back to their hospital bed. There were awakened by department of anesthesia having tolerated the procedure very well with no complications. The patient was then transported to the postoperative care unit in stable condition.
== END 2021-10-24 10:22 | disposition home or self-care (01) ==
LOC: OR 06:18
PROVIDERS: ATTEND Orthopaedic Surgery
DX: R22.1 Localized swelling, mass and lump, neck (principal)
CPT/HCPCS: 11423; 21550; 80051; 85025; J2250; J0690; J2405; J3010; J2704; 88304

== ENCOUNTER 2021-11-09 08:08 | Day surgery (SDC) | payer MEDICARE, BC ==
[2021-11-08 10:31] VITALS: BMI 26.7
[2021-11-09] MEDS ORDERED: LACTATED RINGERS 1,000 ML IV SCH (08:18)
[2021-11-09 08:22] VITALS: TEMP 97.6
[2021-11-09 08:38] LABS: Glucose,Whole Blood 134 mg/dL (75-99)
[2021-11-09] MEDS ORDERED: LIDOCAINE 1% (10MG/ML) FOR IV START INTRADERMA ONE (08:45)
[2021-11-09] MEDS ORDERED: .fentaNYL (PF) 50 MCG/ML 2 ML AMP ONE (08:50)
[2021-11-09] MEDS ORDERED: hydrALAZINE HCL 20 MG/ML 1 ML VIAL ONE (08:50)
[2021-11-09] MEDS ORDERED: MIDAZOLAM 2 MG/2 ML VIAL ONE (08:50)
[2021-11-09] MEDS ORDERED: ROPIVACAINE 5MG/ML 20ML VIAL ONE (08:50)
[2021-11-09] MEDS ORDERED: methylPREDNISolone ACETATE 40 MG/ML 1 ML VIAL ONE (08:50)
[2021-11-09] MEDS ORDERED: IV FLUID CONTINUATION 1,000 ML IV ONE (09:12)
[2021-11-09 09:14] VITALS: RESP 16
--- NOTE | 2021-11-09 09:17 | P.PCN ---
Date of Procedure: 11/09/21 Procedure(s) Performed: Procedure=1- bilateral sacroiliac joints steroid injection under fluoroscopy guidance (fluoroscopy image stored on file in the radiology Department ). 2-trigger point injections lumbar paraspinal muscles 4 on the right side and 2 on the left side lumbar paraspinal muscles Preoperative diagnosis= 1-sacroiliitis 2-echolalia joint dysfunction 3- myofascial pain syndrome lumbar paraspinal muscles 3-lumbar spondylosis with facet arthropathy 4-history of lumbar laminectomy and fusion surgery Postoperative diagnosis=Same as preop Diagnosis . Complication = none Condition= stable Anesthesia= moderate sedation with intravenous Versed 2 mg , and fentanyl 100 micrograms . Indication for the procedure= patient complaining of low back pain , examination was positive for severe tenderness over the sacroiliac joints bilaterally and patient diagnosed with sacroiliitis, for this reason he was good candidate for sacroiliac joint steroid injection. Description of the procedure= procedure risk and benefits discussed with the patient, including but not limited, risk of infection and bleeding, and ALLERGIC reaction to the medication and not complete pain relief and patient agreed with the preceding patient taken to the operating room, placed in prone position or standard monitors applied to the patient then after induction of anesthesia back prepped with chlorhexidine 3 times , Then under strict sterile technique, first I did the right sacroiliac joint the which was identified under fluoroscopy guidance been local infiltration of the skin and subcu interstitial with lidocaine 1% then 22-gauge Quincke Needle advanced slowly under fluoroscopy and placed in the right sacroiliac joint needle placement confirmed with AP and oblique and lateral view and after appropriate needle placement confirmed and after negative aspiration, or heme , then Ropivacaine 0.5% 4 mL, and 20 mg of Depo-Medrol mixed together and injected in the right sacroiliac joint after negative aspiration patient tolerated the procedure well without any complication. Then the left sacroiliac joint steroid injection done under strict sterile technique local infiltration of the skin and subcu interstitial at the location of the left sacroiliac joint then a 22-gauge Quincke Needle advanced slowly under fluoroscopy time placed in the left sacroiliac joint, needle placement confirmed with AP and oblique and lateral view then after appropriate needle placement confirmed and after negative aspiration 0.5% Ropivacaine 4 mL and 20 mg of Depo-Medrol injected in the left sacroiliac joint after negative aspiration patient tolerated the procedure well . After the trigger point injection done in a sterile technique after the back was prepped with chlorhexidine 3 then each of the trigger point injected with ropivacaine 0.5% 2 mL, using 25-gauge needle, total of 4 trigger point injected on the right side lumbar paraspinal muscles, and 2 on the left side lumbar paraspinal muscles, injection done after negative aspiration, and there was no paresthesia during the injection patient tolerated the procedure well without any complications
[2021-11-09 09:22] LABS: Glucose,Whole Blood 144 mg/dL (75-99)
[2021-11-09 09:24] VITALS: BP 169/68; PULSE 59
--- NOTE | 2021-11-09 09:54 | FL ---
EXAMINATION TYPE: FL guided pain mgmt statistic DATE OF EXAM: 11/09/2021 HISTORY: Fluoroscopy time 8 seconds of fluoroscopy provided. IMPRESSION: 1. Fluoroscopy time.
== END 2021-11-09 09:56 | disposition home or self-care (01) ==
LOC: ORPAIN 08:08
PROVIDERS: ATTEND Specialist
DX: M46.1 Sacroiliitis, not elsewhere classified (principal); M47.816 Spondylosis without myelopathy or radiculopathy, lumbar region; M79.18 Myalgia, other site; R48.8 Other symbolic dysfunctions; I25.10 Atherosclerotic heart disease of native coronary artery without angina pectoris; Z98.1 Arthrodesis status
CPT/HCPCS: 20553; J2250; J0360; J1030; J3010; J2795; G0260; 99152

== ENCOUNTER → 2021-11-27 | Outpatient (CLI) | payer MEDICARE, BC ==
[2021-11-27 09:17] VITALS: BP 173/82; PULSE 66; RESP 18
--- NOTE | 2021-11-27 17:20 | P.PN ---
Progress Note - Text Progress Note Date: 11/27/21 This is follow-up visit for this patient, an 81 yr old male with a history of severe and chronic low back pain secondary to lumbar degenerative disc diseases and lumbar spondylosis with facet arthropathy. Procedures completed include BL SI joint and BL Lumbar Trigger Point injections. Presents with at side. Patient states his pain started with a bad experience with a chiropractor years ago. His pain is an 8 /10, constant and burning in character. Pain is provoked with walking, bending and twisting. Pain is alleviated with "movement to a better position", inactivity, heat and medications. He states he would be satisfied with pain at 4 /10. States he takes oxycodone from his physician, Dr Price but wants to restart Neurontin. MAPS reviewed. Per MAPS, he hasn't filled Neurontin since 09/11/2021 but claims he still has "some" at home. He is agreeable to a UDS. Dangers of narcotic use discussed, including diminished level of consciousness and respiratory distress. Opioid agreement form signed and pt acknowledged understanding. Patients currently on Oxycodone 5/325 mg prn pain, Neurontin 300 mg, OTC Tylenol prn pain. Patient has tried physical therapy with little to no relief, chiropractics (which he refuses to return to), BL SI and BL TP injections. States the last lumbar trigger point injections only lasted 9 days and is disinterested in any further injections at this time. Patient uses cane for ambulation. Patient denies any side effects of the medication, denies excessive drowsiness or sleepiness, denies suicidal ideation and reports that the current pain medication is helping to control pain and improve activity of daily living. Patient denies any motor or sensory deficits. Patient denies any fever or night sweats, denies any change in the bowel movements or urination. Pain lasted more than 3 months. Patient tried conservative treatment without success. Physical Examination : Constitutional : Cooperative , not in acute distress . HEENT : Neck supple. No lymphadenopathy. No thyromegaly with normal thyroid size. Eyes : no ptosis , no icterus, no photophobia. ENT : normal hearing. Normal oropharynx. No thrush. Respiratory : Chest clear to auscultations bilaterally. No wheezing. No rhonchi. Cardiovascular : Regular rate and rhythm. S1 / S2. No S3. No S4. Gastrointestinal : Abdomen soft. No tenderness. Bowel sounds x 4 intact. No organomegaly. Genitourinary : Deferred. Neurologic : Cranial nerve II to XII intact. No focal neurological deficits. Psychatric : Alert & oriented x 3. Matching mood & appropriate affect. Judgment & insight intact. Lymphatic : No lymphadenopathy. Musculoskeltal : Cervical spine : Motor bulk/ tone/ strength age appropriate in bilateral upper extremities Lumbar spine : Motor bulk/ tone/ strength age appropriate in lower extremities/thigh and legs Deep tendon reflexes : normal Knee Jerk. Normal Ankle Jerk Lumbar facet Loading Test positive Straight Leg Raise test positive at 30 degree at left and right Estelita test positive right and positive left Range of motion: Range of motion in flexion of the lumbar spine 30 degrees Range of motion range of motion of extension of the lumbar spine Severe tenderness over the Sacroiliac joint on the right , left side Gaenslen's test positive Adán test Distraction test Provocation test Positive tenderness over the sacroiliac joint Assessment and plan : Chronic low back pain secondary to lumbar degenerative disc disease , lumbar spondylosis with facet arthropathy without myelopathy. Filled Neurontin. Opioid agreement form signed. Pt acknowledged verbal understanding. Urine collected for UDS. Chronic and current use of high-risk medication (Narcotics). The patient was counseled about risk of opioid use, psychological risk associated with opioids and was orally counseled to not overuse , divert or sell dictations to take medications as prescribed only and to restore medication in safe location. The patient was counseled against driving while using narcotic medications and also not to use alcohol or any illicit recreational drugs. The patient's verbalized understanding that the lack of compliance will result in failure to renew narcotic prescription and possible discharge from the clinic. Diagnoses, prognosis, and treatment options including but not limited to physical therapy, surgical interventions, interventional therapies, and medication management including narcotics and adjuvant medication were discussed with the patient and all the questions answered. I have spent 31 minutes on patient care today. The time was used to review the medical records including relevant urine studies and Prescription history (MAPs), review of the available imaging, evaluation and examination of the patient, coordination of care with the medical staff and if applicable referring physicians, as well as creation of the medical record. PQRS Measure Charge Sheet Mode of Arrival: Ambulatory - Pain Location Bilateral Lower Posterior Back Non-Pharmacological Interventions: Heat, Inactivity, Massage, Physical Therapy, Position/Reposition, Sitting, Stretching Pharmacological Interventions: PRN Medication PQRS Narrative: Smoking Status Former smoker Narcotic Agreement Date Signed 05/19/20 Blood Pressure 173/82 Pain Intensity [Bilateral 8 Lower Posterior Back] Scale Used Numeric (1 - 10) Hx Alcohol Use (MH) Yes: Occasional Home Medications: Ambulatory Orders Omeprazole [PriLOSEC] 20 mg PO QAM 11/24/18 Pravastatin Sodium [Pravachol] 40 mg PO HS 02/27/19 allopurinoL [Zyloprim] 100 mg PO DAILY 10/09/19 Carvedilol [Coreg] 6.25 mg PO BID 11/30/19 Aspirin [Adult Low Dose Aspirin EC] 81 mg PO DAILY 03/23/20 Calcium Carbonate/Vitamin D3 [Calcium 600 mg-Vit D3 5 mcg (200 unit)] 1 tab PO DAILY 06/05/21 INSULIN ASPART (NovoLOG) [NovoLOG (formulary)] See Protocol SQ TID-W/MEALS PRN 06/05/21 Insulin Detemir (Levemir) [Levemir] 16 - 20 unit SQ HS 06/05/21 Tamsulosin HCl [Flomax] 0.4 mg PO W/SUPPER 06/05/21 Clopidogrel [Plavix] 75 mg PO DIRECTED 08/23/21 Gabapentin 300 mg PO TID PRN 08/23/21 Torsemide [Demadex] 10 mg PO DAILY 08/23/21 Pantoprazole [Protonix] 40 mg PO AC-BRKFST #30 tab 10/06/21
== END ==
LOC: PNWHC3 07:45
PROVIDERS: ATTEND Physician Assistant Medical
DX: M51.36 Other intervertebral disc degeneration, lumbar region (principal); M47.816 Spondylosis without myelopathy or radiculopathy, lumbar region; Z79.891 Long term (current) use of opiate analgesic; Z87.891 Personal history of nicotine dependence; Z91.041 Radiographic dye allergy status; Z88.1 Allergy status to other antibiotic agents; Z88.8 Allergy status to other drugs, medicaments and biological substances; Z91.013 Allergy to seafood; Z91.048 Other nonmedicinal substance allergy status
CPT/HCPCS: 80307; G0482; G0463; 99211

== ENCOUNTER → 2021-12-06 | Outpatient (CLI) | payer MEDICARE, BC ==
--- NOTE | 2021-12-06 14:56 | US ---
EXAMINATION TYPE: US kidneys/renal and bladder DATE OF EXAM: 12/06/2021 COMPARISON: CT October 04, 2021 CLINICAL HISTORY: N18.30 CKD stage 3. Diabetic EXAM MEASUREMENTS: Right Kidney: 9.9 x 5.1 x 4.8 cm Left Kidney: 11.9 x 6.0 x 4.3 cm Post Void Residual Volume: 4.9 mL Right Kidney: prominent renal pelvis as measures 1.6cm A/P; hypoechoic, crescent shaped extracapsular area suggests sonographic "sweat sign" for renal failure Left Kidney: lateral cortical cyst is seen = 1.3 x 1.2 x 1.1cm. Bladder: trabeculae noted on booth Bilateral Jets seen: yes Normal Post Void Residual: yes Increased cortical echogenicity in the right kidney. New prominent right renal pelvis. Bladder and ad equately distended with lobulated contour. Bilateral distal ureter jets seen. Left kidney shows incre ased cortical echogenicity and 1.2 cm benign-appearing thin-walled cyst. No left-sided hydronephrosis . IMPRESSION: Evidence of chronic medical renal disease. Possible new mild right-sided hydronephrosis. Consider follow-up study.
== END | disposition home or self-care (01) ==
LOC: RADUSWWP 14:03
PROVIDERS: ATTEND Internal Medicine
DX: E11.22 Type 2 diabetes mellitus with diabetic chronic kidney disease (principal); N18.30 Chronic kidney disease, stage 3 unspecified
CPT/HCPCS: 76770

== ENCOUNTER → 2021-12-26 | Outpatient (CLI) | payer MEDICARE, BC ==
[2021-12-26 11:21] LABS: Appearance,Urine Clear (Clear); Bilirubin,Urine Negative (Negative); Blood,Urine Negative (Negative); Color,Urine Yellow; Glucose,Urine (UA) Negative (Negative); Ketones,Urine Negative (Negative); Leukocyte Esterase,Urine Negative (Negative); Nitrite,Urine Negative (Negative); PH, Urine 5.5 (5.0-8.0); Protein,Urine Trace (Negative); Specific Gravity,Urine 1.022 (1.001-1.035); Urobilinogen,Urine <2.0 mg/dL (<2.0)
[2021-12-26 14:49] LABS: HCT 45.2 % (39.6-50.0); HGB 13.8 g/dL (13.0-17.0); MCH 29.8 pg (27.0-32.0); MCHC 30.5 g/dL (32.0-37.0); MCV 97.6 fL (80.0-97.0); Platelet Count 348 X 10*3/uL (140-440); RBC 4.63 X 10*6/uL (4.40-5.60); RDW 14.4 % (11.5-14.5); WBC 24.51 X 10*3/uL (4.50-10.00)
[2021-12-26 15:14] LABS: % Iron Saturation 24.45 (15.00-50.00); African American GFR (CKD) 49.5 (60.0-200.0); Albumin 3.8 g/dL (3.8-4.9); Albumin/Globulin Ratio 1.41 (1.60-3.17); BUN/Creat Ratio 17.8 Ratio (12.00-20.00); Blood Urea Nitrogen 26.7 mg/dL (9.0-27.0); Calcium 9.1 mg/dL (8.7-10.3); Globulin 2.7 g/dL (1.6-3.3); Non-African American GFR(CKD) 42.7 (60.0-200.0); Phosphorus 2.8 mg/dL (2.4-5.1); Potassium 4.4 mmol/L (3.5-5.5); Total Bilirubin 0.3 mg/dL (0.30-1.20); Total Protein 6.5 g/dL (6.2-8.2); Uric Acid 10.1 mg/dL (3.7-8.7)
== END | disposition home or self-care (01) ==
LOC: LABWHC1 09:03
PROVIDERS: ATTEND Nurse Practitioner Acute Care
DX: E55.9 Vitamin D deficiency, unspecified (principal); D64.9 Anemia, unspecified; M10.9 Gout, unspecified; N18.30 Chronic kidney disease, stage 3 unspecified; N39.0 Urinary tract infection, site not specified; N25.81 Secondary hyperparathyroidism of renal origin
CPT/HCPCS: 36415; 80053; 81003; 82043; 82306; 82570; 82728; 83036; 83540; 83550; 83735; 83970; 84100; 84550; 85027

== ENCOUNTER → 2022-01-22 | Outpatient (CLI) | payer MEDICARE, BC ==
--- NOTE | 2022-01-22 09:58 | P.PN ---
Subjective Progress Note Date: 01/22/22 Principal diagnosis: A 82 yr old male with at side with a history of severe and chronic low back pain secondary to lumbar degenerative disc diseases and lumbar spondylosis with facet arthropathy presents today for medication refills. Pain level is 7/10, on & off over the years, constant, dull, achy. Pain is provoked by activity throughout the day. Pain is alleviated with medications, heat, physical therapy a year ago, massage and laying supine. Pt states the 300mg dosage is ineffective in reducing his pain. Interventional pain procedures completed include TPIs recently Patient is currently on Neurontin 300mg #90 from this clinic Patient denies any side effects of the medication(s), denies excessive drowsiness or sleepiness, denies suicidal ideation and reports that the current pain medication is helping to control the pain and improve activities of daily living. Patient denies any motor or sensory deficits. Patient denies any fever or night sweats, denies any change in the bowel movements or urination. Physical Examination: -Constitutional: Cooperative. Not in acute distress . -HEENT: Neck is supple. No lymphadenopathy. No thyromegaly. Normal thyroid size. Eyes: No ptosis , no icterus, no photophobia. ENT: No auditory deficits. Normal oropharynx. No Thrush. - Respiratory: Chest clear to auscultations bilaterally. No wheezing. No rhonchi. - Cardiovascular: Regular rate and rhythm. S1 / S2 , no S3 , no S4. - Gastrointestinal: Abdomen soft no tenderness. Bowel sounds positive in all four quadrants. No organomegaly. - Genitourinary: Deferred. - Neurologic: Cranial nerve II to XII intact. No focal neurological deficits. - Psychatric: Alert & oriented x 3. Matching mood & appropriate affect. Judgment and insight intact. - Lymphatic: No Lymphadenopathy. - Musculoskeletal: Cervical spine: Muscle bulk/ tone/ strength in the bilateral upper extremities normal. Facet loading test cervical area positive. Lumbar spine: Motor bulk/ tone/ strength lower extremities , thigh and legs : 5/5 Deep tendon reflexes : Normal Knee Jerk. Normal Ankle Jerk . Vertebral body tenderness to palpation over L4 Lumbar Facet Loading Test positive Straight Leg Raise: positive at 30 degrees right side/ left side Gaenslen's Test positive Sacral spine : Severe tenderness over the Sacroiliac joint: right side / left side Range of motion: Flexion of the lumbar spine <60 degrees Range of motion: Extension of the lumbar spine <20 degrees Gaenslen's Test positive Estelita test: positive right side / left side Assessment and plan: Chronic low back pain secondary to lumbar degenerative disc disease , lumbar spondylosis with facet arthropathy without myelopathy Chronic and current use of high-risk medication (Opioids). The patient was counseled about risk of opioid use, psychological risk associated with opioids and was orally counseled to not overuse , divert or sell medications. Pt is to store medication in a safe location. The patient is counseled against driving while using narcotic medications and also not to use alcohol or any illicit recreational drugs. Patient verbalized understanding that the lack of compliance will result in failure to renew narcotic prescription(s) as well as possible discharge from the clinic Diagnoses, prognosis and treatment options including but not limited to physical therapy, surgical interventions, interventional therapies and medication management including narcotics and adjuvant medication were discussed. All patient questions answered MAPS reviewed and it was appropriate. Prescription filedl for Neurontin 400 mg #90 with 1 refill I have spent 31 minutes on patient care today. Dr Shore was available by phone for the evaluation of this patient. The time was used to review the medical records including relevant urine studies and Prescription history (MAPs), review of the available imaging, evaluation and examination of the patient, coordination of care with the medical staff and if applicable referring physicians, as well as creation of the medical record PQRS Measure Charge Sheet PQRS Narrative: Smoking Status Former smoker Narcotic Agreement Date Signed 05/19/20 Pain Intensity [Back] 7 Hx Alcohol Use (MH) Yes: Occasional Home Medications: Ambulatory Orders Omeprazole [PriLOSEC] 20 mg PO QA 11/24/18 Pravastatin Sodium [Pravachol] 40 mg PO HS 02/27/19 allopurinoL [Zyloprim] 100 mg PO DAILY 10/09/19 Carvedilol [Coreg] 6.25 mg PO BID 11/30/19 Calcium Carbonate/Vitamin D3 [Calcium 600 mg-Vit D3 5 mcg (200 unit)] 1 tab PO DAILY 06/05/21 INSULIN ASPART (NovoLOG) [NovoLOG (formulary)] See Protocol SQ TID-W/MEALS PRN 06/05/21 Insulin Detemir (Levemir) [Levemir] 16 - 20 unit SQ HS 06/05/21 Tamsulosin HCl [Flomax] 0.4 mg PO W/SUPPER 06/05/21 Clopidogrel [Plavix] 75 mg PO DAILY 08/23/21 Torsemide [Demadex] 10 mg PO DAILY 08/23/21 Pantoprazole [Protonix] 40 mg PO AC-BRKFST #30 tab 10/06/21 Gabapentin 400 mg PO TID PRN 30 Days #60 tab 01/22/22
[2022-01-22 11:17] VITALS: BP 158/82; PULSE 86; RESP 18; TEMP 98.5
== END ==
LOC: PNWHC3 08:57
PROVIDERS: ATTEND Physician Assistant Medical
DX: G89.29 Other chronic pain (principal); M51.36 Other intervertebral disc degeneration, lumbar region; M47.816 Spondylosis without myelopathy or radiculopathy, lumbar region; Z79.891 Long term (current) use of opiate analgesic; Z87.891 Personal history of nicotine dependence; Z88.8 Allergy status to other drugs, medicaments and biological substances; Z88.1 Allergy status to other antibiotic agents; Z91.041 Radiographic dye allergy status; Z91.048 Other nonmedicinal substance allergy status; Z91.013 Allergy to seafood
CPT/HCPCS: 99211

== ENCOUNTER → 2022-03-19 | Outpatient (CLI) | payer MEDICARE, BC | LOC: PNWHC3 11:07 | PROVIDERS: ATTEND Specialist | DX: M54.50 Low back pain, unspecified (principal); Z88.1 Allergy status to other antibiotic agents; Z91.013 Allergy to seafood; Z91.048 Other nonmedicinal substance allergy status; Z91.041 Radiographic dye allergy status; Z88.8 Allergy status to other drugs, medicaments and biological substances; Z87.891 Personal history of nicotine dependence | CPT/HCPCS: 99211 ==

== ENCOUNTER → 2022-05-14 | Outpatient (CLI) | payer MEDICARE, BC ==
--- NOTE | 2022-05-14 10:47 | P.PAINPG ---
Objective - Vital Signs Vital signs: Intake & Output 05/13/22 05/14/22 05/14/22 18:59 06:59 18:59 Weight 200 kg PQRS Measure Charge Sheet Comment: A 82 yr old male with at side with a history of severe and chronic low back pain secondary to lumbar degenerative disc diseases and lumbar spondylosis with facet arthropathy presents today for medication refills. Pain level is currently at 5 out of 10 intensity, constant, achy in the mid to lower aspects of his lumbar spine without radiation of pain. Pain escalates as high as 10 out of 10 in intensity every morning. Pain is alleviated slightly with medications (Neurontin), injections in the past which provided little relief, heat, 6 weeks of physical therapy integrated with massage in March 2022, repositioning and rest. Interventional pain procedures completed include BL SI injections, TPIs Patient is currently on Neurontin 400 mg #90 Patient denies any side effects of the medication(s), denies excessive drowsiness or sleepiness, denies suicidal ideation and reports that the current pain medication is helping to control the pain and improve activities of daily living. Patient denies any motor or sensory deficits. Patient denies any fever or night sweats, denies any change in the bowel movements or urination. Physical Examination: -Constitutional: Cooperative. Not in acute distress . -HEENT: Neck is supple. No lymphadenopathy. No thyromegaly. Normal thyroid size. Eyes: No ptosis , no icterus, no photophobia. ENT: No auditory deficits. Normal oropharynx. No Thrush. - Respiratory: Chest clear to auscultations bilaterally. No wheezing. No rhonchi. - Cardiovascular: Regular rate and rhythm. S1 / S2 , no S3 , no S4. - Gastrointestinal: Abdomen soft no tenderness. Bowel sounds positive in all four quadrants. No organomegaly. - Genitourinary: Deferred. - Neurologic: Cranial nerve II to XII intact. No focal neurological deficits. - Psychatric: Alert & oriented x 3. Matching mood & appropriate affect. Judgment and insight intact. - Lymphatic: No Lymphadenopathy. - Musculoskeletal: Cervical spine: Muscle bulk/ tone/ strength in the bilateral upper extremities normal Vertebral body tenderness to palpation over Facet loading test positive Thoracic spine Muscle bulk / tone/ strength in the bilateral paraspinal muscles normal Vertebral body tender to palpation over Facet loading test positive Lumbar spine: Motor bulk/ tone/ strength lower extremities , thigh and legs : 5/5 Deep tendon reflexes : Normal Knee Jerk. Normal Ankle Jerk . Vertebral body tenderness to palpation over L4, L5 Lumbar Facet Loading Test positive with accompanying paraspinal muscle spasms Straight Leg Raise: positive at 30 degrees right side/ left side Gaenslen's Test positive Sacral spine : Severe tenderness over the Sacroiliac joint: right side / left side Range of motion: Flexion of the lumbar spine <60 degrees Range of motion: Extension of the lumbar spine <20 degrees Gaenslen's Test positive Adán's Test positive Estelita test: positive right side / left side Thigh Thrust Test Sacral Thrust Test Assessment and plan: Chronic low back pain secondary to lumbar degenerative disc disease , lumbar spondylosis with facet arthropathy without myelopathy Chronic and current use of high-risk medication (Opioids). The patient was counseled about risk of opioid use, psychological risk associated with opioids and was orally counseled to not overuse , divert or sell medications. Pt is to store medication in a safe location. The patient is counseled against driving while using narcotic medications and also not to use alcohol or any illicit recreational drugs. Patient verbalized understanding that the lack of compliance will result in failure to renew narcotic prescription(s) as well as possible discharge from the clinic Diagnoses, prognosis and treatment options including but not limited to physical therapy, surgical interventions, interventional therapies and me dication management including narcotics and adjuvant medication were discussed. All patient questions answered MAPS reviewed and it was appropriate. Urine collected for UDS today 05/14/22 Prescription refill for Neurontin 400 mg #90 with 1 refill. And Ultram 50 mg #60 with 1 refill I have spent 31 minutes on patient care today. Dr Shore was available by phone for the evaluation of this patient. The time was used to review the medical records including relevant urine studies and Prescription history (MAPs), review of the available imaging, evaluation and examination of the patient, coordination of care with the medical staff and if applicable referring physicians, as well as creation of the medical record PQRS Narrative: Smoking Status Former smoker Narcotic Agreement Date Signed 05/19/20 Hx Alcohol Use (MH) Yes: Occasional Home Medications: Ambulatory Orders Omeprazole [PriLOSEC] 20 mg PO QAM 11/24/18 Pravastatin Sodium [Pravachol] 40 mg PO HS 02/27/19 allopurinoL [Zyloprim] 100 mg PO DAILY 10/09/19 carvediloL [Coreg] 6.25 mg PO BID 11/30/19 Calcium Carbonate/Vitamin D3 [Calcium 600 mg-Vit D3 5 mcg (200 unit)] 1 tab PO DAILY 06/05/21 INSULIN ASPART (NovoLOG) [NovoLOG (formulary)] See Protocol SQ TID-W/MEALS PRN 06/05/21 Insulin Detemir (Levemir) [Levemir] 16 - 20 unit SQ HS 06/05/21 Tamsulosin HCl [Flomax] 0.4 mg PO W/SUPPER 06/05/21 Clopidogrel [Plavix] 75 mg PO DAILY 08/23/21 Torsemide [Demadex] 10 mg PO DAILY 08/23/21 Pantoprazole [Protonix] 40 mg PO AC-BRKFST #30 tab 10/06/21 Gabapentin 400 mg PO TID PRN 30 Days #60 tab 01/22/22 Controlled Substance Measures - Controlled Substance Measures Is patient prescribed a controlled substance at discharge?: Yes When asked, does pt state using other controlled substances?: Yes If prescribed controlled substance>3 days was MAPS reviewed?: Yes If Rx opioid, was Start Talking consent form obtained?: Yes If opioid is for acute pain is fill amount 7 days or less?: Yes Was information provided regarding opioid addiction?: Yes
[2022-05-14 11:04] VITALS: BP 142/68; PULSE 72; RESP 18; TEMP 97.7
== END ==
LOC: PNWHC3 10:21
PROVIDERS: ATTEND Specialist
DX: G89.29 Other chronic pain (principal); M51.36 Other intervertebral disc degeneration, lumbar region; M47.816 Spondylosis without myelopathy or radiculopathy, lumbar region; Z79.891 Long term (current) use of opiate analgesic; Z87.891 Personal history of nicotine dependence; Z88.8 Allergy status to other drugs, medicaments and biological substances; Z88.1 Allergy status to other antibiotic agents; Z91.041 Radiographic dye allergy status; Z91.013 Allergy to seafood; Z91.048 Other nonmedicinal substance allergy status
CPT/HCPCS: 80307; G0482; G0463; 99212

== ENCOUNTER 2022-06-25 16:35 | Inpatient (IN) | payer MEDICARE, BC ==
[2022-06-25] MEDS ORDERED: NITROGLYCERIN OINT 1 INCH/GM PACKET TOPICAL STA (17:23)
[2022-06-25] MEDS ORDERED: ASPIRIN 81 MG PO STA (17:23)
--- NOTE | 2022-06-25 17:27 | ED ---
General Adult HPI - General Chief complaint: Chest Pain Stated complaint: chest pain Time Seen by Provider: 06/25/22 17:05 Source: patient, family, RN notes reviewed, old records reviewed Mode of arrival: ambulatory Limitations: no limitations - History of Present Illness Initial comments: This is a 82-year-old male who presents emergency Department complaining that he had chest pain since Saturday. Patient has had a stent placed in the past. 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 Patient states the chest pain is also causing him some shortness of breath. He denies any radiation of the pain he denies any diaphoretic episode he denies any nausea. Patient denies any recent fever chills states he has a slight cough. Patient denies any abdominal pain patient denies any headache patient denies numbness weakness patient denies any lightheadedness or dizziness. Patient denies any swelling to the legs or calf tenderness. - Related Data Home Medications Medication Instructions Recorded Confirmed Omeprazole [PriLOSEC] 20 mg PO QAM 11/24/18 05/14/22 Pravastatin Sodium [Pravachol] 40 mg PO HS 02/27/19 05/14/22 allopurinoL [Zyloprim] 100 mg PO DAILY 10/09/19 05/14/22 carvediloL [Coreg] 6.25 mg PO BID 11/30/19 05/14/22 Calcium Carbonate/Vitamin D3 1 tab PO DAILY 06/05/21 05/14/22 [Calcium 600 mg-Vit D3 5 mcg (200 unit)] INSULIN ASPART (NovoLOG) [NovoLOG See Protocol SQ TID-W/MEALS PRN 06/05/21 05/14/22 (formulary)] Insulin Detemir (Levemir) [Levemir] 16 - 20 unit SQ HS 06/05/21 05/14/22 Tamsulosin HCl [Flomax] 0.4 mg PO W/SUPPER 06/05/21 05/14/22 Clopidogrel [Plavix] 75 mg PO DAILY 08/23/21 05/14/22 Torsemide [Demadex] 10 mg PO DAILY 08/23/21 05/14/22 Previous Rx's Medication Instructions Recorded Pantoprazole [Protonix] 40 mg PO AC-BRKFST #30 tab 11/12/21 Gabapentin 400 mg PO TID PRN 30 Days #90 tab 05/14/22 traMADol HCl [Ultram] 50 mg PO Q12HR PRN 30 Days #60 tab 05/14/22 Allergies Allergy/AdvReac Type Severity Reaction Status Date / Time amlodipine Allergy swelling Verified 06/25/22 17:02 of feet doxycycline Allergy Anaphylaxis Verified 06/25/22 17:02 Iodinated Contrast Media Allergy Anaphylaxis Verified 06/25/22 17:02 [Iodinated Contrast- Oral and IV Dye] iodine Allergy Anaphylaxis Verified 06/25/22 17:02 losartan Allergy dizziness Verified 06/25/22 17:02 metronidazole [From Flagyl] Allergy Rash/Hives Verified 06/25/22 17:02 shrimp Allergy Rash/Hives Verified 06/25/22 17:02 acarbose AdvReac Abdominal Verified 06/25/22 17:02 Pain adhesive tape AdvReac SKIN PULLS Verified 06/25/22 17:02 OFF " amoxicillin trihydrate AdvReac Nausea & Verified 06/25/22 17:02 [From Augmentin] Vomiting potassium clavulanate AdvReac Nausea & Verified 06/25/22 17:02 [From Augmentin] Vomiting Review of Systems ROS Statement: Those systems with pertinent positive or pertinent negative responses have been documented in the HPI. ROS Other: All systems not noted in ROS Statement are negative. Past Medical History Past Medical History: CVA/TIA, Diabetes Mellitus, GERD/Reflux, Hearing Disorder / Deafness, Hyperlipidemia, Hypertension, Musculoskeletal Disorder, Pneumonia, Renal Disease, Rheumatoid Arthritis (RA), Thyroid Disorder Additional Past Medical History / Comment(s): "Weak and tired today per spouse ". LOW IRON LEVELS AND FATIGUE. Hx CMP w/ BiVICD. Interstitial lung disease/rheumatoid lung, gout, CVA in 2005- no residual effects, hiatal hernia, hx bronchitis, spouse states "had West Nile Virus, possibly Lyme disease", chronic back pain, recent adm. due to CVA, hx. chronic elevated white count, anemia per spouse. History of Any Multi-Drug Resistant Organisms: None Reported Past Surgical History: AICD, Appendectomy, Back Surgery, Heart Catheterization, Joint Replacement, Tonsillectomy Additional Past Surgical History / Comment(s): Biventricular AICD placement/[employer], battery change r/t recall, Back surgery X6, colonoscopy, past hx of pain clinic procedure, cataract sx, Oral sx "to smooth down bones in mouth." 01/18/20 RT TOTAL KNEE; 02/24/20 Repair Rt knee tendon. Past Anesthesia/Blood Transfusion Reactions: No Reported Reaction Additional Past Anesthesia/Blood Transfusion Reaction / Comment(s): Blood transfusion-no reaction, BP was high when came in for his 1st pain procedure- procedure was cancelled- states no problem since. Type of Cardiac Device: AICD Device Placement Date:: 2016 Past Psychological History: No Psychological Hx Reported Smoking Status: Former smoker - Past Family History Father History Unknown: Yes Mother Family Medical History: Hyperlipidemia, Hypertension, Myocardial Infarction ([place]) Additional Family Medical History / Comment(s): . General Exam - General Exam Comments Initial Comments: GENERAL: Patient is well-developed and well-nourished. Patient is nontoxic and well- hydrated and is in mild distress. ENT: Neck is soft and supple. No significant lymphadenopathy is noted. Oropharynx is clear. Moist mucous membranes. Neck has full range of motion without eliciting any pain. EYES: The sclera were anicteric and conjunctiva were pink and moist. Extraocular movements were intact and pupils were equal round and reactive to light. Eyelids were unremarkable. PULMONARY: Unlabored respirations. Good breath sounds bilaterally. No audible rales rhonchi or wheezing was noted. CARDIOVASCULAR: There is a regular rate and rhythm without any murmurs gallops or rubs. ABDOMEN: Soft and nontender with normal bowel sounds. SKIN: Skin is clear with no lesions or rashes and otherwise unremarkable. NEUROLOGIC: Patient is alert and oriented x3. Cranial nerves II through XII are grossly intact. Motor and sensory are also intact. Normal speech, volume and content. Symmetrical smile. MUSCULOSKELETAL: Normal extremities with adequate strength and full range of motion. No lower extremity swelling or edema. No calf tenderness. LYMPHATICS: No significant lymphadenopathy is noted PSYCHIATRIC: Normal psychiatric evaluation. N Limitations: no limitations Course Vital Signs 06/25/22 06/25/22 16:50 18:29 Temperature 97.8 F Pulse Rate 63 79 Respiratory 20 18 Rate Blood Pressure 184/65 172/90 O2 Sat by Pulse 96 97 Oximetry Medical Decision Making - Medical Decision Making EKG shows a paced rhythm at 62 bpm [place] interval 147 QRS is under 50 QT intervals 491 QTC is 496. Chest x-ray shows mild pulmonary edema. I spoke with Dr. Trammell and he agreed with the patient admitted the patient wrote admitting orders. Patient was also started on heparin I Ever running on the floor as well as Nitropaste. - Lab Data Result diagrams: 06/25/22 17:35 06/25/22 17:35 Lab Results 06/25/22 06/25/22 06/25/22 Range/Units 17:35 17:35 17:35 WBC 13.7 H (3.8-10.6) k/uL RBC 4.89 (4.30-5.90) m/uL Hgb 14.3 (13.0-17.5) gm/dL Hct 45.7 (39.0-53.0) % MCV 93.4 (80.0-100.0) fL MCH 29.3 (25.0-35.0) pg MCHC 31.3 (31.0-37.0) g/dL RDW 14.3 (11.5-15.5) % Plt Count 285 (150-450) k/uL MPV 8.2 Neutrophils % 58 % Lymphocytes % 34 % Monocytes % 4 % Eosinophils % 2 % Basophils % 0 % Neutrophils # 7.9 H (1.3-7.7) k/uL Lymphocytes # 4.6 (1.0-4.8) k/uL Monocytes # 0.5 (0-1.0) k/uL Eosinophils # 0.2 (0-0.7) k/uL Basophils # 0.0 (0-0.2) k/uL Hypochromasia Slight PT 9.6 (9.0-12.0) sec INR 0.9 (<1.2) APTT 21.9 L (22.0-30.0) sec Sodium 134 L (137-145) mmol/L Potassium 4.2 (3.5-5.1) mmol/L Chloride 101 (98-107) mmol/L Carbon Dioxide 25 (22-30) mmol/L Anion Gap 8 mmol/L BUN 24 H (9-20) mg/dL Creatinine 1.55 H (0.66-1.25) mg/dL Est GFR (CKD-EPI)AfAm 47 (>60 ml/min/1.73 sqM) Est GFR (CKD-EPI)NonAf 41 (>60 ml/min/1.73 sqM) Glucose 408 H (74-99) mg/dL POC Glucose (mg/dL) (70-110) mg/dL POC Glu Volunteer Coordinator ID Calcium 8.5 (8.4-10.2) mg/dL Magnesium 1.6 (1.6-2.3) mg/dL Total Bilirubin 0.7 (0.2-1.3) mg/dL AST 16 L (17-59) U/L ALT 14 (4-49) U/L Alkaline Phosphatase 81 (38-126) U/L Troponin I (0.000-0.034) ng/mL Total Protein 6.5 (6.3-8.2) g/dL Albumin 3.7 (3.5-5.0) g/dL 06/25/22 06/25/22 Range/Units 17:35 18:57 WBC (3.8-10.6) k/uL RBC (4.30-5.90) m/uL Hgb (13.0-17.5) gm/dL Hct (39.0-53.0) % MCV (80.0-100.0) fL MCH (25.0-35.0) pg MCHC (31.0-37.0) g/dL RDW (11.5-15.5) % Plt Count (150-450) k/uL MPV Neutrophils % % Lymphocytes % % Monocytes % % Eosinophils % % Basophils % % Neutrophils # (1.3-7.7) k/uL Lymphocytes # (1.0-4.8) k/uL Monocytes # (0-1.0) k/uL Eosinophils # (0-0.7) k/uL Basophils # (0-0.2) k/uL Hypochromasia PT (9.0-12.0) sec INR (<1.2) APTT (22.0-30.0) sec Sodium (137-145) mmol/L Potassium (3.5-5.1) mmol/L Chloride (98-107) mmol/L Carbon Dioxide (22-30) mmol/L Anion Gap mmol/L BUN (9-20) mg/dL Creatinine (0.66-1.25) mg/dL Est GFR (CKD-EPI)AfAm (>60 ml/min/1.73 sqM) Est GFR (CKD-EPI)NonAf (>60 ml/min/1.73 sqM) Glucose (74-99) mg/dL POC Glucose (mg/dL) 372 H (70-110) mg/dL POC Glu Volunteer Coordinator PALMA Randolhp Gary Calcium (8.4-10.2) mg/dL Magnesium (1.6-2.3) mg/dL Total Bilirubin (0.2-1.3) mg/dL AST (17-59) U/L ALT (4-49) U/L Alkaline Phosphatase (38-126) U/L Troponin I 0.245 H* (0.000-0.034) ng/mL Total Protein (6.3-8.2) g/dL Albumin (3.5-5.0) g/dL Critical Care Time Critical Care Time: Yes Total Critical Care Time: 35 Disposition Clinical Impression: Acute non-ST elevation myocardial infarction (NSTEMI), Pulmonary edema, Hyperglycemia Disposition: ADMITTED IP TO THIS HOSP Referrals: Basim Thurston [Primary Care Provider] - 1-2 days Time of Disposition: 19:04
[2022-06-25 17:43] LABS: Basophils % (A) 0 %; Eosinophils # (A) 0.2 k/uL (0-0.7); Eosinophils % (A) 2 %; HCT 45.7 % (39.0-53.0); HGB 14.3 gm/dL (13.0-17.5); Hypochromasia Slight; Lymphocytes # (A) 4.6 k/uL (1.0-4.8); Lymphocytes % (A) 34 %; MCH 29.3 pg (25.0-35.0); MCHC 31.3 g/dL (31.0-37.0); MCV 93.4 fL (80.0-100.0); Mean Platelet Volume 8.2; Monocytes # (A) 0.5 k/uL (0-1.0); Monocytes % (A) 4 %; Neutrophils # (A) 7.9 k/uL (1.3-7.7); Neutrophils % (A) 58 %; Platelet Count 285 k/uL (150-450); RBC 4.89 m/uL (4.30-5.90); RDW 14.3 % (11.5-15.5); WBC 13.7 k/uL (3.8-10.6)
[2022-06-25 17:53] LABS: Albumin 3.7 g/dL (3.5-5.0); Calcium 8.5 mg/dL (8.4-10.2); Magnesium 1.6 mg/dL (1.6-2.3); Potassium 4.2 mmol/L (3.5-5.1); Total Bilirubin 0.7 mg/dL (0.2-1.3); Total Protein 6.5 g/dL (6.3-8.2)
[2022-06-25 18:06] LABS: INR 0.9 (<1.2); Partial Thromboplastin Time 21.9 sec (22.0-30.0); Prothrombin Time 9.6 sec (9.0-12.0)
[2022-06-25] MEDS ORDERED: HEPARIN SOD,PORK IN 0.45% NACL 25,000 UNIT in 0.45% NACL 1 250ML.BAG IV SCH ×2 (18:30)
[2022-06-25] MEDS ORDERED: INSULIN ASPART (NovoLOG) 100 UNIT/ML VIAL SQ ONE (18:35)
--- NOTE | 2022-06-25 18:48 | XR ---
EXAMINATION TYPE: XR chest 2V DATE OF EXAM: 06/25/2022 COMPARISON: 05/02/2022 HISTORY: Chest pain TECHNIQUE: 2 view FINDINGS: Heart is enlarged. There is pulmonary mild interstitial and airspace edema. No significant pleural fluid. There is left axillary pacemaker. IMPRESSION: There is some mild pulmonary edema and consistent with heart failure that is increased co mpared to the old exam.
[2022-06-25 18:59] LABS: Glucose,Whole Blood 372 mg/dL (70-110)
[2022-06-25 20:16] LABS: Glucose,Whole Blood 288 mg/dL (70-110)
[2022-06-25] MEDS: NITROGLYCERIN OINT 1 INCH/GM PACKET TOPICAL SCH (23:59)
[2022-06-26] MEDS ORDERED: DEXTROSE 50% SYRINGE 50 ML IVP PRN ×2 (00:39)
--- NOTE | 2022-06-26 00:41 | P.HPIM ---
History of Present Illness H&P Date: 06/25/22 The patient is an 82-year-old male with a PMH of carotid stenosis status post revascularization, AICD placement, chronic kidney disease, type II DM, hypertension, and hyperlipidemia who presents to the emergency room with complaints of chest discomfort. The patient reports that his pain started joie denly this past Saturday while he was at rest. Reports that it was initially 7 out of 10 on maximal intensity, somewhat exertional, constant, substernal, nonradiating, without any associated symptoms. He denied experiencing shortness of breath, nausea, diaphoresis, or dizziness. He reports that the pain persisted, at which time he decided to come to the emergency room. At time of interview, reports that his pain had improved significantly, and was a 2 out of 10. Chest x-ray in the emergency room revealed mild pulmonary edema with EKG showing V paced rhythm at 62 bpm. Laboratory evaluation was remarkable for troponin of 0.245, BUN 24, creatinine 1.55, and WBC count 13.7. Review of systems: Pertinent positives and negatives as discussed in HPI, a complete review of systems was performed and all other systems are negative. Physical examination: General: non toxic, no distress, appears at stated age, overweight Derm: no unusual rashes/lesions, warm Head: atraumatic, normocephalic, symmetric Eyes: EOMI, no lid lag, anicteric sclera, pupils equal round reactive to light ENT: Nose and ears atraumatic Neck: No cervical lymphadenopathy, trachea midline, supple Mouth: no lip lesion, mucus membranes moist Cardiovascular: S1S2 reg, no murmur, positive dorsalis pedis pulse bilateral, no edema Lungs: CTA bilateral, no rhonchi, no rales, no accessory muscle use Abdominal: soft, nontender to palpation, no guarding Ext: muscle strength 5 out of 5 in all 4 extremities grossly, no gross muscle atrophy, no contractures, Neuro: CN II-XI grossly intact, no gross focal neuro deficits Psych: Alert, oriented, appropriate affect Assessment/plan Non-ST elevation MA -Continue with heparin infusion -Aspirin, statin -Cardiac monitoring -Cardiology consulted -Trend troponin Leukocytosis -No signs of active infection at this time -Likely due to acute stressor Chronic conditions: Hypertension, hyperlipidemia, chronic kidney disease, type II DM -Continue with home meds -Insulin sliding scale blood glucose monitoring DVT prophylaxis -Heparin infusion The patient is admitted with an anticipated greater than 2 midnight stay for evaluation of chest pain. CODE STATUS: Full Code Discussed with: Patient Anticipated discharge date: 06/[address]: Home Past Medical History Past Medical History: CVA/TIA, Diabetes Mellitus, GERD/Reflux, Hearing Disorder / Deafness, Hyperlipidemia, Hypertension, Musculoskeletal Disorder, Pneumonia, Renal Disease, Rheumatoid Arthritis (RA), Thyroid Disorder Additional Past Medical History / Comment(s): "Weak and tired today per spouse ". LOW IRON LEVELS AND FATIGUE. Hx CMP w/ BiVICD. Interstitial lung disease/rheumatoid lung, gout, CVA in 2005- no residual effects, hiatal hernia, hx bronchitis, spouse states "had West Nile Virus, possibly Lyme disease", chronic back pain, recent adm. due to CVA, hx. chronic elevated white count, anemia per spouse. History of Any Multi-Drug Resistant Organisms: None Reported Past Surgical History: AICD, Appendectomy, Back Surgery, Heart Catheterization, Joint Replacement, Tonsillectomy Additional Past Surgical History / Comment(s): Biventricular AICD placement/[employer], battery change r/t recall, Back surgery X6, colonoscopy, past hx of pain clinic procedure, cataract sx, Oral sx "to smooth down bones in mouth." 01/18/20 RT TOTAL KNEE; 02/24/20 Repair Rt knee tendon. Past Anesthesia/Blood Transfusion Reactions: No Reported Reaction Additional Past Anesthesia/Blood Transfusion Reaction / Comment(s): Blood transfusion-no reaction, BP was high when came in for his 1st pain procedure- procedure was cancelled- states no problem since. Type of Cardiac Device: AICD Device Placement Date:: 2016 Past Psychological History: No Psychological Hx Reported Additional Psychological History / Comment(s): . Smoking Status: Former smoker Past Alcohol Use History: Occasional Additional Past Alcohol Use History / Comment(s): STARTED SMOKING AT AGE 16, SMOKED 1- 2 1/2 PPD, QUIT IN 1980. Past Drug Use History: None Reported Additional Drug Use History / Comment(s): . - Past Family History Father History Unknown: Yes Mother Family Medical History: Hyperlipidemia, Hypertension, Myocardial Infarction ([place]) Additional Family Medical History / Comment(s): . Medications and Allergies Home Medications Medication Instructions Recorded Confirmed Type Omeprazole [PriLOSEC] 20 mg PO DAILY 11/24/18 06/25/22 History Pravastatin Sodium [Pravachol] 40 mg PO HS 02/27/19 06/25/22 History allopurinoL [Zyloprim] 100 mg PO DAILY 10/09/19 06/26/22 History carvediloL [Coreg] 6.25 mg PO BID 11/30/19 06/25/22 History Calcium Carbonate/Vitamin D3 1 tab PO DAILY 06/05/21 06/25/22 History [Calcium 600 mg-Vit D3 5 mcg (200 unit)] INSULIN ASPART (NovoLOG) [NovoLOG See Protocol SQ TID-W/MEALS PRN 06/05/21 06/25/22 History (formulary)] Insulin Detemir (Levemir) [Levemir] 26 unit SQ HS 06/05/21 06/25/22 History Clopidogrel [Plavix] 75 mg PO DAILY 08/23/21 06/25/22 History Torsemide [Demadex] 10 mg PO Q48H 08/23/21 06/26/22 History traMADol HCl [Ultram] 50 mg PO Q12HR PRN 30 Days #60 tab 05/14/22 06/25/22 Rx Gabapentin 600 mg PO TID PRN 06/25/22 06/25/22 History predniSONE 10 mg PO DAILY 06/25/22 06/25/22 History Allergies Allergy/AdvReac Type Severity Reaction Status Date / Time amlodipine Allergy swelling Verified 06/25/22 19:54 of feet doxycycline Allergy Anaphylaxis Verified 06/25/22 19:54 Iodinated Contrast Media Allergy Anaphylaxis Verified 06/25/22 19:54 [Iodinated Contrast- Oral and IV Dye] iodine Allergy Anaphylaxis Verified 06/25/22 19:54 losartan Allergy dizziness Verified 06/25/22 19:54 metronidazole [From Flagyl] Allergy Rash/Hives Verified 06/25/22 19:54 shrimp Allergy Rash/Hives Verified 06/25/22 19:54 acarbose AdvReac Abdominal Verified 06/25/22 19:54 Pain adhesive tape AdvReac SKIN PULLS Verified 06/25/22 19:54 OFF " amoxicillin trihydrate AdvReac Nausea & Verified 06/25/22 19:54 [From Augmentin] Vomiting potassium clavulanate AdvReac Nausea & Verified 06/25/22 19:54 [From Augmentin] Vomiting Physical Exam Vitals: Vital Signs Temp Pulse Resp BP Pulse Ox 06/25/22 18:29 79 18 172/90 97 06/25/22 16:50 97.8 F 63 20 184/65 96 Intake and Output 06/25/22 06/25/22 06/26/22 14:59 22:59 06:59 Other: Weight 92.079 kg Results CBC & Chem 7: 06/25/22 17:35 06/25/22 17:35 Labs: Abnormal Lab Results - Last 24 Hours (Table) 06/25/22 06/25/22 06/25/22 Range/Units 17:35 17:35 17:35 WBC 13.7 H (3.8-10.6) k/uL Neutrophils # 7.9 H (1.3-7.7) k/uL APTT 21.9 L (22.0-30.0) sec Sodium 134 L (137-145) mmol/L BUN 24 H (9-20) mg/dL Creatinine 1.55 H (0.66-1.25) mg/dL Glucose 408 H (74-99) mg/dL POC Glucose (mg/dL) (70-110) mg/dL AST 16 L (17-59) U/L Troponin I (0.000-0.034) ng/mL 06/25/22 06/25/22 06/25/22 Range/Units 17:35 18:57 19:29 WBC (3.8-10.6) k/uL Neutrophils # (1.3-7.7) k/uL APTT (22.0-30.0) sec Sodium (137-145) mmol/L BUN (9-20) mg/dL Creatinine (0.66-1.25) mg/dL Glucose (74-99) mg/dL POC Glucose (mg/dL) 372 H (70-110) mg/dL AST (17-59) U/L Troponin I 0.245 H* 0.181 H* (0.000-0.034) ng/mL 06/25/22 06/25/22 Range/Units 20:14 22:04 WBC (3.8-10.6) k/uL Neutrophils # (1.3-7.7) k/uL APTT (22.0-30.0) sec Sodium (137-145) mmol/L BUN (9-20) mg/dL Creatinine (0.66-1.25) mg/dL Glucose (74-99) mg/dL POC Glucose (mg/dL) 288 H (70-110) mg/dL AST (17-59) U/L Troponin I 0.174 H* (0.000-0.034) ng/mL Thrombosis Risk Factor Assmnt - Choose All That Apply Any of the Below Risk Factors Present?: Yes Each Factor Represents 1 point: Abnormal pulmonary function (COPD), Obesity (BMI >25) Each Risk Factor Represents 3 Points: Age 75 years or older Other congenital or acquired thrombophilia - If yes, enter type in comment: No Thrombosis Risk Factor Assessment Total Risk Factor Score: 5 Thrombosis Risk Factor Assessment Level: High Risk
[2022-06-26] MEDS: NITROGLYCERIN SL TABS 0.4 MG TAB SUBLINGUAL PRN ×4 (00:56→01:09)
[2022-06-26] MEDS: ATORVASTATIN 80 MG TAB PO SCH ×2 (02:47→22:19)
[2022-06-26 06:08] LABS: Glucose,Whole Blood 106 mg/dL (70-110)
[2022-06-26] MEDS: INSULIN ASPART (NovoLOG) 100 UNIT/ML VIAL SQ SCH ×9 (06:29→22:20)
[2022-06-26] MEDS: carvediloL 6.25 MG TAB PO SCH ×2 (06:50→17:00)
[2022-06-26] MEDS: NITROGLYCERIN OINT 1 INCH/GM PACKET TOPICAL SCH ×4 (06:50→23:17)
[2022-06-26] MEDS: MORPHINE SULFATE 2 MG/ML SYRINGE IVP PRN ×3 (06:54→23:20)
[2022-06-26] MEDS: allopurinoL 100 MG TAB PO SCH (08:36)
[2022-06-26] MEDS: CLOPIDOGREL 75 MG TAB PO SCH (08:36)
[2022-06-26] MEDS: LOSARTAN 25 MG TAB PO SCH (08:37)
[2022-06-26] MEDS: ASPIRIN 81 MG PO SCH (08:37)
[2022-06-26] MEDS: SPIRONOLACTONE 25 MG TAB PO SCH (08:37)
[2022-06-26] MEDS ORDERED: ASPIRIN 325 MG TAB PO SCH (09:00)
[2022-06-26 09:04] LABS: Chol/HDL Ratio 2.71 Ratio; LDL Cholesterol,Calculated 71.2 mg/dL (0.0-131.0); VLDL Calculation 19.14 mg/dL (5.00-40.00)
[2022-06-26] MEDS ORDERED: ALBUTEROL NEBULIZED 2.5 MG/3 ML INHALATION PRN (10:33)
--- NOTE | 2022-06-26 10:34 | P.CRDCN ---
History of Present Illness Consult date: 06/26/22 Chief complaint: Chest pain History of present illness: This is an 82-year-old gentleman who I see in the office as an outpatient with a past medical history significant for history of nonischemic cardiomyopathy, history of ventricular tachycardia status post AICD, history of carotid atherosclerosis with prior revascularization, as well as hypertension and dyslipidemia and diabetes. He presented yesterday to the office for regular 6 month follow-up visit. He stated that for the last week or so he has not been feeding well. He was experiencing symptoms of chest discomfort has been more often and more intense for the last 48 hours. The chest discomfort is nonexertional as well as exertional. Beside that he was also more short of jerson ath. No dizziness or lightheadedness and no presyncope or syncope and no symptoms of heart racing or fluttering. In the office he was having ongoing chest discomfort about 3-5/10 in intensity. For that reason the patient was referred to the emergency department for further evaluation and workup. He underwent a workup including an EKG which showed ventricular paced rhythm and also blood work showed mildly abnormal troponin which is chronic to him. He does have chronic kidney disease as well as cardiomyopathy and also his pressure was elevated through the hospital stay. Beside that he stated that he has been experiencing cough productive of sputum. On examination he does have bilateral expiratory wheezing as well as crackles. I am concerned about possible pneumonia. Past Medical History Past Medical History: CVA/TIA, Diabetes Mellitus, GERD/Reflux, Hearing Disorder / Deafness, Hyperlipidemia, Hypertension, Musculoskeletal Disorder, Pneumonia, Renal Disease, Rheumatoid Arthritis (RA), Thyroid Disorder Additional Past Medical History / Comment(s): "Weak and tired today per spouse ". LOW IRON LEVELS AND FATIGUE. Hx CMP w/ BiVICD. Interstitial lung disease/rheumatoid lung, gout, CVA in 2006- no residual effects, hiatal hernia, hx bronchitis, spouse states "had West Nile Virus, possibly Lyme disease", chronic back pain, recent adm. due to CVA, hx. chronic elevated white count, anemia per spouse. History of Any Multi-Drug Resistant Organisms: None Reported Past Surgical History: AICD, Appendectomy, Back Surgery, Heart Catheterization, Joint Replacement, Tonsillectomy Additional Past Surgical History / Comment(s): Biventricular AICD placement/[employer], battery change r/t recall, Back surgery X6, colonoscopy, past hx of pain clinic procedure, cataract sx, Oral sx "to smooth down bones in mouth." 01/18/20 RT TOTAL KNEE; 02/24/20 Repair Rt knee tendon. Past Anesthesia/Blood Transfusion Reactions: No Reported Reaction Additional Past Anesthesia/Blood Transfusion Reaction / Comment(s): Blood transfusion-no reaction, BP was high when came in for his 1st pain procedure- procedure was cancelled- states no problem since. Type of Cardiac Device: AICD Device Placement Date:: 2016 Past Psychological History: No Psychological Hx Reported Additional Psychological History / Comment(s): . Smoking Status: Former smoker Past Alcohol Use History: Occasional Additional Past Alcohol Use History / Comment(s): STARTED SMOKING AT AGE 16, SMOKED 1- 2 1/2 PPD, QUIT IN 1980. Past Drug Use History: None Reported Additional Drug Use History / Comment(s): . - Past Family History Father History Unknown: Yes Mother Family Medical History: Hyperlipidemia, Hypertension, Myocardial Infarction ([place]) Additional Family Medical History / Comment(s): . Medications and Allergies Home Medications Medication Instructions Recorded Confirmed Type Omeprazole [PriLOSEC] 20 mg PO DAILY 11/24/18 06/25/22 History Pravastatin Sodium [Pravachol] 40 mg PO HS 02/27/19 06/25/22 History allopurinoL [Zyloprim] 100 mg PO DAILY 10/09/19 06/26/22 History carvediloL [Coreg] 6.25 mg PO BID 11/30/19 06/25/22 History Calcium Carbonate/Vitamin D3 1 tab PO DAILY 06/05/21 06/25/22 History [Calcium 600 mg-Vit D3 5 mcg (200 unit)] INSULIN ASPART (NovoLOG) [NovoLOG See Protocol SQ TID-W/MEALS PRN 06/05/21 06/25/22 History (formulary)] Insulin Detemir (Levemir) [Levemir] 26 unit SQ HS 06/05/21 06/25/22 History Clopidogrel [Plavix] 75 mg PO DAILY 08/23/21 06/25/22 History Torsemide [Demadex] 10 mg PO Q48H 08/23/21 06/26/22 History traMADol HCl [Ultram] 50 mg PO Q12HR PRN 30 Days #60 tab 05/14/22 06/25/22 Rx Gabapentin 600 mg PO TID PRN 06/25/22 06/25/22 History predniSONE 10 mg PO DAILY 06/25/22 06/25/22 History Allergies Allergy/AdvReac Type Severity Reaction Status Date / Time amlodipine Allergy swelling Verified 06/25/22 19:54 of feet doxycycline Allergy Anaphylaxis Verified 06/25/22 19:54 Iodinated Contrast Media Allergy Anaphylaxis Verified 06/25/22 19:54 [Iodinated Contrast- Oral and IV Dye] iodine Allergy Anaphylaxis Verified 06/25/22 19:54 losartan Allergy dizziness Verified 06/25/22 19:54 metronidazole [From Flagyl] Allergy Rash/Hives Verified 06/25/22 19:54 shrimp Allergy Rash/Hives Verified 06/25/22 19:54 acarbose AdvReac Abdominal Verified 06/25/22 19:54 Pain adhesive tape AdvReac SKIN PULLS Verified 06/25/22 19:54 OFF " amoxicillin trihydrate AdvReac Nausea & Verified 06/25/22 19:54 [From Augmentin] Vomiting potassium clavulanate AdvReac Nausea & Verified 06/25/22 19:54 [From Augmentin] Vomiting Physical Exam Vitals: Vital Signs Temp Pulse Pulse Resp BP BP Pulse Ox 06/26/22 04:00 98.5 F 66 14 177/64 98 06/26/22 01:10 72 184/85 98 06/26/22 01:05 69 175/76 95 06/26/22 01:00 66 178/81 97 06/26/22 00:55 70 191/95 97 06/25/22 23:58 98.1 F 77 12 170/70 92 L 06/25/22 19:30 97.7 F 74 12 189/87 95 06/25/22 18:29 79 18 172/90 97 06/25/22 16:50 97.8 F 63 20 184/65 96 Intake and Output 06/25/22 06/26/22 06/26/22 22:59 06:59 14:59 Intake Total 100.167 Output Total 200 500 Balance -99.833 -500 Intake: Intake, IV Titration 100.167 Amount Heparin Sod,Pork in 0.45% 100.167 NaCl 25,000 unit In 0.45 % NaCl 1 250ml.bag @ 10. 86 UNITS/KG/HR 10 mls/hr IV .Q24H [facility] Rx#: [id number] Output: Urine 200 500 Other: Voiding Method Urinal Urinal Weight 92.079 kg - Constitutional General appearance: no acute distress - Respiratory Respiratory: bilateral: diminished - Cardiovascular Rhythm: regular Heart sounds: normal: S1, S2 Abnormal Heart Sounds: systolic murmur Results 06/25/22 17:35 06/25/22 17:35 Cardiac Enzymes 06/25/22 06/25/22 06/25/22 Range/Units 17:35 17:35 19:29 AST 16 L (17-59) U/L Troponin I 0.245 H* 0.181 H* (0.000-0.034) ng/mL 06/25/22 06/26/22 Range/Units 22:04 01:07 AST (17-59) U/L Troponin I 0.174 H* 0.195 H* (0.000-0.034) ng/mL Coagulation 06/25/22 06/26/22 Range/Units 17:35 03:13 PT 9.6 (9.0-12.0) sec APTT 21.9 L 38.8 H (22.0-30.0) sec Lipids 06/26/22 Range/Units 03:13 Triglycerides 95.70 (0.00-149.00) mg/dL Cholesterol 143.00 (0.00-200.00) mg/dL HDL Cholesterol 52.70 (40.00-60.00) mg/dL Cholesterol/HDL Ratio 2.71 Ratio CBC 06/25/22 Range/Units 17:35 WBC 13.7 H (3.8-10.6) k/uL RBC 4.89 (4.30-5.90) m/uL Hgb 14.3 (13.0-17.5) gm/dL Hct 45.7 (39.0-53.0) % Plt Count 285 (150-450) k/uL Comprehensive Metabolic Panel 06/25/22 Range/Units 17:35 Sodium 134 L (137-145) mmol/L Potassium 4.2 (3.5-5.1) mmol/L Chloride 101 (98-107) mmol/L Carbon Dioxide 25 (22-30) mmol/L BUN 24 H (9-20) mg/dL Creatinine 1.55 H (0.66-1.25) mg/dL Glucose 408 H (74-99) mg/dL Calcium 8.5 (8.4-10.2) mg/dL AST 16 L (17-59) U/L ALT 14 (4-49) U/L Alkaline Phosphatase 81 (38-126) U/L Total Protein 6.5 (6.3-8.2) g/dL Albumin 3.7 (3.5-5.0) g/dL Current Medications Generic Name Dose Route Start Last Admin Trade Name Freq PRN Reason Stop Dose Admin Allopurinol 100 mg 06/26/22 09:00 06/26/22 08:36 Allopurinol 100 Mg Tab PO 100 mg DAILY [facility] Administration Aspirin 81 mg 06/26/22 09:00 06/26/22 08:37 Aspirin 81 Mg PO 81 mg DAILY [facility] Administration Atorvastatin Calcium 80 mg 06/26/22 00:45 06/26/22 02:47 Atorvastatin 80 Mg Tab PO 80 mg HS [facility] Administration Carvedilol 6.25 mg 06/26/22 07:30 06/26/22 06:50 Carvedilol 6.25 Mg Tab PO 6.25 mg BID-W/MEALS [facility] Administration Clopidogrel Bisulfate 75 mg 06/26/22 09:00 06/26/22 08:36 Clopidogrel 75 Mg Tab PO 75 mg DAILY [facility] Administration Dextrose/Water 25 ml 06/26/22 00:39 Dextrose 50% Syringe 50 Ml IVP PER PROTOCOL PRN Hypoglycemia Protocol Dextrose/Water 50 ml 06/26/22 00:39 Dextrose 50% Syringe 50 Ml IVP PER PROTOCOL PRN Hypoglycemia Protocol Insulin Aspart 0 unit 06/26/22 07:30 06/26/22 06:29 Insulin Aspart (Novolog) 100 Unit/Ml Vial SQ Not Given ACHS [facility] Protocol Insulin Aspart 2 unit 06/26/22 12:30 Insulin Aspart (Novolog) 100 Unit/Ml Vial SQ AC-TID [facility] Insulin Detemir 20 unit 06/26/22 21:00 Insulin Detemir (Levemir) 100 Unit/Ml Syr SQ HS [facility] Losartan Potassium 25 mg 06/26/22 09:00 06/26/22 08:37 Losartan 25 Mg Tab PO 25 mg DAILY [facility] Administration Morphine Sulfate 2 mg 06/26/22 01:24 06/26/22 06:54 Morphine Sulfate 2 Mg/Ml Syringe IVP 2 mg Q4HR PRN Administration Pain/Discomfort Nitroglycerin 0.4 mg 06/25/22 18:58 06/26/22 01:09 Nitroglycerin Sl Tabs 0.4 Mg Tab SUBLINGUAL 0.4 mg Q5M PRN Administration Chest Pain Nitroglycerin 1 inch 06/26/22 00:00 06/26/22 06:50 Nitroglycerin Oint 1 Inch/Gm Packet TOPICAL 1 inch Q6HR [facility] Administration Spironolactone 25 mg 06/26/22 09:00 06/26/22 08:37 Spironolactone 25 Mg Tab PO 25 mg DAILY [facility] Administration Intake and Output 06/25/22 06/26/22 06/26/22 22:59 06:59 14:59 Intake Total 100.167 Output Total 200 500 Balance -99.833 -500 Intake: Intake, IV Titration 100.167 Amount Heparin Sod,Pork in 0.45% 100.167 NaCl 25,000 unit In 0.45 % NaCl 1 250ml.bag @ 10. 86 UNITS/KG/HR 10 mls/hr IV .Q24H [facility] Rx#: [id number] Output: Urine 200 500 Other: Voiding Method Urinal Urinal Weight 92.079 kg 06/25/22 17:35 06/25/22 17:35 Assessment and Plan Assessment: Assessment #1 hypertension emergency #2 chest discomfort likely secondary to the above #3 cough and sputum production rule out pneumonia #4 evidence of myocardial injury which is a chronic #5 history of ventricular tachycardia status post AICD #2 multiple comorbid conditions Plan #1 continue the current medical regimen #2 add Aldactone to the current medical regimen #3 add YONATAN or ARB to the current medical regimen as well #4 possibly pneumonia to be managed by the internal medicine team #5 obtaining an echocardiogram was Doppler #6 consider coronary angiogram if the patient continues to be symptomatic with normal blood pressure
[2022-06-26] MEDS ORDERED: methylPREDNISolone SOD SUCCI 125 MG/2 ML VIAL IV SCH (10:45)
--- NOTE | 2022-06-26 11:27 | CA ---
Transthoracic Echo Report Name: Mark Diaz Age: 82 Gender: M : 1940 Exam Date: 06/26/2022 08:50 Exam Location: [place] [facility] Ht (in): 72 Wt (lb): 203 Ordering Physician: Ritika Ha Attending/Referring Phys: Child Support Case Officer Shannan Stevens RDCS Procedure CPT: Indications: chest pain, hypertension Cardiac Hx: AICD Technical Quality: Fair Contrast 1: Total Dose (mL): Contrast 2: Total Dose (mL): MEASUREMENTS (Male / Female) Normal Values 2D ECHO LV Diastolic Diameter PLAX 4.3 cm 4.2 - 5.9 / 3.9 - 5.3 cm LV Systolic Diameter PLAX 3.3 cm IVS Diastolic Thickness 1.7 cm 0.6 - 1.0 / 0.6 - 0.9 cm LVPW Diastolic Thickness 1.3 cm 0.6 - 1.0 / 0.6 - 0.9 cm LV Relative Wall Thickness 0.7 RV Internal Dim ED PLAX 3.2 cm LA Systolic Diameter LX 4.1 cm 3.0 - 4.0 / 2.7 - 3.8 cm LV Diastolic Volume MOD 4C 104.8 cm??? LV Systolic Volume MOD 4C 61.5 cm??? LV Ejection Fraction MOD 4C 41.3 % LV Diastolic Length 4C 8.3 cm LV Systolic Length 4C 7.0 cm LV Diastolic Volume MOD 2C 108.1 cm??? LV Systolic Volume MOD 2C 48.4 cm??? LV Ejection Fraction MOD 2C 55.3 % LV Diastolic Length 2C 8.2 cm LV Systolic Length 2C 7.2 cm LA Volume 88.9 cm??? 18 - 58 / 22 - 52 cm??? M-MODE Aortic Root Diameter MM 3.6 cm MV E Point Septal Separation 0.8 cm AV Cusp Separation MM 2.3 cm DOPPLER AV Peak Velocity 120.3 cm/s AV Peak Gradient 5.8 mmHg AI Peak Velocity 377.9 cm/s AI Peak Gradient 57.1 mmHg AI Pressure Half Time 420.0 ms MV Area PHT 4.3 cm??? MV Deceleration Time 161.6 ms TR Peak Velocity 311.9 cm/s TR Peak Gradient 38.9 mmHg Right Ventricular Systolic Press 41.0 mmHg FINDINGS Left Ventricle Left ventricular ejection fraction is estimated at 40-45 %. Left ventricular cavity size normal. Moderate to Severe concentric left ventricular hypertrophy. Moderately increased septal wall thickness. Right Ventricle Normal right ventricular size and function. Mild pulmonary hypertension. Right Atrium Normal right atrial size. Left Atrium Mildly increased left atrial diameter. Severely increased left atrial volume. Mildly increased left atrial area. No evidence for an atrial septal defect. Mitral Valve Mild thickening/calcification of the anterior mitral valve leaflet. Mild thickening/calcification of the posterior mitral valve leaflet. Moderate mitral annular calcification. Mild mitral regurgitation. Aortic Valve Thickened aortic valve without stenosis. [id number] aortic regurgitation. Tricuspid Valve Mild tricuspid regurgitation. Pulmonic Valve Trace to mild pulmonic regurgitation. Pericardium Normal pericardium. No pericardial effusion. Aorta Normal size aortic root and proximal ascending aorta. CONCLUSIONS Left ventricular hypertrophy with preserved systolic function Mitral calcification with thickening of the mitral leaflets Mild mitral regurgitation 2+ aortic regurgitation Previewed by: Dr. Yossi Bales MD (Electronically Signed) Final Date: 26 June 2022 11:26
[2022-06-26 11:34] LABS: Glucose,Whole Blood 161 mg/dL (70-110)
[2022-06-26] MEDS ORDERED: IPRATROPIUM-ALBUTEROL 3 ML NEB INHALATION SCH (12:00)
[2022-06-26 12:23] LABS: Calcium 8.1 mg/dL (8.4-10.2)
[2022-06-26] MEDS ORDERED: IPRATROPIUM-ALBUTEROL 3 ML NEB INHALATION PRN (13:12)
--- NOTE | 2022-06-26 13:14 | P.CNPUL ---
History of Present Illness Consult date: 06/26/22 Requesting physician: Tomasz Trammell Reason for consult: dyspnea, hypoxemia, pleural effusion, pulmonary fibrosis, abnormal CXR/CT Chief complaint: Shortness of breath. History of present illness: Pulmonary consultation dated 06/26/2022. 82-year-old male who presented to the emergency department on June 25, complaining of chest pain and shortness of breath. The patient was evaluated in the emergency room, and admitted with a diagnosis of CHF. The patient apparently saw his auto dealership porter the day of admission, and the auto dealership porter said him to the emergency room to be evaluated. There is no fever or chills. The patient was not coughing or bringing up any phlegm. Today I saw him in the room, 366. He was on 2 L of oxygen. He was not receiving any IV fluids. He was sitting at the bedside, eating his lunch. His and some other family members when the room. He was not having any respiratory distress but he states that he was not feeling much better today when he came in the day prior. The patient's chest x-ray was consistent with CHF. Laboratory data included a white count of 13.7, with a normal hemoglobin, hematocrit, and platelet count. Sodium 137, potassium 4, chlorides 107, CO2 27, BUN 24, and creatinine 1.1. Calcium 8.1. Troponins were 0.174 and 0.195. EKG showed a paced rhythm. The patient apparently sees my partner, rheumatoid lung disease. He uses a nebulizer machine or a rescue inhaler, very infrequently, according to his . Review of Systems REVIEW OF SYSTEMS: CONSTITUTIONAL: [Negative.] NEUROLOGIC: [ Negative.] HEENT: [ Negative.] CARDIAC: Chest pain. PULMONARY: Shortness of breath. GI: [Negative.] : [Negative.] RHEUMATOLOGIC: [ Negative.] IMMUNOLOGIC: [ Negative.] ENDOCRINE: [Negative. ] DERMATOLOGIC: [Negative.] Past Medical History Past Medical History: CVA/TIA, Diabetes Mellitus, GERD/Reflux, Hearing Disorder / Deafness, Hyperlipidemia, Hypertension, Musculoskeletal Disorder, Pneumonia, Renal Disease, Rheumatoid Arthritis (RA), Thyroid Disorder Additional Past Medical History / Comment(s): "Weak and tired today per spouse ". LOW IRON LEVELS AND FATIGUE. Hx CMP w/ BiVICD. Interstitial lung disease/rheumatoid lung, gout, CVA in 2005- no residual effects, hiatal hernia, hx bronchitis, spouse states "had West Nile Virus, possibly Lyme disease", chronic back pain, recent adm. due to CVA, hx. chronic elevated white count, anemia per spouse. History of Any Multi-Drug Resistant Organisms: None Reported Past Surgical History: AICD, Appendectomy, Back Surgery, Heart Catheterization, Joint Replacement, Tonsillectomy Additional Past Surgical History / Comment(s): Biventricular AICD placement/[employer], battery change r/t recall, Back surgery X6, colonoscopy, past hx of pain clinic procedure, cataract sx, Oral sx "to smooth down bones in mouth." 01/18/20 RT TOTAL KNEE; 02/24/20 Repair Rt knee tendon. Past Anesthesia/Blood Transfusion Reactions: No Reported Reaction Additional Past Anesthesia/Blood Transfusion Reaction / Comment(s): Blood transfusion-no reaction, BP was high when came in for his 1st pain procedure- procedure was cancelled- states no problem since. Type of Cardiac Device: AICD Device Placement Date:: 2016 Past Psychological History: No Psychological Hx Reported Additional Psychological History / Comment(s): . Smoking Status: Former smoker Past Alcohol Use History: Occasional Additional Past Alcohol Use History / Comment(s): STARTED SMOKING AT AGE 16, SMOKED 1- 2 1/2 PPD, QUIT IN 1980. Past Drug Use History: None Reported Additional Drug Use History / Comment(s): . - Past Family History Father History Unknown: Yes Mother Family Medical History: Hyperlipidemia, Hypertension, Myocardial Infarction ([place]) Additional Family Medical History / Comment(s): . Medications and Allergies Home Medications Medication Instructions Recorded Confirmed Type Omeprazole [PriLOSEC] 20 mg PO DAILY 11/24/18 06/25/22 History Pravastatin Sodium [Pravachol] 40 mg PO HS 02/27/19 06/25/22 History allopurinoL [Zyloprim] 100 mg PO DAILY 10/09/19 06/26/22 History carvediloL [Coreg] 6.25 mg PO BID 11/30/19 06/25/22 History Calcium Carbonate/Vitamin D3 1 tab PO DAILY 06/05/21 06/25/22 History [Calcium 600 mg-Vit D3 5 mcg (200 unit)] INSULIN ASPART (NovoLOG) [NovoLOG See Protocol SQ TID-W/MEALS PRN 06/05/21 06/25/22 History (formulary)] Insulin Detemir (Levemir) [Levemir] 26 unit SQ HS 06/05/21 06/25/22 History Clopidogrel [Plavix] 75 mg PO DAILY 08/23/21 06/25/22 History Torsemide [Demadex] 10 mg PO Q48H 08/23/21 06/26/22 History traMADol HCl [Ultram] 50 mg PO Q12HR PRN 30 Days #60 tab 05/14/22 06/25/22 Rx Gabapentin 600 mg PO TID PRN 06/25/22 06/25/22 History predniSONE 10 mg PO DAILY 06/25/22 06/25/22 History Allergies Allergy/AdvReac Type Severity Reaction Status Date / Time amlodipine Allergy swelling Verified 06/25/22 19:54 of feet doxycycline Allergy Anaphylaxis Verified 06/25/22 19:54 Iodinated Contrast Media Allergy Anaphylaxis Verified 06/25/22 19:54 [Iodinated Contrast- Oral and IV Dye] iodine Allergy Anaphylaxis Verified 06/25/22 19:54 losartan Allergy dizziness Verified 06/25/22 19:54 metronidazole [From Flagyl] Allergy Rash/Hives Verified 06/25/22 19:54 shrimp Allergy Rash/Hives Verified 06/25/22 19:54 acarbose AdvReac Abdominal Verified 06/25/22 19:54 Pain adhesive tape AdvReac SKIN PULLS Verified 06/25/22 19:54 OFF " amoxicillin trihydrate AdvReac Nausea & Verified 06/25/22 19:54 [From Augmentin] Vomiting potassium clavulanate AdvReac Nausea & Verified 06/25/22 19:54 [From Augmentin] Vomiting Physical Exam Osteopathic Statement: *. No significant issues noted on an osteopathic structural exam other than those noted in the History and Physical/Consult. Vitals: Vital Signs Temp Pulse Pulse Resp BP BP Pulse Ox 06/26/22 12:03 68 06/26/22 11:53 68 06/26/22 08:00 97.9 F 69 20 180/71 90 L 06/26/22 04:00 98.5 F 66 14 177/64 98 06/26/22 01:10 72 184/85 98 06/26/22 01:05 69 175/76 95 06/26/22 01:00 66 178/81 97 06/26/22 00:55 70 191/95 97 06/25/22 23:58 98.1 F 77 12 170/70 92 L 06/25/22 19:30 97.7 F 74 12 189/87 95 06/25/22 18:29 79 18 172/90 97 06/25/22 16:50 97.8 F 63 20 184/65 96 Intake and Output 06/25/22 06/26/22 06/26/22 22:59 06:59 14:59 Intake Total 100.167 Output Total 200 500 Balance -99.833 -500 Intake: Intake, IV Titration 100.167 Amount Heparin Sod,Pork in 0.45% 100.167 NaCl 25,000 unit In 0.45 % NaCl 1 250ml.bag @ 10. 86 UNITS/KG/HR 10 mls/hr IV .Q24H [facility] Rx#: [id number] Output: Urine 200 500 Other: Voiding Method Urinal Urinal Urinal Weight 92.079 kg No acute distress, oriented 3. Currently on 2 L, with saturations in the mid 90s. HEENT examination is grossly unremarkable. Neck supple. Full range of motion. No adenopathy thyromegaly or neck vein distention. Cardiovascular examination reveals regular rhythm rate. S1-S2 normal. No S3 or S4. No discernible murmur noted. Heart rate 68 bpm. Lungs reveal scattered rhonchi, and bibasilar crackles. Breath sounds equal bilaterally. No wheezes. Abdomen soft bowel sounds are heard. No masses or tenderness. Extremities are intact. No cyanosis clubbing or edema. Skin is without rash or lesion. Neurologic examination is brief but nonfocal. Results - Laboratory Findings CBC and BMP: 06/25/22 17:35 06/26/22 11:15 PT/INR, D-dimer PT 9.6 sec (9.0-12.0) 06/25/22 17:35 INR 0.9 (<1.2) 06/25/22 17:35 Abnormal lab findings: Abnormal Labs 06/25/22 06/25/22 06/25/22 17:35 17:35 17:35 WBC 13.7 H Neutrophils # 7.9 H APTT 21.9 L Sodium 134 L BUN 24 H Creatinine 1.55 H Glucose 408 H POC Glucose (mg/dL) Hemoglobin A1c Calcium AST 16 L Troponin I 06/25/22 06/25/22 06/25/22 17:35 18:57 19:29 WBC Neutrophils # APTT Sodium BUN Creatinine Glucose POC Glucose (mg/dL) 372 H Hemoglobin A1c Calcium AST Troponin I 0.245 H* 0.181 H* 06/25/22 06/25/22 06/26/22 20:14 22:04 00:00 WBC Neutrophils # APTT Sodium BUN Creatinine Glucose POC Glucose (mg/dL) 288 H Hemoglobin A1c 8.6 H Calcium AST Troponin I 0.174 H* 06/26/22 06/26/22 06/26/22 01:07 03:13 11:15 WBC Neutrophils # APTT 38.8 H Sodium BUN 24 H Creatinine 1.31 H Glucose 162 H POC Glucose (mg/dL) Hemoglobin A1c Calcium 8.1 L AST Troponin I 0.195 H* 06/26/22 11:32 WBC Neutrophils # APTT Sodium BUN Creatinine Glucose POC Glucose (mg/dL) 161 H Hemoglobin A1c Calcium AST Troponin I - Diagnostic Findings Chest x-ray: image reviewed Assessment and Plan Assessment: Shortness of breath with hypoxemic respiratory failure, secondary to CHF. Rule out non-ST segment elevation myocardial infarction. History of rheumatoid arthritis, with mild interstitial lung disease secondary to RA. Biventricular AICD placement. History of CVA. History of diabetes mellitus. History of GERD. Hyperlipidemia. Hypertension. Multiple other medical problems and comorbidities. Plan: Plan dated 06/26/2022. The patient currently is on 2 L. Labs, x-rays, and medications are reviewed. The patient appears to have mild interstitial lung disease secondary to rheumatoid arthritis, for which she sees my partner. He uses a rescue inhaler, and a nebulizer machine at home, according to his , very infrequently. The patient will get DuoNeb, 4 times a day and when necessary. I will discontinue the IV Solu-Medrol. Not needed in this patient at this time. We do give him a Medrol Dosepak to be used getting tomorrow. He should follow with my partner in the office. Additional recommendations and suggestions are forthcoming. Time with Patient: Greater than 30
--- NOTE | 2022-06-26 16:01 | P.PN ---
Subjective Progress Note Date: 06/26/22 (huang charting seen at 11am) The patient is an 82-year-old male with a PMH of carotid stenosis status post revascularization, AICD placement, chronic kidney disease, type II DM, hypertension, and hyperlipidemia who presents to the emergency room with complaints of chest discomfort. In the ED he underwent an extensive evaluation. Chest x-ray in the emergency room revealed mild pulmonary edema with EKG showing V paced rhythm at 62 bpm. Laboratory evaluation was remarkable for troponin of 0.245, BUN 24, creatinine 1.55, and WBC count 13.7. He was started on a heparin infusion, aspirin, and statin. Cardiology was consulted. Patient seen and examined at bedside. is present. They report that he has been having worsening shortness of breath over the last 1-2 weeks. 2 weeks ago he went and saw Dr. James was placed on a steroid taper. He had some improvement with the initial high-dose steroids as he tapered this to his breathing again got worse. He has had a dry nonproductive cough since that time. He does feel as though his chest pain may be related to his cough. He re ports that he has a history of interstitial lung disease related to arthritis. He states that bronchodilators have not helped relieve his shortness of breath much. He states his chest pain is better at this time. General: nontoxic, no distress, appears at stated age Derm: warm, dry Head: atraumatic, normocephalic, symmetric Eyes: EOMI, no lid lag, anicteric sclera Mouth: no lip lesion, mucus membranes moist Cardiovascular: S1S2 reg, no murmur, positive posterior tibial pulse bilateral, Lungs: expiratory wheeze bilateral no rhonchi, no rales , no accessory muscle use Abdominal: soft, nontender to palpation, no guarding, no appreciable organomegaly Ext: no gross muscle atrophy, no edema, no contractures Neuro: CN II-XI grossly intact, no focal neuro deficits Psych: Alert, oriented, appropriate affect Assessment/plan: Non-ST segment elevated myocardial infarction Cardiomyopathy, EF now 40-45%, prior 55-60% - cardio recs - heparin gtt - plavix, coreg, statin Acute exacerbation of interstitial lung disease Rheumatoid Arthritis - start solumedrol - consult pulm - bronchodilators CKD III - renal fct at baseline HTN, controlled HLD - follow BP - conitnue current medications DM II - Levemir, fixed dose short acting, and sliding scale insulin - Follow blood sugars Objective - Vital Signs Vital signs: Vital Signs Temp 98.2 F 06/26/22 14:56 Pulse 72 06/26/22 14:56 Resp 22 06/26/22 14:56 BP 151/71 06/26/22 14:56 Pulse Ox 95 06/26/22 14:56 FiO2 Intake & Output 06/25/22 06/26/22 06/26/22 18:59 06:59 18:59 Intake Total 100.167 250 Output Total 200 500 Balance -99.833 -250 Weight 92.079 kg 92.079 kg Intake: Intake, IV Titration 100.167 Amount Heparin Sod,Pork in 0.45% 100.167 NaCl 25,000 unit In 0.45 % NaCl 1 250ml.bag @ 10. 86 UNITS/KG/HR 10 mls/hr IV .Q24H [facility] Rx#: [id number] Oral 250 Output: Urine 200 500 Other: Voiding Method Urinal Urinal - Labs CBC & Chem 7: 06/25/22 17:35 06/26/22 11:15 Labs: Abnormal Lab Results - Last 24 Hours (Table) 06/25/22 06/25/22 06/25/22 Range/Units 17:35 17:35 17:35 WBC 13.7 H (3.8-10.6) k/uL Neutrophils # 7.9 H (1.3-7.7) k/uL APTT 21.9 L (22.0-30.0) sec Sodium 134 L (137-145) mmol/L BUN 24 H (9-20) mg/dL Creatinine 1.55 H (0.66-1.25) mg/dL Glucose 408 H (74-99) mg/dL POC Glucose (mg/dL) (70-110) mg/dL Hemoglobin A1c (0.0-6.0) % Calcium (8.4-10.2) mg/dL AST 16 L (17-59) U/L Troponin I (0.000-0.034) ng/mL 06/25/22 06/25/22 06/25/22 Range/Units 17:35 18:57 19:29 WBC (3.8-10.6) k/uL Neutrophils # (1.3-7.7) k/uL APTT (22.0-30.0) sec Sodium (137-145) mmol/L BUN (9-20) mg/dL Creatinine (0.66-1.25) mg/dL Glucose (74-99) mg/dL POC Glucose (mg/dL) 372 H (70-110) mg/dL Hemoglobin A1c (0.0-6.0) % Calcium (8.4-10.2) mg/dL AST (17-59) U/L Troponin I 0.245 H* 0.181 H* (0.000-0.034) ng/mL 06/25/22 06/25/22 06/26/22 Range/Units 20:14 22:04 00:00 WBC (3.8-10.6) k/uL Neutrophils # (1.3-7.7) k/uL APTT (22.0-30.0) sec Sodium (137-145) mmol/L BUN (9-20) mg/dL Creatinine (0.66-1.25) mg/dL Glucose (74-99) mg/dL POC Glucose (mg/dL) 288 H (70-110) mg/dL Hemoglobin A1c 8.6 H (0.0-6.0) % Calcium (8.4-10.2) mg/dL AST (17-59) U/L Troponin I 0.174 H* (0.000-0.034) ng/mL 06/26/22 06/26/22 06/26/22 Range/Units 01:07 03:13 11:15 WBC (3.8-10.6) k/uL Neutrophils # (1.3-7.7) k/uL APTT 38.8 H (22.0-30.0) sec Sodium (137-145) mmol/L BUN 24 H (9-20) mg/dL Creatinine 1.31 H (0.66-1.25) mg/dL Glucose 162 H (74-99) mg/dL POC Glucose (mg/dL) (70-110) mg/dL Hemoglobin A1c (0.0-6.0) % Calcium 8.1 L (8.4-10.2) mg/dL AST (17-59) U/L Troponin I 0.195 H* (0.000-0.034) ng/mL 06/26/22 Range/Units 11:32 WBC (3.8-10.6) k/uL Neutrophils # (1.3-7.7) k/uL APTT (22.0-30.0) sec Sodium (137-145) mmol/L BUN (9-20) mg/dL Creatinine (0.66-1.25) mg/dL Glucose (74-99) mg/dL POC Glucose (mg/dL) 161 H (70-110) mg/dL Hemoglobin A1c (0.0-6.0) % Calcium (8.4-10.2) mg/dL AST (17-59) U/L Troponin I (0.000-0.034) ng/mL
[2022-06-26] MEDS: IPRATROPIUM-ALBUTEROL 3 ML NEB INHALATION SCH ×2 (16:03→20:16)
[2022-06-26 16:24] LABS: Glucose,Whole Blood 207 mg/dL (70-110)
[2022-06-26 20:23] LABS: Glucose,Whole Blood 233 mg/dL (70-110)
[2022-06-26] MEDS ORDERED: INSULIN DETEMIR (LEVEMIR) 100 UNIT/ML SYR SQ SCH (21:00)
[2022-06-26] MEDS: INSULIN DETEMIR (LEVEMIR) 100 UNIT/ML SYR SQ SCH (22:19)
[2022-06-27] MEDS: INSULIN ASPART (NovoLOG) 100 UNIT/ML VIAL SQ SCH ×7 (06:12→20:26)
[2022-06-27 06:15] LABS: Glucose,Whole Blood 111 mg/dL (70-110)
[2022-06-27] MEDS: carvediloL 6.25 MG TAB PO SCH (06:40)
[2022-06-27] MEDS: NITROGLYCERIN OINT 1 INCH/GM PACKET TOPICAL SCH ×3 (06:40→17:08)
--- NOTE | 2022-06-27 08:10 | CDI ---
Documentation Clarification Form Date: 06/27/2022 07:55:30 AM, 07/02/2022 07:41 AM From: Caren Alvarez CCS, CCDS Admit Date: 06/25/2022 06:58:00 PM Patient Name: Mark Diaz Visit Number: [id number] Discharge Date: ATTENTION: The Clinical Documentation Specialists (CDI) and [facility] Coding Staff appreciate your assistance in clarifying documentation. Please respond to the clarification below the line at the bottom and electronically sign. The CDI & [facility] Coding staff will review the response and follow-up if needed. Please note: Queries are made part of the Legal Health Record. If you have any questions, please contact the author of this message via ITS. Dr. Becca Powers: Conflicting documentation has been found in the medical record regarding Myocardial Infarction. As attending physician, please provide clarification. Per the 06/25 History & Physical: Non-STEMI is documented. Per the 06/26 Cardiology Consult: Evidence of Myocardial Injury which is chronic. Per the 06/26 Attending Physician Progress Note: Non-STEMI History/Risk Factors per the 06/25 H/P: Carotid Stenosis status post revascularization, AICD, CKD, DM II, Hypertension, Hyperlipidemia, GERD, Rheumatoid Arthritis, Hypothyroid, Pneumonia and Interstitial Lung Disease/Rheumatoid Lung, CVA w/no residual effects, Former smoker. Clinical Indicators: Presented to the ED on 06/25 with Chest Pain with history of previous stent placement, also some SOB. Admit with Acute Non-STEMI, Pulmonary edema and Hyperglycemia. 06/25 VS: T 97.8, P 63, R 20, BP 184/65, PO 96 RA 06/25 LAB: WBC 13.7, Neutrophils 7.9; APTT 21.9; Na 134, BUN 24, Creatinine 1.55, Glucose 408, AST 16, Troponin 0.181, 0.174. *06/26: 0.195). 06/25 CXR: Some mild pulmonary edema and consistent with heart failure that is increased. 06/26 ECHO: LVH with preserved systolic function. Mitral calcification with thickening of the mitral leaflets, Mild MR, 2+ AR. Treatment 06/25: Telemetry, Cardiology Consult, Cardiac rehab post AMI, O2 2Lnc, po Aspirin 324 mg x1, Nitropaste x1, IV Heparin q24H, Insulin sq, Nitro sl q5M/prn. Please clarify which diagnosis is most appropriate: [ ] Non-STEMI, present on admission [x] Non-STEMI, ruled out [ ] Old Myocardial Injury, Chronic [ ] Other, please specify: [ ] Unable to determine (Template Last Revised: January 2021) MTDD
--- NOTE | 2022-06-27 08:21 | CDI ---
Documentation Clarification Form Date: 06/27/2022 08:14:00 AM From: Caren Alvarez CCS, CCDS Admit Date: 06/25/2022 06:58:00 PM Patient Name: Mark Diaz Visit Number: [id number] Discharge Date: ATTENTION: The Clinical Documentation Specialists (CDI) and [facility] Coding Staff appreciate your assistance in clarifying documentation. Please respond to the clarification below the line at the bottom and electronically sign. The CDI & [facility] Coding staff will review the response and follow-up if needed. Please note: Queries are made part of the Legal Health Record. If you have any questions, please contact the author of this message via ITS. Dr. Siddharth Simons: The following is documented in the 06/26 Pulmonary Consult: SOB with Hypoxemic Respiratory Failure, secondary to CHF. Additional information regarding the Type & Acuity of CHF is requested. 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 Clinical Indicators: Presented to the ED on 06/25 with Chest Pain with history of previous stent placement, also some SOB. Admit with Acute Non-STEMI, Pulmonary edema and Hyperglycemia. 06/25 VS: T 97.8, P 63, R 20, BP 184/65, PO 96 RA 06/25 LAB: WBC 13.7, Neutrophils 7.9; APTT 21.9; Na 134, BUN 24, Creatinine 1.55, Glucose 408, AST 16, Troponin 0.181, 0.174. *06/26: 0.195). 06/26 BNP: 11,500. 06/25 CXR: Some mild pulmonary edema and consistent with heart failure that is increased. 06/26 ECHO: LVH with preserved systolic function. Mitral calcification with thickening of the mitral leaflets, Mild MR, 2+ AR. Treatment 06/25: Telemetry, Cardiology Consult, Cardiac rehab post AMI, O2 2Lnc, po Aspirin 324 mg x1, Nitropaste x1, IV Heparin q24H, Insulin sq, Nitro sl q5M/prn. Home meds: Zyloprim, Demadex, Coreg, Pravachol, Insulin sq, Gabapentin, Prednisone, Ultram, Prilosec, Plavix, Calcium. In your professional opinion, can you please clarify the Type & Acuity of CHF if known? [ X ] Acute Diastolic Heart Failure [ ] Acute Systolic & Diastolic Heart Failure [ ] Heart Failure is ruled out [ ] Other, please specify: [ ] Unable to determine (Template Last Revised: December 2020) MTDD
--- NOTE | 2022-06-27 08:29 | CDI ---
Documentation Clarification Form Date: 06/27/2022 08:23:12 AM From: Caren Alvarez CCS, CCDS Admit Date: 06/25/2022 06:58:00 PM Patient Name: Mark Diaz Visit Number: [id number] Discharge Date: ATTENTION: The Clinical Documentation Specialists (CDI) and [facility] Coding Staff appreciate your assistance in clarifying documentation. Please respond to the clarification below the line at the bottom and electronically sign. The CDI & [facility] Coding staff will review the response and follow-up if needed. Please note: Queries are made part of the Legal Health Record. If you have any questions, please contact the author of this message via ITS. Dr. Siddharth Simons: Your patient has [insert documentation of symptoms or findings, with date, location]. Based on this information and the findings below, is there an additional diagnosis that is clinically appropriate for this patient? 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 Clinical Indicators: Presented to the ED on 06/25 with Chest Pain with history of previous stent placement, also some SOB. Admit with Acute Non-STEMI, Pulmonary edema and Hyperglycemia. 06/25 VS: T 97.8, P 63, R 20, BP 184/65, PO 96 RA 06/26 VS: T 98.5, P 66, R 14, BP 177/64, PO 98 2Lnc, 90 2Lnc 06/27 VS: T 98.4, P 68, 71, R 19, BP 198/89, PO 94 3Lnc 06/25 LAB: WBC 13.7, Neutrophils 7.9; APTT 21.9; Na 134, BUN 24, Creatinine 1.55, Glucose 408, AST 16, Troponin 0.181, 0.174. *06/26: 0.195). 06/26 BNP: 11,500. 06/25 CXR: Some mild pulmonary edema and consistent with heart failure that is increased. 06/26 ECHO: LVH with preserved systolic function. Mitral calcification with thickening of the mitral leaflets, Mild MR, 2+ AR. Treatment 06/25: Telemetry, Cardiology Consult, Cardiac rehab post AMI, po Aspirin 324 mg x1, Nitropaste x1, IV Heparin q24H, Insulin sq, Nitro sl q5M/prn. 06/26: O2 2Lnc - 3Lnc Home meds: Zyloprim, Demadex, Coreg, Pravachol, Insulin sq, Gabapentin, Prednisone, Ultram, Prilosec, Plavix, Calcium. Is there an additional diagnosis that is clinically appropriate for this patient? [ ] Acute Hypoxic Respiratory Failure [ ] Acute Respiratory Insufficiency [ ] Respiratory Failure is ruled out [ ] Other Diagnosis, please specify: [ ] Unable to determine (Template Last Revised: January 2021) MTDD
[2022-06-27] MEDS: methylPREDNISolone 4 MG TAB TAPER PO SCH (08:38)
[2022-06-27] MEDS: ASPIRIN 81 MG PO SCH (08:38)
[2022-06-27] MEDS: CLOPIDOGREL 75 MG TAB PO SCH (08:38)
[2022-06-27] MEDS: allopurinoL 100 MG TAB PO SCH (08:38)
[2022-06-27] MEDS: LOSARTAN 25 MG TAB PO SCH (08:38)
[2022-06-27] MEDS: SPIRONOLACTONE 25 MG TAB PO SCH (08:38)
[2022-06-27] MEDS: MORPHINE SULFATE 2 MG/ML SYRINGE IVP PRN ×2 (08:44→17:05)
[2022-06-27] MEDS: LOSARTAN 50 MG TAB PO SCH (08:56)
[2022-06-27] MEDS: IPRATROPIUM-ALBUTEROL 3 ML NEB INHALATION SCH ×4 (08:58→19:50)
[2022-06-27] MEDS ORDERED: TORSEMIDE 20 MG TAB PO SCH (09:00)
[2022-06-27] MEDS ORDERED: guaiFENesin-DM 100-10MG/5ML 10 ML CUP PO PRN (09:11)
--- NOTE | 2022-06-27 09:13 | P.PN ---
Subjective Progress Note Date: 06/27/22 Patient still does not feel like he is improving. Still quite short of breath on exertion. Has significant cough. Gen: awake, alert HEENT: normocephalic, atraumatic, good hearing acuity, moist mucous membranes Resp: good air exchange, breathing comfortably with no accessory muscle use, left-sided crackles CVS: good distal perfusion x 4, regular rate and rhythm, no murmurs GI: soft, NTTP, ND : no SPT, no CVAT, montes catheter not present MSK: no pitting edema, no clubbing Neuro: non-focal, moving all extremities Psych: cooperative, euthymic mood Assessment/plan: Non-ST segment elevated myocardial infarction Cardiomyopathy, EF now 40-45%, prior 55-60% - cardio recs - heparin gtt - plavix, coreg, statin Acute exacerbation of interstitial lung disease Rheumatoid Arthritis - start solumedrol - consult pulm - bronchodilators - repeat CXR today - cough syrup PRN CKD III - renal fct at baseline HTN, controlled HLD - follow BP - conitnue current medications DM II - Levemir, fixed dose short acting, and sliding scale insulin - Follow blood sugars Objective - Vital Signs Vital signs: Vital Signs Temp 98.6 F 06/27/22 08:35 Pulse 72 06/27/22 08:35 Resp 21 06/27/22 08:35 BP 191/81 06/27/22 08:35 Pulse Ox 92 L 06/27/22 08:35 FiO2 21 06/26/22 20:17 Intake & Output 06/26/22 06/27/22 06/27/22 18:59 06:59 18:59 Intake Total 250 240 Output Total 500 350 Balance -250 -110 Intake: Oral 250 240 Output: Urine 500 350 Other: Voiding Method Urinal Urinal - Labs CBC & Chem 7: 06/25/22 17:35 06/26/22 11:15 Labs: Abnormal Lab Results - Last 24 Hours (Table) 06/26/22 06/26/22 06/26/22 Range/Units 11:15 11:32 16:22 BUN 24 H (9-20) mg/dL Creatinine 1.31 H (0.66-1.25) mg/dL Glucose 162 H (74-99) mg/dL POC Glucose (mg/dL) 161 H 207 H (70-110) mg/dL Calcium 8.1 L (8.4-10.2) mg/dL 06/26/22 06/27/22 Range/Units 20:21 06:11 BUN (9-20) mg/dL Creatinine (0.66-1.25) mg/dL Glucose (74-99) mg/dL POC Glucose (mg/dL) 233 H 111 H (70-110) mg/dL Calcium (8.4-10.2) mg/dL
[2022-06-27 09:35] LABS: Calcium 8.4 mg/dL (8.4-10.2); Potassium 4.8 mmol/L (3.5-5.1)
--- NOTE | 2022-06-27 10:51 | XR ---
EXAMINATION TYPE: XR chest 1V DATE OF EXAM: 06/27/2022 COMPARISON: Chest x-ray 12/14/2021 HISTORY: Cough and dyspnea TECHNIQUE: Single frontal view of the chest is obtained. FINDINGS: Interstitium is increased, central vascularity is prominent. Perihilar vascular indistinct ness is noted. Suspect some groundglass opacity noted. No evident pneumothorax or pleural effusion. T he cardiac silhouette size is enlarged. Generator is present in left pectoral region, leads are stab le within the heart. The osseous structures are intact. IMPRESSION: correlate for congestive heart failure, pneumonia not excluded
--- NOTE | 2022-06-27 11:25 | P.PN ---
Subjective Progress Note Date: 06/27/22 Principal diagnosis: Dyspnea. Pulmonary consultation dated 06/26/2022. 82-year-old male who presented to the emergency department on June 25, complaining of chest pain and shortness of breath. The patient was evaluated in the emergency room, and admitted with a diagnosis of CHF. The patient apparently saw his accounting professor the day of admission, and the accounting professor said him to the emergency room to be evaluated. There is no fever or chills. The patient was not coughing or bringing up any phlegm. Today I saw him in the room, 366. He was on 2 L of oxygen. He was not receiving any IV fluids. He was sitting at the bedside, eating his lunch. His and some other family members when the room. He was not having any respiratory distress but he states that he was not feeling much better today when he came in the day prior. The patient's chest x-ray was consistent with CHF. Laboratory data included a white count of 13.7, with a normal hemoglobin, hematocrit, and platelet count. Sodium 137, potassium 4, chlorides 107, CO2 27, BUN 24, and creatinine 1.1. Calcium 8.1. Troponins were 0.174 and 0.195. EKG showed a paced rhythm. The patient apparently sees my partner, rheumatoid lung disease. He uses a nebulizer machine or a rescue inhaler, very infrequently, according to his . Progress note dated 06/27/2022. 82-year-old male seen yesterday in consultation with shortness of breath and chest pain. He was admitted with a diagnosis of CHF. He apparently sees my partner and does have a component of interstitial lung disease. The patient does carry with him a diagnosis of rheumatoid lung. He is currently on 2 L. He is not receiving any IV fluids. He tells me today,, that he doesn't really feel much better. Laboratory data today includes a sodium 136, potassium 4.8, chlorides 105, CO2 26, BUN 28, creatinine 1.21. Calcium is 8.4. N-terminal proBNP from yesterday was 11,500. This confirms the diagnosis of CHF. A chest x-ray shows findings consistent with fluid overload/CHF. Objective - Vital Signs Vital signs: Vital Signs Temp 98.6 F 06/27/22 08:35 Pulse 72 06/27/22 08:35 Resp 21 06/27/22 08:35 BP 191/81 06/27/22 08:35 Pulse Ox 92 L 06/27/22 08:35 FiO2 21 06/26/22 20:17 Intake & Output 06/26/22 06/27/22 06/27/22 18:59 06:59 18:59 Intake Total 250 240 400 Output Total 500 350 Balance -250 -110 400 Intake: Oral 250 240 400 Output: Urine 500 350 Other: Voiding Method Urinal Urinal - Exam No acute distress, oriented 3. Currently on 2 L, with saturations in the low 90s. HEENT examination is grossly unremarkable. Neck supple. Full range of motion. No adenopathy thyromegaly or neck vein distention. Cardiovascular examination reveals regular rhythm rate. S1-S2 normal. No S3 or S4. No discernible murmur noted. Heart rate 72 bpm. Lungs reveal scattered rhonchi, and bibasilar crackles. Breath sounds equal bilaterally. No wheezes. Abdomen soft bowel sounds are heard. No masses or tenderness. Extremities are intact. No cyanosis clubbing or edema. Skin is without rash or lesion. Neurologic examination is brief but nonfocal. - Labs CBC & Chem 7: 06/25/22 17:35 06/27/22 08:50 Labs: Abnormal Lab Results - Last 24 Hours (Table) 06/26/22 06/26/22 06/26/22 Range/Units 11:15 11:32 16:22 Sodium (137-145) mmol/L BUN 24 H (9-20) mg/dL Creatinine 1.31 H (0.66-1.25) mg/dL Glucose 162 H (74-99) mg/dL POC Glucose (mg/dL) 161 H 207 H (70-110) mg/dL Calcium 8.1 L (8.4-10.2) mg/dL 06/26/22 06/27/22 06/27/22 Range/Units 20:21 06:11 08:50 Sodium 136 L (137-145) mmol/L BUN 28 H (9-20) mg/dL Creatinine (0.66-1.25) mg/dL Glucose 223 H (74-99) mg/dL POC Glucose (mg/dL) 233 H 111 H (70-110) mg/dL Calcium (8.4-10.2) mg/dL Assessment and Plan Assessment: Shortness of breath with hypoxemic respiratory failure, secondary to CHF. Rule out non-ST segment elevation myocardial infarction. History of rheumatoid arthritis, with mild interstitial lung disease secondary to RA. Biventricular AICD placement. History of CVA. History of diabetes mellitus. History of GERD. Hyperlipidemia. Hypertension. Multiple other medical problems and comorbidities. Plan: Plan dated 06/26/2022. The patient currently is on 2 L. Labs, x-rays, and medications are reviewed. T he patient appears to have mild interstitial lung disease secondary to rheumatoid arthritis, for which she sees my partner. He uses a rescue inhaler, and a nebulizer machine at home, according to his , very infrequently. The patient will get DuoNeb, 4 times a day and when necessary. I will discontinue the IV Solu-Medrol. Not needed in this patient at this time. We do give him a Medrol Dosepak to be used getting tomorrow. He should follow with my partner in the office. Additional recommendations and suggestions are forthcoming. Plan dated 06/27/2022. The patient's on breathing treatments, and a Medrol Dosepak. He is also receiving Aldactone, and Demadex. We will continue to follow make recommendations where appropriate. The patient's chest x-ray my opinion continues to show CHF. In my opinion, the chest x-rays essentially unchanged. Additional recommendations and suggestions will be made where appropriate. Labs x-rays and medications are all reviewed. Time with Patient: Less than 30
[2022-06-27 11:55] LABS: Glucose,Whole Blood 211 mg/dL (70-110)
--- NOTE | 2022-06-27 12:06 | P.PN ---
Subjective This is an 82-year-old gentleman with a past medical history significant for history of nonischemic cardiomyopathy, history of ventricular tachycardia status post AICD, history of carotid atherosclerosis with prior revascularization, hypertension and dyslipidemia and type 2 diabetes. He follows in the office with Dr. Narvaez. He presented on 06/25/2022 to the office for regular 6 month follow-up visit. He was experiencing symptoms of chest discomfort has been more often and more intense for the last 48 hours. The chest discomfort is nonexertional as well as exertional. And more shortness of breath. In the office he was having ongoing chest discomfort about 3-5/10 in intensity. For that reason the patient was referred to the emergency department for further evaluation and workup. He underwent a workup including an EKG which showed ventricular paced rhythm and also blood work showed mildly abnormal troponin which is chronic to him. His blood pressure remained elevated. 06/27/2022 Patient seen and examined at bedside, no acute distress. He continues to have midsternal chest pressure, that has improved from yesterday. His blood pressure remained elevated at 191/81. Yesterday he was started on losartan 25 mg daily and spironolactone 25 mg daily. Labs: Sodium 136, potassium 4.8, BUN 28, serum creatinine 1.21 Echocardiogram revealed EF of 4045 percent, moderate severe LVH, mild mitral regurgitation, 2+ aortic regurgitation. GENERAL: In n no acute distress. NECK: Supple without JVD or thyromegaly. LUNGS: Breath sounds bilateral crackles to auscultation bilaterally. Respiration equal and unlabored. HEART: Regular rate and rhythm without murmurs, rubs or gallops. S1 and S2 heard. EXTREMITIES: Normal range of motion, no edema. No clubbing or cyanosis. Peripheral pulses intact. ASSESSMENT Hypertension emergency Chest discomfort likely secondary to above Chronic myocardial injury without evidence of acute ischemia on EKG History of ventricular tachycardia status post AICD History of carotid atherosclerosis with prior revascularization Hypertension Dyslipidemia Type 2 diabetes PLAN US renal to rule out renal artery stenosis Increase carvedilol to 12.5 mg BID Increase losartan to 50 mg daily Restart Torsemide Continue aspirin, statin, Plavix, spironolactone. Monitor renal function and electrolytes Low sodium diet Further recommendations based on clinical course Nurse Practitioner note has been reviewed, I agree with a documented findings and plan of care. Patient was seen and examined. Objective - Vital Signs Vital signs: Vital Signs Temp 98.6 F 06/27/22 08:35 Pulse 72 06/27/22 08:35 Resp 21 06/27/22 08:35 BP 191/81 06/27/22 08:35 Pulse Ox 92 L 06/27/22 08:35 FiO2 21 06/26/22 20:17 Intake & Output 06/26/22 06/27/22 06/27/22 18:59 06:59 18:59 Intake Total 250 240 400 Output Total 500 350 Balance -250 -110 400 Intake: Oral 250 240 400 Output: Urine 500 350 Other: Voiding Method Urinal Urinal - Labs CBC & Chem 7: 06/25/22 17:35 06/27/22 08:50 Labs: Abnormal Lab Results - Last 24 Hours (Table) 06/26/22 06/26/22 06/26/22 Range/Units 11:15 16:22 20:21 Sodium (137-145) mmol/L BUN 24 H (9-20) mg/dL Creatinine 1.31 H (0.66-1.25) mg/dL Glucose 162 H (74-99) mg/dL POC Glucose (mg/dL) 207 H 233 H (70-110) mg/dL Calcium 8.1 L (8.4-10.2) mg/dL 06/27/22 06/27/22 06/27/22 Range/Units 06:11 08:50 11:54 Sodium 136 L (137-145) mmol/L BUN 28 H (9-20) mg/dL Creatinine (0.66-1.25) mg/dL Glucose 223 H (74-99) mg/dL POC Glucose (mg/dL) 111 H 211 H (70-110) mg/dL Calcium (8.4-10.2) mg/dL
[2022-06-27] MEDS: FUROSEMIDE 10 MG/ML 4 ML VIAL IV SCH (14:47)
[2022-06-27 17:01] LABS: Glucose,Whole Blood 277 mg/dL (70-110)
[2022-06-27] MEDS: carvediloL 12.5 MG TAB PO SCH (17:04)
[2022-06-27 20:14] LABS: Glucose,Whole Blood 102 mg/dL (70-110)
[2022-06-27] MEDS: INSULIN DETEMIR (LEVEMIR) 100 UNIT/ML SYR SQ SCH (20:28)
[2022-06-27] MEDS ORDERED: MELATONIN 5 MG TABLET PO ONE (20:45)
[2022-06-27] MEDS: ATORVASTATIN 80 MG TAB PO SCH (20:45)
[2022-06-28] MEDS: NITROGLYCERIN OINT 1 INCH/GM PACKET TOPICAL SCH ×3 (00:42→11:05)
[2022-06-28 06:25] LABS: Glucose,Whole Blood 136 mg/dL (70-110)
[2022-06-28] MEDS: INSULIN ASPART (NovoLOG) 100 UNIT/ML VIAL SQ SCH ×4 (06:48→12:17)
[2022-06-28] MEDS: carvediloL 12.5 MG TAB PO SCH (06:52)
[2022-06-28] MEDS: IPRATROPIUM-ALBUTEROL 3 ML NEB INHALATION SCH ×2 (08:35→11:52)
[2022-06-28] MEDS: methylPREDNISolone 4 MG TAB TAPER PO SCH (09:06)
[2022-06-28] MEDS: ASPIRIN 81 MG PO SCH (09:06)
[2022-06-28] MEDS: allopurinoL 100 MG TAB PO SCH (09:06)
[2022-06-28] MEDS: CLOPIDOGREL 75 MG TAB PO SCH (09:06)
[2022-06-28] MEDS: LOSARTAN 50 MG TAB PO SCH (09:06)
[2022-06-28] MEDS: SPIRONOLACTONE 25 MG TAB PO SCH (09:06)
[2022-06-28] MEDS ORDERED: FUROSEMIDE 40 MG TAB PO SCH (09:15)
--- NOTE | 2022-06-28 09:16 | US ---
EXAMINATION TYPE: US renal doppler DATE OF EXAM: 06/28/2022 COMPARISON: NONE CLINICAL HISTORY: Rule out renal artery stenosis. MEASUREMENTS: RENAL SIZE: Rt Kidney: 10.3 x 5.1 x 4.4cm, cyst measuring 0.9 x 1.0 x 1.0cm Lt Kidney: 10.1 x 4.5 x 2, cysts measuring 1.5 x 1.1 x 1.2cm and 1.5 x 1.6 x 1.7cm RESISTANCE INDEX Right: 0.77 Left: -- RA/AO RATIO (< 3.5 ) Right: 1.1 Left: 1.0 RA VELOCITY ( < 180 cm/s) Right: 96.5 Left: 91.7 Study extremely technically difficult. Patient unable to hold his breath. Left kidney mostly obscured by overlying bowel gas. Patient coughing with SOB. 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 Limited views of aorta due to overlying bowel gas. Technically limited study shows no obvious renal artery stenosis. IMPRESSION: Exam is limited. Renal artery CTA or MRA could be performed for better evaluation
[2022-06-28 09:44] LABS: Calcium 8.4 mg/dL (8.4-10.2); Potassium 4.2 mmol/L (3.5-5.1)
[2022-06-28] MEDS: FUROSEMIDE 10 MG/ML 4 ML VIAL IV SCH (10:40)
--- NOTE | 2022-06-28 11:09 | CDI ---
Documentation Clarification Form Date: 06/27/2022 08:23:00 AM From: Caren Alvarez CCS, CCDS Admit Date: 06/25/2022 06:58:00 PM Patient Name: Mark Diaz Visit Number: [id number] Discharge Date: ATTENTION: The Clinical Documentation Specialists (CDI) and [facility] Coding Staff appreciate your assistance in clarifying documentation. Please respond to the clarification below the line at the bottom and electronically sign. The CDI & [facility] Coding staff will review the response and follow-up if needed. Please note: Queries are made part of the Legal Health Record. If you have any questions, please contact the author of this message via ITS. Dr. Siddharth Simons: Your patient has [insert documentation of symptoms or findings, with date, location]. Based on this information and the findings below, is there an additional diagnosis that is clinically appropriate for this patient? 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 Clinical Indicators: Presented to the ED on 06/25 with Chest Pain with history of previous stent placement, also some SOB. Admit with Acute Non-STEMI, Pulmonary edema and Hyperglycemia. 06/25 VS: T 97.8, P 63, R 20, BP 184/65, PO 96 RA 06/26 VS: T 98.5, P 66, R 14, BP 177/64, PO 98 2Lnc, 90 2Lnc 06/27 VS: T 98.4, P 68, 71, R 19, BP 198/89, PO 94 3Lnc 06/25 LAB: WBC 13.7, Neutrophils 7.9; APTT 21.9; Na 134, BUN 24, Creatinine 1.55, Glucose 408, AST 16, Troponin 0.181, 0.174. *06/26: 0.195). 06/26 BNP: 11,500. 06/25 CXR: Some mild pulmonary edema and consistent with heart failure that is increased. 06/26 ECHO: LVH with preserved systolic function. Mitral calcification with thickening of the mitral leaflets, Mild MR, 2+ AR. Treatment 06/25: Telemetry, Cardiology Consult, Cardiac rehab post AMI, po Aspirin 324 mg x1, Nitropaste x1, IV Heparin q24H, Insulin sq, Nitro sl q5M/prn. 06/26: O2 2Lnc - 3Lnc Home meds: Zyloprim, Demadex, Coreg, Pravachol, Insulin sq, Gabapentin, Prednisone, Ultram, Prilosec, Plavix, Calcium. Is there an additional diagnosis that is clinically appropriate for this patient? [ ] Acute Hypoxic Respiratory Failure [ ] Acute Respiratory Insufficiency [ ] Respiratory Failure is ruled out [ ] Other Diagnosis, please specify: [ x ] Unable to determine (Template Last Revised: January 2021) MTDD
[2022-06-28 12:04] LABS: Glucose,Whole Blood 278 mg/dL (70-110)
[2022-06-28 12:53] VITALS: BP 148/70; RESP 18; TEMP 98
[2022-06-28 13:06] VITALS: PULSE 64
--- NOTE | 2022-06-28 13:22 | P.DS ---
Providers Date of admission: 06/25/22 18:58 Expected date of discharge: 06/28/22 Attending physician: Tomasz Trammell MD Consults: 06/25/22 18:58 Consult Physician Urgent Consulting Provider: [facility] Consult Reason/Comments: Non-STEMI, pulmonary edema Do you want consulting provider notified?: Yes 06/26/22 10:33 Consult Physician Routine Consulting Provider: Siddharth Simons Consult Reason/Comments: ILD ? Flair Do you want consulting provider notified?: Yes Primary care physician: [facility] Course: Non-ST segment elevated myocardial infarction Cardiomyopathy, EF now 40-45%, prior 55-60% Acute on chronic systolic Heart failure exacerbation Acute exacerbation of interstitial lung disease Rheumatoid Arthritis CKD III HTN, controlled HLD DM II The patient is an 82-year-old male with a PMH of carotid stenosis status post revascularization, AICD placement, chronic kidney disease, type II DM, hypertension, and hyperlipidemia who presents to the emergency room with complaints of chest discomfort. In the ED he underwent an extensive evaluation. Chest x-ray in the emergency room revealed mild pulmonary edema with EKG showing V paced rhythm at 62 bpm. Laboratory evaluation was remarkable for troponin of 0.245, BUN 24, creatinine 1.55, and WBC count 13.7. He was started on a heparin infusion, aspirin, and statin. Cardiology was consulted. Pulmonology consulted as well for history of rheumatoid arthritis related lung disease. Pt was treated with steroids and bronchodilators. His echo noted reduction in EF to 45% [place] 55%, [place] [address], and so patient was treated with IV lasix, after which he reported improvement in his chest discomfort and dyspnea. Pt was cleared by cardiology to return home on increased dose of diuretics and close f/u. I spent 34 minutes coordinating this complex discharge. Gen: awake, alert HEENT: normocephalic, atraumatic, good hearing acuity, moist mucous membranes Resp: good air exchange, breathing comfortably with no accessory muscle use, left-sided crackles CVS: good distal perfusion x 4, regular rate and rhythm, no murmurs GI: soft, NTTP, ND : no SPT, no CVAT, montes catheter not present MSK: no pitting edema, no clubbing Neuro: non-focal, moving all extremities Psych: cooperative, euthymic mood Patient Condition at Discharge: Good Plan - Discharge Summary New Discharge Prescriptions: New Losartan [Cozaar] 50 mg PO DAILY #30 tab Spironolactone [Aldactone] 25 mg PO DAILY #30 tab Aspirin 81 mg PO DAILY #30 tab Furosemide [Lasix] 40 mg PO DAILY #30 tab Continue Omeprazole [PriLOSEC] 20 mg PO DAILY Pravastatin Sodium [Pravachol] 40 mg PO HS allopurinoL [Zyloprim] 100 mg PO DAILY Calcium Carbonate/Vitamin D3 [Calcium 600 mg-Vit D3 5 mcg (200 unit)] 1 tab PO DAILY INSULIN ASPART (NovoLOG) [NovoLOG (formulary)] See Protocol SQ TID-W/MEALS PRN PRN Reason: Blood Sugar - High Clopidogrel [Plavix] 75 mg PO DAILY predniSONE 10 mg PO DAILY traMADol HCl [Ultram] 50 mg PO Q12HR PRN 30 Days #60 tab PRN Reason: Pain Changed carvediloL [Coreg] 12.5 mg PO BID #60 tab Insulin Detemir (Levemir) [Levemir] 20 unit SQ HS #0 Discontinued Gabapentin 600 mg PO TID PRN PRN Reason: Pain Torsemide [Demadex] 10 mg PO Q48H Discharge Medication List Omeprazole [PriLOSEC] 20 mg PO DAILY 11/24/18 [History] Pravastatin Sodium [Pravachol] 40 mg PO HS 02/27/19 [History] allopurinoL [Zyloprim] 100 mg PO DAILY 10/09/19 [History] Calcium Carbonate/Vitamin D3 [Calcium 600 mg-Vit D3 5 mcg (200 unit)] 1 tab PO DAILY 06/05/21 [History] INSULIN ASPART (NovoLOG) [NovoLOG (formulary)] See Protocol SQ TID-W/MEALS PRN 06/05/21 [History] Clopidogrel [Plavix] 75 mg PO DAILY 08/23/21 [History] traMADol HCl [Ultram] 50 mg PO Q12HR PRN 30 Days #60 tab 05/14/22 [Rx] predniSONE 10 mg PO DAILY 06/25/22 [History] Aspirin 81 mg PO DAILY #30 tab 06/28/22 [Rx] Furosemide [Lasix] 40 mg PO DAILY #30 tab 06/28/22 [Rx] Insulin Detemir (Levemir) [Levemir] 20 unit SQ HS #0 06/28/22 [Rx] Losartan [Cozaar] 50 mg PO DAILY #30 tab 06/28/22 [Rx] Spironolactone [Aldactone] 25 mg PO DAILY #30 tab 06/28/22 [Rx] carvediloL [Coreg] 12.5 mg PO BID #60 tab 06/28/22 [Rx] Follow up Appointment(s)/Referral(s): Jason Isaac MD [STAFF PHYSICIAN] - 2 Weeks (office on lunch,. call office after 1pm and tell them you want to schedule a post hospital follow up appt. was hospitalized for NSTEMI and pulmonary edema discharged today. ) Darien Narvaez MD [STAFF PHYSICIAN] - 07/02/22 5:00 pm ([facility] ) Basim Thurston [Primary Care Provider] - 07/05/22 9:15 am Patient Instructions/Handouts: Heart Attack (DC), Pulmonary Edema (DC) Discharge Disposition: HOME SELF-CARE
--- NOTE | 2022-06-28 13:49 | P.PN ---
Subjective This is an 82-year-old gentleman with a past medical history significant for history of nonischemic cardiomyopathy, history of ventricular tachycardia status post AICD, history of carotid atherosclerosis with prior revascularization, hypertension and dyslipidemia and type 2 diabetes. He follows in the office with Dr. Narvaez. He presented on 06/25/2022 to the office for regular 6 month follow-up visit. He was experiencing symptoms of chest discomfort has been more often and more intense for the last 48 hours. The chest discomfort is nonexertional as well as exertional. And more shortness of breath. In the office he was having ongoing chest discomfort about 3-5/10 in intensity. For that reason the patient was referred to the emergency department for further evaluation and workup. He underwent a workup including an EKG which showed ventricular paced rhythm and also blood work showed mildly abnormal troponin which is chronic to him. His blood pressure remained elevated. 06/28/2022 Patient seen and examined at bedside, no acute distress. He denies any chest discomfort or shortness of breath. He denies any complaints. Continues to have a cough. His blood pressure remained elevated SBP 190s overnight but improved this AM with BP 166/71. His antihypertensives continued to be adjusted. Labs: Sodium 137, potassium 4.2, BUN 33, serum crit 1.36 Echocardiogram revealed EF of 4045% moderate severe LVH, mild mitral regurgitation, 2+ aortic regurgitation. GENERAL: In n no acute distress. NECK: Supple without JVD or thyromegaly. LUNGS: Breath sounds bilateral crackles to auscultation bilaterally. Respiration equal and unlabored. HEART: Regular rate and rhythm without murmurs, rubs or gallops. S1 and S2 heard. EXTREMITIES: Normal range of motion, no edema. No clubbing or cyanosis. Peripheral pulses intact. ASSESSMENT Hypertension emergency Chest discomfort likely secondary to above Chronic myocardial injury without evidence of acute ischemia on EKG History of ventricular tachycardia status post AICD History of carotid atherosclerosis with prior revascularization Hypertension Dyslipidemia Type 2 diabetes PLAN US renal to rule out renal artery stenosis- difficult study unable to rule out renal artery stenosis at thsi time. Transition to PO Lasix 40mg lui Continue losartan 50mg daily, spironolactone 25 mg daily, aspirin, Plavix, statin Continue Coreg 12.5 mg twice a day From cardiology perspective, patient can be discharged home. Further evaluation of patient's blood pressure and medication management as an outpatient. Follow up with Dr. Narvaez in 1 week. Nurse Practitioner note has been reviewed, I agree with a documented findings and plan of care. Patient was seen and examined. Objective - Vital Signs Vital signs: Vital Signs Temp 98 F 06/28/22 12:50 Pulse 62 06/28/22 12:50 Resp 18 06/28/22 12:50 BP 148/70 06/28/22 12:50 Pulse Ox 98 06/28/22 12:50 FiO2 21 06/26/22 20:17 Intake & Output 06/27/22 06/28/22 06/28/22 18:59 06:59 18:59 Intake Total 850 0 Output Total 550 Balance 300 0 Intake: Oral 850 0 Output: Urine 550 Other: Voiding Method Urinal Urinal - Labs CBC & Chem 7: 06/25/22 17:35 06/28/22 09:12 Labs: Abnormal Lab Results - Last 24 Hours (Table) 06/27/22 06/28/22 06/28/22 Range/Units 16:52 06:24 09:12 BUN 33 H (9-20) mg/dL Creatinine 1.36 H (0.66-1.25) mg/dL Glucose 169 H (74-99) mg/dL POC Glucose (mg/dL) 277 H 136 H (70-110) mg/dL 06/28/22 Range/Units 12:02 BUN (9-20) mg/dL Creatinine (0.66-1.25) mg/dL Glucose (74-99) mg/dL POC Glucose (mg/dL) 278 H (70-110) mg/dL
--- NOTE | 2022-06-29 05:30 | PN ---
PROGRESS NOTE SUBJECTIVE: 82-year-old male seen 2 days ago in consultation with shortness of breath, secondary to CHF. Today, he is lying in bed, he feels much better. He is on 3 L nasal cannula. He is not receiving any IV fluids. The patient denies any worsening of his breathing. Denies any cough or phlegm production. There is no chest pain or chest discomfort. LABORATORY DATA: Labs today include a sodium 137, potassium 4.2, chloride is 103, CO2 28, with a BUN and creatinine of 33 and 1.36. Calcium was 8.4. Glucose is 169. PHYSICAL EXAMINATION: GENERAL: He appears in no acute distress. He is resting comfortably. He is on 3 L nasal cannula. He is lying flat in bed. No conversational dyspnea or use of accessory muscles. HEENT: Grossly unremarkable. NECK: Supple. Full range of motion. No adenopathy. Neck veins are flat. CARDIOVASCULAR: Reveals regular rhythm and rate. S1, S2 normal. There is no S3, S4, or murmur. Heart rate about 80 beats per minute. LUNGS: Reveal some mild scattered crackles. Breath sounds are greatly improved. No wheezes or rhonchi. Breath sounds equal bilaterally. ABDOMEN: Soft. Bowel sounds are heard. EXTREMITIES: Intact. No cyanosis, clubbing, or edema. SKIN: Without rash. NEUROLOGIC: Examination is nonfocal. Labs have been reviewed. ASSESSMENT: 1. Shortness of breath, with mild hypoxemic respiratory failure, secondary to congestive heart failure. 2. Rule out [id number] elevation myocardial infarction. 3. History of rheumatoid arthritis, with mild interstitial lung disease, secondary to rheumatoid arthritis. 4. Biventricular AICD placement. 5. History of cerebrovascular accident. 6. History of diabetes mellitus. 7. History of gastroesophageal reflux disease. 8. History of hyperlipidemia. 9. History of hypertension. 10.Multiple other medical problems and comorbidities. PLAN: The patient is doing well. He is feeling much better. He continues on diuretic. No additional recommendations are made. Prognosis is certainly guarded. He will follow up with my partner for his interstitial lung disease. The patient is being considered for possible discharge in the next 24 to 48 hours. MMODL / IJN: [id number] /
--- NOTE | 2022-06-29 07:51 | CDI ---
Documentation Clarification Form Date: 06/29/2022 07:43:00 AM, 07/02/2022 07:39 AM From: Caren Alvarez CCS, CCDS Admit Date: 06/25/2022 06:58:00 PM Patient Name: Mark Diaz Visit Number: [id number] Discharge Date: 06/28/2022 12:56:00 PM ATTENTION: The Clinical Documentation Specialists (CDI) and [facility] Coding Staff appreciate your assistance in clarifying documentation. Please respond to the clarification below the line at the bottom and electronically sign. The CDI & [facility] Coding staff will review the response and follow-up if needed. Please note: Queries are made part of the Legal Health Record. If you have any questions, please contact the author of this message via ITS. Becca Duarte: Conflicting documentation has been found in the medical record. As attending physician, please provide clarification. Acute on Chronic Systolic Heart Failure exacerbation is documented in the 06/28 Discharge Summary. Acute Diastolic Heart Failure is documented in the 06/27 Query Response to the Pulmonary Consulting Physician. 06/27 ECHO Results: Left ventricular hypertrophy with preserved systolic function. 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 Clinical Indicators: Presented to the ED on 06/25 with Chest Pain with history of previous stent placement, also some SOB. Admit with Acute Non-STEMI, Pulmonary edema and Hyperglycemia. 06/25 VS: T 97.8, P 63, R 20, BP 184/65, PO 96 RA 06/25 LAB: WBC 13.7, Neutrophils 7.9; APTT 21.9; Na 134, BUN 24, Creatinine 1.55, Glucose 408, AST 16, Troponin 0.181, 0.174. *06/26: 0.195). 06/26 BNP: 11,500. 06/25 CXR: Some mild pulmonary edema and consistent with heart failure that is increased. 06/26 ECHO: LVH with preserved systolic function. Mitral calcification with thickening of the mitral leaflets, Mild MR, 2+ AR. Treatment 8/1: Telemetry, Cardiology Consult, Cardiac rehab post AMI, O2 2Lnc, po Aspirin 324 mg x1, Nitropaste x1, IV Heparin q24H, Insulin sq, Nitro sl q5M/prn. 06/27 IV Lasix ordered, not given. 06/28: po Lasix 40 mg Daily. Home meds: Zyloprim, Demadex, Coreg, Pravachol, Insulin sq, Gabapentin, Prednisone, Ultram, Prilosec, Plavix, Calcium. Please clarify the Type & Acuity of CHF: [ ] Acute Diastolic Heart Failure [ x] Acute on Chronic Diastolic Heart Failure [ ] Acute Systolic Heart Failure [ ] Acute on Chronic Systolic Heart Failure [ ] Other (please specify) [ ] Unable to determine (Template Last Revised: January 2021) MTDD
== END 2022-06-28 12:56 | disposition home or self-care (01) | DRG 291 ==
LOC: EC 16:35 → 3SCARD 18:58
PROVIDERS: ADMIT Family Medicine; ATTEND Family Medicine
DX: I13.0 Hypertensive heart and chronic kidney disease with heart failure and stage 1 through stage 4 chronic kidney disease, or unspecified chronic kidney disease (principal); I50.23 Acute on chronic systolic (congestive) heart failure; J96.91 Respiratory failure, unspecified with hypoxia; J84.9 Interstitial pulmonary disease, unspecified; I16.1 Hypertensive emergency; I42.8 Other cardiomyopathies; E11.22 Type 2 diabetes mellitus with diabetic chronic kidney disease; J84.10 Pulmonary fibrosis, unspecified; E11.65 Type 2 diabetes mellitus with hyperglycemia; N18.30 Chronic kidney disease, stage 3 unspecified; M06.9 Rheumatoid arthritis, unspecified; E78.5 Hyperlipidemia, unspecified; M05.10 Rheumatoid lung disease with rheumatoid arthritis of unspecified site; Z79.4 Long term (current) use of insulin; I65.29 Occlusion and stenosis of unspecified carotid artery; E87.5 Hyperkalemia; K21.9 Gastro-esophageal reflux disease without esophagitis; M10.9 Gout, unspecified; H91.90 Unspecified hearing loss, unspecified ear; Z95.810 Presence of automatic (implantable) cardiac defibrillator; Z91.041 Radiographic dye allergy status; Z79.899 Other long term (current) drug therapy; Z79.02 Long term (current) use of antithrombotics/antiplatelets; Z86.73 Personal history of transient ischemic attack (TIA), and cerebral infarction without residual deficits; Z82.49 Family history of ischemic heart disease and other diseases of the circulatory system
CPT/HCPCS: 36415; 71045; 71046; 80048; 80053; 80061; 83036; 83735; 83880; 84484; 85025; 85610; 85730; 93005; 93306; 93975; 94640; 96365; 99291

== ENCOUNTER → 2022-08-08 | Outpatient (CLI) | payer MEDICARE, BC ==
[2022-08-08 10:01] VITALS: BP 166/76; PULSE 60; RESP 16
--- NOTE | 2022-08-08 14:38 | P.PAINPG ---
PQRS Measure Charge Sheet Comment: A 82 yr old male w at side with a history of severe and chronic low back pain secondary to lumbar degenerative disc diseases and lumbar spondylosis with facet arthropathy without myelopathy presents today for medication refills. Pain level is currently at 8/10 in intensity, constant, localized in the lower lumbar spine, dull/ achy in character w shooting towards the BL hips. Pain is provoked by standing/ walking for periods of 20 min or more. Pain is alleviated with PT in anoop past, home stretching regimen, manual massage by his , heat, repositioning and rest. Interventional pain procedures completed include BL SI injections Patient is currently on Tramadol, Neurontin Patient denies any side effects of the medication(s), denies excessive drowsiness or sleepiness, denies suicidal ideation and reports that the current pain medication is helping to control the pain and improve activities of daily living. Patient denies any motor or sensory deficits. Patient denies any fever or night sweats, denies any change in the bowel movements or urination. Physical Examination: -Constitutional: Cooperative. Not in acute distress . - Neurologic: Cranial nerve II to XII intact. No focal neurological deficits. - Psychatric: Alert & oriented x 3. Matching mood & appropriate affect. Judgment and insight intact. - Musculoskeletal: Cervical spine: Muscle bulk/ tone/ strength in the bilateral upper extremities normal Vertebral body tenderness to palpation over Spurling test positive Distraction test positive Facet loading test positive Thoracic spine Muscle bulk / tone/ strength in the bilateral paraspinal muscles normal Vertebral body tender to palpation over Facet loading test positive Lumbar spine: Motor bulk/ tone/ strength lower extremities , thigh and legs : 5/5 Deep tendon reflexes : Normal Knee Jerk. Normal Ankle Jerk . Vertebral body tenderness to palpation over L4, L5 Lumbar Facet Loading Test positive Straight Leg Raise: positive at 30 degrees right side/ left side Gaenslen's Test positive Sacral spine : Severe tenderness over the Sacroiliac joint: right side / left side Range of motion: Flexion of the lumbar spine <60 degrees Range of motion: Extension of the lumbar spine <20 degrees Gaenslen's Test positive Adán's Test positive Estelita test: positive right side / left side Thigh Thrust Test Sacral Thrust Test Assessment and plan: Chronic low back pain secondary to lumbar degenerative disc disease , lumbar spondylosis with facet arthropathy without myelopathy Chronic and current use of high-risk medication (Opioids). The patient was counseled about risk of opioid use, psychological risk associated with opioids and was orally counseled to not overuse , divert or sell medications. Pt is to store medication in a safe location. The patient is counseled against driving while using narcotic medications and also not to use alcohol or any illicit recreational drugs. Patient verbalized understanding that the lack of compliance will result in failure to renew narcotic prescription(s) as well as possible discharge from the clinic Diagnoses, prognosis and treatment options including but not limited to physical therapy, surgical interventions, interventional therapies and med ication management including narcotics and adjuvant medication were discussed. All patient questions answered MAPS reviewed and it was appropriate. UDSs from 05/14/22 reviewed and consistent Prescription refill for Tramadol and Neurontin w 1 RF I have spent less than 30 minutes on patient care today. Dr Shore was available by phone for the evaluation of this patient. The time was used to review the medical records including relevant urine studies and Prescription history (MAPs), review of the available imaging, evaluation and examination of the patient, coordination of care with the medical staff and if applicable referring physicians, as well as creation of the medical record - Pain Location Lower Back Non-Pharmacological Interventions: Heat, Home Exercise, Inactivity, Massage, Physical Therapy, Sitting, Stretching Pharmacological Interventions: Epidural, PRN Medication, Scheduled Medication PQRS Narrative: Smoking Status Former smoker Narcotic Agreement Date Signed 11/27/21 Hx Alcohol Use (MH) Yes: Occasional Home Medications: Ambulatory Orders Omeprazole [PriLOSEC] 20 mg PO DAILY 11/24/18 Pravastatin Sodium [Pravachol] 40 mg PO HS 02/27/19 allopurinoL [Zyloprim] 100 mg PO DAILY 10/09/19 Calcium Carbonate/Vitamin D3 [Calcium 600 mg-Vit D3 5 mcg (200 unit)] 1 tab PO DAILY 06/05/21 INSULIN ASPART (NovoLOG) [NovoLOG (formulary)] See Protocol SQ TID-W/MEALS PRN 06/05/21 Clopidogrel [Plavix] 75 mg PO DAILY 08/23/21 predniSONE 10 mg PO DAILY 06/25/22 Aspirin 81 mg PO DAILY #30 tab 06/28/22 Furosemide [Lasix] 40 mg PO DAILY #30 tab 06/28/22 Insulin Detemir (Levemir) [Levemir] 20 unit SQ HS #0 06/28/22 Losartan [Cozaar] 50 mg PO DAILY #30 tab 06/28/22 Spironolactone [Aldactone] 25 mg PO DAILY #30 tab 06/28/22 carvediloL [Coreg] 12.5 mg PO BID #60 tab 06/28/22 Gabapentin 600 mg PO TID 30 Days #90 tab 08/08/22 traMADol HCl [Ultram] 50 mg PO Q12HR PRN 30 Days #60 tab 08/08/22 Controlled Substance Measures - Controlled Substance Measures Is patient prescribed a controlled substance at discharge?: Yes When asked, does pt state using other controlled substances?: No If prescribed controlled substance>3 days was MAPS reviewed?: Yes If Rx opioid, was Start Talking consent form obtained?: Yes Was information provided regarding opioid addiction?: Yes
== END ==
LOC: PNWHC3 09:41
PROVIDERS: ATTEND Specialist
DX: M51.36 Other intervertebral disc degeneration, lumbar region (principal); M47.816 Spondylosis without myelopathy or radiculopathy, lumbar region; G89.29 Other chronic pain; Z79.891 Long term (current) use of opiate analgesic; Z88.1 Allergy status to other antibiotic agents; Z91.048 Other nonmedicinal substance allergy status; Z91.041 Radiographic dye allergy status; Z91.013 Allergy to seafood; Z88.8 Allergy status to other drugs, medicaments and biological substances; Z87.891 Personal history of nicotine dependence
CPT/HCPCS: 99211

== ENCOUNTER → 2022-08-23 | Outpatient (CLI) | payer MEDICARE, BC ==
[2022-08-23 18:22] LABS: HCT 43.6 % (39.6-50.0); HGB 13.8 g/dL (13.0-17.0); MCH 29.6 pg (27.0-32.0); MCHC 31.7 g/dL (32.0-37.0); MCV 93.4 fL (80.0-97.0); Mean Platelet Volume 10.8 fL (9.5-12.2); NRBC Per 100 WBC 0.1 /100 WBCS (0.0-0.0); Platelet Count 362 X 10*3/uL (140-440); RBC 4.67 X 10*6/uL (4.40-5.60); RDW 15.4 % (11.5-14.5); WBC 28.79 X 10*3/uL (4.50-10.00)
[2022-08-23 18:38] LABS: % Iron Saturation 24.77 (15.00-50.00); African American GFR (CKD) 42.9 (60.0-200.0); Albumin 3.6 g/dL (3.8-4.9); Albumin/Globulin Ratio 1.16 (1.60-3.17); BUN/Creat Ratio 17.32 Ratio (12.00-20.00); Blood Urea Nitrogen 29.1 mg/dL (9.0-27.0); Calcium 8.8 mg/dL (8.7-10.3); Carbon Dioxide 24.1 mmol/L (20.0-27.5); Globulin 3.1 g/dL (1.6-3.3); Magnesium 1.5 mg/dL (1.5-2.4); Phosphorus 3.3 mg/dL (2.4-5.1); Potassium 4.8 mmol/L (3.5-5.5); Total Bilirubin 0.6 mg/dL (0.30-1.20); Total Protein 6.6 g/dL (6.2-8.2); Uric Acid 7.7 mg/dL (3.7-8.7)
[2022-08-23 20:35] LABS: Appearance,Urine Clear (Clear); Bilirubin,Urine Negative (Negative); Blood,Urine Negative (Negative); Color,Urine Dark Yellow (Yellow); Ketones,Urine Trace mg/dL (Negative); Nitrite,Urine Negative (Negative); Specific Gravity,Urine 1.021 (1.001-1.030)
[2022-08-23 20:52] LABS: Bacteria,Urine None Seen /HPF (None Seen)
== END | disposition home or self-care (01) ==
LOC: LABWHC1 11:39
PROVIDERS: ATTEND Nurse Practitioner Acute Care
DX: N25.81 Secondary hyperparathyroidism of renal origin (principal); N18.30 Chronic kidney disease, stage 3 unspecified; D63.1 Anemia in chronic kidney disease; N39.0 Urinary tract infection, site not specified; R80.9 Proteinuria, unspecified; M10.9 Gout, unspecified; E55.9 Vitamin D deficiency, unspecified
CPT/HCPCS: 36415; 80053; 81001; 82043; 82306; 82570; 82728; 83036; 83540; 83550; 83735; 83970; 84100; 84550; 85027

== ENCOUNTER → 2022-10-22 | Outpatient (CLI) | payer MEDICARE, BC ==
--- NOTE | 2022-10-22 13:59 | USB ---
Technique: Method: Targeted. Findings: The retroareolar of both breasts was scanned. A complete US of all four quadrants of the breast and retro-areolar region were reviewed. Prominent focal lytic areas favoring fibroglandular tissue is seen in the bilateral breasts at subareolar level. Overall Assessment: Incomplete: need additional imaging evaluation, BI-RAD 0 Management: Diagnostic Mammogram of both breasts. Bilateral breast mammogram to confirm suspected gynecomastia. Electronically signed and approved by: Sedrick Coleman M.D.
--- NOTE | 2022-10-23 07:36 | MM ---
Reason for Exam: Clinical finding. Baseline mammogram. Indicated Problems: Pain of the right side (Focal) for 1 Week(s) : behind nipple uncomfortable swollen. Prior Study Comparison: Patient's first Mammogram. No prior studies available for comparison. Tissue Density: The breast tissue is heterogeneously dense. This may lower the sensitivity of mammography. Findings: Analyzed By CAD. Tissue subareolar region is slightly more prominent in the right breast versus left breast. No obvious suspicious mass seen on ultrasound or mammogram. Findings consistent with bilateral gynecomastia. Overall Assessment: Benign, BI-RAD 2 Management: Clinical Management of both breasts. Managed clinically suspected bilateral gynecomastia. Results were given to the patient verbally at the time of exam. Electronically signed and approved by: Sedrick Coleman M.D.
== END | disposition home or self-care (01) ==
LOC: RADUSWWP 13:12
PROVIDERS: ATTEND Internal Medicine
DX: N64.4 Mastodynia (principal)
CPT/HCPCS: 77066; 76641; G0279; 77062

== ENCOUNTER → 2022-10-31 | Outpatient (CLI) | payer MEDICARE, BC ==
[2022-10-31 10:59] VITALS: BP 185/61; PULSE 61; RESP 18; TEMP 97.5
--- NOTE | 2022-10-31 14:25 | P.PAINPG ---
PQRS Measure Charge Sheet Comment: A 82 yr old wheelchair bound male w at side with a history of severe and chronic low back pain secondary to lumbar DDD and spondylosis with facet arthropathy without myelopathy presents today for medication refills. Pain level is currently at 7 /10 in intensity, constant, localized in the lower lumbar spine where it meets the tailbone, sharp in character w shooting towards the buttocks and BL hips. Pain is provoked by sitting/ walking for periods of 10 min or more, or standing for periods of 20 min or more. Pain is alleviated with medications, injections, PT x 6 wks, use of a wheelchair for ambulation, hot showers and rest. Interventional pain procedures completed include Caudal [place], BL RFA L2-L5, BL SI x 3, Lumbar TPIs Patient is currently on Tramadol 50mg #60, Neurontin 600mg #90 Patient denies any side effects of the medication(s), denies excessive drowsiness or sleepiness, denies suicidal ideation and reports that the current pain medication is helping to control the pain and improve activities of daily living. Patient denies any motor or sensory deficits. Patient denies any fever or night sweats, denies any change in the bowel movements or urination. Physical Examination: -Constitutional: Cooperative. Not in acute distress . - Neurologic: Cranial nerve II to XII intact. No focal neurological deficits. - Psychatric: Alert & oriented x 3. Matching mood & appropriate affect. Judgment and insight intact. - Musculoskeletal: Cervical spine: Muscle bulk/ tone/ strength in the bilateral upper extremities normal Vertebral body tenderness to palpation over Spurling test positive Distraction test positive Facet loading test positive Thoracic spine Muscle bulk / tone/ strength in the bilateral paraspinal muscles normal Vertebral body tender to palpation over Facet loading test positive Lumbar spine: Motor bulk/ tone/ strength lower extremities , thigh and legs : 5/5 Deep tendon reflexes : Normal Knee Jerk. Normal Ankle Jerk . Vertebral body tenderness to palpation over Lumbar Facet Loading Test positive Straight Leg Raise: positive at 30 degrees right side/ left side Gaenslen's Test positive Sacral spine : Severe tenderness over the Sacroiliac joint: right side / left side Range of motion: Flexion of the lumbar spine <60 degrees Range of motion: Extension of the lumbar spine <20 degrees Gaenslen's Test positive Estelita test: positive right side / left side Thigh Thrust Test Sacral Thrust Test Assessment and plan: Chronic low back pain secondary to lumbar degenerative disc disease, spondylosis with facet arthropathy without myelopathy Chronic and current use of high-risk medication (Opioids). The patient was counseled about risk of opioid use, psychological risk associated with opioids and was orally counseled to not overuse , divert or sell medications. Pt is to store medication in a safe location. The patient is counseled against driving while using narcotic medications and also not to use alcohol or any illicit recreational drugs. Patient verbalized understanding that the lack of compliance will result in failure to renew narcotic prescription(s) as well as possible discharge from the clinic Diagnoses, prognosis and treatment options including but not limited to physical therapy, surgical interventions, interventional therapies and medication management including narcotics and adjuvant medication were discussed. All patient questions answered MAPS reviewed and it was appropriate. Prescription refill for Tramadol 50mg #60, Neurontin 600mg #90 w 1 RF I have spent less than 30 minutes on patient care today. Dr Shore was available by phone for the evaluation of this patient. The time was used to review the medical records including relevant urine studies and Prescription history (MAPs), review of the available imaging, evaluation and examination of the patient, coordination of care with the medical staff and if applicable referring physicians, as well as creation of the medical record PQRS Narrative: Smoking Status Former smoker Narcotic Agreement Date Signed 11/27/21 Hx Alcohol Use (MH) Yes: Occasional Home Medications: Ambulatory Orders Omeprazole [PriLOSEC] 20 mg PO DAILY 11/24/18 Pravastatin Sodium [Pravachol] 40 mg PO HS 02/27/19 allopurinoL [Zyloprim] 100 mg PO DAILY 10/09/19 Calcium Carbonate/Vitamin D3 [Calcium 600 mg-Vit D3 5 mcg (200 unit)] 1 tab PO DAILY 06/05/21 INSULIN ASPART (NovoLOG) [NovoLOG (formulary)] See Protocol SQ TID-W/MEALS PRN 06/05/21 Clopidogrel [Plavix] 75 mg PO DAILY 08/23/21 predniSONE 10 mg PO DAILY 06/25/22 Aspirin 81 mg PO DAILY #30 tab 06/28/22 Furosemide [Lasix] 40 mg PO DAILY #30 tab 06/28/22 Insulin Detemir (Levemir) [Levemir] 20 unit SQ HS #0 06/28/22 Losartan [Cozaar] 50 mg PO DAILY #30 tab 06/28/22 Spironolactone [Aldactone] 25 mg PO DAILY #30 tab 06/28/22 carvediloL [Coreg] 12.5 mg PO BID #60 tab 06/28/22 Gabapentin 600 mg PO TID 30 Days #90 tab 10/31/22 traMADol HCl [Ultram] 50 mg PO Q12HR PRN 30 Days #60 tab 10/31/22 Controlled Substance Measures - Controlled Substance Measures Is patient prescribed a controlled substance at discharge?: Yes When asked, does pt state using other controlled substances?: No If prescribed controlled substance>3 days was MAPS reviewed?: Yes If Rx opioid, was Start Talking consent form obtained?: Yes Was information provided regarding opioid addiction?: Yes
== END ==
LOC: PNWHC3 10:09
PROVIDERS: ATTEND Specialist
DX: M47.816 Spondylosis without myelopathy or radiculopathy, lumbar region (principal); M51.36 Other intervertebral disc degeneration, lumbar region; G89.29 Other chronic pain; Z79.891 Long term (current) use of opiate analgesic; Z88.8 Allergy status to other drugs, medicaments and biological substances; Z88.1 Allergy status to other antibiotic agents; Z91.048 Other nonmedicinal substance allergy status; Z88.0 Allergy status to penicillin; Z91.041 Radiographic dye allergy status; Z91.013 Allergy to seafood; Z87.891 Personal history of nicotine dependence
CPT/HCPCS: 80307; G0482; G0463; 99212

== ENCOUNTER → 2022-11-13 | Outpatient (CLI) | payer MEDICARE, BC ==
--- NOTE | 2022-11-13 14:45 | CT ---
EXAMINATION TYPE: CT lumbar spine wo con DATE OF EXAM: 11/13/2022 2:19 PM COMPARISON: 05/19/2021 HISTORY: pain CT DLP: 985.3 mGycm Automated exposure control for dose reduction was used. Unenhanced CT of the lumbar spine was performed. Bone and soft tissue window settings are submitted as well as coronal and sagittal reconstructions. L1-L2: There is degenerative disc space narrowing with vacuum disc. Posterior disc bulge with bilater al lateral recess stenosis. Large spurs identified. L2-L3: Lumbar laminectomy with decompression. Pedicular screws and intervertebral body spacers in chi ce. Alignment is within normal limits. L2 methylmethacrylate. L3-L4: Decompressive laminectomy with pedicular screws. Intervertebral body spacer is well-positioned . There is grade 1 anterolisthesis L3 on L4 of 3 mm unchanged from prior study. No evidence for recur rent or residual disease. L4-L5: Decompressive laminectomy with pedicular screws. Intervertebral body spacer is well-positioned . Postoperative alignment is within normal limits. No evidence for recurrent or residual disease. L5-S1: Decompressive laminectomy with pedicular screws. Intervertebral body spacer is well-positioned . Postoperative alignment is within normal limits. No evidence for recurrent or residual disease. IMPRESSION: Stable postoperative alignment. Stable L1-L2 lateral recess stenosis.
--- NOTE | 2022-11-13 22:00 | CT ---
EXAMINATION TYPE: CT thoracic spine wo con CT DLP: 1014.2 mGycm, Automated exposure control for dose reduction was used. DATE OF EXAM: 11/13/2022 4:41 PM COMPARISON: 10/04/2021, 05/21/2019 CLINICAL INDICATION:Male, 82 years old with history of M54.10 M54.50; pain TECHNIQUE: Axial images of the thoracic spine were obtained without contrast. Coronal and sagittal re formats were performed. FINDINGS: Multilevel disc degeneration with osteophyte formation. There is scattered disc space narr owing and vacuum disc phenomenon. There is no evidence for significant spinal canal stenosis. T10-T11 moderate severe left neural foraminal stenosis secondary to degeneration changes of the facet joint. There is no evidence of acute fracture. Dextroscoliosis of the lower thoracic spine. Atherosclerosis of the arterial vasculature. Partial visualization of cardiac conduction leads. Ivon l valve annular calcification are present. Mild paraseptal emphysematous changes are present. Respira tory motion artifact lower lobe groundglass opacities suggested. IMPRESSION: 1. No evidence of acute fracture. 2. No evidence of significant spinal canal stenosis. 3. T10-T11 severe left neural foraminal stenosis 4. Motion artifact with suggestion lower lobe groundglass opacities correlate for pneumonia.
== END | disposition home or self-care (01) ==
LOC: RADCTMAIN 13:49
PROVIDERS: ATTEND Orthopaedic Surgery
DX: M48.061 Spinal stenosis, lumbar region without neurogenic claudication (principal); M99.72 Connective tissue and disc stenosis of intervertebral foramina of thoracic region; M54.10 Radiculopathy, site unspecified
CPT/HCPCS: 72128; 72131

== ENCOUNTER 2022-11-19 09:01 | Emergency (ER) | payer MEDICARE, BC ==
[2022-11-19 09:06] LABS: Glucose,Whole Blood 344 mg/dL (70-110)
[2022-11-19 09:24] VITALS: BP 0/0; PULSE 0; RESP 0; TEMP 97.2
--- NOTE | 2022-11-19 09:33 | ED ---
CPR HPI - General Chief Complaint: Cardiac Arrest/CPR Stated Complaint: Cardiac Arrest Time Seen by Provider: 11/19/22 09:01 Source: family, EMS, RN notes reviewed Mode of arrival: EMS - History of Present Illness Initial Comments: 82-year-old male with a history of heart disease with a defibrillator and pacemaker who apparently was having chest pain yesterday but did not seek medical care. Patient's who did come the emergency department later states that she was helped him to the bathroom when he stated that he could not make it any want to sit down and then became unresponsive. EMS was summoned patient's states that she did initiate CPR and the patient. He was transported to this facility with CPR/ACLS in progress. Patient implantable defibrillator apparently went off without success. Attempt was made by EMS to cardiovert the patient from ventricular fibrillation which apparently did go from ventricular fibrillation to PEA. Patient did have ROSC for approximately 30 seconds and then went back into PEA. He was intubated with a #8 endotracheal tube during this process. He was brought to the emergency department with the Librado device providing compressions.. Patient did have a history of insulin-dependent diabetes hypertension and renal insufficiency. Complaint: collapsed during activity Review of Systems ROS Statement: Those systems with pertinent positive or pertinent negative responses have been documented in the HPI. ROS Other: All systems not noted in ROS Statement are negative. Limitations: ROS unobtainable due to patients medical condition Past Medical History Past Medical History: Unable to Obtain, Coronary Artery Disease (CAD) Additional Past Medical History / Comment(s): pacemaker/defib present History of Any Multi-Drug Resistant Organisms: Unobtainable Past Surgical History: Unable to Obtain Past Psychological History: Unable to Obtain Smoking Status: Unknown if ever smoked Past Alcohol Use History: Unable to Obtain Past Drug Use History: Unable to Obtain General Exam - General Exam Comments Initial Comments: This is a well-developed well-nourished unresponsive male with CPR progress Limitations: altered mental status, physical limitation General appearance: other (Unresponsive) Head exam: Present: atraumatic, normocephalic, normal inspection Eye exam: Present: other (Pupils fixed and dilated approximately 6 mm) ENT exam: Present: other (Orotracheal tube in place) Neck exam: Present: normal inspection Respiratory exam: Present: other (Librado device functioning bilateral breath sounds are appreciated on bag valve assist) GI/Abdominal exam: Present: distended Rectal exam: Present: deferred exam: Present: normal inspection Extremities exam: Present: normal inspection Back exam: Present: normal inspection Neurological exam: Present: other (Unresponsive) Psychiatric exam: Present: other (Unresponsive) Skin exam: Present: pallor (Pallor with cyanosis seen from the upper chest to the face and neck) Course Vital Signs 11/19/22 09:20 Temperature 97.2 F L Pulse Rate 0 L Respiratory 0 L Rate Blood Pressure 0/0 O2 Sat by Pulse 0 L Oximetry Medical Decision Making - Medical Decision Making The patient collapsed Aubrey 40 minutes prior to arrival in the last episode of return of spontaneous circulation was about 20 minutes prior to arrival patient remained pulseless in spite of ACLS efforts. Patient was pronounced at 9:06 AM. I did discuss the case with the medical claims representative's office also with Rob Quarles. I also did discuss the findings with the patient's who did come the emergency department. I also did notify Dr. Price at request of the family. - Lab Data Lab Results 11/19/22 Range/Units 09:03 POC Glucose (mg/dL) 344 H (70-110) mg/dL POC Glu Roll Tension Tester ID Aleksey Phillipsen Critical Care Time Critical Care Time: Yes Total Critical Care Time: 31 Critical Care Time: Critical care time including initial presentation with discussed with paramedics physical exam and history that was available. Discussed with multiple physicians and with medical claims representative and also with the patient's . Documentation of the above. Disposition Clinical Impression: Sudden cardiac , Cardiac arrest with ventricular fibrillation Disposition: Referrals: Anshul Tabares MD [Primary Care Provider] - 1-2 days Decision Date: 11/19/22 Decision Time: 11:17 Preliminary Cause of : Ventricular fibrillation arrest, sudden cardiac
== END 2022-11-19 15:01 | disposition expired ==
LOC: MERGE 09:01 → EC 09:01
DX: I49.01 Ventricular fibrillation (principal)
CPT/HCPCS: 36415; 99285